=== PATIENT | female | born 1950 | race Caucasian/White ===

== ENCOUNTER 2021-10-18 09:45 | Outpatient (CLI) | payer MEDICARE, SELFPAY ==
[2021-10-18 18:46] LABS: Hematocrit 49.3 % (37.0-47.0); Hemoglobin 15.7 g/dL (12.0-15.0); Mean Corpuscular HGB Conc 31.8 g/dl (32-36); Mean Corpuscular Hemoglobin 28.1 pg (26-34); Mean Corpuscular Volume 88.2 fl (80-100); Platelet Count Result 280 k/mm3 (150-375); Red Blood Count 5.59 M/mm3 (4.2-5.4); White Blood Count 8.3 K/mm3 (4.5-10.0)
[2021-10-18 19:07] LABS: Alanine Aminotransferase 21 U/L (4-35); Albumin Level 4.3 g/dL (3.5-5.1); Alkaline Phosphatase 125 U/L (38-126); Anion Gap 7 mmol/L (8-16); Aspartate Amino Transferase 25 U/L (14-36); Bilirubin,Total 0.5 mg/dL (0.2-1.3); Blood Urea Nitrogen 20 mg/dL (7-17); Calcium 9.4 mg/dL (8.4-10.2); Carbon Dioxide 28 mmol/L (22-30); Chloride 104 mmol/L (98-107); Estimated Glomerular Filt Rate 55; Glucose 184 mg/dL (65-110); HDL Direct 46 mg/dL; Potassium 4.6 mmol/L (3.4-5.0); Sodium 139 mmol/L (137-145); Triglycerides 316 mg/dL (<150)
[2021-10-18 19:08] LABS: LDL Cholesterol Direct 237 mg/dL
[2021-10-18 19:22] LABS: Cholesterol 364 mg/dL (0-200)
[2021-10-18 19:36] LABS: Creatinine Urine 86.5 mg/dL
[2021-10-18 19:41] LABS: MALB Creatinine Ratio 168.6 mg/g (0-30); Microalbumin Urine Random 145.8 mg/L (0-16.7)
[2021-10-18 20:33] LABS: Hemoglobin A1C 7.4 % (<5.7)
== END 2021-10-18 09:46 | disposition home or self-care (01) ==
PROVIDERS: PCP Family Medicine; Visit Provider Family Medicine
DX: E11.9 Type 2 diabetes mellitus without complications (principal); I82.90 Acute embolism and thrombosis of unspecified vein; I10 Essential (primary) hypertension
CPT/HCPCS: 36415; 80053; 80061; 82043; 83036; 85027

== ENCOUNTER 2021-10-23 12:20 | Outpatient (CLI) | payer MEDICARE, SELFPAY ==
[2021-10-23 19:10] LABS: Basophils Absolute Auto 0.1 K/mm3 (0.0-0.1); Basophils Percent Auto 0.9 % (0.2-1.2); Eosinophils Absolute Auto 0.1 K/mm3 (0-0.3); Eosinophils Percent Auto 1.1 % (0-4.4); Hematocrit 49.2 % (37.0-47.0); Hemoglobin 15.1 g/dL (12.0-15.0); Immature Granulocyte Absolute 0.04 K/mm3 (0.00-0.031); Immature Granulocyte Percent A 0.4 % (0-0.5); Lymphocytes Absolute Auto 2.83 K/mm3 (0.9-3.2); Lymphocytes Percent Auto 31.8 % (18.3-44.2); Mean Corpuscular HGB Conc 30.7 g/dl (32-36); Mean Corpuscular Hemoglobin 27.5 pg (26-34); Mean Corpuscular Volume 89.6 fl (80-100); Mean Platelet Volume 11.1 fl (7.4-10.4); Monocytes Absolute Auto 0.7 K/mm3 (0.1-0.6); Monocytes Percent Auto 7.9 % (2.6-8.5); Neutrophils Absolute Auto 5.2 K/mm3 (1.3-6.7); Neutrophils Percent Auto 57.9 % (45.5-73.1); Platelet Count Result 290 k/mm3 (150-375); Red Blood Count 5.49 M/mm3 (4.2-5.4); Red Cell Distribution Width 14.1 % (11.5-14.5); White Blood Count 8.9 K/mm3 (4.5-10.0)
[2021-10-26 14:52] LABS: Erythropoietin (EPO) 8.6 mIU/mL (2.6-18.5)
== END 2021-10-23 12:21 | disposition home or self-care (01) ==
PROVIDERS: PCP Family Medicine; Visit Provider Family Medicine
DX: E11.9 Type 2 diabetes mellitus without complications (principal); D75.1 Secondary polycythemia
CPT/HCPCS: 36415; 82668; 85025

== ENCOUNTER 2021-11-29 07:51 | Outpatient (CLI) | payer MEDICARE, SELFPAY ==
[2021-11-29 19:39] LABS: Hematocrit 47.6 % (37.0-47.0); Hemoglobin 14.3 g/dL (12.0-15.0); Mean Corpuscular Hemoglobin 27.4 pg (26-34); Mean Corpuscular Volume 91.4 fl (80-100); Platelet Count Result 280 k/mm3 (150-375); Red Blood Count 5.21 M/mm3 (4.2-5.4); Red Cell Distribution Width 14.8 % (11.5-14.5); White Blood Count 9.4 K/mm3 (4.5-10.0)
== END 2021-11-29 07:52 | disposition home or self-care (01) ==
PROVIDERS: PCP Family Medicine; Visit Provider Family Medicine
DX: D75.1 Secondary polycythemia (principal)
CPT/HCPCS: 36415; 85027

== ENCOUNTER 2021-12-12 15:40 | Outpatient (CLI) | payer MEDICARE, SELFPAY ==
--- NOTE | ~2021-12-12 | CT_ITS ---
EXAMINATION: CT brain wo con DATE: 12/12/2021 15:57 INDICATION: Headache. TECHNIQUE: Computed tomography (CT) of the head was performed without intravenous contrast. The mA wa s adjusted according to patient size. Iterative reconstruction technique was employed. The dose-lengt h product was 605.33 mGy-cm. COMPARISON: None FINDINGS: There are old infarcts in the bilateral basal ganglia. There are scattered areas of low att enuation in the cerebral white matter. There is no intracranial hemorrhage, acute infarction, or abno rmal intracranial mass lesion. The ventricles are normal in size. There is mild mucosal thickening in the paranasal sinuses. There are likely changes of ocular lens replacement surgeries. There is a rig ht otomastoid effusion. There is a left mastoid effusion. IMPRESSION: 1. Old infarcts in the bilateral basal ganglia. 2. Moderate nonspecific cerebral white matter disease, which likely represents chronic small vessel i schemic disease. Reviewed, dictated and finalized at location B. IMPRESSION: 1. Old infarcts in the bilateral basal ganglia. 2. Moderate nonspecific cerebral white matter disease, which likely represents chronic small vessel ischemic disease.
== END 2021-12-12 15:41 | disposition home or self-care (01) ==
PROVIDERS: PCP Family Medicine; Visit Provider Family Medicine
DX: R51.9 Headache, unspecified (principal); R90.82 White matter disease, unspecified; Z86.73 Personal history of transient ischemic attack (TIA), and cerebral infarction without residual deficits
CPT/HCPCS: 70450

== ENCOUNTER 2022-04-23 09:41 | Outpatient (CLI) | payer MEDICARE, SELFPAY ==
[2022-04-23 19:49] LABS: Basophils Absolute Auto 0.1 K/mm3 (0.0-0.1); Eosinophils Absolute Auto 0.1 K/mm3 (0-0.3); Eosinophils Percent Auto 1.5 % (0-4.4); Hematocrit 48.4 % (37.0-47.0); Hemoglobin 14.7 g/dL (12.0-15.0); Immature Granulocyte Absolute 0.03 K/mm3 (0.00-0.031); Immature Granulocyte Percent A 0.3 % (0-0.5); Lymphocytes Absolute Auto 3.01 K/mm3 (0.9-3.2); Lymphocytes Percent Auto 32.5 % (18.3-44.2); Mean Corpuscular HGB Conc 30.4 g/dl (32-36); Mean Corpuscular Hemoglobin 28.4 pg (26-34); Mean Corpuscular Volume 93.6 fl (80-100); Mean Platelet Volume 10.9 fl (7.4-10.4); Monocytes Absolute Auto 0.7 K/mm3 (0.1-0.6); Monocytes Percent Auto 7.8 % (2.6-8.5); Neutrophils Absolute Auto 5.3 K/mm3 (1.3-6.7); Neutrophils Percent Auto 56.9 % (45.5-73.1); Platelet Count Result 306 k/mm3 (150-375); Red Blood Count 5.17 M/mm3 (4.2-5.4); Red Cell Distribution Width 13.5 % (11.5-14.5); White Blood Count 9.3 K/mm3 (4.5-10.0)
[2022-04-23 19:59] LABS: Alanine Aminotransferase 16 U/L (6-35); Albumin Level 4.4 g/dL (3.5-5.1); Alkaline Phosphatase 123 U/L (38-126); Anion Gap 14 mmol/L (8-16); Aspartate Amino Transferase 24 U/L (14-36); Bilirubin,Total 0.7 mg/dL (0.2-1.3); Blood Urea Nitrogen 19 mg/dL (7-17); Calcium 9.7 mg/dL (8.4-10.2); Carbon Dioxide 29 mmol/L (22-30); Chloride 102 mmol/L (98-107); Cholesterol 209 mg/dL (0-200); Estimated Glomerular Filt Rate 49; Glucose 133 mg/dL (65-110); HDL Direct 42 mg/dL; Potassium 4.2 mmol/L (3.4-5.0); Sodium 145 mmol/L (137-145); Triglycerides 191 mg/dL (<150)
[2022-04-23 20:10] LABS: LDL Cholesterol Direct 131 mg/dL
[2022-04-23 21:07] LABS: Creatinine Urine 89.9 mg/dL
[2022-04-23 21:11] LABS: Microalbumin Urine Random 148.3 mg/L (0-16.7)
== END 2022-04-23 09:42 | disposition home or self-care (01) ==
LOC: ANHBWCLAB 09:42
PROVIDERS: PCP Family Medicine; Visit Provider Family Medicine
DX: E78.5 Hyperlipidemia, unspecified (principal); Z78.0 Asymptomatic menopausal state; I10 Essential (primary) hypertension; G47.33 Obstructive sleep apnea (adult) (pediatric); D75.1 Secondary polycythemia; E11.9 Type 2 diabetes mellitus without complications
CPT/HCPCS: 36415; 80053; 80061; 82043; 83036; 85025

== ENCOUNTER 2022-07-30 07:39 | Outpatient (CLI) | payer MEDICARE, SELFPAY ==
--- NOTE | ~2022-07-30 | XR_ITS ---
EXAMINATION: XR finger 4th RT min 2V DATE: 07/30/2022 08:02 INDICATION: Right fourth digit trigger finger TECHNIQUE: Dorsal palmar, lateral and 2 oblique views of the right fourth digit were obtained COMPARISON: None FINDINGS: Bone alignment is normal. There is an ossicle at the dorsal aspect of the fourth distal interphalange al joint along the dorsal base of the distal phalanx where there is an indistinct cortical margin in this could represent either an enthesopathic ossicle at the distal extensor digiti longus tendon paty cent to an erosion versus minimally distracted avulsion fracture of a dorsal osteophyte. Polyarticula r osteoarthritis, severe at the fourth distal interphalangeal joint, moderate severity at the remaini ng interphalangeal joints of the third-fifth digits and mild at multiple additional joints at the rig ht wrist and carpus. There are chronic appearing erosions with sclerotic margins at the fourth distal interphalangeal joint and at the ulnar styloid process. Some prominent lucency with sclerotic margin s at the lunate which could represent erosion or degenerative subchondral cyst. IMPRESSION: 1. Enthesopathic ossicle of the distal extensor digitorum longus tendon of the fourth digit versus av ulsion fracture of osteophyte at the dorsal base of the fourth distal phalanx. Correlate with clinica l history and for point tenderness. 2. 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 Differential would include erosive osteoarthritis, crystalline arthropathy such as gout or other inflammatory art hritis. Reviewed, dictated and finalized at location D. RAFT SKIN BURNISHER IMPRESSION: 1. Enthesopathic ossicle of the distal extensor digitorum longus tendon of the fourth digit versus avulsion fracture of osteophyte at the dorsal base of the f ourth distal phalanx. Correlate with clinical history and for point tenderness. 2. Polyarticular osteoarthritis, severe at the fourth distal interphalangeal emelyn int where there are some periarticular erosions with additional possible erosio n at the ulnar styloid process. Differential would include erosive osteoarthrit is, crystalline arthropathy such as gout or other inflammatory arthritis.
[2022-07-30 19:37] LABS: Alanine Aminotransferase 22 U/L (6-35); Albumin Level 4.1 g/dL (3.5-5.1); Alkaline Phosphatase 123 U/L (38-126); Anion Gap 7 mmol/L (8-16); Aspartate Amino Transferase 25 U/L (14-36); Bilirubin,Total 0.5 mg/dL (0.2-1.3); Blood Urea Nitrogen 15 mg/dL (7-17); Calcium 9.5 mg/dL (8.4-10.2); Carbon Dioxide 29 mmol/L (22-30); Chloride 106 mmol/L (98-107); Estimated Glomerular Filt Rate 54; Glucose 156 mg/dL (65-110); Potassium 4.5 mmol/L (3.4-5.0); Sodium 142 mmol/L (137-145)
[2022-07-30 20:21] LABS: Creatinine Urine 74.5 mg/dL
[2022-07-30 20:47] LABS: Hemoglobin A1C 6.9 % (<5.7)
[2022-07-30 20:49] LABS: MALB Creatinine Ratio 304.8 mg/g (0-30); Microalbumin Urine Random 227.1 mg/L (0-16.7)
== END 2022-07-30 07:40 | disposition home or self-care (01) ==
PROVIDERS: PCP Family Medicine; Visit Provider Family Medicine
DX: M65.30 Trigger finger, unspecified finger (principal); E11.9 Type 2 diabetes mellitus without complications; M19.041 Primary osteoarthritis, right hand
CPT/HCPCS: 36415; 73140; 80053; 82043; 83036

== ENCOUNTER 2022-10-29 10:44 | Outpatient (CLI) | payer MEDICARE, SELFPAY ==
[2022-10-29 19:30] LABS: Basophils Absolute Auto 0.1 K/mm3 (0.0-0.1); Basophils Percent Auto 0.9 % (0.2-1.2); Eosinophils Absolute Auto 0.1 K/mm3 (0-0.3); Eosinophils Percent Auto 1.3 % (0-4.4); Hematocrit 48.1 % (37.0-47.0); Hemoglobin 14.3 g/dL (12.0-15.0); Immature Granulocyte Absolute 0.02 K/mm3 (0.00-0.031); Immature Granulocyte Percent A 0.2 % (0-0.5); Lymphocytes Absolute Auto 3.81 K/mm3 (0.9-3.2); Lymphocytes Percent Auto 41.5 % (18.3-44.2); Mean Corpuscular HGB Conc 29.7 g/dl (32-36); Mean Corpuscular Volume 90.8 fl (80-100); Monocytes Absolute Auto 0.6 K/mm3 (0.1-0.6); Monocytes Percent Auto 6.9 % (2.6-8.5); Neutrophils Absolute Auto 4.5 K/mm3 (1.3-6.7); Neutrophils Percent Auto 49.2 % (45.5-73.1); Platelet Count Result 292 k/mm3 (150-375); Red Cell Distribution Width 14.4 % (11.5-14.5); White Blood Count 9.2 K/mm3 (4.5-10.0)
[2022-10-29 19:50] LABS: Hemoglobin A1C 7.7 % (<5.7)
[2022-10-29 20:21] LABS: Ovalocytes 1+ (NORMAL); Platelet Estimate Adequate (Adequate); Schistocytes None Seen (NORMAL)
[2022-10-29 21:16] LABS: Creatinine Urine 65.9 mg/dL
[2022-10-29 21:19] LABS: MALB Creatinine Ratio 23.1 mg/g (0-30); Microalbumin Urine Random 15.2 mg/L (0-16.7)
== END 2022-10-29 10:45 | disposition home or self-care (01) ==
PROVIDERS: PCP Family Medicine; Visit Provider Family Medicine
DX: E11.9 Type 2 diabetes mellitus without complications (principal); M65.30 Trigger finger, unspecified finger
CPT/HCPCS: 36415; 82043; 83036; 85025

== ENCOUNTER 2023-05-12 07:46 | Outpatient (CLI) | payer MEDICARE, SELFPAY ==
[2023-05-12 19:39] LABS: Alanine Aminotransferase 21 U/L (6-35); Albumin Level 4.3 g/dL (3.5-5.1); Alkaline Phosphatase 95 U/L (38-126); Anion Gap 13 mmol/L (8-16); Aspartate Amino Transferase 33 U/L (14-36); Bilirubin,Total 0.7 mg/dL (0.2-1.3); Blood Urea Nitrogen 22 mg/dL (7-17); Calcium 10.1 mg/dL (8.4-10.2); Carbon Dioxide 28 mmol/L (22-30); Chloride 104 mmol/L (98-107); Estimated Glomerular Filt Rate 26; Glucose 115 mg/dL (65-110); Potassium 4.3 mmol/L (3.4-5.0); Sodium 145 mmol/L (137-145)
[2023-05-12 19:57] LABS: Creatinine Urine 28.5 mg/dL
[2023-05-12 20:02] LABS: MALB Creatinine Ratio 353.3 mg/g (0-30); Microalbumin Urine Random 100.7 mg/L (0-16.7)
[2023-05-12 20:57] LABS: Hemoglobin A1C 6.6 % (<5.7)
== END 2023-05-12 07:47 | disposition home or self-care (01) ==
PROVIDERS: PCP Family Medicine; Visit Provider Family Medicine
DX: E11.9 Type 2 diabetes mellitus without complications (principal)
CPT/HCPCS: 36415; 80053; 82043; 83036

== ENCOUNTER 2023-06-05 08:39 | Outpatient (CLI) | payer MEDICARE, SELFPAY ==
[2023-06-05 21:01] LABS: Albumin Level 4.2 g/dL (3.5-5.1); Anion Gap 7 mmol/L (8-16); Blood Urea Nitrogen 18 mg/dL (7-17); Calcium 9.7 mg/dL (8.4-10.2); Carbon Dioxide 29 mmol/L (22-30); Chloride 104 mmol/L (98-107); Estimated Glomerular Filt Rate 37; Glucose 140 mg/dL (65-110); Phosphorus 3.3 mg/dL (2.5-4.5); Potassium 3.3 mmol/L (3.4-5.0); Sodium 140 mmol/L (137-145)
[2023-06-05 21:07] LABS: Appearance Urine Clear (Clear); Bacteria Urine None Seen /hpf; Bilirubin Urine Negative (Negative); Blood Urine Trace (Negative); Color Urine Yellow (Yellow); Glucose Urine UA Negative (Negative); Ketones Urine Negative (Negative); Leukocyte Esterase Ur Negative LEU/UL (NEGATIVE); Nitrate Urine Negative (Negative); Protein Urine 1+ mg/dL (Negative); RBC Urine 0-2 /hpf (0-2); Specific Grav Ur 1.009 (1.001-1.035); Squamous Epithelial Cell Urine None seen /hpf (Few); Urobilinogen Urine 0.2 mg/dL (<2.0); WBC Urine 0-5 /hpf (0-3)
[2023-06-05 21:14] LABS: Add Urine Microscopic? YES
== END 2023-06-05 08:40 | disposition home or self-care (01) ==
PROVIDERS: PCP Family Medicine; Visit Provider Family Medicine
DX: N18.9 Chronic kidney disease, unspecified (principal)
CPT/HCPCS: 36415; 80069; 81001

== ENCOUNTER 2023-07-10 09:12 | Outpatient (CLI) | payer MEDICARE, SELFPAY ==
[2023-07-10 19:00] LABS: Hemoglobin 11.7 g/dL (12.0-15.0); Mean Corpuscular HGB Conc 27.9 g/dl (32-36); Mean Corpuscular Hemoglobin 24.7 pg (26-34); Mean Corpuscular Volume 88.6 fl (80-100); Mean Platelet Volume 10.8 fl (7.4-10.4); Platelet Count Result 323 k/mm3 (150-375); Red Blood Count 4.74 M/mm3 (4.2-5.4); Red Cell Distribution Width 16.3 % (11.5-14.5); White Blood Count 8.6 K/mm3 (4.5-10.0)
[2023-07-10 19:20] LABS: Parathyroid Intact 45.5 pg/mL (7.5-53.5)
[2023-07-10 19:37] LABS: Creatinine Urine 153.5 mg/dL
[2023-07-10 19:38] LABS: Albumin Level 3.9 g/dL (3.5-5.1); Anion Gap 7 mmol/L (8-16); Blood Urea Nitrogen 20 mg/dL (7-17); Calcium 9.7 mg/dL (8.4-10.2); Carbon Dioxide 33 mmol/L (22-30); Chloride 102 mmol/L (98-107); Complement C3 152 mg/dL (88-165); Creatine Kinase 58 U/L (30-135); Estimated Glomerular Filt Rate 37; Glucose 108 mg/dL (65-110); Phosphorus 2.9 mg/dL (2.5-4.5); Potassium 3.2 mmol/L (3.4-5.0); Sodium 142 mmol/L (137-145)
[2023-07-10 20:04] LABS: Total Protein Urine Random 344 mg/dL; Ur Ttl Prot Creatinine Ratio 2.24 mg/mg (0-0.20)
[2023-07-10 20:47] LABS: Add Urine Microscopic? YES
[2023-07-10 20:48] LABS: Appearance Urine Clear (Clear); Color Urine Yellow (Yellow); Protein Urine 3+ mg/dL (Negative); Specific Grav Ur >= 1.030 (1.001-1.035); pH Urine 6.5 (5.0-9.0)
[2023-07-10 20:49] LABS: Bilirubin Urine Negative (Negative); Blood Urine Trace-Intact (Negative); Glucose Urine UA Negative (Negative); Ketones Urine Trace mg/dL (Negative); Leukocyte Esterase Ur Negative LEU/UL (NEGATIVE); Nitrate Urine Negative (Negative); Urobilinogen Urine 0.2 mg/dL (<2.0)
[2023-07-10 20:50] LABS: Hyaline Casts Urine 0-2 /lpf; Squamous Epithelial Cell Urine Occasional /hpf (Few); WBC Urine 0-3 /hpf (0-3)
[2023-07-12 21:10] LABS: Kappa\\Lambda Light Chains 2.77 (0.26-1.65); Lambda Light Chain 44.5 mg/L (5.7-26.3)
[2023-07-15 18:49] LABS: Complement Total CH50 60 U/mL (31-60)
== END 2023-07-10 09:13 | disposition home or self-care (01) ==
LOC: ANHBWCLAB 09:15
PROVIDERS: PCP Family Medicine; Visit Provider Internal Medicine Nephrology
DX: E78.5 Hyperlipidemia, unspecified (principal); N18.31 Chronic kidney disease, stage 3a
CPT/HCPCS: 36415; 80069; 81001; 82550; 82570; 83883; 83970; 84156; 85027; 86038; 86039; 86160; 86162; 86334

== ENCOUNTER 2023-07-15 12:35 | Outpatient (CLI) | payer MEDICARE, SELFPAY ==
[2023-07-15 19:29] LABS: Total Volume 24 Hour Urine 1500 ml
[2023-07-21 18:09] LABS: Albumin 28 %; Pro/Creat Ratio 3227 mg/g creat (<150); Pro/Creat Ratio mg/mg 3.227 (<0.150); Protein,total, 24 Hr Ur 2895 mg/24 h (<150)
== END 2023-07-15 12:36 | disposition home or self-care (01) ==
PROVIDERS: PCP Family Medicine; Visit Provider Internal Medicine Nephrology
DX: N18.31 Chronic kidney disease, stage 3a (principal)
CPT/HCPCS: 81050; 84540; 86335

== ENCOUNTER 2023-08-11 09:21 | Outpatient (CLI) | payer MEDICARE, SELFPAY ==
[2023-08-11 19:23] LABS: Erythrocyte Sedimentation Rate 19 mm/hr (0-20)
[2023-08-11 20:38] LABS: Rheumatoid Factor < 12.0 IU/ML (<12)
[2023-08-11 21:25] LABS: Albumin Level 4.1 g/dL (3.5-5.1); Anion Gap 8 mmol/L (8-16); Blood Urea Nitrogen 22 mg/dL (7-17); Calcium 10.2 mg/dL (8.4-10.2); Carbon Dioxide 26 mmol/L (22-30); Chloride 106 mmol/L (98-107); Estimated Glomerular Filt Rate 28; Glucose 135 mg/dL (65-110); Phosphorus 3.1 mg/dL (2.5-4.5); Potassium 3.7 mmol/L (3.4-5.0); Sodium 140 mmol/L (137-145)
[2023-08-14 03:57] LABS: Anti Glomerular Basement Memb <1.0 AI (<1.0)
[2023-08-14 10:40] LABS: SM Antibody <1.0; SM/RNP Antibody <1.0
[2023-08-14 10:41] LABS: SS-A <1.0; SS-B <1.0
[2023-08-14 23:00] LABS: ANCA Screen Negative (Negative)
[2023-08-16 14:51] LABS: Anti Nuclear Antibody Titer 1:40 (Negative)
[2023-08-17 22:32] LABS: Cryoglobulin, QL Negative (Negative)
== END 2023-08-11 09:22 | disposition home or self-care (01) ==
PROVIDERS: PCP Family Medicine; Visit Provider Internal Medicine Nephrology
DX: R76.0 Raised antibody titer (principal); N18.31 Chronic kidney disease, stage 3a
CPT/HCPCS: 36415; 80069; 82595; 83520; 85652; 86036; 86038; 86039; 86225; 86235; 86430

== ENCOUNTER 2023-08-13 08:14 | Outpatient (CLI) | payer MEDICARE, SELFPAY ==
[2023-08-13 18:26] LABS: Hemoglobin A1C 7.7 % (<5.7)
[2023-08-13 18:52] LABS: Cholesterol 188 mg/dL (0-200); HDL Direct 35 mg/dL; Triglycerides 262 mg/dL (<150)
[2023-08-13 19:03] LABS: LDL Cholesterol Direct 94 mg/dL
[2023-08-13 19:07] LABS: Creatinine Urine 17.4 mg/dL
[2023-08-13 19:17] LABS: MALB Creatinine Ratio 467.8 mg/g (0-30); Microalbumin Urine Random 81.4 mg/L (0-16.7)
== END 2023-08-13 08:15 | disposition home or self-care (01) ==
PROVIDERS: PCP Nurse Practitioner Adult Health; Visit Provider Nurse Practitioner Adult Health
DX: E11.9 Type 2 diabetes mellitus without complications (principal)
CPT/HCPCS: 36415; 80061; 82043; 83036

== ENCOUNTER 2023-11-04 09:24 | Outpatient (CLI) | payer MEDICARE, SELFPAY ==
[2023-11-04 19:25] LABS: Erythrocyte Sedimentation Rate 29 mm/hr (0-20)
[2023-11-04 19:45] LABS: Rheumatoid Factor < 12.0 IU/ML (<12)
[2023-11-04 19:45] LABS: Parathyroid Intact 29.9 pg/mL (7.5-53.5)
[2023-11-04 19:52] LABS: Creatinine Urine 116.3 mg/dL
[2023-11-04 20:02] LABS: Albumin Level 4.6 g/dL (3.5-5.1); Anion Gap 9 mmol/L (4-12); Blood Urea Nitrogen 20 mg/dL (7-17); Calcium 10.5 mg/dL (8.4-10.2); Carbon Dioxide 25 mmol/L (22-30); Chloride 106 mmol/L (98-107); Estimated Glomerular Filt Rate 26; Glucose 120 mg/dL (65-110); Phosphorus 3.6 mg/dL (2.5-4.5); Potassium 3.9 mmol/L (3.4-5.0); Sodium 140 mmol/L (137-145)
[2023-11-04 20:42] LABS: Total Protein Urine Random 319 mg/dL; Ur Ttl Prot Creatinine Ratio 2.74 mg/mg (0-0.20)
[2023-11-05 14:54] LABS: SM Antibody <1.0 NEG AI (<1.0 NEG); SM/RNP Antibody <1.0 NEG AI (<1.0 NEG); SS-A <1.0 NEG AI (<1.0 NEG); SS-B <1.0 NEG AI (<1.0 NEG)
[2023-11-07 14:08] LABS: Anti Glomerular Basement Memb <1.0 AI
[2023-11-08 04:54] LABS: ANCA Screen NEGATIVE (NEGATIVE)
[2023-11-11 11:09] LABS: Cryoglobulin, QL Negative (Negative)
== END 2023-11-04 09:25 | disposition home or self-care (01) ==
PROVIDERS: PCP Family Medicine; Visit Provider Internal Medicine Nephrology
DX: R76.0 Raised antibody titer (principal); N18.31 Chronic kidney disease, stage 3a
CPT/HCPCS: 36415; 80069; 82570; 82595; 83520; 83970; 84156; 85652; 86036; 86038; 86225; 86235; 86430

== ENCOUNTER 2024-02-11 07:39 | Outpatient (CLI) | payer MEDICARE, SELFPAY ==
[2024-02-11 19:02] LABS: Hemoglobin 13.2 g/dL (12.0-15.0); Mean Corpuscular HGB Conc 29.3 g/dl (32-36); Mean Corpuscular Hemoglobin 26.6 pg (26-34); Mean Corpuscular Volume 90.5 fl (80-100); Mean Platelet Volume 11.1 fl (7.4-10.4); Platelet Count Result 320 k/mm3 (150-375); Red Blood Count 4.97 M/mm3 (4.2-5.4); Red Cell Distribution Width 15.9 % (11.5-14.5); White Blood Count 10.9 K/mm3 (4.5-10.0)
[2024-02-11 20:20] LABS: Creatinine Urine 39.5 mg/dL; Creatinine Urine 40.1 mg/dL; Parathyroid Intact 26.3 pg/mL (7.5-53.5); Total Protein Urine Random 92 mg/dL; Ur Ttl Prot Creatinine Ratio 2.33 mg/mg (0-0.20)
[2024-02-11 20:25] LABS: MALB Creatinine Ratio 274.1 mg/g (0-30); Microalbumin Urine Random 109.9 mg/L (0-16.7)
[2024-02-11 20:29] LABS: Cholesterol 170 mg/dL (0-200); Estimated Glomerular Filt Rate 23; HDL Direct 41 mg/dL; Triglycerides 187 mg/dL (<150)
[2024-02-11 20:32] LABS: Add Urine Microscopic? YES; Appearance Urine Clear (Clear); Bacteria Urine Rare /hpf; Bilirubin Urine Negative (Negative); Blood Urine Trace (Negative); Color Urine Yellow (Yellow); Glucose Urine UA Negative (Negative); Hyaline Casts Urine Present /lpf; Ketones Urine Negative (Negative); Leukocyte Esterase Ur Trace LEU/UL (Negative); Need Manual Microscopic Reviewed; Nitrate Urine Negative (Negative); Protein Urine 1+ mg/dL (Negative); RBC Urine 0-2 /hpf (0-2); Squamous Epithelial Cell Urine Occasional /hpf (Few); Urobilinogen Urine 0.2 mg/dL (<2.0); WBC Urine 0-5 /hpf (0-3)
[2024-02-11 20:40] LABS: LDL Cholesterol Direct 94 mg/dL
[2024-02-11 20:54] LABS: Albumin Level 4.2 g/dL (3.5-5.1); Anion Gap 10 mmol/L (4-12); Blood Urea Nitrogen 20 mg/dL (7-17); Calcium 10.3 mg/dL (8.4-10.2); Carbon Dioxide 26 mmol/L (22-30); Chloride 106 mmol/L (98-107); Estimated Glomerular Filt Rate 22; Glucose 92 mg/dL (65-110); Phosphorus 3.4 mg/dL (2.5-4.5); Potassium 4.6 mmol/L (3.4-5.0); Sodium 142 mmol/L (137-145)
== END 2024-02-11 07:40 | disposition home or self-care (01) ==
LOC: ANHBWCLAB 07:40
PROVIDERS: Internal Medicine Nephrology; PCP Nurse Practitioner Adult Health; Visit Provider Nurse Practitioner Adult Health
DX: E11.22 Type 2 diabetes mellitus with diabetic chronic kidney disease (principal); N18.31 Chronic kidney disease, stage 3a; E78.5 Hyperlipidemia, unspecified; R20.2 Paresthesia of skin
CPT/HCPCS: 36415; 80061; 80069; 81001; 82043; 82565; 82570; 82607; 82746; 83036; 83970; 84156; 85027

== ENCOUNTER 2024-04-12 10:44 | Outpatient (CLI) | payer MEDICARE, SELFPAY ==
--- NOTE | ~2024-04-12 | US_ITS ---
Renal-Bladder ultrasound Clinical History: Chronic kidney disease Technique: Real-time sonographic imaging of the kidneys and urinary bladder was performed. Findings: The right kidney measures 11.8 cm in length and the left kidney measures 9.4 cm. There is n o hydronephrosis or renal calculus identified. Renal cortical echogenicity is mildly increased. No re nal mass lesion is identified. The urinary bladder is collapsed, limiting evaluation. Impression: Mildly echogenic kidneys, suggestive of chronic medical renal disease. Reviewed, dictated and finalized at location M. Impression: Mildly echogenic kidneys, suggestive of chronic medical renal disease.
== END 2024-04-12 10:45 | disposition home or self-care (01) ==
LOC: GOSHIMG 10:44
PROVIDERS: PCP Nurse Practitioner Adult Health; Visit Provider Internal Medicine Nephrology
DX: R93.429 Abnormal radiologic findings on diagnostic imaging of unspecified kidney (principal); N18.31 Chronic kidney disease, stage 3a
CPT/HCPCS: 76775

== ENCOUNTER 2024-04-19 08:18 | Outpatient (CLI) | payer MEDICARE, SELFPAY ==
[2024-04-19 18:59] LABS: Hematocrit 42.6 % (37.0-47.0); Hemoglobin 12.6 g/dL (12.0-15.0); Mean Corpuscular HGB Conc 29.6 g/dl (32-36); Mean Corpuscular Volume 91.2 fl (80-100); Mean Platelet Volume 10.8 fl (7.4-10.4); Platelet Count Result 286 k/mm3 (150-375); Red Blood Count 4.67 M/mm3 (4.2-5.4); Red Cell Distribution Width 15.9 % (11.5-14.5); White Blood Count 10.7 K/mm3 (4.5-10.0)
[2024-04-19 19:26] LABS: Albumin Level 4.3 g/dL (3.5-5.1); Anion Gap 10 mmol/L (4-12); Blood Urea Nitrogen 28 mg/dL (7-17); Carbon Dioxide 27 mmol/L (22-30); Chloride 103 mmol/L (98-107); Estimated Glomerular Filt Rate 22; Glucose 105 mg/dL (65-110); Phosphorus 4.2 mg/dL (2.5-4.5); Potassium 4.2 mmol/L (3.4-5.0); Sodium 140 mmol/L (137-145)
[2024-04-19 19:31] LABS: Creatinine Urine 51.2 mg/dL; Total Protein Urine Random 136 mg/dL; Ur Ttl Prot Creatinine Ratio 2.66 mg/mg (0-0.20)
[2024-04-19 21:18] LABS: Parathyroid Intact < 14.5 pg/mL (14.5-75.2)
== END 2024-04-19 08:19 | disposition home or self-care (01) ==
PROVIDERS: PCP Nurse Practitioner Adult Health; Visit Provider Internal Medicine Nephrology
DX: E78.5 Hyperlipidemia, unspecified (principal); N18.31 Chronic kidney disease, stage 3a
CPT/HCPCS: 36415; 80069; 82570; 83970; 84156; 85027

== ENCOUNTER 2024-06-03 09:10 | Outpatient (CLI) | payer MEDICARE, SELFPAY ==
[2024-06-03 20:12] LABS: Cholesterol 189 mg/dL (0-200); HDL Direct 39 mg/dL; Triglycerides 213 mg/dL (<150)
[2024-06-03 20:23] LABS: LDL Cholesterol Direct 98 mg/dL
[2024-06-03 21:06] LABS: Creatinine Urine 41.2 mg/dL; Total Protein Urine Random 132 mg/dL
[2024-06-03 21:17] LABS: Hemoglobin A1C 6.7 % (<5.7)
== END 2024-06-03 09:11 | disposition home or self-care (01) ==
PROVIDERS: PCP Nurse Practitioner Adult Health; Visit Provider Internal Medicine Nephrology
DX: E11.22 Type 2 diabetes mellitus with diabetic chronic kidney disease (principal); N18.31 Chronic kidney disease, stage 3a; E78.5 Hyperlipidemia, unspecified
CPT/HCPCS: 36415; 80061; 82570; 83036; 84156

== ENCOUNTER 2024-08-25 07:19 | Outpatient (CLI) | payer MEDICARE, SELFPAY ==
--- OUTSIDE RECORDS SUMMARY | 2024-08-25 07:24 | XMS_ITS | CONTINUITY OF CARE DOCUMENT ---
Author Name be lr Address Unknown Organization [facility] Address [address] [place] [address] [address] [place] [address] Phone [phone] Care Team Providers Care Speech Correction Consultant Name Role Phone Choco Linda MD Unavailable [phone]
--- OUTSIDE RECORDS SUMMARY | 2024-08-25 07:24 | XMS_ITS | Encounter Summary ---
Author Organization [facility] Address [address] [place] [address] Phone Care Team Providers Care Warehouse Coordinator Name Role Phone Valerie Grimaldo MD Primary Care Provider + [phone] Cody Polk MD Unavailable [phone] Wen Nelson MD Unavailable José Miguel Alva MD Unavailable +[phone] Drew Martínez MD Unavailable [phone] Lopez Nunez DO Unavailable [phone] Autumn Chapman OD Unavailable [phone] Alcon Camacho MD Unavailable [phone] Tess Brennan MD Unavailable [phone] Tee Moura MD Unavailable [phone] Michel Linda MD Unavailable Verena Crespo MD Unavailable [phone] Unknown, Notinfile Primary Care Provider Unavail able Julian Encarnacion MD Primary Care Provider Encounter Details Date Type Department Care Team (Late st Contact Info) Description 11/07/2017 Orders Only [facility] Provider, MD Tayler [address] [place] [address] Social History Tobacco Use Types Packs/Day Years Used Date Smoking Tobacco: Never Smokeless Tobacco: Never Alcohol Use Standard Drinks/Week Comments No 0 (1 standard drink = 0.6 oz pur e alcohol) Comments No Sex and Gender Information Value Date Recorded Sex Assigned at Not on file 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 Historical Provider LAB BLOOD ORDERABLES Soledad l Result documented in this encounter Visit Diagnoses Not on filedocumented in this encounter Care Teams Warehouse Coordinator Relationship Specialty Start Date End Date Valerie Grimaldo MD PCP - General 09/27/16 03/16/20 Unknown, Notinfile PCP - General 03/17/20 11/21/20 Julian Encarnacion MD [address] [address] [place] [address] PCP - General Family Medicine 11/22/20 [place] [address] [facility] [address] [place] [address] Pulmonary Disease 02/27/17 Wen Nelson MD [address] [address] Obstetrics and Gynecology 02/27/17 José Miguel Alva MD [address] [facility] [address] [place], [place] [id number] Gynecologic Oncology 02/27/17 Drew Martínez MD [address] [place] [address] Orthopedic Surgery 02/27/17 Lopez Nunez DO [address] [place] [address] Consulting Physician Gastroenterology 04/25/17 Autumn Chapman OD [address] [place] [address] Optometry 04/28/17 [place] [address] [address] [facility] [address] [place] [address] Consulting Physician Cardiology 09/07/17 Tess Brennan MD [address] [address] Referring Physician Gastroenterology 09/25/17 Tee Moura MD [address] [address] Referring Physician Surgery 11/29/17 Michel Linda MD [address] [address] Referring Physician General Surgery 03/11/19 Verena Crespo MD [address] [address] Consulting Physician Nephrology 03/13/19 documented as of this encounter
--- OUTSIDE RECORDS SUMMARY | 2024-08-25 07:24 | XMS_ITS | Encounter Summary ---
Author Organization [facility] Address [address] [place] [address] Phone Care Team Providers Care Oracle Identity Management Consultant Name Role Phone Valerie Grimaldo MD Primary Care Provider + [phone] Cody Polk MD Unavailable [phone] Wen Nelson MD Unavailable José Miguel Alva MD Unavailable +[phone] Drew Martínez MD Unavailable [phone] Lopez Nunez DO Unavailable [phone] Autumn Chapman OD Unavailable [phone] Alcon Camacho MD Unavailable [phone] Tess Brennan MD Unavailable [phone] Tee Moura MD Unavailable [phone] Michel Linda MD Unavailable Verena Crespo MD Unavailable [phone] Unknown, Notinfile Primary Care Provider Unavail able Julian Encarnacion MD Primary Care Provider Encounter Details Date Type Department Care Team (Late st Contact Info) Description 10/20/2017 Orders Only [facility] Provider, MD Tayler [address] [place] [address] Social History Tobacco Use Types Packs/Day Years Used Date Smoking Tobacco: Never Smokeless Tobacco: Never Alcohol Use Standard Drinks/Week Comments No 0 (1 standard drink = 0.6 oz pur e alcohol) Comments No Sex and Gender Information Value Date Recorded Sex Assigned at Not on file 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 Historical Provider LAB BLOOD ORDERABLES Soledad l Result documented in this encounter Visit Diagnoses Not on filedocumented in this encounter Care Teams Oracle Identity Management Consultant Relationship Specialty Start Date End Date Valerie Grimaldo MD PCP - General 09/27/16 03/16/20 Unknown, Notinfile PCP - General 03/17/20 11/21/20 Julian Encarnacion MD [address] [address] [place] [address] PCP - General Family Medicine 11/22/20 [place] [address] [facility] [address] [place] [address] Pulmonary Disease 02/27/17 Wen Nelson MD [address] [address] Obstetrics and Gynecology 02/27/17 José Miguel Alva MD [address] [facility] [address] [place], [place] [phone] Gynecologic Oncology 02/27/17 Drew Martínez MD [address] [place] [address] Orthopedic Surgery 02/27/17 Lopez Nunez DO [address] [place] [address] Consulting Physician Gastroenterology 04/25/17 Autumn Chapman OD [address] [place] [address] Optometry 04/28/17 [place] [address] [address] [facility] [address] [place] [address] Consulting Physician Cardiology 09/07/17 Tess Brennan MD [address] [address] Referring Physician Gastroenterology 09/25/17 Tee Moura MD [address] [address] Referring Physician Surgery 11/29/17 Michel Linda MD [address] [address] Referring Physician General Surgery 03/11/19 Verena Crespo MD [address] [address] Consulting Physician Nephrology 03/13/19 documented as of this encounter
--- OUTSIDE RECORDS SUMMARY | 2024-08-25 07:24 | XMS_ITS | Encounter Summary ---
Author Organization [facility] Address [address] [place] [address] Phone Care Team Providers Care Baccarat Dealer Name Role Phone Valerie Grimaldo MD Primary Care Provider + [phone] Cody Polk MD Unavailable [phone] Wen Nelson MD Unavailable [phone] José Miguel Alva MD Unavailable [phone] Drew Martínez MD Unavailable [phone] Lopez Nunez DO Unavailable [phone] Autumn Chapman OD Unavailable [phone] Alcon Camacho MD Unavailable [phone] Tess Brennan MD Unavailable [phone] Tee Moura MD Unavailable [phone] Michel Linda MD Unavailable Verena Crespo MD Unavailable [phone] Unknown, Notinfile Primary Care Provider Unavail able Julian Encarnacion MD Primary Care Provider Encounter Details Date Type Department Care Team (Late st Contact Info) Description 11/26/2017 Orders Only [facility] Provider, MD Tayler [address] [place] [address] Social History Tobacco Use Types Packs/Day Years Used Date Smoking Tobacco: Never Smokeless Tobacco: Never Alcohol Use Standard Drinks/Week Comments No 0 (1 standard drink = 0.6 oz pur e alcohol) Comments No Sex and Gender Information Value Date Recorded Sex Assigned at Not on file 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 Historical Provider LAB BLOOD ORDERABLES Soledad l Result documented in this encounter Visit Diagnoses Not on filedocumented in this encounter Care Teams Baccarat Dealer Relationship Specialty Start Date End Date Valerie Grimaldo MD PCP - General 09/27/16 03/16/20 Unknown, Notinfile PCP - General 03/17/20 11/21/20 Julian Encarnacion MD [address] [address] [place] [address] PCP - General Family Medicine 11/22/20 [place] [address] [facility] [address] [place] [address] Pulmonary Disease 02/27/17 Wen Nelson MD [address] [address] Obstetrics and Gynecology 02/27/17 José Miguel Alva MD [address] [facility] [address] [place], [place] [id number] Gynecologic Oncology 02/27/17 Drew Martínez MD [address] [place] [address] Orthopedic Surgery 02/27/17 Lopez Nunez DO [address] [place] [address] Consulting Physician Gastroenterology 04/25/17 Autumn Chapman OD [address] [place] [address] Optometry 04/28/17 [place] [address] [address] [facility] [address] [place] [address] Consulting Physician Cardiology 09/07/17 Tess Brennan MD [address] [address] Referring Physician Gastroenterology 09/25/17 Tee Moura MD [address] [address] Referring Physician Surgery 11/29/17 Michel Linda MD [address] [address] Referring Physician General Surgery 03/11/19 Verena Crespo MD [address] [address] Consulting Physician Nephrology 03/13/19 documented as of this encounter
--- OUTSIDE RECORDS SUMMARY | 2024-08-25 07:24 | XMS_ITS | Encounter Summary ---
Author Organization [facility] Address [address] [place] [address] Phone Care Team Providers Care Circulator Name Role Phone Valerie Grimaldo MD Primary Care Provider + [phone] Cody Polk MD Unavailable [phone] Wen Nelson MD Unavailable [phone] José Miguel Alva MD Unavailable [phone] Drew Martínez MD Unavailable [phone] Lopez Nunez DO Unavailable [phone] Autumn Chapman OD Unavailable [phone] Alcon Camacho MD Unavailable [phone] Tess Brennan MD Unavailable [phone] Tee Moura MD Unavailable [phone] Michel Linda MD Unavailable Verena Crespo MD Unavailable [phone] Unknown, Notinfile Primary Care Provider Unavail able Julian Encarnacion MD Primary Care Provider [phone] Encounter Details Date Type Department Care Team (Late st Contact Info) Description 10/27/2017 Orders Only [facility] Provider, MD Tayler [address] [place] [address] Social History Tobacco Use Types Packs/Day Years Used Date Smoking Tobacco: Never Smokeless Tobacco: Never Alcohol Use Standard Drinks/Week Comments No 0 (1 standard drink = 0.6 oz pur e alcohol) Comments No Sex and Gender Information Value Date Recorded Sex Assigned at Not on file 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 Historical Provider LAB BLOOD ORDERABLES Soledad l Result documented in this encounter Visit Diagnoses Not on filedocumented in this encounter Care Teams Circulator Relationship Specialty Start Date End Date Valerie Grimaldo MD PCP - General 09/27/16 03/16/20 Unknown, Notinfile PCP - General 03/17/20 11/21/20 Julian Encarnacion MD [address] [address] [place] [address] PCP - General Family Medicine 11/22/20 [place] [address] [facility] [address] [place] [address] Pulmonary Disease 02/27/17 Wen Nelson MD [address] [address] Obstetrics and Gynecology 02/27/17 José Miguel Alva MD [address] [facility] [address] [place], [place] [id number] Gynecologic Oncology 02/27/17 Drew Martínez MD [address] [place] [address] Orthopedic Surgery 02/27/17 Lopez Nunez DO [address] [place] [address] Consulting Physician Gastroenterology 04/25/17 Autumn Chapman OD [address] [place] [address] Optometry 04/28/17 [place] [address] [address] [facility] [address] [place] [address] Consulting Physician Cardiology 09/07/17 Tess Brennan MD [address] [address] Referring Physician Gastroenterology 09/25/17 Tee Moura MD [address] [address] Referring Physician Surgery 11/29/17 Michel Linda MD [address] [address] Referring Physician General Surgery 03/11/19 Verena Crespo MD [address] [address] Consulting Physician Nephrology 03/13/19 documented as of this encounter
--- OUTSIDE RECORDS SUMMARY | 2024-08-25 07:24 | XMS_ITS | Encounter Summary ---
Author Organization [facility] Address [address] [place] [address] Phone Care Team Providers Care Lead Python Developer Name Role Phone Valerie Grimaldo MD Primary Care Provider + [phone] Cody Polk MD Unavailable [phone] Wen Nelson MD Unavailable José Miguel Alva MD Unavailable [phone] Drew Martínez MD Unavailable [phone] Lopez Nunez DO Unavailable [phone] Autumn Chapman OD Unavailable [phone] Alcon Camacho MD Unavailable [phone] Tess Brennan MD Unavailable [phone] Tee Moura MD Unavailable [phone] Michel Linda MD Unavailable Verena Crespo MD Unavailable [phone] Unknown, Notinfile Primary Care Provider Unavail able Julian Encarnacion MD Primary Care Provider Encounter Details Date Type Department Care Team (Late st Contact Info) Description 10/10/2017 Orders Only [facility] Provider, MD [place] [address] [place] [id number] Social History Tobacco Use Types Packs/Day Years Used Date Smoking Tobacco: Never Smokeless Tobacco: Never Alcohol Use Standard Drinks/Week Comments No 0 (1 standard drink = 0.6 oz pur e alcohol) Comments No Sex and Gender Information Value Date Recorded Sex Assigned at Not on file 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 Historical Provider LAB BLOOD ORDERABLES Soledad l Result documented in this encounter Visit Diagnoses Not on filedocumented in this encounter Care Teams Lead Python Developer Relationship Specialty Start Date End Date Valerie Grimaldo MD PCP - General 09/27/16 03/16/20 Unknown, Notinfile PCP - General 03/17/20 11/21/20 Julian Encarnacion MD [address] [address] [place] [address] PCP - General Family Medicine 11/22/[address] [place] [address] [facility] [address] [place] [address] Pulmonary Disease 02/27/17 Wen Nelson MD [address] [address] Obstetrics and Gynecology 02/27/17 José Miguel Alva MD [address] [facility] [address] [place], [place] [id number] Gynecologic Oncology 02/27/17 Drew Martínez MD [address] [place] [address] Orthopedic Surgery 02/27/17 Lopez Nunez DO [address] [place] [address] Consulting Physician Gastroenterology 04/25/17 Autumn Chapman OD [address] [place] [address] Optometry 04/28/17 [place] [address] [facility] [address] [place] [address] Consulting Physician Cardiology 09/07/17 Tess Brennan MD [address] [address] Referring Physician Gastroenterology 09/25/17 Tee Moura MD [address] [address] Referring Physician Surgery 11/29/17 Michel Linda MD [address] [address] Referring Physician General Surgery 03/11/19 Verena Crespo MD [address] [address] Consulting Physician Nephrology 03/13/19 documented as of this encounter
--- OUTSIDE RECORDS SUMMARY | 2024-08-25 07:25 | XMS_ITS | Clinical Summary ---
Author Organization [facility] Address [address] [place] [address] Care Team Providers Care Bridal Gown Fitter Name Role Phone Cody Polk MD Unavailable [phone] Wen Nelson MD Unavailable [phone] José Miguel Alva MD Unavailable [phone] Drew Martínez MD Unavailable [phone] Lopez Nunez DO Unavailable [phone] Autumn Chapman OD Unavailable [phone] Alcon Camacho MD Unavailable [phone] Tess Brennan MD Unavailable [phone] Tee Moura MD Unavailable [phone] Michel Linda MD Unavailable Verena Crespo MD Unavailable [phone] Julian Encarnacion MD Primary Care Provider Allergies Active Allergy Reactions Criticality Noted Date Comments Enoxaparin Other (See comments) Low 04/17/2018 hemorrhage after taking Inositol Unknown Low Metformin Diarrhea Low Reaction: Diarrhea, Can take extended release Metformin Reaction: Diarrhea, Niacin Rash Medium 07/05/2014 Penicillins Itching Low 07/05/2014 Medications aspirin 81 mg tabletIndications: ASVD (arteriosclerotic vascular disease) Take 81 mg by mouth daily. Active blood-glucose meter kitIndications:Typ e 2 diabetes mellitus with other diabetic kidney complication, without long-term current use of insulin ([facility]) Use with glucose strips - monitor glucose checks 2 times daily. 1 each 8 Active cyanocobalamin (Vitamin B-12) 1,000 mcg tabletIndications: Type 2 diabetes mellitus with other diabetic kidney complication, without long-term current use of insulin ([facility]) Take 1 tablet (1,000 mcg total) by mouth daily 90 tablet 3 9 Active pen needle, diabetic 32 gauge x 11/12 needleIndications: Type 2 diabetes mellitus with other diabetic kidney complication, without long-term current use of insulin ([facility]) 1 Dose daily 100 each 11 9 Active blood glucose diagnostic (ACCU-CHEK CECILIA PLUS TEST STRP) stripIndications:t ype 2 diabetes mellitus Use to test blood sugar twice daily. 200 each 1 9 Active allopurinol (ZYLOPRIM) 300 mg tabletIndications: Gouty arthritis Take 1 tablet (300 mg total) by mouth daily 90 tablet 1 9 Active omeprazole (PriLOSEC) 20 mg capsuleIndications :Gastric ulcer with hemorrhage, unspecified chronicity Take 1 capsule (20 mg total) by mouth daily 90 capsule 1 9 Active metFORMIN (GLUMETZA) 500 mg 24 hr tabletIndications: Type 2 diabetes mellitus with stage 4 chronic kidney disease, with long-term current use of insulin ([facility]) Take 500 mg by mouth daily with breakfast Active warfarin (COUMADIN) 1 mg tabletIndications: Recurrent pulmonary embolism (CMS/HCC) ([facility]) Take 1 -3 tablets by mouth daily as directed by MD per INR results. 270 tablet 1 9 Active rosuvastatin (CRESTOR) 40 mg tabletIndications: Ischemic heart disease due to coronary artery obstruction (CMS/HCC) ([facility]),Multiple-typ e hyperlipidemia TAKE 1 TABLET BY MOUTH DAILY 90 tablet 1 0 Active acetaminophen-code ine (TYLENOL with CODEINE #3) 300-30 mg per tabletIndications: Arthritis TAKE 1 TABLET BY MOUTH TWICE DAILY NEEDED FOR PAIN 60 tablet 2 0 Active dulaglutide (TRULICITY) 0.75 mg/0.5 mL pen injectorIndication s:type 2 diabetes mellitus Inject 0.5 mL (0.75 mg total) under the skin once a week 4 pen 3 0 Active warfarin (COUMADIN) 4 mg tabletIndications: Recurrent pulmonary embolism (CMS/HCC) (HCC) Take 1 tablet by mouth once daily or as directed by MD per INR results. 90 tablet 0 Active furosemide (LASIX) 40 mg tabletIndications: Hypertension complicating diabetes (HCC),Chronic diastolic heart failure (HCC) Take 1 tablet (40 mg total) by mouth daily 90 tablet 0 Active metoprolol (LOPRESSOR) 100 mg tabletIndications: Hypertension complicating diabetes (HCC),Ischemic heart disease due to coronary artery obstruction (CMS/HCC) (HCC) Take 1 tablet (100 mg total) by mouth 2 (two) times a day 180 tablet 0 Active insulin NPH (HumuLIN N, NovoLIN N) 100 unit/mL (3 mL) insulin penIndications:Typ e 2 diabetes mellitus with stage 4 chronic kidney disease, with long-term current use of insulin ([facility]) Inject 30 Units under the skin 2 (two) times a day before breakfast and dinner 5 pen 2 0 Active Active Problems Problem Noted Date Diagnosed Date Abnormal mammogram 10/19/2019 Overview (10/19/2019): Dr. Moura evaluation October 18, 2019 documented BI-RADS 3 and plan for six- month repeat diagnostic mammogram and no surgery now Arthritis 12/01/2018 Gouty tophus 09/21/2018 Chronic pain disorder 11/29/2017 Left breast mass 11/29/2017 Overview (11/29/2017): Images from the original note were not included. Dr. Moura to perform biopsy left breast November 2017 Breast sonogram and mammogram (+) Anemia due to GI blood loss 10/07/2017 Pulmonary hypertension 10/05/2017 Overview (10/05/2017): Conditions secondary to obesity, recurrent pulmonary emboli, obstructive sleep apnea ECHO AUGUST 2017 (+) PULMONARY HYPERTENSION DR. MAIER [facility] Valves in general are poorly visualized. Normal left ventricular size, thickness and hyperdynamic systolic function, estimated ejection of >70%. E/A reversal on transmitral doppler suggesting mild diastolic dysfunction. The mitral valve leaflets show non specific thickening with no stenosis or prolapse.Aortic valve appears tri-leaflet with mild sclerosis and without significant stenosis or regurgitation.The tricuspid valve is normal in structure with Mild tricuspid regurgitation. The RVSP is 57 mmhg consistent with Moderate pulmonary hypertension. Left atrium is moderately enlarged. No evidence of pericardial effusion. 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 Corrales Chronic diastolic heart failure 04/25/2017 Overview (03/13/2019): Echocardiogram after coronary stent August 2017 LVEF 70% with severe pulmonary hypertension with PA pressures = 59 and associated diastolic dysfunction persisting Dr. Maier History of endometrial cancer 04/25/2017 Gastric ulcer with hemorrhage 04/25/2017 Overview (01/11/2018): Upper GI bleed secondary to Bleeding gastric ulcers with visible vessel required clips x7 09/25/2017 [facility] TESS Persaud EGD biopsies (-) Dr. Sauceda July 2017 and again January 06, 2018 Stomach ulcer biopsies upper GI bleed July 2017 Stomach, random endoscopic biopsy: 1. Oxyntic gland type mucosa 2. Lymphoid aggregate Stomach, ulcers , endoscopic biopsy ulcer follow-up December 2017: 1. Ulcerated gastric antral type mucosa 2. Acute and chronic inflammation, mild to moderate 3. Reactive epithelial changes 4. Atrophy, mild 5. Negative for Helicobacter-like organisms Chronic rhinitis 02/27/2017 Hyperlipidemia associated with type 2 diabetes m ellitus 02/27/2017 Hypertension complicating diabetes 07/09/2012 Overview (10/02/2016): Hypertension Type 2 diabetes mellitus wit h kidney complication, with long-term current use of insulin 07/09/2012 Overview (03/13/2019): Requested referral to Dr. Linda 03/19/2019 after hospitalization, discussed an office visit and she declined a referral Diabetes type 2, controlled Assessment & Plan (08/10/2019 11:00 AM SCRUBBING MACHINE OPERATOR): Patient with improvement in HgbA1C from 10.4 to 8.1. She is currently taking trulicity, metformin and NPH. She has been decreasing her NPH dose to 30 units BID as she reports symptomatic low blood sugars. She however, did not bring her monitor or log with her to her visit today. She reports fasting sugars are remaining below 120. Discussed with patient that that is the goal and if she is having elevated sugars we can begin increasing her NPH again by 5 units weekly as she was supposed to be on 60 units BID per our records. She is to follow up in 3 months at which time we will do a repeat HgbA1C. She was instructed that she must bring her glucometer and blood sugar log with her to her next visit. Severe obstructive sleep apnea 07/09/2012 Overview (03/12/2019): Intolerant to the mask for the BiPAP declined care for this problem On BiPAP followed by Dr. Villavicencio, then Dr. Bardales initial 2011 sleep studyIMPRESSION The above polysomnogram documents evidence of 1. Extremely poor sleep efficiency. 2. Poor tolerance to positive pressure therapy. 3. No pressure was found to be optimal. Clinical correlation is recommended AXIS A: Obstructive sleep apnea syndrome, 327.23. AXIS B: Polysomnography, 60700. Ischemic heart disease due t o coronary artery obstruction ([facility]) 06/17/2012 Overview (04/24/2018): Images from the original note were not included. Coronary stent March [address] Maier 04/24/[address] Maier NSTEMI during hospitalization for 2nd pulmonary embolism August 2017. Morbid obesity with BMI of 50.0-59.9, adult 08/28 Overview (10/02/2016): Morbid obesity Insomnia 09/16/2011 Overview (10/03/2016): Insomnia Resolved Problems Problem Noted Date Diagnosed Date Resolved Date Gouty arthritis 12/01/2018 03/12/2019 NSTEMI (non-ST elevated myoc ardial infarction) (CMS/HCC) 09/07/2017 09/07/2017 Acute saddle pulmonary embol ism with acute cor pulmonale 09/07/2017 09/07/2017 History of inferior vena cav al filter placement 04/25/2017 04/28/2017 History of pulmonary embolism 02/27/2017 04/28/2017 Overview (02/27/2017): Treated for 6 months with warfarin after endometrial cancer surgery postoperative Pe. 03/2014 through 09/2014 Encounters Date Type Department Care Team Description 07/19/2024 9:11 PM SCRUBBING MACHINE OPERATOR - 07/19/2024 11:59 PM SCRUBBING MACHINE OPERATOR Hospital Encounter [facility] Emergency, Room R Discharge Disposition: Discharge to home or self care from Last 3 Months Immunizations Immunization Administration Dates Next Due Influenza, Quadrivalent, Rec ombinant, Egg Free, Preservative Free, Intramuscular 05/12/2023 Influenza, Quadrivalent, Spl it, Intramuscular 07/01/2016 Influenza, Quadrivalent, Spl it, Preservative Free, Intramuscular 03/23/2020,04/21/2018 Influenza, Trivalent, High D ose, Split, Preservative Free, Intramuscular 05/25/2019,04/19/2017,07/01/2016,04/05 Influenza, Trivalent, IM (MDV) 04/26/2015,2008 Influenza, Trivalent, Preser vative Free, Intramuscular 04/21/2014 Influenza, Trivalent, Recomb inant, Egg Free, Preservative Free, Antibiotic Free, IM (FLUBLOK) 05/17/2024 Pneumococcal Conjugate PCV 13 03/17/2015 Pneumococcal Polysaccharide PPV23 03/07/2014 RSV Vaccine, Pref, Recombina nt, Subunit, Adjuvanted, PF, IM (Arexvy) 08/14/2023 Td, adsorbed 09/23/2008 Tdap 06/24/2011 ZOSTER Recombinant 03/23/2024,08/14/2023 Surgical History Surgery Date Site/Laterality Comments KNEE ARTHROPLASTY 06/30/1997 - 06/29/1998 knee replacement OTHER SURGICAL HISTORY 06/30/2005 - 06/29/2006 Lap Band surg. MYRINGOTOMY W/TYMPANOSTOMY TUBE INSERTION 06/30/2008 - 06/29/2009 myringotomy OTHER SURGICAL HISTORY 06/30/1999 - 06/29/2000 ganglion cyst exc. lt. middle finger OTHER SURGICAL HISTORY 06/30/2000 - 06/29/2001 ganglion cysts exc. rt. finger OTHER SURGICAL HISTORY 06/30/2003 - 06/29/2004 nerve release rt. wrist OTHER SURGICAL HISTORY 06/30/1997 - 06/29/1998 nerve release top lt. foot OTHER SURGICAL HISTORY 06/30/1996 - 06/29/1997 surg. / bone spur lt. foot TONSILLECTOMY 06/30/1958 - 06/29/1959 Tonsillectomy OTHER SURGICAL HISTORY 06/30/1998 - 06/29/1999 bunionectomy lt. foot KNEE ARTHROPLASTY 06/30/2003 - 06/29/2004 Knee replacement KNEE ARTHROPLASTY Knee replacement OTHER SURGICAL HISTORY 06/30/2004 - 06/29/2005 End stage arthropathy right knee: Right total knee replacement (non-cemented) OTHER SURGICAL HISTORY 06/30/2003 - 06/29/2004 Septic right knee: Right knee arthroscopic debridement/obtainment of cultures/establishment of bi-directional antibiotic irrigation OTHER SURGICAL HISTORY 06/30/2003 - 06/29/2004 Torn right medial meniscus/progressive medial compartment arthropathy: Right knee arthroscopy with medial meniscectomy/medial femoral chondroplasty OTHER SURGICAL HISTORY Tonsillectomy 1958 OTHER SURGICAL HISTORY Finger surgery 1994 OTHER SURGICAL HISTORY Ganglion cyst surgery 1993 OTHER SURGICAL HISTORY Foot surgery 1995 OTHER SURGICAL HISTORY bunion surgery 1998 OTHER SURGICAL HISTORY Knee replacement 1997 (left) OTHER SURGICAL HISTORY Coronary artery stent February 2002 OTHER SURGICAL HISTORY Obesity: Laparoscopic lap band procedure BREAST BIOPSY 06/30/2008 - 06/29/2009 (-) doctor Collins Pleitez CORONARY ANGIOPLASTY WITH STENT PLACEMENT 06/30/2001 - 06/29/2002 percutaneous transluminal balloon angioplasty with insertion of stent into coronary artery HYSTERECTOMY 06/30/2014 - 06/29/2015 [facility], staging - IA G1 uterine adenocarcinoma. Dr. Alva. ESOPHAGOSCOPY / EGD 09/24/2017 GI bleed with gastric ulcer with visible vessel, bleeding developed after starting Eliquis for PE BREAST SURGERY 12/28/2017 - 01/27/2018 Left BENIGN GROWTH REMOVED CORONARY ANGIOPLASTY WITH STENT PLACEMENT 04/23/2018 Medical History Medical History Date Comments Hypertension Hypertension Cardiovascular disease Coronary artery disease Gastroesophageal reflux disease GERD Diabetes mellitus (HCC) Diabetes Hyperlipidemia Hyperlipidemia Hx Other Medical End stage arthr opathy right knee Hx Other Medical Septic right kn ee Hx Other Medical Torn right medi al meniscus/progressive medial comp Hx Other Medical Obesity; Commen ts: RED 05/20/2014 - STELLA (obstructive sleep apnea) ASHD (arteriosclerotic heart disease) PE (pulmonary thromboembolis m) ([facility]) ([facility]) 03/2014 Uterine cancer ([facility]) ([facility]) Dental disease PUD (peptic ulcer disease) 2 para 2 NSTEMI (non-ST elevated myoc ardial infarction) ([facility]) ([facility]) 09/07/2017 Acute saddle pulmonary embol ism with acute cor pulmonale ([facility]) 09/07/2017 Family History Medical History Relation Name Comments Diabetes Brother 2 Diabetes mellit us; Diabetes Father Diabetes mellit us; Hypertension Father Hypertension; / Hypertension; Stroke Father Stroke; /Stroke ; Cause of : Stroke Heart failure Mother Congestive hea rt failure; Cause of : Congestive heart failure Hypertension Mother Hypertension; / Hypertension; Migraines Mother Migraine; Coronary artery disease Other 1 Fami ly history of Coronary artery disease; Diabetes Other 2 Family history of Diabetes mellitus; Hypertension Other 3 Family history of Hypertension; Other Other 4 No family histo ry of ovarian or uterine cancer; Relation Name Status Comments Brother 1 Alive Brother 2 Father Alive Mother Alive Other 1 Other 2 Other 3 Other 4 Social History Tobacco Use Types Packs/Day Years Used Date Smoking Tobacco: Never Smokeless Tobacco: Never Alcohol Use Standard Drinks/Week Comments No 0 (1 standard drink = 0.6 oz pur e alcohol) PHQ-2 Answer Date Recorded PHQ-2 Score 0 02/18/2019 Comments No Sex and Gender Information Value Date Recorded Sex Assigned at Not on file Legal Sex Female 11:50 PM SCRUBBING MACHINE OPERATOR Gender Identity Not on file Sexual Orientation Not on file Occupation Industry Job Start Date Job End Date Retired Not on file Not on file Not on file Obstetrics History Para Term AB IAB SAB Ectopic Multiple Livin g Live Births 2 2 2 0 0 2 Date Outcome GA Total Labor Labor/2nd/3rd Weight Sex Type Anes PTL [place] A1 A5 Name Clin Term Term Last Filed Vital Signs Vital Sign Reading Time Taken Comments Blood Pressure 110/60 08/10/2019 9:44 AM SCRUBBING MACHINE OPERATOR Pulse 68 08/10/2019 9:44 AM SCRUBBING MACHINE OPERATOR Temperature 36.1 C (97 F) 05/25/2019 7:56 AM SCRUBBING MACHINE OPERATOR Respiratory Rate 12 08/10/2019 9:44 AM SCRUBBING MACHINE OPERATOR Oxygen Saturation 97% 08/10/2019 9:44 AM SCRUBBING MACHINE OPERATOR Inhaled Oxygen Concentration - - Weight 113.4 kg (250 lb) 08/10/2019 9:44 AM SCRUBBING MACHINE OPERATOR Height 157.5 cm (5' 2 ) 01/26/2019 9:45 AM CDT Body Mass Index 45.73 01/26/2019 9:45 AM CDT Plan of Treatment Health Maintenance Due Date Last Done Comments Colon Cancer Screening-Colonoscopy 1950 Dilated Eye Exam 1950 Hepatitis B Screening 1967 Lipid Panel 01/06/2019 01/06/2018, 07/01, 01/26/2016, Additional history exists Depression Screening 05/01/2019 05/01/2018 Fall Risk Assessment 05/01/2019 05/01/2018 Well Visit 65+ 10/06/2019 10/05/2018, 07/2017, 09/15/2017, Additional history exists Foot Exam 01/27/2020 01/26/2019 Osteoporosis Screening-Bone Density Scan 04/30/2020 04/30/2018 Hemoglobin A1C 05/25/2020 11/23/2019, 01/2020, 05/03/2019, Additional history exists Albumin Creatinine Ratio, Urine 08/07/2020 08/07/2019, 07/27/2018, 01/19/2016 eGFR 08/07/2020 08/07/2019, 09/2018, 02/18/2019, Additional history exists DTaP/Tdap/Td Vaccine (2 - Td or Tdap) 06/24/2021 06/24/2011, 09/23/2008 Covid-19 Vaccine (3 - 2023-2 5 season) 2024 10/25/2020, 09/26/2020 Pneumococcal vaccine 65+ Completed 03/17/2015, 01/2014 Hepatitis C Screening Completed 09/05/2017 Breast Cancer Screening-Mammogram Discontinued 018 Zoster Vaccine Completed 03/23/2024, 08/14/2023 Influenza Vaccine Completed 05/17/2024, , 03/23/2020, Additional history exists Procedures Procedure Name Priority Date/Time Associated Diagnosis Comments HEMOGLOBIN A1C Routine 11/23/2019 9:21 AM CDT Type 2 diabetes mellitus with stage 4 chronic kidney disease, with long-term current use of insulin (CMS/HCC) COMPREHENSIVE METABOLIC PANEL Routine 08/07/2019 9:31 AM SCRUBBING MACHINE OPERATOR Type 2 diabetes mellitus with stage 4 chronic kidney disease, with long-term current use of insulin (CMS/HCC) Hypertension complicating diabetes (CMS/HCC) ALBUMIN CREATININE RATIO, URINE Routine 08/07/2019 9:31 AM SCRUBBING MACHINE OPERATOR Type 2 diabetes mellitus with stage 4 chronic kidney disease, with long-term current use of insulin (CMS/HCC) Hypertension complicating diabetes (CMS/HCC) SCREENING MAMMOGRAM 2D BILATERAL Schedule Routine, Read Routine (OP Routine) 10/27/2017 10:50 AM CDT Encounter for screening mammogram for malignant neoplasm of breast HEPATITIS C ANTIBODY Routine 09/05/2017 1:37 PM SCRUBBING MACHINE OPERATOR SERUM LIPID PANEL Routine 07/24/2016 9:0 5 AM SCRUBBING MACHINE OPERATOR from Last 3 Months or Most Recently Relevant to Health Maintenance Results * (ABNORMAL) Hemoglobin A1c (11/23/2019 9:21 AM CDT) Hgb A1C 8.4(H) <5.7 % of total Hgb [facility] Comment: For someone without known diabetes, a hemoglobin A1c value of 6.5% or greater indicates that they may have diabetes and this should be confirmed with a follow-up test. For someone with known diabetes, a value <7% indicates that their diabetes is well controlled and a value greater than or equal to 7% indicates suboptimal control. A1c targets should be individualized based on duration of diabetes, age, comorbid conditions, and other considerations. Currently, no consensus exists regarding use of hemoglobin A1c for diagnosis of diabetes for children. Blood specimen (specimen) 11/23/2019 9:21 AM CDT 11/23/2019 9:23 AM CDT Valerie Grimaldo MD LAB BLOOD ORDERABLES Final Result Performing Organization Address [facility] [employer] Phone Number ASIYA Garzaa [address] [place] [address] * (ABNORMAL) Albumin Creatinine Ratio, Urine (08/07/2019 9:31 AM SCRUBBING MACHINE OPERATOR) Creatinine, ur 142 20 - 275 mg/dL [facility] - [place] Microalbumin, ur 17.3 See Note: mg/dL [facility] [place] Comment: Reference Range: Reference Range Not established Microalbumin/creat ratio 122(H) <30 mcg/mg creat [facility] [place] Comment: The ADA defines abnormalities in albumin excretion as follows: Category Result (mcg/mg creatinine) Normal <30 Microalbuminuria 30-299 Clinical albuminuria > OR = 300 The ADA recommends that at least two of three specimens collected within a 3-6 month period be abnormal before considering a patient to be within a diagnostic category. Urine 08/07/2019 9:31 AM SCRUBBING MACHINE OPERATOR 08/07/2019 9:31 AM SCRUBBING MACHINE OPERATOR Narrative Resulting Agency Comment Performing Organization Information: Site ID: [place] Name: [facility] Address: [address] [place] [address] Director: Cody Castro D.O., MPH Valerie Grimaldo MD LAB URINE ORDERABLES Final Result Performing Organization Address [facility] de Phone Number ASIYA [facility] [place] * (ABNORMAL) Comprehensive metabolic panel (08/07/2019 9:31 AM SCRUBBING MACHINE OPERATOR) Glucose 148(H) 65 - 99 mg/dL [facility] - [place] Comment: Fasting reference interval For someone without known diabetes, a glucose value >125 mg/dL indicates that they may have diabetes and this should be confirmed with a follow-up test. BUN 29(H) 7 - 25 mg/dL [facility] [place] Creatinine 1.72(H) 0.60 - 0.93 mg/dL [facility] [place] Comment: For patients >49 years of age, the reference limit for Creatinine is approximately 13% higher for people identified as -[place]. eGFR NON-AFR. [place] 30(L) > OR = 60 mL/min/1. 73m2 [facility] [place] EGFR 34(L) > OR = 60 mL/min/1. 73m2 [facility] [place] BUN/creat ratio 17 6 - 22 (calc) [facility] [place] Sodium 141 135 - 146 mmol/L [facility] [place] Potassium, pl 4.3 3.5 - 5.3 mmol/L [facility] [place] Chloride 102 98 - 110 mmol/L [facility] [place] CO2 26 20 - 32 mmol/L [facility] [place] Calcium 9.7 8.6 - 10.4 mg/dL [facility] [place] Protein, sr 7.1 6.1 - 8.1 g/dL [facility] [place] Albumin 4.1 3.6 - 5.1 g/dL [facility] [place] GLOBULIN 3.0 1.9 - 3.7 g/dL (calc) [facility] [place] Alb/glob ratio 1.4 1.0 - 2.5 (calc) [facility] [place] Bilirubin, total 0.6 0.2 - 1.2 mg/dL [facility] [place] Alk phos 123 37 - 153 U/L [facility] [place] AST 10 10 - 35 U/L [facility] [place] ALT (SGPT) 8 6 - 29 U/L [facility] [place] Blood specimen (specimen) 08/07/2019 9:31 AM SCRUBBING MACHINE OPERATOR 08/07/2019 9:31 AM SCRUBBING MACHINE OPERATOR Narrative Resulting Agency Comment Performing Organization Information: Site ID: [id number] Name: Asiya Knight Address: [address] [place] [address] [place] [id number] Director: Cody Castro D.O., MPH us Valerie Grimaldo MD LAB BLOOD ORDERABLES Final Result [facility] [place] * Screening Mammogram 2D Bilateral (10/27/2017 10:50 AM CDT) Anatomical Region Laterality Modality Breast Bilateral Mammography Impressions 10/28/2017 2:28 PM CDT Finding in the left breast requires additional evaluation. Magnification mammography is recommended. Spot compression is recommended. Additional projections are recommended. The patient will be recalled for additional views of this area and a supplemental report generated when these are obtained. An ultrasound exam is recommended. 1. New density of the deep left breast. 2. There may be suspicious microcalcifications of the left upper outer breast. BI-RADS Category 0: Incomplete: Need Additional Imaging Evaluation BI-RADS Category 1: Negative Narrative 10/28/2017 2:28 PM CDT Screening. BILATERAL DIGITAL MAMMOGRAPHY The present examination has been compared to prior imaging studies dated 01/03/2016 and 10/19/2014. Mammogram Findings CAD (computer-aided detection) software was utilized. There are scattered fibroglandular densities that could obscure a lesion on mammography. Standard views of the breasts as well as XCCL views were obtained. There is a new density of the deep left central breast. There are suspicious microcalcifications of the left upper outer breast. Additional compression views of the left breast and a true lateral image of the left breast is requested. Magnification views of the calcifications is also requested. Ultrasound is also requested. In the right breast, no masses, significant calcifications or other abnormalities are seen. Wen Nelson MD IMG MAMMO PROCEDURES Final Result * Hepatitis C antibody (09/05/2017 1:37 PM SCRUBBING MACHINE OPERATOR) Pathologist [facility] Hep C Ab Negative Negative [facility] Blood specimen (specimen) 09/05/2017 1:37 PM SCRUBBING MACHINE OPERATOR 09/05/2017 8:35 PM SCRUBBING MACHINE OPERATOR Narrative [facility] - 09/05/2017 9:21 PM SCRUBBING MACHINE OPERATOR Valerie Grimaldo MD LAB MICROBIOLOGY - GENERAL ORDERABLES Edited Result - Final [facility] [address] Department [place] [address] * (ABNORMAL) Serum lipid panel (07/24/2016 9:05 AM SCRUBBING MACHINE OPERATOR) Cholesterol 222(H) 100 - 200 mg/dl CDR HISTORICAL RESULTS Comment: Interpretive Data Desirable: <200 mg/dL Borderline high: 200-239 mg/dL High: >240 mg/dL Current interpretive data was last revised on 2016. Triglycerides 351(H) 10 - 150 mg/dl CDR HISTORICAL RESULTS Comment: Interpretive Data Desirable: < 150 mg/dL Borderline High: 150 - 199 mg/dL High: 200 - 499 mg/dL Very High: > or = 499 mg/dL Current interpretive data was last revised on 2016. HDL 33(L) 40 - 59 mg/dl CDR HISTORICAL RESULTS Comment: Interpretive Data Less than 40 mg/dL - Low; A major risk factor for heart disease. Greater than or equal to 60 mg/dL - High; Considered protective of heart disease. Current interpretive data was last revised on 2016. LDL 119 60 - 129 mg/dl CDR HISTORICAL RESULTS Comment: Interpretive Data Optimal: < 100 mg/dL Near Optimal: 100 - 129 mg/dL Borderline High: 130 - 159 mg/dL High: > 160 mg/dL Current interpretive data was last revised on 2016. Non-HDL cholesterol, calculated 189 mg/dl CDR HISTORICAL RESULTS Comment: Interpretive Data When triglycerides are >200 mg/dL, non-HDL C is a secondary target of therapy, with a goal 30 mg/dL higher than the identified LDL-C goal. Current interpretive data was last revised 2016. 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 Valerie Grimaldo MD LAB BLOOD ORDERABLES Final Result Performing Organization Address City/State/RUST Co de Phone Number CDR HISTORICAL RESULTS from Last 3 Months or Most Recently Relevant to Health Maintenance Insurance [facility]CR HMO REF [facility]F MEDICARE [facility] ADV [facility] H[facility] REF Advance Directives For more information, please contact: [phone] Documents on File Type Date Recorded Patient Knuckler Expl anation ADVANCE DIRECTIVE 05/01/2018 2:42 PM POWER OF HAND DECORATOR ADVANCE DIRECTIVE 05/01/2018 2:42 PM Care Teams 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 Gown 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 Relationship Specialty Start Date End Date Julian Encarnacion MD [address] [facility] [address] [place] [address] PCP - General Family Medicine 11/22/20 [place] [address] [facility] [address] [place] [address] Pulmonary Disease 02/27/17 Wen Nelson MD [address] [place] [address] Obstetrics and Gynecology 02/27/17 José Miguel Alva MD [address] [facility] [address] [place] [address] Gynecologic Oncology 02/27/17 Drew Martínez MD [address] [place] [address] Orthopedic Surgery 02/27/17 Lopez Nunez DO [address] [place] [address] Consulting Physician Gastroenterology 04/25/17 Autumn Chapman OD [address] [place] [address] Optometry 04/28/17 [place] [address] [facility] [address] [place] [address] Consulting Physician Cardiology 09/07/17 Tess Brennan MD [facility] [address] [address] Referring Physician Gastroenterology 09/25/17 Tee Moura MD [address] [address] Referring Physician Surgery 11/29/17 Michel Linda MD [address] [address] Referring Physician General Surgery 03/11/19 Verean Crespo MD [address] [address] Consulting Physician Nephrology 03/13/19
--- OUTSIDE RECORDS SUMMARY | 2024-08-25 07:25 | XMS_ITS | Clinical Summary ---
Author Organization [facility] Address [address] [place], [address] [address] Phone Care Team Providers Care Manager Revenue Name Role Phone Travis Torrez MD Primary Care Provider [phone] Carolee Tay APRN, CAREER SPECIALIST Unavailable Allergies Active Allergy Reactions Criticality Noted Date Comments Enoxaparin Other (see Comments) 04/17/2018 hemorrhage after taking Metformin Diarrhea Low Reaction: Diarrhea, Can take extended release Metformin Niacin Rash 08/31/2017 Penicillins Itching 08/31/2017 No reaction to cephalexin for 5 days on 02/26/19 Medications Insulin Pen Needle 29G X 12.7MM Misc 1 Device by Does not apply route 3 times daily. 100 Each 6 0 Active Blood Glucose Monitoring Suppl (D-Care Glucometer) w/Device Kit 1 Device by Does not apply route 2 times daily. 1 Kit 1 Active metFORMIN (GLUCOPHAGE-XR) 500 MG TABLET SR 24 HR TAKE 1 TABLET BY MOUTH 3 TIMES DAILY. THIS RX IS FOR METFORMIN SR. 90 Tablet 3 1 Active Additional Information Patient taking differently: Oral 3 TIMES DAILY, Reported on 08/19/2024 acetaminophen-c odeine (TYLENOL #3) 300-30 MG TabletIndicatio ns:Arthralgia, unspecified joint TAKE 1 TABLET BY MOUTH 2 TIMES DAILY NEEDED FOR MODERATE OR MORE SEVERE PAIN. 30 Tablet 1 Active Lancets Misc Use as directed 500 Lancet 2 2 Active Glucose Blood (OneTouch Ultra) Strip USE 1 STRIP TO TEST BLOOD SUGAR 1-2 TIMES A DAY 100 Strip 3 2 Active aspirin 81 MG Chewable Tablet Take 1 Tablet by mouth daily. 30 Tablet 3 Active metoprolol Succinate (TOPROL-XL) 50 MG TABLET SR 24 HR Take 1 Tablet by mouth daily. 90 Tablet 3 Active ondansetron (ZOFRAN-ODT) 4 MG TABLET DISPERSIBLE Take 1 Tablet by mouth every 6 hours as needed for Nausea - 1st line. 10 Tablet 3 Active doxycycline hyclate (VIBRA-TABS) 100 MG Tablet Take 100 mg by mouth daily. Has 2 more doses 5 Active gabapentin (NEURONTIN) 100 MG Capsule Take 100 mg by mouth nightly. 5 Active Soliqua 100-33 UNT-MCG/ML Solution Pen-injector 35 Units by Subcutaneous route daily. 5 Active irbesartan (AVAPRO) 300 MG Tablet Take 300 mg by mouth daily. 4 Active omeprazole (PriLOSEC) 40 MG CAPSULE DELAYED RELEASE Take 40 mg by mouth daily. 4 Active potassium chloride CR (KLORCON) 10 MEQ Tablet Controlled Release Take 1 Tablet by mouth daily. 5 Active traZODone (DESYREL) 50 MG Tablet Take 50 mg by mouth nightly as needed. 4 Active furosemide (LASIX) 20 MG Tablet Take 20 mg by mouth every morning. 4 Active rosuvastatin (CRESTOR) 10 MG Tablet Take 2 Tablets by mouth nightly for 90 days. 30 Tablet 5 10/19/19 25 Active isosorbide mononitrate (IMDUR) 30 MG TABLET SR 24 HR Take 1 Tablet by mouth every morning for 90 days. 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 05/04/2020 Acute renal failure superimposed on chronic kidn ey disease 02/24/2019 Urinary retention 02/24/2019 NSTEMI (non-ST elevated myocardial infarction) 1 Pneumonia 04/19/2018 NSTEMI (non-ST elevated myocardial infarction) 1 Sepsis, unspecified organism 04/19/2018 Hematoma 01/20/2018 History of pulmonary embolism 09/23/2017 Acute blood loss anemia 09/23/2017 Pulmonary hypertension 09/01/2017 Chronic diastolic heart failure 09/01/2017 Elevated troponin 08/31/2017 Acute respiratory failure with hypoxia 8 Leukocytosis 08/31/2017 Lactic acidosis 08/31/2017 Suspected CHF (congestive heart failure) 018 Hypomagnesemia 08/31/2017 Type 2 diabetes mellitus wit h hyperglycemia, without long-term current use of insulin 08/31/2017 Coronary artery disease 08/31/2017 Morbid obesity with BMI of 45.0-49.9, adult 09/2017 Diabetes mellitus 06/30/1997 Resolved Problems Problem Noted Date Diagnosed Date Resolved Date Acute kidney injury superimp osed on chronic kidney disease 07/20/2024 07/20/2024 Breast mass, left 11/14/2017 01/13/2018 Acute saddle pulmonary embolism 08/31/2017 12/20/2020 Chest pain 08/31/2017 07/20/2024 Encounters Date Type Department Care Team Description 08/19/2024 3:00 PM [facility] [employer] [facility] [address] [place] [address] Carolee Tay, SUPERVISOR PRESS ROOM, CAREER SPECIALIST Coronary artery disease with angina pectoris, unspecified vessel or lesion type, unspecified whether craig or transplanted heart (HCC) (Primary Dx); Hyperlipidemia, unspecified hyperlipidemia type; Chronic diastolic heart failure (HCC); Hypertension, unspecified type; Type 2 diabetes mellitus with hyperglycemia, without long-term current use of insulin ([facility]) Discharge Disposition: Discharged to home or Selfcare 08/19/2024 Travel 07/22/2024 [facility] [address] [place] [address] Tabitha Strauss RN 07/19/2024 9:33 PM [employer] [employer] [facility] - 07/20/2024 5:50 PM [facility] [employer] [facility] Emergency [facility] [address] [address] Oswaldo Sue MD Patel, Satyen V, MD Chest pain Discharge Disposition: Discharged to home or Selfcare 07/19/2024 Travel from Last 3 Months Immunizations Immunization Administration Dates Next Due Covid-19, Mrna, Lnp-s, PF, 1 00 mcg/0.5 mL Dose (Moderna) 10/25/2020,09/26/2020 Influenza Seasonal, Intrader mal, Preservative Free 04/26/2015,04/21/2014,04/05/2009 Influenza Vaccine 05/25/2019, 7,07/01/2016,2014,04/21/2014 Influenza Vaccine, Quadrivalent, PF 03/23/2020,1 Influenza, Injectable, Quadrivalent 07/01/2016 Influenza, Intradermal, Quad rivalent, Preservative Free 04/21/2018 Influenza, high-dose, trivalent, PF 11/2 11/2018,04/19/2017,07/01/2016,2014 Pneumococcal Vaccine - 13 Valent 03/17/2015 Pneumococcal Vaccine Adult - 23 Valent 03/07/2014 TD VACCINE 09/23/2008 TDAP Vaccine 06/24/2011 Td, Adsorbed, Preservative F ree, Adult Use, Lf Unspecified 09/23/2008 Family History Medical History Relation Name Comments Diabetes Brother Heart Disease Brother Diabetes Father Heart Disease Father Alzheimer's Disease Mother Heart Disease Mother Other-comment Mother afib Relation Name Status Comments Brother Father Mother Social History Tobacco Use Types Packs/Day Years Used Date Smoking Tobacco: Never Smokeless Tobacco: Never Tobacco Cessation:Counseling Given: Not Answered Alcohol Use Standard Drinks/Week Comments No 0 (1 standard drink = 0.6 oz pur e alcohol) [facility] Utilities Answer Date Recorded In the past 12 months has th e electric, gas, oil, or water company threatened to shut off services in your home? No 07/20/2024 Social Connection and Isolation Panel [NHANES] A nswer Date Recorded In a typical week, how many times do you talk on the phone with family, friends, or neighbors? Patient declined 07/20/2024 How often do you get togethe r with friends or relatives? Patient declined 07/20/2024 How often do you attend baptism or taoism serv ices? Patient declined 07/20/2024 Do you belong to any clubs o r organizations such as baptism groups, unions, fraternal or athletic groups, or school groups? Patient declined 07/20/2024 How often do you attend meet ings of the clubs or organizations you belong to? Patient declined 07/20/2024 Are you , , di vorced, , never , or living with a partner? 07/20/2024 AUDIT-C Answer Date Recorded Q1: How often do you have a drink containing alcohol? Never 07/20/2024 Q2: How many drinks containi ng alcohol do you have on a typical day when you are drinking? Patient does not drink Q3: How often do you have si x or more drinks on one occasion? Never 07/20/2024 Overall Financial Resource Strain (CARDIA) Answe r Date Recorded How hard is it for you to pa y for the very basics like food, housing, medical care, and heating? Not very hard 07/20/2024 PHQ-2 Answer Date Recorded Total Score - Questions 1-9 0 03/31 [facility] - Occupational Stress Questionnaire Answer Date Recorded Do you feel stress - tense, restless, nervous, or anxious, or unable to sleep at night because your mind is troubled all the time - these days? Not at all 07/20/2024 Exercise Vital Sign Answer Date Recorde d On average, how many days pe r week do you engage in moderate to strenuous exercise (like a brisk walk)? Patient declined On average, how many minutes do you engage in exercise at this level? Patient declined 07/20/2024 Hunger Vital Sign Answer Date Recorded Within the past 12 months, y ou worried that your food would run out before you got the money to buy more. Never true 07/20/19 25 Within the past 12 months, t he food you bought just didn't last and you didn't have money to get more. Never true 07/20/2024 PRAPARE - Transportation Answer Date Re corded In the past 12 months, has l ack of transportation kept you from medical appointments or from getting medications? No 07/01 In the past 12 months, has l ack of transportation kept you from meetings, work, or from getting things needed for daily living? No 07/20/2024 Housing Stability Vital Sign Answer Jose Juan e Recorded In the last 12 months, was t here a time when you were not able to pay the mortgage or rent on time? No 07/20/2024 In the past 12 months, how m any times have you moved where you were living? 0 07/20/2024 At any time in the past 12 m onths, were you homeless or living in a fdc (including now)? No 07/20/2024 Comments No Sex and Gender Information Value Date Recorded Sex Assigned at Not on file Legal Sex Female 7:37 PM CDT Gender Identity Not on file Sexual Orientation Not on file Last Filed Vital Signs Vital Sign Reading Time Taken Comments Blood Pressure 126/62 08/19/2024 3:01 PM [employer] Pulse 81 08/19/2024 3:01 PM [employer] Temperature 36.3 C (97.3 F) 08/19/2024 3:01 PM [employer] Respiratory Rate 16 08/19/2024 3:01 PM [employer] Oxygen Saturation 97% 08/19/2024 3:01 PM [employer] Inhaled Oxygen Concentration - - Weight 105.2 kg (232 lb) 08/19/2024 3:01 PM [employer] Height 157.5 cm (5' 2 ) 08/19/2024 3:01 PM [employer] Body Mass Index 42.43 08/19/2024 3:01 PM [employer] Plan of Treatment Upcoming Encounters Date Type Department Care Team (Late st Contact Info) Description 08/15/2025 10:00 AM [employer] Office Visit [facility] - [place] [address] [place] [address] Carolee Tay APRN, CAREER SPECIALIST [address] [place] [phone] Health Maintenance Due Date Last Done Comments Diabetes: Eye Exam 1950 Diabetes: Foot Exam 1950 Colonoscopy 1994 Cologuard 1999 Colorectal Cancer Screening 05/01/2020 Immunochemical Fecal Occult Blood 04/30/2021 04/30/2020, 09/23/2017 Td Immunization Every 10 Years (Adults With 1 Tdap) 06/24/2021 06/24/2011, 09/23/2008 SARS-COV-2 Immunization ( season) 2024 10/25/2020, 09/26/2020 DEXA Bone Density 08/06/2024 08/06/2022, 04/30/2018 Diabetes: Hemoglobin A1c 01/17/2025 025, 04/29/2023, 10/18/2020, Additional history exists Diabetes: Nephropathy Screening 07/19/2025 07/19/2024, 04/29/2023, 10/18/2020, Additional history exists DTaP/Tdap/Td Immunization Discontinued 06/24/2011, Pneumococcal Immunization (50+ years) Completed 03/17/2015, 03/07/2014 Pneumococcal Immunization Combined Discontinued 03/17/2015, 03/07/2014 Hepatitis C Virus (HCV) Screening Completed 02/25/2019 Mammogram Discontinued 08/06/2022, 03/01, 03/08/2019, Additional history exists Respiratory Syncytial Virus (RSV) Immunization (Adult) Completed 08/14/2023 Zoster Immunization Completed 03/23/2024, Influenza Immunization Completed , 05/12/2023, 03/23/2020, Additional history exists Hepatitis B Immunization Aged Out No longer eligible based on patient's age to complete this topic Meningococcal Immunization (ACWY) Aged Out No longer eligible based on patient's age to complete this topic Rotavirus Immunization Aged Out No lo nger eligible based on patient's age to complete this topic Medical Devices Implanted Type Area Groundman/Lineman Device Identifier Shelf Expiration Date Model / Serial / Lot Stent Coronary Leta Xience Everolimus Eluting [id number] - [id number] Implanted:Qty: 1 on 04/23/2018 by Joan Avalos MD at [facility] IMPLANT N/A: Coronary [employer] 02/17/2019 [id number] Stent Coronary Leta Xience Everolimus Eluting [id number] - [id number] Implanted:Qty: 1 on 04/23/2018 by Joan Avalos MD at [facility] IMPLANT N/A: Coronary [employer] 01/15/2019 [id number] Procedures Procedure Name Priority Date/Time Associated Diagnosis Comments POCT GLUCOSE Routine 07/20/2024 2:00 PM [employer] ADULT TRANS THORACIC ECHO 2D COMPLT W CONT Routine 07/20/2024 1:06 PM [employer] NM CARD MULTI SPECT WITH WALL MOTION AND EJECTION FRACTION Routine 07/20/2024 12:19 PM [employer] ADULT CV STRESS PHARMACOLOGIC W NUC MED Routine 07/20/2024 12:07 PM [employer] POCT GLUCOSE Routine 07/20/2024 7:41 AM [employer] CBC WITH AUTO DIFFERENTIAL STAT 07/20/2024 5:18 AM [employer] LIPID PANEL Routine 07/20/2024 5:18 AM [employer] B-TYPE NATRIURETIC PEPTIDE (BNP) Routine 07/20/2024 5:18 AM [employer] THYROID STIMULATING HORMONE (TSH) STAT 07/20/2024 5:18 AM [employer] TROPONIN I, HIGH SENSITIVITY (HSTRP) STAT 07/20/2024 5:18 AM [employer] HEMOGLOBIN A1C W/ ESTIMATED GLUCOSE STAT 07/20/2024 5:18 AM [employer] COMPLETE BLOOD COUNT (CBC) WITH DIFF STAT 07/20/2024 5:18 AM [employer] BASIC METABOLIC PANEL W/ CALCIUM TOTAL STAT 07/20/2024 5:18 AM [employer] PROCALCITONIN STAT 07/20/2024 5:18 AM [employer] RSV,SARS-COV-2,INFLUEN ZA A&B BY PCR STAT 07/20/2024 2:06 AM [employer] RHYTHM STRIP 07/20/2024 12:00 AM [employer] RHYTHM STRIP 07/20/2024 12:00 AM [employer] RHYTHM STRIP 07/20/2024 12:00 AM [employer] TROPONIN I, HIGH SENSITIVITY (HSTRP) STAT 07/19/2024 11:52 PM [employer] XR CHEST SINGLE VIEW PORTABLE STAT 07/19/2024 9:53 PM [employer] GOLD TOP TUBE STAT 07/19/2024 9:48 PM [employer] BLUE TOP TUBE STAT 07/19/2024 9:48 PM [employer] CBC WITH AUTO DIFFERENTIAL STAT 07/19/2024 9:48 PM [employer] EXTRA TUBES STAT 07/19/2024 9:48 PM [employer] TROPONIN I, HIGH SENSITIVITY (HSTRP) STAT 07/19/2024 9:48 PM [employer] CMP (COMPREHENSIVE METABOLIC PANEL) STAT 07/19/2024 9:48 PM [employer] COMPLETE BLOOD COUNT (CBC) WITH DIFF STAT 07/19/2024 9:48 PM [employer] EKG 12 LEAD STAT 07/19/2024 9:37 PM [employer] RHYTHM STRIP 07/19/2024 12:00 AM [employer] EKG SCAN 07/19/2024 12:00 AM [employer] DYU SCREENING BILATERAL DIGITAL W CAD W HARLEEN Routine 08/06/2022 3:00 PM [employer] Encounter for screening mammogram for malignant neoplasm of breast Asymptomatic menopausal state DUY BONE DENSITOMETRY AXIAL SKELETON Routine 08/06/2022 2:30 PM [employer] Encounter for screening mammogram for malignant neoplasm of breast Asymptomatic menopausal state STOOL, OCCULT BLOOD, DIAGNOSTIC, VIA GUAIAC STAT 04/30/2020 11:15 AM [employer] HEPATITIS PANEL ACUTE (AHP) Routine 02/25/2019 3:42 AM CDT from Last 3 Months or Most Recently Relevant to Health Maintenance Results * POCT Glucose (07/20/2024 2:00 PM [employer]) Only the most recent of2 resultswithin the time period is included. [facility] GLUCOSE,BEDSIDE POCT 88 70 - 99 mg/dL 07/20/2024 2:13 PM [employer] [facility] Blood 07/20/2024 2:00 PM [employer] 07/20/2024 2:13 PM [employer] us None Provider POINT OF CARE TESTING Final Resu lt [facility] [address] [place] [address] * ADULT TRANS THORACIC ECHO 2D COMPLT W CONT (07/20/2024 1:06 PM [employer]) [facility] AV Peak Grad mmHg 9.86 mmHg RESULTING AGENCY Mean Aortic Valve Gradient (MAVG) 5 mmHg RESULTING AGENCY LV end geovany diam cm 4.1 cm RESULTING AGENCY LV end sys diam cm 2.6 cm RESULTING AGENCY Aortic Root Diam cm 2.8 cm RESULTING AGENCY LA vol index ml/m2 17 ml/m2 RESULTING AGENCY LVOT Peak Austen m/sec 1.1 m/sec RESULTING AGENCY AV Peak Austen m/sec 1.57 m/sec RESULTING AGENCY MV Mean Grad mmHg 2 mmHg RESULTING AGENCY E/A Ratio 0.73 RESULTING AGENCY E/E' 11.7 RESULTING AGENCY AV Area (VTI) cm2 2.23 cm2 RESULTING AGENCY SEPTUM DIASTOLIC CM 1.3 cm RESULTING AGENCY PW DIASTOLIC CM 1.3 cm RESU LTING AGENCY LA VOLUME 35.6 ml RESULTING AGENCY LV EF(estimated)% 63 RESULTING AGENCY Anatomical Region Laterality Modality CARDIO N/A Ultrasound Narrative 07/20/2024 1:34 PM [facility] Transthoracic Echocardiography Report (TTE) Patient name ART De Leon 1950 Patient ID (UPI) [id number] Indications: Chest pain, Hypertension, Congestive heart failure and Coronary artery disease. Study Date07/20/2024 Technical quality: Poor visualization Limitation Reason: Body Habitus - Endomorphic (Overweight) Type of Study: TTE procedure: Adult Trans Thoracic Echo 2D Complete. Priority:RoutineHR: 55 bpmBP: 121/59 mmHg Contrast Medium: Lumason. Amount - 3 ml Conclusions Summary The left ventricle is normal in size. Moderate concentric left ventricular hypertrophy is present. LV function is normal. There are no regional wall motion abnormalities. LV EF of 60-65%. Grade I diastolic dysfunction. Findings Mitral Valve Severe mitral annular calcification is present. There is no evidence of mitral stenosis. There is no significant mitral regurgitation. Aortic Valve The aortic valve is trileaflet with normal leaflet excursion. Thickened aortic valve. There is no evidence of aortic valve stenosis. There is no significant aortic valve insufficiency. Tricuspid Valve The tricuspid valve is normal. There is no evidence of tricuspid stenosis. Trace tricuspid valve regurgitation. Insufficient TR jet to estimate PASP. Pulmonic Valve Not well visualized, no evidence by Doppler interrogation for significant stenosis or regurgitation. Left Atrium The left atrium size is normal. Left Ventricle The left ventricle is normal in size. Moderate concentric left ventricular hypertrophy is present. LV function is normal. There are no regional wall motion abnormalities. LV EF of 60-65%. Grade I diastolic dysfunction. Right Atrium The right atrium size is normal. Right Ventricle Normal right ventricular cavity size and normal systolic function. Pericardial Effusion The pericardium is normal. There is no pericardial effusion visualized. Miscellaneous Aortic root and proximal ascending aorta are normal in size. Atrial septum appears intact. IVC is normal in size and respiratory response. Valves Mitral Valve Peak E-Wave: 0.86 m/s Area (continuity): 1.99 cm^2 Peak A-Wave: 1.18 m/s Mean Velocity: 0.63 m/s Peak Gradient: 2.99 mmHg Mean Gradient: 2 mmHg Deceleration Time: 310 msec Tissue Doppler E' Velocity: 0.05 m/s E/E':11.7 E/A Ratio: 0.73 E/Lat E': 11.7 E/Med E':14.5 Aortic Valve Area (continuity): 2.23 cm^2 Mean Velocity: 1.05 m/s Area (VTI):2.23 cm^2 Mean Gradient: 5 mmHg Peak Velocity: 1.57 m/s AV VTI: 36.5 cm Peak Gradient: 9.86 mmHg Tricuspid Valve Peak E-Wave: 0.53 m/s Peak Gradient: 1.14 mmHg Pulmonic Valve Peak Velocity: 1.18 m/s Mean Velocity: 0.78 m/s Peak Gradient: 5.57 mmHg Mean Gradient: 3 mmHg LVOT Peak Velocity: 1.1 m/s Mean Velocity: 0.73 m/s Peak Gradient: 5 mmHg Mean Gradient: 3 mmHg LVOT Diameter: 2 cm LVOT VTI: 25.9 cm Stroke Volume: 81 ml Stroke Volume Index: 39.71 ml/m^2 Structures Left Ventricle Diastolic Dimension: 4.1 cm Systolic Dimension: 2.6 cm Septum Diastolic: 1.3 cm PW Diastolic: 1.3 cm Systolic Length: 14.3 cm Diastolic Length: 25.1 cm CI: 2.19 l/min*m^2 EF Calculated: 69.06% CO: 4.47 l/min RWT: 0.63 LV EDV: 83.4 ml LV EDV Index: 41 m^2 FS: 36.59 % LV ESV: 25.8 ml LV Length: 7.43 cm LV ESV Index: 13 m^2 LVOT Diameter: 2 cm Right Ventricle RVOT (PLAX) diameter:3.3 cm Tissue Doppler RV S': 10.7 TAPSE: 2.09 cm Left Atrium LA Systolic Pressure: 16.61 mmHg LA Area: 12.9 cm^2 LA Volume: 35.6 ml LA Index: 17ml/m^2 Right Atrium RA Area: 8.76 cm^2 Great Vessels Aorta Ascending Aorta: 2.9 cm Aorta Root:2.8 cm Ascending Aorta Index:1.42 cm/m^2 Contractility Score LV regional wall motion: (0-Not visualized 1-Normal 1'-Hyperkinesis 2-Hypokinesis 3-Akinesis 4-Dyskinesis 5-Aneurysm) Demographics Age 74 Gender Female Race Height 62.01 in. Weight 233.2 lbs. 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 Study Date07/20/2024 Technical quality: Poor visualization Limitation Reason: Body Habitus - Endomorphic (Overweight) Type of Study: TTE procedure: Adult Trans Thoracic Echo 2D Complete. Priority:RoutineHR: 55 bpmBP: 121/59 mmHg Contrast Medium: Lumason. Amount - 3 ml Conclusions Summary The left ventricle is normal in size. Moderate concentric left ventricular hypertrophy is present. LV function is normal. There are no regional wall motion abnormalities. LV EF of 60-65%. Grade I diastolic dysfunction. Findings Mitral Valve Severe mitral annular calcification is present. There is no evidence of mitral stenosis. There is no significant mitral regurgitation. Aortic Valve The aortic valve is trileaflet with normal leaflet excursion. Thickened aortic valve. There is no evidence of aortic valve stenosis. There is no significant aortic valve insufficiency. Tricuspid Valve The tricuspid valve is normal. There is no evidence of tricuspid stenosis. Trace tricuspid valve regurgitation. Insufficient TR jet to estimate PASP. Pulmonic Valve Not well visualized, no evidence by Doppler interrogation for significant stenosis or regurgitation. Left Atrium The left atrium size is normal. Left Ventricle The left ventricle is normal in size. Moderate concentric left ventricular hypertrophy is present. LV function is normal. There are no regional wall motion abnormalities. LV EF of 60-65%. Grade I diastolic dysfunction. Right Atrium The right atrium size is normal. Right Ventricle Normal right ventricular cavity size and normal systolic function. Pericardial Effusion The pericardium is normal. There is no pericardial effusion visualized. Miscellaneous Aortic root and proximal ascending aorta are normal in size. Atrial septum appears intact. IVC is normal in size and respiratory response. Valves Mitral Valve Peak E-Wave: 0.86 m/s Area (continuity): 1.99 cm^2 Peak A-Wave: 1.18 m/s Mean Velocity: 0.63 m/s Peak Gradient: 2.99 mmHg Mean Gradient: 2 mmHg Deceleration Time: 310 msec Tissue Doppler E' Velocity: 0.05 m/s E/E':11.7 E/A Ratio: 0.73 E/Lat E': 11.7 E/Med E':14.5 Aortic Valve Area (continuity): 2.23 cm^2 Mean Velocity: 1.05 m/s Area (VTI):2.23 cm^2 Mean Gradient: 5 mmHg Peak Velocity: 1.57 m/s AV VTI: 36.5 cm Peak Gradient: 9.86 mmHg Tricuspid Valve Peak E-Wave: 0.53 m/s Peak Gradient: 1.14 mmHg Pulmonic Valve Peak Velocity: 1.18 m/s Mean Velocity: 0.78 m/s Peak Gradient: 5.57 mmHg Mean Gradient: 3 mmHg LVOT Peak Velocity: 1.1 m/s Mean Velocity: 0.73 m/s Peak Gradient: 5 mmHg Mean Gradient: 3 mmHg LVOT Diameter: 2 cm LVOT VTI: 25.9 cm Stroke Volume: 81 ml Stroke Volume Index: 39.71 ml/m^2 Structures Left Ventricle Diastolic Dimension: 4.1 cm Systolic Dimension: 2.6 cm Septum Diastolic: 1.3 cm PW Diastolic: 1.3 cm Systolic Length: 14.3 cm Diastolic Length: 25.1 cm CI: 2.19 l/min*m^2 EF Calculated: 69.06% CO: 4.47 l/min RWT: 0.63 LV EDV: 83.4 ml LV EDV Index: 41 m^2 FS: 36.59 % LV ESV: 25.8 ml LV Length: 7.43 cm LV ESV Index: 13 m^2 LVOT Diameter: 2 cm Right Ventricle RVOT (PLAX) diameter:3.3 cm Tissue Doppler RV S': 10.7 TAPSE: 2.09 cm Left Atrium LA Systolic Pressure: 16.61 mmHg LA Area: 12.9 cm^2 LA Volume: 35.6 ml LA Index: 17ml/m^2 Right Atrium RA Area: 8.76 cm^2 Great Vessels Aorta Ascending Aorta: 2.9 cm Aorta Root:2.8 cm Ascending Aorta Index:1.42 cm/m^2 Contractility Score LV regional wall motion: (0-Not visualized 1-Normal 1'-Hyperkinesis 2-Hypokinesis 3-Akinesis 4-Dyskinesis 5-Aneurysm) Demographics Age 74 Gender Female Race Height 62.01 in. Weight 233.2 lbs. 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 [facility] Room 229 Interpreting Delacruz Referring Physician Vijay Physician us Carolee Tay APRN, KMI IMG ECHO ORDER ELOINA Edited Result - Final * NM CARD MULTI SPECT WITH WALL MOTION AND EJECTION FRACTION (07/20/2024 12:19 PM [employer] [employer]) Anatomical Region Laterality Modality CARDIO N/A Nuclear Medicine 07/20/2024 2:13 PM [facility] [employer] [facility] Addenda Addendum by Viviane Martinez MD on 07/20/2024 2:51 PM [employer] [employer] [facility] ADDENDUM REPORT: ADDENDUM: This addendum report supersedes the original report dated 07/20/2024 Correction to voice recognition error in the impression as below: IMPRESSION: Large fixed perfusion defect in the inferior wall consistent with MYOCARDIAL INFARCT. No reversible perfusion defect to suggest myocardial ischemia. Normal left ventricular size and systolic function. END OF ADDENDUM REPORT EXAM DESCRIPTION: AL CARD MULTI SPECT WITH WALL MOTION AND EJECTION FRACTION RADIOPHARMACEUTICAL: Rest: 10.9 mCi Tc-99m sestamibi via a left antecubital IV site Pharmacologic Stress: 33.8 mCi Tc-99m tetrofosmin via a left antecubital IV site REASON FOR STUDY: CP pressure- center into left side and SOB x1 day, Hx stent x2 2002 2017, HTN, HLD, DM, CAD TECHNIQUE: Standard myocardial perfusion SPECT images were obtained after resting tracer injection. Subsequently, an intravenous infusion of regadenoson was performed. Standard myocardial perfusion images were obtained after tracer injection at the peak effect of the drug. COMPARISON: None FINDINGS: There is decreased perfusion to the inferior wall during stress. Images at rest are not significantly changed. Findings are consistent with myocardial infarct. No reversible perfusion defect to suggest myocardial ischemia. Gated post-stress images demonstrate normal left ventricular wall thickening. The left ventricular volume is normal and the left ventricular ejection fraction is 72% (normal >45%). IMPRESSION: Large fixed perfusion defect in the inferior wall consistent with myocardial ischemia. No reversible perfusion defect to suggest myocardial ischemia. Normal left ventricular size and systolic function. THIS IS AN ELECTRONICALLY VERIFIED FINAL REPORT 07/20/2024 2:13 PM - Electronically signed by Viviane Mccann M.D. FT: FT Report ID: [id number] Reading Location: [id number] THIS IS AN ELECTRONICALLY VERIFIED FINAL REPORT 07/20/2024 2:49 PM Addendum Electronically signed by Viviane Mccann M.D. FT: FT Report ID: [id number] Reading Location: [id number] Impressions 07/20/2024 2:16 PM [employer] IMPRESSION: Large fixed perfusion defect in the inferior wall consistent with myocardial ischemia. No reversible perfusion defect to suggest myocardial ischemia. Normal left ventricular size and systolic function. Narrative 07/20/2024 2:16 PM [employer] EXAM DESCRIPTION: NM CARD MULTI SPECT WITH WALL MOTION AND EJECTION FRACTION RADIOPHARMACEUTICAL: Rest: 10.9 mCi Tc-99m sestamibi via a left antecubital IV site Pharmacologic Stress: 33.8 mCi Tc-99m tetrofosmin via a left antecubital IV site REASON FOR STUDY: CP pressure- center into left side and SOB x1 day, Hx stent x2 2002 2017, HTN, HLD, DM, CAD TECHNIQUE: Standard myocardial perfusion SPECT images were obtained after resting tracer injection. Subsequently, an intravenous infusion of regadenoson was performed. Standard myocardial perfusion images were obtained after tracer injection at the peak effect of the drug. COMPARISON: None FINDINGS: There is decreased perfusion to the inferior wall during stress. Images at rest are not significantly changed. Findings are consistent with myocardial infarct. No reversible perfusion defect to suggest myocardial ischemia. Gated post-stress images demonstrate normal left ventricular wall thickening. The left ventricular volume is normal and the left ventricular ejection fraction is 72% (normal >45%). THIS IS AN ELECTRONICALLY VERIFIED FINAL REPORT 07/20/2024 2:13 PM - Electronically signed by Viviane Mccann M.D. FT: FT Report ID: [id number] Reading Location: [id number] Procedure Note Viviane Martinez MD - 07/20/2024 EXAM DESCRIPTION: NM CARD MULTI SPECT WITH WALL MOTION AND EJECTION FRACTION RADIOPHARMACEUTICAL: Rest: 10.9 mCi Tc-99m sestamibi via a left antecubital IV site Pharmacologic Stress: 33.8 mCi Tc-99m tetrofosmin via a left antecubital IV site REASON FOR STUDY: CP pressure- center into left side and SOB x1 day, Hx stent x2 2002 2017, HTN, HLD, DM, CAD TECHNIQUE: Standard myocardial perfusion SPECT images were obtained after resting tracer injection. Subsequently, an intravenous infusion of regadenoson was performed. Standard myocardial perfusion images were obtained after tracer injection at the peak effect of the drug. COMPARISON: None FINDINGS: There is decreased perfusion to the inferior wall during stress. Images at rest are not significantly changed. Findings are consistent with myocardial infarct. No reversible perfusion defect to suggest myocardial ischemia. Gated post-stress images demonstrate normal left ventricular wall thickening. The left ventricular volume is normal and the left ventricular ejection fraction is 72% (normal >45%). THIS IS AN ELECTRONICALLY VERIFIED FINAL REPORT 07/20/2024 2:13 PM - Electronically signed by Viviane Mccann M.D. FT: FT Report ID: [id number] Reading Location: [id number] IMPRESSION: Large fixed perfusion defect in the inferior wall consistent with myocardial ischemia. No reversible perfusion defect to suggest myocardial ischemia. Normal left ventricular size and systolic function. Carolee Tay APRN, CNP IMG AL CARDIAC NI ORDERABLES Edited Result - Final * ADULT CV STRESS PHARMACOLOGIC W NUC MED (07/20/2024 12:07 PM [employer] [employer]) Anatomical Region Laterality Modality CARDIO N/A Electrocardiogra phy Narrative 07/20/2024 1:37 PM [employer] [employer] Non-Imaging Stress Test Patient Name ART BORJA Sergey Trivedi 1950 Patient ID (UPI) [id number] Indications: Chest pain. Study Date07/20/2024 Type of Study: Non-Imaging Stress Test: Pharmacological. Conclusions Summary - No stress induced ischemia as per EKG criteria. - Nuclear images are reported separately. Rest ECG Normal sinus rhythm. PVCs. Normal ST segment response without evidence of ischemia. Standing HR:57 bpmStanding BP:130/45 mmHg Results ECG Normal sinus rhythm. PVCs. Normal ST segment response without evidence of ischemia. Symptoms Shortness of breath. No chest pain. Stress Stress Type - Protocol:Pharmacologic - Lexiscan Protocol Peak HR: 73 bpm [id number] Peak BP: 116/50 mmHg Predicted HR: 145 bpm % of predicted HR: 50 Test Duration: 13:46 min Reason for Termination: Completed Stress Protocol:Pharmacologic - Lexiscan Protocol +-----+---------+-----+------+-----+ +------+--------+--+--------+----+ ----- -+ !Stage!Stage !Time !Dosage!Heart!Other !Dosage!Blood !CP!Pain !Pain!Pain ! !# !Name ! ! !Rate !Medication! !Pressure! !Location!Type!Action! +-----+---------+-----+------+-----+ +------+--------+--+--------+----+ ----- -+ !0.0 !PREINFSN !13:46! !56 ! ! !130/45 ! ! ! ! ! ! !SUPINE ! ! ! ! ! ! ! ! ! ! ! +-----+---------+-----+------+-----+ +------+--------+--+--------+----+ ----- -+ !1.0 !INFUSION !02:10! !64 ! ! !116/50 ! ! ! ! ! ! !DOSE 1 ! ! ! ! ! ! ! ! ! ! ! +-----+---------+-----+------+-----+ +------+--------+--+--------+----+ ----- -+ !2.0 !POSTINFSN!03:21! !63 ! ! !117/46 ! ! ! ! ! +-----+---------+-----+------+-----+ +------+--------+--+--------+----+ ----- -+ Demographics Age 74 Gender Female Race Height 62.01 in. Weight 233.2 lbs. BMI 42.64 kg/m^2 Stress Data Processing Clerk Room 229 Nurse Chris Delacruz Referring Physician Vijay Physician Procedure Note Vijay Delacruz MD - 07/20/2024 Non-Imaging Stress Test Patient Name ART BORJA Sergey Trivedi 1950 Patient ID (UPI) [id number] Indications: Chest pain. Study Date07/20/2024 Type of Study: Non-Imaging Stress Test: Pharmacological. Conclusions Summary - No stress induced ischemia as per EKG criteria. - Nuclear images are reported separately. Rest ECG Normal sinus rhythm. PVCs. Normal ST segment response without evidence of ischemia. Standing HR:57 bpmStanding BP:130/45 mmHg Results ECG Normal sinus rhythm. PVCs. Normal ST segment response without evidence of ischemia. Symptoms Shortness of breath. No chest pain. Stress Stress Type - Protocol:Pharmacologic - Lexiscan Protocol Peak HR: 73 bpm [id number] Peak BP: 116/50 mmHg Predicted HR: 145 bpm % of predicted HR: 50 Test Duration: 13:46 min Reason for Termination: Completed Stress Protocol:Pharmacologic - Lexiscan Protocol +-----+---------+-----+------+-----+ +------+--------+--+--------+----+ ----- -+ !Stage!Stage !Time !Dosage!Heart!Other !Dosage!Blood !CP!Pain!Pain!Pain ! !# !Name ! ! !Rate !Medication! !Pressure!!Location!Type!Action! +-----+---------+-----+------+-----+ +------+--------+--+--------+----+ ----- -+ !0.0 !PREINFSN !13:46! !56 ! ! !130/45 ! !! ! ! ! !SUPINE ! ! ! ! ! ! ! !! ! ! +-----+---------+-----+------+-----+ +------+--------+--+--------+----+ ----- -+ !1.0 !INFUSION !02:10! !64 ! ! !116/50 ! !! ! ! ! !DOSE 1 ! ! ! ! ! ! ! !! ! ! +-----+---------+-----+------+-----+ +------+--------+--+--------+----+ ----- -+ !2.0 !POSTINFSN!03:21! !63 ! ! !117/46 ! !! ! ! +-----+---------+-----+------+-----+ +------+--------+--+--------+----+ ----- -+ Demographics Age 74 Gender Female Race Height 62.01 in. Weight 233.2 lbs. BMI 42.64 kg/m^2 Stress Data Processing Clerk Room 229 Nurse Chris Delacruz Referring Physician [facility] Physician Carolee Tay APRN, CAREER SPECIALIST IMG STRESS Final Result * Procalcitonin (07/20/2024 5:18 AM [facility] [facility]) PROCALCITONIN 0.08 <=0.25 ng/mL 07/20/2024 6:23 AM [facility] [employer] Blood Venipuncture / Unknown 07/20/2024 5:18 AM [facility] [employer] 07/20/2024 5:36 AM [employer] [employer] [facility] Narrative [facility] - 07/20/2024 6:23 AM [employer] [employer] If the differential diagnosis is systemic bacterial infection, sepsis, or septic shock use these guidelines: <=0.25 ng/mL: Low risk for systemic bacterial infection, sepsis, or septic shock. Localized bacterial infection possible: Suggest re-testing in 24 hours >=0.50 ng/mL: Systemic bacterial infection, sepsis, or septic shock are possible: suggest re-testing in approximately 24 hours. If the differential diagnosis is suspected lower respiratory tract infection (LRTI) or there is confirmed LRTI: < 0.1 ng/mL: Suggests absence of bacterial infection. Antibiotic therapy strongly discouraged. 0.1-0.25 ng/mL: Suggests bacterial infection is unlikely. Antibiotic therapy discouraged. 0.26-0.5 ng/mL: Suggests possible bacterial infection. Antibiotic therapy encouraged. > 0.5 ng/mL: Suggests bacterial infection. Antibiotic therapy strongly encouraged us Elsa Nevarez SUPERVISOR PRESS ROOM, CAREER SPECIALIST IMMUNOLOGY ORDERABLES Final Result [facility] [place] [address] * (ABNORMAL) Hemoglobin A1C w/ Estimated Glucose (07/20/2024 5:18 AM [facility] [employer]) HGB-A1C 6.3(H) 4.0 - 6.0 % 07/20/2024 5:57 AM [employer] Est Average Glucose 134.1 mg/dL 07/20/2024 5:57 AM [employer] [facility] Blood Venipuncture / Unknown 07/20/2024 5:18 AM [employer] 07/20/2024 5:37 AM [employer] Narrative [facility] - 07/20/2024 5:57 AM [facility] HEMOGLOBIN A1C: DIABETIC PATIENTS: WELL-CONTROLLED: 6.2 - 7.0 INTERMEDIATE WELL-CONTROLLED: 7.0 - 9.0 POORLY-CONTROLLED: >9.0 Specimens containing greater than 5% of Hemoglobin F may result in lower than expected % HbA1C results. Elsa Nevarez APRN, CNP CHEMISTRY ORDERABLES Final Result Performing Organization Address [facility] de Phone Number [facility] [place] [address] * TROPONIN I, HIGH SENSITIVITY (HSTRP) (07/20/2024 5:18 AM [employer] [employer]) Only the most recent of3 resultswithin the time period is included. [facility] TROPONIN I, HIGH SENSITIVITY- [facility] 6 <=14 ng/L 07/20/2024 6:23 AM [facility] [employer] Comment: High-sensitivity troponin I results are reported in ng/L making the result appear to be 1,000 times higher than the contemporary troponin I value which is reported in ng/ml. Results from [facility]. Blood Venipuncture / Unknown 07/20/2024 5:18 AM [employer] 07/20/2024 5:36 AM [employer] Elsa Nevarez APRN, CNP CHEMISTRY ORDERABLES Final Result Performing Organization Address [facility] de Phone Number [facility] [place] [address] * (ABNORMAL) CBC with Auto Differential (07/20/2024 5:18 AM [employer]) Only the most recent of2 resultswithin the time period is included. [facility] WBC 9.99 4.00 - 12.00 10(3)/mcL 07/20/2024 5:44 AM [employer] RBC 4.48 3.80 - 5.30 10(6)/mcL 07/20/2024 5:44 AM [facility] HEMOGLOBIN (HGB) 12.5 12.0 - 15.8 g/dL 07/20/2024 5:44 AM [facility] HEMATOCRIT (HCT) 39.7 36.0 - 47.0 % 07/20/2024 5:44 AM [facility] MCV 88.6 82.0 - 96.0 fL 07/20/2024 5:44 AM [facility] MCH 27.9 26.0 - 34.0 pg 07/20/2024 5:44 AM [facility] MCHC 31.5 31.0 - 36.0 g/dL 07/20/2024 5:44 AM [facility] PLATELET COUNT 254 140 - 440 10(3)/mcL 07/20/2024 5:44 AM [facility] RDW 13.7 11.8 - 15.5 % 07/20/2024 5:44 AM [facility] MPV 10.5 9.7 - 12.4 fL 07/20/2024 5:44 AM [facility] NEUTROPHILS 55.7 47.0 - 73.0 % 07/20/2024 5:44 AM [facility] LYMPHOCYTES 36.3 18.0 - 42.0 % 07/20/2024 5:44 AM [facility] MONOCYTES 7.2 4.0 - 12.0 % 07/20/2024 5:44 AM [facility] EOSINOPHILS 0.3 0.0 - 5.0 % 07/20/2024 5:44 AM [facility] BASOPHILS 0.5 0.0 - 1.0 % 07/20/2024 5:44 AM [facility] ABSOLUTE NEUTROPHILS 5.56 1.60 - 7.70 10(3)/mcL 07/20/2024 5:44 AM [facility] ABSOLUTE LYMPHOCYTES 3.63(H) 1.30 - 3.20 10(3)/mcL 07/20/2024 5:44 AM [facility] ABSOLUTE MONOCYTES 0.72 0.20 - 1.00 10(3)/mcL 07/20/2024 5:44 AM [employer] [facility] ABSOLUTE EOSINOPHIL 0.03 0.00 - 0.40 10(3)/mcL 07/20/2024 5:44 AM [employer] ABSOLUTE BASOPHILS 0.05 0.00 - 0.10 10(3)/mcL 07/20/2024 5:44 AM [employer] [facility] NRBC PER 100 WBC 0 07/20/19 5:44 AM [employer] [facility] Blood Venipuncture / Unknown 07/20/2024 5:18 AM [employer] 07/20/2024 5:36 AM [employer] Elsa Nevarez APRN, KIM HEMATOLOGY ORDERABLES Final Result Performing Organization Address City/[facility]/ZIP Co de Phone Number [facility] [place] [address] * Thyroid Stimulating Hormone (TSH) (07/20/2024 5:18 AM [employer] [employer]) Pathologist [facility] TSH 2.375 0.300 - 5.000 mIU/L 07/20/2024 6:23 AM [employer] [facility] Blood Venipuncture / Unknown 07/20/2024 5:18 AM [employer] 07/20/2024 5:36 AM [employer] Elsa Nevarez APRN, KIM CHEMISTRY ORDERABLES Final Result [facility] [place] [address] * (ABNORMAL) Lipid Panel (07/20/2024 5:18 AM [employer]) CHOLESTEROL 172 <200 mg/dL 07/20/2024 9:54 AM [employer] TRIGLYCERIDES 188(H) <150 mg/dL 07/20/2024 9:54 AM [employer] [facility] HDL CHOLESTEROL 40(L) >40 mg/dL 9:54 AM [facility] LDL 94 <130 mg/dL 07/20/2024 9:54 AM [facility] VLDL 38 10 - 50 mg/dL 07/20/2024 9:54 AM [facility] CHOL/HDL RATIO 4.3 0.0 - 4.4 07/20/2024 9:54 AM [facility] NON-HDL CHOLESTEROL 132(H) <130 mg/dL 07/20/2024 9:54 AM [facility] Blood Venipuncture / Unknown 07/20/2024 5:18 AM [employer] 07/20/2024 5:36 AM [facility] Carolee Tay APRN, KIM CHEMISTRY SOL ORTIZ Final Result [facility] [place] [address] * (ABNORMAL) BMP with Ca, Total (07/20/2024 5:18 AM [employer]) SODIUM 141 136 - 145 mmol/L 07/20/2024 6:06 AM [facility] POTASSIUM 4.1 3.5 - 5.1 mmol/L 07/20/2024 6:06 AM [facility] CHLORIDE 108(H) 98 - 107 mmol/L 07/20/2024 6:06 AM [facility] CO2, VENOUS 26 22 - 30 mmol/L 07/20/2024 6:06 AM [facility] ANION GAP 11.1 <18.0 mmol/L 07/20/2024 6:06 AM [facility] GLUCOSE 107(H) 70 - 99 mg/dL 07/20/2024 6:06 AM [facility] BUN 28(H) 10 - 20 mg/dL 07/20/2024 6:06 AM [employer] [employer] CREATININE, BLOOD 2.22(H) 0.60 - 1.00 mg/dL 07/20/2024 6:06 AM [facility] BUN/CREATININE RATIO 13 12 - 20 ratio 07/20/2024 6:06 AM [facility] CALCIUM 9.9 8.7 - 10.5 mg/dL 07/20/2024 6:06 AM [employer] GFR, ESTIMATED 23(L) >=60 07/20/2024 6:06 AM [facility] Comment: Creatinine Clearance is the preferred criteria for selecting drug dose adjustments in renally impaired patients. The GFR is provided as additional pertinent clinical information. GFR is reported in mL/min/1.73 sq m. Calculation based on the Chronic Kidney Disease Epidemiology Collaboration (CKD- EPI) equation refit without adjustment for race. GFR, EST. 26(L) >=60 025 6:06 AM [employer] GFR, EST. NONAFRICAN 22(L) >=60 07/20/2024 6:06 AM [employer] [facility] Blood Venipuncture / Unknown 07/20/2024 5:18 AM [employer] 07/20/2024 5:36 AM [employer] us Elsa Nevarez SUPERVISOR PRESS ROOM, CAREER SPECIALIST CHEMISTRY ORDERABLES Final Result [facility] [place] [address] * B-Type Natriuretic Peptide (BNP) (07/20/2024 5:18 AM [employer]) B TYPE NATRIURETIC PEPTIDE 95 <100 pg/mL 07/20/2024 8:21 AM [employer] [facility] Blood Venipuncture / Unknown 07/20/2024 5:18 AM [employer] 07/20/2024 5:37 AM [employer] Carolee Tay SUPERVISOR PRESS ROOM, CAREER SPECIALIST CHEMISTRY ORDE RABLES Final Result Performing Organization Address City/[facility]/ZIP Co de Phone Number [facility] [place] [address] * RSV,SARS-COV-2,INFLUENZA A&B BY PCR (07/20/2024 2:06 AM [employer]) FLU A Negative Negative, Error 07/20/2024 3:10 AM [employer] [facility] FLU B Negative Negative 07/20/2024 3:10 AM [employer] [facility] RESP SYNC VIRUS Negative Negative 3:10 AM [employer] [facility] SARSCOV2 NOT DETECTED (Reference Range for this test is Not Detected) 07/20/2024 3:10 AM [employer] [facility] Comment:This test was perfor med by a Reverse Custom Miller PCR Method. Swab NASOPHARYNGEAL SWAB / Unknown Non-Phlebotomy Collection / Unknown 07/20/2024 2:06 AM [employer] 07/20/2024 2:17 AM [employer] Narrative [facility] - 07/20/2024 3:10 AM [employer] This test has not been FDA cleared or approved; the test has been authorized by FDA under an Emergency Use Authorization (EUA) for use by laboratories certified under the CLIA that meet the requirements to perform moderate, high or waived complexity tests. Authorized Fact Sheets about this test for providers and patients are available at: https://www.fda.gov/medical-devices/mfsdjhlkx-ryxemxofbd-ezcrsrd-devices/emergen -us e-authorizations us Elsa Nevarez APRN, CNP MICROBIOLOGY - GENERA L ORDERABLES Final Result Performing Organization Address City/[facility]/ZIP Co de Phone Number [facility] [place] [address] * RHYTHM STRIP (07/20/2024 12:00 AM [employer]) Only the most recent of4 resultswithin the time period is included. 07/20/2024 us Provider Scan IMG ECG ORDERABLES Final Result RESULTING AGENCY * XR CHEST SINGLE VIEW PORTABLE (07/19/2024 9:53 PM [employer]) Anatomical Region Laterality Modality Chest N/A Computed Radiogr aphy 07/19/2024 10:3 4 PM [employer] Impressions 07/19/2024 10:36 PM [employer] IMPRESSION: Hypoventilatory chest with bibasilar atelectasis. Underlying infection in the left lung base cannot entirely be excluded. Narrative 07/19/2024 10:36 PM [employer] EXAM DESCRIPTION: XR CHEST SINGLE VIEW PORTABLE REASON FOR STUDY: Chest pain. TECHNIQUE: Single radiographic view of the chest. COMPARISON: Multiple previous studies, the most recent chest x-ray dated April 30, 2020. FINDINGS: LUNGS/PLEURA: Lungs are hypoventilatory with crowding of the vascular markings and bibasilar opacity, greater on the left than the right. HEART/MEDIASTINUM: Cardiac silhouette is within normal limits for AP hypoventilatory view. There is atherosclerosis of the aorta. Remaining mediastinal silhouettes are unremarkable. HARDWARE/LINES/TUBES: EKG leads overlie the film. BONES: No acute findings. THIS IS AN ELECTRONICALLY VERIFIED FINAL REPORT 07/19/2024 10:34 PM - Electronically signed by Tabby Figueroa M.D. SN: Report ID: [id number] Reading Location: [id number] Procedure Note Tabby Figueroa MD - 07/19/2024 EXAM DESCRIPTION: XR CHEST SINGLE VIEW PORTABLE REASON FOR STUDY: Chest pain. TECHNIQUE: Single radiographic view of the chest. COMPARISON: Multiple previous studies, the most recent chest x-ray dated April 30, 2020. FINDINGS: LUNGS/PLEURA: Lungs are hypoventilatory with crowding of the vascular markings and bibasilar opacity, greater on the left than the right. HEART/MEDIASTINUM: Cardiac silhouette is within normal limits for AP hypoventilatory view. There is atherosclerosis of the aorta. Remaining mediastinal silhouettes are unremarkable. HARDWARE/LINES/TUBES: EKG leads overlie the film. BONES: No acute findings. THIS IS AN ELECTRONICALLY VERIFIED FINAL REPORT 07/19/2024 10:34 PM - Electronically signed by Tabby Figueroa M.D. SN: SN Report ID: [id number] Reading Location: [id number] IMPRESSION: Hypoventilatory chest with bibasilar atelectasis. Underlying infection in the left lung base cannot entirely be excluded. us Oswaldo Sue MD IMG DIAGNOSTIC ORDER ELOINA Final Result * Gold Top Tube (07/19/2024 9:48 PM [employer]) Blood No Phlebotomy Charged / Unknown 07/19/2024 9:48 PM [employer] 07/19/2024 10:07 PM [employer] Oswaldo Sue MD CHEMISTRY ORDERABLES Final Result Performing Organization Address [facility]/ZIP Co de Phone Number [facility] [place] [address] * Blue Top Tube (07/19/2024 9:48 PM [employer]) Blood No Phlebotomy Charged / Unknown 07/19/2024 9:48 PM [employer] 07/19/2024 10:07 PM [employer] Oswaldo Sue MD HEMATOLOGY ORDERABLE S Final Result Performing Organization Address [facility]/ZIP Co de Phone Number [facility] [place] [address] * (ABNORMAL) CMP (Comprehensive Metabolic Panel) (07/19/2024 9:48 PM [employer]) SODIUM 140 136 - 145 mmol/L 07/19/2024 10:34 PM [employer] POTASSIUM 4.3 3.5 - 5.1 mmol/L 07/19/2024 10:34 PM [facility] CHLORIDE 108(H) 98 - 107 mmol/L 07/19/2024 10:34 PM [facility] CO2, VENOUS 23 22 - 30 mmol/L 07/19/2024 10:34 PM [facility] ANION GAP 13.3 <18.0 mmol/L 07/19/2024 10:34 PM [facility] [facility] GLUCOSE 188(H) 70 - 99 mg/dL 07/19/2024 10:34 PM [facility] BUN 28(H) 10 - 20 mg/dL 07/19/2024 10:34 PM [facility] CREATININE, BLOOD 2.17(H) 0.60 - 1.00 mg/dL 07/19/2024 10:34 PM [facility] BUN/CREATININE RATIO 13 12 - 20 ratio 07/19/2024 10:34 PM [facility] TOTAL PROTEIN 7.3 6.0 - 8.0 g/dL 07/19/2024 10:34 PM [facility] ALBUMIN 3.7 3.5 - 5.0 g/dL 07/19/2024 10:34 PM [facility] A/G RATIO 1.0 1.0 - 2.2 07/19/2024 10:34 PM [facility] CALCIUM 10.1 8.7 - 10.5 mg/dL 07/19/2024 10:34 PM [facility] T BILI 0.5 0.2 - 1.2 mg/dL 07/19/2024 10:34 PM [facility] SGOT (AST) 17 6 - 42 U/L 07/19/2024 10:34 PM [facility] SGPT (ALT) 7 6 - 55 U/L 07/19/2024 10:34 PM [facility] ALKALINE PHOSPHATASE 93 40 - 150 U/L 07/19/2024 10:34 PM [facility] GFR, ESTIMATED 23(L) >=60 07/19/2024 10:34 PM [facility] Comment: Creatinine Clearance is the preferred criteria for selecting drug dose adjustments in renally impaired patients. The GFR is provided as additional pertinent clinical information. GFR is reported in mL/min/1.73 sq m. Calculation based on the Chronic Kidney Disease Epidemiology Collaboration (CKD- EPI) equation refit without adjustment for race. GFR, EST. 27(L) >=60 025 10:34 PM [facility] GFR, EST. NONAFRICAN 22(L) >=60 07/19/2024 10:34 PM [facility] Blood Venipuncture / Unknown 07/19/2024 9:48 PM [facility] 07/19/2024 10:08 PM [facility] us Oswaldo Sue MD CHEMISTRY ORDERABLES Final Result [facility] [address] [place] [address] * EKG 12 LEAD (07/19/2024 9:37 PM [facility]) Ventricular Rate 57 BPM EXTERNAL EKG QRS Duration 92 ms EXTERNAL EKG Q-T Duration 440 ms EXTERNAL EKG QTC CALCULATION 428 ms EXTERNAL EKG R [place] 6 degrees EXTERNAL EKG T [place] -36 degrees EXTERNAL EKG 07/19/2024 9:37 PM [facility] Impressions EXTERNAL EKG - 07/21/2024 1:17 PM [facility] Normal sinus rhythm Low voltage QRS Nonspecific ST and T wave abnormality Inferior infarct, age undetermined Abnormal ECG When compared with ECG of 29-APR-2023 12:51, No significant change was found ~ Confirmed by Marcelino Perez ([id number]) on 07/21/2024 1:17:52 PM Narrative Procedure Note Marcelino Perez MD - 07/21/2024 IMPRESSION: Normal sinus rhythm Low voltage QRS Nonspecific ST and T wave abnormality Inferior infarct, age undetermined Abnormal ECG When compared with ECG of 29-APR-2023 12:51, No significant change was found ~ Confirmed by Marcelino Perez ([id number]) on 07/21/2024 1:17:52 PM us Oswaldo Sue MD IMG ECG ORDERABLES F inal Result EXTERNAL EKG * EKG SCAN (07/19/2024 12:00 AM [facility]) 07/19/2024 us Provider Scan IMG ECG ORDERABLES Final Result RESULTING AGENCY * DUY SCREENING BILATERAL DIGITAL W CAD W HARLEEN (08/06/2022 3:00 PM [facility]) Anatomical Region Laterality Modality breast Bilateral Mammography 08/06/2022 3:12 PM [facility] Narrative 08/07/2022 3:59 PM [facility] - DUY SCREENING BILATERAL DIGITAL W CAD W HARLEEN BILATERAL DIGITAL SCREENING MAMMOGRAM 3D/2D WITH CAD WITH MEDIOLATERAL OBLIQUE CRANIOCAUDAL: 08/06/2022 The study was acquired using digital technology and interpreted from soft copy. Current study was also evaluated with ICAD version 7.2. 2D digital mammographic views, as well as 3D digital tomosynthesis were performed in the CC and MLO projections. CLINICAL: Routine screening. Patient has no complaints. Personal history of uterine cancer. Maternal cousin had breast cancer. COMPARISONS: Comparison is made to exams dated: 03/28/2020, 09/02/2019, 03/08/2019, 01/01/2018 [facility], 10/30/2017, and 10/27/2017 [facility]. BREAST TISSUE:There are scattered fibroglandular densities in both breasts. FINDINGS: There are benign scattered calcifications in the left breast. There also are benign vascular calcifications in the left breast. Additionally, there are benign post operative findings in the left breast. No significant masses, calcifications, or other findings are seen in either breast. There has been no significant interval change. IMPRESSION: BI-RAD 2 BENIGN There is no mammographic evidence of malignancy. A 1 year screening mammogram is recommended. A letter will be sent to the patient with these results. The patient will be entered into a reminder system with a target due date of 1 year for her next screening exam. Electronically signed by: Dafne urena/penrad:08/07/2022 11:22:27 Material Assistant(s): SONI Lao)(M), [facility] letter sent: Normal Exam Reading location: [facility] BI-RADS: 2 Benign Procedure Note Dafne Cordero MD - 08/07/2022 - DUY SCREENING BILATERAL DIGITAL W CAD W HARLEEN BILATERAL DIGITAL SCREENING MAMMOGRAM 3D/2D WITH CAD WITH MEDIOLATERAL OBLIQUE CRANIOCAUDAL: 08/06/2022 The study was acquired using digital technology and interpreted from soft copy. Current study was also evaluated with ICAD version 7.2. 2D digital mammographic views, as well as 3D digital tomosynthesis were performed in the CC and MLO projections. CLINICAL: Routine screening. Patient has no complaints. Personal history of uterine cancer. Maternal cousin had breast cancer. COMPARISONS: Comparison is made to exams dated: 03/28/2020, 09/02/2019, 03/08/2019, 01/01/2018 [facility], 10/30/2017, and 10/27/2017 [facility]. BREAST TISSUE:There are scattered fibroglandular densities in both breasts. FINDINGS: There are benign scattered calcifications in the left breast. There also are benign vascular calcifications in the left breast. Additionally, there are benign post operative findings in the left breast. No significant masses, calcifications, or other findings are seen in either breast. There has been no significant interval change. IMPRESSION: BI-RAD 2 BENIGN There is no mammographic evidence of malignancy. A 1 year screening mammogram is recommended. A letter will be sent to the patient with these results. The patient will be entered into a reminder system with a target due date of 1 year for her next screening exam. Electronically signed by: Dafne urena/penrad:08/07/2022 11:22:27 Material Assistant(s): SONI Lao)(M), [facility] letter sent: Normal Exam Reading location: [facility] BI-RADS: 2 Benign us Travis Torrez MD IMG MAMMO ORDERABLES Final Resu lt * [facility] BONE DENSITOMETRY AXIAL SKELETON (08/06/2022 2:30 PM [facility]) Anatomical Region Laterality Modality BODY N/A Computed Radiogr aphy 08/07/2022 6:48 AM [facility] Impressions 08/07/2022 6:51 AM [facility] IMPRESSION: Low bone mass REFERENCE: Bone mineral density: Normal (T-score above or = -1.0) Low bone mass (T-score between -1.0 and -2.5) replaces the previously used term osteopenia Osteoporosis (T-score = or below -2.5) Medical evaluation for secondary causes of low bone mineral density may be appropriate. FRAX is a World Health Organization validated fracture risk assessment tool that calculates a person's 10 year probability of a major osteoporosis related fracture and hip fracture. According to the National Osteoporosis Foundation guidelines, postmenopausal women and men age 50 or older with low bone mass and a 10 year probability of a major osteoporosis related fracture = or greater than 20% or a 10 year probability of a hip fracture = or greater than 3% should be considered for treatment. For further information, including treatment recommendations, please refer to the 2013 ISCD Official Positions (http://www.iscd.org) and the NOF's Clinician's Guide to Prevention and Treatment of Osteoporosis (http://www.nof.org/professionals/clinical-guidelines) Narrative 08/07/2022 6:51 AM [facility] EXAM DESCRIPTION: [facility] BONE DENSITOMETRY AXIAL SKELETON REASON FOR STUDY: 72 y/o year old F with given history of screening. Groundman/Lineman/Model: Clearleap (S/N [id number]) CLINICAL INFORMATION: Current height: 62 inches Maximum height: 62 inches Weight: 254.7 pounds Risk factors: Secondary osteoporosis. COMPARISON: 04/30/2018 FINDINGS: AP LUMBAR SPINE L1-L4: Total BMD is 1.321 g/cm2 T-score is 1.0 Most recent prior BMD was 1.338 g/cm2 There has been a 1.3% decrease in BMD which is not statistically significant. LEFT HIP: Current Total BMD is 0.855 g/cm2 T-score is -1.2 Most recent prior Total BMD was 0.902 g/cm2 There has been a 5.2% decrease in BMD which is statistically significant. Current femoral neck BMD is 0.901 g/cm2 T-score is -1.0 FRAX: 10 year risk for a major osteoporotic fracture is 7.9 %, 10 year risk for a hip fracture is 0.9 % THIS IS AN ELECTRONICALLY VERIFIED FINAL REPORT 08/07/2022 6:48 AM - Electronically signed by Brinda Neal M.D. TW: TW Report ID: [id number] Reading Location: [id number] Procedure Note Brinda Neal MD - 08/07/2022 EXAM DESCRIPTION: [facility]Y BONE DENSITOMETRY AXIAL SKELETON REASON FOR STUDY: 72 y/o year old F with given history of screening. Groundman/Lineman/Model: Clearleap (S/N [id number]) CLINICAL INFORMATION: Current height: 62 inches Maximum height: 62 inches Weight: 254.7 pounds Risk factors: Secondary osteoporosis. COMPARISON: 04/30/2018 FINDINGS: AP LUMBAR SPINE L1-L4: Total BMD is 1.321 g/cm2 T-score is 1.0 Most recent prior BMD was 1.338 g/cm2 There has been a 1.3% decrease in BMD which is not statistically significant. LEFT HIP: Current Total BMD is 0.855 g/cm2 T-score is -1.2 Most recent prior Total BMD was 0.902 g/cm2 There has been a 5.2% decrease in BMD which is statistically significant. Current femoral neck BMD is 0.901 g/cm2 T-score is -1.0 FRAX: 10 year risk for a major osteoporotic fracture is 7.9 %, 10 year risk for a hip fracture is 0.9 % THIS IS AN ELECTRONICALLY VERIFIED FINAL REPORT 08/07/2022 6:48 AM - Electronically signed by Brinda Neal M.D. TW: TW Report ID: [id number] Reading Location: [id number] IMPRESSION: Low bone mass REFERENCE: Bone mineral density: Normal (T-score above or = -1.0) Low bone mass (T-score between -1.0 and -2.5) replaces the previously used term osteopenia Osteoporosis (T-score = or below -2.5) Medical evaluation for secondary causes of low bone mineral density may be appropriate. FRAX is a World Health Organization validated fracture risk assessment tool that calculates a person's 10 year probability of a major osteoporosis related fracture and hip fracture. According to the National Osteoporosis Foundation guidelines, postmenopausal women and men age 50 or older with low bone mass and a 10 year probability of a major osteoporosis related fracture = or greater than 20% or a 10 year probability of a hip fracture = or greater than 3% should be considered for treatment. For further information, including treatment recommendations, please refer to the 2013 ISCD Official Positions (http://www.iscd.org) and the NOF's Clinician's Guide to Prevention and Treatment of Osteoporosis (http://www.nof.org/professionals/clinical-guidelines) us Travis Torrez MD IMG DEXA ORDERABLES Final Resul t * (ABNORMAL) Stool Occult Blood - Diagnostic (04/30/2020 11:15 AM [facility]) [facility] OCCULT BLOOD DIAG, GI BLEED Positive(A ) Negative 04/30/2020 11:53 AM [facility] Stool Non-Phlebotomy Collection / Unknown 04/30/2020 11:15 AM [facility] 04/30/2020 11:41 AM [facility] us Leland Rowan MD BODY FLUIDS & STOOLS ORDERABLES Final Result [facility] [address] [place] [address] * Hepatitis Panel Acute (AHP)-BELÉN (02/25/2019 3:42 AM CDT) [facility] HEPATITIS A IGM ANTIBODY NON DETECTED NON DETECTED 02/25/2019 3:20 PM CDT [facility] Comment: IGM Antibodies to HAV not detected. Does not exclude early acute or recovered HAV infection. HEP B CORE AB (IGM) NON DETECTED NON DETECTED 02/25/2019 3:20 PM CDT [facility] Comment: IGM anti-HBC not detected. Does not exclude the possibility of exposure to or infection with HBV. HEPATITIS B SURFACE ANTIGEN NON DETECTED NON DETECTED 02/25/2019 3:20 PM CDT [facility] Comment: A nonreactive test result does not exclude the possibility of exposure to or infection with Hepatitis B virus. A nonreactive test result in individuals with prior exposure to hepatitis B may be due to antigen levels below the detection limit of this assay or lack of antigen reactivity to the antibodies in this assay. hepatitis C antibody 0.12 <1 S/CO 02/25/2019 3:20 PM CDT [facility] Comment: Signal/Cutoff ratio < 0.79 is Nondetected Signal/Cutoff ratio 0.80-0.99 is Grayzone Signal/Cutoff ratio > 0.99 is Detected Supplemental assays are recommended if signal/cutoff ratio is >/=1.00. Signal/cutoff ratio result >/= 5.00 is 97% predictive of positivity for recombinant immunoblot assay (RIBA) and will be reported to the [place] Department of Public Health as required. Blood specimen (specimen) Butterfly Puncture / Unknown 02/25/2019 3:42 AM CDT 02/25/2019 3:42 AM CDT us Verena Crespo MD HEMATOLOGY ORDERABLES F inal Result [facility] [address] [place] [address], from Last 3 Months or Most Recently Relevant to Health Maintenance Insurance [facility]IC[facility] Advance Directives Documents on File Type Date Recorded Patient Caser Up Expl anation Advance Care Planning Discussion 05/10/2020 9:59 AM ACP Discussion Recor d 05/10/20 * Full Code (Latest Code Status on File) Date Activated Date Inactivated Comments 07/20/2024 1:03 AM CPR-Full Treat ment: FULL ARREST: Attempt Resuscitation/CPR wit intubation and mechanical ventilation. PRE-ARREST: Use entire range of life support measures to stabilize the patient. * Full Code Date Activated Date Inactivated Comments 04/29/2023 8:37 PM 05/01/2023 2:37 PM CPR-Full Tr eatment: FULL ARREST: Attempt Resuscitation/CPR wit intubation and mechanical ventilation. PRE-ARREST: Use entire range of life support measures to stabilize the patient. * No CPR-Selective Treatment Date Activated Date Inactivated Comments 04/30/2020 7:01 PM 05/04/2020 2:34 PM No CPR - Mackenzie ective Treatment: FULL ARREST: Do Not Attempt Resuscitation. PRE-ARREST: DO NOT USE INTUBATION OR MECHANICAL VENTILATION, but may use basic medical treatment like CPAP or BiPAP, antibiotics, IV fluids, oxygen, etc. Avoid care in ICU setting. Question Answer Comments Physician documentation made in notes? Yes * No CPR-Comfort Focused Treatment Date Activated Date Inactivated Comments 04/30/2020 6:44 PM 04/30/2020 7:01 PM No CPR - Com fort-Focused Treatment: FULL ARREST: Do Not Attempt Resuscitation. PRE-ARREST: Goal is to maximize comfort through symptom management and allow for a natural . Hospitalization is not preferred unless comfort can't be established elsewhere. Question Answer Comments Physician documentation made in notes? Yes * Full Code Date Activated Date Inactivated Comments 02/23/2019 9:45 PM 03/03/2019 6:30 PM CPR-Full Haylie tment: FULL ARREST: Attempt Resuscitation/CPR wit intubation and mechanical ventilation. PRE-ARREST: Use entire range of life support measures to stabilize the patient. Care Teams Manager Revenue Relationship Specialty Start Date End Date Travis Torrez MD [address] [id number] PCP - General Family Medicine 05/21/22 Carolee Tay APRN, CAREER SPECIALIST [address] [place] [phone] Nurse Practitioner Certified Nurse Practitioner 08/20/24
--- OUTSIDE RECORDS SUMMARY | 2024-08-25 07:25 | XMS_ITS | Continuity of Care Document ---
Author Organization [facility] Address [address] [place] [address] Phone Care Team Providers Care Cad Application Support Specialist Name Role Phone Aline FRIEDMAN, Julian Unavailable Unavailable Procedures Procedure Date Work/medical disability examination I Moises Herman Record Review X-ray exam of knee, 3 views Advance Directives Directive Yes / No Effective Date File Name No Information Encounters Encounter Description Practice Location Reason(s) For Visit Diagnoses Date Provider Providers Copied on Encounter Work/medical disability examination I Moises Herman [facility], [address], [id number], [place] tel:[phone] [facility] No Information [address]. [address] [address], [place], [place], [id number] , . tel:[phone] Family History Family Member Type Diagnosis Age At Onset No Information Payers Payer name Insurance type Covered green party ID Authoriza tiarmani(s) [facility] [id number] Social History Type Description Quantity Date Captured [...]
--- OUTSIDE RECORDS SUMMARY | 2024-08-25 07:25 | XMS_ITS | Encounter Summary ---
Author Organization [facility] Address [address] [place] [address] Phone Care Team Providers Care Electrician Helper Name Role Phone Julian Encarnacion MD Primary Care Provider [phone] Travis Torrez MD Primary Care Provider [phone] Carolee Tay APRN, TRAFFIC WAREHOUSE SUPERVISOR Unavailable Reason for Visit * Reason Comments Medication Refill Encounter Details Date Type Department Care Team (Late st Contact Info) Description 05/17/2021 Refill [facility] - Family Medicine [facility] [address] [place] [address] Julian Encarnacion MD [address] [address] Medication Refill Social History Tobacco Use Types Packs/Day Years Used Date Smoking Tobacco: Never Smokeless Tobacco: Never Alcohol Use Standard Drinks/Week Comments No 0 (1 standard drink = 0.6 oz pur e alcohol) PHQ-2 Answer Date Recorded Total Score - Questions 1-9 0 03/31 Comments No Sex and Gender Information Value Date Recorded Sex Assigned at Not on file Legal Sex Female 7:37 PM CDT Gender Identity Not on file Sexual Orientation Not on file documented as of this encounter Miscellaneous Notes * Telephone Encounter - Julian Encarnacion MD - 05/17/2021 10:12 AM CST Prescription pending signature ER SPRINKLER * Telephone Encounter - Dominique Conway RN - 05/17/2021 10:10 AM CST Last Rx/fill 04/05/21 Medication failed the protocol, provider to review and approve the medication order if appropriate. Requested Prescriptions Pending Prescriptions Disp Refills acetaminophen-codeine (TYLENOL #3) 300-30 MG Tablet [Pharmacy Med Name: ACETAMINOPHEN/CODEINE 300-30MG TABLET] 30 Tablet 0 Sig: TAKE 1 TABLET BY MOUTH 2 TIMES DAILY NEEDED FOR MODERATE OR MORE SEVERE PAIN. [email or web address] Not Delegated - Analgesics: Opioid Agonist Combinations Failed - 05/17/2021 10:10 AM Failed - This refill cannot be delegated Passed - Valid encounter within last 6 months Past Office Visits Recent Outpatient Visits 2 months ago Arthralgia, unspecified joint [facility] - Julian Hines MD 7 months ago Type 2 diabetes mellitus without complication, with long-term current use of insulin ([facility]) [facility] Julian Graham MD 10 months ago Type 2 diabetes mellitus without complication, with long-term current use of insulin ([facility]) [facility] Julian Graham MD 11 months ago Hematemesis, presence of nausea not specified [facility] Julian Graham MD 1 year ago Hematemesis, presence of nausea not specified [facility] Julian Graham MD Upcoming Appointments [employer]ID [employer]E [employer]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 - Recent and Past Visits Recent Visits Date Type Provider Dept 02/21/21 Office Visit Julian Encarnacion MD [facility] 10/18/20 Office Visit Julian Encarnacion MD [facility] 07/20/20 Office Visit Julian Encarnacion MD [facility] 06/08/20 Office Visit Julian Encarnacion MD [facility] 05/10/20 Office Visit Julian Encarnacion MD [facility] 03/23/20 Office Visit Julian Encarnacion MD [facility] 02/18/20 Office Visit Aletha Anand PAC [facility] [place] Showing recent visits within past 460 days with a meds authorizing provider and meeting all other requirements Future Appointments No visits were found meeting these conditions. Showing future appointments within next 90 days with a meds authorizing provider and meeting all other requirements ER SPRINKLER documented in this encounter Plan of Treatment Upcoming Encounters Date Type Department Care Team (Late st Contact Info) Description 08/15/2025 10:00 AM [facility]BER SPRINKLER Office Visit [facility] - Cardiology [facility] [address] [place] [address] Carolee Tay APRN, TRAFFIC WAREHOUSE SUPERVISOR [address] [place] [address] documented as of this encounter Visit Diagnoses Diagnosis Arthralgia, unspecified joint documented in this encounter Additional Health Concerns Infection Onset Date Last Indicated Resolved Time COVID - 19 07/20/2024 07/20/2024 07/20/2024 3:10 AM TIMBER SPRINKLER Assessment Noted Time PHQ-9 Depression Total Score: 0 04/24/20 20 10:39 AM CDT documented as of this encounter Care Teams Electrician Helper Relationship Specialty Start Date End Date Julian Encarnacion MD [address] [address] PCP - General Family Medicine 03/28/20 04/23/22 Travis Torrez MD [address] [place] [address] PCP - General Family Medicine 05/21/22 Carolee Tay APRN, TRAFFIC WAREHOUSE SUPERVISOR [address] [place] [address] Nurse Practitioner Certified Nurse Practitioner 08/20/24 documented as of this encounter
--- OUTSIDE RECORDS SUMMARY | 2024-08-25 07:25 | XMS_ITS | Referral Summary ---
Author Organization [facility] Address [address] [place] [address] Care Team Providers Care Software Project Engineer Name Role Phone Cody Polk MD Unavailable [phone] Wen Nelson MD Unavailable José Miguel Alva MD Unavailable [phone] Drew Martínez MD Unavailable [phone] Lopez Nunez DO Unavailable [phone] Autumn Chapman OD Unavailable [phone] Alcon Camacho MD Unavailable [phone] Tess Brennan MD Unavailable [phone] Tee Moura MD Unavailable [phone] Michel Linda MD Unavailable Verena Crespo MD Unavailable [phone] Julian Encarnacion MD Primary Care Provider [phone] Encounters Date Type Department Care Team Description 07/19/2024 9:11 PM BINDERY WORKER - 07/19/2024 11:59 PM BINDERY WORKER Hospital Encounter [facility] Emergency, Room R Discharge Disposition: Discharge to home or self care from Last 3 Months Allergies Active Allergy Reactions Criticality Noted Date [...] complication, without long-term current use of insulin ([facility]) Use with glucose strips - monitor glucose checks 2 times daily. 1 each 8 Active cyanocobalamin (Vitamin B-12) 1,000 mcg tabletIndications: Type 2 diabetes mellitus with other diabetic kidney complication, without long-term current use of insulin ([facility]) Take 1 tablet (1,000 mcg total) by mouth daily 90 tablet 3 9 Active pen needle, diabetic 32 gauge x 11/12 needleIndications: Type 2 diabetes mellitus with other diabetic kidney complication, without long-term current use of insulin ([facility]) 1 Dose daily 100 each 9 Active blood glucose diagnostic (ACCU-CHEK CECILIA [...] disease, with long-term current use of insulin ([facility]) Take 500 mg by mouth daily with breakfast Active warfarin (COUMADIN) 1 mg tabletIndications: Recurrent pulmonary embolism (CMS/HCC) ([facility]) Take 1 -3 tablets by mouth daily as directed by MD per INR results. 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 AXIS B: Polysomnography, 457[address]. Ischemic heart disease due t o coronary artery obstruction ([facility]) 06/17/2012 Overview (04/24/2018): Images from the original [...] 03/12/2019 NSTEMI (non-ST elevated myoc ardial infarction) ([facility]) 09/07/2017 09/07/2017 Acute saddle pulmonary embol ism with acute cor pulmonale 09/07/2017 09/07/2017 History of inferior vena cav al filter placement 04/25/2017 04/28/2017 History of pulmonary embolism 02/27/2017 04/28/2017 Overview (02/27/2017): Treated for 6 months with warfarin after endometrial cancer surgery postoperative Pe. 03/2014 through 09/2014 Immunizations Immunization Administration Dates Next Due Influenza, [...] adsorbed 09/23/2008 Tdap 06/24/2011 ZOSTER Recombinant 03/23/2024,08/14/2023 Social History Tobacco Use Types Packs/Day Years Used Date Smoking Tobacco: Never Smokeless Tobacco: Never Alcohol Use Standard Drinks/Week Comments No 0 (1 standard drink = 0.6 oz pur e alcohol) PHQ-2 Answer Date Recorded PHQ-2 Score 0 02/18/2019 Comments No Sex and Gender Information Value Date Recorded Sex Assigned at Not on file Legal Sex Female 11:50 PM BINDERY WORKER Gender Identity Not on file Sexual Orientation Not on file Occupation Industry Job Start Date Job End Date Retired Not on file Not on file Not on file Last Filed Vital Signs Vital Sign Reading Time Taken Comments Blood Pressure 110/60 08/10/2019 9:44 AM BINDERY WORKER Pulse 68 08/10/2019 9:44 AM BINDERY WORKER Temperature 36.1 C (97 F) 05/25/2019 7:56 AM BINDERY WORKER Respiratory Rate 12 08/10/2019 9:44 AM BINDERY WORKER Oxygen Saturation 97% 08/10/2019 9:44 AM BINDERY WORKER Inhaled Oxygen Concentration - - Weight 113.4 kg (250 lb) 08/10/2019 9:44 AM BINDERY WORKER Height 157.5 cm (5' 2 ) 01/26/2019 9:45 AM CDT Body Mass Index 45.73 01/26/2019 9:45 AM CDT Plan of Treatment Not on file Procedures Procedure Name Priority Date/Time Associated Diagnosis Comments HEMOGLOBIN A1C Routine 11/23/2019 9:21 AM CDT Type 2 diabetes mellitus with stage 4 chronic kidney disease, with long-term current use of insulin (CMS/HCC) COMPREHENSIVE METABOLIC PANEL Routine 08/07/2019 9:31 AM BINDERY WORKER Type 2 diabetes mellitus with stage 4 chronic kidney disease, with long-term current use of insulin (CMS/HCC) Hypertension complicating diabetes (CMS/HCC) ALBUMIN CREATININE RATIO, URINE Routine 08/07/2019 9:31 AM BINDERY WORKER Type 2 diabetes mellitus with stage 4 chronic kidney disease, with long-term current use of insulin (CMS/HCC) Hypertension complicating diabetes (CMS/HCC) SCREENING MAMMOGRAM 2D BILATERAL Schedule Routine, Read Routine (OP Routine) 10/27/2017 10:50 AM CDT Encounter for screening mammogram for malignant neoplasm of breast HEPATITIS C ANTIBODY Routine 09/05/2017 1:37 PM BINDERY WORKER SERUM LIPID PANEL Routine 07/24/2016 9:0 5 AM BINDERY WORKER from Last 3 Months or Most Recently [...] MD LAB BLOOD ORDERABLES Final Result [facility] [employer] [address] [facility] [place] [address] * (ABNORMAL) Albumin Creatinine Ratio, Urine (08/07/2019 9:31 AM BINDERY WORKER) Creatinine, ur 142 20 - 275 mg/dL [facility] [place] Microalbumin, ur 17.3 See Note: mg/dL [facility] [place] Comment: Reference Range: Reference Range Not established Microalbumin/creat ratio 122(H) <30 mcg/mg creat [facility] [place] Comment: The ADA defines abnormalities in albumin excretion as follows: Category Result (mcg/mg creatinine) Normal <30 Microalbuminuria 30-299 Clinical albuminuria > OR = 300 The ADA recommends that at least two of three specimens collected within a 3-6 month period be abnormal before considering a patient to be within a diagnostic category. Urine 08/07/2019 9:31 AM BINDERY WORKER 08/07/2019 9:31 AM BINDERY WORKER Narrative Resulting Agency Comment Performing Organization Information: Site ID: ID Name: [email or web address] Address: [address] [place] [address] [place] [address] Director: Cody Castro D.O., MPH us Valerie Grimaldo MD LAB URINE ORDERABLES Final Result [facility] [place] JERSON Up * (ABNORMAL) Comprehensive metabolic panel (08/07/2019 9:31 AM BINDERY WORKER) Glucose 148(H) 65 - 99 mg/dL [facility] [place] Comment: Fasting reference interval For someone without known diabetes, a glucose value >125 mg/dL indicates that they may have diabetes and this should be confirmed with a follow-up test. BUN 29(H) 7 - 25 mg/dL [facility] [place] Creatinine 1.72(H) 0.60 - 0.93 mg/dL [facility] [place] Comment: For patients >49 years of age, the reference limit for Creatinine is approximately 13% higher for people identified as -Nauruan. eGFR NON-AFR. [place]OU[place]ORE[place] 30(L) > OR = 60 mL/min/1. 73m2 [...] [place] AST 10 10 - 35 U/L [facility] [place] ALT (SGPT) 8 6 - 29 U/L [facility] [place] Blood specimen (specimen) 08/07/2019 9:31 AM BINDERY WORKER 08/07/2019 9:31 AM BINDERY WORKER Narrative Resulting Agency Comment Performing Organization Information: Site ID: [id number] Name: [facility] Address: [address] [address] Director: Cody Castro D.O., MPH us Valerie Grimaldo MD LAB BLOOD ORDERABLES Final Result [facility] Gale * Screening Mammogram 2D [...] significant calcifications or other abnormalities are seen. us Wen Nelson MD IMG MAMMO PROCEDURES Final Result * Hepatitis C antibody (09/05/2017 1:37 PM BINDERY WORKER) Hep C Ab Negative Negative NATASHA Blood specimen (specimen) 09/05/2017 1:37 PM BINDERY WORKER 09/05/2017 8:35 PM BINDERY WORKER Narrative NATASHA SON - 09/05/2017 9:21 PM BINDERY WORKER us Valerie Grimaldo MD LAB MICROBIOLOGY - GENERAL ORDERABLES Edited Result - Final NATASHA [address] [address] [place] [address] * (ABNORMAL) Serum lipid panel (07/24/2016 9:05 AM BINDERY WORKER) Cholesterol 222(H) 100 - 200 mg/dl CDR [...] last revised 2016. Serum 07/24/2016 9:05 AM BINDERY WORKER us Valerie Grimaldo MD LAB BLOOD ORDERABLES Final Result CDR HISTORICAL RESULTS from Last 3 Months or Most Recently Relevant to Health Maintenance [facility] HMO REF MEDICARE [facility] MEDICARE ADV [facility] MDCR HMO REF [facility] Address: [address] [address] [place] [address] Advance Directives For more information, please contact: [phone] Documents on File Type Date Recorded Patient Superannuation Funds Manager Expl anation ADVANCE DIRECTIVE 05/01/2018 2:42 PM POWER OF HARDBOARD SUPERVISOR ADVANCE DIRECTIVE 05/01/2018 2:42 PM Care Teams Software Project Engineer Relationship Specialty Start Date End Date Julian Encarnacion MD [address] [address] PCP - General Family Medicine 11/22/[address] [place] [address] [facility] [address] [place] [address] Pulmonary Disease 02/27/17 Wen Nelson MD [address] [place] [address] Obstetrics and Gynecology 02/27/17 José Miguel Alva MD [address] [facility] [address] [place] [address] Gynecologic Oncology 02/27/17 Drew Martínez MD [address] [place] [address] Orthopedic Surgery 02/27/17 Lopez Nunez DO [address] [place] [address] Consulting Physician Gastroenterology 04/25/17 Autumn Chapman OD [address] [place] [address] Optometry 04/28/[address] [place] [address] [facility] [address] [place] [address] Consulting Physician Cardiology 09/07/17 Tess Brennan MD [address] [address] Referring Physician Gastroenterology 09/25/17 Tee Moura MD 2 [facility] [address] [place] [address] Referring Physician Surgery 11/29/17 Michel Linda MD [address] [facility] [address] [place] [address] Referring Physician General Surgery 03/11/19 Verena Crespo MD [address] [facility] [address] [place] [address] Consulting Physician Nephrology 03/13/19
--- OUTSIDE RECORDS SUMMARY | 2024-08-25 07:26 | XMS_ITS | Encounter Summary ---
Author Organization [facility] Address [address] [place] [address] Phone Care Team Providers Care Child Adolescent Psychiatrist Name Role Phone Julian Encarnacion MD Primary Care Provider [phone] Travis Torrez MD Primary Care Provider [phone] Carolee Tay APRN, MEDICAL AFFAIRS DIRECTOR Unavailable Reason for Visit * Reason Comments Medication Refill Encounter Details Date Type Department Care Team (Late st Contact Info) Description 07/20/2021 Refill [facility] - Family Medicine [facility] [address] [place] [address] Julian Encarnacion MD #[address] [address] Medication Refill Social History Tobacco Use Types [...] encounter Miscellaneous Notes * Telephone Encounter - Dominique Conway RN - 07/20/2021 12:07 PM CST metFORMIN (GLUCOPHAGE-XR) 500 MG TABLET SR 24 HR 90 Tablet 3 11/15/2020 Sig: TAKE 1 TABLET BY MOUTH 3 TIMES DAILY. THIS RX IS FOR METFORMIN SR. Sent to pharmacy as: metFORMIN HCl ER 500 MG Oral Tablet Extended Release 24 Hour (GLUCOPHAGE-XR) Class: E Prescribe E-Prescribing Status: Receipt confirmed by pharmacy (11/15/2020 10:31 AM CDT) Order Questions ?? metFORMIN (GLUCOPHAGE-XR) 500 MG TABLET SR 24 HR [[id number]] 1031 Status: Active Ordering user: Julian Encarnacion MD 11/15/20 103 Authorized by: Julian Encarnacion MD Frequency: ??11/15/20 - Until Discontinued Released by: Julian Encarnacion MD 11/15/20 103 [facility]acy [id number] PREVENTION CAPTAIN documented in this encounter Plan of Treatment Upcoming Encounters Date Type Department Care Team (Late st Contact Info) Description 08/15/2025 10:00 AM FIRE PREVENTION CAPTAIN Office Visit [facility] - Cardiology - [place] [address] [place] [address] Carolee Tay APRN, MEDICAL AFFAIRS DIRECTOR [address] [place] [address] documented as of this encounter Visit Diagnoses Not on filedocumented in this encounter Additional Health Concerns Infection Onset Date Last Indicated Resolved Time COVID - 19 07/20/2024 07/20/2024 07/20/2024 3:10 AM FIRE PREVENTION CAPTAIN Assessment Noted Time PHQ-9 Depression Total Score: 0 04/24/20 10:39 AM CDT documented as of this encounter Care Teams Child Adolescent Psychiatrist Relationship Specialty Start Date End Date Julian Encarnacion MD #[address] [address] PCP - General Family Medicine 03/28/20 04/23/22 Travis Torrez MD [address] [place] [address] PCP - General Family Medicine 05/21/22 Carolee Tay APRN, MEDICAL AFFAIRS DIRECTOR [address] [place] [address] Nurse Practitioner Certified Nurse Practitioner 08/20/24 documented as of this encounter
--- OUTSIDE RECORDS SUMMARY | 2024-08-25 07:26 | XMS_ITS | Encounter Summary ---
Author Organization [facility] Address [address] [place] [address] Phone Care Team Providers Care Roving Frame Tender Name Role Phone Julian Encarnacion MD Primary Care Provider Travis Torrez MD Primary Care Provider [phone] Carolee Tay APRN, WELT DRAWER Unavailable Reason for Visit * Reason Comments Medication Refill Encounter Details Date Type Department Care Team (Late st Contact Info) Description 12/08/2020 Refill [facility] - Anticoagulation [facility] [address] [place] [address] Julian Encarnacion MD [address] [address] Medication Refill Social History Tobacco Use Types [...] as of this encounter Plan of Treatment Upcoming Encounters Date Type Department Care Team (Late st Contact Info) Description 08/15/2025 10:00 AM COMBAT INFORMATION CENTER OFFICER Office Visit [facility] - Cardiology [facility] [address] [place] [address] Carolee Tay APRN, WELT DRAWER [address] [place] [address] documented as of this encounter Visit Diagnoses Not on filedocumented in this encounter Additional Health Concerns Infection Onset Date Last Indicated Resolved Time COVID - 19 07/20/2024 07/20/2024 07/20/2024 3:10 AM COMBAT INFORMATION CENTER OFFICER Assessment Noted Time PHQ-9 Depression Total Score: 0 04/24/20 10:39 AM CDT documented as of this encounter Care Teams Roving Frame Tender Relationship Specialty Start Date End Date Julian Encarnacion MD [address] [address] PCP - General Family Medicine 03/28/20 04/23/22 Travis Torrez MD [address] [place] [address] PCP - General Family Medicine 05/21/22 Carolee Tay APRN, KIM [address] [place] [address] Nurse Practitioner Certified Nurse Practitioner 08/20/24 documented as of this encounter
--- OUTSIDE RECORDS SUMMARY | 2024-08-25 07:26 | XMS_ITS | Encounter Summary ---
Author Organization [facility] Address [address] [place] [address] Phone Care Team Providers Care Gis Database Administrator Name Role Phone Valerie Grimaldo MD Primary Care Provider [phone] Cody Polk MD Unavailable [phone] Wen Nelson MD Unavailable José Miguel Alva MD Unavailable Drew Martínez MD Unavailable [phone] Lopez Nunez DO Unavailable [phone] Autumn Chapman OD Unavailable [phone] Alcon Camacho MD Unavailable [phone] Tess Brennan MD Unavailable [phone] Tee Moura MD Unavailable [phone] Michel Linda MD Unavailable Verena Crespo MD Unavailable [phone] Unknown, Notinfile Primary Care Provider Unavail able Julian Encarnacion MD Primary Care Provider Encounter Details Date Type Department Care Team (Late st Contact Info) Description 01/16/2017 Orders Only [facility] [address] [place] [address] Valerie Grimaldo MD [address] [place] [address] Diabetes mellitus without complication (CMS/HCC) (Primary Dx) Social History Tobacco Use Types Packs/Day Years Used Date Smoking Tobacco: Never Alcohol Use Standard Drinks/Week Comments No 0 (1 standard drink = 0.6 oz pur e alcohol) Comments Unknown Sex and Gender Information Value Date Recorded Sex Assigned at Not on file Legal Sex Female 11:50 PM SEVERITY OF ILLNESS COORDINATOR Gender Identity Not on file Sexual Orientation Not on file documented as of this encounter Plan of Treatment Scheduled Orders Name Type Priority Associated Diagnoses Orde r Schedule Hemoglobin A1c Lab Routine Diabetes mellitus without complication (CMS/HCC) Expected: 02/04/2017, Expires: 01/16/2018 Microalbumin / creatinine ratio, urine, random Lab Routine Diabetes mellitus without complication (CMS/HCC) Expected: 02/04/2017, Expires: 01/16/2018 Comprehensive metabolic panel Lab Routine Diabetes mellitus without complication (CMS/HCC) Expected: 02/04/2017, Expires: 01/16/2018 Cholesterol, LDL, direct Lab Routine Diabetes mellitus without complication (CMS/HCC) Expected: 02/04/2017, Expires: 01/16/2018 documented as of this encounter Visit Diagnoses Diagnosis Diabetes mellitus without complication (CMS/HCC) (HCC)- Primary Type II or unspecified type diabetes mellitus without mention of complication, not stated as uncontrolled documented in this encounter Care Teams Gis Database Administrator Relationship Specialty Start Date End Date Valerie Grimaldo MD PCP - General 09/27/16 03/16/20 Unknown, Notinfile PCP - General 03/17/20 11/21/20 Julian Encarnacion MD [address] [address] PCP - General Family Medicine 11/22/20 [place] [address] [facility] [address] [place] [address] Pulmonary Disease 02/27/17 Wen Nelson MD [address] [address] Obstetrics and Gynecology 02/27/17 José Miguel Alva MD [address] [facility] [address] [place], [place] [id number] Gynecologic Oncology 02/27/17 Drew Martínez MD [address] [place] [address] Orthopedic Surgery 02/27/17 Lopez Nunez DO [address] [place] [address] Consulting Physician Gastroenterology 04/25/17 Autumn Chapman OD [address] [place] [address] Optometry 04/28/17 [place] [address] [address] [facility] [address] [place], [place] [address] Consulting Physician Cardiology 09/07/17 Tess Brennan MD 2 [facility] [address] [facility] [address] [place] [address] Referring Physician Gastroenterology 09/25/17 Tee Moura MD [address] [facility] [address] [place] [address] Referring Physician Surgery 11/29/17 Michel Linda MD [address] [facility] [address] [place] [address] Referring Physician General Surgery 03/11/19 Verena Crespo MD [address] [facility] [address] [place] [address] Consulting Physician Nephrology 03/13/19 documented as of this encounter
--- OUTSIDE RECORDS SUMMARY | 2024-08-25 07:26 | XMS_ITS | Encounter Summary ---
Author Organization [facility] Address [address] [place] [address] Phone Care Team Providers Care Jewelry Salesperson Name Role Phone Julian Encarnacion MD Primary Care Provider [phone] Travis Torrez MD Primary Care Provider [phone] Carolee Tay APRN, CARPENTRY TEACHER Unavailable Reason for Visit * Reason Comments Medication Refill Encounter Details Date Type Department Care Team (Late st Contact Info) Description 04/05/2021 Refill [facility] - Family Medicine [facility] #2 [place] [address] Julian Encarnacion MD #[address] [address] Medication Refill Social History Tobacco Use Types [...] Telephone Encounter - Julian Encarnacion MD - 04/05/2021 2:11 PM CDT Prescription pending signature * Telephone Encounter - Tori Cameron RN - 04/05/2021 1:35 PM CDT Per [place] PDMP last fill date 02/19/21. Medication failed the protocol, provider to review and approve the medication order if appropriate. Requested Prescriptions Pending Prescriptions Disp Refills acetaminophen-codeine (TYLENOL #3) 300-30 MG Tablet [Pharmacy Med Name: ACETAMINOPHEN/CODEINE 300-30MG TABLET] 30 Tablet 0 Sig: TAKE 1 TABLET BY MOUTH 2 TIMES DAILY NEEDED FOR MODERATE OR MORE SEVERE PAIN. [email or web address] Not Delegated - Analgesics: Opioid Agonist Combinations Failed - 04/05/2021 1:35 PM Failed - This refill cannot be delegated Passed - Valid encounter within last 6 months Past Office Visits Recent Outpatient Visits 1 month ago Arthralgia, unspecified joint [facility] Julian Hines MD 5 months ago Type 2 diabetes mellitus without complication, with long-term current use of insulin ([facility]) [facility] Julian Graham MD 8 months ago Type 2 diabetes mellitus without complication, with long-term current use of insulin ([facility]) [facility] Julian Graham MD 10 months ago Hematemesis, presence of nausea not specified [facility] Julian Graham MD 11 months ago Hematemesis, presence of nausea not specified [facility] Julian Graham MD Upcoming Appointments MANAGER MOBILE - Recent and Past Visits Recent Visits Date Type Provider Dept 02/21/21 Office Visit Julian Encarnacion MD [facility] 10/18/20 Office Visit Julian Encarnacion MD [facility] 07/20/20 Office Visit Julian Encarnacion MD [facility] 06/08/20 Office Visit Julian Encarnacion MD [facility] 05/10/20 Office Visit Julian Encarnacion MD [facility] 03/23/20 Office Visit Julian Encarnacion MD [facility] 02/18/20 Office Visit Aletha Anand, PAC [facility] Showing recent visits within past 460 days with a meds authorizing provider and meeting all other requirements Future Appointments No visits were found meeting these conditions. Showing future appointments within next 90 days with a meds authorizing provider and meeting all other requirements documented in this encounter Plan of Treatment Upcoming Encounters Date Type Department Care Team (Late st Contact Info) Description 08/15/2025 10:00 AM SUPERVISOR INSPECTION Office Visit [facility] - Cardiology [facility] [address] [place] [address] Carolee Tay APRN, CARPENTRY TEACHER [address] [place] [address] documented as of this encounter Visit Diagnoses Diagnosis Arthralgia, unspecified joint documented in this encounter Additional Health Concerns Infection Onset Date Last Indicated Resolved Time COVID - 19 07/20/2024 07/20/2024 07/20/2024 3:10 AM SUPERVISOR INSPECTION Assessment Noted Time PHQ-9 Depression Total Score: 0 04/24/20 10:39 AM CDT documented as of this encounter Care Teams Jewelry Salesperson Relationship Specialty Start Date End Date Julian Encarnacion MD #[address] [address] PCP - General Family Medicine 03/28/20 04/23/22 Travis Torrez MD [address] [place] [address] PCP - General Family Medicine 05/21/22 Carolee Tay APRN, KIM [address] [place] [address] Nurse Practitioner Certified Nurse Practitioner 08/20/24 documented as of this encounter
--- OUTSIDE RECORDS SUMMARY | 2024-08-25 07:26 | XMS_ITS | Encounter Summary ---
Author Organization [facility] Address [address] [place] [address] Phone Care Team Providers Care Adobe Architect Name Role Phone Julian Encarnacion MD Primary Care Provider Travis Torrez MD Primary Care Provider [phone] Carolee Tay APRN, ACCESS REP Unavailable Reason for Visit * Reason Comments Medication Refill Encounter Details Date Type Department Care Team (Late st Contact Info) Description 02/15/2021 Refill [facility] #2 [place] [address] Julian Encarnacion MD [address] [address] Medication Refill Social History Tobacco Use Types [...] encounter Miscellaneous Notes * Telephone Encounter - Kenyetta Moran RMA - 02/19/2021 9:31 AM CDT Scheduled 02/21 , pt states she needs refills now. * Telephone Encounter - Dominique Conway RN - 02/15/2021 4:16 PM CDT Patient needs appointment with PCP * Telephone Encounter - Dominique Conway RN - 02/15/2021 3:47 PM CDT [place] 01/18/21 - last appt 10/18/20 Medication failed the protocol, provider to review and approve the medication order if appropriate. Requested Prescriptions Pending Prescriptions Disp Refills acetaminophen-codeine (TYLENOL #3) 300-30 MG Tablet [Pharmacy Med Name: ACETAMINOPHEN/CODEINE 300-30MG TABLET] 30 Tablet 0 Sig: TAKE 1 TABLET BY MOUTH 2 TIMES DAILY NEEDED FOR MODERATE OR MORE SEVERE PAIN. healthfinch Not Delegated - Analgesics: Opioid Agonist Combinations Failed - 02/15/2021 3:47 PM Failed - This refill cannot be delegated Passed - Valid encounter within last 6 months Past Office Visits Recent Outpatient Visits 4 months ago Type 2 diabetes mellitus without complication, with long-term current use of insulin (HCC) [facility] - Julian Hines MD 7 months ago Type 2 diabetes mellitus without complication, with long-term current use of insulin (HCC) [facility] Julian Graham MD 8 months ago Hematemesis, presence of nausea not specified [facility] Julian Graham MD 9 months ago Hematemesis, presence of nausea not specified [facility] Julian Graham MD 10 months ago Preop cardiovascular exam [facility] Julian Graham MD Upcoming Appointments Future Appointments In 1 week Cristina Garcia, BATTERY ASSEMBLER, ACCESS REP [facility] - Cancer Center Oncology Services, [facility] HAND THERMAL CUTTER - Recent and Past Visits Recent Visits Date Type Provider Dept 10/18/20 Office Visit [facility] 07/20/20 Office Visit Julian Encarnacion MD [facility] 06/08/20 Office Visit Julian Encarnacion MD [facility] 05/10/20 Office Visit Julian Encarnacion MD [facility] 03/23/20 Office Visit [facility] MD [facility] [place] 02/18/20 Office Visit Aletha Anand, CAITLIN [facility] Showing recent visits within past 460 days [...] st Contact Info) Description 08/15/2025 10:00 AM C WINFORMS DEVELOPER Office Visit [facility] - Cardiology [facility] #2 [place] [address] Carolee Tay APRN, ACCESS REP [address] [place] [address] documented as of this encounter Visit Diagnoses Not on filedocumented in this encounter Additional Health Concerns Infection Onset Date Last Indicated Resolved Time COVID - 19 07/20/2024 07/20/2024 07/20/2024 3:1 0 AM C WINFORMS DEVELOPER Assessment Noted Time PHQ-9 Depression Total Score: 0 04/24/20 10:39 AM CDT documented as of this encounter Care Teams Adobe Architect Relationship Specialty Start Date End Date Julian Encarnacion MD #[address] [address] PCP - General Family Medicine 03/28/20 04/23/22 Travis Torrez MD [address] [place] [address] PCP - General Family Medicine 05/21/22 Carolee Tay APRN, ACCESS REP [address] [place] [address] Nurse Practitioner Certified Nurse Practitioner 08/20/24 documented as of this encounter
--- OUTSIDE RECORDS SUMMARY | 2024-08-25 07:26 | XMS_ITS | Encounter Summary ---
Author Organization [facility] Address [address] [place] [address] Phone Care Team Providers Care Research Study Assistant Name Role Phone Julian Encarnacion MD Primary Care Provider [phone] Travis Torrez MD Primary Care Provider [phone] Carolee Tay APRN, ENGINE TESTING SUPERVISOR Unavailable Reason for Visit * Reason Comments Medication Refill Encounter Details Date Type Department Care Team (Late st Contact Info) Description 10/16/2020 Refill [facility] #2 [place] [address] Julian Encarnacion MD #[address] [address] Medication Refill Social History Tobacco Use Types [...] on file Sexual Orientation Not on file COVID-19 Exposure Response Date Recorded In the last month, have you been in contact with someone who was confirmed or suspected to have Coronavirus / COVID-19? No / Unsure 10/18/2020 9:00 AM CDT documented as of this encounter Miscellaneous Notes * Telephone Encounter - Julian Encarnacion MD - 10/17/2020 11:18 AM CDT Prescription pending signature * Telephone Encounter - Dominique Conway RN - 10/17/2020 11:01 AM CDT [place] 09/06/20 Medication failed the protocol, provider to review and approve the medication order if appropriate. Requested Prescriptions Pending Prescriptions Disp Refills acetaminophen-codeine (TYLENOL #3) 300-30 MG Tablet [Pharmacy Med Name: ACETAMINOPHEN/CODEINE 300-30MG TABLET] 30 Tablet 0 Sig: TAKE 1 TABLET BY MOUTH 2 TIMES DAILY NEEDED FOR MODERATE OR MORE SEVERE PAIN. healthfinch Not Delegated - Analgesics: Opioid Agonist Combinations Failed - 10/17/2020 11:00 AM Failed - This refill cannot be delegated Passed - Valid encounter within last 6 months Past Office Visits Recent Outpatient Visits 2 months ago Type 2 diabetes mellitus without complication, with long-term current use of insulin (HCC) [facility] Family [facility] - Julian Hines MD 4 months ago Hematemesis, presence of nausea not specified [facility] Julian Graham MD 5 months ago Hematemesis, presence of nausea not specified [facility] Julian Graham MD 6 months ago Preop cardiovascular exam [facility] Julian Graham MD 8 months ago Coronary artery disease with angina pectoris, unspecified vessel or lesion type, unspecified whether [place] or transplanted heart (HCC) [facility] - Aletha Benson, CAITLIN Upcoming Appointments Future Appointments Tomorrow Julian Encarnacion MD [facility] - [place], [facility] In 6 days Cristina Garcia APN, ENGINE TESTING SUPERVISOR [facility] - [facility] Center Oncology Services, [facility] In [address] [facility] Family [facility] - [facility] CAKE BATTER MIXER - Recent and Past Visits Recent Visits Date Type Provider Dept 07/20/20 Office Visit Julian Encarnacion MD [facility] [place] 06/08/20 Office Visit Julian Encarnacion MD [facility] 05/10/20 Office Visit Julian Encarnacion MD [facility] 03/23/20 Office Visit Julian Encarnacion MD [facility] 02/18/20 [facility] recent visits within past 460 days with a meds authorizing provider and meeting all other requirements Future Appointments Date Type Provider Dept 10/18/20 Appointment Julian Encarnacion MD [facility] Showing future appointments within next 90 days with a meds authorizing provider and meeting all other requirements documented in this encounter Plan of Treatment Upcoming Encounters Date Type Department Care Team (Late st Contact Info) Description 08/15/2025 10:00 AM PRIVATE TUTORS AND TEACHERS Office Visit [facility] - [place] [address] [place] [address] Carolee Tay APRN, ENGINE TESTING SUPERVISOR [address] [place] [address] documented as of this encounter Visit Diagnoses Not on filedocumented in this encounter Additional Health Concerns Infection Onset Date Last Indicated Resolved Time COVID - 19 07/20/2024 07/20/2024 07/20/2024 3:10 AM PRIVATE TUTORS [employer] TEACHERS Assessment Noted Time PHQ-9 Depression Total Score: 0 04/24/20 10:39 AM CDT documented as of this encounter Care Teams Research Study Assistant Relationship Specialty Start Date End Date Julian Encarnacion MD #[address] [address] PCP - General Family Medicine 03/28/20 04/23/22 Travis Torrez MD [address] [place] [address] PCP - General Family Medicine 05/21/22 Carolee aTy APRN, ENGINE TESTING SUPERVISOR [address] [place] [address] Nurse Practitioner Certified Nurse Practitioner 08/20/24 documented as of this encounter
--- OUTSIDE RECORDS SUMMARY | 2024-08-25 07:26 | XMS_ITS | Encounter Summary ---
Author Organization [facility] Address [address] [place] [address] Phone Care Team Providers Care Hair Machine Operator Name Role Phone Julian Encarnacion MD Primary Care Provider [phone] Travis Torrez MD Primary Care Provider [phone] Carolee Tay APRN, ENGINEERING RESEARCH MANAGER Unavailable Reason for Visit * Reason Comments Medication Refill Encounter Details Date Type Department Care Team (Late st Contact Info) Description 01/12/2021 Refill [facility] #2 [place] [address] Julian Encarnacion MD #[address] [address] Medication Refill Social History Tobacco Use Types [...] Telephone Encounter - Julian Encarnacion MD - 01/12/2021 3:34 PM CDT Prescription approved. Please call in * Telephone Encounter - Dominique Conway RN - 01/12/2021 2:21 PM CDT [place] T#3 12/05/20 - follow up 01/17/21 Medication failed the protocol, provider to review and approve the medication order if appropriate. Requested Prescriptions Pending Prescriptions Disp Refills traZODone (DESYREL) 50 MG Tablet [Pharmacy Med Name: TRAZODONE HYDROCHLORIDE 50MG TABLET] 90 Tablet0 Sig: TAKE 1 TABLET BY MOUTH NIGHTLY. Serotonin Modulators (6 Month Refill Only) Protocol Failed - 01/12/2021 2:21 PM Failed - Has an encounter in the past 6 months with a depression or anxiety visit diagnosis Failed - Patient has established therapy with Serotonin Modulators for at least 6 months Passed - Visit with relevant provider in past 6 months or upcoming 90 days Recent Visits Date Type Provider Dept 10/18/20 Office Visit Julian Encarnacion MD [facility] 07/20/20 Office Visit Julian Encarnacion MD [facility] Showing recent visits within past 182 days and meeting all other requirements Future Appointments Date Type Provider Dept 01/17/21 Appointment Julian Encarnacion MD [facility] Showing future appointments within next 90 days and meeting all other requirements Passed - No PRN Use for Trazodone acetaminophen-codeine (TYLENOL #3) 300-30 MG Tablet [Pharmacy Med Name: ACETAMINOPHEN/CODEINE 300-30MG TABLET] 30 Tablet 0 Sig: TAKE 1 TABLET BY MOUTH 2 TIMES DAILY NEEDED FOR MODERATE OR MORE SEVERE PAIN. healthfinch Not Delegated - Analgesics: Opioid Agonist Combinations Failed - 01/12/2021 2:21 PM Failed - This refill cannot be delegated Passed - Valid encounter within last 6 months Past Office Visits Recent Outpatient Visits 2 months ago Type 2 diabetes mellitus without complication, with long-term current use of insulin ([facility]) [facility] - Julian Hines MD 5 months ago Type 2 diabetes mellitus without complication, with long-term current use of insulin ([facility]) [facility] - Julian Hines MD 7 months ago Hematemesis, presence of nausea not specified [facility] Julian Hines MD 8 months ago Hematemesis, presence of nausea not specified [facility] Julian Hines MD 9 months ago Preop cardiovascular exam [facility] Family Medicine Julian Graham MD Upcoming Appointments Future Appointments In 5 days Julian Encarnacion MD [facility] Family [facility], [facility] In 1 month Cristina Garcia APN, KIM [facility] Oncology Services, [facility] ENGINEERING TECHNOLOGY INSTRUCTOR - Recent and Past Visits Recent Visits Date Type Provider Dept 10/18/20 Office Visit Julian Encarnacion MD [facility] [place] 07/20/20 Office Visit Julian Encarnacion MD [facility] [place] 06/08/20 Office Visit [facility] MD [facility] 05/10/20 Office Visit Julian Encarnacion MD [facility] 03/23/20 Office Visit Julian Encarnacion MD [facility] 02/18/20 Office Visit Aletha Anand PAC [facility] Show[facility] recent visits within past 460 days with a meds authorizing provider and meeting all other requirements Future Appointments Date Type Provider Dept 01/17/21 Appointment Julian Encarnacion MD [facility] Showing future appointments within next 90 days with a meds authorizing provider and meeting all other requirements documented in this encounter Plan of Treatment Upcoming Encounters Date Type Department Care Team (Late st Contact Info) Description 08/15/2025 10:00 AM FIRE MANAGEMENT SPECIALIST [facility] - Cardiology - [place] [address]2 [place] [address] Carolee Tay APRN, KIM [address]2 [facility] [place] [address] documented as of this encounter Visit Diagnoses Not on filedocumented in this encounter Additional Health Concerns Infection Onset Date Last Indicated Resolved Time COVID - 19 07/20/2024 07/20/2024 07/20/2024 3:10 AM FIRE MANAGEMENT SPECIALIST Assessment Noted Time PHQ-9 Depression Total Score: 0 04/24/20 10:39 AM CDT documented as of this encounter Care Teams Hair Machine Operator Relationship Specialty Start Date End Date Julian Encarnacion MD [address] [place] [address] [address] PCP - General Family Medicine 03/28/20 04/23/22 Travis Torrez MD [address] [place] [address] PCP - General Family Medicine 05/21/22 Carolee Tay APRN, KIM [address]2 [place] [address] Nurse Practitioner Certified Nurse Practitioner 08/20/24 documented as of this encounter
--- OUTSIDE RECORDS SUMMARY | 2024-08-25 07:26 | XMS_ITS | Encounter Summary ---
Author Organization [facility] Address [address] [place] [address] Phone Care Team Providers Care Game Developer Name Role Phone Valerie Grimaldo MD Primary Care Provider [phone] Cody Polk MD Unavailable [phone] Wen Nelson MD Unavailable [phone] José Miguel Alva MD Unavailable [phone] Drew Martínez MD Unavailable [phone] Lopez Nunez DO Unavailable [phone] Autumn Chapman OD Unavailable [phone] Alcon Camacho MD Unavailable [phone] Tess Brennan MD Unavailable [phone] Tee Moura MD Unavailable [phone] Michel Linda MD Unavailable Verena Crespo MD Unavailable [phone] Unknown, Notinfile Primary Care Provider Unavail able Julian Encarnacion MD Primary Care Provider Encounter Details Date Type Department Care Team (Late st Contact Info) Description 08/22/2017 Orders Only [facility] Provider, MD [place] [address] [place] [address] Social History Tobacco Use Types Packs/Day Years Used Date Smoking Tobacco: Never Smokeless Tobacco: Never Alcohol Use Standard Drinks/Week Comments No 0 (1 standard drink = 0.6 oz pur e alcohol) Comments Unknown Sex and Gender Information Value Date Recorded Sex Assigned at Not on file Legal Sex Female 11:50 PM BRICK AND BLOCKER AID LABOR Gender Identity Not on file Sexual Orientation Not on file documented as of this encounter Plan of Treatment Not on file documented as of this encounter Procedures Procedure Name Priority Date/Time Associated Diagnosis Comments DISCHARGE LABORATORY CUMULATIVE REPORT 08/22/2017 12:00 AM BRICK AND BLOCKER AID LABOR documented in this encounter Results * DISCHARGE LABORATORY CUMULATIVE REPORT (08/22/2017 12:00 AM BRICK AND BLOCKER AID LABOR) Narrative 08/22/2017 12:00 AM BRICK AND BLOCKER AID LABOR Ordered by an unspecified provider. us Historical Provider LAB BLOOD ORDERABLES Soledad l Result documented in this encounter Visit Diagnoses Not on filedocumented in this encounter Care Teams Game Developer Relationship Specialty Start Date End Date Valerie Grimaldo MD PCP - General 09/27/16 03/16/20 Unknown, Notinfile PCP - General 03/17/20 11/21/20 Julian Encarnacion MD 2 [facility] [address] [place] [address] PCP - General Family Medicine 11/22/20 [place] [address] [facility] [address] [place] [address] Pulmonary Disease 02/27/17 Wen Nelson MD [address] [place] [address] Obstetrics and Gynecology 02/27/17 José Miguel Alva MD [address] [facility] [address] [place] [address] Gynecologic Oncology 02/27/17 Drew Martínez MD [address] [facility] [address] [place] [address] Orthopedic Surgery 02/27/17 Lopez Nunez DO [address] [address] [place] [address] Consulting Physician Gastroenterology 04/25/17 Autumn Chapman OD [address] [place] [address] Optometry 04/28/17 [place] [address] [facility] [address] [place] [address] Consulting Physician Cardiology 09/07/17 Tess Brennan MD [address] [facility] [address] [address] Referring Physician Gastroenterology 09/25/17 Tee Moura MD [address] [facility] [address] [address] Referring Physician Surgery 11/29/17 Michel Linda MD [address] [facility] [address] [address] Referring Physician General Surgery 03/11/19 Verena Crespo MD [address] [facility] [address] [address] Consulting Physician Nephrology 03/13/19 documented as of this encounter
--- OUTSIDE RECORDS SUMMARY | 2024-08-25 07:26 | XMS_ITS | Encounter Summary ---
Author Organization [facility] Address [address] [place] [address] Phone Care Team Providers Care Slip Laster Name Role Phone Julian Encarnacion MD Primary Care Provider Travis Torrez MD Primary Care Provider Carolee Tay APRN, DIRECTOR ORANGE Unavailable Reason for Visit * Reason Comments Medication Refill Encounter Details Date Type Department Care Team (Late st Contact Info) Description 11/14/2020 Refill [facility] Family [facility] #2 [place] [address] Julian Encarnacion MD #[address] [address] Medication Refill Social History Tobacco Use Types [...] have Coronavirus / COVID-19? No / Unsure 10/25/2020 12:45 PM CDT documented as of this encounter Miscellaneous Notes * Telephone Encounter - Julian Encarnacion MD - 11/15/2020 10:31 AM CDT Prescription approved. Please call in * Telephone Encounter - Dominique Conway RN - 11/15/2020 10:15 AM CDT Medication failed the protocol, provider to review and approve the medication order if appropriate. Requested Prescriptions Pending Prescriptions Disp Refills metFORMIN (GLUCOPHAGE-XR) 500 MG TABLET SR 24 HR [Pharmacy Med Name: METFORMIN HYDROCHLORIDE ER 500MG ER TABLET ER 24HR] 90 Tablet 3 Sig: TAKE 1 TABLET BY MOUTH 3 TIMES DAILY. THIS RX IS FOR METFORMIN SR. Biguanides Protocol Failed - 11/14/2020 1:54 PM Failed - GFR in normal range Passed - Normal creatinine in past 6 months CREATININE - POCT Date Value Ref Range Status 08/04/2020 1.0 0.6 - 1.3 mg/dL Final Passed - Visit with relevant provider in past 6 months or upcoming 90 days Recent Visits Date Type Provider Dept 10/18/20 Office Visit Julian Encarnacion MD [facility] [place] 07/20/20 Office Visit [facility] [place] 06/08/20 Office Visit Julian Encarnacion MD [facility] [place] Showing recent visits within past 182 days and meeting all other requirements Future Appointments Date Type Provider Dept 01/17/21 Appointment Julian Encarnacion MD [facility] [place] Showing future appointments within next 90 days and meeting all other requirements Passed - HgA1C on record in past 6 months HGB-A1C Date Value Ref Range Status 10/18/2020 7.0 % Final documented in this encounter Plan of Treatment Upcoming Encounters Date Type Department Care Team (Late st Contact Info) Description 08/15/2025 10:00 AM HOT MILL SUPERVISOR Office Visit [facility] - Cardiology - [place] #2 [place] [address] Carolee Tay APRN, DIRECTOR [place] [address] [place] [address] documented as of this encounter Visit Diagnoses Not on filedocumented in this encounter Additional Health Concerns Infection Onset Date Last Indicated Resolved Time COVID - 19 07/20/2024 07/20/2024 07/20/2024 3:10 AM HOT MILL SUPERVISOR Assessment Noted Time PHQ-9 Depression Total Score: 0 04/24/20 20 10:39 AM CDT documented as of this encounter Care Teams Slip Laster Relationship Specialty Start Date End Date Julian Encarnacion MD #[address] [address] PCP - General Family Medicine 03/28/20 04/23/22 Travis Torrez MD [address] [place] [address] PCP - General Family Medicine 05/21/22 Carolee Tay APRN, DIRECTOR [place] [address] [place] [address] Nurse Practitioner Certified Nurse Practitioner 08/20/24 documented as of this encounter
--- OUTSIDE RECORDS SUMMARY | 2024-08-25 07:26 | XMS_ITS | Encounter Summary ---
Author Organization [facility] Address [address] [place] [address] Phone Care Team Providers Care Director Emergency Name Role Phone Julian Encarnacion MD Primary Care Provider Travis Torrez MD Primary Care Provider [phone] Carolee Tay APRN, DIGITAL MARKETING MANAGER Unavailable Reason for Visit * Reason Comments Medication Refill Encounter Details Date Type Department Care Team (Late st Contact Info) Description 06/20/2021 Refill [facility] #2 [place] [address] Julian Encarnacion MD #[address] [address] Medication Refill Social History Tobacco Use Types [...] Telephone Encounter - Kenyetta Moran RMA - 06/27/2021 10:55 AM PET HANDLER Left voicemail HANDLER * Telephone Encounter - Dominique Conway RN - 06/26/2021 10:52 AM CST Patient needs appointment HANDLER * Telephone Encounter - Carola Patiño MA - 06/25/2021 3:43 PM PET HANDLER Message left on Medication refill voice mail: Patient would like to know why the doctor has refusedher pain medication (Ty#3) ? See previous message from 06/21/21 . Please call patient @[phone] HANDLER * Telephone Encounter - Kenyetta Moran RMA - 06/21/2021 11:19 AM PET HANDLER Left voicemiail HANDLER * Telephone Encounter - Dominique Conway RN - 06/20/2021 3:56 PM CST PCP requests patient appointment HANDLER * Telephone Encounter - Dominique Conway RN - 06/20/2021 3:46 PM CST PDMP 05/17/21 Medication failed the protocol, provider to review and approve the medication order if appropriate. Requested Prescriptions Pending Prescriptions Disp Refills acetaminophen-codeine (TYLENOL #3) 300-30 MG Tablet [Pharmacy Med Name: ACETAMINOPHEN/CODEINE 300-30MG TABLET] 30 Tablet 0 Sig: TAKE 1 TABLET BY MOUTH 2 TIMES DAILY NEEDED FOR MODERATE OR MORE SEVERE PAIN. Not Delegated - Opioid Combinations Protocol Failed - 06/20/2021 3:46 PM Failed - This refill cannot be delegated Passed - Visit with relevant provider in past 12 months or upcoming 90 days Recent Visits Date Type Provider Dept 02/21/21 Office Visit Julian Encarnacion MD [facility] 10/18/20 [facility] 07/20/20 Office Visit Julian Encarnacion MD [facility] [place] Showing recent visits within past 365 days and meeting all other requirements Future Appointments No visits were found meeting these conditions. Showing future appointments within next 90 days and meeting all other requirements HANDLER documented in this encounter Plan of Treatment Upcoming Encounters Date Type Department Care Team (Late st Contact Info) Description 08/15/2025 10:00 AM PET HANDLER Office Visit [facility] - Cardiology - [place] #2 [place] [address] Carolee Tay APRN, DIGITAL MARKETING MANAGER [address]2 [place] [address] documented as of this encounter Visit Diagnoses Diagnosis Arthralgia, unspecified joint documented in this encounter Additional Health Concerns Infection Onset Date Last Indicated Resolved Time COVID - 19 07/20/2024 07/20/2024 07/20/2024 3:10 AM PET HANDLER Assessment Noted Time PHQ-9 Depression Total Score: 0 04/24/20 20 10:39 AM CDT documented as of this encounter Care Teams Director Emergency Relationship Specialty Start Date End Date Julian Encarnacion MD #[address] [address] PCP - General Family Medicine 03/28/20 04/23/22 Travis Torrez MD [address] [place] [address] PCP - General Family Medicine 05/21/22 Carolee Tay APRN, DIGITAL MARKETING MANAGER [address]2 [place] [address] Nurse Practitioner Certified Nurse Practitioner 08/20/24 documented as of this encounter
--- OUTSIDE RECORDS SUMMARY | 2024-08-25 07:26 | XMS_ITS | Encounter Summary ---
Author Organization [facility] Address [address] [place] [address] Phone Care Team Providers Care Information Technology Auditor Name Role Phone Valerie Grimaldo MD Primary Care Provider + [phone] Cody Polk MD Unavailable Wen Nelson MD Unavailable [phone] José Miguel Alva MD Unavailable Drew Martínez MD Unavailable [phone] Lopez Nunez DO Unavailable [phone] Autumn Chapman OD Unavailable [phone] Alcon Camacho MD Unavailable [phone] Tess Brennan MD Unavailable [phone] Tee Moura MD Unavailable [phone] Michel Linda MD Unavailable Verena Crespo MD Unavailable [phone] Unknown, Notinfile Primary Care Provider Unavail able Julian Encarnacion MD Primary Care Provider Encounter Details Date Type Department Care Team (Late st Contact Info) Description 12/20/2016 Orders Only [facility] [address] [place] [address] Lisa Romano LPN Social History Tobacco Use Types Packs/Day Years Used Date Smoking Tobacco: Never Alcohol Use Standard Drinks/Week Comments No 0 (1 standard drink = 0.6 oz pur e alcohol) Comments Unknown Sex and Gender Information Value Date Recorded Sex Assigned at Not on file Legal Sex Female 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 Gender Identity Not on file Sexual Orientation Not on file documented as of this encounter Plan of Treatment Not on file documented as of this encounter Visit Diagnoses Not on filedocumented in this encounter Care Teams Information Technology Auditor Relationship Specialty Start Date End Date Valerie Grimaldo MD PCP - General 09/27/16 03/16/20 Unknown, Notinfile PCP - General 03/17/20 11/21/20 Julian Encarnacion MD 2 [facility] [address] [place] [address] PCP - General Family Medicine 11/22/20 [place] [address] [facility] [address] [place] [address] Pulmonary Disease 02/27/17 Wen Nelson MD [address] [place] [address] Obstetrics and Gynecology 02/27/17 José Miguel Alva MD [address] [place] [address] Gynecologic Oncology 02/27/17 Drew Martínez MD [address] [place] [address] [place] [address] Orthopedic Surgery 02/27/17 Lopez Nunez DO [address] [address] Consulting Physician Gastroenterology 04/25/17 Autumn Chapman OD 406 [place] [address] Optometry 04/28/17 [place] [address] [facility] [address] [place] [address] Consulting Physician Cardiology 09/07/17 Tess Brennan MD [address] [facility] [address] [address] Referring Physician Gastroenterology 09/25/17 Tee Moura MD [address] [facility] [address] [address] Referring Physician Surgery 11/29/17 Michel Linda MD 2 [facility] [address] [address] Referring Physician General Surgery 03/11/19 Verena Crespo MD 2 [facility] [address] [address] Consulting Physician Nephrology 03/13/19 documented as of this encounter
--- OUTSIDE RECORDS SUMMARY | 2024-08-25 07:26 | XMS_ITS | Encounter Summary ---
Author Organization [facility] Address [address] [place] [address] Phone Care Team Providers Care Tie Presser Name Role Phone Travis Torrez MD Primary Care Provider [phone] Carolee Tay APRN, WELDER OPERATOR Unavailable Reason for Visit * Reason Comments Medication Refill Encounter Details Date Type Department Care Team (Late Contact Info) Description 03/06/2023 Refill [facility] - Family Medicine [facility] #2 [place] [address] Julian Encarnacion MD #[address] [address] Medication Refill Social History Tobacco Use Types [...] st Contact Info) Description 08/15/2025 10:00 AM MANAGER ENGLISH Office Visit [facility] - Cardiology [facility] #[address] [place] [address] Carolee Tay APRN, WELDER OPERATOR [address] [place] [address] documented as of this encounter Visit Diagnoses Not on filedocumented in this encounter Additional Health Concerns Infection Onset Date Last Indicated Resolved Time COVID - 19 07/20/2024 07/20/2024 07/20/2024 3:10 AM MANAGER ENGLISH Assessment Noted Time PHQ-9 Depression Total Score: 0 04/24/20 10:39 AM CDT documented as of this encounter Care Teams Tie Presser Relationship Specialty Start Date End Date Travis Torrez MD [address] [place] [address] PCP - General Family Medicine 05/21/22 Carolee Tay APRN, WELDER OPERATOR [address] [place] [address] Nurse Practitioner Certified Nurse Practitioner 08/20/24 documented as of this encounter
--- OUTSIDE RECORDS SUMMARY | 2024-08-25 07:26 | XMS_ITS | Encounter Summary ---
Author Organization [facility] Address [address] [place] [address] Phone Care Team Providers Care Logistics Research Engineer Name Role Phone Valerie Grimaldo MD Primary Care Provider + [phone] Cody Polk MD Unavailable [phone] Wen Nelson MD Unavailable José Miguel Alva MD Unavailable [phone] Drew Martínez MD Unavailable [phone] Lopez Nunez DO Unavailable [phone] Autumn Chapman OD Unavailable [phone] Alcon Camacho MD Unavailable [phone] Tess Brennan MD Unavailable [phone] Tee Moura MD Unavailable [phone] Michel Linda MD Unavailable Verena Crespo MD Unavailable [phone] Unknown, Notinfile Primary Care Provider Unavail able Julian Encarnacion MD Primary Care Provider Encounter Details Date Type Department Care Team (Late st Contact Info) Description 09/05/2017 Orders Only [facility] Provider, MD Tayler [address] [place] [address] Social History Tobacco Use Types Packs/Day Years Used Date Smoking Tobacco: Never Smokeless Tobacco: Never Alcohol Use Standard Drinks/Week Comments No 0 (1 standard drink = 0.6 oz pur e alcohol) Comments No Sex and Gender Information Value Date Recorded Sex Assigned at Not on file 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 us Historical Provider LAB BLOOD ORDERABLES Soledad l Result documented in this encounter Visit Diagnoses Not on filedocumented in this encounter Care Teams Logistics Research Engineer Relationship Specialty Start Date End Date Valerie Grimaldo MD PCP - General 09/27/16 03/16/20 Unknown, Notinfile PCP - General 03/17/20 11/21/20 Julian Encarnacion MD 2 [facility] [address] [place] [address] PCP - General Family Medicine 11/22/20 [place] [address] [facility] [address] [place] [address] Pulmonary Disease 02/27/17 Wen Nelson MD [address] [address] Obstetrics and Gynecology 02/27/17 José Miguel Alva MD [address] [facility] [address] [place] [address] Gynecologic Oncology 02/27/17 Drew Martínez MD [address] [facility] [address] [place] [address] Orthopedic Surgery 02/27/17 Lopez Nunez DO [address] [address] [place] [address] Consulting Physician Gastroenterology 04/25/17 Autumn Chapman OD [address] [place] [address] Optometry 04/28/17 [place] [address] [facility] [address] [place] [address] Consulting Physician Cardiology 09/07/17 Tess Brennan MD [address] [facility] [address] [address] Referring Physician Gastroenterology 09/25/17 Tee Moura MD [address] [facility] [address] [address] Referring Physician Surgery 11/29/17 Michel Linda MD [address] [facility] [address] [address] Referring Physician General Surgery 03/11/19 Verena Crespo MD [address] [facility] [address] [address] Consulting Physician Nephrology 03/13/19 documented as of this encounter
--- OUTSIDE RECORDS SUMMARY | 2024-08-25 07:26 | XMS_ITS | Encounter Summary ---
Author Organization [facility] Address [address] [place] [address] Phone Care Team Providers Care Executive Community Planning Name Role Phone Julian Encarnacion MD Primary Care Provider [phone] Travis Torrez MD Primary Care Provider [phone] Carolee Tay APRN, SALES & SERVICE ASSOCIATE Unavailable Reason for Visit * Reason Comments Medication Refill Encounter Details Date Type Department Care Team (Late st Contact Info) Description 12/04/2020 Refill [facility] - Family [facility] #2 [place] [address] Julian Encarnacion MD #[address] [address] Medication Refill Social History Tobacco Use Types [...] Telephone Encounter - Julian Encarnacion MD - 12/05/2020 11:21 AM CDT Prescription pending signature * Telephone Encounter - Dominique Conway RN - 12/05/2020 11:16 AM CDT [place] PDMP 10/17/20 Medication failed the protocol, provider to review and approve the medication order if appropriate. Requested Prescriptions Pending Prescriptions Disp Refills acetaminophen-codeine (TYLENOL #3) 300-30 MG Tablet [Pharmacy Med Name: ACETAMINOPHEN/CODEINE 300-30MG TABLET] 30 Tablet 0 Sig: TAKE 1 TABLET BY MOUTH 2 TIMES DAILY NEEDED FOR MODERATE OR MORE SEVERE PAIN. [facility] Not Delegated - Analgesics: Opioid Agonist Combinations Failed - 12/05/2020 11:16 AM Failed - This refill cannot be delegated Passed - Valid encounter within last 6 months Past Office Visits Recent Outpatient Visits 1 month ago Type 2 diabetes mellitus without complication, with long-term current use of insulin ([facility]) [facility] Julian Hines MD 4 months ago Type 2 diabetes mellitus without complication, with long-term current use of insulin ([facility]) [facility] Julian Graham MD 6 months ago Hematemesis, presence of nausea not specified [facility] Julian Graham MD 6 months ago Hematemesis, presence of nausea not specified [facility] Julian Graham MD 8 months ago Preop cardiovascular exam [facility] Julian Graham MD Upcoming Appointments Future Appointments In 1 month Julian Encarnacion MD [facility] In 2 months Cristina Garcia APN, SALES & SERVICE ASSOCIATE [facility] Oncology Services, [facility] DIRECTOR OF DIRECT MARKETING - Recent and Past Visits Recent Visits Date Type Provider Dept 10/18/20 Office Visit Julian Encarnacion MD [facility] 07/20/20 Office Visit Julian Encarnacion MD [facility] 06/08/20 Office Visit Julian Encarnacion MD [facility] 05/10/20 Office Visit Julian Encarnacion MD [facility] 03/23/20 Office Visit Julian Encarnacion MD [facility] [place] 02/18/20 Office Visit Aletha Anand PAC [facility] Showing recent visits within past 460 days with a meds authorizing provider and meeting all other requirements Future Appointments Date Type Provider Dept 01/17/21 Appointment Julian Encarnacion MD [facility] [place] Showing future appointments within next 90 days with a meds authorizing provider and meeting all other requirements documented in this encounter Plan of Treatment Upcoming Encounters Date Type Department Care Team (Late st Contact Info) Description 08/15/2025 10:00 AM RADIOTELEGRAPHER Office Visit [facility] - Cardiology - [place] #2 [place] [address] Carolee Tay APRN, SALES & SERVICE ASSOCIATE #2 [place] [address] documented as of this encounter Visit Diagnoses Not on filedocumented in this encounter Additional Health Concerns Infection Onset Date Last Indicated Resolved Time COVID - 19 07/20/2024 07/20/2024 07/20/2024 3:10 AM RADIOTELEGRAPHER Assessment Noted Time PHQ-9 Depression Total Score: 0 04/24/20 20 10:39 AM CDT documented as of this encounter Care Teams Executive Community Planning Relationship Specialty Start Date End Date Julian Encarnacion MD #[address] [address] PCP - General Family Medicine 03/28/20 04/23/22 Travis Torrez MD [address] [place] [address] PCP - General Family Medicine 05/21/22 Carolee Tay APRN, SALES & SERVICE ASSOCIATE [address] [place] [address] Nurse Practitioner Certified Nurse Practitioner 08/20/24 documented as of this encounter
--- OUTSIDE RECORDS SUMMARY | 2024-08-25 07:26 | XMS_ITS | Encounter Summary ---
Author Organization [facility] Address [address] [place] [address] Phone Care Team Providers Care Point Of Sale Associate Name Role Phone Julian Encarnacion MD Primary Care Provider Travis Torrez MD Primary Care Provider [phone] Carolee Tay APRN, POCKET OPERATOR Unavailable Reason for Visit * Reason Comments Medication Refill Encounter Details Date Type Department Care Team (Late st Contact Info) Description 08/06/2021 Refill [facility] - [facility] #2 [place] [address] Julian Encarnacion MD #[address] [address] Medication Refill Social History Tobacco Use Types [...] encounter Miscellaneous Notes * Telephone Encounter - Autumn Patino RN - 08/07/2021 2:23 PM GANG BOSS Patient is not wanting an appointment, just wanted enough medication until she could see her new Dr. BOSS * Telephone Encounter - Kenyetta Moran RMA - 08/07/2021 2:13 PM GANG BOSS Left voicemail BOSS * Telephone Encounter - Dominique Conway RN - 08/07/2021 10:38 AM CST Provider requests patient appointment BOSS * Telephone Encounter - Dominique Conway RN - 08/07/2021 10:12 AM CST Medication failed the protocol, provider to review and approve the medication order if appropriate. Requested Prescriptions Pending Prescriptions Disp Refills metFORMIN (GLUCOPHAGE-XR) 500 MG TABLET SR 24 HR [Pharmacy Med Name: METFORMIN HYDROCHLORIDE ER 500MG ER TABLET ER 24HR] 90 Tablet 3 Sig: TAKE 1 TABLET BY MOUTH 3 TIMES DAILY. THIS RX IS FOR METFORMIN SR. Biguanides Protocol Failed - 08/06/2021 9:34 AM Failed - HgA1C on record in past 6 months HGB-A1C Date Value Ref Range Status 10/18/2020 7.0 % Final Failed - GFR on record in past 6 months GFR, EST. NONAFRICAN Date Value Ref Range Status 05/04/2020 35 (L) >=60 Final Passed - Visit with relevant provider in past 6 months or upcoming 90 days Recent Visits Date Type Provider Dept 02/21/21 Office Visit Julian Encarnacion MD [facility] [place] Showing recent visits within past 182 days and meeting all other requirements Future Appointments No visits were found meeting these conditions. Showing future appointments within next 90 days and meeting all other requirements BOSS documented in this encounter Plan of Treatment Upcoming Encounters Date Type Department Care Team (Late st Contact Info) Description 08/15/2025 10:00 AM GANG BOSS Office Visit [facility] - Cardiology - [place] #2 [place] [address] Carolee Tay APRN, KIM [address] [place] [address] documented as of this encounter Visit Diagnoses Not on filedocumented in this encounter Additional Health Concerns Infection Onset Date Last Indicated Resolved Time COVID - 19 07/20/2024 07/20/2024 07/20/2024 3:10 AM GANG BOSS Assessment Noted Time PHQ-9 Depression Total Score: 0 04/24/20 10:39 AM CDT documented as of this encounter Care Teams Point Of Sale Associate Relationship Specialty Start Date End Date Julian Encarnacion MD #[address] [address] PCP - General Family Medicine 03/28/20 04/23/22 Travis Torrez MD [address] [place] [address] PCP - General Family Medicine 05/21/22 Carolee Tay APRN, KIM [address] [place] [address] Nurse Practitioner Certified Nurse Practitioner 08/20/24 documented as of this encounter
--- OUTSIDE RECORDS SUMMARY | 2024-08-25 07:26 | XMS_ITS | Encounter Summary ---
Author Organization [facility] Address [address] [place] [address] Phone Care Team Providers Care Senior Mechanical Project Engineer Name Role Phone Valerie Grimaldo MD Primary Care Provider + [phone] Cody Polk MD Unavailable Wen Nelson MD Unavailable José Miguel Alva MD Unavailable Drew Martínez MD Unavailable [phone] Lopez Nunez DO Unavailable [phone] Autumn Chapman OD Unavailable [phone] Alcon Camacho MD Unavailable [phone] Tess Brennan MD Unavailable [phone] Tee Moura MD Unavailable [phone] Michel Linda MD Unavailable Verena Crespo MD Unavailable [phone] Unknown, Notinfile Primary Care Provider Unavail able Julian Encarnacion MD Primary Care Provider Encounter Details Date Type Department Care Team (Late st Contact Info) Description 09/05/2017 Orders Only [facility] [address] [place] [address] Valerie Grimaldo MD [address] [place] [address] Social History Tobacco Use Types Packs/Day Years Used Date Smoking Tobacco: Never Smokeless Tobacco: Never Alcohol Use Standard Drinks/Week Comments No 0 (1 standard drink = 0.6 oz pur e alcohol) Comments No Sex and Gender Information Value Date Recorded Sex Assigned at Not on file Legal Sex Female 11:50 PM PLASTICS HEAT WELDER Gender Identity Not on file Sexual Orientation Not on file documented as of this encounter Plan of Treatment Not on file documented as of this encounter Procedures Procedure Name Priority Date/Time Associated Diagnosis Comments SCAN - RADIOLOGY/IMAGING 09/05/2017 10:47 AM PLASTICS HEAT WELDER documented in this encounter Results * SCAN - RADIOLOGY/IMAGING (09/05/2017 10:47 AM PLASTICS HEAT WELDER) Anatomical Region Laterality Modality Other Valerie Grimaldo MD Final Resu lt documented in this encounter Visit Diagnoses Not on filedocumented in this encounter Care Teams Senior Mechanical Project Engineer Relationship Specialty Start Date End Date Valerie Grimaldo MD PCP - General 09/27/16 03/16/20 Unknown, Notinfile PCP - General 03/17/20 11/21/20 Julian Encarnacion MD 2 [facility] [address] [place] [address] PCP - General Family Medicine 11/22/20 [place] [address] [facility] [address] [place] [address] Pulmonary Disease 02/27/17 Wen Nelson MD [address] [place] [address] Obstetrics and Gynecology 02/27/17 José Miguel Alva MD [address] [facility] [address] [place], [place] [address] Gynecologic Oncology 02/27/17 Drew Martínez MD [address] [address] [place] [address] Orthopedic Surgery 02/27/17 Lopez Nunez DO [address] [place] [address] Consulting Physician Gastroenterology 04/25/17 Autumn Chapman OD 406 [place] [address] Optometry 04/28/17 [place] [address] [facility] [address] [place] [address] Consulting Physician Cardiology 09/07/17 Tess Brennan MD [address] [facility] [place] [address] [address] Referring Physician Gastroenterology 09/25/17 Tee Moura MD [address] [facility] [address] [address] Referring Physician Surgery 11/29/17 Michel Linda MD 2 [facility] [place] [address] [address] Referring Physician General Surgery 03/11/19 Verena Crespo MD [address] [facility] [address] [address] Consulting Physician Nephrology 03/13/19 documented as of this encounter
--- OUTSIDE RECORDS SUMMARY | 2024-08-25 07:27 | XMS_ITS | Encounter Summary ---
Author Organization [facility] Address [address] [place] [address] Phone Care Team Providers Care Last Greaser Name Role Phone Valerie Grimaldo MD Primary Care Provider + [phone] Cody Polk MD Unavailable [phone] Wen Nelson MD Unavailable José Miguel Alva MD Unavailable +[phone] Drew Martínez MD Unavailable +[phone] Lopez Nunez DO Unavailable [phone] Autumn Chapman OD Unavailable [phone] Alcon Camacho MD Unavailable +[phone] Tess Brennan MD Unavailable [phone] Tee Moura MD Unavailable [phone] Michel Linda MD Unavailable Verena Crespo MD Unavailable [phone] Unknown, Notinfile Primary Care Provider Unavail able Julian Encarnacion MD Primary Care Provider [phone] Encounter Details Date Type Department Care Team (Late st Contact Info) Description 09/08/[address] [facility] Provider, MD Tayler [address] [place] [address] Social History Tobacco Use Types Packs/Day Years Used Date Smoking Tobacco: Never Smokeless Tobacco: Never Alcohol Use Standard Drinks/Week Comments No 0 (1 standard drink = 0.6 oz pur e alcohol) Comments No Sex and Gender Information Value Date Recorded Sex Assigned at Not on file Legal Sex Female 11:50 PM EDITORIAL CLERK Gender Identity Not on file Sexual Orientation Not on file documented as of this encounter Plan of Treatment Not on file documented as of this encounter Procedures Procedure Name Priority Date/Time Associated Diagnosis Comments DISCHARGE LABORATORY CUMULATIVE REPORT 09/08/2017 12:00 AM CDT documented in this encounter Results * DISCHARGE LABORATORY CUMULATIVE REPORT (09/08/2017 12:00 AM CDT) Narrative 09/08/2017 12:00 AM CDT Ordered by an unspecified provider. Historical Provider LAB BLOOD ORDERABLES Soledad l Result documented in this encounter Visit Diagnoses Not on filedocumented in this encounter Care Teams Last Greaser Relationship Specialty Start Date End Date Valerie Grimaldo MD PCP - General 09/27/16 03/16/20 Unknown, Notinfile PCP - General 03/17/20 11/21/20 Julian Encarnacion MD [address] [address] PCP - General Family Medicine 11/22/[address] [place] [address] [facility] [address] [place] [address] Pulmonary Disease 02/27/17 Wen Nelson MD [address] [place] [address] Obstetrics and Gynecology 02/27/17 José Miguel Alva MD [address] [facility] [address] [place] [address] Gynecologic Oncology 02/27/17 Drew Martínez MD [address] [place] [address] Orthopedic Surgery 02/27/17 Lopez Nunez DO [address] [place] [address] Consulting Physician Gastroenterology 04/25/17 Autumn Chapman OD [address] [place] [address] Optometry 04/28/[address] [place] [address] [facility] [address] [place] [address] Consulting Physician Cardiology 09/07/17 Tess Brennan MD [address] [facility] [address] [address] Referring Physician Gastroenterology 09/25/17 Tee Moura MD [address] [address] Referring Physician Surgery 11/29/17 Michel Linda MD 2 [facility] [address] [address] Referring Physician General Surgery 03/11/19 Verena Crespo MD [address] [place] [address] [address] Consulting Physician Nephrology 03/13/19 documented as of this encounter
--- OUTSIDE RECORDS SUMMARY | 2024-08-25 07:27 | XMS_ITS | Encounter Summary ---
Author Organization [facility] Address [address] [place] [address] Phone Care Team Providers Care Precision Instrument And Tool Maker Name Role Phone Valerie Grimaldo MD Primary Care Provider + [phone] Cody Polk MD Unavailable [phone] Wen Nelson MD Unavailable José Miguel Alva MD Unavailable +[phone] Drew Martínez MD Unavailable [phone] Lopez Nunez DO Unavailable [phone] Autumn Chapman OD Unavailable [phone] Alcon Camacho MD Unavailable [phone] Tess Brennan MD Unavailable [phone] Tee Moura MD Unavailable [phone] Michel Linda MD Unavailable Verena Crespo MD Unavailable [phone] Unknown, Notinfile Primary Care Provider Unavail able Julian Encarnacion MD Primary Care Provider Encounter Details Date Type Department Care Team (Late st Contact Info) Description 09/15/2017 Orders Only [facility] Provider, MD Tayler [address] [place] [address] Social History Tobacco Use Types Packs/Day Years Used Date Smoking Tobacco: Never Smokeless Tobacco: Never Alcohol Use Standard Drinks/Week Comments No 0 (1 standard drink = 0.6 oz pur e alcohol) Comments No Sex and Gender Information Value Date Recorded Sex Assigned at Not on file Legal Sex Female 11:50 PM MANAGER PROGRAM Gender Identity Not on file Sexual Orientation Not on file Occupation Industry Job Start Date Job End Date Retired Not on file Not on file Not on file documented as of this encounter Plan of Treatment Not on file documented as of this encounter Procedures Procedure Name Priority Date/Time Associated Diagnosis Comments DISCHARGE LABORATORY CUMULATIVE REPORT 09/15/2017 12:00 AM CDT CYTOLOGY 09/15/2017 12:00 AM CDT documented in this encounter Results * CYTOLOGY (09/15/2017 12:00 AM CDT) Narrative 09/15/2017 12:00 AM CDT Ordered by an unspecified provider. Historical Provider LAB CYTOLOGY ORDERABLES F inal Result * DISCHARGE LABORATORY CUMULATIVE REPORT (09/15/2017 12:00 AM CDT) Narrative 09/15/2017 12:00 AM CDT Ordered by an unspecified provider. Historical Provider MD LAB BLOOD ORDERABLES Soledad l Result documented in this encounter Visit Diagnoses Not on filedocumented in this encounter Care Teams Precision Instrument And Tool Maker Relationship Specialty Start Date End Date Valerie Grimaldo MD PCP - General 09/27/16 03/16/20 Unknown, Notinfile PCP - General 03/17/20 11/21/20 Julian Encarnacion MD [address] [address] PCP - General Family Medicine 11/22/20 [place] [address] [facility] [address] [place] [address] Pulmonary Disease 02/27/17 Wen Nelson MD [address] [place] [address] Obstetrics and Gynecology 02/27/17 José Miguel Alva MD [address] [facility] [address] [place] [address] Gynecologic Oncology 02/27/17 Drew Martínez MD [address] [place] [address] Orthopedic Surgery 02/27/17 Lopez Nunez DO [address] [place] [address] Consulting Physician Gastroenterology 04/25/17 Autumn Chapman OD [address] [place] [address] Optometry 04/28/17 [place] [address] [facility] [address] [place] [address] Consulting Physician Cardiology 09/07/17 Tess Brennan MD 2 [facility] [address] [place] [address] Referring Physician Gastroenterology 09/25/17 Tee Moura MD [address] [facility] [address] [address] Referring Physician Surgery 11/29/17 Michel Linda MD [address] [address] Referring Physician General Surgery 03/11/19 Verena Crespo MD 2 [facility] [address] [address] Consulting Physician Nephrology 03/13/19 documented as of this encounter
--- OUTSIDE RECORDS SUMMARY | 2024-08-25 07:27 | XMS_ITS | Encounter Summary ---
Author Organization [facility] Address [address] [place] [address] Phone Care Team Providers Care Sheet Mill Supervisor Name Role Phone Valerie Grimaldo MD Primary Care Provider + [phone] Cody Polk MD Unavailable [phone] Wen Nelson MD Unavailable José Miguel Alva MD Unavailable [phone] Drew Martínez MD Unavailable [phone] Lopez Nunez DO Unavailable [phone] Autumn Chapman OD Unavailable [phone] Alcon Camacho MD Unavailable [phone] Tess Brennan MD Unavailable [phone] Tee Moura MD Unavailable [phone] Michel Linda MD Unavailable Verena Crespo MD Unavailable [phone] Unknown, Notinfile Primary Care Provider Unavail able Julian Encarnacion MD Primary Care Provider Encounter Details Date Type Department Care Team (Late st Contact Info) Description 10/01/2017 Orders Only [facility] Provider, MD Tayler [address] [place] [address] Social History Tobacco Use Types Packs/Day Years Used Date Smoking Tobacco: Never Smokeless Tobacco: Never Alcohol Use Standard Drinks/Week Comments No 0 (1 standard drink = 0.6 oz pur e alcohol) Comments No Sex and Gender Information Value Date Recorded Sex Assigned at Not on file Legal Sex Female 11:50 PM ADMINISTRATIVE ASSISTANT DATA ENTRY Gender Identity Not on file Sexual Orientation Not on file Occupation Industry Job Start Date Job End Date Retired Not on file Not on file Not on file documented as of this encounter Plan of Treatment Not on file documented as of this encounter Procedures Procedure Name Priority Date/Time Associated Diagnosis Comments DISCHARGE LABORATORY CUMULATIVE REPORT 10/01/2017 12:00 AM CDT documented in this encounter Results * DISCHARGE LABORATORY CUMULATIVE REPORT (10/01/2017 12:00 AM CDT) Narrative 10/01/2017 12:00 AM CDT Ordered by an unspecified provider. Historical Provider LAB BLOOD ORDERABLES Soledad l Result documented in this encounter Visit Diagnoses Not on filedocumented in this encounter Care Teams Sheet Mill Supervisor Relationship Specialty Start Date End Date Valerie Grimaldo MD PCP - General 09/27/16 03/16/20 Unknown, Notinfile PCP - General 03/17/20 11/21/20 Julian Encarnacion MD [address] [address] [place] [address] PCP - General Family Medicine 11/22/20 [place] [address] [facility] [address] [place] [address] Pulmonary Disease 02/27/17 Wen Nelson MD [address] [address] Obstetrics and Gynecology 02/27/17 José Miguel Alva MD [address] [facility] [address] [place], [place] [id number] Gynecologic Oncology 02/27/17 Drew Martínez MD [address] [place] [address] Orthopedic Surgery 02/27/17 Lopez Nunez DO [address] [place] [address] Consulting Physician Gastroenterology 04/25/17 Autumn Chapman OD [address] [place] [address] Optometry 04/28/17 [place] [address] [facility] [address] [place] [address] Consulting Physician Cardiology 09/07/17 Tess Brennan MD [address] [facility] [address] [address] Referring Physician Gastroenterology 09/25/17 Tee Moura MD [address] [place] [address] [address] Referring Physician Surgery 11/29/17 Michel Linda MD [address] [place] [address] [address] Referring Physician General Surgery 03/11/19 Verena Crespo MD [address] [address] Consulting Physician Nephrology 03/13/19 documented as of this encounter
[2024-08-25 21:10] LABS: Vitamin D 25 Hydroxy 71.8 ng/mL
[2024-08-26 11:53] LABS: Calcium/Creatinine Ratio, Ur 261 mg/g creat (10-320); Urine Calcium, Random 13.3 mg/dL; Urine Creatinine, Random 51 mg/dL (20-275)
[2024-08-27 16:27] LABS: Angiotensin Converting Enzyme 46 U/L (9-67)
[2024-08-28 00:59] LABS: Vitamin A 71 mcg/dL (38-98)
[2024-08-31 02:13] LABS: Parathyroid Hormone Related Pr 16 pg/mL (11-20)
== END 2024-08-25 07:20 | disposition home or self-care (01) ==
LOC: ANHBWCLAB 07:20
PROVIDERS: PCP Family Medicine; Visit Provider Internal Medicine Nephrology
DX: E83.52 Hypercalcemia (principal); N18.31 Chronic kidney disease, stage 3a
CPT/HCPCS: 36415; 82164; 82306; 82310; 82570; 82652; 83519; 84590

== ENCOUNTER 2024-10-28 09:55 | Outpatient (CLI) | payer MEDICARE, SELFPAY ==
--- NOTE | ~2024-10-28 | NM_ITS ---
EXAMINATION: NM bone scan whole body DATE: 10/28/2024 13:38 INDICATION: Hypercalcemia TECHNIQUE: 24.7 mCi Tc-99m HDP was administered intravenously. Delayed whole-body scintigrams were o btained. COMPARISON: There are no relevant imaging studies at our institution. FINDINGS: A photopenic defects at both knees consistent with bilateral total knee arthroplasties with normal mi ld degree of uptake in the immediately adjacent bone. Likely degenerative joint centered uptake at th e bilateral shoulders, hands and wrists and feet. No other suspicious foci of abnormal bone uptake to suggest osseous metastatic disease. IMPRESSION: 1. Typical pattern of mild likely degenerative joint centered uptake at the bilateral shoulders, feet and hands and wrists. Reviewed, dictated and finalized at location B. IMPRESSION: 1. Typical pattern of mild likely degenerative joint centered uptake at the marko ateral shoulders, feet and hands and wrists.
--- OUTSIDE RECORDS SUMMARY | 2024-10-28 10:43 | XMS_ITS | Clinical Summary ---
Author Organization [facility] Address [address], [address] [address] Phone Care Team Providers Care Gas Main And Line Fitter Name Role Phone Trvais Torrez MD Primary Care Provider [phone] Carolee Tay APRN, BUSINESS MANAGER Unavailable Allergies Active Allergy Reactions Criticality Noted [...] nightly for 90 days. 30 Tablet 5 025 isosorbide mononitrate (IMDUR) 30 MG TABLET SR 24 HR Take 1 Tablet by mouth every morning for 90 days. 90 Tablet 5 025 Active Problems Problem Noted Date Diagnosed Date [...] Department Care Team Description 08/19/2024 3:00 PM SHIP WORKER Office Visit [facility] - [facility] [address] [place] [address] Carolee Tay, LOADER TECHNICIAN, BUSINESS MANAGER Coronary artery disease with angina pectoris, unspecified vessel or lesion type, unspecified whether [place] or transplanted heart (HCC) (Primary Dx); Hyperlipidemia, unspecified hyperlipidemia type; Chronic diastolic heart failure (HCC); Hypertension, unspecified type; Type 2 diabetes mellitus with hyperglycemia, without long-term current use of insulin (HCC) Discharge Disposition: Discharged to home or Selfcare 08/19/2024 Travel from Last 3 Months Immunizations Immunization Administration Dates Next Due Covid-19, Mrna, Lnp-s, PF, 1 00 mcg/0.5 mL Dose (Moderna) 10/25/2020,09/26/2020 Influenza Seasonal, Intrader mal, Preservative Free 04/26/2015,04/21/2014,04/05/2009 Influenza Vaccine 05/25/2019, 7,07/01/2016,2014,04/21/2014 Influenza Vaccine, Quadrivalent, PF 03/23/2020,1 Influenza, Injectable, Quadrivalent 07/01/2016 Influenza, Intradermal, Quad rivalent, Preservative Free 04/21/2018 Influenza, high-dose, trivalent, PF 05/01,04/19/2017,07/01/2016,2014 Pneumococcal Vaccine - 13 Valent 03/17/2015 Pneumococcal [...] drink = 0.6 oz pur e alcohol) [facility] Utilities Answer Date Recorded In the past 12 months has [employer], oil, or water Memorop threatened to shut off services in your home? No 07/20/2024 Social Connection and Isolation Panel [NHANES] A nswer Date Recorded In a typical week, how many times do you talk on the phone with family, friends, or neighbors? Patient declined 07/20/2024 How often do you get togethe r with friends or relatives? Patient declined 07/20/2024 How often do you attend sikhism or jainism serv ices? Patient declined 07/20/2024 Do you belong to any clubs o r organizations such as sikhism groups, unions, fraternal or athletic groups, or [...] Total Score - Questions 1-9 0 03/31 [facility] of Occupat ional [facility] - Occupational Stress Questionnaire Answer Date Recorded [...] any time in the past 12 m [facility], were you homeless or living in a retirement (including now)? No 07/20/2024 Comments No Sex and Gender Information Value Date Recorded Sex Assigned at Not on file Legal Sex Female 7:37 PM CDT Gender Identity Not on file Sexual Orientation Not on file Last Filed Vital Signs Vital Sign Reading Time Taken Comments Blood Pressure 126/62 08/19/2024 3:01 PM SHIP WORKER Pulse 81 08/19/2024 3:01 PM SHIP WORKER Temperature 36.3 C (97.3 F) 08/19/2024 3:01 PM SHIP WORKER Respiratory Rate 16 08/19/2024 3:01 PM SHIP WORKER Oxygen Saturation 97% 08/19/2024 3:01 PM SHIP WORKER Inhaled Oxygen Concentration - - Weight 105.2 kg (232 lb) 08/19/2024 3:01 PM SHIP WORKER Height 157.5 cm (5' 2 ) 08/19/2024 3:01 PM SHIP WORKER Body Mass Index 42.43 08/19/2024 3:01 PM SHIP WORKER Plan of Treatment Upcoming Encounters Date Type Department Care Team (Late st Contact Info) Description 08/15/2025 10:00 AM SHIP WORKER Office Visit [facility] - [facility] [address] [place] [phone] Carolee Tay, LOADER TECHNICIAN, BUSINESS MANAGER [address] [place] [phone] Health Maintenance Due Date Last Done Comments [...] this topic Medical Devices Implanted Type Area Powerhouse Engineer Device Identifier Shelf Expiration Date Model / Serial / Lot Stent Coronary Leta Xience Everolimus Eluting [id number] - [id number] Implanted:Qty: 1 on 04/23/2018 [facility] IMPLANT N/A: Coronary [employer] 02/17/2019 [id number] Stent Coronary Leta Xience Everolimus Eluting [id number] - [id number] Implanted:Qty: 1 on 04/23/2018 by [facility] IMPLANT N/A: Coronary [employer] 01/15/2019 [id number] Procedures Procedure Name Priority Date/Time Associated Diagnosis Comments HEMOGLOBIN A1C W/ ESTIMATED GLUCOSE STAT 07/20/2024 5:18 AM SHIP WORKER CMP (COMPREHENSIVE METABOLIC PANEL) STAT 07/19/2024 9:48 PM SHIP WORKER [facility] SCREENING BILATERAL DIGITAL W CAD W HARLEEN Routine 08/06/2022 3:00 PM SHIP WORKER Encounter for screening mammogram for malignant neoplasm of breast Asymptomatic menopausal state [facility] BONE DENSITOMETRY AXIAL SKELETON Routine 08/06/2022 2:30 PM SHIP WORKER Encounter for screening mammogram for malignant neoplasm of breast Asymptomatic menopausal state STOOL, OCCULT BLOOD, DIAGNOSTIC, VIA GUAIAC STAT 04/30/2020 11:15 AM SHIP WORKER HEPATITIS PANEL ACUTE (AHP) Routine 02/25/2019 3:42 AM CDT from Last 3 Months or Most Recently Relevant to Health Maintenance Results * (ABNORMAL) Hemoglobin A1C w/ Estimated Glucose (07/20/2024 5:18 AM SHIP WORKER) HGB-A1C 6.3(H) 4.0 - 6.0 % 07/20/2024 5:57 AM SHIP WORKER [facility] Est Average Glucose 134.1 mg/dL 07/20/2024 5:57 AM SHIP WORKER [facility] Blood Venipuncture / Unknown 07/20/2024 5:18 AM SHIP WORKER 07/20/2024 5:37 AM SHIP WORKER Narrative [facility] - 07/20/2024 5:57 AM SHIP WORKER HEMOGLOBIN A1C: DIABETIC PATIENTS: WELL-CONTROLLED: 6.2 - 7.0 INTERMEDIATE WELL-CONTROLLED: 7.0 - 9.0 POORLY-CONTROLLED: >9.0 Specimens containing greater than 5% of Hemoglobin F may result in lower than expected % HbA1C results. us Elsa Nevarez LOADER TECHNICIAN, BUSINESS MANAGER CHEMISTRY ORDERABLES Final Result [facility] [address] [place] [address] * (ABNORMAL) CMP (Comprehensive Metabolic Panel) (07/19/2024 9:48 PM SHIP WORKER) SODIUM 140 136 - 145 mmol/L 07/19/2024 10:34 PM [facility] POTASSIUM 4.3 3.5 - 5.1 mmol/L 07/19/2024 10:34 PM [facility] CHLORIDE 108(H) 98 - 107 mmol/L 07/19/2024 10:34 PM [facility] CO2, VENOUS 23 22 - 30 mmol/L 07/19/2024 10:34 PM [facility] ANION GAP 13.3 <18.0 mmol/L 07/19/2024 10:34 PM [facility] GLUCOSE 188(H) 70 - 99 mg/dL 07/19/2024 10:34 PM [facility] BUN 28(H) 10 - 20 mg/dL 07/19/2024 10:34 PM [facility] CREATININE, BLOOD 2.17(H) 0.60 - 1.00 mg/dL 07/19/2024 10:34 PM [facility] BUN/CREATININE RATIO 13 12 - 20 ratio 07/19/2024 10:34 PM [facility] TOTAL PROTEIN 7.3 6.0 - 8.0 g/dL 07/19/2024 10:34 PM [facility] ALBUMIN 3.7 3.5 - 5.0 g/dL 07/19/2024 10:34 PM [facility] A/G RATIO 1.0 1.0 - 2.2 07/19/2024 10:34 PM [facility] CALCIUM 10.1 8.7 - 10.5 mg/dL 07/19/2024 10:34 PM [facility] T BILI 0.5 0.2 - 1.2 mg/dL 07/19/2024 10:34 PM [facility] SGOT (AST) 17 6 - 42 U/L 07/19/2024 10:34 PM SHIP WORKER [facility] SGPT (ALT) 7 6 - 55 U/L 07/19/2024 10:34 PM SHIP WORKER [facility] ALKALINE PHOSPHATASE 93 40 - 150 U/L 07/19/2024 10:34 PM SHIP WORKER [facility] GFR, ESTIMATED 23(L) >=60 07/19/2024 10:34 PM SHIP WORKER [facility] Comment: Creatinine Clearance is the preferred criteria for selecting drug dose adjustments in renally impaired patients. The GFR is provided as additional pertinent clinical information. GFR is reported in mL/min/1.73 sq m. Calculation based on the Chronic Kidney Disease Epidemiology Collaboration (CKD- EPI) equation refit without adjustment for race. GFR, EST. 27(L) >=60 025 10:34 PM SHIP WORKER [facility] GFR, EST. NONAFRICAN 22(L) >=60 07/19/2024 10:34 PM SHIP WORKER [facility] Blood Venipuncture / Unknown 07/19/2024 9:48 PM SHIP WORKER 07/19/2024 10:08 PM SHIP WORKER us Oswaldo Sue MD CHEMISTRY ORDERABLES Final Result [facility] [address] [place] [address] * [facility] SCREENING BILATERAL DIGITAL W CAD W HARLEEN (08/06/2022 3:00 PM SHIP WORKER) Anatomical Region Laterality Modality breast Bilateral Mammography 08/06/2022 3:12 PM SHIP WORKER Narrative 08/07/2022 3:59 PM SHIP WORKER - DUY SCREENING BILATERAL DIGITAL W CAD [...] to exams dated: 03/28/2020, 09/02/2019, 03/08/2019, 01/01/2018 [facility], 10/30/2017, and 10/27/2017 [facility] [employer]. BREAST TISSUE:There are scattered fibroglandular densities [...] next screening exam. Electronically signed by: Dafne urena/radha:08/07/2022 11:22:27 Warehouse Forklift Operator(s): RT Shilo(R)(M), [facility] letter sent: Normal Exam Reading location: [facility] BI-RADS: 2 Benign Procedure Note Dafne Cordero [...] to exams dated: 03/28/2020, 09/02/2019, 03/08/2019, 01/01/2018 [facility], 10/30/2017, and 10/27/2017 [facility] [employer]. BREAST TISSUE:There are scattered fibroglandular densities [...] next screening exam. Electronically signed by: Dafne urena/radha:08/07/2022 11:22:27 Warehouse Forklift Operator(s): RT Shilo(R)(M), [facility] letter sent: Normal Exam Reading location: [facility] BI-RADS: 2 Benign us Travis Torrez MD IMG MAMMO ORDERABLES Final Resu lt * DUY BONE DENSITOMETRY AXIAL SKELETON (08/06/2022 2:30 PM SHIP WORKER) Anatomical Region Laterality Modality BODY N/A Computed Radiogr aphy 08/07/2022 6:48 AM SHIP WORKER Impressions 08/07/2022 6:51 AM SHIP WORKER IMPRESSION: Low bone mass REFERENCE: Bone mineral [...] of Osteoporosis (http://www.nof.org/professionals/clinical-guidelines) Narrative 08/07/2022 6:51 AM SHIP WORKER EXAM DESCRIPTION: [facility] BONE DENSITOMETRY AXIAL SKELETON REASON FOR STUDY: 72 y/o year old F with given history of screening. Powerhouse Engineer/Model: Ecast (S/N [id number]) CLINICAL INFORMATION: Current height: 62 inches Maximum [...] Brinda Neal M.D. TW: TW Report ID: [id number] Reading Location: [id number] Procedure Note Brinda Neal MD - 08/07/2022 EXAM DESCRIPTION: [facility] BONE DENSITOMETRY AXIAL SKELETON REASON FOR STUDY: 72 y/o year old F with given history of screening. Powerhouse Engineer/Model: Ecast (S/N [id number]) CLINICAL INFORMATION: Current height: 62 inches Maximum [...] Brinda Neal M.D. TW: TW Report ID: [id number] Reading Location: [place] [address] IMPRESSION: Low bone mass REFERENCE: Bone mineral [...] Occult Blood - Diagnostic (04/30/2020 11:15 AM SHIP WORKER) [facility] Signature OCCULT BLOOD DIAG, GI BLEED Positive(A ) Negative 04/30/2020 11:53 AM SHIP WORKER [facility] Stool Non-Phlebotomy Collection / Unknown 04/30/2020 11:15 AM SHIP WORKER 04/30/2020 11:41 AM SHIP WORKER Leland Rowan MD BODY FLUIDS & STOOLS ORDERABLES Final Result [facility] [address] [place] [address] * Hepatitis Panel Acute (AHP)-BELÉN (02/25/2019 3:42 AM CDT) HEPATITIS A IGM ANTIBODY NON DETECTED NON DETECTED 02/25/2019 3:20 PM CDT [facility] Comment: IGM Antibodies to HAV not detected. Does not exclude early acute or recovered HAV infection. HEP B CORE AB (IGM) NON DETECTED NON DETECTED 02/25/2019 3:20 PM CDT [facility] Comment: IGM anti-HBC not detected. Does not exclude the possibility of exposure to or infection with HBV. HEPATITIS B SURFACE ANTIGEN NON DETECTED NON DETECTED 02/25/2019 3:20 PM CDT [facility] Comment: A nonreactive test result does not [...] 0.12 <1 S/CO 02/25/2019 3:20 PM CDT [facility] Comment: Signal/Cutoff ratio < 0.79 is Nondetected Signal/Cutoff ratio 0.80-0.99 is Grayzone Signal/Cutoff ratio > 0.99 is Detected Supplemental assays are recommended if signal/cutoff ratio is >/=1.00. Signal/cutoff ratio result >/= 5.00 is 97% predictive of positivity for recombinant immunoblot assay (RIBA) and will be reported to the [place] Department of Public Health as required. Blood specimen (specimen) Butterfly Puncture / Unknown 02/25/2019 3:42 AM CDT 02/25/2019 3:42 AM CDT us Verena Crespo MD HEMATOLOGY ORDERABLES F inal Result [facility] [address] [place] [address], from Last 3 Months or Most Recently Relevant to Health Maintenance Insurance [facility]IC[facility] Advance Directives Documents on File Type Date Recorded Patient Bottler Expl anation Advance Care Planning Discussion 05/10/2020 [...] measures to stabilize the patient. Care Teams Gas Main And Line Fitter Relationship Specialty Start Date End Date Travis Torrez MD [address] [place] [id number] PCP - General Family Medicine 05/21/22 Carolee Tay APRN, BUSINESS MANAGER [address] [place] [address] Nurse Practitioner Certified Nurse Practitioner 08/20/24
--- OUTSIDE RECORDS SUMMARY | 2024-10-28 10:43 | XMS_ITS | Encounter Summary ---
Author Organization [facility] Address [address] [place] [address] Phone Care Team Providers Care Yarrow Gatherer Name Role Phone Valerie Grimaldo MD Primary Care Provider + [phone] Cody Polk MD Unavailable [phone] Wen Nelson MD Unavailable José Miguel Alva MD Unavailable [phone] Drew Martínez MD Unavailable [phone] Lopez Nunez DO Unavailable [phone] Autumn Chapman OD Unavailable [phone] Alcon Camacho MD Unavailable [phone] Tess Brennan MD Unavailable [phone] Tee Moura MD Unavailable [phone] Michel Linda MD Unavailable Verena Crespo MD Unavailable [phone] Unknown, Notinfile Primary Care Provider Unavail able Julian Encarnacion MD Primary Care Provider Encounter Details Date Type Department Care Team (Late st Contact Info) Description 10/27/2017 Orders Only [facility] Provider, MD Tayler [address] [place] [id number] Social History Tobacco Use Types Packs/Day Years Used Date Smoking Tobacco: Never Smokeless Tobacco: Never Alcohol Use Standard Drinks/Week Comments No 0 (1 standard drink = 0.6 oz pur e alcohol) Comments No Sex and Gender Information Value Date Recorded Sex Assigned at Not on file Legal Sex Female 11:50 PM NEGATIVE NOTCHER Gender Identity Not on file Sexual Orientation [...] on filedocumented in this encounter Care Teams Yarrow Gatherer Relationship Specialty Start Date End Date Valerie Grimaldo MD PCP - General 09/27/16 03/16/20 Unknown, Notinfile PCP - General 03/17/20 11/21/20 Julian Encarnacion MD [address] [place] [address] [place] [address] PCP - General Family Medicine 11/22/20 [place] [address] [facility] [address] [place] [address] Pulmonary Disease 02/27/17 Wen Nelson MD [address] [address] Obstetrics and Gynecology 02/27/17 José Miguel Alva MD [address] [facility] [address] [place], [place] [id number] Gynecologic Oncology 02/27/17 Drew Martínez MD [address] [place] [address] Orthopedic Surgery 02/27/17 Lopez Nunez DO [address] [place] [address] Consulting Physician Gastroenterology 04/25/17 Autumn Chapman OD [address] [place] [address] Optometry 04/28/17 [place] [address] [address] [facility] [address] [place] [address] Consulting Physician Cardiology 09/07/17 Tess Brennan MD [address] [address] Referring Physician Gastroenterology 09/25/17 Tee Moura MD [address] [address] Referring Physician Surgery 11/29/17 Michel Linda MD [address] [address] Referring Physician General Surgery 03/11/19 Verena Crespo MD [address] [address] Consulting Physician Nephrology 03/13/19 documented as of this encounter
--- OUTSIDE RECORDS SUMMARY | 2024-10-28 10:43 | XMS_ITS | Continuity of Care Document ---
Author Organization [facility] Address [address] [place] [address] Phone Care Team Providers Care Gmat Instructor Name Role Phone Aline FRIEMDAN, Julian Unavailable Unavailable Procedures Procedure Date Work/medical disability examination I Moises Herman Record Review X-ray exam of knee, 3 views Advance Directives Directive Yes / No Effective Date File Name No Information Encounters Encounter Description Practice Location Reason(s) For Visit Diagnoses Date Provider Providers Copied on Encounter Work/medical disability examination I Moises Herman [facility], [address], [id number], [place] tel:[phone] [facility] [place] [facility] No Information [address] Aline Jordan. [address] [facility], [place] [address], [place], [place], [id number] , . tel:[phone] Family History Family Member Type Diagnosis Age At Onset No Information Payers Payer name Insurance type Covered democrat ID Authoriza tiarmani(s) [facility] [id number] Social History Type Description Quantity Date Captured [...]
--- OUTSIDE RECORDS SUMMARY | 2024-10-28 10:43 | XMS_ITS | Clinical Summary ---
Author Organization [facility] Address [address] [place] [address] Care Team Providers Care Analytics Leader Name Role Phone Cody Polk MD Unavailable [phone] Wen Nelson MD Unavailable [phone] José Miguel Alva MD Unavailable [phone] Drew Martínez MD Unavailable [phone] Lopez Nunez DO Unavailable [phone] Autumn Chapman OD Unavailable [phone] Alcon Camacho MD Unavailable [phone] Tess Brennan MD Unavailable [phone] Tee Moura MD Unavailable [phone] Michel Linda MD Unavailable Verena Crespo MD Unavailable [phone] Julian Encarnacion MD Primary Care Provider Allergies [...] complication, without long-term current use of insulin ([facility]) Use with glucose strips - monitor glucose checks 2 times daily. 1 each 8 Active cyanocobalamin (Vitamin B-12) 1,000 mcg tabletIndications: Type 2 diabetes mellitus with other diabetic kidney complication, without long-term current use of insulin ([facility]) Take 1 tablet (1,000 mcg total) by mouth daily 90 tablet 3 9 Active pen needle, diabetic 32 gauge x 11/12 needleIndications: Type 2 diabetes mellitus with other diabetic kidney complication, without long-term current use of insulin ([facility]) 1 Dose daily 100 each 11 9 [...] disease, with long-term current use of insulin ([facility]) Take 500 mg by mouth daily with breakfast Active warfarin (COUMADIN) 1 mg tabletIndications: Recurrent pulmonary embolism ([facility]) Take 1 -3 tablets by mouth daily as directed by MD per INR results. 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 AXIS B: Polysomnography, 11265. Ischemic heart disease due to coronary artery ob struction 06/17/2012 Overview (04/24/2018): Images from the original [...] 03/12/2019 NSTEMI (non-ST elevated myoc ardial infarction) 09/07/2017 09/07/2017 Acute saddle pulmonary embol ism [...] into coronary artery HYSTERECTOMY 06/30/2014 - 06/29/2015 [facility], staging - IA G1 uterine adenocarcinoma. [...] apnea) ASHD (arteriosclerotic heart disease) PE (pulmonary thromboembolism) (HCC) 03/2014 Uterine cancer (HCC) Dental disease PUD (peptic ulcer disease) 2 para 2 NSTEMI (non-ST elevated myoc ardial infarction) ([facility]) 09/07/2017 Acute saddle pulmonary embol ism with acute cor pulmonale ([facility]) 09/07/2017 Family History Medical History Relation Name [...] on file Legal Sex Female 11:50 PM CASH SURRENDER CALCULATOR Gender Identity Not on file Sexual Orientation [...] Comments Blood Pressure 110/60 08/10/2019 9:44 AM CASH SURRENDER CALCULATOR Pulse 68 08/10/2019 9:44 AM CASH SURRENDER CALCULATOR Temperature 36.1 C (97 F) 05/25/2019 7:56 AM CASH SURRENDER CALCULATOR Respiratory Rate 12 08/10/2019 9:44 AM CASH SURRENDER CALCULATOR Oxygen Saturation 97% 08/10/2019 9:44 AM CASH SURRENDER CALCULATOR Inhaled Oxygen Concentration - - Weight 113.4 kg (250 lb) 08/10/2019 9:44 AM CASH SURRENDER CALCULATOR Height 157.5 cm (5' 2 ) 01/26/2019 [...] with long-term current use of insulin (HCC) COMPREHENSIVE METABOLIC PANEL Routine 08/07/2019 9:31 AM CASH SURRENDER CALCULATOR Type 2 diabetes mellitus with stage 4 chronic kidney disease, with long-term current use of insulin (HCC) Hypertension complicating diabetes (HCC) ALBUMIN CREATININE RATIO, URINE Routine 08/07/2019 9:31 AM CASH SURRENDER CALCULATOR Type 2 diabetes mellitus with stage 4 chronic kidney disease, with long-term current use of insulin (HCC) Hypertension complicating diabetes (HCC) SCREENING MAMMOGRAM 2D BILATERAL Schedule Routine, Read Routine (OP Routine) 10/27/2017 10:50 AM CDT Encounter for screening mammogram for malignant neoplasm of breast HEPATITIS C ANTIBODY Routine 09/05/2017 1:37 PM CASH SURRENDER CALCULATOR SERUM LIPID PANEL Routine 07/24/2016 9:0 5 AM CASH SURRENDER CALCULATOR from Last 3 Months or Most Recently [...] 9:21 AM CDT 11/23/2019 9:23 AM CDT us Valerie Grimaldo MD LAB BLOOD ORDERABLES Final Result [facility] [address] [address] * (ABNORMAL) Albumin Creatinine Ratio, Urine (08/07/2019 9:31 AM CASH SURRENDER CALCULATOR) Creatinine, ur 142 20 - 275 mg/dL [facility] [place] Microalbumin, ur 17.3 See Note: mg/dL [facility] [place] Comment: Reference Range: Reference Range Not established Microalbumin/creat ratio 122(H) <30 mcg/mg creat [facility] [place] Comment: The ADA defines abnormalities in albumin excretion as follows: Category Result (mcg/mg creatinine) Normal <30 Microalbuminuria 30-299 Clinical albuminuria > OR = 300 The ADA recommends that at least two of three specimens collected within a 3-6 month period be abnormal before considering a patient to be within a diagnostic category. Urine 08/07/2019 9:31 AM CASH SURRENDER CALCULATOR 08/07/2019 9:31 AM CASH SURRENDER CALCULATOR Narrative Resulting Agency Comment Performing Organization Information: Site ID: [place] Name: [email or web address] Address: [address] [address] Director: Cody Castro D.O. MPH us Valerie Grimaldo MD LAB URINE ORDERABLES Final Result [facility] [place], [place] * (ABNORMAL) Comprehensive metabolic panel (08/07/2019 9:31 AM CASH SURRENDER CALCULATOR) Glucose 148(H) 65 - 99 mg/dL [facility] [place] Comment: Fasting reference interval For someone without known diabetes, a glucose value >125 mg/dL indicates that they may have diabetes and this should be confirmed with a follow-up test. BUN 29(H) 7 - 25 mg/dL [facility] [place] Creatinine 1.72(H) 0.60 - 0.93 mg/dL [facility] [place] Comment: For patients >49 years of age, the reference limit for Creatinine is approximately 13% higher for people identified as -[place]. eGFR NON-AFR. MONTENEGRIN 30(L) > OR = 60 mL/min/1. 73m2 [...] Protein, sr 7.1 6.1 - 8.1 g/dL [facility] [place] Albumin 4.1 3.6 - 5.1 g/dL [facility] [place] GLOBULIN 3.0 1.9 - 3.7 g/dL (calc) [facility] [place] Alb/glob ratio 1.4 1.0 - 2.5 (calc) [facility] [place] Bilirubin, total 0.6 0.2 - 1.2 mg/dL [facility] [place] Alk phos 123 37 - 153 U/L [facility] [place] AST 10 10 - 35 U/L [facility] [place] ALT (SGPT) 8 6 - 29 U/L [facility] [place] Blood specimen (specimen) 08/07/2019 9:31 AM CASH SURRENDER CALCULATOR 08/07/2019 9:31 AM CASH SURRENDER CALCULATOR Narrative Resulting Agency Comment Performing Organization Information: Site ID: [id number] Name: [facility] Address: [address] [place] [address] [place] [address] Director: Cody Castro D.O., MPH us Valerie Grimaldo MD LAB BLOOD ORDERABLES Final Result [facility] * Screening Mammogram 2D Bilateral (10/27/2017 10:50 [...] * Hepatitis C antibody (09/05/2017 1:37 PM CASH SURRENDER CALCULATOR) Hep C Ab Negative Negative [facility] Blood specimen (specimen) 09/05/2017 1:37 PM CASH SURRENDER CALCULATOR 09/05/2017 8:35 PM CASH SURRENDER CALCULATOR Narrative [facility] - 09/05/2017 9:21 PM CASH SURRENDER CALCULATOR Valerie Grimaldo MD LAB MICROBIOLOGY - GENERAL ORDERABLES Edited Result - Final [facility] [address] [address] Department of Laboratories [place] [id number] * (ABNORMAL) Serum lipid panel (07/24/2016 9:05 AM CASH SURRENDER CALCULATOR) Cholesterol 222(H) 100 - 200 mg/dl CDR [...] last revised 2016. Serum 07/24/2016 9:05 AM CASH SURRENDER CALCULATOR Valerie Grimaldo MD LAB BLOOD ORDERABLES Final Result [facility] HISTORICAL RESULTS from Last 3 Months or Most Recently Relevant to Health Maintenance Insurance [facility] Address: [facility] [address] [place] [address] [facility] HMO [facility] Address: [address] [address] [place] [address] MEDICARE FORMERLY [facility] MEDICARE ADV [facility] MDCR HMO [facility] Address: [address] [address] [place] [address] Advance Directives For more information, please contact: [phone] Documents on File Type Date Recorded Patient Baby Stroller Rental Clerk Expl anation ADVANCE DIRECTIVE 05/01/2018 2:42 PM POWER OF INCIDENT RESPONSE ANALYST ADVANCE DIRECTIVE 05/01/2018 2:42 PM Care Teams Analytics Leader Relationship Specialty Start Date End Date Julian Encarnacion MD [address] [facility] [address] [place] [address] PCP - General Family Medicine 11/22/20 [place] [address] [facility] [address] [place], [place] [id number] Pulmonary Disease 02/27/17 Wen Nelson MD [address] [place] [address] Obstetrics and Gynecology 02/27/17 José Miguel Alva MD [address] [facility] [address] [place] [address] Gynecologic Oncology 02/27/17 Drew Martínez MD [address] [place] [address] Orthopedic Surgery 02/27/17 Lopez Nunez DO [address] [place] [address] Consulting Physician Gastroenterology 04/25/17 Autumn Chapman OD [address] [facility] [place] [address] Optometry 04/28/17 [place] [address] [address] Consulting Physician Cardiology 09/07/17 Tess Brennan MD [address] [address] Referring Physician Gastroenterology 09/25/17 Tee Moura MD [address] [facility] [address] [address] Referring Physician Surgery 11/29/17 Michel Linda MD [address] [facility] [address] [address] Referring Physician General Surgery 03/11/19 Verena Crespo MD [address] [facility] [address] [address] Consulting Physician Nephrology 03/13/19
--- OUTSIDE RECORDS SUMMARY | 2024-10-28 10:43 | XMS_ITS | Encounter Summary ---
Author Organization [facility] Address [address] [place] [address] Phone Care Team Providers Care Level Vial Setter Name Role Phone Valerie Grimaldo MD Primary Care Provider + [phone] Cody Polk MD Unavailable [phone] Wen Nelson MD Unavailable José Miguel Alva MD Unavailable +[phone] Drew Martínez MD Unavailable +[phone] Lopez Nunez DO Unavailable [phone] Autumn Chapman OD Unavailable [phone] Alcon Camacho MD Unavailable +[phone] Tess Brennan MD Unavailable +[phone] Tee Moura MD Unavailable [phone] Michel Linda MD Unavailable Verena Crespo MD Unavailable [phone] Unknown, Notinfile Primary Care Provider Unavail able Julian Encarnacion MD Primary Care Provider Encounter Details Date Type Department Care Team (Late st Contact Info) Description 10/10/2017 Orders Only [facility] Provider, MD Tayler [address] [place] [address] Social History Tobacco Use Types Packs/Day Years Used Date Smoking Tobacco: Never Smokeless Tobacco: Never Alcohol Use Standard Drinks/Week Comments No 0 (1 standard drink = 0.6 oz pur e alcohol) Comments No Sex and Gender Information Value Date Recorded Sex Assigned at Not on file Legal Sex Female 11:50 PM POLICE MANAGER Gender Identity Not on file Sexual Orientation [...] on filedocumented in this encounter Care Teams Level Vial Setter Relationship Specialty Start Date End Date Valerie Grimaldo MD PCP - General 09/27/16 03/16/20 Unknown, Notinfile PCP - General 03/17/20 11/21/20 Julian Encarnacion MD [address] [address] [place] [address] PCP - General Family Medicine 11/22/20 [place] [address] [facility] [address] [place] [address] Pulmonary Disease 02/27/17 Wen Nelson MD [address] [address] Obstetrics and Gynecology 02/27/17 José Miguel Alva MD [address] [facility] [address] [place], [place] [id number] Gynecologic Oncology 02/27/17 Drew Martínez MD [address] [place] [address] Orthopedic Surgery 02/27/17 Lopez Nunez DO [address] [place] [address] Consulting Physician Gastroenterology 04/25/17 Autumn Chapman OD [address] [place] [address] Optometry 04/28/17 [place] [address] [address] [facility] [address] [place] [address] Consulting Physician Cardiology 09/07/17 Tess Brennan MD [address] [address] Referring Physician Gastroenterology 09/25/17 Tee Moura MD [address] [address] Referring Physician Surgery 11/29/17 Michel Linda MD [address] [address] Referring Physician General Surgery 03/11/19 Verena Crespo MD [address] [address] Consulting Physician Nephrology 03/13/19 documented as of this encounter
--- OUTSIDE RECORDS SUMMARY | 2024-10-28 10:43 | XMS_ITS | Encounter Summary ---
Author Organization [facility] Address [address] [place] [address] Phone Care Team Providers Care Director Of Safety And Security Name Role Phone Valerie Grimaldo MD Primary Care Provider + [phone] Cody Polk MD Unavailable [phone] Wen Nelson MD Unavailable [phone] José Miguel Alva MD Unavailable +[phone] Drew Martínez MD Unavailable [phone] Lopez Nunez DO Unavailable [phone] Autumn Chapman OD Unavailable [phone] Alcon Camacho MD Unavailable [phone] Tess Brennan MD Unavailable [phone] Tee Moura MD Unavailable [phone] Michel Linda MD Unavailable Verena Crespo MD Unavailable [phone] Unknown, Notinfile Primary Care Provider Unavail able Julian Encarnacion MD Primary Care Provider Encounter Details Date Type Department Care Team (Late st Contact Info) Description 10/20/2017 Orders Only [facility] Provider, MD Tayler [address] [place] [address] Social History Tobacco Use Types Packs/Day Years Used Date Smoking Tobacco: Never Smokeless Tobacco: Never Alcohol Use Standard Drinks/Week Comments No 0 (1 standard drink = 0.6 oz pur e alcohol) Comments No Sex and Gender Information Value Date Recorded Sex Assigned at Not on file Legal Sex Female 11:50 PM SEARCH ENGINE OPTIMIZATION CONSULTANT Gender Identity Not on file Sexual Orientation [...] on filedocumented in this encounter Care Teams Director Of Safety And Security Relationship Specialty Start Date End Date Valerie Grimaldo MD PCP - General 09/27/16 03/16/20 Unknown, Notinfile PCP - General 03/17/20 11/21/20 Julian Encarnacion MD [address] [address] [place] [address] PCP - General Family Medicine 11/22/20 [place] [address] [facility] [address] [place] [address] Pulmonary Disease 02/27/17 Wen Nelson MD [address] [address] Obstetrics and Gynecology 02/27/17 José Miguel Alva MD [address] [facility] [address] [place], [place] [id number] Gynecologic Oncology 02/27/17 Drew Martínez MD [address] [place] [address] Orthopedic Surgery 02/27/17 Lopez Nunez DO [address] [place] [address] Consulting Physician Gastroenterology 04/25/17 Autumn Chapman OD [address] [place] [address] Optometry 04/28/17 [place] [address] [address] [facility] [address] [place] [address] Consulting Physician Cardiology 09/07/17 Tess Brennan MD [address] [address] Referring Physician Gastroenterology 09/25/17 Tee Moura MD [address] [address] Referring Physician Surgery 11/29/17 Michel Linda MD [address] [address] Referring Physician General Surgery 03/11/19 Verena Crespo MD [address] [address] Consulting Physician Nephrology 03/13/19 documented as of this encounter
--- OUTSIDE RECORDS SUMMARY | 2024-10-28 10:43 | XMS_ITS | Encounter Summary ---
Author Organization [facility] Address [address] [place] [address] Phone Care Team Providers Care Telephone Triage Nurse Name Role Phone Valerie Grimaldo MD Primary Care Provider + [phone] Cody Polk MD Unavailable [phone] Wen Nelson MD Unavailable José Miguel Alva MD Unavailable +[phone] Drew Martínez MD Unavailable [phone] Lopez Nunez DO Unavailable [phone] Autumn Chapman OD Unavailable [phone] Alcon Camacho MD Unavailable +[phone] Tess Brennan MD Unavailable [phone] Tee Moura MD Unavailable [phone] Michel Linda MD Unavailable Verena Crespo MD Unavailable [phone] Unknown, Notinfile Primary Care Provider Unavail able Julian Encarnacion MD Primary Care Provider Encounter Details Date Type Department Care Team (Late st Contact Info) Description 11/07/2017 Orders Only 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 [address] [place] [address] Pulmonary Disease 02/27/17 Wen Nelson MD [address] [address] Obstetrics and Gynecology 02/27/17 José Miguel Alva MD [address] [facility] [address] [place], [place] [address] Gynecologic Oncology 02/27/17 Drew Martínez MD [address] [place] [address] Orthopedic Surgery 02/27/17 Lopez Nunez DO [address] [place] [address] Consulting Physician Gastroenterology 04/25/17 Autumn Chapman OD [address] [place] [address] Optometry 04/28/17 [place] [address] [address] [facility] [address] [place] [address] Consulting Physician Cardiology 09/07/17 Tess Brennan MD [address] [address] Referring Physician Gastroenterology 09/25/17 Tee Moura MD [address] [address] Referring Physician Surgery 11/29/17 Michel Linda MD [address] [address] Referring Physician General Surgery 03/11/19 Verena Crespo MD [address] [address] Consulting Physician Nephrology 03/13/19 documented as of this encounter
--- OUTSIDE RECORDS SUMMARY | 2024-10-28 10:43 | XMS_ITS | CONTINUITY OF CARE DOCUMENT ---
Author Name be lr Address Unknown Organization [facility] Address [address] [place] [address] [address] [place] [address] Phone [phone] Care Team Providers Care Single Pass Soil Stabilizer Operator Name Role Phone Choco Linda MD Unavailable [phone]
--- OUTSIDE RECORDS SUMMARY | 2024-10-28 10:43 | XMS_ITS | Encounter Summary ---
Author Organization [facility] Address [address] [place] [address] Phone Care Team Providers Care Ophthalmic Assistant Name Role Phone Valerie Grimaldo MD Primary Care Provider + [phone] Cody Polk MD Unavailable [phone] Wen Nelson MD Unavailable José Miguel Alva MD Unavailable +[phone] Drew Martínez MD Unavailable [phone] Lopez Nunez DO Unavailable [phone] Autumn Chapman OD Unavailable [phone] Alcon Camacho MD Unavailable +[phone] Tess Brennan MD Unavailable [phone] Tee Moura MD Unavailable [phone] Michel Linda MD Unavailable Verena Crespo MD Unavailable [phone] Unknown, Notinfile Primary Care Provider Unavail able Julian Encarnacion MD Primary Care Provider Encounter Details Date Type Department Care Team (Late st Contact Info) Description 11/26/2017 Orders Only [facility] Provider, MD Tayler [address] [place] [address] Social History Tobacco Use Types Packs/Day Years Used Date Smoking Tobacco: Never Smokeless Tobacco: Never Alcohol Use Standard Drinks/Week Comments No 0 (1 standard drink = 0.6 oz pur e alcohol) Comments No Sex and Gender Information Value Date Recorded Sex Assigned at Not on file 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 Gender Identity Not on file Sexual Orientation [...] on filedocumented in this encounter Care Teams Ophthalmic Assistant Relationship Specialty Start Date End Date Valerie Grimaldo MD PCP - General 09/27/16 03/16/20 Unknown, Notinfile PCP - General 03/17/20 11/21/20 Julian Encarnacion MD [address] [address] [place] [address] PCP - General Family Medicine 11/22/20 [place] [address] [facility] [address] [place] [address] Pulmonary Disease 02/27/17 Wen Nelson MD [address] [address] Obstetrics and Gynecology 02/27/17 José Miguel Alva MD [address] [facility] [address] [place], [place] [id number] Gynecologic Oncology 02/27/17 Drew Martínez MD [address] [place] [address] Orthopedic Surgery 02/27/17 Lopez Nunez DO [address] [place] [address] Consulting Physician Gastroenterology 04/25/17 Autumn Chapman OD [address] [place] [address] Optometry 04/28/17 [place] [address] [address] [facility] [address] [place] [address] Consulting Physician Cardiology 09/07/17 Tess Brennan MD [address] [address] Referring Physician Gastroenterology 09/25/17 Tee Moura MD [address] [address] Referring Physician Surgery 11/29/17 Michel Linda MD [address] [address] Referring Physician General Surgery 03/11/19 Verena Crespo MD [address] [address] Consulting Physician Nephrology 03/13/19 documented as of this encounter
--- OUTSIDE RECORDS SUMMARY | 2024-10-28 10:44 | XMS_ITS | Encounter Summary ---
Author Organization [facility] Address [address] [place] [address] Phone Care Team Providers Care Mix Chemist Name Role Phone Julian Encarnacion MD Primary Care Provider [phone] Travis Torrez MD Primary Care Provider [phone] Carolee Tay APRN, PIZZA DELIVERY DRIVER Unavailable Reason for Visit * Reason Comments Medication Refill Encounter Details Date Type Department Care Team (Late st Contact Info) Description 11/14/2020 Refill [facility] #2 [place] [address] Julian Encarnacion MD #[address] [address] Medication Refill Social History Tobacco Use Types [...] Dept 10/18/20 Office Visit Julian Encarnacion MD [facility] [place] 07/20/20 Office Visit Julian Encarnacion MD [facility] [place] 06/08/20 Office Visit Julian Encarnacion MD [facility] [place] Showing recent visits within past 182 days and meeting all other requirements Future Appointments Date Type Provider Dept 01/17/21 Appointment Julian Encarnacion MD [facility] [place] Showing future appointments within next 90 days and meeting all other requirements Passed - HgA1C on record in past 6 months HGB-A1C Date Value Ref Range Status 10/18/2020 7.0 % Final documented in this encounter Plan of Treatment Upcoming Encounters Date Type Department Care Team (Late st Contact Info) Description 08/15/2025 10:00 AM ADHESION TESTER Office Visit [facility] - Cardiology - [place] #2 [place] [address] Carolee Tay APRN, PIZZA DELIVERY DRIVER [address]2 [place] [phone] documented as of this encounter Visit Diagnoses Not on filedocumented in this encounter Additional Health Concerns Infection Onset Date Last Indicated Resolved Time COVID - 19 07/20/2024 07/20/2024 07/20/2024 3:10 AM ADHESION TESTER Assessment Noted Time PHQ-9 Depression Total Score: 0 04/24/20 20 10:39 AM CDT documented as of this encounter Care Teams Mix Chemist Relationship Specialty Start Date End Date Julian Encarnacion MD [address] [address] PCP - General Family Medicine 03/28/20 04/23/22 Travis Torrez MD [address] [place] [address] PCP - General Family Medicine 05/21/22 Carolee Tay APRN, PIZZA DELIVERY DRIVER [address]2 [place] [address] Nurse Practitioner Certified Nurse Practitioner 08/20/24 documented as of this encounter
--- OUTSIDE RECORDS SUMMARY | 2024-10-28 10:44 | XMS_ITS | Encounter Summary ---
Author Organization [facility] Address [address] [place] [address] Phone Care Team Providers Care Head Of History Name Role Phone Julian Encarnacion MD Primary Care Provider [phone] Travis Torrez MD Primary Care Provider [phone] Carolee Tay APRN, FLAT SCREEN WORKER Unavailable Reason for Visit * Reason Comments Medication Refill Encounter Details Date Type Department Care Team (Late st Contact Info) Description 10/16/2020 Refill [facility] #2 [place] [address] Julian Encarnacion MD #[address] [address] Medication Refill Social History Tobacco Use Types [...] with long-term current use of insulin (HCC) [facility] - Julian Hines MD 4 months ago Hematemesis, presence of nausea not specified [facility] Julian Graham MD 5 months ago Hematemesis, presence of nausea not specified [facility] Julian Graham MD 6 months ago Preop cardiovascular exam [facility] Julian Graham MD 8 months ago Coronary artery disease with angina pectoris, unspecified vessel or lesion type, unspecified whether [place] or transplanted heart (HCC) [facility] - Aletha Benson, CAITLIN Upcoming Appointments Future Appointments Tomorrow Julian Encarnacion MD [facility] [place], [facility] In 6 days Cristina Garcia APN, FLAT SCREEN WORKER [facility] - [facility] Center Oncology Services, [facility] In [address] VACCINE CLINIC [facility] - [facility] CONSTRUCTION RECRUITER - Recent and Past Visits Recent Visits Date Type Provider Dept 07/20/20 Office Visit Julian Encarnacion MD [facility] [place] 06/08/20 Office Visit Julian Encarnacion MD [facility] 05/10/20 Office Visit Julian Encarnacion MD [facility] 03/23/20 Office Visit Julian Encarnacion MD [facility] 02/18/20 [facility] Show[facility] visits within past 460 days with a meds authorizing provider and meeting all other requirements Future Appointments Date Type Provider Dept 10/18/20 Appointment Julian Encarnacion MD [facility] Showing future appointments within next 90 days with a meds authorizing provider and meeting all other requirements documented in this encounter Plan of Treatment Upcoming Encounters Date Type Department Care Team (Late st Contact Info) Description 08/15/2025 10:00 AM UTILITY GELATIN MAKER Office Visit [facility] - [facility]iology - [place] #2 [place] [address] Carolee Tay APRN, FLAT SCREEN WORKER [address]2 [place] [address] documented as of this encounter Visit Diagnoses Not on filedocumented in this encounter Additional Health Concerns Infection Onset Date Last Indicated Resolved Time COVID - 19 07/20/2024 07/20/2024 07/20/2024 3:10 AM UTILITY GELATIN MAKER Assessment Noted Time PHQ-9 Depression Total Score: 0 04/24/20 10:39 AM CDT documented as of this encounter Care Teams Head Of History Relationship Specialty Start Date End Date Julian Encarnacion MD #[address] [address] PCP - General Family Medicine 03/28/20 04/23/22 Travis Torrez MD [address] [place] [address] PCP - General Family Medicine 05/21/22 Carolee Tay APRN, FLAT SCREEN WORKER [address]2 [place] [address] Nurse Practitioner Certified Nurse Practitioner 08/20/24 documented as of this encounter
--- OUTSIDE RECORDS SUMMARY | 2024-10-28 10:44 | XMS_ITS | Referral Summary ---
Author Organization [facility] Address [address] [place] [address] Care Team Providers Care Readiness Paraprofessional Name Role Phone Cody Plok MD Unavailable [phone] Wen Nelson MD Unavailable José Miguel Alva MD Unavailable [phone] Drew Martínez MD Unavailable [phone] Lopez Nunez DO Unavailable [phone] Autumn Chapman OD Unavailable [phone] Alcon Camacho MD Unavailable [phone] Tess Brennan MD Unavailable [phone] Tee Moura MD Unavailable [phone] Michel Linda MD Unavailable Verena Crespo MD Unavailable [phone] Julian Encarnacion MD Primary Care Provider [phone] Allergies Active Allergy Reactions Criticality Noted Date [...] complication, without long-term current use of insulin ([facility]) Use with glucose strips - monitor glucose checks 2 times daily. 1 each 8 Active cyanocobalamin (Vitamin B-12) 1,000 mcg tabletIndications: Type 2 diabetes mellitus with other diabetic kidney complication, without long-term current use of insulin ([facility]) Take 1 tablet (1,000 mcg total) by mouth daily 90 tablet 3 9 Active pen needle, diabetic 32 gauge x 11/12 needleIndications: Type 2 diabetes mellitus with other diabetic kidney complication, without long-term current use of insulin ([facility]) 1 Dose daily 100 each 11 9 [...] disease, with long-term current use of insulin ([facility]) Take 500 mg by mouth daily with breakfast Active warfarin (COUMADIN) 1 mg tabletIndications: Recurrent pulmonary embolism ([facility]) Take 1 -3 tablets by mouth daily [...] controlled Assessment & Plan (08/10/2019 11:00 AM ACADEMIC RECORDS SPECIALIST): Patient with improvement in HgbA1C from 10.4 [...] sleep apnea syndrome, 327.23. AXIS B: Polysomnography, [address]. Ischemic heart disease due to coronary artery [...] on file Legal Sex Female 11:50 PM ACADEMIC RECORDS SPECIALIST Gender Identity Not on file Sexual Orientation Not on file Occupation Industry Job Start Date Job End Date Retired Not on file Not on file Not on file Last Filed Vital Signs Vital Sign Reading Time Taken Comments Blood Pressure 110/60 08/10/2019 9:44 AM ACADEMIC RECORDS SPECIALIST Pulse 68 08/10/2019 9:44 AM ACADEMIC RECORDS SPECIALIST Temperature 36.1 C (97 F) 05/25/2019 7:56 AM ACADEMIC RECORDS SPECIALIST Respiratory Rate 12 08/10/2019 9:44 AM ACADEMIC RECORDS SPECIALIST Oxygen Saturation 97% 08/10/2019 9:44 AM ACADEMIC RECORDS SPECIALIST Inhaled Oxygen Concentration - - Weight 113.4 kg (250 lb) 08/10/2019 9:44 AM ACADEMIC RECORDS SPECIALIST Height 157.5 cm (5' 2 ) 01/26/2019 9:45 AM CDT Body Mass Index 45.73 01/26/2019 9:45 AM CDT Plan of Treatment Not on file Procedures Procedure Name Priority Date/Time Associated Diagnosis Comments HEMOGLOBIN A1C Routine 11/23/2019 9:21 AM CDT Type 2 diabetes mellitus with stage 4 chronic kidney disease, with long-term current use of insulin (HCC) COMPREHENSIVE METABOLIC PANEL Routine 08/07/2019 9:31 AM ACADEMIC RECORDS SPECIALIST Type 2 diabetes mellitus with stage 4 chronic kidney disease, with long-term current use of insulin (HCC) Hypertension complicating diabetes (HCC) ALBUMIN CREATININE RATIO, URINE Routine 08/07/2019 9:31 AM ACADEMIC RECORDS SPECIALIST Type 2 diabetes mellitus with stage 4 chronic kidney disease, with long-term current use of insulin (HCC) Hypertension complicating diabetes (HCC) SCREENING MAMMOGRAM 2D BILATERAL Schedule Routine, Read Routine (OP Routine) 10/27/2017 10:50 AM CDT Encounter for screening mammogram for malignant neoplasm of breast HEPATITIS C ANTIBODY Routine 09/05/2017 1:37 PM ACADEMIC RECORDS SPECIALIST SERUM LIPID PANEL Routine 07/24/2016 9:0 5 AM ACADEMIC RECORDS SPECIALIST from Last 3 Months or Most Recently [...] BLOOD ORDERABLES Final Result Performing Organization Address [facility] Co de Phone Number ASIYA Knight [address] [facility] [place] [address] * (ABNORMAL) Albumin Creatinine Ratio, Urine (08/07/2019 9:31 AM ACADEMIC RECORDS SPECIALIST) Creatinine, ur 142 20 - 275 mg/dL [facility] [place] Microalbumin, ur 17.3 See Note: mg/dL [facility] [place] Comment: Reference Range: Reference Range Not established Microalbumin/creat ratio 122(H) <30 mcg/mg creat [facility] [place] Comment: The ADA defines abnormalities in albumin excretion as follows: Category Result (mcg/mg creatinine) Normal <30 Microalbuminuria 30-299 Clinical albuminuria > OR = 300 The ADA recommends that at least two of three specimens collected within a 3-6 month period be abnormal before considering a patient to be within a diagnostic category. Urine 08/07/2019 9:31 AM ACADEMIC RECORDS SPECIALIST 08/07/2019 9:31 AM ACADEMIC RECORDS SPECIALIST Narrative Resulting Agency Comment Performing Organization Information: Site ID: [facility] Name: [facility] Address: [address] [place] [address] Director: Cody Castro D.O., MPH us Valerie Grimaldo MD LAB URINE ORDERABLES Final Result Performing Organization Address [facility] Co de Phone Number ASIYA Stootie [place] * (ABNORMAL) Comprehensive metabolic panel (08/07/2019 9:31 AM ACADEMIC RECORDS SPECIALIST) Glucose 148(H) 65 - 99 mg/dL [facility] [place] Comment: Fasting reference interval For someone without known diabetes, a glucose value >125 mg/dL indicates that they may have diabetes and this should be confirmed with a follow-up test. BUN 29(H) 7 - 25 mg/dL [facility] [place] Creatinine 1.72(H) 0.60 - 0.93 mg/dL [facility] [place] Comment: For patients >49 years of age, the reference limit for Creatinine is approximately 13% higher for people identified as -[place]. eGFR NON-AFR. WELSH 30(L) > OR = 60 mL/min/1. 73m2 [facility] [place] EGFR 34(L) > OR = 60 mL/min/1. 73m2 [facility] [place] BUN/creat ratio 17 6 - 22 (calc) [facility] [place] Sodium 141 135 - 146 mmol/L [facility] [place] Potassium, pl 4.3 3.5 - 5.3 mmol/L [facility] [place] Chloride 102 98 - 110 mmol/L [facility] [place] CO2 26 20 - 32 mmol/L [facility] [place] Calcium 9.7 8.6 - 10.4 mg/dL [facility] [place] Protein, sr 7.1 6.1 - 8.1 g/dL [facility] [place] Albumin 4.1 3.6 - 5.1 g/dL [facility] [place] GLOBULIN 3.0 1.9 - 3.7 g/dL (calc) [facility] [place] Alb/glob ratio 1.4 1.0 - 2.5 (calc) [facility] [place] Bilirubin, total 0.6 0.2 - 1.2 mg/dL [facility] [place] Alk phos 123 37 - 153 U/L [facility] [place] AST 10 10 - 35 U/L [facility] [place] ALT (SGPT) 8 6 - 29 U/L [facility] [place] Blood specimen (specimen) 08/07/2019 9:31 AM ACADEMIC RECORDS SPECIALIST 08/07/2019 9:31 AM ACADEMIC RECORDS SPECIALIST Narrative Resulting Agency Comment Performing Organization Information: Site ID: [place] Name: Asiya Knight Address: [address] [address] Director: Cody Castro D.O., MPH Valerie Grimaldo MD LAB BLOOD ORDERABLES Final Result [facility] [place] * Screening Mammogram 2D Bilateral (10/27/2017 10:50 [...] * Hepatitis C antibody (09/05/2017 1:37 PM ACADEMIC RECORDS SPECIALIST) Hep C Ab Negative Negative [facility] Blood specimen (specimen) 09/05/2017 1:37 PM ACADEMIC RECORDS SPECIALIST 09/05/2017 8:35 PM ACADEMIC RECORDS SPECIALIST Narrative [facility] - 09/05/2017 9:21 PM ACADEMIC RECORDS SPECIALIST Valerie Grimaldo MD LAB MICROBIOLOGY - GENERAL ORDERABLES Edited Result - Final NATASHA [address] [address] Department [place] [address] * (ABNORMAL) Serum lipid panel (07/24/2016 9:05 AM ACADEMIC RECORDS SPECIALIST) Cholesterol 222(H) 100 - 200 mg/dl CDR [...] last revised 2016. Serum 07/24/2016 9:05 AM ACADEMIC RECORDS SPECIALIST us Valerie Grimaldo MD LAB BLOOD ORDERABLES Final Result CDR HISTORICAL RESULTS from Last 3 Months or Most Recently Relevant to Health Maintenance Insurance [facility] HMO REF [place] [id number] [facility] HMO REF [place] [id number] MEDICARE CIGNA MEDICARE ADV [facility] MDCR HMO REF Advance Directives For more information, please contact: [phone] Documents on File Type Date Recorded Patient Ict Account Manager Expl anation ADVANCE DIRECTIVE 05/01/2018 2:42 PM POWER OF SUEDING MACHINE OPERATOR ADVANCE DIRECTIVE 05/01/2018 2:42 PM Care Teams Readiness Paraprofessional Relationship Specialty Start Date End Date Julian Encarnacion MD 2 [facility] [address] [place] [address] PCP - General Family Medicine 11/22/20 [place] [address] [facility] [address] [place] [address] Pulmonary Disease 02/27/17 Wen Nelson MD [address] [place] [address] Obstetrics and Gynecology 02/27/17 José Miugel Alva MD [address] [place] [address] Gynecologic Oncology 02/27/17 Drew Martínez MD [address] [place] [address] Orthopedic Surgery 02/27/17 Lopez Nunez DO [address] [place] [address] Consulting Physician Gastroenterology 04/25/17 Autumn Chapman OD [address] [place] [address] Optometry 04/28/17 [place] [address] [facility] [address] [place] [address] Consulting Physician Cardiology 09/07/17 Tess Brennan MD [address] [facility] [address] [address] Referring Physician Gastroenterology 09/25/17 Tee Moura MD [address] [facility] [facility] [address] [address] Referring Physician Surgery 11/29/17 Michel Linda MD [address] [facility] [facility] [address] [address] Referring Physician General Surgery 03/11/19 Verena Crespo MD [address] [address] Consulting Physician Nephrology 03/13/19
--- OUTSIDE RECORDS SUMMARY | 2024-10-28 10:44 | XMS_ITS | Encounter Summary ---
Author Organization [facility] Address [address] [place] [address] Phone Care Team Providers Care Skin Care Specialist Name Role Phone Valerie Grimaldo MD Primary Care Provider [phone] Cody Polk MD Unavailable [phone] Wen Nelson MD Unavailable José Miguel Alva MD Unavailable [phone] Drew Martínez MD Unavailable [phone] Lopez Nunez DO Unavailable [phone] Autumn Chapman OD Unavailable [phone] Alcon Camacho MD Unavailable [phone] Tess Brennan MD Unavailable [phone] Tee Moura MD Unavailable [phone] Michel Linda MD Unavailable Verena Cresop MD Unavailable [phone] Unknown, Notinfile Primary Care Provider Unavail able Julian Encarnacion MD Primary Care Provider Encounter Details Date Type Department Care Team (Late st Contact Info) Description 09/05/2017 Orders Only [facility] Provider, MD [place] [address] [place] [address] Social History Tobacco Use Types Packs/Day Years Used Date Smoking Tobacco: Never Smokeless Tobacco: Never Alcohol Use Standard Drinks/Week Comments No 0 (1 standard drink = 0.6 oz pur e alcohol) Comments No Sex and Gender Information Value Date Recorded Sex Assigned at Not on file Legal Sex Female 11:50 PM MISSILE AND MISSILE CHECKOUT TECHNICIAN Gender Identity Not on file Sexual Orientation Not on file documented as of this encounter Plan of Treatment Not on file documented as of this encounter Procedures Procedure Name Priority Date/Time Associated Diagnosis Comments DISCHARGE LABORATORY CUMULATIVE REPORT 09/05/2017 12:00 AM MISSILE AND MISSILE CHECKOUT TECHNICIAN documented in this encounter Results * DISCHARGE LABORATORY CUMULATIVE REPORT (09/05/2017 12:00 AM MISSILE AND MISSILE CHECKOUT TECHNICIAN) Narrative 09/05/2017 12:00 AM MISSILE AND MISSILE CHECKOUT TECHNICIAN Ordered by an unspecified provider. us Historical Provider LAB BLOOD ORDERABLES Soledad l Result documented in this encounter Visit Diagnoses Not on filedocumented in this encounter Care Teams Skin Care Specialist Relationship Specialty Start Date End Date Valerie Grimaldo MD PCP - General 09/27/16 03/16/20 Unknown, Notinfile PCP - General 03/17/20 11/21/20 Julian Encarnacion MD 2 [facility] [address] [place] [address] PCP - General Family Medicine 11/22/[address] [place] [address] [facility] [address] [place] [address] Pulmonary Disease 02/27/17 Wen Nelson MD [address] [place] [address] Obstetrics and Gynecology 02/27/17 José Miguel Alva MD [address] [facility] [address] [place] [address] Gynecologic Oncology 02/27/17 Drew Martínez MD [address] [facility] [address] [place] [address] Orthopedic Surgery 02/27/17 Lopez Nunez DO [address] [place] [address] Consulting Physician Gastroenterology 04/25/17 Autumn Chapman OD [address] [place] [address] Optometry 04/28/[address] [place] [address] [facility] [address] [place] [address] Consulting Physician Cardiology 09/07/17 Tess Brennan MD [address] [facility] [address] [address] Referring Physician Gastroenterology 09/25/17 Tee Moura MD [address] [facility] [facility] [address] [address] Referring Physician Surgery 11/29/17 Michel Linda MD [address] [facility] [address] [address] Referring Physician General Surgery 03/11/19 Verena Crespo MD [address] [facility] [address] [address] Consulting Physician Nephrology 03/13/19 documented as of this encounter
--- OUTSIDE RECORDS SUMMARY | 2024-10-28 10:44 | XMS_ITS | Encounter Summary ---
Author Organization [facility] Address [address] [place] [address] Phone Care Team Providers Care Pinball Machine Repairer Name Role Phone Julian Encarnacion MD Primary Care Provider Travis Torrez MD Primary Care Provider [phone] Carolee Tay APRN, BINDER CUTTER Unavailable Reason for Visit * Reason Comments Medication Refill Encounter Details Date Type Department Care Team (Late st Contact Info) Description 12/04/2020 Refill [facility] #2 [place] [address] Julian Encarnacion MD #[address] [address] Medication Refill Social History Tobacco Use Types [...] complication, with long-term current use of insulin ([facility]) [facility] Julian Hines MD 4 months ago Type 2 diabetes mellitus without complication, with long-term current use of insulin ([facility]) [facility] Julian Graham MD 6 months ago Hematemesis, presence of nausea not specified [facility] Julian Graham MD 6 months ago Hematemesis, presence of nausea not specified [facility] Julian Graham MD 8 months ago Preop cardiovascular exam [facility] Julian Graham MD Upcoming Appointments Future Appointments In 1 month Julian Encarnacion MD [facility] [place] [facility] In 2 months Cristina Garcia APN, BINDER CUTTER [facility] - Cancer Center Oncology Services, [facility] WAFER CLEANER - Recent and Past Visits Recent Visits Date Type Provider Dept 10/18/20 Office Visit Julian Encarnacion MD [facility] 07/20/20 Office Visit Julian Encarnacion MD [facility] 06/08/20 Office Visit Julian Encarnacion MD [facility] 05/10/20 Office Visit Julian Encarnacion MD [facility] 03/23/20 Office Visit Julian Encarnacion MD [facility] [place] 02/18/20 Office Visit Aletha Anand PAC [facility] Showing recent visits within past 460 days with a meds authorizing provider and meeting all other requirements Future Appointments Date Type Provider Dept 01/17/21 Appointment Julian Encarnacion MD [facility] [place] Showing future appointments within next 90 days with a meds authorizing provider and meeting all other requirements documented in this encounter Plan of Treatment Upcoming Encounters Date Type Department Care Team (Late st Contact Info) Description 08/15/2025 10:00 AM PIPING DRAFTER [facility] [place] #2 [place] [address] Carolee Tay APRN, BINDER CUTTER [address] [place] [address] documented as of this encounter Visit Diagnoses Not on filedocumented in this encounter Additional Health Concerns Infection Onset Date Last Indicated Resolved Time COVID - 19 07/20/2024 07/20/2024 07/20/2024 3:10 AM PIPING DRAFTER Assessment Noted Time PHQ-9 Depression Total Score: 0 04/24/20 20 10:39 AM CDT documented as of this encounter Care Teams Pinball Machine Repairer Relationship Specialty Start Date End Date Julian Encarnacion MD #[address] [address] PCP - General Family Medicine 03/28/20 04/23/22 Travis Torrez MD [address] [place] [address] PCP - General Family Medicine 05/21/22 Carolee Tay APRN, BINDER CUTTER [address] [place] [address] Nurse Practitioner Certified Nurse Practitioner 08/20/24 documented as of this encounter
--- OUTSIDE RECORDS SUMMARY | 2024-10-28 10:44 | XMS_ITS | Encounter Summary ---
Author Organization [facility] Address [address] [place] [address] Phone Care Team Providers Care Melter Loader Name Role Phone Julian Encarnacion MD Primary Care Provider [phone] Travis Torrez MD Primary Care Provider [phone] Carolee Tay APRN, ROLLER SKATES ASSEMBLER Unavailable Reason for Visit * Reason Comments Medication Refill Encounter Details Date Type Department Care Team (Late st Contact Info) Description 08/06/2021 [facility]ill [facility] - Family [facility] #2 [place] [address] Julian Encarnacion MD #[address] [address] Medication Refill Social History Tobacco Use Types [...] Autumn Patino RN - 08/07/2021 2:23 PM SUPERVISOR SECURITIES VAULT Patient is not wanting an appointment, just wanted enough medication until she could see her new Dr. RVISOR SECURITIES VAULT * Telephone Encounter - Kenyetta Moran RMA - 08/07/2021 2:13 PM SUPERVISOR SECURITIES VAULT Left voicemail RVISOR SECURITIES VAULT * Telephone Encounter - Dominique Conway RN - 08/07/2021 10:38 AM CST Provider requests patient appointment RVISOR SECURITIES VAULT * Telephone Encounter - Dominique Conway RN [...] Dept 02/21/21 Office Visit Julian Encarnacion MD [facility] [place] Showing recent visits within past 182 days and meeting all other requirements Future Appointments No visits were found meeting these conditions. Showing future appointments within next 90 days and meeting all other requirements RVISOR SECURITIES VAULT documented in this encounter Plan of Treatment Upcoming Encounters Date Type Department Care Team (Late st Contact Info) Description 08/15/2025 10:00 AM SUPERVISOR SECURITIES VAULT Office Visit [facility] - Cardiology - [place] [address]2 [place] [address] Carolee Tay APRN, KIM [address] [place] [address] documented as of this encounter Visit Diagnoses Not on filedocumented in this encounter Additional Health Concerns Infection Onset Date Last Indicated Resolved Time COVID - 19 07/20/2024 07/20/2024 07/20/2024 3:10 AM SUPERVISOR SECURITIES VAULT Assessment Noted Time PHQ-9 Depression Total Score: 0 04/24/20 10:39 AM CDT documented as of this encounter Care Teams Melter Loader Relationship Specialty Start Date End Date Julian Encarnacion MD [address] [address] PCP - General Family Medicine 03/28/20 04/23/22 Travis Torrez MD [address] [place] [address] PCP - General Family Medicine 05/21/22 Carolee Tay APRN, KIM [address] [place] [address] Nurse Practitioner Certified Nurse Practitioner 08/20/24 documented as of this encounter
--- OUTSIDE RECORDS SUMMARY | 2024-10-28 10:44 | XMS_ITS | Encounter Summary ---
Author Organization [facility] Address [address] [place] [address] Phone Care Team Providers Care Bull Rider Name Role Phone Valerie Grimaldo MD Primary Care Provider + [phone] Cody Polk MD Unavailable [phone] Wen Nelson MD Unavailable José Miguel Alva MD Unavailable +[phone] Drew Martínez MD Unavailable +[phone] Lopez Nunez DO Unavailable [phone] Autumn Chapman OD Unavailable +[phone] Alcon Camacho MD Unavailable +[phone] Tess Brennan MD Unavailable +[phone] Tee Moura MD Unavailable [phone] Michel Linda MD Unavailable Verena Crespo MD Unavailable +[phone] Unknown, Notinfile Primary Care Provider Unavail able Julian Encarnacion MD Primary Care Provider Encounter Details Date Type Department Care Team (Late st Contact Info) Description 08/22/2017 Orders Only [facility] Provider, MD Tayler [address] [place] [address] Social History Tobacco Use Types Packs/Day Years Used Date Smoking Tobacco: Never Smokeless Tobacco: Never Alcohol Use Standard Drinks/Week Comments No 0 (1 standard drink = 0.6 oz pur e alcohol) Comments Unknown Sex and Gender Information Value Date Recorded Sex Assigned at Not on file Legal Sex Female 11:50 PM CREEL SELECTOR Gender Identity Not on file Sexual Orientation Not on file documented as of this encounter Plan of Treatment Not on file documented as of this encounter Procedures Procedure Name Priority Date/Time Associated Diagnosis Comments DISCHARGE LABORATORY CUMULATIVE REPORT 08/22/2017 12:00 AM CREEL SELECTOR documented in this encounter Results * DISCHARGE LABORATORY CUMULATIVE REPORT (08/22/2017 12:00 AM CREEL SELECTOR) Narrative 08/22/2017 12:00 AM CREEL SELECTOR Ordered by an unspecified provider. us Historical Provider LAB BLOOD ORDERABLES Soledad l Result documented in this encounter Visit Diagnoses Not on filedocumented in this encounter Care Teams Bull Rider Relationship Specialty Start Date End Date Valerie Grimaldo MD PCP - General 09/27/16 03/16/20 Unknown, Notinfile PCP - General 03/17/20 11/21/20 Julian Encarnacion MD 2 [facility] [address] [place] [address] PCP - General Family Medicine 11/22/20 [place] [address] [facility] H23[address] [place] [address] Pulmonary Disease 02/27/17 Wen Nelson MD [address] [place] [address] Obstetrics and Gynecology 02/27/17 José Miguel Alva MD [address] [facility] [address] [place] [address] Gynecologic Oncology 02/27/17 Drew Martínez MD [address] [facility] [address] [place] [address] Orthopedic Surgery 02/27/17 Lopez Nunez DO [address] [place] [address] [place] [address] Consulting Physician Gastroenterology 04/25/17 Autumn Chapman OD [address] [place] [address] Optometry 04/28/17 [place] [address] [facility] [address] [place] [address] Consulting Physician Cardiology 09/07/17 Tess Brennan MD [address] [facility] [address] [address] Referring Physician Gastroenterology 09/25/17 Tee Moura MD [address] [facility] [address] [address] Referring Physician Surgery 11/29/17 Michel Linda MD [address] [facility] [address] [address] Referring Physician General Surgery 03/11/19 Verena Crespo MD 2 [facility] [address] [address] Consulting Physician Nephrology 03/13/19 documented as of this encounter
--- OUTSIDE RECORDS SUMMARY | 2024-10-28 10:44 | XMS_ITS | Encounter Summary ---
Author Organization [facility] Address [address] [place] [address] Phone Care Team Providers Care Medical Laboratory Technicians Name Role Phone Julian Encarnacion MD Primary Care Provider Travis Torrez MD Primary Care Provider [phone] Carolee Tay APRN, RECEPTION CENTRE MANAGER Unavailable Reason for Visit * Reason Comments Medication Refill Encounter Details Date Type Department Care Team (Late st Contact Info) Description 06/20/2021 Refill [facility] - Family Medicine [facility] #2 [place] [address] Julian Encarnacion MD #[address] [address] Medication Refill Social History Tobacco Use Types [...] Kenyetta Moran RMA - 06/27/2021 10:55 AM GALLEY COOK Left voicemail EY COOK * Telephone Encounter - Dominique Conway RN - 06/26/2021 10:52 AM CST Patient needs appointment EY COOK * Telephone Encounter - Carola Patiño MA - 06/25/2021 3:43 PM GALLEY COOK Message left on Medication refill voice mail: Patient would like to know why the doctor has refusedher pain medication (Ty#3) ? See previous message from 06/21/21 . Please call patient @[phone] EY COOK * Telephone Encounter - Kenyetta Moran RMA - 06/21/2021 11:19 AM GALLEY COOK Left voicemiail EY COOK * Telephone Encounter - Dominique Conway RN - 06/20/2021 3:56 PM CST PCP requests patient appointment EY COOK * Telephone Encounter - Dominique Conway RN [...] Dept 02/21/21 Office Visit Julian Encarnacion MD [facility] [address] [place] 10/18/20 Office Visit [facility] [place] 07/20/20 Office Visit Julian Encarnacion MD [facility] [address] [place] Showing recent visits within past 365 days and meeting all other requirements Future Appointments No visits were found meeting these conditions. Showing future appointments within next 90 days and meeting all other requirements EY COOK documented in this encounter Plan of Treatment Upcoming Encounters Date Type Department Care Team (Late st Contact Info) Description 08/15/2025 10:00 AM GALLEY COOK Office Visit [facility] - Cardiology - [place] #2 [place] [address] Carolee Tay APRN, RECEPTION CENTRE MANAGER #2 [place] [address] documented as of this encounter Visit Diagnoses Diagnosis Arthralgia, unspecified joint documented in this encounter Additional Health Concerns Infection Onset Date Last Indicated Resolved Time COVID - 19 07/20/2024 07/20/2024 07/20/2024 3:10 AM GALLEY COOK Assessment Noted Time PHQ-9 Depression Total Score: 0 04/24/20 20 10:39 AM CDT documented as of this encounter Care Teams Medical Laboratory Technicians Relationship Specialty Start Date End Date Julian Encarnacion MD #[address] [address] PCP - General Family Medicine 03/28/20 04/23/22 Travis Torrez MD [address] [place] [address] PCP - General Family Medicine 05/21/22 Carolee Tay APRN, RECEPTION CENTRE MANAGER #2 [place] [address] Nurse Practitioner Certified Nurse Practitioner 08/20/24 documented as of this encounter
--- OUTSIDE RECORDS SUMMARY | 2024-10-28 10:44 | XMS_ITS | Encounter Summary ---
Author Organization [facility] Address [address] [place] [address] Phone Care Team Providers Care Director Of Human Resources Name Role Phone Valerie Grimaldo MD Primary Care Provider + [phone] Cody Polk MD Unavailable [phone] Wen Nelson MD Unavailable José Miguel Alva MD Unavailable +[phone] Drew Martínez MD Unavailable +[phone] Lopez Nunez DO Unavailable [phone] Autumn Chapman OD Unavailable [phone] Alcon Camacho MD Unavailable +[phone] Tess Brennan MD Unavailable [phone] Tee Moura MD Unavailable [phone] Michel Linda MD Unavailable Verena Crespo MD Unavailable [phone] Unknown, Notinfile Primary Care Provider Unavail able Julian Encarnacion MD Primary Care Provider Encounter Details Date Type Department Care Team (Late st Contact Info) Description 09/08/2017 Orders Only [facility] Provider, MD Tayler [address] [place] [address] Social History Tobacco Use Types Packs/Day Years Used Date Smoking Tobacco: Never Smokeless Tobacco: Never Alcohol Use Standard Drinks/Week Comments No 0 (1 standard drink = 0.6 oz pur e alcohol) Comments No Sex and Gender Information Value Date Recorded Sex Assigned at Not on file Legal Sex Female 11:50 PM DEVELOPMENT ENGINEER Gender Identity Not on file Sexual [...] in this encounter Care Teams Director Of Human Resources Relationship Specialty Start Date End Date Valerie Grimaldo MD PCP - General 09/27/16 03/16/20 Unknown, Notinfile PCP - General 03/17/20 11/21/20 Julian Encarnacion MD [address] [address] PCP - General Family Medicine 11/22/20 [place] [address] [facility] H23[address] [place] [address] Pulmonary Disease 02/27/17 Wen Nelson MD [address] [place] [address] Obstetrics and Gynecology 02/27/17 José Miguel Alva MD [address] [facility] [address] [place] [address] Gynecologic Oncology 02/27/17 Drew Martínez MD [address] [place] [address] [place] [address] Orthopedic Surgery 02/27/17 Lopez Nunez DO [address] [facility] [address] [place] [address] Consulting Physician Gastroenterology 04/25/17 Autumn Chapman OD [address] [place] [address] Optometry 04/28/17 [place] [address] [facility] [address] [place] [address] Consulting Physician Cardiology 09/07/17 Tess Brennan MD [address] [facility] [address] [address] Referring Physician Gastroenterology 09/25/17 Tee Moura MD [address] [facility] [address] Referring Physician Surgery 11/29/17 Michel Linda MD 2 [facility] [place] [address] Referring Physician General Surgery 03/11/19 Verena Crespo MD [address] [place] [address] [address] Consulting Physician Nephrology 03/13/19 documented as of this encounter
--- OUTSIDE RECORDS SUMMARY | 2024-10-28 10:44 | XMS_ITS | Encounter Summary ---
Author Organization [facility] Address [address] [place] [address] Phone Care Team Providers Care Cardiology Clinical Consultant Name Role Phone Julian Encarnacion MD Primary Care Provider Travis Torrez MD Primary Care Provider Carolee Tay APRN, SILVER LAP MACHINE TENDER Unavailable Reason for Visit * Reason Comments Medication Refill Encounter Details Date Type Department Care Team (Late st Contact Info) Description 05/17/2021 Refill [facility] - Family Medicine [facility] #2 [place] [address] Julian Encarnacion MD #[address] [address] Medication Refill Social History Tobacco Use Types [...] 05/17/2021 10:12 AM CST Prescription pending signature ITECTURAL DRAFTER * Telephone Encounter - Dominique Conway RN [...] Visits 2 months ago Arthralgia, unspecified joint [facility] - Julian Hines MD 7 months ago Type 2 diabetes mellitus without complication, with long-term current use of insulin ([facility]) [facility] Julian Graham MD 10 months ago Type 2 diabetes mellitus without complication, with long-term current use of insulin ([facility]) [facility] Julian Graham MD 11 months ago Hematemesis, presence of nausea not specified [facility] Julian Graham MD 1 year ago Hematemesis, presence of nausea not specified [facility] Julian Graham MD Upcoming Appointments YARN INSPECTOR - Recent and Past Visits Recent Visits [...] [place] 02/18/20 Office Visit Aletha Anand PAC [facility] [place] Showing recent visits within past 460 days with a meds authorizing provider and meeting all other requirements Future Appointments No visits were found meeting these conditions. Showing future appointments within next 90 days with a meds authorizing provider and meeting all other requirements ITECTURAL DRAFTER documented in this encounter Plan of Treatment Upcoming Encounters Date Type Department Care Team (Late st Contact Info) Description 08/15/2025 10:00 AM ARCHITECTURAL DRAFTER Office Visit [facility] - Cardiology [facility] #2 [place] [address] Carolee Tay APRN, SILVER LAP MACHINE TENDER [address] [place] [address] documented as of this encounter Visit Diagnoses Diagnosis Arthralgia, unspecified joint documented in this encounter Additional Health Concerns Infection Onset Date Last Indicated Resolved Time COVID - 19 07/20/2024 07/20/2024 07/20/2024 3:10 AM ARCHITECTURAL DRAFTER Assessment Noted Time PHQ-9 Depression Total Score: 0 04/24/20 20 10:39 AM CDT documented as of this encounter Care Teams Cardiology Clinical Consultant Relationship Specialty Start Date End Date Julian Encarnacion MD #[address] [address] PCP - General Family Medicine 03/28/20 04/23/22 Travis Torrez MD [address] [place] [address] PCP - General Family Medicine 05/21/22 Carolee Tay APRN, SILVER LAP MACHINE TENDER [address] [place] [address] Nurse Practitioner Certified Nurse Practitioner 08/20/24 documented as of this encounter
--- OUTSIDE RECORDS SUMMARY | 2024-10-28 10:44 | XMS_ITS | Encounter Summary ---
Author Organization [facility] Address [address] [place] [address] Phone Care Team Providers Care Lookback Coordinator Name Role Phone Valerie Grimaldo MD Primary Care Provider + [phone] Cody Polk MD Unavailable Wen Nelson MD Unavailable José Miguel Alva MD Unavailable Drew Martínez MD Unavailable [phone] Lopez Nunez DO Unavailable [phone] Autumn Chapman OD Unavailable [phone] Alcon Camacho MD Unavailable [phone] Tess Brennan MD Unavailable [phone] Tee Moura MD Unavailable [phone] Michel Linda MD Unavailable Verena Crespo MD Unavailable [phone] Unknown, Notinfile Primary Care Provider Unavail able Julian Encarnacion MD Primary Care Provider Encounter Details Date Type Department Care Team (Late st Contact Info) Description 01/16/2017 Orders Only [facility] [address] [place] [address] Valerie Grimaldo MD [address] [place] [address] Diabetes mellitus without complication (HCC) (Primary Dx) Social History Tobacco Use Types Packs/Day Years Used Date Smoking Tobacco: Never Alcohol Use Standard Drinks/Week Comments No 0 (1 standard drink = 0.6 oz pur e alcohol) Comments Unknown Sex and Gender Information Value Date Recorded Sex Assigned at Not on file Legal Sex Female 11:50 PM OPEN DIE INSPECTOR Gender Identity Not on file Sexual Orientation Not on file documented as of this encounter Plan of Treatment Scheduled Orders Name Type Priority Associated Diagnoses Orde r Schedule Hemoglobin A1c Lab Routine Diabetes mellitus without complication (HCC) Expected: 02/04/2017, Expires: 01/16/2018 Microalbumin / creatinine ratio, urine, random Lab Routine Diabetes mellitus without complication (HCC) Expected: 02/04/2017, Expires: 01/16/2018 Comprehensive metabolic panel Lab Routine Diabetes mellitus without complication (HCC) Expected: 02/04/2017, Expires: 01/16/2018 Cholesterol, LDL, direct Lab Routine Diabetes mellitus without complication (HCC) Expected: 02/04/2017, Expires: 01/16/2018 documented as of this encounter Visit Diagnoses Diagnosis Diabetes mellitus without complication (HCC)- Primary Type II or unspecified type diabetes mellitus without mention of complication, not stated as uncontrolled documented in this encounter Care Teams Lookback Coordinator Relationship Specialty Start Date End Date Valerie Grimaldo MD PCP - General 09/27/16 03/16/20 Unknown, Notinfile PCP - General 03/17/20 11/21/20 Julian Encarnacion MD 2 [facility] [address] [place] [address] PCP - General Family Medicine 11/22/20 [place] [address] [facility] [address] [place] [address] Pulmonary Disease 02/27/17 Wen Nelson MD [address] [place] [address] Obstetrics and Gynecology 02/27/17 José Miguel Alva MD [address] [email or web address] [address] [place] [address] Gynecologic Oncology 02/27/17 Drew Martínez MD [address] [facility] [address] [place] [address] Orthopedic Surgery 02/27/17 Lopez Nunez DO [address] [place] [address] Consulting Physician Gastroenterology 04/25/17 Autumn Chapman OD [address] [place] [address] Optometry 04/28/17 [place] [address] [facility] [address] [place] [address] Consulting Physician Cardiology 09/07/17 Tess Brennan MD [address] [address] Referring Physician Gastroenterology 09/25/17 Tee Moura MD [address] [address] Referring Physician Surgery 11/29/17 Michel Linda MD [address] [address] Referring Physician General Surgery 03/11/19 Verena Crespo MD 2 [facility] [address] [address] Consulting Physician Nephrology 03/13/19 documented as of this encounter
--- OUTSIDE RECORDS SUMMARY | 2024-10-28 10:44 | XMS_ITS | Encounter Summary ---
Author Organization [facility] Address [address] [place] [address] Phone Care Team Providers Care Retail Office Associate Name Role Phone Travis Torrez MD Primary Care Provider [phone] Carolee Tay APRN, CHUTE TAPPER Unavailable Reason for Visit * Reason Comments Medication Refill Encounter Details Date Type Department Care Team (Late Contact Info) Description 03/06/2023 Refill [facility] - Family Medicine [facility] #2 [place] [address] Julian Encarnacion MD #[address] [address] Medication Refill Social History Tobacco Use Types [...] st Contact Info) Description 08/15/2025 10:00 AM CARBONIZER TESTER Office Visit [facility] - Cardiology [facility] #2 [place] [address] Carolee Tay APRN, CHUTE TAPPER #2 [place] [address] documented as of this encounter Visit Diagnoses Not on filedocumented in this encounter Additional Health Concerns Infection Onset Date Last Indicated Resolved Time COVID - 19 07/20/2024 07/20/2024 07/20/2024 3:10 AM CARBONIZER TESTER Assessment Noted Time PHQ-9 Depression Total Score: 0 04/24/20 10:39 AM CDT documented as of this encounter Care Teams Retail Office Associate Relationship Specialty Start Date End Date Travis Torrez MD [address] [place] [address] PCP - General Family Medicine 05/21/22 Carolee Tay APRN, CHUTE TAPPER #2 [place] [address] Nurse Practitioner Certified Nurse Practitioner 08/20/24 documented as of this encounter
--- OUTSIDE RECORDS SUMMARY | 2024-10-28 10:44 | XMS_ITS | Encounter Summary ---
Author Organization [facility] Address [address] [place] [address] Phone Care Team Providers Care Gas Engineer Name Role Phone Valerie Grimaldo MD Primary Care Provider + [phone] Cody Polk MD Unavailable Wen Nelson MD Unavailable José Miguel Alva MD Unavailable [phone] Drew Martínez MD Unavailable +[phone] Lopez Nunez DO Unavailable [phone] Autumn Chapman OD Unavailable [phone] Alcon Camacho MD Unavailable [phone] Tess Brennan MD Unavailable [phone] Tee Moura MD Unavailable [phone] Michel Linda MD Unavailable Verena Crespo MD Unavailable [phone] Unknown, Notinfile Primary Care Provider Unavail able Julian Encarnacion MD Primary Care Provider Encounter Details Date Type Department Care Team (Late st Contact Info) Description 12/20/2016 Orders Only [facility] [address] [place] [address] Lisa Romano LPN Social History Tobacco Use Types Packs/Day Years Used Date Smoking Tobacco: Never Alcohol Use Standard Drinks/Week Comments No 0 (1 standard drink = 0.6 oz pur e alcohol) Comments Unknown Sex and Gender Information Value Date Recorded Sex Assigned at Not on file Legal Sex Female 11:50 PM CLEAN UP PERSON Gender Identity Not on file Sexual Orientation Not on file documented as of this encounter Plan of Treatment Not on file documented as of this encounter Visit Diagnoses Not on filedocumented in this encounter Care Teams Gas Engineer Relationship Specialty Start Date End Date Valerie Grimaldo MD PCP - General 09/27/16 03/16/20 Unknown, Notinfile PCP - General 03/17/20 11/21/20 Julian Encarnacion MD 2 [facility] [address] [place] [address] PCP - General Family Medicine 11/22/20 [place] [address] [facility] [address] [place] [address] Pulmonary Disease 02/27/17 Wen Nelson MD [address] [place] [address] Obstetrics and Gynecology 02/27/17 José Miguel Alva MD [address] [place] [address] Gynecologic Oncology 02/27/17 Drew Martínez MD [address] [place] [address] [place] [address] Orthopedic Surgery 02/27/17 Lopez Nunez DO [address] [address] Consulting Physician Gastroenterology 04/25/17 Autumn Chapman OD [address] [place] [address] Optometry 04/28/17 [place] [address] [facility] [address] [place] [address] Consulting Physician Cardiology 09/07/17 Tess Brennan MD [address] [facility] [address] [address] Referring Physician Gastroenterology 09/25/17 Tee Moura MD [address] [facility] [address] [address] Referring Physician Surgery 11/29/17 Michel Linda MD 2 [facility] [address] [address] Referring Physician General Surgery 03/11/19 Verena Crespo MD 2 [facility] [address] [address] Consulting Physician Nephrology 03/13/19 documented as of this encounter
--- OUTSIDE RECORDS SUMMARY | 2024-10-28 10:44 | XMS_ITS | Encounter Summary ---
Author Organization [facility] Address [address] [place] [address] Phone Care Team Providers Care Mirror Maker Name Role Phone Valerie Grimaldo MD Primary Care Provider + [phone] Cody Polk MD Unavailable [phone] Wen Nelson MD Unavailable José Miguel Alva MD Unavailable +[phone] Drew Martínez MD Unavailable +[phone] Lopez Nunez DO Unavailable [phone] Autumn Chapman OD Unavailable +[phone] Alcon Camacho MD Unavailable [phone] Tess Brennan MD Unavailable [phone] Tee Moura MD Unavailable [phone] Michel Linda MD Unavailable Verena Crespo MD Unavailable +[phone] Unknown, Notinfile Primary Care Provider Unavail able Julian Encarnacion MD Primary Care Provider Encounter Details Date Type Department Care Team (Late st Contact Info) Description 10/01/2017 Orders Only [facility] Provider, MD Tayler [address] [place] [address] Social History Tobacco Use Types Packs/Day Years Used Date Smoking Tobacco: Never Smokeless Tobacco: Never Alcohol Use Standard Drinks/Week Comments No 0 (1 standard drink = 0.6 oz pur e alcohol) Comments No Sex and Gender Information Value Date Recorded Sex Assigned at Not on file Legal Sex Female 11:50 PM SAWMILL MOULDER OPERATOR Gender Identity Not on file Sexual [...] on filedocumented in this encounter Care Teams Mirror Maker Relationship Specialty Start Date End Date Valerie Grimaldo MD PCP - General 09/27/16 03/16/20 Unknown, Notinfile PCP - General 03/17/20 11/21/20 Julian Encarnacion MD [address] [address] [place] [address] PCP - General Family Medicine 11/22/20 [place] [address] [facility] H2335 [place] [address] Pulmonary Disease 02/27/17 Wen Nelson MD [address] [address] Obstetrics and Gynecology 02/27/17 José Miguel Alva MD [address] [facility] [address] [place], [place] [id number] Gynecologic Oncology 02/27/17 Drew Martínez MD [address] [place] [address] Orthopedic Surgery 02/27/17 Lopez Nunez DO [address] [place] [address] Consulting Physician Gastroenterology 04/25/17 Autumn Chapman OD [address] [place] [address] Optometry 04/28/17 [place] [address] [facility] [address] [place] [address] Consulting Physician Cardiology 09/07/17 Tess Brennan MD [address] [facility] [facility] [address] [address] Referring Physician Gastroenterology 09/25/17 Tee Moura MD [address] [address] Referring Physician Surgery 11/29/17 Michel Linda MD [address] [address] [address] Referring Physician General Surgery 03/11/19 Verena Crespo MD [address] [address] Consulting Physician Nephrology 03/13/19 documented as of this encounter
--- OUTSIDE RECORDS SUMMARY | 2024-10-28 10:44 | XMS_ITS | Encounter Summary ---
Author Organization [facility] Address [address] [place] [address] Phone Care Team Providers Care Stock Order Lister Name Role Phone Julian Encarnacion MD Primary Care Provider [phone] Travis Torrez MD Primary Care Provider [phone] Carolee Tay APRN, MANAGER DISCOVERY Unavailable Reason for Visit * Reason Comments Medication Refill Encounter Details Date Type Department Care Team (Late st Contact Info) Description 01/12/2021 Refill [facility] #2 [place] [address] Julian Encarnacion MD #[address] [address] Medication Refill Social History Tobacco Use Types [...] current use of insulin ([facility]) [facility] - Julian Hines MD 5 months ago Type 2 diabetes mellitus without complication, with long-term current use of insulin ([facility]) [facility] - Julian Hines MD 7 months ago Hematemesis, presence of nausea not specified [facility] Medical [facility] Julian Hines MD 8 months ago Hematemesis, presence of nausea not specified [facility] Julian Hines MD 9 months ago Preop cardiovascular exam [facility] Family Medicine Julian Graham MD Upcoming Appointments Future Appointments In 5 days Julian Encarnacion MD [facility] Family [facility], [facility] In 1 month Cristina Garcia APN, KIM [facility] Oncology Services, [facility] [address] PUBLIC WORKS COMMISSIONER - Recent and Past Visits Recent Visits Date Type Provider Dept 10/18/20 Office Visit [facility] 07/20/20 Office Visit Julian Encarnacion MD [facility] 06/08/20 Office Visit [facility] 05/10/20 Office Visit Julian Encarnacion MD [facility] 03/23/20 Office Visit Julian Encarnacion MD [facility] 02/18/20 Office Visit Aletha Anand PAC [facility] Showing recent visits within past 460 days with a meds authorizing provider and meeting all other requirements Future Appointments Date Type Provider Dept 01/17/21 Appointment Julian Encarnacion MD [facility] Showing future appointments within next 90 days with a meds authorizing provider and meeting all other requirements documented in this encounter Plan of Treatment Upcoming Encounters Date Type Department Care Team (Late st Contact Info) Description 08/15/2025 10:00 AM CLINICAL TRIAL HEAD Office Visit [facility] Medical [facility] - [facility] - [place] #2 [place] [address] Carolee Tay APRN, KIM #2 [place] [address] documented as of this encounter Visit Diagnoses Not on filedocumented in this encounter Additional Health Concerns Infection Onset Date Last Indicated Resolved Time COVID - 19 07/20/2024 07/20/2024 07/20/2024 3:10 AM CLINICAL TRIAL HEAD Assessment Noted Time PHQ-9 Depression Total Score: 0 04/24/20 10:39 AM CDT documented as of this encounter Care Teams Stock Order Lister Relationship Specialty Start Date End Date Julian Encarnacion MD [address] [address] PCP - General Family Medicine 03/28/20 04/23/22 Travis Torrez MD [address] [place] [address] PCP - General Family Medicine 05/21/22 Carolee Tay APRN, KIM [address] [place] [address] Nurse Practitioner Certified Nurse Practitioner 08/20/24 documented as of this encounter
--- OUTSIDE RECORDS SUMMARY | 2024-10-28 10:44 | XMS_ITS | Encounter Summary ---
Author Organization [facility] Address [address] [place] [address] Phone Care Team Providers Care Paper Bundler Name Role Phone Julian Encarnacion MD Primary Care Provider Travis Torrez MD Primary Care Provider [phone] Carolee Tay APRN, CODER Unavailable Reason for Visit * Reason Comments Medication Refill Encounter Details Date Type Department Care Team (Late st Contact Info) Description 02/15/2021 Refill [facility] Medicine [facility] #2 [place] [address] Julian Encarnacion MD #[address] [address] Medication Refill Social History Tobacco Use Types [...] with long-term current use of insulin (HCC) [facility] - Julian Hines MD 7 months ago Type 2 diabetes mellitus without complication, with long-term current use of insulin (HCC) [facility] Julian Graham MD 8 months ago Hematemesis, presence of nausea not specified [facility] Julian Graham MD 9 months ago Hematemesis, presence of nausea not specified [facility] Julian Graham MD 10 months ago Preop cardiovascular exam [facility] Julian Graham MD Upcoming Appointments Future Appointments In 1 week Cristina Garcia, OSCILLOGRAPH TECHNICIAN, CODER [facility] Oncology Services, [facility] BIOLOGICAL SCIENCES INSTRUCTOR - Recent and Past Visits Recent Visits Date Type Provider Dept 10/18/20 Office Visit [facility] 07/20/20 Office Visit [facility]acion MD [facility] 06/08/20 Office Visit Julian Encarnacion MD [facility] 05/10/20 Office Visit Julian Encarnacion MD [facility] 03/23/20 Office Visit [facility]acion MD [facility] 02/18/20 Office Visit Aletha Anand, CAITLIN [facility] Showing recent visits within past 460 days [...] st Contact Info) Description 08/15/2025 10:00 AM SEARCH ENGINE OPTIMIZER Office Visit [facility] - Cardiology [facility] #2 [place] [address] Carolee Tay APRN, CODER #2 [place] [address] documented as of this encounter Visit Diagnoses Not on filedocumented in this encounter Additional Health Concerns Infection Onset Date Last Indicated Resolved Time COVID - 19 07/20/2024 07/20/2024 07/20/2024 3:10 AM SEARCH ENGINE OPTIMIZER Assessment Noted Time PHQ-9 Depression Total Score: 0 04/24/20 10:39 AM CDT documented as of this encounter Care Teams Paper Bundler Relationship Specialty Start Date End Date Julian Encarnacion MD #[address] [address] PCP - General Family Medicine 03/28/20 04/23/22 Travis Torrez MD [address] [place] [address] PCP - General Family Medicine 05/21/22 Carolee Tay APRN, CODER #2 [place] [address] Nurse Practitioner Certified Nurse Practitioner 08/20/24 documented as of this encounter
--- OUTSIDE RECORDS SUMMARY | 2024-10-28 10:44 | XMS_ITS | Encounter Summary ---
Author Organization [facility] Address [address] [place] [address] Phone Care Team Providers Care Dynamite Reclaimer Name Role Phone Valerie Grimaldo MD Primary Care Provider + [phone] Cody Polk MD Unavailable Wen Nelson MD Unavailable José Miguel Alva MD Unavailable [phone] Drew Martínez MD Unavailable [phone] Lopez Nunez DO Unavailable [phone] Autumn Chapman OD Unavailable [phone] Alcon Camacho MD Unavailable [phone] Tess Brennan MD Unavailable [phone] Tee Moura MD Unavailable [phone] Michel Linda MD Unavailable Verena Crespo MD Unavailable [phone] Unknown, Notinfile Primary Care Provider Unavail able Julian Encarnacion MD Primary Care Provider Encounter Details Date Type Department Care Team (Late st Contact Info) Description 09/05/2017 Orders Only [facility] [address] [place] [address] Valerie Grimaldo MD [address] [place] [address] Social History Tobacco Use Types Packs/Day Years Used Date Smoking Tobacco: Never Smokeless Tobacco: Never Alcohol Use Standard Drinks/Week Comments No 0 (1 standard drink = 0.6 oz pur e alcohol) Comments No Sex and Gender Information Value Date Recorded Sex Assigned at Not on file Legal Sex Female 11:50 PM DIVING JUDGE Gender Identity Not on file Sexual Orientation Not on file documented as of this encounter Plan of Treatment Not on file documented as of this encounter Procedures Procedure Name Priority Date/Time Associated Diagnosis Comments SCAN - RADIOLOGY/IMAGING 09/05/2017 10:47 AM DIVING JUDGE documented in this encounter Results * SCAN - RADIOLOGY/IMAGING (09/05/2017 10:47 AM DIVING JUDGE) Anatomical Region Laterality Modality Other Valerie Grimaldo MD Final Resu lt documented in this encounter Visit Diagnoses Not on filedocumented in this encounter Care Teams Dynamite Reclaimer Relationship Specialty Start Date End Date Valerie Grimaldo MD PCP - General 09/27/16 03/16/20 Unknown, Notinfile PCP - General 03/17/20 11/21/20 Julian Encarnacion MD 2 [facility] [address] [place] [address] PCP - General Family Medicine 11/22/20 [place] [address] [facility] H[address] [place] [address] Pulmonary Disease 02/27/17 Wen Nelson MD [address] [place] [address] Obstetrics and Gynecology 02/27/17 Joés Miguel Alva MD [address] [facility] [address] [place], [place] [address] Gynecologic Oncology 02/27/17 Drew Martínez MD [address] [place] [address] Orthopedic Surgery 02/27/17 Lopez Nunez DO [address] [place] [address] Consulting Physician Gastroenterology 04/25/17 Autumn Chapman OD [address] [place] [address] Optometry 04/28/17 [place] [address] [address] [facility] [address] [place] [address] Consulting Physician Cardiology 09/07/17 Tess Brennan MD [address] [address] Referring Physician Gastroenterology 09/25/17 Tee Moura MD [address] [facility] [address] [address] Referring Physician Surgery 11/29/17 Michel Linda MD [address] [facility] [address] [address] Referring Physician General Surgery 03/11/19 Verena Crespo MD [address] [facility] [address] [address] Consulting Physician Nephrology 03/13/19 documented as of this encounter
--- OUTSIDE RECORDS SUMMARY | 2024-10-28 10:44 | XMS_ITS | Encounter Summary ---
Author Organization [facility] Address [address] [place] [address] Phone Care Team Providers Care Fabrication Department Supervisor Name Role Phone Julian Encarnacion MD Primary Care Provider [phone] Travis Torrez MD Primary Care Provider Carolee Tay APRN, MANAGER CT Unavailable Reason for Visit * Reason Comments Medication Refill Encounter Details Date Type Department Care Team (Late st Contact Info) Description 04/05/2021 Refill [facility] Family [facility] #2 [place] [address] Julian Encarnacion MD #[address] [address] Medication Refill Social History Tobacco Use Types [...] RN - 04/05/2021 1:35 PM CDT Per [place] PDMP last fill date 02/19/21. Medication failed [...] Visits 1 month ago Arthralgia, unspecified joint [facility] Julian Hines MD 5 months ago Type 2 diabetes mellitus without complication, with long-term current use of insulin ([facility]) [facility] Julian Graham MD 8 months ago Type 2 diabetes mellitus without complication, with long-term current use of insulin ([facility]) [facility] Julian Graham MD 10 months ago Hematemesis, presence of nausea not specified [facility] Julian Graham MD 11 months ago Hematemesis, presence of nausea not specified [facility] Julian Graham MD Upcoming Appointments GRINDING MACHINE OPERATOR - Recent and Past Visits Recent Visits Date Type Provider Dept 02/21/21 Office Visit Julian Encarnacion MD [facility] 10/18/20 Office Visit Julian Encarnacion MD [facility] 07/20/20 Office Visit Julian Encarnacion MD [facility] 06/08/20 Office Visit Julian Encarnacion MD [facility] 05/10/20 Office Visit Julian Encarnacion MD [facility] 03/23/20 Office Visit Julian Encarnacion MD [facility] 02/18/20 Office Visit Aletha Anand, PAC [facility] Showing recent visits within past 460 [...] st Contact Info) Description 08/15/2025 10:00 AM OUTPATIENT ADMITTING CLERK Office Visit [facility] - Cardiology [facility] #2 [place] [address] Carolee Tay APRN, MANAGER CT [address]2 [place] [address] documented as of this encounter Visit Diagnoses Diagnosis Arthralgia, unspecified joint documented in this encounter Additional Health Concerns Infection Onset Date Last Indicated Resolved Time COVID - 19 07/20/2024 07/20/2024 07/20/2024 3:10 AM OUTPATIENT ADMITTING CLERK Assessment Noted Time PHQ-9 Depression Total Score: 0 04/24/20 10:39 AM CDT documented as of this encounter Care Teams Fabrication Department Supervisor Relationship Specialty Start Date End Date Julian Encarnacion MD #[address] [address] PCP - General Family Medicine 03/28/20 04/23/22 Travis Torrez MD [address] [place] [address] PCP - General Family Medicine 05/21/22 Carolee Tay APRN, KIM #[address] [place] [address] Nurse Practitioner Certified Nurse Practitioner 08/20/24 documented as of this encounter
--- OUTSIDE RECORDS SUMMARY | 2024-10-28 10:44 | XMS_ITS | Encounter Summary ---
Author Organization [facility] Address [address] [place] [address] Phone Care Team Providers Care Hotel Clerk Name Role Phone Valerie Grimaldo MD Primary Care Provider + [phone] Cody Polk MD Unavailable [phone] Wen Nelson MD Unavailable José Miguel Alva MD Unavailable [phone] Drew Martínez MD Unavailable [phone] Lopez Nunez DO Unavailable [phone] Autumn Chapman OD Unavailable [phone] Alcon Camacho MD Unavailable [phone] Tess Brennan MD Unavailable [phone] Tee Moura MD Unavailable [phone] Michel Linda MD Unavailable Verena Crespo MD Unavailable [phone] Unknown, Notinfile Primary Care Provider Unavail able Julian Encarnacion MD Primary Care Provider Encounter Details Date Type Department Care Team (Late st Contact Info) Description 09/15/2017 Orders Only [facility] Provider, MD Tayler [address] [place] [address] Social History Tobacco Use Types Packs/Day Years Used Date Smoking Tobacco: Never Smokeless Tobacco: Never Alcohol Use Standard Drinks/Week Comments No 0 (1 standard drink = 0.6 oz pur e alcohol) Comments No Sex and Gender Information Value Date Recorded Sex Assigned at Not on file Legal Sex Female 11:50 PM SEAT JOINER Gender Identity Not on file Sexual Orientation [...] on filedocumented in this encounter Care Teams Hotel Clerk Relationship Specialty Start Date End Date Valerie Grimaldo MD PCP - General 09/27/16 03/16/20 Unknown, Notinfile PCP - General 03/17/20 11/21/20 Julian Encarnacion MD [address] [address] PCP - General Family Medicine 11/22/20 [place] [address] [facility] H[address] [place] [address] Pulmonary Disease 02/27/17 Wen Nelson MD [address] [place] [address] Obstetrics and Gynecology 02/27/17 José Miguel Alva MD [address] [facility] [address] [place] [address] Gynecologic Oncology 02/27/17 Drew Martínez MD [address] [place] [address] Orthopedic Surgery 02/27/17 Lopez Nunez DO [address] [place] [address] Consulting Physician Gastroenterology 04/25/17 Autumn Chapman OD 406 [place] [address] Optometry 04/28/17 [place] [address] [facility] 204 [place] [address] Consulting Physician Cardiology 09/07/17 Tess Brennan MD 2 [facility] [address] [place] [address] Referring Physician Gastroenterology 09/25/17 Tee Moura MD [address] [facility] [address] [address] Referring Physician Surgery 11/29/17 Michel Linda MD [address] [address] Referring Physician General Surgery 03/11/19 Verena Crespo MD 2 [facility] [address] [address] Consulting Physician Nephrology 03/13/19 documented as of this encounter
--- OUTSIDE RECORDS SUMMARY | 2024-10-28 10:44 | XMS_ITS | Encounter Summary ---
Author Organization [facility] Address [address] [place] [address] Phone Care Team Providers Care Marble Setter Helper Name Role Phone Julian Encarnacion MD Primary Care Provider Travis Torrez MD Primary Care Provider [phone] Carolee Tay APRN, HOOK TENDER Unavailable Reason for Visit * Reason Comments Medication Refill Encounter Details Date Type Department Care Team (Late st Contact Info) Description 07/20/2021 Refill [facility] Family [facility] #2 [place] [address] Julian Encarnacion MD #[address] [address] Medication Refill Social History Tobacco Use Types [...] (GLUCOPHAGE-XR) 500 MG TABLET SR 24 HR [[id number]] 1031 Status: Active Ordering user: Julian Encarnacion MD 11/15/20 103 Authorized by: Julian Encarnacion MD Frequency: ??11/15/20 - Until Discontinued Released by: Julian Encarnacion MD 11/15/20 103 [id number] RATIONS MANAGER documented in this encounter Plan of Treatment Upcoming Encounters Date Type Department Care Team (Late st Contact Info) Description 08/15/2025 10:00 AM ALTERATIONS MANAGER Office Visit [facility] - Cardiology - [place] #2 [place] [address] Carolee Tay APRN, HOOK TENDER #2 [place] [address] documented as of this encounter Visit Diagnoses Not on filedocumented in this encounter Additional Health Concerns Infection Onset Date Last Indicated Resolved Time COVID - 19 07/20/2024 07/20/2024 07/20/2024 3:10 AM ALTERATIONS MANAGER Assessment Noted Time PHQ-9 Depression Total Score: 0 04/24/20 10:39 AM CDT documented as of this encounter Care Teams Marble Setter Helper Relationship Specialty Start Date End Date Julian Encarnacion MD #[address] [address] PCP - General Family Medicine 03/28/20 04/23/22 Travis Torrez MD [address] [place] [address] PCP - General Family Medicine 05/21/22 Carolee Tay APRN, HOOK TENDER #2 [place] [address] Nurse Practitioner Certified Nurse Practitioner 08/20/24 documented as of this encounter
--- OUTSIDE RECORDS SUMMARY | 2024-10-28 10:44 | XMS_ITS | Encounter Summary ---
Author Organization [facility] Address [address] [place] [address] Phone Care Team Providers Care Director Of Cath Lab Name Role Phone Julian Encarnacion MD Primary Care Provider [phone] Travis Torrez MD Primary Care Provider Carolee Tay APRN, PROFILE SAW SETUP OPERATOR Unavailable Reason for Visit * Reason Comments Medication Refill Encounter Details Date Type Department Care Team (Late st Contact Info) Description 12/08/2020 Refill [facility] - [facility] #2 [place] [address] Julian Encarnacion MD #[address] [address] Medication Refill Social History Tobacco Use Types [...] st Contact Info) Description 08/15/2025 10:00 AM MECHANICS SUPERVISOR Office Visit [facility] - [facility] #2 [place] [address] Carolee Tay APRN, PROFILE SAW SETUP OPERATOR #2 [place] [address] documented as of this encounter Visit Diagnoses Not on filedocumented in this encounter Additional Health Concerns Infection Onset Date Last Indicated Resolved Time COVID - 19 07/20/2024 07/20/2024 07/20/2024 3:10 AM MECHANICS SUPERVISOR Assessment Noted Time PHQ-9 Depression Total Score: 0 04/24/20 10:39 AM CDT documented as of this encounter Care Teams Director Of Cath Lab Relationship Specialty Start Date End Date Julian Encarnacion MD #[address] [address] PCP - General Family Medicine 03/28/20 04/23/22 Travis Torrez MD [address] [place] [address] PCP - General Family Medicine 05/21/22 Carolee Tay APRN, KIM #[address] [place] [address] Nurse Practitioner Certified Nurse Practitioner 08/20/24 documented as of this encounter
== END 2024-10-28 09:56 | disposition home or self-care (01) ==
PROVIDERS: PCP Family Medicine; Visit Provider Internal Medicine Nephrology
DX: E83.52 Hypercalcemia (principal)
CPT/HCPCS: 78306; A9503

== ENCOUNTER 2024-10-28 14:29 | Outpatient (CLI) | payer MEDICARE, SELFPAY ==
--- NOTE | ~2024-10-28 | DEXA_ITS ---
Bone Density Report Name: HUONG CORDOVA Age: 74 Sex: Female Ethnicity: White Date of : 1950 Indication: postmenopausal; screening for osteoporosis; height loss; cancer; hysterectomy; Referring Provider: ISABEL MCCABE Study: Bone densitometry was performed. Exam Date: October 28, 2024 Accession number: [id number] Bone Density: Region BMD T-score Z-score Classification AP Spine(L1-L4) 1.028 -0.2 2.3 Normal Femoral Neck (Left) 0.828 -0.2 1.9 Normal Total Hip (Left) 0.925 -0.1 1.7 Normal Femoral Neck (Right) 0.807 -0.4 1.7 Normal Total Hip (Right) 0.981 0.3 2.1 Normal Total Hip Mean 0.953 0.1 1.9 Normal World Health Organization criteria for BMD impression classify patients as: Normal (T-score at or above -1.0), Osteopenia (T-score between -1.0 and -2.5), or Osteoporosis (T-score at or below -2.5). 10-year Fracture Risk: FRAX not reported because: All T-scores for Spine Total, Hip Total, Femoral Neck at or above -1.0 Clinical Information Provided by Patient: Has the following medical conditions: Cancer, Hysterectomy Patient maximum height was 63 Menopause Age: 50 No regular weight bearing exercise Does not regularly consume dairy products Drinks caffeinated beverages Onset of menses at age 9 Number of children 2 Impression: The patient has normal bone mass. Discussion: BONE DENSITY IS ABOVE THE MINIMUM DESIRABLE LEVEL AT ALL SKELETAL SITES TESTED. This patient?s bone mineral density is above the minimum desirable level (T-score -1.0 or better) at all sites measured. The patient should follow a healthful lifestyle (good nutrition with adequate calcium and vitamin D, and appropriate weight-bearing exercise). Follow-Up: Consider repeating this study in 5 years or sooner if there is some new clinical indication. Reported by: MYLES on 10/28/2024 3:06:00 PM. Reviewed, dictated and finalized at location ANasir JOHN
--- OUTSIDE RECORDS SUMMARY | 2024-10-28 15:13 | XMS_ITS | Encounter Summary ---
Author Organization [facility] Address [address] [place] [address] Phone Care Team Providers Care Sales Communications Manager Name Role Phone Valerie Grimaldo MD Primary Care Provider + [phone] Cody Polk MD Unavailable [phone] Wen Nelson MD Unavailable José Miguel Alva MD Unavailable [phone] Drew Martínez MD Unavailable [phone] Lopez Nunez DO Unavailable [phone] Atuumn Chapman OD Unavailable [phone] Alcon Camacho MD Unavailable [phone] Tess Brennan MD Unavailable [phone] Tee Moura MD Unavailable [phone] Michel Linda MD Unavailable Verena Crespo MD Unavailable [phone] Unknown, Notinfile Primary Care Provider Unavail able Julian Encarnacion MD Primary Care Provider Encounter Details Date Type Department Care Team (Late st Contact Info) Description 10/27/2017 Orders Only [facility] Provider, MD Tayler [address] [place] [address] Social History Tobacco Use Types Packs/Day Years Used Date Smoking Tobacco: Never Smokeless Tobacco: Never Alcohol Use Standard Drinks/Week Comments No 0 (1 standard drink = 0.6 oz pur e alcohol) Comments No Sex and Gender Information Value Date Recorded Sex Assigned at Not on file Legal Sex Female 11:50 PM VMWARE ARCHITECT Gender Identity Not on file Sexual Orientation [...] on filedocumented in this encounter Care Teams Sales Communications Manager Relationship Specialty Start Date End Date Valerie Grimaldo MD PCP - General 09/27/16 03/16/20 Unknown, Notinfile PCP - General 03/17/20 11/21/20 Julian Encarnacion MD [address] [address] [place] [address] PCP - General Family Medicine 11/22/20 [place] [address] [facility] [address] [place] [address] Pulmonary Disease 02/27/17 Wen [place] MD [address] [address] Obstetrics and Gynecology 02/27/17 José Miguel Alva MD [address] [facility] [address] [place], [place] [id number] Gynecologic Oncology 02/27/17 Drew Martínez MD [address] [place] [address] Orthopedic Surgery 02/27/17 Lopez Nunez DO [address] [place] [address] Consulting Physician Gastroenterology 04/25/17 Autumn Chapman OD [address] [place] [address] Optometry 04/28/17 [place] [address] [address] [facility] [address] [place] [address] Consulting Physician Cardiology 09/07/17 Tess Brennan MD [address] [address] [address] Referring Physician Gastroenterology 09/25/17 Tee Moura MD [address] [place] [address] [address] Referring Physician Surgery 11/29/17 Michel Linda MD [address] [place] [address] [address] Referring Physician General Surgery 03/11/19 Verena Crespo MD [address] [address] Consulting Physician Nephrology 03/13/19 documented as of this encounter
--- OUTSIDE RECORDS SUMMARY | 2024-10-28 15:13 | XMS_ITS | CONTINUITY OF CARE DOCUMENT ---
Author Name be lr Address Unknown Organization [facility] Address [address] [place] [address] [address] [place] [address] Phone [phone] Care Team Providers Care Loop Drier Operator Name Role Phone Choco Linda MD Unavailable
--- OUTSIDE RECORDS SUMMARY | 2024-10-28 15:13 | XMS_ITS | Continuity of Care Document ---
Author Organization [facility] Address [address] [place] [address] Phone Care Team Providers Care Rope Walker Name Role Phone Aline FRIEDMAN, Julian Unavailable Unavailable Procedures Procedure Date Work/medical disability examination I Moises Herman Record Review X-ray exam of knee, 3 views Advance Directives Directive Yes / No Effective Date File Name No Information Encounters Encounter Description Practice Location Reason(s) For Visit Diagnoses Date Provider Providers Copied on Encounter Work/medical disability examination I Moises Herman [facility], [address], [id number], [place] tel:[phone] [facility] No Information [address] Jordan. [address] [facility] [address] [place] [address], [place], [place], [id number] , . tel:[phone] Family History Family Member Type Diagnosis Age At Onset No Information Payers Payer name Insurance type Covered constitution party ID Authoriza tiarmani(s) [facility] [id number] Social History Type Description Quantity Date Captured [...]
--- OUTSIDE RECORDS SUMMARY | 2024-10-28 15:13 | XMS_ITS | Clinical Summary ---
Author Organization [facility] Address [address] [place] [address] Care Team Providers Care Equipment Operation Instructor Name Role Phone Cody Polk MD Unavailable [phone] Wen Nelson MD Unavailable José Miguel Alva MD Unavailable [phone] Drew Martínez MD Unavailable [phone] Lopez Nunez DO Unavailable [phone] Autumn Chapman OD Unavailable [phone] Alcon Camacho MD Unavailable [phone] Tess Brennan MD Unavailable [phone] Tee Moura MD Unavailable [phone] Michel Linda MD Unavailable Verena Crespo MD Unavailable [phone] Julian Encarnacion MD Primary Care Provider [phone] Allergies Active Allergy Reactions Criticality Noted Date [...] long-term current use of insulin ([facility]) Use with glucose strips - monitor glucose checks 2 times daily. 1 each 8 Active cyanocobalamin (Vitamin B-12) 1,000 mcg tabletIndications: Type 2 diabetes mellitus with other diabetic kidney complication, without long-term current use of insulin ([facility]) Take 1 tablet (1,000 mcg total) by mouth daily 90 tablet 3 9 Active pen needle, diabetic 32 gauge x 11/12 needleIndications: Type 2 diabetes mellitus with other diabetic kidney complication, without long-term current use of insulin ([facility]) 1 Dose daily 100 each 11 [...] long-term current use of insulin ([facility]) Take 500 mg by mouth daily with breakfast Active warfarin (COUMADIN) 1 mg tabletIndications: Recurrent pulmonary embolism ([facility]) Take 1 -3 tablets by mouth [...] 58 and associated diastolic dysfunction persisting Dr. aMier History of endometrial cancer 04/25/2017 Gastric ulcer [...] controlled Assessment & Plan (08/10/2019 11:00 AM COAL PICKER): Patient with improvement in HgbA1C from 10.4 [...] sleep apnea syndrome, 327.23. AXIS B: Polysomnography, [address]. 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 Dr. [...] (non-ST elevated myoc ardial infarction) ([facility]) 09/07/2017 Acute saddle pulmonary embol ism with acute cor pulmonale ([facility]) 09/07/2017 Family History Medical History Relation [...] on file Legal Sex Female 11:50 PM COAL PICKER Gender Identity Not on file Sexual Orientation Not on file Occupation Industry Job Start Date Job End Date Retired Not on file Not on file Not on file Obstetrics History Para Term AB IAB SAB Ectopic Multiple Livin g Live Births 2 2 2 0 0 2 Date Outcome GA Total Labor Labor/2nd/3rd Weight Sex Type Anes PTL Endi A1 A5 Name Clin Term Term Last Filed Vital Signs Vital Sign Reading Time Taken Comments Blood Pressure 110/60 08/10/2019 9:44 AM COAL PICKER Pulse 68 08/10/2019 9:44 AM COAL PICKER Temperature 36.1 C (97 F) 05/25/2019 7:56 AM COAL PICKER Respiratory Rate 12 08/10/2019 9:44 AM COAL PICKER Oxygen Saturation 97% 08/10/2019 9:44 AM COAL PICKER Inhaled Oxygen Concentration - - Weight 113.4 kg (250 lb) 08/10/2019 9:44 AM COAL PICKER Height 157.5 cm (5' 2 ) 01/26/2019 [...] COMPREHENSIVE METABOLIC PANEL Routine 08/07/2019 9:31 AM COAL PICKER Type 2 diabetes mellitus with stage 4 chronic kidney disease, with long-term current use of insulin (HCC) Hypertension complicating diabetes (HCC) ALBUMIN CREATININE RATIO, URINE Routine 08/07/2019 9:31 AM COAL PICKER Type 2 diabetes mellitus with stage 4 chronic kidney disease, with long-term current use of insulin (HCC) Hypertension complicating diabetes (HCC) SCREENING MAMMOGRAM 2D BILATERAL Schedule Routine, Read Routine (OP Routine) 10/27/2017 10:50 AM CDT Encounter for screening mammogram for malignant neoplasm of breast HEPATITIS C ANTIBODY Routine 09/05/2017 1:37 PM COAL PICKER SERUM LIPID PANEL Routine 07/24/2016 9:0 5 AM COAL PICKER from Last 3 Months or Most Recently [...] MD LAB BLOOD ORDERABLES Final Result [facility] [address] [address] * (ABNORMAL) Albumin Creatinine Ratio, Urine (08/07/2019 9:31 AM COAL PICKER) Creatinine, ur 142 20 - 275 mg/dL [facility] [place] Microalbumin, ur 17.3 See Note: mg/dL [facility] [place] Comment: Reference Range: Reference Range Not established Microalbumin/creat ratio 122(H) <30 mcg/mg creat [facility] - [place] Comment: The ADA defines abnormalities in albumin excretion as follows: Category Result (mcg/mg creatinine) Normal <30 Microalbuminuria 30-299 Clinical albuminuria > OR = 300 The ADA recommends that at least two of three specimens collected within a 3-6 month period be abnormal before considering a patient to be within a diagnostic category. Urine 08/07/2019 9:31 AM COAL PICKER 08/07/2019 9:31 AM COAL PICKER Narrative Resulting Agency Comment Performing Organization Information: Site ID: [place] Name: [facility] Address: [address] [address] Director: Cody Castro D.O. MPH us Valerie Grimaldo MD LAB URINE ORDERABLES Final Result [facility] - [place], [place] * (ABNORMAL) Comprehensive metabolic panel (08/07/2019 9:31 AM COAL PICKER) Glucose 148(H) 65 - 99 mg/dL [facility] [place] Comment: Fasting reference interval For someone without known diabetes, a glucose value >125 mg/dL indicates that they may have diabetes and this should be confirmed with a follow-up test. BUN 29(H) 7 - 25 mg/dL [facility] [place] Creatinine 1.72(H) 0.60 - 0.93 mg/dL [facility] [place] Comment: For patients >49 years of age, the reference limit for Creatinine is approximately 13% higher for people identified as -[place]. eGFR NON-AFR. TANZANIAN 30(L) > OR = 60 mL/min/1. 73m2 [...] [place] Blood specimen (specimen) 08/07/2019 9:31 AM COAL PICKER 08/07/2019 9:31 AM COAL PICKER Narrative Resulting Agency Comment Performing Organization Information: Site ID: [id number] Name: [facility] Address: [address] [place] [address] [place] [address] Director: Cody Castro D.O., MPH us Valerie [...] * Hepatitis C antibody (09/05/2017 1:37 PM COAL PICKER) Hep C Ab Negative Negative [facility] Blood specimen (specimen) 09/05/2017 1:37 PM COAL PICKER 09/05/2017 8:35 PM COAL PICKER Narrative [facility] - 09/05/2017 9:21 PM COAL PICKER Valerie Grimaldo MD LAB MICROBIOLOGY - GENERAL ORDERABLES Edited Result - Final [facility] [address] [address] Department of Laboratories [place] [id number] * (ABNORMAL) Serum lipid panel (07/24/2016 9:05 AM COAL PICKER) Cholesterol 222(H) 100 - 200 mg/dl CDR [...] last revised 2016. Serum 07/24/2016 9:05 AM COAL PICKER Valerie Grimaldo MD LAB BLOOD ORDERABLES Final Result [facility] HISTORICAL RESULTS from Last 3 Months or Most Recently Relevant to Health Maintenance [facility] HMO REF MEDICARE [facility] MEDICARE ADV [facility] HMO REF Advance Directives For more information, please contact: [phone] Documents on File Type Date Recorded Patient Cable Driller Expl anation ADVANCE DIRECTIVE 05/01/2018 2:42 PM POWER OF WATCH TRAIN ASSEMBLER ADVANCE DIRECTIVE 05/01/2018 2:42 PM Care Teams Equipment Operation Instructor Relationship Specialty Start Date End Date Julian Encarnacion MD [address] [facility] [address] [place] [address] PCP - General Family Medicine 11/22/20 [place] [address] [address] [facility] [address] [place], [place] [id number] Pulmonary Disease 02/27/17 Wen Nelson MD [address] [place] [address] Obstetrics and Gynecology 02/27/17 José Miguel Alva MD [address] [facility] [address] [place] [address] Gynecologic Oncology 02/27/17 Drew Martínez MD [address] [place] [address] Orthopedic Surgery 02/27/17 Lopez Nunez DO [address] [place] [address] Consulting Physician Gastroenterology 04/25/17 Autumn Chapman OD [address] [facility] [place] [address] Optometry 04/28/17 [place] [address] [address] Consulting Physician Cardiology 09/07/17 Tess Brennan MD [address] [place] [address] [address] Referring Physician Gastroenterology 09/25/17 Tee Moura MD 2 [facility] [id number] [address] Referring Physician Surgery 11/29/17 Michel Linda MD 2 [facility] [id number] [address] Referring Physician General Surgery 03/11/19 Verena Crespo MD 2 [facility] [address] [address] Consulting Physician Nephrology 03/13/19
--- OUTSIDE RECORDS SUMMARY | 2024-10-28 15:13 | XMS_ITS | Encounter Summary ---
Author Organization [facility] Address [address] [place] [address] Phone Care Team Providers Care Warehouse Freight Handler Name Role Phone Valerie Grimaldo MD Primary Care Provider + [phone] Cody Polk MD Unavailable [phone] Wen Nelson MD Unavailable José Miguel Alva MD Unavailable [phone] Drew Martínez MD Unavailable [phone] Lopez Nunez DO Unavailable [phone] Autumn Chapman OD Unavailable [phone] Alcon Camacho MD Unavailable [phone] Tess Brennan MD Unavailable [phone] Tee Moura MD Unavailable [phone] Michel Linda MD Unavailable Verena Crespo MD Unavailable [phone] Unknown, Notinfile Primary Care Provider Unavail able Julian Encarnacion MD Primary Care Provider Encounter Details Date Type Department Care Team (Late st Contact Info) Description 10/10/2017 Orders Only [facility] Provider, MD Tayler [address] [place] [address] Social History Tobacco Use Types Packs/Day Years Used Date Smoking Tobacco: Never Smokeless Tobacco: Never Alcohol Use Standard Drinks/Week Comments No 0 (1 standard drink = 0.6 oz pur e alcohol) Comments No Sex and Gender Information Value Date Recorded Sex Assigned at Not on file Legal Sex Female 11:50 PM PASSENGER BOOKING CLERK Gender Identity Not on file Sexual [...] filedocumented in this encounter Care Teams Warehouse Freight Handler Relationship Specialty Start Date End Date Valerie Grimaldo MD PCP - General 09/27/16 03/16/20 Unknown, Notinfile PCP - General 03/17/20 11/21/20 Julian Encarnacion MD [address] [address] [place] [address] PCP - General Family Medicine 11/22/20 [place] [address] [facility] [address] [place] [address] Pulmonary Disease 02/27/17 Wen Nelson MD [address] [address] Obstetrics and Gynecology 02/27/17 José Miguel Alva MD [address] [facility] [address] [place], [place] [address] Gynecologic Oncology 02/27/17 Drew Martínez MD [address] [place] [address] Orthopedic Surgery 02/27/17 Lopez Nunez DO [address] [place] [address] Consulting Physician Gastroenterology 04/25/17 Autumn Chapman OD [address] [place] [address] Optometry 04/28/17 [place] [address] [address] [facility] [address] [place] [address] Consulting Physician Cardiology 09/07/17 Tess Brennan MD [address] [address] Referring Physician Gastroenterology 09/25/17 Tee Moura MD [address] [address] Referring Physician Surgery 11/29/17 Michel Linda MD [address] [address] Referring Physician General Surgery 03/11/19 Verena Crespo MD [address] [address] Consulting Physician Nephrology 03/13/19 documented as of this encounter
--- OUTSIDE RECORDS SUMMARY | 2024-10-28 15:13 | XMS_ITS | Clinical Summary ---
Author Organization [facility] Address [address], [address] [address] Phone Care Team Providers Care Cyber Security Systems Engineer Name Role Phone Travis Torrez MD Primary Care Provider [phone] Carolee Tay APRN, CLUB ATTENDANT Unavailable Allergies Active Allergy Reactions Criticality Noted [...] Department Care Team Description 08/19/2024 3:00 PM NITRATING ACID MIXER Office Visit [facility] - [facility] [address] [place] [address] Carolee Tay, BLOOD BANK ATTENDANT, CLUB ATTENDANT Coronary artery disease with angina pectoris, unspecified vessel or lesion type, unspecified whether [place] or transplanted heart (HCC) (Primary Dx); Hyperlipidemia, [...] drink = 0.6 oz pur e alcohol) [facility] Utilities Answer Date Recorded In the past 12 months has [place], oil, or water [employer] threatened to shut off services in your home? No 07/20/2024 Social Connection and Isolation Panel [NHANES] A nswer Date Recorded In a typical week, how many times do you talk on the phone with family, friends, or neighbors? Patient declined 07/20/2024 How often do you get togethe r with friends or relatives? Patient declined 07/20/2024 How often do you attend confucianist or cheondoism serv ices? Patient declined 07/20/2024 Do you belong to any clubs o r organizations such as confucianist groups, unions, fraternal or athletic groups, or [...] Total Score - Questions 1-9 0 03/31 [facility] - Occupational Stress Questionnaire Answer Date [...] any time in the past 12 m [facility], were you homeless or living in a care home (including now)? No 07/20/2024 Comments No Sex and Gender Information Value Date Recorded Sex Assigned at Not on file Legal Sex Female 7:37 PM CDT Gender Identity Not on file Sexual Orientation Not on file Last Filed Vital Signs Vital Sign Reading Time Taken Comments Blood Pressure 126/62 08/19/2024 3:01 PM NITRATING ACID MIXER Pulse 81 08/19/2024 3:01 PM NITRATING ACID MIXER Temperature 36.3 C (97.3 F) 08/19/2024 3:01 PM NITRATING ACID MIXER Respiratory Rate 16 08/19/2024 3:01 PM NITRATING ACID MIXER Oxygen Saturation 97% 08/19/2024 3:01 PM NITRATING ACID MIXER Inhaled Oxygen Concentration - - Weight 105.2 kg (232 lb) 08/19/2024 3:01 PM NITRATING ACID MIXER Height 157.5 cm (5' 2 ) 08/19/2024 3:01 PM NITRATING ACID MIXER Body Mass Index 42.43 08/19/2024 3:01 PM NITRATING ACID MIXER Plan of Treatment Upcoming Encounters Date Type Department Care Team (Late st Contact Info) Description 08/15/2025 10:00 AM NITRATING ACID MIXER Office Visit [facility] - [facility] [address] [place] [phone] Carolee Tay, BLOOD BANK ATTENDANT, CLUB ATTENDANT [address] [place] [id number] Health Maintenance Due Date Last Done Comments [...] this topic Medical Devices Implanted Type Area Oil Well Perforator Operator Device Identifier Shelf Expiration Date Model / Serial / Lot Stent Coronary Leta Xience Everolimus Eluting [id number] - [id number] Implanted:Qty: 1 on 04/23/2018 by Joan Avalos MD at [facility] IMPLANT N/A: Coronary [employer] 02/17/2019 [id number] Stent Coronary Leta Xience Everolimus Eluting [id number] - [id number] Implanted:Qty: 1 on 04/23/2018 by Joan Avalos MD at [facility] IMPLANT N/A: Coronary [employer] 01/15/2019 [id number] Procedures Procedure Name Priority Date/Time Associated Diagnosis Comments HEMOGLOBIN A1C W/ ESTIMATED GLUCOSE STAT 07/20/2024 5:18 AM NITRATING ACID MIXER CMP (COMPREHENSIVE METABOLIC PANEL) STAT 07/19/2024 9:48 PM NITRATING ACID MIXER [facility] SCREENING BILATERAL DIGITAL W CAD W HARLEEN Routine 08/06/2022 3:00 PM NITRATING ACID MIXER Encounter for screening mammogram for malignant neoplasm of breast Asymptomatic menopausal state [facility] BONE DENSITOMETRY AXIAL SKELETON Routine 08/06/2022 2:30 PM NITRATING ACID MIXER Encounter for screening mammogram for malignant neoplasm of breast Asymptomatic menopausal state STOOL, OCCULT BLOOD, DIAGNOSTIC, VIA GUAIAC STAT 04/30/2020 11:15 AM NITRATING ACID MIXER HEPATITIS PANEL ACUTE (AHP) Routine 02/25/2019 3:42 AM CDT from Last 3 Months or Most Recently Relevant to Health Maintenance Results * (ABNORMAL) Hemoglobin A1C w/ Estimated Glucose (07/20/2024 5:18 AM NITRATING ACID MIXER) HGB-A1C 6.3(H) 4.0 - 6.0 % 07/20/2024 5:57 AM NITRATING ACID MIXER [facility] Est Average Glucose 134.1 mg/dL 07/20/2024 5:57 AM NITRATING ACID MIXER [facility] Blood Venipuncture / Unknown 07/20/2024 5:18 AM NITRATING ACID MIXER 07/20/2024 5:37 AM NITRATING ACID MIXER Narrative [facility] - 07/20/2024 5:57 AM NITRATING ACID MIXER HEMOGLOBIN A1C: DIABETIC PATIENTS: WELL-CONTROLLED: 6.2 - 7.0 INTERMEDIATE WELL-CONTROLLED: 7.0 - 9.0 POORLY-CONTROLLED: >9.0 Specimens containing greater than 5% of Hemoglobin F may result in lower than expected % HbA1C results. us Elsa Nevarez BLOOD BANK ATTENDANT, CLUB ATTENDANT CHEMISTRY ORDERABLES Final Result [facility] [address] [place] [address] * (ABNORMAL) CMP (Comprehensive Metabolic Panel) (07/19/2024 9:48 PM NITRATING ACID MIXER) SODIUM 140 136 - 145 mmol/L 07/19/2024 10:34 PM [facility] POTASSIUM 4.3 3.5 - 5.1 mmol/L 07/19/2024 10:34 PM [facility] CHLORIDE 108(H) 98 - 107 mmol/L 07/19/2024 10:34 PM [facility] CO2, VENOUS 23 22 - 30 mmol/L 07/19/2024 10:34 PM [facility] ANION GAP 13.3 <18.0 mmol/L 07/19/2024 10:34 PM [facility] GLUCOSE 188(H) 70 - 99 mg/dL 07/19/2024 10:34 PM [facility] BUN 28(H) 10 - 20 mg/dL 07/19/2024 10:34 PM [facility] CREATININE, BLOOD 2.17(H) 0.60 - 1.00 mg/dL 07/19/2024 10:34 PM [facility] BUN/CREATININE RATIO 13 12 - 20 ratio 07/19/2024 10:34 PM [facility] TOTAL PROTEIN 7.3 6.0 - 8.0 g/dL 07/19/2024 10:34 PM [facility] ALBUMIN 3.7 3.5 - 5.0 g/dL 07/19/2024 10:34 PM [facility] A/G RATIO 1.0 1.0 - 2.2 07/19/2024 10:34 PM [facility] CALCIUM 10.1 8.7 - 10.5 mg/dL 07/19/2024 10:34 PM [facility] T BILI 0.5 0.2 - 1.2 mg/dL 07/19/2024 10:34 PM [facility] SGOT (AST) 17 6 - 42 U/L 07/19/2024 10:34 PM NITRATING ACID MIXER [facility] SGPT (ALT) 7 6 - 55 U/L 07/19/2024 10:34 PM NITRATING ACID MIXER [facility] ALKALINE PHOSPHATASE 93 40 - 150 U/L 07/19/2024 10:34 PM NITRATING ACID MIXER [facility] GFR, ESTIMATED 23(L) >=60 07/19/2024 10:34 PM NITRATING ACID MIXER [facility] Comment: Creatinine Clearance is the preferred criteria for selecting drug dose adjustments in renally impaired patients. The GFR is provided as additional pertinent clinical information. GFR is reported in mL/min/1.73 sq m. Calculation based on the Chronic Kidney Disease Epidemiology Collaboration (CKD- EPI) equation refit without adjustment for race. GFR, EST. 27(L) >=60 025 10:34 PM NITRATING ACID MIXER [facility] GFR, EST. NONAFRICAN 22(L) >=60 07/19/2024 10:34 PM NITRATING ACID MIXER [facility] Blood Venipuncture / Unknown 07/19/2024 9:48 PM NITRATING ACID MIXER 07/19/2024 10:08 PM NITRATING ACID MIXER us Oswaldo Sue MD CHEMISTRY ORDERABLES Final Result [facility] [address] [place] [address] * [facility] SCREENING BILATERAL DIGITAL W CAD W HARLEEN (08/06/2022 3:00 PM NITRATING ACID MIXER) Anatomical Region Laterality Modality breast Bilateral Mammography 08/06/2022 3:12 PM NITRATING ACID MIXER Narrative 08/07/2022 3:59 PM NITRATING ACID MIXER - DUY SCREENING BILATERAL DIGITAL W CAD [...] to exams dated: 03/28/2020, 09/02/2019, 03/08/2019, 01/01/2018 [facility], 10/30/2017, and 10/27/2017 [facility]. BREAST TISSUE:There are scattered fibroglandular densities [...] exam. Electronically signed by: Dafne urena/radha:08/07/2022 11:22:27 [employer] Punch Press Operator(s): RT Shilo(R)(M), [facility] letter sent: Normal Exam Reading location: [facility] BI-RADS: 2 Benign Procedure Note Dafne Cordero [...] to exams dated: 03/28/2020, 09/02/2019, 03/08/2019, 01/01/2018 [facility], 10/30/2017, and 10/27/2017 [facility]. BREAST TISSUE:There are scattered fibroglandular densities [...] exam. Electronically signed by: Dafne urena/radha:08/07/2022 11:22:27 [employer] Punch Press Operator(s): RT Shilo(R)(M), [facility] letter sent: Normal Exam Reading location: [facility] BI-RADS: 2 Benign us Travis Torrez MD IMG MAMMO ORDERABLES Final Resu lt * [facility] BONE DENSITOMETRY AXIAL SKELETON (08/06/2022 2:30 PM NITRATING ACID MIXER) Anatomical Region Laterality Modality BODY N/A Computed Radiogr aphy 08/07/2022 6:48 AM NITRATING ACID MIXER Impressions 08/07/2022 6:51 AM NITRATING ACID MIXER IMPRESSION: Low bone mass REFERENCE: Bone mineral [...] of Osteoporosis (http://www.nof.org/professionals/clinical-guidelines) Narrative 08/07/2022 6:51 AM NITRATING ACID MIXER EXAM DESCRIPTION: [facility] BONE DENSITOMETRY AXIAL SKELETON REASON FOR STUDY: 72 y/o year old F with given history of screening. Oil Well Perforator Operator/Model: [employer] ([id number]/N [id number]) CLINICAL INFORMATION: Current height: 62 inches Maximum [...] Brinda Neal M.D. TW: TW Report ID: [id number] Reading Location: [id number] Procedure Note Brinda Neal MD - 08/07/2022 EXAM DESCRIPTION: [facility] BONE DENSITOMETRY AXIAL SKELETON REASON FOR STUDY: 72 y/o year old F with given history of screening. Oil Well Perforator Operator/Model: [employer] ([id number]/N [id number]) CLINICAL INFORMATION: Current height: 62 inches Maximum [...] Brinda Neal M.D. TW: TW Report ID: [id number] Reading Location: [place] [address] IMPRESSION: Low bone mass REFERENCE: Bone mineral [...] Occult Blood - Diagnostic (04/30/2020 11:15 AM NITRATING ACID MIXER) [facility] Signature OCCULT BLOOD DIAG, GI BLEED Positive(A ) Negative 04/30/2020 11:53 AM NITRATING ACID MIXER [facility] Stool Non-Phlebotomy Collection / Unknown 04/30/2020 11:15 AM NITRATING ACID MIXER 04/30/2020 11:41 AM NITRATING ACID MIXER Leland Rowan MD BODY FLUIDS & STOOLS ORDERABLES Final Result [facility] [address] [place] [address] * Hepatitis Panel Acute (AHP)-BELÉN (02/25/2019 3:42 AM CDT) HEPATITIS A IGM ANTIBODY NON DETECTED NON DETECTED 02/25/2019 3:20 PM CDT [facility] Comment: IGM Antibodies to HAV not detected. Does not exclude early acute or recovered HAV infection. HEP B CORE AB (IGM) NON DETECTED NON DETECTED 02/25/2019 3:20 PM CDT [facility] Comment: IGM anti-HBC not detected. Does not exclude the possibility of exposure to or infection with HBV. HEPATITIS B SURFACE ANTIGEN NON DETECTED NON DETECTED 02/25/2019 3:20 PM CDT [facility] Comment: A nonreactive test result [...] 0.12 <1 S/CO 02/25/2019 3:20 PM CDT [facility] Comment: Signal/Cutoff ratio < 0.79 is Nondetected Signal/Cutoff ratio 0.80-0.99 is Grayzone Signal/Cutoff ratio > 0.99 is Detected Supplemental assays are recommended if signal/cutoff ratio is >/=1.00. Signal/cutoff ratio result >/= 5.00 is 97% predictive of positivity for recombinant immunoblot assay (RIBA) and will be reported to the [place] [facility] Public [facility] as required. Blood specimen (specimen) Butterfly Puncture / Unknown 02/25/2019 3:42 AM CDT 02/25/2019 3:42 AM CDT us Verena Crespo MD HEMATOLOGY ORDERABLES F inal Result [facility] [address] [place] [address], from Last 3 Months or Most Recently Relevant to Health Maintenance Insurance MEDICARE C [employer] [facility] Advance Directives Documents on File Type Date Recorded Patient Safety Inspector Expl anation Advance Care Planning Discussion 05/10/2020 [...] measures to stabilize the patient. Care Teams Cyber Security Systems Engineer Relationship Specialty Start Date End Date Travis Torrez MD [address] [place] [address] PCP - General Family Medicine 05/21/22 Carolee Tay APRN, CLUB ATTENDANT [address] [place] [address] Nurse Practitioner Certified Nurse Practitioner 08/20/24
--- OUTSIDE RECORDS SUMMARY | 2024-10-28 15:13 | XMS_ITS | Encounter Summary ---
Author Organization [facility] Address [address] [place] [address] Phone Care Team Providers Care Boil Off Machine Operator Cloth Name Role Phone Valerie Grimaldo MD Primary Care Provider + [phone] Cody Polk MD Unavailable [phone] Wen Nelson MD Unavailable José Miguel Alva MD Unavailable [phone] Drew Martínez MD Unavailable [phone] Lopez Nunez DO Unavailable [phone] Autumn Chapman OD Unavailable [phone] Alcon Camacho MD Unavailable [phone] Tess Brennan MD Unavailable [phone] Tee Moura MD Unavailable [phone] Michel Linda MD Unavailable Verena Crespo MD Unavailable [phone] Unknown, Notinfile Primary Care Provider Unavail able Julian Encarnacion MD Primary Care Provider Encounter Details Date Type Department Care Team (Late st Contact Info) Description 11/26/2017 Orders Only [facility] Provider, MD Tayler [address] [place] [address] Social History Tobacco Use Types Packs/Day Years Used Date Smoking Tobacco: Never Smokeless Tobacco: Never Alcohol Use Standard Drinks/Week Comments No 0 (1 standard drink = 0.6 oz pur e alcohol) Comments No Sex and Gender Information Value Date Recorded Sex Assigned at Not on file Legal Sex Female 11:50 PM GARAGE DOOR SERVICE TECHNICIAN Gender Identity Not on file Sexual [...] on filedocumented in this encounter Care Teams Boil Off Machine Operator Cloth Relationship Specialty Start Date End Date Valerie Grimaldo MD PCP - General 09/27/16 03/16/20 Unknown, Notinfile PCP - General 03/17/20 11/21/20 Julian Encarnacion MD [address] [address] [place] [address] PCP - General Family Medicine 11/22/20 [place] [address] [facility] [address] [place] [address] Pulmonary Disease 02/27/17 Wen Nelson MD [address] [address] Obstetrics and Gynecology 02/27/17 José Miguel Alva MD [address] [facility] [address] [place], [place] [id number] Gynecologic Oncology 02/27/17 Drew Martínez MD [address] [place] [address] Orthopedic Surgery 02/27/17 Lopez Nunez DO [address] [place] [address] Consulting Physician Gastroenterology 04/25/17 Autumn Chapman OD [address] [place] [address] Optometry 04/28/17 [place] [address] [facility] [address] [place] [address] Consulting Physician Cardiology 09/07/17 Tess Brennan MD [address] [facility] [address] [address] Referring Physician Gastroenterology 09/25/17 Tee Moura MD [address] [address] Referring Physician Surgery 11/29/17 Michel Linda MD [address] [address] Referring Physician General Surgery 03/11/19 Verena Crespo MD [address] [address] Consulting Physician Nephrology 03/13/19 documented as of this encounter
--- OUTSIDE RECORDS SUMMARY | 2024-10-28 15:13 | XMS_ITS | Encounter Summary ---
Author Organization [facility] Address [address] [place] [address] Phone Care Team Providers Care Property Maintenance Technician Name Role Phone Valerie Grimaldo MD Primary Care Provider + [phone] Cody Polk MD Unavailable [phone] Wen Nelson MD Unavailable [phone] José Miguel Alva MD Unavailable [phone] Drew Martínez MD Unavailable [phone] Lopez Nunez DO Unavailable [phone] Autumn Chapman OD Unavailable [phone] Alcon Camacho MD Unavailable [phone] Tess Brennan MD Unavailable [phone] Tee Moura MD Unavailable [phone] Michel Linda MD Unavailable Verena Crespo MD Unavailable [phone] Unknown, Notinfile Primary Care Provider Unavail able Julian Encarnacion MD Primary Care Provider Encounter Details Date Type Department Care Team (Late st Contact Info) Description 11/07/2017 Orders Only [facility] Provider, MD Tayler [address] [place] [address] Social History Tobacco Use Types Packs/Day Years Used Date Smoking Tobacco: Never Smokeless Tobacco: Never Alcohol Use Standard Drinks/Week Comments No 0 (1 standard drink = 0.6 oz pur e alcohol) Comments No Sex and Gender Information Value Date Recorded Sex Assigned at Not on file Legal Sex Female 11:50 PM BSS SOLUTION ARCHITECT Gender Identity Not on file Sexual [...] on filedocumented in this encounter Care Teams Property Maintenance Technician Relationship Specialty Start Date End Date Valerie Grimaldo MD PCP - General 09/27/16 03/16/20 Unknown, Notinfile PCP - General 03/17/20 11/21/20 Julian Encarnacion MD [address] [address] [place] [address] PCP - General Family Medicine 11/22/20 [place] [address] [facility] [address] [place] [address] Pulmonary Disease 02/27/17 Wen Nelson MD [address] [address] Obstetrics and Gynecology 02/27/17 José Miguel Alva MD [address] [facility] [address] [place], [place] [id number] Gynecologic Oncology 02/27/17 Drew Martínez MD [address] [place] [address] Orthopedic Surgery 02/27/17 Lopez Nunez DO [address] [place] [address] Consulting Physician Gastroenterology 04/25/17 Autumn Chapman OD [address] [place] [address] Optometry 04/28/17 [place] [address] [facility] [facility] [address] [place] [address] Consulting Physician Cardiology 09/07/17 Tess Brennan MD [address] [facility] [address] [address] Referring Physician Gastroenterology 09/25/17 Tee Moura MD [address] [address] Referring Physician Surgery 11/29/17 Michel Linda MD [address] [address] Referring Physician General Surgery 03/11/19 Verena Crespo MD [address] [address] Consulting Physician Nephrology 03/13/19 documented as of this encounter
--- OUTSIDE RECORDS SUMMARY | 2024-10-28 15:13 | XMS_ITS | Referral Summary ---
Author Organization [facility] Address [address] [place] [address] Care Team Providers Care Vacuum Technician Name Role Phone Cody Polk MD Unavailable [phone] Wen Nelson MD Unavailable José Miguel Alva MD Unavailable [phone] Drew Martínez MD Unavailable [phone] Lopez Nunez DO Unavailable [phone] Autumn Chapman OD Unavailable [phone] Alcon Camacho MD Unavailable [phone] Tess Brennan MD Unavailable [phone] Tee Moura MD Unavailable [phone] Michel Linda MD Unavailable Verena Crespo MD Unavailable [phone] Julian Encarnacion MD Primary Care Provider Allergies [...] controlled Assessment & Plan (08/10/2019 11:00 AM SOLUTION ADVISOR): Patient with improvement in HgbA1C from 10.4 [...] sleep apnea syndrome, 327.23. AXIS B: Polysomnography, [address]. Ischemic heart disease due to coronary artery [...] on file Legal Sex Female 11:50 PM SOLUTION ADVISOR Gender Identity Not on file Sexual Orientation Not on file Occupation Industry Job Start Date Job End Date Retired Not on file Not on file Not on file Last Filed Vital Signs Vital Sign Reading Time Taken Comments Blood Pressure 110/60 08/10/2019 9:44 AM SOLUTION ADVISOR Pulse 68 08/10/2019 9:44 AM SOLUTION ADVISOR Temperature 36.1 C (97 F) 05/25/2019 7:56 AM SOLUTION ADVISOR Respiratory Rate 12 08/10/2019 9:44 AM SOLUTION ADVISOR Oxygen Saturation 97% 08/10/2019 9:44 AM SOLUTION ADVISOR Inhaled Oxygen Concentration - - Weight 113.4 kg (250 lb) 08/10/2019 9:44 AM SOLUTION ADVISOR Height 157.5 cm (5' 2 ) 01/26/2019 9:45 AM CDT Body Mass Index 45.73 01/26/2019 9:45 AM CDT Plan of Treatment Not on file Procedures Procedure Name Priority Date/Time Associated Diagnosis Comments HEMOGLOBIN A1C Routine 11/23/2019 9:21 AM CDT Type 2 diabetes mellitus with stage 4 chronic kidney disease, with long-term current use of insulin (HCC) COMPREHENSIVE METABOLIC PANEL Routine 08/07/2019 9:31 AM SOLUTION ADVISOR Type 2 diabetes mellitus with stage 4 chronic kidney disease, with long-term current use of insulin (HCC) Hypertension complicating diabetes (HCC) ALBUMIN CREATININE RATIO, URINE Routine 08/07/2019 9:31 AM SOLUTION ADVISOR Type 2 diabetes mellitus with stage 4 chronic kidney disease, with long-term current use of insulin (HCC) Hypertension complicating diabetes (HCC) SCREENING MAMMOGRAM 2D BILATERAL Schedule Routine, Read Routine (OP Routine) 10/27/2017 10:50 AM CDT Encounter for screening mammogram for malignant neoplasm of breast HEPATITIS C ANTIBODY Routine 09/05/2017 1:37 PM SOLUTION ADVISOR SERUM LIPID PANEL Routine 07/24/2016 9:0 5 AM SOLUTION ADVISOR from Last 3 Months or Most Recently [...] Final Result Performing Organization Address [facility] Co de Phone Number ASIYA Knight [address] [facility] [place] [address] * (ABNORMAL) Albumin Creatinine Ratio, Urine (08/07/2019 9:31 AM SOLUTION ADVISOR) Creatinine, ur 142 20 - 275 mg/dL [facility] [place] Microalbumin, ur 17.3 See Note: mg/dL [facility] [place] Comment: Reference Range: Reference Range Not established Microalbumin/creat ratio 122(H) <30 mcg/mg creat [facility] [place] Comment: The ADA defines abnormalities in albumin excretion as follows: Category Result (mcg/mg creatinine) Normal <30 Microalbuminuria 30-299 Clinical albuminuria > OR = 300 The ADA recommends that at least two of three specimens collected within a 3-6 month period be abnormal before considering a patient to be within a diagnostic category. Urine 08/07/2019 9:31 AM SOLUTION ADVISOR 08/07/2019 9:31 AM SOLUTION ADVISOR Narrative Resulting Agency Comment Performing Organization Information: Site ID: [facility]ERSON Name: [facility] Address: [address] [place] [address] Director: Cody Castro D.O., MPH us Valerie Grimaldo MD LAB URINE ORDERABLES Final Result Performing Organization Address [facility] Co de Phone Number ASIYA ACSIAN [facility] * (ABNORMAL) Comprehensive metabolic panel (08/07/2019 9:31 AM SOLUTION ADVISOR) Glucose 148(H) 65 - 99 mg/dL [facility] [place] Comment: Fasting reference interval For someone without known diabetes, a glucose value >125 mg/dL indicates that they may have diabetes and this should be confirmed with a follow-up test. BUN 29(H) 7 - 25 mg/dL [facility] [place] Creatinine 1.72(H) 0.60 - 0.93 mg/dL [facility] [place] Comment: For patients >49 years of age, the reference limit for Creatinine is approximately 13% higher for people identified as -Guine[place]. eGFR NON-AFR. SWAZI 30(L) > OR = 60 mL/min/1. 73m2 [facility] [place] EGFR 34(L) > OR = 60 mL/min/1. 73m2 [facility] [place] BUN/creat ratio 17 6 - 22 (calc) [facility] [place] Sodium 141 135 - 146 mmol/L [facility] [place] Potassium, pl 4.3 3.5 - 5.3 mmol/L [facility] [place] Chloride 102 98 - 110 mmol/L [facility] [place] CO2 26 20 - 32 mmol/L [facility] [place] Calcium 9.7 8.6 - 10.4 mg/dL [facility] [place] Protein, sr 7.1 6.1 - 8.1 g/dL [facility] [place] Albumin 4.1 3.6 - 5.1 g/dL [facility] [place] GLOBULIN 3.0 1.9 - 3.7 g/dL (calc) [facility] [place] Alb/glob ratio 1.4 1.0 - 2.5 (calc) [facility] [place] Bilirubin, total 0.6 0.2 - 1.2 mg/dL [facility] [place] Alk phos 123 37 - 153 U/L [facility] [place] AST 10 10 - 35 U/L [facility] [place] ALT (SGPT) 8 6 - 29 U/L [facility] [place] Blood specimen (specimen) 08/07/2019 9:31 AM SOLUTION ADVISOR 08/07/2019 9:31 AM SOLUTION ADVISOR Narrative Resulting Agency Comment Performing Organization Information: Site ID: [place] Name: Asiya Knight Address: [address] [address] Director: Cody Castro D.O., MPH Valerie Grimaldo MD LAB BLOOD ORDERABLES Final Result [facility] [place] * Screening Mammogram 2D Bilateral (10/27/2017 10:50 [...] * Hepatitis C antibody (09/05/2017 1:37 PM SOLUTION ADVISOR) Hep C Ab Negative Negative [facility] Blood specimen (specimen) 09/05/2017 1:37 PM SOLUTION ADVISOR 09/05/2017 8:35 PM SOLUTION ADVISOR Narrative [facility] - 09/05/2017 9:21 PM SOLUTION ADVISOR Valerie Grimaldo MD LAB MICROBIOLOGY - GENERAL ORDERABLES Edited Result - Final NATASHA [address] [address] [place] [address] * (ABNORMAL) Serum lipid panel (07/24/2016 9:05 AM SOLUTION ADVISOR) Cholesterol 222(H) 100 - 200 mg/dl CDR [...] last revised 2016. Serum 07/24/2016 9:05 AM SOLUTION ADVISOR us Valerie Grimaldo MD LAB BLOOD ORDERABLES Final Result CDR HISTORICAL RESULTS from Last 3 Months or Most Recently Relevant to Health Maintenance Insurance [facility] HMO REF [place] [id number] [facility] HMO REF [place] [id number] MEDICARE CIGNA MEDICARE ADV [facility] MDCR HMO REF Advance Directives For more information, please contact: [phone] Documents on File Type Date Recorded Patient Funder Expl anation ADVANCE DIRECTIVE 05/01/2018 2:42 PM POWER OF PRIVACY DIRECTOR ADVANCE DIRECTIVE 05/01/2018 2:42 PM Care Teams Vacuum Technician Relationship Specialty Start Date End Date Julian Encarnacion MD [facility] [address] [place] [address] PCP - General Family Medicine 11/22/20 [place] [address] [facility] [address] [place] [address] Pulmonary Disease 02/27/17 Wen Nelson MD [address] [place] [address] Obstetrics and Gynecology 02/27/17 José Miguel Alva MD [address] [place] [address] Gynecologic Oncology 02/27/17 Drew Martínez MD [address] [place] [address] Orthopedic Surgery 02/27/17 Lopez Nunez DO [address] [place] [address] Consulting Physician Gastroenterology 04/25/17 Autumn Chapman OD [address] [place] [address] Optometry 04/28/17 [place] [address] [facility] [address] [place] [address] Consulting Physician Cardiology 09/07/17 Tess Brennan MD [address] [facility] [address] [address] Referring Physician Gastroenterology 09/25/17 Tee Moura MD [address] [address] Referring Physician Surgery 11/29/17 Michel Linda MD [address] [address] Referring Physician General Surgery 03/11/19 Verena Crespo MD [address] [address] Consulting Physician Nephrology 03/13/19
--- OUTSIDE RECORDS SUMMARY | 2024-10-28 15:13 | XMS_ITS | Encounter Summary ---
Author Organization [facility] Address [address] [place] [address] Phone Care Team Providers Care Edge Inker Heels Name Role Phone Valerie Grimaldo MD Primary Care Provider + [phone] Cody Polk MD Unavailable [phone] Wen Nelson MD Unavailable José Miguel Alva MD Unavailable [phone] Drew Martínez MD Unavailable [phone] Lopez Nunez DO Unavailable [phone] Autumn Chapman OD Unavailable [phone] Alcon Camacho MD Unavailable [phone] Tess Brennan MD Unavailable [phone] Tee Moura MD Unavailable [phone] Michel Linda MD Unavailable Verena Crespo MD Unavailable [phone] Unknown, Notinfile Primary Care Provider Unavail able Julian Encarnacion MD Primary Care Provider Encounter Details Date Type Department Care Team (Late st Contact Info) Description 10/20/2017 Orders Only [facility] Provider, MD Tayler [address] [place] [address] Social History Tobacco Use Types Packs/Day Years Used Date Smoking Tobacco: Never Smokeless Tobacco: Never Alcohol Use Standard Drinks/Week Comments No 0 (1 standard drink = 0.6 oz pur e alcohol) Comments No Sex and Gender Information Value Date Recorded Sex Assigned at Not on file Legal Sex Female 11:50 PM LEGAL SUMMER INTERN Gender Identity Not on file Sexual Orientation [...] on filedocumented in this encounter Care Teams Edge Inker Heels Relationship Specialty Start Date End Date Valerie Grimaldo MD PCP - General 09/27/16 03/16/20 Unknown, Notinfile PCP - General 03/17/20 11/21/20 Julian Encarnacion MD [address] [address] [place] [address] PCP - General Family Medicine 11/22/20 [place] [address] [facility] [address] [place] [address] Pulmonary Disease 02/27/17 eWn Nelson MD [address] [address] Obstetrics and Gynecology 02/27/17 José Miguel Alva MD [address] [facility] [address] [place], [place] [id number] Gynecologic Oncology 02/27/17 Drew Martínez MD [address] [place] [address] Orthopedic Surgery 02/27/17 Lopez Nunez DO [address] [place] [address] Consulting Physician Gastroenterology 04/25/17 Autumn Chapman OD [address] [place] [address] Optometry 04/28/17 [place] [address] [facility] [address] [place] [address] Consulting Physician Cardiology 09/07/17 Tess Brennan MD [address] [address] Referring Physician Gastroenterology 09/25/17 Tee Moura MD [address] [address] Referring Physician Surgery 11/29/17 Michel Linda MD [address] [address] Referring Physician General Surgery 03/11/19 Verena Crespo MD [address] [address] Consulting Physician Nephrology 03/13/19 documented as of this encounter
--- OUTSIDE RECORDS SUMMARY | 2024-10-28 15:14 | XMS_ITS | Encounter Summary ---
Author Organization [facility] Address [address] [place] [address] Phone Care Team Providers Care Supervisor Central Supply Name Role Phone Julian Encarnacion MD Primary Care Provider [phone] Travis Torrez MD Primary Care Provider [phone] Carolee Tay APRN, SOLUTION LEAD Unavailable Reason for Visit * Reason Comments Medication Refill Encounter Details Date Type Department Care Team (Late st Contact Info) Description 10/16/2020 Refill [facility] - Family Medicine [facility] [address] [place] [address] Julian Encarnacion MD [address] [address] Medication Refill Social History Tobacco Use Types [...] with long-term current use of insulin (HCC) [facility] - Julian Hines MD 4 months ago Hematemesis, presence of nausea not specified [facility] Julian Graham MD 5 months ago Hematemesis, presence of nausea not specified [facility] Julian Graham MD 6 months ago Preop cardiovascular exam [facility] Julian Graham MD 8 months ago Coronary artery disease with angina pectoris, unspecified vessel or lesion type, unspecified whether [place] or transplanted heart (HCC) [facility] - Aletha Benson, CAITLIN Upcoming Appointments Future Appointments Tomorrow Julian Encarnacion MD [facility] [place], [facility] In 6 days Cristina Garcia APN, SOLUTION LEAD [facility] Oncology Services, [facility] In [address] VACCINE CLINIC [facility] - [facility] WIND TURBINE PERFORMANCE ENGINEER - Recent and Past Visits Recent Visits Date Type Provider Dept 07/20/20 Office Visit Julian Encarnacion MD [facility] [place] 06/08/20 Office Visit Julian Encarnacion MD [facility] 05/10/20 Office Visit Julian Encarnacion MD [facility] 03/23/20 Office Visit Julian Encarnacion MD [facility] 02/18/20 Office Visit Aletha Anand [facility] Showing recent visits within past 460 days with a meds authorizing provider and meeting all other requirements Future Appointments Date Type Provider Dept 10/18/20 Appointment Julian Encarnacion MD [facility] Showing future appointments within next 90 days with a meds authorizing provider and meeting all other requirements documented in this encounter Plan of Treatment Upcoming Encounters Date Type Department Care Team (Late st Contact Info) Description 08/15/2025 10:00 AM HUB LEAD Office Visit [facility] - [facility] - [place] [address] [place] [address] Carolee Tay APRN, SOLUTION LEAD [address] [place] [address] documented as of this encounter Visit Diagnoses Not on filedocumented in this encounter Additional Health Concerns Infection Onset Date Last Indicated Resolved Time COVID - 19 07/20/2024 07/20/2024 07/20/2024 3:10 AM HUB LEAD Assessment Noted Time PHQ-9 Depression Total Score: 0 04/24/20 10:39 AM CDT documented as of this encounter Care Teams Supervisor Central Supply Relationship Specialty Start Date End Date Julian Encarnacion MD [address] [address] PCP - General Family Medicine 03/28/20 04/23/22 Travis Torrez MD [address] [place] [address] PCP - General Family Medicine 05/21/22 Carolee Tay APRN, SOLUTION LEAD [address] [place] [address] Nurse Practitioner Certified Nurse Practitioner 08/20/24 documented as of this encounter
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
--- OUTSIDE RECORDS SUMMARY | 2024-10-28 15:14 | XMS_ITS | Encounter Summary ---
Author Organization [facility] Address [address] [place] [address] Phone Care Team Providers Care Upholstery Instructor Name Role Phone Valerie Grimaldo MD Primary Care Provider + [phone] Cody Polk MD Unavailable [phone] Wen Nelson MD Unavailable [phone] José Miguel Alva MD Unavailable [phone] Drew Martínez MD Unavailable [phone] Lopez Nunez DO Unavailable [phone] Autumn Chapman OD Unavailable [phone] Alcon Camacho MD Unavailable [phone] Tess Brennan MD Unavailable [phone] Tee Moura MD Unavailable [phone] Michel Linda MD Unavailable Verena Crespo MD Unavailable [phone] Unknown, Notinfile Primary Care Provider Unavail able Julian Encarnacion MD Primary Care Provider Encounter Details Date Type Department Care Team (Late st Contact Info) Description 09/05/2017 Orders Only [facility] Provider, MD Tayler [address] [place] [address] Social History Tobacco Use Types Packs/Day Years Used Date Smoking Tobacco: Never Smokeless Tobacco: Never Alcohol Use Standard Drinks/Week Comments No 0 (1 standard drink = 0.6 oz pur e alcohol) Comments No Sex and Gender Information Value Date Recorded Sex Assigned at Not on file Legal Sex Female 11:50 PM CARPORT ERECTOR Gender Identity Not on file Sexual Orientation Not on file documented as of this encounter Plan of Treatment Not on file documented as of this encounter Procedures Procedure Name Priority Date/Time Associated Diagnosis Comments DISCHARGE LABORATORY CUMULATIVE REPORT 09/05/2017 12:00 AM CARPORT ERECTOR documented in this encounter Results * DISCHARGE LABORATORY CUMULATIVE REPORT (09/05/2017 12:00 AM CARPORT ERECTOR) Narrative 09/05/2017 12:00 AM CARPORT ERECTOR Ordered by an unspecified provider. us Historical Provider LAB BLOOD ORDERABLES Soledad l Result documented in this encounter Visit Diagnoses Not on filedocumented in this encounter Care Teams Upholstery Instructor Relationship Specialty Start Date End Date Valerie Grimaldo MD PCP - General 09/27/16 03/16/20 Unknown, Notinfile PCP - General 03/17/20 11/21/20 Julian Encarnacion MD 2 [facility] [address] [place] [address] PCP - General Family Medicine 11/22/20 [place] [address] [facility] [address] [place] [address] Pulmonary Disease 02/27/17 Wen Nelson MD [address] [place] [address] Obstetrics and Gynecology 02/27/17 José Miguel Alva MD [address] [facility] [address] [place] [address] Gynecologic Oncology 02/27/17 Drew Martínez MD [address] [facility] [address] [place] [address] Orthopedic Surgery 02/27/17 Lopez Nunez DO [address] [place] [address] Consulting Physician Gastroenterology 04/25/17 Autumn Chapman OD [address] [place] [address] Optometry 04/28/17 [place] [address] [facility] [address] [place] [address] Consulting Physician Cardiology 09/07/17 Tess Brennan MD [address] [address] Referring Physician Gastroenterology 09/25/17 Tee Moura MD [address] [address] Referring Physician Surgery 11/29/17 Michel Linda MD [address] [address] Referring Physician General Surgery 03/11/19 Verena Crespo MD [address] [address] Consulting Physician Nephrology 03/13/19 documented as of this encounter
--- OUTSIDE RECORDS SUMMARY | 2024-10-28 15:14 | XMS_ITS | Encounter Summary ---
Author Organization [facility] Address [address] [place] [address] Phone Care Team Providers Care Dermatology Teacher Name Role Phone Julian Encarnacion MD Primary Care Provider [phone] Travis Torrez MD Primary Care Provider [phone] Carolee Tay APRN, ASTRONOMY INSTRUCTOR Unavailable Reason for Visit * Reason Comments Medication Refill Encounter Details Date Type Department Care Team (Late st Contact Info) Description 01/12/2021 Refill [facility] #2 [place] [address] Julian Encarnacion MD #[address] [address] Medication Refill Social History Tobacco Use Types [...] complication, with long-term current use of insulin ([facility]) [facility] Julian Hines MD 5 months ago Type 2 diabetes mellitus without complication, with long-term current use of insulin ([facility]) [facility] Julian Hines MD 7 months ago Hematemesis, presence of nausea not specified [facility] Medical [facility] Julian Hines MD 8 months ago Hematemesis, presence of nausea not specified [facility] Julian Hines MD 9 months ago Preop cardiovascular exam [facility] Julian Graham MD Upcoming Appointments Future Appointments In 5 days Julian Encarnacion MD [facility], [facility] In 1 month Cristina Garcia APN, KIM [facility], [facility] HEEL COVERER - Recent and Past Visits Recent Visits Date Type Provider Dept 10/18/20 Office Visit Julian Encarnacion MD [facility] [place] 07/20/20 Office Visit Julian Encarnacion MD [facility] [place] 06/08/20 [facility]/10[facility]20 Office Visit Julian Encarnacion MD [facility] 03/23/20 Office Visit Julian Encarnacion MD [facility] 02/18/20 Office Visit Aletha Anand PAC [facility] Showing recent visits within past 460 days with a meds authorizing provider and meeting all other requirements Future Appointments Date Type Provider Dept 01/17/21 Appointment Julian Encarnacion MD [facility] Showing future appointments within next 90 days with a meds authorizing provider and meeting all other requirements documented in this encounter Plan of Treatment Upcoming Encounters Date Type Department Care Team (Late st Contact Info) Description 08/15/2025 10:00 AM SPLITTER HAND Office Visit [facility] Medical [facility] - Cardiology - [place] [address]2 [place] [address] Carolee Tay APRN, KIM [address]2 [place] [address] documented as of this encounter Visit Diagnoses Not on filedocumented in this encounter Additional Health Concerns Infection Onset Date Last Indicated Resolved Time COVID - 19 07/20/2024 07/20/2024 07/20/2024 3:10 AM SPLITTER HAND Assessment Noted Time PHQ-9 Depression Total Score: 0 04/24/20 10:39 AM CDT documented as of this encounter Care Teams Dermatology Teacher Relationship Specialty Start Date End Date Julian Encarnacion MD [address] [address] PCP - General Family Medicine 03/28/20 04/23/22 Travis Torrez MD [address] [place] [address] PCP - General Family Medicine 05/21/22 Carolee Tay APRN, KIM [address] [place] [address] Nurse Practitioner Certified Nurse Practitioner 08/20/24 documented as of this encounter
--- OUTSIDE RECORDS SUMMARY | 2024-10-28 15:14 | XMS_ITS | Encounter Summary ---
Author Organization [facility] Address [address] [place] [address] Phone Care Team Providers Care Feature Writer Name Role Phone Julian Encarnacion MD Primary Care Provider [phone] Travis Torrez MD Primary Care Provider Carolee Tay APRN, BUILDINGS AND GROUNDS COORDINATOR Unavailable Reason for Visit * Reason Comments Medication Refill Encounter Details Date Type Department Care Team (Late st Contact Info) Description 07/20/2021 Refill [facility] #2 [place] [address] Julian Encarnacion MD #[address] [address] Medication Refill Social History Tobacco Use Types [...] (GLUCOPHAGE-XR) 500 MG TABLET SR 24 HR [[id number]] 1031 Status: Active Ordering user: Julian Encarnacion MD 11/15/20 103 Authorized by: Julian Encarnacion MD Frequency: ??11/15/20 - Until Discontinued Released by: Julian Encarnacion MD 11/15/20 103 [id number] [employer] documented in this encounter Plan of Treatment Upcoming Encounters Date Type Department Care Team (Late st Contact Info) Description 08/15/2025 10:00 AM SUPERVISING AIRPLANE PILOT Office Visit [facility] - Cardiology - [place] #2 [place] [address] Carolee Tay APRN, BUILDINGS AND GROUNDS COORDINATOR #2 [place] [address] documented as of this encounter Visit Diagnoses Not on filedocumented in this encounter Additional Health Concerns Infection Onset Date Last Indicated Resolved Time COVID - 19 07/20/2024 07/20/2024 07/20/2024 3:10 AM SUPERVISING AIRPLANE PILOT Assessment Noted Time PHQ-9 Depression Total Score: 0 04/24/20 10:39 AM CDT documented as of this encounter Care Teams Feature Writer Relationship Specialty Start Date End Date Julian Encarnacion MD #[address] [address] PCP - General Family Medicine 03/28/20 04/23/22 Travis Torrez MD [address] [place] [address] PCP - General Family Medicine 05/21/22 Carolee Tay APRN, BUILDINGS AND GROUNDS COORDINATOR #2 [place] [address] Nurse Practitioner Certified Nurse Practitioner 08/20/24 documented as of this encounter
--- OUTSIDE RECORDS SUMMARY | 2024-10-28 15:14 | XMS_ITS | Encounter Summary ---
Author Organization [facility] Address [address] [place] [address] Phone Care Team Providers Care Propulsion Systems Engineer Name Role Phone Valerie Grimaldo MD Primary Care Provider + [phone] Cody Polk MD Unavailable Wen Nelson MD Unavailable José Miguel Alva MD Unavailable Drew Martínez MD Unavailable [phone] Lopez Nunez DO Unavailable [phone] Autumn Chapman OD Unavailable [phone] Alcon Camacho MD Unavailable [phone] Tess Brennan MD Unavailable [phone] Tee Moura MD Unavailable [phone] Michel Linda MD Unavailable Verena Crespo MD Unavailable [phone] Unknown, Notinfile Primary Care Provider Unavail able Julian Encarnacion MD Primary Care Provider Encounter Details Date Type Department Care Team (Late st Contact Info) Description 09/05/2017 Orders Only [facility] [address] [place] [address] Valerie Grimaldo MD [address] [place] [address] Social History Tobacco Use Types Packs/Day Years Used Date Smoking Tobacco: Never Smokeless Tobacco: Never Alcohol Use Standard Drinks/Week Comments No 0 (1 standard drink = 0.6 oz pur e alcohol) Comments No Sex and Gender Information Value Date Recorded Sex Assigned at Not on file Legal Sex Female 11:50 PM NANOTECHNICIAN Gender Identity Not on file Sexual Orientation Not on file documented as of this encounter Plan of Treatment Not on file documented as of this encounter Procedures Procedure Name Priority Date/Time Associated Diagnosis Comments SCAN - RADIOLOGY/IMAGING 09/05/2017 10:47 AM NANOTECHNICIAN documented in this encounter Results * SCAN - RADIOLOGY/IMAGING (09/05/2017 10:47 AM NANOTECHNICIAN) Anatomical Region Laterality Modality Other Valerie Grimaldo MD Final Resu lt documented in this encounter Visit Diagnoses Not on filedocumented in this encounter Care Teams Propulsion Systems Engineer Relationship Specialty Start Date End Date Valerie Grimaldo MD PCP - General 09/27/16 03/16/20 Unknown, Notinfile PCP - General 03/17/20 11/21/20 Julian Encarnacion MD 2 [facility] [address] [place] [address] PCP - General Family Medicine 11/22/20 [place] [address] [facility] [address] [place] [address] Pulmonary Disease 02/27/17 Wen Nelson MD [address] [place] [address] Obstetrics and Gynecology 02/27/17 José Miguel Alva MD [address] [facility] [address] [place], [place] [id number] Gynecologic Oncology 02/27/17 Drew Martínez MD [address] [place] [address] Orthopedic Surgery 02/27/17 Lopez Nunez DO [address] [place] [address] Consulting Physician Gastroenterology 04/25/17 Autumn Chapman OD [address] [place] [address] Optometry 04/28/17 [place] [address] [address] [facility] [address] [place] [address] Consulting Physician Cardiology 09/07/17 Tess Brennan MD [address] [address] Referring Physician Gastroenterology 09/25/17 Tee Moura MD [address] [facility] [address] [address] Referring Physician Surgery 11/29/17 Michel iLnda MD [address] [facility] [address] [address] Referring Physician General Surgery 03/11/19 Verena Crespo MD [address] [facility] [address] [address] Consulting Physician Nephrology 03/13/19 documented as of this encounter
--- OUTSIDE RECORDS SUMMARY | 2024-10-28 15:14 | XMS_ITS | Encounter Summary ---
Author Organization [facility] Address [address] [place] [address] Phone Care Team Providers Care Structural Fitter Name Role Phone Valerie Grimaldo MD Primary Care Provider + [phone] Cody Polk MD Unavailable [phone] Wen Nelson MD Unavailable José Miguel Alva MD Unavailable [phone] Drew Martínez MD Unavailable [phone] Lopez Nunez DO Unavailable [phone] Autumn Chapman OD Unavailable [phone] Alcon Camacho MD Unavailable [phone] Tess Brennan MD Unavailable [phone] Tee Moura MD Unavailable [phone] Michel Linda MD Unavailable Verena Crespo MD Unavailable [phone] Unknown, Notinfile Primary Care Provider Unavail able Julian Encarnacion MD Primary Care Provider Encounter Details Date Type Department Care Team (Late st Contact Info) Description 09/15/2017 Orders Only [facility] Provider, MD [place] [address] [place] [address] Social History Tobacco Use Types Packs/Day Years Used Date Smoking Tobacco: Never Smokeless Tobacco: Never Alcohol Use Standard Drinks/Week Comments No 0 (1 standard drink = 0.6 oz pur e alcohol) Comments No Sex and Gender Information Value Date Recorded Sex Assigned at Not on file Legal Sex Female 11:50 PM RETAIL BUSINESS DEVELOPMENT MANAGER Gender Identity Not on file Sexual [...] on filedocumented in this encounter Care Teams Structural Fitter Relationship Specialty Start Date End Date Valerie Grimaldo MD PCP - General 09/27/16 03/16/20 Unknown, Notinfile PCP - General 03/17/20 11/21/20 Julian Encarnacion MD [address] [address] PCP - General Family Medicine 11/22/20 [place] [address] [facility] [address] [place] [address] Pulmonary Disease 02/27/17 Wen Nelson MD [address] [address] Obstetrics and Gynecology 02/27/17 José Miguel Alva MD [address] [address] [place] [address] Gynecologic Oncology 02/27/17 Drew Martínez MD [address] [place] [address] Orthopedic Surgery 02/27/17 Lopez Nunez DO [address] [place] [address] Consulting Physician Gastroenterology 04/25/17 Autumn Chapman OD 406 [place] [address] Optometry 04/28/17 [place] [address] [facility] [address] [place] [address] Consulting Physician Cardiology 09/07/17 Tess Brennan MD 2 [facility] [address] [place] [address] Referring Physician Gastroenterology 09/25/17 Tee Moura MD [address] [facility] [address] [address] Referring Physician Surgery 11/29/17 Michel Linda MD [address] [address] Referring Physician General Surgery 03/11/19 Verena Crespo MD 2 [facility] [address] [address] Consulting Physician Nephrology 03/13/19 documented as of this encounter
--- OUTSIDE RECORDS SUMMARY | 2024-10-28 15:14 | XMS_ITS | Encounter Summary ---
Author Organization [facility] Address [address] [place] [address] Phone Care Team Providers Care Mica Paster Name Role Phone Julian Encarnacion MD Primary Care Provider [phone] Travis Torrez MD Primary Care Provider [phone] Carolee Tay APRN, VENEER PATCHER Unavailable Reason for Visit * Reason Comments Medication Refill Encounter Details Date Type Department Care Team (Late st Contact Info) Description 08/06/2021 Refill [facility] - Family [facility] #2 [place] [address] Julian Encarnacion MD #[address] [address] Medication Refill Social History Tobacco Use Types [...] Autumn Patino RN - 08/07/2021 2:23 PM SHOWCASE TRIMMER Patient is not wanting an appointment, just wanted enough medication until she could see her new Dr. CASE TRIMMER * Telephone Encounter - Kenyetta Moran RMA - 08/07/2021 2:13 PM SHOWCASE TRIMMER Left voicemail CASE TRIMMER * Telephone Encounter - Dominique Conway RN - 08/07/2021 10:38 AM CST Provider requests patient appointment CASE TRIMMER * Telephone Encounter - Dominique Conway RN [...] Dept 02/21/21 Office Visit Julian Encarnacion MD [facility] Showing recent visits within past 182 days and meeting all other requirements Future Appointments No visits were found meeting these conditions. Showing future appointments within next 90 days and meeting all other requirements CASE TRIMMER documented in this encounter Plan of Treatment Upcoming Encounters Date Type Department Care Team (Late st Contact Info) Description 08/15/2025 10:00 AM SHOWCASE TRIMMER Office Visit [facility] - Cardiology - [place] [address] [place] [address] Carolee Tay APRN, KIM [address] [place] [address] documented as of this encounter Visit Diagnoses Not on filedocumented in this encounter Additional Health Concerns Infection Onset Date Last Indicated Resolved Time COVID - 19 07/20/2024 07/20/2024 07/20/2024 3:10 AM SHOWCASE TRIMMER Assessment Noted Time PHQ-9 Depression Total Score: 0 04/24/20 10:39 AM CDT documented as of this encounter Care Teams Mica Paster Relationship Specialty Start Date End Date Julian Encarnacion MD #[address] [address] PCP - General Family Medicine 03/28/20 04/23/22 Travis Torrez MD [address] [place] [address] PCP - General Family Medicine 05/21/22 Carolee Tay APRN, KIM [address] [place] [address] Nurse Practitioner Certified Nurse Practitioner 08/20/24 documented as of this encounter
--- OUTSIDE RECORDS SUMMARY | 2024-10-28 15:14 | XMS_ITS | Encounter Summary ---
Author Organization [facility] Address [address] [place] [address] Phone Care Team Providers Care Glass Crusher Name Role Phone Julian Encarnacion MD Primary Care Provider [phone] Travis Torrez MD Primary Care Provider [phone] Carolee Tay APRN, ELECTRICAL LOGGER Unavailable Reason for Visit * Reason Comments Medication Refill Encounter Details Date Type Department Care Team (Late st Contact Info) Description 12/08/2020 Refill [facility] - [facility] #2 [place] [address] Julian Encarnacion MD #[address] [address] Medication Refill Social History Tobacco Use Types [...] st Contact Info) Description 08/15/2025 10:00 AM ORTHOPEDIC DESIGNER Office Visit [facility] - Cardiology [facility] #2 [place] [address] Carolee Tay APRN, ELECTRICAL LOGGER [address] [place] [address] documented as of this encounter Visit Diagnoses Not on filedocumented in this encounter Additional Health Concerns Infection Onset Date Last Indicated Resolved Time COVID - 19 07/20/2024 07/20/2024 07/20/2024 3:10 AM ORTHOPEDIC DESIGNER Assessment Noted Time PHQ-9 Depression Total Score: 0 04/24/20 10:39 AM CDT documented as of this encounter Care Teams Glass Crusher Relationship Specialty Start Date End Date Julian Encarnacion MD [address] [address] PCP - General Family Medicine 03/28/20 04/23/22 Travis Torrez MD [address] [place] [address] PCP - General Family Medicine 05/21/22 Carolee Tay APRN, KIM [address] [place] [address] Nurse Practitioner Certified Nurse Practitioner 08/20/24 documented as of this encounter
--- OUTSIDE RECORDS SUMMARY | 2024-10-28 15:14 | XMS_ITS | Encounter Summary ---
Author Organization [facility] Address [address] [place] [address] Phone Care Team Providers Care Job Estimator Name Role Phone Julian Encarnacion MD Primary Care Provider Travis Torrez MD Primary Care Provider Carolee Tay APRN, BREWERY PUMPER Unavailable Reason for Visit * Reason Comments Medication Refill Encounter Details Date Type Department Care Team (Late st Contact Info) Description 04/05/2021 Refill [facility] - Family Medicine [facility] #2 [place] [address] Julian Encarnacion MD #[address] [address] Medication Refill Social History Tobacco Use Types [...] RN - 04/05/2021 1:35 PM CDT Per [place] PDMP last fill date 02/19/21. Medication failed [...] Visits 1 month ago Arthralgia, unspecified joint [facility] Julian Hines MD 5 months ago Type 2 diabetes mellitus without complication, with long-term current use of insulin ([facility]) [facility] Julian Graham MD 8 months ago Type 2 diabetes mellitus without complication, with long-term current use of insulin ([facility]) [facility] Julian Graham MD 10 months ago Hematemesis, presence of nausea not specified [facility] Julian Graham MD 11 months ago Hematemesis, presence of nausea not specified [facility] Julian Graham MD Upcoming Appointments PARTS CONTROL CLERK - Recent and Past Visits Recent Visits [...] [place] 02/18/20 Office Visit Aletha Anand, PAC [facility] Showing recent visits within past 460 [...] st Contact Info) Description 08/15/2025 10:00 AM EDITOR PRODUCER Office Visit [facility] - Cardiology [facility] #2 [place] [address] Carolee Tay APRN, BREWERY PUMPER [address]2 [place] [address] documented as of this encounter Visit Diagnoses Diagnosis Arthralgia, unspecified joint documented in this encounter Additional Health Concerns Infection Onset Date Last Indicated Resolved Time COVID - 19 07/20/2024 07/20/2024 07/20/2024 3:10 AM EDITOR PRODUCER Assessment Noted Time PHQ-9 Depression Total Score: 0 04/24/20 10:39 AM CDT documented as of this encounter Care Teams Job Estimator Relationship Specialty Start Date End Date Julian Encarnacion MD #[address] [address] PCP - General Family Medicine 03/28/20 04/23/22 Travis Torrez MD [address] [place] [address] PCP - General Family Medicine 05/21/22 Carolee Tay APRN, KIM #2 [place] [address] Nurse Practitioner Certified Nurse Practitioner 08/20/24 documented as of this encounter
--- OUTSIDE RECORDS SUMMARY | 2024-10-28 15:14 | XMS_ITS | Encounter Summary ---
Author Organization [facility] Address [address] [place] [address] Phone Care Team Providers Care Director Of Knowledge Management Name Role Phone Julian Encarnacion MD Primary Care Provider Travis Torrez MD Primary Care Provider [phone] Carolee Tay APRN, PERSONAL FINANCE INSTRUCTOR Unavailable Reason for Visit * Reason Comments Medication Refill Encounter Details Date Type Department Care Team (Late st Contact Info) Description 11/14/2020 Refill [facility] - Family [facility] #2 [place] [address] Julian Encarnacion MD #[address] [address] Medication Refill Social History Tobacco Use Types [...] Dept 10/18/20 Office Visit Julian Encarnacion MD [facility] 07/20/20 Office Visit Julian Encarnacion MD [facility] [place] 06/08/20 Office Visit Julian Encarnacion MD [facility] [place] Showing recent visits within past 182 days and meeting all other requirements Future Appointments Date Type Provider Dept 01/17/21 Appointment Julian Encarnacion MD [facility] [place] Showing future appointments within next 90 days and meeting all other requirements Passed - HgA1C on record in past 6 months HGB-A1C Date Value Ref Range Status 10/18/2020 7.0 % Final documented in this encounter Plan of Treatment Upcoming Encounters Date Type Department Care Team (Late st Contact Info) Description 08/15/2025 10:00 AM CROP NUTRITION SCIENTIST Office Visit [facility] - Cardiology - [place] #2 [place] [address] Carolee Tay APRN, PERSONAL FINANCE INSTRUCTOR #2 [place] [address] documented as of this encounter Visit Diagnoses Not on filedocumented in this encounter Additional Health Concerns Infection Onset Date Last Indicated Resolved Time COVID - 19 07/20/2024 07/20/2024 07/20/2024 3:10 AM CROP NUTRITION SCIENTIST Assessment Noted Time PHQ-9 Depression Total Score: 0 04/24/20 20 10:39 AM CDT documented as of this encounter Care Teams Director Of Knowledge Management Relationship Specialty Start Date End Date Julian Encarnacion MD #[address] [address] PCP - General Family Medicine 03/28/20 04/23/22 Travis Torrez MD [address] [place] [address] PCP - General Family Medicine 05/21/22 Carolee Tay APRN, PERSONAL FINANCE INSTRUCTOR #2 [place] [address] Nurse Practitioner Certified Nurse Practitioner 08/20/24 documented as of this encounter
--- OUTSIDE RECORDS SUMMARY | 2024-10-28 15:14 | XMS_ITS | Encounter Summary ---
Author Organization [facility] Address [address] [place] [address] Phone Care Team Providers Care Preparation Plant Supervisor Name Role Phone Julian Encarnacion MD Primary Care Provider [phone] Travis oTrrez MD Primary Care Provider [phone] Carolee Tay APRN, RESIDENTIAL PROPERTY MANAGER Unavailable Reason for Visit * Reason Comments Medication Refill Encounter Details Date Type Department Care Team (Late st Contact Info) Description 06/20/2021 [facility]ill [facility] #2 [place] [address] Julian Encarnacion MD #[address] [address] Medication Refill Social History Tobacco Use Types [...] Kenyetta Moran RMA - 06/27/2021 10:55 AM FAN ENGINE ENGINEER Left voicemail ENGINE ENGINEER * Telephone Encounter - Dominique Conway RN - 06/26/2021 10:52 AM CST Patient needs appointment ENGINE ENGINEER * Telephone Encounter - Carola Patiño MA - 06/25/2021 3:43 PM FAN ENGINE ENGINEER Message left on Medication refill voice mail: Patient would like to know why the doctor has refusedher pain medication (Ty#3) ? See previous message from 06/21/21 . Please call patient @[phone] ENGINE ENGINEER * Telephone Encounter - Kenyetta Moran RMA - 06/21/2021 11:19 AM FAN ENGINE ENGINEER Left voicemiail ENGINE ENGINEER * Telephone Encounter - Dominique Conway RN - 06/20/2021 3:56 PM CST PCP requests patient appointment ENGINE ENGINEER * Telephone Encounter - Dominique Conway RN [...] Dept 02/21/21 Office Visit Julian Encarnacion MD [facility] [place] 10/18/20 [facility]/20[facility]20 Office Visit Julian Encarnacion MD [facility] [place] Showing recent visits within past 365 days and meeting all other requirements Future Appointments No visits were found meeting these conditions. Showing future appointments within next 90 days and meeting all other requirements ENGINE ENGINEER documented in this encounter Plan of Treatment Upcoming Encounters Date Type Department Care Team (Late st Contact Info) Description 08/15/2025 10:00 AM FAN ENGINE ENGINEER Office Visit [facility] - Cardiology - [place] #2 [place] [address] Carolee Tay APRN, RESIDENTIAL PROPERTY MANAGER #2 [place] [address] documented as of this encounter Visit Diagnoses Diagnosis Arthralgia, unspecified joint documented in this encounter Additional Health Concerns Infection Onset Date Last Indicated Resolved Time COVID - 19 07/20/2024 07/20/2024 07/20/2024 3:10 AM FAN ENGINE ENGINEER Assessment Noted Time PHQ-9 Depression Total Score: 0 04/24/20 20 10:39 AM CDT documented as of this encounter Care Teams Preparation Plant Supervisor Relationship Specialty Start Date End Date Julian Encarnacion MD #[address] [address] PCP - General Family Medicine 03/28/20 04/23/22 Travis Torrez MD [address] [place] [address] PCP - General Family Medicine 05/21/22 Carolee Tay APRN, RESIDENTIAL PROPERTY MANAGER #2 [place] [address] Nurse Practitioner Certified Nurse Practitioner 08/20/24 documented as of this encounter
--- OUTSIDE RECORDS SUMMARY | 2024-10-28 15:14 | XMS_ITS | Encounter Summary ---
Author Organization [facility] Address [address] [place] [address] Phone Care Team Providers Care Black Belt Name Role Phone Valerie Grimaldo MD Primary Care Provider + [phone] Cody Polk MD Unavailable [phone] Wen Nelson MD Unavailable José Miguel Alva MD Unavailable [phone] Drew Martínez MD Unavailable +[phone] Lopez Nunez DO Unavailable [phone] Autumn Chapman OD Unavailable +[phone] Alcon Camacho MD Unavailable +[phone] Tess Brennan MD Unavailable +[phone] Tee Moura MD Unavailable [phone] Michel Linda MD Unavailable Verena Crespo MD Unavailable [phone] Unknown, Notinfile Primary Care Provider Unavail able Julian Encarnacion MD Primary Care Provider [phone] Encounter Details Date Type Department Care Team (Late st Contact Info) Description 09/08/2017 Orders Only [facility] Provider, MD Tayler [address] [place] [address] Social History Tobacco Use Types Packs/Day Years Used Date Smoking Tobacco: Never Smokeless Tobacco: Never Alcohol Use Standard Drinks/Week Comments No 0 (1 standard drink = 0.6 oz pur e alcohol) Comments No Sex and Gender Information Value Date Recorded Sex Assigned at Not on file Legal Sex Female 11:50 PM MID LEVEL BUSINESS ANALYST Gender Identity Not on file Sexual Orientation [...] on filedocumented in this encounter Care Teams Black Belt Relationship Specialty Start Date End Date Valerie Grimaldo MD PCP - General 09/27/16 03/16/20 Unknown, Notinfile PCP - General 03/17/20 11/21/20 Julian Encarnacoin MD [address] [address] PCP - General Family Medicine 11/22/20 [place] [address] [facility] H23[address] [place] [address] Pulmonary Disease 02/27/17 Wen Nelson MD [address] [place] [address] Obstetrics and Gynecology 02/27/17 José Miguel Alva MD [address] [facility] [address] [place] [address] Gynecologic Oncology 02/27/17 Drew Martínez MD [address] [place] [address] Orthopedic Surgery 02/27/17 Lopez Nunez DO [address] [place] [address] Consulting Physician Gastroenterology 04/25/17 Autumn Chapman OD [address] [place] [address] Optometry 04/28/17 [place] [address] [facility] [address] [place] [address] Consulting Physician Cardiology 09/07/17 Tess Brennan MD [address] [facility] [address] [address] Referring Physician Gastroenterology 09/25/17 Tee Moura MD [address] [address] Referring Physician Surgery 11/29/17 Michel Linda MD 2 [facility] [address] [address] Referring Physician General Surgery 03/11/19 Verena Crespo MD [address] [address] [address] Consulting Physician Nephrology 03/13/19 documented as of this encounter
--- OUTSIDE RECORDS SUMMARY | 2024-10-28 15:14 | XMS_ITS | Encounter Summary ---
Author Organization [facility] Address [address] [place] [address] Phone Care Team Providers Care Business Development Associate Name Role Phone Travis Torrez MD Primary Care Provider [phone] Carolee Tay APRN, DIVE SUPERINTENDENT Unavailable Reason for Visit * Reason Comments Medication Refill Encounter Details Date Type Department Care Team (Late Contact Info) Description 03/06/2023 Refill [facility] - [facility] Medicine [facility] #2 [place] [address] Julian Encarnacion MD #[address] [address] Medication Refill Social History Tobacco Use Types [...] st Contact Info) Description 08/15/2025 10:00 AM WINDOWS LAPTOP TECHNICIAN Office Visit [facility] - Cardiology [facility] #2 [place] [address] Carolee Tay APRN, DIVE SUPERINTENDENT [address]2 [place] [address] documented as of this encounter Visit Diagnoses Not on filedocumented in this encounter Additional Health Concerns Infection Onset Date Last Indicated Resolved Time COVID - 19 07/20/2024 07/20/2024 07/20/2024 3:10 AM WINDOWS LAPTOP TECHNICIAN Assessment Noted Time PHQ-9 Depression Total Score: 0 04/24/20 10:39 AM CDT documented as of this encounter Care Teams Business Development Associate Relationship Specialty Start Date End Date Travis Torrez MD [address] [place] [address] PCP - General Family Medicine 05/21/22 Carolee Tay APRN, DIVE SUPERINTENDENT [address] [place] [address] Nurse Practitioner Certified Nurse Practitioner 08/20/24 documented as of this encounter
--- OUTSIDE RECORDS SUMMARY | 2024-10-28 15:14 | XMS_ITS | Encounter Summary ---
Author Organization [facility] Address [address] [place] [address] Phone Care Team Providers Care Automotive Technology Instructor Name Role Phone Valerie Grimaldo MD Primary Care Provider + [phone] Cody Polk MD Unavailable +[phone] Wen Nelson MD Unavailable José Miguel Alva MD Unavailable +[phone] Drew Martínez MD Unavailable +[phone] Lopez Nunez DO Unavailable [phone] Autumn Chapman OD Unavailable +[phone] Alcon Camacho MD Unavailable [phone] Tess Brennan MD Unavailable [phone] Tee Moura MD Unavailable [phone] Michel Linda MD Unavailable Verena Crespo MD Unavailable [phone] Unknown, Notinfile Primary Care Provider Unavail able Julian Encarnacion MD Primary Care Provider Encounter Details Date Type Department Care Team (Late st Contact Info) Description 10/01/2017 Orders Only [facility] Provider, MD Tayler [address] [place] [address] Social History Tobacco Use Types Packs/Day Years Used Date Smoking Tobacco: Never Smokeless Tobacco: Never Alcohol Use Standard Drinks/Week Comments No 0 (1 standard drink = 0.6 oz pur e alcohol) Comments No Sex and Gender Information Value Date Recorded Sex Assigned at Not on file Legal Sex Female 11:50 PM BEHAVIORAL PEDIATRICIAN Gender Identity Not on file Sexual Orientation [...] on filedocumented in this encounter Care Teams Automotive Technology Instructor Relationship Specialty Start Date End Date Valerie Grimaldo MD PCP - General 09/27/16 03/16/20 Unknown, Notinfile PCP - General 03/17/20 11/21/20 Julian Encarnacion MD [address] [address] [place] [address] PCP - General Family Medicine 11/22/20 [place] [address] [facility] [address] [place] [address] Pulmonary Disease 02/27/17 Wen Nelson MD [address] [address] Obstetrics and Gynecology 02/27/17 José Miguel Alva MD [address] [facility] [address] [place], [place] [address] Gynecologic Oncology 02/27/17 Drew Martínez MD [address] [place] [address] Orthopedic Surgery 02/27/17 Lopez Nunez DO [address] [place] [address] Consulting Physician Gastroenterology 04/25/17 Autumn Chapman OD [address] [place] [address] Optometry 04/28/17 [place] [address] [address] [facility] [address] [place] [address] Consulting Physician Cardiology 09/07/17 Tess Brennan MD [address] [place] [address] [address] Referring Physician Gastroenterology 09/25/17 Tee Moura MD [address] [place] [address] [address] Referring Physician Surgery 11/29/17 Michel Linda MD [address] [place] [place] [address] [address] Referring Physician General Surgery 03/11/19 Verena Crespo MD [address] [address] Consulting Physician Nephrology 03/13/19 documented as of this encounter
--- OUTSIDE RECORDS SUMMARY | 2024-10-28 15:14 | XMS_ITS | Encounter Summary ---
Author Organization [facility] Address [address] [place] [address] Phone Care Team Providers Care Proposal Coordinator Name Role Phone Julian Encarnacion MD Primary Care Provider Travis Torrez MD Primary Care Provider [phone] Carolee Tya APRN, STATION MECHANIC HELPER Unavailable Reason for Visit * Reason Comments Medication Refill Encounter Details Date Type Department Care Team (Late st Contact Info) Description 12/04/2020 Refill [facility] - Family Medicine [facility] #2 [place] [address] Julian Encarnacion MD #[address] [address] Medication Refill Social History Tobacco Use Types [...] long-term current use of insulin ([facility]) [facility] Julian Hines MD 4 months ago Type 2 diabetes mellitus without complication, with long-term current use of insulin ([facility]) [facility] Julian Graham MD 6 months ago Hematemesis, presence of nausea not specified [facility] Julian Graham MD 6 months ago Hematemesis, presence of nausea not specified [facility] Julian Graham MD 8 months ago Preop cardiovascular exam [facility] Julian Graham MD Upcoming Appointments Future Appointments In 1 month Julian Encarnacion MD [facility] In 2 months Cristina Garcia APN, STATION MECHANIC HELPER [facility] Oncology Services, [facility] MILLED LUMBER GRADER - Recent and Past Visits Recent Visits Date Type Provider Dept 10/18/20 Office Visit Julian Encarnacion MD [facility] 07/20/20 Office Visit Julian Encarnacion MD [facility] [place] 06/08/20 Office Visit Julian Encarnacion MD [facility] [place] 05/10/20 Office Visit Julian Encarnacion MD [facility] 03/23/20 Office Visit Julian Encarnacion MD [facility] [place] 02/18/20 Office Visit Aletha Anand PAC [facility] Showing recent visits within past 460 days with a meds authorizing provider and meeting all other requirements Future Appointments Date Type Provider Dept 01/17/21 Appointment Julian Encarnacion MD [facility] [place] Showing future appointments within next 90 days with a meds authorizing provider and meeting all other requirements documented in this encounter Plan of Treatment Upcoming Encounters Date Type Department Care Team (Late st Contact Info) Description 08/15/2025 10:00 AM CAR WHACKER Office Visit [facility]iology - [place] #2 [place] [address] Carolee Tay APRN, STATION MECHANIC HELPER #2 [place] [address] documented as of this encounter Visit Diagnoses Not on filedocumented in this encounter Additional Health Concerns Infection Onset Date Last Indicated Resolved Time COVID - 19 07/20/2024 07/20/2024 07/20/2024 3:10 AM CAR WHACKER Assessment Noted Time PHQ-9 Depression Total Score: 0 04/24/20 20 10:39 AM CDT documented as of this encounter Care Teams Proposal Coordinator Relationship Specialty Start Date End Date Julian Encarnacion MD #[address] [address] PCP - General Family Medicine 03/28/20 04/23/22 Travis Torrez MD [address] [place] [address] PCP - General Family Medicine 05/21/22 Carolee Tay APRN, STATION MECHANIC HELPER #2 [place] [address] Nurse Practitioner Certified Nurse Practitioner 08/20/24 documented as of this encounter
--- OUTSIDE RECORDS SUMMARY | 2024-10-28 15:14 | XMS_ITS | Encounter Summary ---
Author Organization [facility] Address [address] [place] [address] Phone Care Team Providers Care Marketing Project Lead Name Role Phone Valerie Grimaldo MD Primary Care Provider + [phone] Cody Polk MD Unavailable [phone] Wen Nelson MD Unavailable José Miguel Alva MD Unavailable Drew Martínez MD Unavailable [phone] oLpez Nunez DO Unavailable [phone] Autumn Chapman OD Unavailable [phone] Alcon Camacho MD Unavailable [phone] Tess Brennan MD Unavailable [phone] Tee Moura MD Unavailable [phone] Michel Linda MD Unavailable Verena Crespo MD Unavailable [phone] Unknown, Notinfile Primary Care Provider Unavail able Julian Encarnacion MD Primary Care Provider Encounter Details Date Type Department Care Team (Late st Contact Info) Description 01/16/2017 Orders Only [facility] [address] [place] [address] Valerie Grimaldo MD [address] [place] [address] Diabetes mellitus without complication (HCC) (Primary Dx) Social History Tobacco Use Types Packs/Day Years Used Date Smoking Tobacco: Never Alcohol Use Standard Drinks/Week Comments No 0 (1 standard drink = 0.6 oz pur e alcohol) Comments Unknown Sex and Gender Information Value Date Recorded Sex Assigned at Not on file Legal Sex Female 11:50 PM DERMATOLOGY PROCEDURAL PHYSICIAN Gender Identity Not on file Sexual Orientation [...] uncontrolled documented in this encounter Care Teams Marketing Project Lead Relationship Specialty Start Date End Date Valerie Grimaldo MD PCP - General 09/27/16 03/16/20 Unknown, Notinfile PCP - General 03/17/20 11/21/20 Julian Encarnacion MD 2 [facility] [address] [place] [address] PCP - General Family Medicine 11/22/20 [place] [address] [facility] [address] [place] [address] Pulmonary Disease 02/27/17 Wen Nelson MD [address] [place] [address] Obstetrics and Gynecology 02/27/17 José Miguel Alva MD [address] [facility] [address] [place] [address] Gynecologic Oncology 02/27/17 Drew Martínez MD [address] [facility] [address] [place] [address] Orthopedic Surgery 02/27/17 Lopez Nunez DO [address] [place] [address] Consulting Physician Gastroenterology 04/25/17 Autumn Chapman OD [address] [place] [address] Optometry 04/28/17 [place] [address] [facility] [address] [place] [address] Consulting Physician Cardiology 09/07/17 Tess Brennan MD [address] [address] Referring Physician Gastroenterology 09/25/17 Tee Moura MD [address] [address] Referring Physician Surgery 11/29/17 Michel Linda MD [address] [address] Referring Physician General Surgery 03/11/19 Verena Crespo MD 2 [facility] [address] [address] Consulting Physician Nephrology 03/13/19 documented as of this encounter
--- OUTSIDE RECORDS SUMMARY | 2024-10-28 15:14 | XMS_ITS | Encounter Summary ---
Author Organization [facility] Address [address] [place] [address] Phone Care Team Providers Care Medical Corps Officer Name Role Phone Valerie Grimaldo MD Primary Care Provider + [phone] Cody Polk MD Unavailable Wen Nelson MD Unavailable José Miguel Alva MD Unavailable Drew Martínez MD Unavailable [phone] Lopez Nunez DO Unavailable [phone] Autumn Chapman OD Unavailable [phone] Alcon Camacho MD Unavailable [phone] Tess Brennan MD Unavailable [phone] Tee Moura MD Unavailable [phone] Michel Linda MD Unavailable Verena Crespo MD Unavailable [phone] Unknown, Notinfile Primary Care Provider Unavail able Julian Encarnacion MD Primary Care Provider [phone] Encounter Details Date Type Department Care Team (Late st Contact Info) Description 12/20/2016 Orders Only [facility] [address] [place] [address] Lisa Romano LPN Social History Tobacco Use Types Packs/Day Years Used Date Smoking Tobacco: Never Alcohol Use Standard Drinks/Week Comments No 0 (1 standard drink = 0.6 oz pur e alcohol) Comments Unknown Sex and Gender Information Value Date Recorded Sex Assigned at Not on file Legal Sex Female 11:[address]OR Gender Identity Not on file Sexual Orientation Not on file documented as of this encounter Plan of Treatment Not on file documented as of this encounter Visit Diagnoses Not on filedocumented in this encounter Care Teams Medical Corps Officer Relationship Specialty Start Date End Date Valerie Grimaldo MD PCP - General 09/27/16 03/16/20 Unknown, Notinfile PCP - General 03/17/20 11/21/20 Julian Encarnacion MD 2 [facility] [address] [place] [address] PCP - General Family Medicine 11/22/20 [place] [address] [facility] [address] [place] [address] Pulmonary Disease 02/27/17 Wen Nelson MD [address] [place] [address] Obstetrics and Gynecology 02/27/17 José Miguel Alva MD [address] [place] [address] Gynecologic Oncology 02/27/17 Drew Martínez MD [address] [place] [address] [place] [address] Orthopedic Surgery 02/27/17 Lopez Nunez DO [address] [address] Consulting Physician Gastroenterology 04/25/17 Autumn Chapman OD [address] [place] [address] Optometry 04/28/17 [place] [address] [facility] [address] [place] [address] Consulting Physician Cardiology 09/07/17 eTss Brennan MD [address] [facility] [address] [address] Referring Physician Gastroenterology 09/25/17 Tee Moura MD [address] [facility] [address] [address] Referring Physician Surgery 11/29/17 Michel Linda MD 2 [facility] [address] [address] Referring Physician General Surgery 03/11/19 Verena Crespo MD 2 [facility] [address] [address] Consulting Physician Nephrology 03/13/19 documented as of this encounter
--- OUTSIDE RECORDS SUMMARY | 2024-10-28 15:14 | XMS_ITS | Encounter Summary ---
Author Organization [facility] Address [address] [place] [address] Phone Care Team Providers Care Entry Level Manufacturing Engineer Name Role Phone Julian Encarnacion MD Primary Care Provider Travis Torrez MD Primary Care Provider [phone] Carolee Tay APRN, YARDER Unavailable Reason for Visit * Reason Comments Medication Refill Encounter Details Date Type Department Care Team (Late st Contact Info) Description 05/17/2021 Refill [facility] - Family Medicine [facility] #2 [place] [address] Julian Encarnacion MD #[address] [address] Medication Refill Social History Tobacco Use Types [...] 05/17/2021 10:12 AM CST Prescription pending signature ISSIONER CONSERVATION OF RESOURCES * Telephone Encounter - Dominique Conway RN [...] Visits 2 months ago Arthralgia, unspecified joint [facility] Julian Hines MD 7 months ago Type 2 diabetes mellitus without complication, with long-term current use of insulin ([facility]) [facility] Julian Graham MD 10 months ago Type 2 diabetes mellitus without complication, with long-term current use of insulin ([facility]) [facility] Julian Graham MD 11 months ago Hematemesis, presence of nausea not specified [facility] Julian Graham MD 1 year ago Hematemesis, presence of nausea not specified [facility] Julian Graham MD Upcoming Appointments METALWORKER - Recent and Past Visits Recent Visits [...] [place] 02/18/20 Office Visit Aletha Anand PAC [facility] Showing recent visits within past 460 days with a meds authorizing provider and meeting all other requirements Future Appointments No visits were found meeting these conditions. Showing future appointments within next 90 days with a meds authorizing provider and meeting all other requirements ISSIONER CONSERVATION OF RESOURCES documented in this encounter Plan of Treatment Upcoming Encounters Date Type Department Care Team (Late st Contact Info) Description 08/15/2025 10:00 AM COMMISSIONER CONSERVATION OF RESOURCES Office Visit [facility] - Cardiology [facility] #2 [place] [address] Carolee Tay APRN, YARDER #2 [place] [address] documented as of this encounter Visit Diagnoses Diagnosis Arthralgia, unspecified joint documented in this encounter Additional Health Concerns Infection Onset Date Last Indicated Resolved Time COVID - 19 07/20/2024 07/20/2024 07/20/2024 3:10 AM COMMISSIONER CONSERVATION OF RESOURCES Assessment Noted Time PHQ-9 Depression Total Score: 0 04/24/20 20 10:39 AM CDT documented as of this encounter Care Teams Entry Level Manufacturing Engineer Relationship Specialty Start Date End Date Julian Encarnacion MD #[address] [address] PCP - General Family Medicine 03/28/20 04/23/22 Travis Torrez MD [address] [place] [address] PCP - General Family Medicine 05/21/22 Carolee Tay APRN, YARDER #2 [place] [address] Nurse Practitioner Certified Nurse Practitioner 08/20/24 documented as of this encounter
--- OUTSIDE RECORDS SUMMARY | 2024-10-28 15:14 | XMS_ITS | Encounter Summary ---
Author Organization [facility] Address [address] [place] [address] Phone Care Team Providers Care Material Damage Adjuster Name Role Phone Valerie Grimaldo MD Primary Care Provider + [phone] Cody Polk MD Unavailable [phone] Wen Nelson MD Unavailable José Miguel Alva MD Unavailable +[phone] Drew Martínez MD Unavailable [phone] Lopez Nunez DO Unavailable [phone] Autumn Chapman OD Unavailable [phone] Alcon Camacho MD Unavailable [phone] Tess Brennan MD Unavailable [phone] Tee Moura MD Unavailable [phone] Michel Linda MD Unavailable Verena Crespo MD Unavailable +[phone] Unknown, Notinfile Primary Care Provider Unavail able Julian Encarnacion MD Primary Care Provider [phone] Encounter Details Date Type Department Care Team (Late st Contact Info) Description 08/22/2017 Orders Only [facility] Provider, MD Tayler [address] [place] [address] Social History Tobacco Use Types Packs/Day Years Used Date Smoking Tobacco: Never Smokeless Tobacco: Never Alcohol Use Standard Drinks/Week Comments No 0 (1 standard drink = 0.6 oz pur e alcohol) Comments Unknown Sex and Gender Information Value Date Recorded Sex Assigned at Not on file Legal Sex Female 11:[address] SHAFT AND STEERING POST REPAIRER Gender Identity Not on file Sexual Orientation Not on file documented as of this encounter Plan of Treatment Not on file documented as of this encounter Procedures Procedure Name Priority Date/Time Associated Diagnosis Comments DISCHARGE LABORATORY CUMULATIVE REPORT 08/22/2017 12:[address] SHAFT AND STEERING POST REPAIRER documented in this encounter Results * DISCHARGE LABORATORY CUMULATIVE REPORT (08/22/2017 12:[address] SHAFT AND STEERING POST REPAIRER) Narrative 08/22/2017 12:[address] SHAFT AND STEERING POST REPAIRER Ordered by an unspecified provider. us Historical Provider LAB BLOOD ORDERABLES Soledad l Result documented in this encounter Visit Diagnoses Not on filedocumented in this encounter Care Teams Material Damage Adjuster Relationship Specialty Start Date End Date Valerie Grimaldo MD PCP - General 09/27/16 03/16/20 Unknown, Notinfile PCP - General 03/17/20 11/21/20 Julian Encarnacion MD 2 [facility] [address] [place] [address] PCP - General Family Medicine 11/22/20 [place] [address] [facility] [address] [place] [address] Pulmonary Disease 02/27/17 Wen Nelson MD [address] [place] [address] Obstetrics and Gynecology 02/27/17 José Miguel Alva MD [address] [facility] [address] [place] [address] Gynecologic Oncology 02/27/17 Drew Martínez MD 1 [address] [facility] 120 [place] [address] Orthopedic Surgery 02/27/17 Lopez Nunez DO [address] [facility] [address] [place] [address] Consulting Physician Gastroenterology 04/25/17 Autumn Chapman OD [address] [place] [address] Optometry 04/28/17 [place] [address] [facility] [address] [place] [address] Consulting Physician Cardiology 09/07/17 Tess Brennan MD [address] [facility] [address] [address] Referring Physician Gastroenterology 09/25/17 Tee Moura MD [address] [facility] [address] [address] Referring Physician Surgery 11/29/17 Michel Linda MD [address] [facility] [address] [address] Referring Physician General Surgery 03/11/19 Verena Crespo MD [address] [facility] [address] [address] Consulting Physician Nephrology 03/13/19 documented as of this encounter
== END 2024-10-28 14:30 | disposition home or self-care (01) ==
PROVIDERS: PCP Family Medicine; Visit Provider Family Medicine
DX: Z78.0 Asymptomatic menopausal state (principal)
CPT/HCPCS: 77080

== ENCOUNTER 2025-01-31 08:11 | Outpatient (CLI) | payer MEDICARE, SELFPAY ==
--- OUTSIDE RECORDS SUMMARY | 2025-01-31 08:14 | XMS_ITS | Encounter Summary ---
Author Organization [facility] Address [address] [place] [address] Phone Care Team Providers Care General Machinist Name Role Phone Valerie Grimaldo MD Primary Care Provider + [phone] Cody Polk MD Unavailable [phone] Wen Nelson MD Unavailable José Miguel Alva MD Unavailable [phone] Drew Martínez MD Unavailable [phone] Lopez Nunez DO Unavailable [phone] Autumn Chapman OD Unavailable [phone] Alcon Camacho MD Unavailable [phone] Tess Brennan MD Unavailable [phone] Tee Moura MD Unavailable [phone] Michel Linda MD Unavailable Verena Crespo MD Unavailable [phone] Unknown, Notinfile Primary Care Provider Unavail able Julian Encarnacion MD Primary Care Provider [phone] Encounter Details Date Type Department Care Team (Late st Contact Info) Description 10/10/[address] 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 WEIGHER Gender Identity Not on file Sexual Orientation [...] on filedocumented in this encounter Care Teams General Machinist Relationship Specialty Start Date End Date Valerie Grimaldo MD PCP - General 09/27/16 03/16/20 Unknown, Notinfile PCP - General 03/17/20 11/21/20 Julian Encarnacion MD [address] [address] PCP - General Family Medicine 11/22/20 [place] [address] [facility] [address] [place] [address] Pulmonary Disease 02/27/17 Wen Nelson MD [address] [place] [address] Obstetrics and Gynecology 02/27/17 José Miguel Alva MD [address] [facility] [address] [place] [address] Gynecologic Oncology 02/27/17 Drew Martínez MD [address] [facility] [address] [place] [address] Orthopedic Surgery 02/27/17 Lopez Nunez DO [address] [facility] [address] [place] [address] Consulting Physician Gastroenterology 04/25/17 Autumn Chapman OD [address] [place] [address] Optometry 04/28/17 [place] [address] [facility] [address] [place] [address] Consulting Physician Cardiology 09/07/17 Tess Brennan MD [address] [facility] [address] Referring Physician Gastroenterology 09/25/17 Tee Moura MD [address] [facility] [facility] [address] Referring Physician Surgery 11/29/17 Michel Linda MD [address] [facility] [address] [address] Referring Physician General Surgery 03/11/19 Verena Crespo MD 2 [facility] [address] [place] [address] Consulting Physician Nephrology 03/13/19 documented as of this encounter
--- OUTSIDE RECORDS SUMMARY | 2025-01-31 08:14 | XMS_ITS | Encounter Summary ---
Author Organization [facility] Address [address] [place] [address] Phone Care Team Providers Care Rollout Manager Name Role Phone Valerie Grimaldo MD Primary Care Provider + [phone] Cody Polk MD Unavailable [phone] Wen Nelson MD Unavailable José Miguel Alva MD Unavailable [phone] Drew Martínez MD Unavailable [phone] Lopez Nunez DO Unavailable [phone] Autumn Chapman OD Unavailable [phone] Alcon Camacho MD Unavailable [phone] eTss Brennan MD Unavailable [phone] Tee Moura MD Unavailable [phone] Michel Linda MD Unavailable Verena Crespo MD Unavailable [phone] Unknown, Notinfile Primary Care Provider Unavail able Julian Encarnacion MD Primary Care Provider Encounter Details Date Type Department Care Team (Late st Contact Info) Description 08/22/2017 Orders Only [facility] Provider, MD Tayler [address] [place] [address] Social History Tobacco Use Types Packs/Day Years Used Date Smoking Tobacco: Never Smokeless Tobacco: Never Alcohol Use Standard Drinks/Week Comments No 0 (1 standard drink = 0.6 oz pur e alcohol) Comments Unknown Sex and Gender Information Value Date Recorded Sex Assigned at Not on file Legal Sex Female 11:50 PM GIN OPERATOR Gender Identity Not on file Sexual Orientation Not on file documented as of this encounter Plan of Treatment Not on file documented as of this encounter Procedures Procedure Name Priority Date/Time Associated Diagnosis Comments DISCHARGE LABORATORY CUMULATIVE REPORT 08/22/2017 12:00 AM GIN OPERATOR documented in this encounter Results * DISCHARGE LABORATORY CUMULATIVE REPORT (08/22/2017 12:00 AM GIN OPERATOR) Narrative 08/22/2017 12:00 AM GIN OPERATOR Ordered by an unspecified provider. us Historical Provider LAB BLOOD ORDERABLES Soledad l Result documented in this encounter Visit Diagnoses Not on filedocumented in this encounter Care Teams Rollout Manager Relationship Specialty Start Date End Date Valerie Grimaldo MD PCP - General 09/27/16 03/16/20 Unknown, Notinfile PCP - General 03/17/20 11/21/20 Julian Encarnacion MD 2 [facility] [address] [place] [address] PCP - General Family Medicine 11/22/20 [place] [address] [facility] [address] [place] [address] Pulmonary Disease 02/27/17 Wen Nelson MD [address] [address] Obstetrics and Gynecology 02/27/17 José Miguel Alva MD [address] [facility] [address] [place] [address] Gynecologic Oncology 02/27/17 Drew Martínez MD [address] [facility] [address] [place] [address] Orthopedic Surgery 02/27/17 Lopez Nunez DO [address] [facility] [address] [place] [address] Consulting Physician Gastroenterology 04/25/17 Autumn Chapman OD 406 [place] [address] Optometry 04/28/17 [place] [address] [facility] [address] [place] [address] Consulting Physician Cardiology 09/07/17 Tess Brennan MD [address] [facility] [address] [address] Referring Physician Gastroenterology 09/25/17 Tee Moura MD [address] [facility] [address] [address] Referring Physician Surgery 11/29/17 Michel Linda MD [address] [facility] [address] [address] Referring Physician General Surgery 03/11/19 Verena Crespo MD [address] [facility] [address] [address] Consulting Physician Nephrology 03/13/19 documented as of this encounter
--- OUTSIDE RECORDS SUMMARY | 2025-01-31 08:14 | XMS_ITS | Referral Summary ---
Author Organization [facility] Address [address] [place] [address] Care Team Providers Care Energy Trader Name Role Phone Cody Polk MD Unavailable [phone] Wen Nelson MD Unavailable Joés Miguel Alva MD Unavailable [phone] Drew Martínez MD Unavailable [phone] Lopez Nunez DO Unavailable [phone] Autumn Chapman OD Unavailable [phone] Alcon Camacho MD Unavailable [phone] Tess Brennan MD Unavailable [phone] Tee Moura MD Unavailable [phone] Michel Linda MD Unavailable Verena Crespo MD Unavailable [phone] Julian Encarnacion MD Primary Care Provider [phone] Allergies Active Allergy Reactions Criticality Noted Date [...] complication, without long-term current use of insulin Use with glucose strips - monitor glucose checks 2 times daily. 1 each 8 Active cyanocobalamin (Vitamin B-12) 1,000 mcg tabletIndications: Type 2 diabetes mellitus with other diabetic kidney complication, without long-term current use of insulin Take 1 tablet (1,000 mcg total) by mouth daily 90 tablet 3 9 Active pen needle, diabetic 32 gauge x 11/12 needleIndications: Type 2 diabetes mellitus with other diabetic kidney complication, without long-term current use of insulin 1 Dose daily 100 each 11 9 [...] with long-term current use of insulin (HCC) Take 500 mg by mouth daily with breakfast Active warfarin (COUMADIN) 1 mg tabletIndications: Recurrent pulmonary embolism (HCC) Take 1 -3 tablets by mouth daily [...] long-term current use of insulin ([facility]) Inject 30 Units under the skin 2 [...] gland type mucosa 2. Lymphoid aggregate Stomach, ulcers, endoscopic biopsy ulcer follow-up December 2017: 1. [...] controlled Assessment & Plan (08/10/2019 11:00 AM ELECTRIC POWER SUPERINTENDENT): Patient with improvement in HgbA1C from 10.4 [...] sleep apnea syndrome, 327.23. AXIS B: Polysomnography, [address]. Ischemic heart disease due to coronary artery [...] on file Legal Sex Female 11:50 PM ELECTRIC POWER SUPERINTENDENT Gender Identity Not on file Sexual Orientation Not on file Occupation Industry Job Start Date Job End Date Retired Not on file Not on file Not on file Last Filed Vital Signs Vital Sign Reading Time Taken Comments Blood Pressure 110/60 08/10/2019 9:44 AM ELECTRIC POWER SUPERINTENDENT Pulse 68 08/10/2019 9:44 AM ELECTRIC POWER SUPERINTENDENT Temperature 36.1 C (97 F) 05/25/2019 7:56 AM ELECTRIC POWER SUPERINTENDENT Respiratory Rate 12 08/10/2019 9:44 AM ELECTRIC POWER SUPERINTENDENT Oxygen Saturation 97% 08/10/2019 9:44 AM ELECTRIC POWER SUPERINTENDENT Inhaled Oxygen Concentration - - Weight 113.4 kg (250 lb) 08/10/2019 9:44 AM ELECTRIC POWER SUPERINTENDENT Height 157.5 cm (5' 2) 01/26/2019 9:45 AM CDT Body Mass Index 45.73 01/26/2019 9:45 AM CDT Plan of Treatment Not on file Procedures Procedure Name Priority Date/Time Associated Diagnosis Comments HEMOGLOBIN A1C Routine 11/23/2019 9:21 AM CDT Type 2 diabetes mellitus with stage 4 chronic kidney disease, with long-term current use of insulin (HCC) COMPREHENSIVE METABOLIC PANEL Routine 08/07/2019 9:31 AM ELECTRIC POWER SUPERINTENDENT Type 2 diabetes mellitus with stage 4 chronic kidney disease, with long-term current use of insulin (HCC) Hypertension complicating diabetes (HCC) ALBUMIN CREATININE RATIO, URINE Routine 08/07/2019 9:31 AM ELECTRIC POWER SUPERINTENDENT Type 2 diabetes mellitus with stage 4 chronic kidney disease, with long-term current use of insulin (HCC) Hypertension complicating diabetes (HCC) SCREENING MAMMOGRAM 2D BILATERAL Schedule Routine, Read Routine (OP Routine) 10/27/2017 10:50 AM CDT Encounter for screening mammogram for malignant neoplasm of breast HEPATITIS C ANTIBODY Routine 09/05/2017 1:37 PM ELECTRIC POWER SUPERINTENDENT SERUM LIPID PANEL Routine 07/24/2016 9:0 5 AM ELECTRIC POWER SUPERINTENDENT from Last 3 Months or Most Recently [...] BLOOD ORDERABLES Final Result Performing Organization Address [facility] Co de Phone Number ASIYA Knight [address] [place] [address] * (ABNORMAL) Albumin Creatinine Ratio, Urine (08/07/2019 9:31 AM ELECTRIC POWER SUPERINTENDENT) Creatinine, ur 142 20 - 275 mg/dL [facility] [place] Microalbumin, ur 17.3 See Note: mg/dL [facility] [place] Comment: Reference Range: Reference Range Not established Microalbumin/creat ratio 122(H) <30 mcg/mg creat [facility] [place] Comment: The ADA defines abnormalities in albumin excretion as follows: Category Result (mcg/mg creatinine) Normal <30 Microalbuminuria 30-299 Clinical albuminuria > OR = 300 The ADA recommends that at least two of three specimens collected within a 3-6 month period be abnormal before considering a patient to be within a diagnostic category. Urine 08/07/2019 9:31 AM ELECTRIC POWER SUPERINTENDENT 08/07/2019 9:31 AM ELECTRIC POWER SUPERINTENDENT Narrative Resulting Agency Comment Performing Organization Information: Site ID: [place] Name: Asiya Knight Address: [address] [place] [address] Director: Cody Castro D.O., MPH us Valerie Grimaldo MD LAB URINE ORDERABLES Final Result Performing Organization Address [facility] de Phone Number JERSON Sarha * (ABNORMAL) Comprehensive metabolic panel (08/07/2019 9:31 AM ELECTRIC POWER SUPERINTENDENT) Glucose 148(H) 65 - 99 mg/dL [facility] - [place] Comment: Fasting reference interval For someone without known diabetes, a glucose value >125 mg/dL indicates that they may have diabetes and this should be confirmed with a follow-up test. BUN 29(H) 7 - 25 mg/dL [facility] [place] Creatinine 1.72(H) 0.60 - 0.93 mg/dL [facility] [place] Comment: For patients >49 years of age, the reference limit for Creatinine is approximately 13% higher for people identified as -Thai. eGFR NON-AFR. GUYANESE 30(L) > OR = 60 mL/min/1. 73m2 [facility] [place] EGFR 34(L) > OR = 60 mL/min/1. 73m2 [facility] [place] BUN/creat ratio 17 6 - 22 (calc) [facility] [place] Sodium 141 135 - 146 mmol/L [facility] [place] Potassium, pl 4.3 3.5 - 5.3 mmol/L [facility] [place] Chloride 102 98 - 110 mmol/L [facility] [place] CO2 26 20 - 32 mmol/L [facility] [place] Calcium 9.7 8.6 - 10.4 mg/dL [facility] [place] Protein, sr 7.1 6.1 - 8.1 g/dL [facility] [place] Albumin 4.1 3.6 - 5.1 g/dL [facility] [place] GLOBULIN 3.0 1.9 - 3.7 g/dL (calc) [facility] [place] Alb/glob ratio 1.4 1.0 - 2.5 (calc) [facility] [place] Bilirubin, total 0.6 0.2 - 1.2 mg/dL [facility] [place] Alk phos 123 37 - 153 U/L [facility] [place] AST 10 10 - 35 U/L [facility] [place] ALT (SGPT) 8 6 - 29 U/L [facility] [place] Blood specimen (specimen) 08/07/2019 9:31 AM ELECTRIC POWER SUPERINTENDENT 08/07/2019 9:31 AM ELECTRIC POWER SUPERINTENDENT Narrative Resulting Agency Comment Performing Organization Information: Site ID: [place] Name: Asiya Knight Address: [address] [address] Director: Cody Castro D.O., MPH us Valerie Grimaldo MD LAB BLOOD ORDERABLES Final Result [facility] [place], [place] * Screening Mammogram 2D Bilateral (10/27/2017 10:50 [...] * Hepatitis C antibody (09/05/2017 1:37 PM ELECTRIC POWER SUPERINTENDENT) Hep C Ab Negative Negative NATASHA Blood specimen (specimen) 09/05/2017 1:37 PM ELECTRIC POWER SUPERINTENDENT 09/05/2017 8:35 PM ELECTRIC POWER SUPERINTENDENT Narrative NATASHA - 09/05/2017 9:21 PM ELECTRIC POWER SUPERINTENDENT Valerie Grimaldo MD LAB MICROBIOLOGY - GENERAL ORDERABLES Edited Result - Final NATASHA [address] Department [place] [address] * (ABNORMAL) Serum lipid panel (07/24/2016 9:05 AM ELECTRIC POWER SUPERINTENDENT) Cholesterol 222(H) 100 - 200 mg/dl CDR [...] last revised 2016. Serum 07/24/2016 9:05 AM ELECTRIC POWER SUPERINTENDENT us Valerie Grimaldo MD LAB BLOOD ORDERABLES Final Result CDR HISTORICAL RESULTS from Last 3 Months or Most Recently Relevant to Health Maintenance Insurance [facility] HMO REF [place] [id number] [facility] HMO REF [place] [id number] MEDICARE CIG[employer] MEDICARE ADV [facility] MDCR HMO REF Advance Directives For more information, please contact: [phone] Documents on File Type Date Recorded Patient Industrial Engineering Technician Expl anation ADVANCE DIRECTIVE 05/01/2018 2:42 PM POWER OF BOX TOE MAKER ADVANCE DIRECTIVE 05/01/2018 2:42 PM Care Teams Energy Trader Relationship Specialty Start Date End Date Julian Encarnacion MD 2 [facility] [address] [place] [address] PCP - General Family Medicine 11/22/20 [place] [address] [facility] [address] [place] [address] Pulmonary Disease 02/27/17 Wen Nelson MD [address] [place] [address] Obstetrics and Gynecology 02/27/17 José Miguel Alva MD [address] [facility] [address] [place] [address] Gynecologic Oncology 02/27/17 Drew Martínez MD [address] [facility] [address] [place] [address] Orthopedic Surgery 02/27/17 Lopez Nunez DO [address] [place] [address] Consulting Physician Gastroenterology 04/25/17 Autumn Chapman OD [address] [place] [address] Optometry 04/28/17 [place] [address] [facility] [address] [place] [address] Consulting Physician Cardiology 09/07/17 Tess Brennan MD 2 [facility] [address] [address] Referring Physician Gastroenterology 09/25/17 Tee Moura MD [address] [address] [address] Referring Physician Surgery 11/29/17 Michel Linda MD [address] [address] Referring Physician General Surgery 03/11/19 Verena Crespo MD [address] [facility] [address] Consulting Physician Nephrology 03/13/19
--- OUTSIDE RECORDS SUMMARY | 2025-01-31 08:14 | XMS_ITS | Encounter Summary ---
Author Organization [facility] Address [address] [place] [address] Phone Care Team Providers Care Director Emergency Name Role Phone Valerie Grimaldo MD Primary Care Provider + [phone] Cody Polk MD Unavailable Wen Nelson MD Unavailable José Miguel Alva MD Unavailable [phone] Drew Martínez MD Unavailable [phone] Lopez Nunez DO Unavailable [phone] Autumn Chapman OD Unavailable [phone] Alcon Camacho MD Unavailable [phone] Tess Brennan MD Unavailable [phone] Tee Moura MD Unavailable [phone] Michel Linda MD Unavailable Verena Crespo MD Unavailable [phone] Unknown, Notinfile Primary Care Provider Unavail able Julian Encarnacion MD Primary Care Provider [phone] Encounter Details Date Type Department Care Team (Late st Contact Info) Description 01/16/2017 Orders Only [facility] [address] [place] [address] Valerie Grimaldo MD [address] [place] [address] Diabetes mellitus without complication (HCC) (Primary Dx) Social History Tobacco Use Types Packs/Day Years Used Date Smoking Tobacco: Never Alcohol Use Standard Drinks/Week Comments No 0 (1 standard drink = 0.6 oz pur e alcohol) Comments Unknown Sex and Gender Information Value Date Recorded Sex Assigned at Not on file 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 Sex 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 Gender Identity Not on file Sexual [...] uncontrolled documented in this encounter Care Teams Director Emergency Relationship Specialty Start Date End Date Valerie Grimaldo MD PCP - General 09/27/16 03/16/20 Unknown, Notinfile PCP - General 03/17/20 11/21/20 Julian Encarnacion MD 2 [facility] [address] [place] [address] PCP - General Family Medicine 11/22/20 [place] [address] [facility] H[address] [place] [address] Pulmonary Disease 02/27/17 Wen Nelson MD [address] [place] [address] Obstetrics and Gynecology 02/27/17 José Miguel Alva MD [address] [facility] [address] [place] [address] Gynecologic Oncology 02/27/17 Drew Martínez MD [address] [facility] [address] [place] [address] Orthopedic Surgery 02/27/17 Lopez Nunez DO [address] [place] [address] Consulting Physician Gastroenterology 04/25/17 Autumn Chapman OD [address] [place] [address] Optometry 04/28/17 [place] [address] [facility] [address] [place] [address] Consulting Physician Cardiology 09/07/17 Tess Brennan MD 2 [facility] [address] [address] Referring Physician Gastroenterology 09/25/17 Tee Moura MD [address] [facility] [address] [address] Referring Physician Surgery 11/29/17 Michel Linda MD [address] [facility] [address] [address] Referring Physician General Surgery 03/11/19 Verena Crespo MD 2 [facility] [address] [address] Consulting Physician Nephrology 03/13/19 documented as of this encounter
--- OUTSIDE RECORDS SUMMARY | 2025-01-31 08:14 | XMS_ITS | Encounter Summary ---
Author Organization [facility] Address [address] [place] [address] Phone Care Team Providers Care Chick Sexer Name Role Phone Valerie Grimaldo MD Primary Care Provider + [phone] Cody Polk MD Unavailable [phone] Wen Nelson MD Unavailable José Miguel Alva MD Unavailable [phone] Drew Martínez MD Unavailable [phone] Lopez Nunez DO Unavailable [phone] Autumn Chapman OD Unavailable [phone] Alcon Camacho MD Unavailable [phone] Tess Brennan MD Unavailable [phone] Tee Moura MD Unavailable [phone] Michel Linda MD Unavailable Verena Crespo MD Unavailable [phone] Unknown, Notinfile Primary Care Provider Unavail able Julian Encarnacion MD Primary Care Provider Encounter Details Date Type Department Care Team (Late st Contact Info) Description 10/27/2017 Orders Only [facility] Provider, MD Tayler [address] [place] [address] Social History Tobacco Use Types Packs/Day Years Used Date Smoking Tobacco: Never Smokeless Tobacco: Never Alcohol Use Standard Drinks/Week Comments No 0 (1 standard drink = 0.6 oz pur e alcohol) Comments No Sex and Gender Information Value Date Recorded Sex Assigned at Not on file Legal Sex 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 H23[address] [place] [address] Pulmonary Disease 02/27/17 Wen Nelson MD [address] [place] [address] Obstetrics and Gynecology 02/27/17 José Miguel Alva MD [address] [place] [address] [place] [address] Gynecologic Oncology 02/27/17 Drew Martínez MD [address] [place] [address] [place] [address] Orthopedic Surgery 02/27/17 Lopez Nunez DO [address] [place] [address] [place] [address] Consulting Physician Gastroenterology 04/25/17 Autumn Chapman OD [address] [place] [address] Optometry 04/28/17 [place] [address] [facility] [address] [place] [address] Consulting Physician Cardiology 09/07/17 Tess Brennan MD [address] [facility] [facility] [address] Referring Physician Gastroenterology 09/25/17 Tee Moura MD [address] [facility] [facility] [address] Referring Physician Surgery 11/29/17 Michel Linda MD [address] [address] [address] Referring Physician General Surgery 03/11/19 Verena Crespo MD 2 [facility] [address] [place] [address] Consulting Physician Nephrology 03/13/19 documented as of this encounter
--- OUTSIDE RECORDS SUMMARY | 2025-01-31 08:14 | XMS_ITS | Encounter Summary ---
Author Organization [facility] Address [address] [place] [address] Phone Care Team Providers Care Turf Farmer Name Role Phone Julian Encarnacion MD Primary Care Provider [phone] Travis Torrez MD Primary Care Provider Carolee Tay APRN, CHEMICAL RESEARCH WORKER Unavailable Reason for Visit * Reason Comments Medication Refill Encounter Details Date Type Department Care Team (Late st Contact Info) Description 04/05/2021 Refill [facility] - Family Medicine [facility] #2 [place] [address] Julina Encarnacion MD #[address] [address] Medication Refill Social History Tobacco Use Types [...] RN - 04/05/2021 1:35 PM CDT Per [place] PDMP last fill date 02/19/21. Medication failed [...] Visits 1 month ago Arthralgia, unspecified joint [facility] Julian Hines MD 5 months ago Type 2 diabetes mellitus without complication, with long-term current use of insulin ([facility] Julian Graham MD 8 months ago Type 2 diabetes mellitus without complication, with long-term current use of insulin ([facility]) [facility] Julian Graham MD 10 months ago Hematemesis, presence of nausea not specified [facility] Julian Graham MD 11 months ago Hematemesis, presence of nausea not specified [facility] Julian Graham MD Upcoming Appointments AIR PURIFIER SERVICER - Recent and Past Visits Recent Visits [...] [place] 02/18/20 Office Visit Aletha Anand, PAC [facility] Showing recent visits within past 460 [...] st Contact Info) Description 08/15/2025 10:00 AM GENERAL UTILITY MAINTENANCE REPAIRER Office Visit [facility] - Cardiology [facility] #2 [place] [address] Carolee Tay APRN, CHEMICAL RESEARCH WORKER #[address] [place] [address] documented as of this encounter Visit Diagnoses Diagnosis Arthralgia, unspecified joint documented in this encounter Additional Health Concerns Infection Onset Date Last Indicated Resolved Time COVID - 19 07/20/2024 07/20/2024 07/20/2024 3:10 AM GENERAL UTILITY MAINTENANCE REPAIRER Assessment Noted Time PHQ-9 Depression Total Score: 0 04/24/20 10:39 AM CDT documented as of this encounter Care Teams Turf Farmer Relationship Specialty Start Date End Date Julian Encarnacion MD #[address] [address] PCP - General Family Medicine 03/28/20 04/23/22 Travis Torrez MD [address] [place] [address] PCP - General Family Medicine 05/21/22 Carolee Tay APRN, KIM [address] [place] [address] Nurse Practitioner Certified Nurse Practitioner 08/20/24 documented as of this encounter
--- OUTSIDE RECORDS SUMMARY | 2025-01-31 08:14 | XMS_ITS | Encounter Summary ---
Author Organization [facility] Address [address] [place] [address] Phone Care Team Providers Care Electric Truck Driver Name Role Phone Julian Encarnacion MD Primary Care Provider Travis Torrez MD Primary Care Provider Carolee Tay APRN, CERTIFIED PARALEGAL Unavailable Reason for Visit * Reason Comments Medication Refill Encounter Details Date Type Department Care Team (Late st Contact Info) Description 01/12/2021 Refill [facility] - Family Medicine [facility] #2 [place] [address] Julian Encarnacion MD #[address] [address] Medication Refill Social History Tobacco Use Types [...] insulin ([facility]) [facility] Family [facility] Julian Hines MD 5 months ago Type 2 diabetes mellitus without complication, with long-term current use of insulin ([facility]) [facility] Family [facility] - Julian Hines MD 7 months ago Hematemesis, presence of nausea not specified [facility] Julian Hines MD 8 months ago Hematemesis, presence of nausea not specified [facility] Julian Hines MD 9 months ago Preop cardiovascular exam [facility] Family Medicine Julian Graham MD Upcoming Appointments Future Appointments In 5 days Julian Encarnacion MD [facility] Family [facility], [facility] In 1 month Cristina Garcia APN, KIM [facility] Cancer Center Oncology Services, [facility] OIL WELL SERVICE OPERATOR - Recent and Past Visits Recent Visits Date Type Provider Dept 10/18/20 Office Visit Julian Encarnacion MD [facility] [place] 07/20/20 Office Visit Julian Encarnacion MD [facility] [place] 06/08/20 Office Visit [facility] [place] 05/10/20 Office Visit Julian Encarnacion MD [facility] [place] 03/23/20 Office Visit Julian Encarnacion MD [facility] [place] 02/18/20 Office Visit Aletha Anand PAC [facility] Showing recent visits within past 460 days with a meds authorizing provider and meeting all other requirements Future Appointments Date Type Provider Dept 01/17/21 Appointment Julian Encarnacion MD [facility] Showing future appointments within next 90 days with a meds authorizing provider and meeting all other requirements documented in this encounter Plan of Treatment Upcoming Encounters Date Type Department Care Team (Late st Contact Info) Description 08/15/2025 10:00 AM DULITE MACHINE BLUER Office Visit [facility] Medical [facility] - Cardiology - [place] #2 [place] [address] Carolee Tay APRN, KIM #2 [facility] [place] [address] documented as of this encounter Visit Diagnoses Not on filedocumented in this encounter Additional Health Concerns Infection Onset Date Last Indicated Resolved Time COVID - 19 07/20/2024 07/20/2024 07/20/2024 3:10 AM DULITE MACHINE BLUER Assessment Noted Time PHQ-9 Depression Total Score: 0 04/24/20 10:39 AM CDT documented as of this encounter Care Teams Electric Truck Driver Relationship Specialty Start Date End Date Julian Encarnacion MD [address] [address] [address] PCP - General Family Medicine 03/28/20 04/23/22 Travis Torrez MD [address] [place] [address] PCP - General Family Medicine 05/21/22 Carolee Tay APRN, CERTIFIED PARALEGAL [address] [place] [address] Nurse Practitioner Certified Nurse Practitioner 08/20/24 documented as of this encounter
--- OUTSIDE RECORDS SUMMARY | 2025-01-31 08:14 | XMS_ITS | Encounter Summary ---
Author Organization [facility] Address [address] [place] [address] Phone Care Team Providers Care Remote Broadcast Technician Name Role Phone Valerie Grimaldo MD Primary Care Provider + [phone] Cody Polk MD Unavailable [phone] Wen Nelson MD Unavailable José Miguel Alva MD Unavailable [phone] Drew Martínez MD Unavailable [phone] Lopez Nunez DO Unavailable [phone] Autumn Chapman OD Unavailable [phone] Alcon Camacho MD Unavailable [phone] Tess Brennan MD Unavailable [phone] Tee Moura MD Unavailable [phone] Michel Linda MD Unavailable Verena Crespo MD Unavailable [phone] Unknown, Notinfile Primary Care Provider Unavail able Julian Encarnacion MD Primary Care Provider Encounter Details Date Type Department Care Team (Late st Contact Info) Description 10/20/2017 Orders Only [facility] Provider, MD Tayler [address] [place] [address] Social History Tobacco Use Types Packs/Day Years Used Date Smoking Tobacco: Never Smokeless Tobacco: Never Alcohol Use Standard Drinks/Week Comments No 0 (1 standard drink = 0.6 oz pur e alcohol) Comments No Sex and Gender Information Value Date Recorded Sex Assigned at Not on file Legal Sex 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 [place] H[address] [place] [address] Pulmonary Disease 02/27/17 Wen Nelson MD [address] [place] [address] Obstetrics and Gynecology 02/27/17 José Miguel Alva MD [address] [facility] [address] [place] [address] Gynecologic Oncology 02/27/17 Drew Martínez MD [address] [place] [address] Orthopedic Surgery 02/27/17 Lopez Nunez DO [address] [place] [address] Consulting Physician Gastroenterology 04/25/17 Autumn Chapman OD [address] [place] [address] Optometry 04/28/17 [place] [address] [facility] [address] [place] [address] Consulting Physician Cardiology 09/07/17 Tess Brennan MD [address] [facility] [address] Referring Physician Gastroenterology 09/25/17 Tee Moura MD [address] [address] Referring Physician Surgery 11/29/17 Michel Linda MD [address] [address] Referring Physician General Surgery 03/11/19 Verena Crespo MD 2 [facility] [address] [place] [address] Consulting Physician Nephrology 03/13/19 documented as of this encounter
--- OUTSIDE RECORDS SUMMARY | 2025-01-31 08:14 | XMS_ITS | Encounter Summary ---
Author Organization [facility] Address [address] [place] [address] Phone Care Team Providers Care Environmental Health Safety Engineer Name Role Phone Julian Encarnacion MD Primary Care Provider Travis Torrez MD Primary Care Provider Carolee Tay APRN, ENGLISH INSTRUCTOR Unavailable Reason for Visit * Reason Comments Medication Refill Encounter Details Date Type Department Care Team (Late st Contact Info) Description 06/20/2021 Refill [facility] - Family Medicine [facility] #2 [place] [address] Julian Encarnacion MD #[address] [address] Medication Refill Social History Tobacco Use Types [...] Kenyetta Moran RMA - 06/27/2021 10:55 AM HOLISTIC NUTRITIONIST Left voicemail STIC NUTRITIONIST * Telephone Encounter - Dominique Conway RN - 06/26/2021 10:52 AM CST Patient needs appointment STIC NUTRITIONIST * Telephone Encounter - Carola Patiño MA - 06/25/2021 3:43 PM HOLISTIC NUTRITIONIST Message left on Medication refill voice mail: Patient would like to know why the doctor has refusedher pain medication (Ty#3) ? See previous message from 06/21/21 . Please call patient @[phone] STIC NUTRITIONIST * Telephone Encounter - Kenyetta Moran RMA - 06/21/2021 11:19 AM HOLISTIC NUTRITIONIST Left voicemiail STIC NUTRITIONIST * Telephone Encounter - Dominique Conway RN - 06/20/2021 3:56 PM CST PCP requests patient appointment STIC NUTRITIONIST * Telephone Encounter - Dominique Conway RN [...] Dept 02/21/21 Office Visit Julian Encarnacion MD [facility] [place] 10/18/20 Office Visit Julian Encarnacion MD [facility] [place] 07/20/20 Office Visit Julian Encarnacion MD [facility] [place] Showing recent visits within past 365 days and meeting all other requirements Future Appointments No visits were found meeting these conditions. Showing future appointments within next 90 days and meeting all other requirements STIC NUTRITIONIST documented in this encounter Plan of Treatment Upcoming Encounters Date Type Department Care Team (Late st Contact Info) Description 08/15/2025 10:00 AM HOLISTIC NUTRITIONIST Office Visit [facility] - Cardiology - [place] #2 [place] [address] Carolee Tay APRN, ENGLISH INSTRUCTOR [address]2 [place] [address] documented as of this encounter Visit Diagnoses Diagnosis Arthralgia, unspecified joint documented in this encounter Additional Health Concerns Infection Onset Date Last Indicated Resolved Time COVID - 19 07/20/2024 07/20/2024 07/20/2024 3:10 AM HOLISTIC NUTRITIONIST Assessment Noted Time PHQ-9 Depression Total Score: 0 04/24/20 20 10:39 AM CDT documented as of this encounter Care Teams Environmental Health Safety Engineer Relationship Specialty Start Date End Date Julian Encarnacion MD #[address] [address] PCP - General Family Medicine 03/28/20 04/23/22 Travis Torrez MD [address] [place] [address] PCP - General Family Medicine 05/21/22 Carolee Tay APRN, ENGLISH INSTRUCTOR #2 [place] [address] Nurse Practitioner Certified Nurse Practitioner 08/20/24 documented as of this encounter
--- OUTSIDE RECORDS SUMMARY | 2025-01-31 08:14 | XMS_ITS | Encounter Summary ---
Author Organization [facility] Address [address] [place] [address] Phone Care Team Providers Care Washer Engineer Helper Name Role Phone Travis Torrez MD Primary Care Provider [phone] Carolee Tay APRN, DAY HAUL OR FARM CHARTER BUS DRIVER Unavailable Reason for Visit * Reason Comments Medication Refill Encounter Details Date Type Department Care Team (Late Contact Info) Description 03/06/2023 Refill [facility] - Family Medicine [facility] #2 [place] [address] Julian Encarnacion MD #[address] [address] Medication Refill Social History Tobacco Use Types [...] st Contact Info) Description 08/15/2025 10:00 AM RESEARCH ENVIRONMENTAL ENGINEER Office Visit [facility] Medical [facility] - Cardiology [facility] #2 [place] [address] Carolee Tay APRN, DAY HAUL OR FARM CHARTER BUS DRIVER [address] [place] [address] documented as of this encounter Visit Diagnoses Not on filedocumented in this encounter Additional Health Concerns Infection Onset Date Last Indicated Resolved Time COVID - 19 07/20/2024 07/20/2024 07/20/2024 3:10 AM RESEARCH ENVIRONMENTAL ENGINEER Assessment Noted Time PHQ-9 Depression Total Score: 0 04/24/20 10:39 AM CDT documented as of this encounter Care Teams Washer Engineer Helper Relationship Specialty Start Date End Date Travis Torrez MD [address] [place] [address] PCP - General Family Medicine 05/21/22 Carolee Tay APRN, DAY HAUL OR FARM CHARTER BUS DRIVER [address]2 [place] [address] Nurse Practitioner Certified Nurse Practitioner 08/20/24 documented as of this encounter
--- OUTSIDE RECORDS SUMMARY | 2025-01-31 08:14 | XMS_ITS | Encounter Summary ---
Author Organization [facility] Address [address] [place] [address] Phone Care Team Providers Care State Game Protector Name Role Phone Julian Encarnacion MD Primary Care Provider [phone] Travis Torrez MD Primary Care Provider [phone] Carolee Tay APRN, MEDICAL COMMUNICATION SPECIALIST Unavailable Reason for Visit * Reason Comments Medication Refill Encounter Details Date Type Department Care Team (Late st Contact Info) Description 02/15/2021 Refill [facility] - Family Medicine [facility] #2 [place] [address] Julian Encarnacion MD #[address] [address] Medication Refill Social History Tobacco Use Types [...] with long-term current use of insulin (HCC) [facility] - Julian Hines MD 7 months ago Type 2 diabetes mellitus without complication, with long-term current use of insulin (HCC) [facility] Julian Graham MD 8 months ago Hematemesis, presence of nausea not specified [facility] Julian Graham MD 9 months ago Hematemesis, presence of nausea not specified [facility] Julian Graham MD 10 months ago Preop cardiovascular exam [facility] Julian Graham MD Upcoming Appointments Future Appointments In 1 week Cristina Garcia, HOT PLATE PLYWOOD PRESS LABORER, MEDICAL COMMUNICATION SPECIALIST [facility] - Cancer Center Oncology Services, [facility] SIGHT MOUNTER - Recent and Past Visits Recent Visits Date Type Provider Dept 10/18/20 Office [facility] 06/08/20 Office Visit [facility] 05/10/20 Office Visit [facility] 03/23/20 [facility] [place] 02/18/20 Office Visit Aletha Anand, CAITLIN [facility] Showing recent visits within past 460 days [...] st Contact Info) Description 08/15/2025 10:00 AM MICROELECTRONICS TECHNICIAN Office Visit [facility] - Cardiology [facility] #2 [place] [address] Carolee Tay APRN, MEDICAL COMMUNICATION SPECIALIST #2 [place] [address] documented as of this encounter Visit Diagnoses Not on filedocumented in this encounter Additional Health Concerns Infection Onset Date Last Indicated Resolved Time COVID - 19 07/20/2024 07/20/2024 07/20/2024 3:10 AM MICROELECTRONICS TECHNICIAN Assessment Noted Time PHQ-9 Depression Total Score: 0 04/24/20 10:39 AM CDT documented as of this encounter Care Teams State Game Protector Relationship Specialty Start Date End Date Julian Encarnacion MD #[address] [address] PCP - General Family Medicine 03/28/20 04/23/22 Travis Torrez MD [address] [place] [address] PCP - General Family Medicine 05/21/22 Carolee Tay APRN, MEDICAL COMMUNICATION SPECIALIST #2 [place] [address] Nurse Practitioner Certified Nurse Practitioner 08/20/24 documented as of this encounter
--- OUTSIDE RECORDS SUMMARY | 2025-01-31 08:14 | XMS_ITS | Encounter Summary ---
Author Organization [facility] Address [address] [place] [address] Phone Care Team Providers Care Apiarist Name Role Phone Julian Encarnacion MD Primary Care Provider [phone] Travis Torrez MD Primary Care Provider [phone] Carolee Tay APRN, PRINCIPAL QUALITY ENGINEER Unavailable Reason for Visit * Reason Comments Medication Refill Encounter Details Date Type Department Care Team (Late st Contact Info) Description 08/06/2021 Refill [facility] #2 [place] [address] Julian Encarnacion MD [address] [address] Medication Refill Social History Tobacco Use Types [...] Autumn Patino RN - 08/07/2021 2:23 PM CAR DELIVERER Patient is not wanting an appointment, just wanted enough medication until she could see her new Dr. DELIVERER * Telephone Encounter - Kenyetta Moran RMA - 08/07/2021 2:13 PM CAR DELIVERER Left voicemail DELIVERER * Telephone Encounter - Dominique Conway RN - 08/07/2021 10:38 AM CST Provider requests patient appointment DELIVERER * Telephone Encounter - Dominique Conway RN [...] Dept 02/21/21 Office Visit Julian Encarnacion MD [facility] [place] Showing recent visits within past 182 days and meeting all other requirements Future Appointments No visits were found meeting these conditions. Showing future appointments within next 90 days and meeting all other requirements DELIVERER documented in this encounter Plan of Treatment Upcoming Encounters Date Type Department Care Team (Late st Contact Info) Description 08/15/2025 10:00 AM CAR DELIVERER Office Visit [facility] - Cardiology - [facility] [address] [place] [address] Carolee Tay APRN, KIM [address] [place] [address] documented as of this encounter Visit Diagnoses Not on filedocumented in this encounter Additional Health Concerns Infection Onset Date Last Indicated Resolved Time COVID - 19 07/20/2024 07/20/2024 07/20/2024 3:10 AM CAR DELIVERER Assessment Noted Time PHQ-9 Depression Total Score: 0 04/24/20 10:39 AM CDT documented as of this encounter Care Teams Apiarist Relationship Specialty Start Date End Date Julian Encarnacion MD [address] [address] PCP - General Family Medicine 03/28/20 04/23/22 Travis Torrez MD [address] [place] [address] PCP - General Family Medicine 05/21/22 Carolee Tay APRN, KIM [address] [place] [address] Nurse Practitioner Certified Nurse Practitioner 08/20/24 documented as of this encounter
--- OUTSIDE RECORDS SUMMARY | 2025-01-31 08:14 | XMS_ITS | Encounter Summary ---
Author Organization [facility] Address [address] [place] [address] Phone Care Team Providers Care Yard Associate Name Role Phone Julian Encarnacion MD Primary Care Provider [phone] Travis Torrez MD Primary Care Provider Carolee Tay APRN, ELECTRICIAN APPRENTICE Unavailable Reason for Visit * Reason Comments Medication Refill Encounter Details Date Type Department Care Team (Late st Contact Info) Description 10/16/2020 Refill [facility] - Family Medicine [facility] #2 [place] [address] Julian Encarnacion MD #[address] [address] Medication Refill Social History Tobacco Use Types [...] with long-term current use of insulin (HCC) [facility] - Julian Hines MD 4 months ago Hematemesis, presence of nausea not specified [facility] Julian Graham MD 5 months ago Hematemesis, presence of nausea not specified [facility] Julian Graham MD 6 months ago Preop cardiovascular exam [facility] Julian Graham MD 8 months ago Coronary artery disease with angina pectoris, unspecified vessel or lesion type, unspecified whether picayune or transplanted heart (HCC) [facility] - Aletha Benson, CAITLIN Upcoming Appointments Future Appointments Tomorrow Julian Encarnacion MD [facility] - [place], [facility] In 6 days Cristina Garcia APN, ELECTRICIAN APPRENTICE [facility] On[facility], [facility] In [address] VACCINE CLINIC [facility] - [facility] COMPLIANCE VICE PRESIDENT - Recent and Past Visits Recent Visits Date Type Provider Dept 07/20/20 Office Visit Julian Encarnacion MD [facility] [place] 06/08/20 Office Visit Julian Encarnacion MD [facility] 05/10/20 Office Visit Julian Encarnacion MD [facility] 03/23/20 Office Visit Julian Encarnacion MD [facility] 02/18/20 Office Visit Aletha Anand PAC [facility] Showing recent visits within past 460 days with a meds authorizing provider and meeting all other requirements Future Appointments Date Type Provider Dept 10/18/20 Appointment Julian Encarnacion MD [facility] Showing future appointments within next 90 days with a meds authorizing provider and meeting all other requirements documented in this encounter Plan of Treatment Upcoming Encounters Date Type Department Care Team (Late st Contact Info) Description 08/15/2025 10:00 AM TRANSPORTATION MECHANIC Office Visit [facility] - Cardiology - [place] [address]2 [place] [address] Carolee Tay APRN, ELECTRICIAN APPRENTICE [address]2 [place] [address] documented as of this encounter Visit Diagnoses Not on filedocumented in this encounter Additional Health Concerns Infection Onset Date Last Indicated Resolved Time COVID - 19 07/20/2024 07/20/2024 07/20/2024 3:10 AM TRANSPORTATION MECHANIC Assessment Noted Time PHQ-9 Depression Total Score: 0 04/24/20 10:39 AM CDT documented as of this encounter Care Teams Yard Associate Relationship Specialty Start Date End Date Julian Encarnacion MD #[address] [address] PCP - General Family Medicine 03/28/20 04/23/22 Travis Torrez MD [address] [place] [address] PCP - General Family Medicine 05/21/22 Carolee Tay APRN, ELECTRICIAN APPRENTICE [address] [place] [address] Nurse Practitioner Certified Nurse Practitioner 08/20/24 documented as of this encounter
--- OUTSIDE RECORDS SUMMARY | 2025-01-31 08:14 | XMS_ITS | Clinical Summary ---
Author Organization [facility] Address [address] [place] [address] Care Team Providers Care Vp Marketing Services And Skin Name Role Phone Cody Polk MD Unavailable [phone] Wen Nelosn MD Unavailable José Miguel Alva MD Unavailable [phone] Drew Martínez MD Unavailable [phone] Lopez Nunez DO Unavailable [phone] Autumn Chapman OD Unavailable [phone] Alcon Camacho MD Unavailable [phone] Tess Brennan MD Unavailable [phone] Tee Moura MD Unavailable [phone] Michel Linda MD Unavailable Verena Crespo MD Unavailable [phone] Julian Encarnacion MD Primary Care Provider Allergies [...] disease, with long-term current use of insulin ([facility]) Inject 30 Units under the skin [...] controlled Assessment & Plan (08/10/2019 11:00 AM OIL BOILER): Patient with improvement in HgbA1C from 10.4 [...] sleep apnea syndrome, 327.23. AXIS B: Polysomnography, [address]. Ischemic heart disease due to coronary artery [...] into coronary artery HYSTERECTOMY 06/30/2014 - 06/29/2015 [facility], staging - IA G1 uterine adenocarcinoma. [...] ASHD (arteriosclerotic heart disease) PE (pulmonary thromboembolism) 03/2014 Uterine cancer (HCC) Dental disease PUD (peptic ulcer disease) 2 para 2 NSTEMI (non-ST elevated myoc ardial infarction) ([facility]) 09/07/2017 Acute saddle pulmonary embol ism with acute cor pulmonale (HCC) 09/07/2017 Family History Medical History Relation Name [...] on file Legal Sex Female 11:50 PM OIL BOILER Gender Identity Not on file Sexual Orientation [...] Comments Blood Pressure 110/60 08/10/2019 9:44 AM OIL BOILER Pulse 68 08/10/2019 9:44 AM OIL BOILER Temperature 36.1 C (97 F) 05/25/2019 7:56 AM OIL BOILER Respiratory Rate 12 08/10/2019 9:44 AM OIL BOILER Oxygen Saturation 97% 08/10/2019 9:44 AM OIL BOILER Inhaled Oxygen Concentration - - Weight 113.4 kg (250 lb) 08/10/2019 9:44 AM OIL BOILER Height 157.5 cm (5' 2) 01/26/2019 9:45 [...] - 2023-2 5 season) 2024 10/25/2020, 09/26/2020 Influenza Vaccine (#1) 2025 , 05/12/2023, 03/23/2020, Additional history exists Pneumococcal vaccine 65+ Completed 03/17/2015, 01/2014 Hepatitis C Screening Completed 09/05/2017 Breast Cancer Screening-Mammogram Discontinued 018 Zoster Vaccine Completed 03/23/2024, 08/14/2023 Procedures Procedure Name Priority Date/Time Associated Diagnosis Comments HEMOGLOBIN A1C Routine 11/23/2019 9:21 AM CDT Type 2 diabetes mellitus with stage 4 chronic kidney disease, with long-term current use of insulin (HCC) COMPREHENSIVE METABOLIC PANEL Routine 08/07/2019 9:31 AM OIL BOILER Type 2 diabetes mellitus with stage 4 chronic kidney disease, with long-term current use of insulin (HCC) Hypertension complicating diabetes (HCC) ALBUMIN CREATININE RATIO, URINE Routine 08/07/2019 9:31 AM OIL BOILER Type 2 diabetes mellitus with stage 4 chronic kidney disease, with long-term current use of insulin (HCC) Hypertension complicating diabetes (HCC) SCREENING MAMMOGRAM 2D BILATERAL Schedule Routine, Read Routine (OP Routine) 10/27/2017 10:50 AM CDT Encounter for screening mammogram for malignant neoplasm of breast HEPATITIS C ANTIBODY Routine 09/05/2017 1:37 PM OIL BOILER SERUM LIPID PANEL Routine 07/24/2016 9:0 5 AM OIL BOILER from Last 3 Months or Most Recently [...] MD LAB BLOOD ORDERABLES Final Result [facility] [address] [address] * (ABNORMAL) Albumin Creatinine Ratio, Urine (08/07/2019 9:31 AM OIL BOILER) Creatinine, ur 142 20 - 275 mg/dL [facility] [place] Microalbumin, ur 17.3 See Note: mg/dL [facility] [place] Comment: Reference Range: Reference Range Not established Microalbumin/creat ratio 122(H) <30 mcg/mg creat [facility] [place] Comment: The ADA defines abnormalities in albumin excretion as follows: Category Result (mcg/mg creatinine) Normal <30 Microalbuminuria 30-299 Clinical albuminuria > OR = 300 The ADA recommends that at least two of three specimens collected within a 3-6 month period be abnormal before considering a patient to be within a diagnostic category. Urine 08/07/2019 9:31 AM OIL BOILER 08/07/2019 9:31 AM OIL BOILER Narrative Resulting Agency Comment Performing Organization Information: Site ID: [place] Name: [email or web address] Address: [address] [address] Director: Cody Castro D.O., MPH us Valerie Grimaldo MD LAB URINE ORDERABLES Final Result [facility] [place], [place] * (ABNORMAL) Comprehensive metabolic panel (08/07/2019 9:31 AM OIL BOILER) Glucose 148(H) 65 - 99 mg/dL [facility] [place] Comment: Fasting reference interval [...] approximately 13% higher for people identified as -Surinamese. eGFR NON-AFR. CYPRIOT 30(L) > OR = 60 mL/min/1. 73m2 [...] [place] Blood specimen (specimen) 08/07/2019 9:31 AM OIL BOILER 08/07/2019 9:31 AM OIL BOILER Narrative Resulting Agency Comment Performing Organization Information: Site ID: [place] Name: [facility] Address: [address] [place] [address] [place] [address] Director: Cody Castro D.O., MPH us Valerie Grimaldo MD LAB BLOOD ORDERABLES Final Result [facility] [place] * Screening Mammogram 2D Bilateral (10/27/2017 10:50 [...] * Hepatitis C antibody (09/05/2017 1:37 PM OIL BOILER) Hep C Ab Negative Negative [facility] Blood specimen (specimen) 09/05/2017 1:37 PM OIL BOILER 09/05/2017 8:35 PM OIL BOILER Narrative [facility] - 09/05/2017 9:21 PM OIL BOILER Valerie Grimaldo MD LAB MICROBIOLOGY - GENERAL ORDERABLES Edited Result - Final [facility] [address] [address] Department of Laboratories [place] [id number] * (ABNORMAL) Serum lipid panel (07/24/2016 9:05 AM OIL BOILER) Cholesterol 222(H) 100 - 200 mg/dl CDR [...] last revised 2016. Serum 07/24/2016 9:05 AM OIL BOILER Valerie Grimaldo MD LAB BLOOD ORDERABLES Final Result [facility] HISTORICAL RESULTS from Last 3 Months or Most Recently Relevant to Health Maintenance [facility] REF [facility] HMO REF MEDICARE [facility] MEDICARE ADV [facility] MDCR HMO REF Advance Directives For more information, please contact: [phone] Documents on File Type Date Recorded Patient Catalogue Librarian Expl anation ADVANCE DIRECTIVE 05/01/2018 2:42 PM POWER OF CAN CAPPER ADVANCE DIRECTIVE 05/01/2018 2:42 PM Care Teams Vp Marketing Services And Skin Relationship Specialty Start Date End Date Julian Encarnacion MD [address] [facility] [address] [place] [address] PCP - General Family Medicine 11/22/20 [place] [address] [address] [facility] [address] [place], [place] [id number] Pulmonary Disease 02/27/17 Wen Nelson MD [address] [place] [address] Obstetrics and Gynecology 02/27/17 José Miguel Alva MD [address] [facility] [address] [place] [address] Gynecologic Oncology 02/27/17 Drew Martínez MD [address] [place] [address] Orthopedic Surgery 02/27/17 Lopez Nunez DO [address] [place] [address] Consulting Physician Gastroenterology 04/25/17 Autumn Chapman OD [address] [facility] [place] [address] Optometry 04/28/17 [place] [address] [address] [facility] [address] [place] [address] Consulting Physician Cardiology 09/07/17 Tess Brennan MD [address] [facility] [address] [address] Referring Physician Gastroenterology 09/25/17 Tee Moura MD [address] [address] Referring Physician Surgery 11/29/17 Michel Linda MD [address] [address] Referring Physician General Surgery 03/11/19 Verena Crespo MD [address] [address] Consulting Physician Nephrology 03/13/19
--- OUTSIDE RECORDS SUMMARY | 2025-01-31 08:14 | XMS_ITS | Encounter Summary ---
Author Organization [facility] Address [address] [place] [address] Phone Care Team Providers Care Customer Relations Specialist Name Role Phone Julian Encarnacion MD Primary Care Provider [phone] Travis Torrez MD Primary Care Provider [phone] Carolee Tya APRN, EMOTIONALLY IMPAIRED TEACHER Unavailable Reason for Visit * Reason Comments Medication Refill Encounter Details Date Type Department Care Team (Late st Contact Info) Description 07/20/2021 Refill [facility] #2 [place] [address] Julian Encarnacion MD #[address] [address] Medication Refill Social History Tobacco Use Types [...] (GLUCOPHAGE-XR) 500 MG TABLET SR 24 HR [[id number]] 1031 Status: Active Ordering user: Julian Encarnacion MD 11/15/20 103 Authorized by: Julian Encarnacion MD Frequency: ??11/15/20 - Until Discontinued Released by: Julian Encarnacion MD 11/15/20 103 [id number] MBLER TRUCK TRAILER documented in this encounter Plan of Treatment Upcoming Encounters Date Type Department Care Team (Late st Contact Info) Description 08/15/2025 10:00 AM ASSEMBLER TRUCK TRAILER Office Visit [facility] - Cardiology - [place] [address]2 [place] [address] Carolee Tay APRN, EMOTIONALLY IMPAIRED TEACHER [address] [place] [address] documented as of this encounter Visit Diagnoses Not on filedocumented in this encounter Additional Health Concerns Infection Onset Date Last Indicated Resolved Time COVID - 19 07/20/2024 07/20/2024 07/20/2024 3:10 AM ASSEMBLER TRUCK TRAILER Assessment Noted Time PHQ-9 Depression Total Score: 0 04/24/20 10:39 AM CDT documented as of this encounter Care Teams Customer Relations Specialist Relationship Specialty Start Date End Date Julian Encarnacion MD #[address] [address] PCP - General Family Medicine 03/28/20 04/23/22 Travis Torrez MD [address] [place] [address] PCP - General Family Medicine 05/21/22 Carolee Tay APRN, EMOTIONALLY IMPAIRED TEACHER #[address] [place] [address] Nurse Practitioner Certified Nurse Practitioner 08/20/24 documented as of this encounter
--- OUTSIDE RECORDS SUMMARY | 2025-01-31 08:14 | XMS_ITS | Encounter Summary ---
Author Organization [facility] Address [address] [place] [address] Phone Care Team Providers Care Boiler Installer Name Role Phone Valerie Grimaldo MD Primary Care Provider [phone] Cody Polk MD Unavailable Wen Nelson MD Unavailable José Miguel Alva MD Unavailable [phone] Drew Martínez MD Unavailable [phone] Lopez Nunez DO Unavailable [phone] Autumn Chapman OD Unavailable [phone] Alcon Camacho MD Unavailable [phone] Tess Brennan MD Unavailable [phone] Tee Moura MD Unavailable [phone] Michel Linda MD Unavailable Verena Crespo MD Unavailable [phone] Unknown, Notinfile Primary Care Provider Unavail able Julian Encarnacion MD Primary Care Provider Encounter Details Date Type Department Care Team (Late st Contact Info) Description 12/20/2016 Orders Only [facility] [address] [place] [address] Lisa Romano LPN Social History Tobacco Use Types Packs/Day Years Used Date Smoking Tobacco: Never Alcohol Use Standard Drinks/Week Comments No 0 (1 standard drink = 0.6 oz pur e alcohol) Comments Unknown Sex and Gender Information Value Date Recorded Sex Assigned at Not on file Legal Sex Female 11:50 PM DESIGN PROJECT MANAGER Gender Identity Not on file Sexual Orientation Not on file documented as of this encounter Plan of Treatment Not on file documented as of this encounter Visit Diagnoses Not on filedocumented in this encounter Care Teams Boiler Installer Relationship Specialty Start Date End Date Valerie Grimaldo MD PCP - General 09/27/16 03/16/20 Unknown, Notinfile PCP - General 03/17/20 11/21/20 Julian Encarnacion MD 2 [facility] [address] [place] [address] PCP - General Family Medicine 11/22/20 [place] [address] [facility] [address] [place] [address] Pulmonary Disease 02/27/17 Wen Nelson MD [address] [place] [address] Obstetrics and Gynecology 02/27/17 José Miguel Alva MD [address] [facility] [address] [place] [address] Gynecologic Oncology 02/27/17 Drew Martínez MD [address] [place] [address] Orthopedic Surgery 02/27/17 Lopez Nunez DO [address] [address] Consulting Physician Gastroenterology 04/25/17 Autumn Chapman OD [address] [place] [address] Optometry 04/28/17 [place] [address] [facility] [address] [place] [address] Consulting Physician Cardiology 09/07/17 Tess Brennan MD [address] [facility] [address] [address] Referring Physician Gastroenterology 09/25/17 Tee Moura MD [address] [address] Referring Physician Surgery 11/29/17 Michel Linda MD 2 [facility] [address] [address] Referring Physician General Surgery 03/11/19 Verena Crespo MD 2 [facility] [address] [address] Consulting Physician Nephrology 03/13/19 documented as of this encounter
--- OUTSIDE RECORDS SUMMARY | 2025-01-31 08:14 | XMS_ITS | Encounter Summary ---
Author Organization [facility] Address [address] [place] [address] Phone Care Team Providers Care Perforator Loader Name Role Phone Julian Encarnacion MD Primary Care Provider [phone] Travis Torrez MD Primary Care Provider [phone] Carolee Tay APRN, PLANER CHAIN OFFBEARER Unavailable Reason for Visit * Reason Comments Medication Refill Encounter Details Date Type Department Care Team (Late st Contact Info) Description 12/08/2020 Refill [facility] - [facility]tico[facility] #2 [place] [address] Julian Encarnacion MD #[address] [address] Medication Refill Social History Tobacco Use Types [...] st Contact Info) Description 08/15/2025 10:00 AM PUBLIC ADDRESS ANNOUNCER Office Visit [facility] - Cardiology [facility] [address] [place] [address] Carolee Tay APRN, PLANER CHAIN OFFBEARER [address] [place] [address] documented as of this encounter Visit Diagnoses Not on filedocumented in this encounter Additional Health Concerns Infection Onset Date Last Indicated Resolved Time COVID - 19 07/20/2024 07/20/2024 07/20/2024 3:10 AM PUBLIC ADDRESS ANNOUNCER Assessment Noted Time PHQ-9 Depression Total Score: 0 04/24/20 10:39 AM CDT documented as of this encounter Care Teams Perforator Loader Relationship Specialty Start Date End Date Julian Encarnacion MD [address] [address] PCP - General Family Medicine 03/28/20 04/23/22 Travis Torrez MD [address] [place] [address] PCP - General Family Medicine 05/21/22 Carolee Tay APRN, KIM [address] [place] [address] Nurse Practitioner Certified Nurse Practitioner 08/20/24 documented as of this encounter
--- OUTSIDE RECORDS SUMMARY | 2025-01-31 08:14 | XMS_ITS | Clinical Summary ---
Author Organization [facility] Address [address], [address] [address] Phone Care Team Providers Care Collar Folder Operator Name Role Phone Travis Torrez MD Primary Care Provider [phone] Carolee Tay APRN, MEDICAL STENOGRAPHER Unavailable Allergies Active Allergy Reactions Criticality Noted [...] mg by mouth every morning. 4 Active Active Problems Problem Noted Date Diagnosed [...] embolism 08/31/2017 12/20/2020 Chest pain 08/31/2017 07/20/2024 Immunizations Immunization Administration Dates Next Due Covid-19, Mrna, Lnp-s, PF, 1 00 mcg/0.5 mL Dose (Moderna) 10/25/2020,09/26/2020 Influenza Seasonal, Intrader mal, Preservative Free 04/26/2015,04/21/2014,04/05/2009 Influenza Vaccine 05/25/2019, 7,07/01/2016,2014,04/21/2014 Influenza Vaccine, Quadrivalent, PF 03/23/2020,1 Influenza, Injectable, Quadrivalent 07/01/2016 Influenza, Intradermal, Quad rivalent, Preservative Free 04/21/2018 Influenza, high-dose, trivalent, PF 11/11/2018,04/19/2017,07/01/2016,2014 Pneumococcal Vaccine - 13 Valent 03/17/2015 Pneumococcal [...] drink = 0.6 oz pur e alcohol) [facility] Utilities Answer Date Recorded In the past 12 months has e [employer], gas, oil, or water [employer] threatened to shut off services in your home? No 07/20/2024 Social Connection and Isolation Panel Answer Date Recorded In a typical week, how many times do you talk on the phone with family, friends, or neighbors? Patient declined 07/20/2024 How often do you get togethe r with friends or relatives? Patient declined 07/20/2024 How often do you attend synagogue or zoroastrianism serv ices? Patient declined 07/20/2024 Do you belong to any clubs o r organizations such as synagogue groups, unions, fraternal or athletic groups, or [...] Total Score - Questions 1-9 0 03/31 [facility] [place] of Occupat ional Health - Occupational Stress [...] any time in the past 12 [facility], were you homeless or living in a custodial (including now)? No 07/20/2024 Comments No Sex and Gender Information Value Date Recorded Sex Assigned at Not on file Legal Sex Female 7:37 PM CDT Gender Identity Not on file Sexual Orientation Not on file Last Filed Vital Signs Vital Sign Reading Time Taken Comments Blood Pressure 126/62 08/19/2024 3:01 PM RABIES INSPECTOR Pulse 81 08/19/2024 3:01 PM RABIES INSPECTOR Temperature 36.3 C (97.3 F) 08/19/2024 3:01 PM RABIES INSPECTOR Respiratory Rate 16 08/19/2024 3:01 PM RABIES INSPECTOR Oxygen Saturation 97% 08/19/2024 3:01 PM RABIES INSPECTOR Inhaled Oxygen Concentration - - Weight 105.2 kg (232 lb) 08/19/2024 3:01 PM RABIES INSPECTOR Height 157.5 cm (5' 2) 08/19/2024 3:01 PM RABIES INSPECTOR Body Mass Index 42.43 08/19/2024 3:01 PM RABIES INSPECTOR Plan of Treatment Upcoming Encounters Date Type Department Care Team (Late st Contact Info) Description 08/15/2025 10:00 AM RABIES INSPECTOR Office Visit [facility] - Cardiology - [place] [address] [place] [phone] Carolee Tay, SLIP CASTER, MEDICAL STENOGRAPHER [address] [place] [phone] Health Maintenance Due Date Last Done Comments Diabetes: Eye Exam 1950 Diabetes: Foot Exam 1950 Cologuard 1994 Colonoscopy 1994 Colorectal Cancer Screening 04/30/2021 Immunochemical Fecal Occult Blood 04/30/2021 04/30/2020, 09/23/2017 Td Immunization Every 10 Years (Adults With 1 Tdap) 06/24/2021 06/24/2011, 09/23/2008 SARS-COV-2 Immunization ( season) 2024 10/25/2020, 09/26/2020 DEXA Bone Density 08/06/2024 08/06/2022, 04/30/2018 Diabetes: Hemoglobin A1c 01/17/2025 025, 04/29/2023, 10/18/2020, Additional history exists Influenza Immunization (#1) 02/28/202504/30, 05/12/2023, 03/23/2020, Additional history exists Diabetes: Nephropathy Screening 07/19/2025 07/19/2024, 04/29/2023, 10/18/2020, Additional history exists DTaP/Tdap/Td Immunization Discontinued 06/24/2011, Pneumococcal Immunization (50+ years) Completed 03/17/2015, 03/07/2014 Pneumococcal Immunization Combined Discontinued 03/17/2015, 03/07/2014 Hepatitis C Virus (HCV) Screening Completed 02/25/2019 Mammogram Discontinued 08/06/2022, 03/01, 03/08/2019, Additional history exists Respiratory Syncytial Virus (RSV) Immunization (Adult) Completed 08/14/2023 Zoster Immunization Completed 03/23/2024, Hepatitis B Immunization Aged Out No longer eligible based on patient's age to complete this topic Human Papillomavirus (HPV) Immunization Aged Out No longer eligible based on patient's age to complete this topic Meningococcal Immunization (ACWY) Aged Out No longer eligible based on patient's age to complete this topic Rotavirus Immunization Aged Out No lo nger eligible based on patient's age to complete this topic Medical Devices Implanted Type Area Pneudraulic Systems Mechanic Device Identifier Shelf Expiration Date Model / Serial / Lot Stent Coronary Leta Xience Everolimus Eluting [id number] - [id number] Implanted:Qty: 1 on 04/23/2018 by [facility] IMPLANT N/A: Coronary [employer] 02/17/2019 [id number] / / [id number] Stent Coronary Leta Xience Everolimus Eluting [id number] - [id number] Implanted:Qty: 1 on 04/23/2018 by Joan Avalos MD at [facility] IMPLANT N/A: Coronary [employer] 01/15/2019 [id number] Procedures Procedure Name Priority Date/Time Associated Diagnosis Comments HEMOGLOBIN A1C W/ ESTIMATED GLUCOSE STAT 07/20/2024 5:18 AM RABIES INSPECTOR CMP (COMPREHENSIVE METABOLIC PANEL) STAT 07/19/2024 9:48 PM RABIES INSPECTOR DUY SCREENING BILATERAL DIGITAL W CAD W HARLEEN Routine 08/06/2022 3:00 PM RABIES INSPECTOR Encounter for screening mammogram for malignant neoplasm of breast Asymptomatic menopausal state DUY BONE DENSITOMETRY AXIAL SKELETON Routine 08/06/2022 2:30 PM RABIES INSPECTOR Encounter for screening mammogram for malignant neoplasm of breast Asymptomatic menopausal state STOOL, OCCULT BLOOD, DIAGNOSTIC, VIA GUAIAC STAT 04/30/2020 11:15 AM RABIES INSPECTOR HEPATITIS PANEL ACUTE (AHP) Routine 02/25/2019 3:42 AM CDT from Last 3 Months or Most Recently Relevant to Health Maintenance Results * (ABNORMAL) Hemoglobin A1C w/ Estimated Glucose (07/20/2024 5:18 AM RABIES INSPECTOR) HGB-A1C 6.3(H) 4.0 - 6.0 % 07/20/2024 5:57 AM RABIES INSPECTOR [facility] Est Average Glucose 134.1 mg/dL 07/20/2024 5:57 AM [facility] Blood Venipuncture / Unknown 07/20/2024 5:18 AM RABIES INSPECTOR 07/20/2024 5:37 AM RABIES INSPECTOR Narrative [facility] - 07/20/2024 5:57 AM RABIES INSPECTOR HEMOGLOBIN A1C: DIABETIC PATIENTS: WELL-CONTROLLED: 6.2 - 7.0 INTERMEDIATE WELL-CONTROLLED: 7.0 - 9.0 POORLY-CONTROLLED: >9.0 Specimens containing greater than 5% of Hemoglobin F may result in lower than expected % HbA1C results. us Elsa Nevarez SLIP CASTER, MEDICAL STENOGRAPHER CHEMISTRY ORDERABLES Final Result [facility] [address] [place] [address] * (ABNORMAL) CMP (Comprehensive Metabolic Panel) (07/19/2024 9:48 PM RABIES INSPECTOR) Pathologist [facility] SODIUM 140 136 - 145 mmol/L 07/19/2024 10:34 PM RABIES INSPECTOR [facility] POTASSIUM 4.3 3.5 - 5.1 mmol/L 07/19/2024 10:34 PM RABIES INSPECTOR [facility] CHLORIDE 108(H) 98 - 107 mmol/L 07/19/2024 10:34 PM [facility] CO2, VENOUS 23 22 - 30 mmol/L 07/19/2024 10:34 PM RABIES INSPECTOR [facility] ANION GAP 13.3 <18.0 mmol/L 07/19/2024 10:34 PM [facility] GLUCOSE 188(H) 70 - 99 mg/dL 07/19/2024 10:34 PM [facility] BUN 28(H) 10 - 20 mg/dL 07/19/2024 10:34 PM [facility] CREATININE, BLOOD 2.17(H) 0.60 - 1.00 mg/dL 07/19/2024 10:34 PM [facility] BUN/CREATININE RATIO 13 12 - 20 ratio 07/19/2024 10:34 PM [facility] TOTAL PROTEIN 7.3 6.0 - 8.0 g/dL 07/19/2024 10:34 PM [facility] ALBUMIN 3.7 3.5 - 5.0 g/dL 07/19/2024 10:34 PM [facility] A/G RATIO 1.0 1.0 - 2.2 07/19/2024 10:34 PM [facility] CALCIUM 10.1 8.7 - 10.5 mg/dL 07/19/2024 10:34 PM [facility] T BILI 0.5 0.2 - 1.2 mg/dL 07/19/2024 10:34 PM [facility] SGOT (AST) 17 6 - 42 U/L 07/19/2024 10:34 PM [facility] SGPT (ALT) 7 6 - 55 U/L 07/19/2024 10:34 PM [facility] ALKALINE PHOSPHATASE 93 40 - 150 U/L 07/19/2024 10:34 PM [facility] GFR, ESTIMATED 23(L) >=60 07/19/2024 10:34 PM [facility] Comment: Creatinine Clearance is the preferred criteria for selecting drug dose adjustments in renally impaired patients. The GFR is provided as additional pertinent clinical information. GFR is reported in mL/min/1.73 sq m. Calculation based on the Chronic Kidney Disease Epidemiology Collaboration (CKD- EPI) equation refit without adjustment for race. GFR, EST. 27(L) >=60 025 10:34 PM [facility] GFR, EST. NONAFRICAN 22(L) >=60 07/19/2024 10:34 PM RABIES INSPECTOR [facility] Blood Venipuncture / Unknown 07/19/2024 9:48 PM RABIES INSPECTOR 07/19/2024 10:08 PM RABIES INSPECTOR us Oswaldo Sue MD CHEMISTRY ORDERABLES Final Result [facility] [address] [place] [address] * DUY SCREENING BILATERAL DIGITAL W CAD W HALREEN (08/06/2022 3:00 PM RABIES INSPECTOR) Anatomical Region Laterality Modality breast Bilateral Mammography 08/06/2022 3:12 PM RABIES INSPECTOR Narrative 08/07/2022 3:59 PM RABIES INSPECTOR - DUY SCREENING BILATERAL DIGITAL W CAD [...] to exams dated: 03/28/2020, 09/02/2019, 03/08/2019, 01/01/2018 [facility], 10/30/2017, and 10/27/2017 [facility]. BREAST TISSUE:There are scattered fibroglandular densities [...] exam. Electronically signed by: Dafne urena/penrad:08/07/2022 11:22:27 Mold Machine Operator(s): SONI Lao)(Sergey), [facility] letter sent: Normal Exam Reading location: [place] BI-RADS: 2 Benign Procedure Note Dafne Cordero [...] to exams dated: 03/28/2020, 09/02/2019, 03/08/2019, 01/01/2018 [facility], 10/30/2017, and 10/27/2017 [facility]. BREAST TISSUE:There are scattered fibroglandular densities [...] exam. Electronically signed by: Dafne urena/penrad:08/07/2022 11:22:27 Mold Machine Operator(s): SONI Lao)(M), [facility] letter sent: Normal Exam Reading location: [place] BI-RADS: 2 Benign us Travis Torrez MD IMG MAMMO ORDERABLES Final Resu lt * [facility] BONE DENSITOMETRY AXIAL SKELETON (08/06/2022 2:30 PM RABIES INSPECTOR) Anatomical Region Laterality Modality BODY N/A Computed Radiogr aphy 08/07/2022 6:48 AM RABIES INSPECTOR Impressions 08/07/2022 6:51 AM RABIES INSPECTOR IMPRESSION: Low bone mass REFERENCE: Bone mineral [...] of Osteoporosis (http://www.nof.org/professionals/clinical-guidelines) Narrative 08/07/2022 6:51 AM RABIES INSPECTOR EXAM DESCRIPTION: [facility] BONE DENSITOMETRY AXIAL SKELETON REASON FOR STUDY: 72 y/o year old F with given history of screening. Pneudraulic Systems Mechanic/Model: [employer] (S/N [id number]) CLINICAL INFORMATION: Current height: 62 inches Maximum [...] Brinda Neal M.D. TW: TW Report ID: [id number] Reading Location: [id number] Procedure Note Brinda Neal MD - 08/07/2022 EXAM DESCRIPTION: DUY BONE DENSITOMETRY AXIAL SKELETON REASON FOR STUDY: 72 y/o year old F with given history of screening. Pneudraulic Systems Mechanic/Model: Appsfire (S/N [id number]) CLINICAL INFORMATION: Current height: 62 inches Maximum [...] Electronically signed by Brinda Neal M.D. TW: Report ID: [id number] Reading Location: [id number] IMPRESSION: Low bone mass REFERENCE: Bone mineral [...] Occult Blood - Diagnostic (04/30/2020 11:15 AM RABIES INSPECTOR) [facility] OCCULT BLOOD DIAG Positive(A ) Negative 04/30/2020 11:53 AM RABIES INSPECTOR [facility] Stool Non-Phlebotomy Collection / Unknown 04/30/2020 11:15 AM RABIES INSPECTOR 04/30/2020 11:41 AM RABIES INSPECTOR Leland Rowan MD BODY FLUIDS & STOOLS ORDERABLES Final Result [facility] [address] [place] [address] * Hepatitis Panel Acute (AHP)-BELÉN (02/25/2019 3:42 AM CDT) [facility] HEPATITIS A IGM ANTIBODY NON DETECTED NON DETECTED 02/25/2019 3:20 PM CDT [facility] Comment: IGM Antibodies to HAV not detected. Does not exclude early acute or recovered HAV infection. HEP B CORE AB (IGM) NON DETECTED NON DETECTED 02/25/2019 3:20 PM CDT [facility] Comment: IGM anti-HBC not detected. Does not exclude the possibility of exposure to or infection with HBV. HEPATITIS B SURFACE ANTIGEN NON DETECTED NON DETECTED 02/25/2019 3:20 PM CDT [facility] Comment: A nonreactive test result does [...] 0.12 <1 S/CO 02/25/2019 3:20 PM CDT [facility] Comment: Signal/Cutoff ratio < 0.79 is Nondetected Signal/Cutoff ratio 0.80-0.99 is Grayzone Signal/Cutoff ratio > 0.99 is Detected Supplemental assays are recommended if signal/cutoff ratio is >/=1.00. Signal/cutoff ratio result >/= 5.00 is 97% predictive of positivity for recombinant immunoblot assay (RIBA) and will be reported to the [place] Department of Public Health as required. Blood specimen (specimen) Butterfly Puncture / Unknown 02/25/2019 3:42 AM CDT 02/25/2019 3:42 AM CDT us Verena Crespo MD HEMATOLOGY ORDERABLES F inal Result [facility] [address] [place] [address], from Last 3 Months or Most Recently Relevant to Health Maintenance Insurance [facility] Advance Directives Documents on File Type Date Recorded Patient Case Resolution Specialist Expl anation Advance Care Planning Discussion 05/10/2020 [...] measures to stabilize the patient. Care Teams Collar Folder Operator Relationship Specialty Start Date End Date Travis Torrez MD [address] [place] [address] PCP - General Family Medicine 05/21/22 Carolee Tay APRN, MEDICAL STENOGRAPHER [address] [place] [address] Nurse Practitioner Certified Nurse Practitioner 08/20/24
--- OUTSIDE RECORDS SUMMARY | 2025-01-31 08:14 | XMS_ITS | Encounter Summary ---
Author Organization [facility] Address [address] [place] [address] Phone Care Team Providers Care Zigzagger Name Role Phone Valerie Grimaldo MD Primary Care Provider + [phone] Cody Polk MD Unavailable Wen Nelson MD Unavailable [phone] José Miguel Alva MD Unavailable [phone] Drew Martínez MD Unavailable [phone] Lopez Nunez DO Unavailable [phone] Autumn Chapman OD Unavailable [phone] Alcon Camacho MD Unavailable [phone] Tess Brennan MD Unavailable [phone] Tee Moura MD Unavailable [phone] Michel Linda MD Unavailable Verena Crespo MD Unavailable [phone] Unknown, Notinfile Primary Care Provider Unavail able Julian Encarnacion MD Primary Care Provider Encounter Details Date Type Department Care Team (Late st Contact Info) Description 09/05/2017 Orders Only [facility] [address] [place] [address] Valerie Grimaldo MD [address] [place] [address] Social History Tobacco Use Types Packs/Day Years Used Date Smoking Tobacco: Never Smokeless Tobacco: Never Alcohol Use Standard Drinks/Week Comments No 0 (1 standard drink = 0.6 oz pur e alcohol) Comments No Sex and Gender Information Value Date Recorded Sex Assigned at Not on file Legal Sex Female 11:50 PM STAPLE SHEAR OPERATOR Gender Identity Not on file Sexual Orientation Not on file documented as of this encounter Plan of Treatment Not on file documented as of this encounter Procedures Procedure Name Priority Date/Time Associated Diagnosis Comments SCAN - RADIOLOGY/IMAGING 09/05/2017 10:47 AM STAPLE SHEAR OPERATOR documented in this encounter Results * SCAN - RADIOLOGY/IMAGING (09/05/2017 10:47 AM STAPLE SHEAR OPERATOR) Anatomical Region Laterality Modality Other Valerie Grimaldo MD Final Resu lt documented in this encounter Visit Diagnoses Not on filedocumented in this encounter Care Teams Zigzagger Relationship Specialty Start Date End Date Valerie Grimaldo MD PCP - General 09/27/16 03/16/20 Unknown, Notinfile PCP - General 03/17/20 11/21/20 Julian Encarnacion MD [address] [address] [place] [address] PCP - General Family Medicine 11/22/20 [place] [address] [facility] [address] [place] [address] Pulmonary Disease 02/27/17 Wen Nelson MD [address] [place] [address] Obstetrics and Gynecology 02/27/17 José Miguel Alva MD [address] [facility] [address] [place], [place] [id number] Gynecologic Oncology 02/27/17 Drew Martínez MD [address] [place] [address] Orthopedic Surgery 02/27/17 Lopez Nunez DO [address] [place] [address] Consulting Physician Gastroenterology 04/25/17 Autumn Chapman OD [address] [place] [address] Optometry 04/28/17 [place] [address] [facility] [address] [place] [address] Consulting Physician Cardiology 09/07/17 Tess Brennan MD [address] [facility] [address] [address] Referring Physician Gastroenterology 09/25/17 Tee Moura MD 2 [facility] [address] [address] Referring Physician Surgery 11/29/17 Michel Linda MD 2 [facility] [address] [address] Referring Physician General Surgery 03/11/19 Verena Crespo MD [address] [facility] [address] [address] Consulting Physician Nephrology 03/13/19 documented as of this encounter
--- OUTSIDE RECORDS SUMMARY | 2025-01-31 08:14 | XMS_ITS | Encounter Summary ---
Author Organization [facility] Address [address] [place] [address] Phone Care Team Providers Care Belt Glass Sander Name Role Phone Julian Encarnacion MD Primary Care Provider Travis Torrez MD Primary Care Provider [phone] Carolee Tay APRN, COAL WASHER Unavailable Reason for Visit * Reason Comments Medication Refill Encounter Details Date Type Department Care Team (Late st Contact Info) Description 11/14/2020 Refill [facility] [address] [place] [address] Julian Encarnacion MD [address] [address] Medication Refill Social History Tobacco Use Types [...] Dept 10/18/20 Office Visit Julian Encarnacion MD [facility] [place] 07/20/20 Office Visit [facility] [place] 06/08/20 Office Visit Julian Encarnacion MD [facility] [place] Showing recent visits within past 182 days and meeting all other requirements Future Appointments Date Type Provider Dept 01/17/21 Appointment Julian Encarnacion MD [facility] [place] Showing future appointments within next 90 days and meeting all other requirements Passed - HgA1C on record in past 6 months HGB-A1C Date Value Ref Range Status 10/18/2020 7.0 % Final documented in this encounter Plan of Treatment Upcoming Encounters Date Type Department Care Team (Late st Contact Info) Description 08/15/2025 10:00 AM FACILITY MAINTENANCE TECHNICIAN Office Visit [facility] - Cardiology - [place] [address] [place] [address] Carolee Tay APRN, COAL WASHER [address] [place] [address] documented as of this encounter Visit Diagnoses Not on filedocumented in this encounter Additional Health Concerns Infection Onset Date Last Indicated Resolved Time COVID - 19 07/20/2024 07/20/2024 07/20/2024 3:10 AM FACILITY MAINTENANCE TECHNICIAN Assessment Noted Time PHQ-9 Depression Total Score: 0 04/24/20 20 10:39 AM CDT documented as of this encounter Care Teams Belt Glass Sander Relationship Specialty Start Date End Date Julian Encarnacion MD [address] [address] PCP - General Family Medicine 03/28/20 04/23/22 Travis Torrez MD [address] [place] [address] PCP - General Family Medicine 05/21/22 Carolee Tay APRN, COAL WASHER [address] [place] [address] Nurse Practitioner Certified Nurse Practitioner 08/20/24 documented as of this encounter
--- OUTSIDE RECORDS SUMMARY | 2025-01-31 08:14 | XMS_ITS | Encounter Summary ---
Author Organization [facility] Address [address] [place] [address] Phone Care Team Providers Care International Controller Name Role Phone Julian Encarnacion MD Primary Care Provider [phone] Travis Torrez MD Primary Care Provider Carolee Tay APRN, EMPLOYMENT SERVICE SPECIALIST Unavailable Reason for Visit * Reason Comments Medication Refill Encounter Details Date Type Department Care Team (Late st Contact Info) Description 05/17/2021 Refill [facility] [address] [place] [address] Julian Encarnacion MD [address] [address] Medication Refill Social History Tobacco Use Types [...] 05/17/2021 10:12 AM CST Prescription pending signature FACER * Telephone Encounter - Dominique Conway RN [...] Visits 2 months ago Arthralgia, unspecified joint [facility] - Julian Hines MD 7 months ago Type 2 diabetes mellitus without complication, with long-term current use of insulin ([facility]) [facility] Julian Graham MD 10 months ago Type 2 diabetes mellitus without complication, with long-term current use of insulin ([facility]) [facility] Julian Graham MD 11 months ago Hematemesis, presence of nausea not specified [facility] Julian Graham MD 1 year ago Hematemesis, presence of nausea not specified [facility] Julian Graham MD Upcoming Appointments SERVICE TRAINER - Recent and Past Visits Recent Visits [...] [place] 02/18/20 Office Visit Aletha Anand PAC [facility] [place] Showing recent visits within past 460 days with a meds authorizing provider and meeting all other requirements Future Appointments No visits were found meeting these conditions. Showing future appointments within next 90 days with a meds authorizing provider and meeting all other requirements FACER documented in this encounter Plan of Treatment Upcoming Encounters Date Type Department Care Team (Late st Contact Info) Description 08/15/2025 10:00 AM BACK FACER [facility] Visit [facility] Card[facility] [address] [place] [address] Carolee Tay APRN, EMPLOYMENT SERVICE SPECIALIST [address] [place] [address] documented as of this encounter Visit Diagnoses Diagnosis Arthralgia, unspecified joint documented in this encounter Additional Health Concerns Infection Onset Date Last Indicated Resolved Time COVID - 19 07/20/2024 07/20/2024 07/20/2024 3:10 AM BACK FACER Assessment Noted Time PHQ-9 Depression Total Score: 0 04/24/20 20 10:39 AM CDT documented as of this encounter Care Teams International Controller Relationship Specialty Start Date End Date Julian Encarnacion MD [address] [address] PCP - General Family Medicine 03/28/20 04/23/22 Travis Torrez MD [address] [place] [address] PCP - General Family Medicine 05/21/22 Carolee Tay APRN, EMPLOYMENT SERVICE SPECIALIST [address] [place] [address] Nurse Practitioner Certified Nurse Practitioner 08/20/24 documented as of this encounter
--- OUTSIDE RECORDS SUMMARY | 2025-01-31 08:14 | XMS_ITS | Encounter Summary ---
Author Organization [facility] Address [address] [place] [address] Phone Care Team Providers Care Sales Agent Casualty Insurance Name Role Phone Valerie Grimaldo MD Primary Care Provider + [phone] Cody Polk MD Unavailable +[phone] Wen Nelson MD Unavailable José Miguel Alva MD Unavailable +[phone] Drew Martínez MD Unavailable +[phone] Lopez Nunez DO Unavailable [phone] Autumn Chapman OD Unavailable +[phone] Alcon Camacho MD Unavailable +[phone] Tess Brennan MD Unavailable +[phone] Tee Moura MD Unavailable +[phone] Michel Linda MD Unavailable Verena Crespo MD Unavailable +[phone] Unknown, Notinfile Primary Care Provider Unavail able Julian Encarnacion MD Primary Care Provider Encounter Details Date Type Department Care Team (Late st Contact Info) Description 11/07/2017 Orders Only [facility] Provider, MD Tayler [address] [place] [address] Social History Tobacco Use Types Packs/Day Years Used Date Smoking Tobacco: Never Smokeless Tobacco: Never Alcohol Use Standard Drinks/Week Comments No 0 (1 standard drink = 0.6 oz pur e alcohol) Comments No Sex and Gender Information Value Date Recorded Sex Assigned at Not on file Legal Sex Female 11:50 PM AVID EDITOR Gender Identity Not on file Sexual Orientation [...] filedocumented in this encounter Care Teams Sales Agent Casualty Insurance Relationship Specialty Start Date End Date Valerie Grimaldo MD PCP - General 09/27/16 03/16/20 Unknown, Notinfile PCP - General 03/17/20 11/21/20 Julian Encarnacion MD [address] [address] PCP - General Family Medicine 11/22/20 [place] [address] [facility] [address] [place] [address] Pulmonary Disease 02/27/17 Wen Nelson MD [address] [place] [address] Obstetrics and Gynecology 02/27/17 José Miguel Alva MD [address] [facility] [address] [place] [address] Gynecologic Oncology 02/27/17 Drew Martínez MD [address] [place] [address] Orthopedic Surgery 02/27/17 Lopez Nunez DO [address] [place] [address] Consulting Physician Gastroenterology 04/25/17 Autumn Chapman OD [address] [place] [address] Optometry 04/28/17 [place] [address] [facility] [address] [place] [address] Consulting Physician Cardiology 09/07/17 Tess Brennan MD [address] [address] Referring Physician Gastroenterology 09/25/17 Tee Moura MD [address] [address] Referring Physician Surgery 11/29/17 Michel Linda MD [address] [address] Referring Physician General Surgery 03/11/19 Verena Crespo MD 2 [facility] [address] [place] [address] Consulting Physician Nephrology 03/13/19 documented as of this encounter
--- OUTSIDE RECORDS SUMMARY | 2025-01-31 08:14 | XMS_ITS | Encounter Summary ---
Author Organization [facility] Address [address] [place] [address] Phone Care Team Providers Care Rn Telephone Triage Name Role Phone Valerie Grimaldo MD Primary Care Provider + [phone] Cody Polk MD Unavailable +[phone] Wen Nelson MD Unavailable José Miguel Alva MD Unavailable +[phone] Drew Martínez MD Unavailable +[phone] Lopez Nunez DO Unavailable [phone] Autumn Chapman OD Unavailable +[phone] Alcon Camacho MD Unavailable +[phone] Tess Brennan MD Unavailable +[phone] Tee Moura MD Unavailable +[phone] Michel Linda MD Unavailable Verena Crespo MD Unavailable +[phone] Unknown, Notinfile Primary Care Provider Unavail able Julian Encarnacion MD Primary Care Provider Encounter Details Date Type Department Care Team (Late st Contact Info) Description 09/05/2017 Orders Only [facility] Provider, MD Tayler [address] [place] [address] Social History Tobacco Use Types Packs/Day Years Used Date Smoking Tobacco: Never Smokeless Tobacco: Never Alcohol Use Standard Drinks/Week Comments No 0 (1 standard drink = 0.6 oz pur e alcohol) Comments No Sex and Gender Information Value Date Recorded Sex Assigned at Not on file Legal Sex Female 11:50 PM CENTRAL COMMUNICATIONS SPECIALIST Gender Identity Not on file Sexual Orientation Not on file documented as of this encounter Plan of Treatment Not on file documented as of this encounter Procedures Procedure Name Priority Date/Time Associated Diagnosis Comments DISCHARGE LABORATORY CUMULATIVE REPORT 09/05/2017 12:00 AM CENTRAL COMMUNICATIONS SPECIALIST documented in this encounter Results * DISCHARGE LABORATORY CUMULATIVE REPORT (09/05/2017 12:00 AM CENTRAL COMMUNICATIONS SPECIALIST) Narrative 09/05/2017 12:00 AM CENTRAL COMMUNICATIONS SPECIALIST Ordered by an unspecified provider. us Historical Provider LAB BLOOD ORDERABLES Soledad l Result documented in this encounter Visit Diagnoses Not on filedocumented in this encounter Care Teams Rn Telephone Triage Relationship Specialty Start Date End Date Valerie Grimaldo MD PCP - General 09/27/16 03/16/20 Unknown, Notinfile PCP - General 03/17/20 11/21/20 Julian Encarnacion MD 2 [facility] [address] [place] [address] PCP - General Family Medicine 11/22/20 [place] [address] [facility] [address] [place] [address] Pulmonary Disease 02/27/17 Wen Nelson MD [address] [place] [address] Obstetrics and Gynecology 02/27/17 José Miguel Alva MD [address] [facility] [address] [place] [address] Gynecologic Oncology 02/27/17 Drew Martínez MD [address] [facility] [address] [place] [address] Orthopedic Surgery 02/27/17 Lopez Nunez DO [address] [facility] [address] [place] [address] Consulting Physician Gastroenterology 04/25/17 Autumn Chapman OD [address] [place] [address] Optometry 04/28/17 [place] [address] [facility] [address] [place] [address] Consulting Physician Cardiology 09/07/17 Tess Brennan MD [address] [address] [address] Referring Physician Gastroenterology 09/25/17 Tee Moura MD [address] [address] [address] Referring Physician Surgery 11/29/17 Michel Linda MD [address] [address] [address] Referring Physician General Surgery 03/11/19 Verena Crespo MD [address] [address] [address] Consulting Physician Nephrology 03/13/19 documented as of this encounter
--- OUTSIDE RECORDS SUMMARY | 2025-01-31 08:14 | XMS_ITS | Encounter Summary ---
Author Organization [facility] Address [address] [place] [address] Phone Care Team Providers Care Search Consultant Name Role Phone Julian Encarnacion MD Primary Care Provider Travis Torrez MD Primary Care Provider [phone] Carolee Tay APRN, PROPERTY UTILIZATION OFFICER Unavailable Reason for Visit * Reason Comments Medication Refill Encounter Details Date Type Department Care Team (Late st Contact Info) Description 12/04/2020 Refill [facility] - [facility] [address] [place] [address] Julian Encarnacion MD #[address] [address] Medication Refill Social History Tobacco Use Types [...] long-term current use of insulin ([facility]) [facility] Julian Hines MD 4 months ago Type 2 diabetes mellitus without complication, with long-term current use of insulin ([facility]) [facility] Julian Graham MD 6 months ago Hematemesis, presence of nausea not specified [facility] Julian Graham MD 6 months ago Hematemesis, presence of nausea not specified [facility] Julian Graham MD 8 months ago Preop cardiovascular exam [facility] Julian Graham MD Upcoming Appointments Future Appointments In 1 month Julian Encarnacion MD [facility] [place] [facility] In 2 months Cristina Garcia APN, PROPERTY UTILIZATION OFFICER [facility] Oncology Services, [facility] PSYCH TECH - Recent and Past Visits Recent Visits Date Type Provider Dept 10/18/20 Office Visit Julian Encarnacion MD [facility] 07/20/20 Office Visit Julian Encarnacion MD [facility] 06/08/20 Office Visit Julian Encarnacion MD [facility] 05/10/20 Office Visit Julian Encarnacion MD [facility] 03/23/20 Office Visit Julian Encarnacion MD [facility] [place] 02/18/20 Office Visit [facility] Showing recent visits within past 460 days with a meds authorizing provider and meeting all other requirements Future Appointments Date Type Provider Dept 01/17/21 Appointment Julian Encarnacion MD [facility] [place] Showing future appointments within next 90 days with a meds authorizing provider and meeting all other requirements documented in this encounter Plan of Treatment Upcoming Encounters Date Type Department Care Team (Late st Contact Info) Description 08/15/2025 10:00 AM CHAIN FORMING MACHINE OPERATOR Office Visit [facility] - [facility]iology - [place] [address] [place] [address] Carolee Tay APRN, PROPERTY UTILIZATION OFFICER [address] [place] [address] documented as of this encounter Visit Diagnoses Not on filedocumented in this encounter Additional Health Concerns Infection Onset Date Last Indicated Resolved Time COVID - 19 07/20/2024 07/20/2024 07/20/2024 3:10 AM CHAIN FORMING MACHINE OPERATOR Assessment Noted Time PHQ-9 Depression Total Score: 0 04/24/20 20 10:39 AM CDT documented as of this encounter Care Teams Search Consultant Relationship Specialty Start Date End Date Julian Encarnacion MD #[address] [address] PCP - General Family Medicine 03/28/20 04/23/22 Travis Torrez MD [address] [place] [address] PCP - General Family Medicine 05/21/22 Carolee Tay APRN, PROPERTY UTILIZATION OFFICER [address] [place] [address] Nurse Practitioner Certified Nurse Practitioner 08/20/24 documented as of this encounter
--- OUTSIDE RECORDS SUMMARY | 2025-01-31 08:14 | XMS_ITS | Encounter Summary ---
Author Organization [facility] Address [address] [place] [address] Phone Care Team Providers Care Supervisor Publications Production Name Role Phone Valerie Grimaldo MD Primary Care Provider + [phone] Cody Polk MD Unavailable +[phone] Wen Nelson MD Unavailable José Miguel Alva MD Unavailable +[phone] Drew Martínez MD Unavailable +[phone] Lopez Nunez DO Unavailable [phone] Autumn Chapman OD Unavailable +[phone] Alcon Camacho MD Unavailable +[phone] Tess Brennan MD Unavailable [phone] Tee Moura MD Unavailable [phone] Michel Linda MD Unavailable Verena Crespo MD Unavailable [phone] Unknown, Notinfile Primary Care Provider Unavail able Julian Encarnacion MD Primary Care Provider Encounter Details Date Type Department Care Team (Late st Contact Info) Description 11/26/2017 Orders Only [facility] Provider, MD Tayler [address] [place] [address] Social History Tobacco Use Types Packs/Day Years Used Date Smoking Tobacco: Never Smokeless Tobacco: Never Alcohol Use Standard Drinks/Week Comments No 0 (1 standard drink = 0.6 oz pur e alcohol) Comments No Sex and Gender Information Value Date Recorded Sex Assigned at Not on file Legal Sex Female 11:50 PM AWNING SPREADER Gender Identity Not on file Sexual Orientation [...] on filedocumented in this encounter Care Teams Supervisor Publications Production Relationship Specialty Start Date End Date Valerie Grimaldo MD PCP - General 09/27/16 03/16/20 Unknown, Notinfile PCP - General 03/17/20 11/21/20 Jluian Encarnacion MD [address] [address] PCP - General Family Medicine 11/22/20 [place] [address] [facility] [address] [place] [address] Pulmonary Disease 02/27/17 Wen Nelson MD [address] [place] [address] Obstetrics and Gynecology 02/27/17 José Miguel Alva MD [address] [facility] [address] [place] [address] Gynecologic Oncology 02/27/17 Drew Martínez MD [address] [place] [address] Orthopedic Surgery 02/27/17 Lopez Nunez DO [address] [place] [address] Consulting Physician Gastroenterology 04/25/17 Autumn Chapman OD [address] [place] [address] Optometry 04/28/17 [place] [address] [facility] [address] [place] [address] Consulting Physician Cardiology 09/07/17 Tess Brennan MD [address] [address] Referring Physician Gastroenterology 09/25/17 Tee Moura MD [address] [address] Referring Physician Surgery 11/29/17 Michel Linda MD [address] [address] Referring Physician General Surgery 03/11/19 Veerna Crespo MD 2 [facility] [address] [place] [address] Consulting Physician Nephrology 03/13/19 documented as of this encounter
--- OUTSIDE RECORDS SUMMARY | 2025-01-31 08:15 | XMS_ITS | Encounter Summary ---
Author Organization [facility] Address [address] [place] [address] Phone Care Team Providers Care Communication Engineer Name Role Phone Valerie Grimaldo MD Primary Care Provider + [phone] Cody Polk MD Unavailable +[phone] Wen Nelson MD Unavailable José Miguel Alva MD Unavailable +[phone] Drew Martínez MD Unavailable +[phone] Lopez Nunez DO Unavailable [phone] Autumn Chapman OD Unavailable +[phone] Alcon Camacho MD Unavailable +[phone] Tess Brennan MD Unavailable +[phone] Tee Moura MD Unavailable [phone] Michel Linda MD Unavailable Verena Crespo MD Unavailable +[phone] Unknown, Notinfile Primary Care Provider Unavail able Julian Encarnacion MD Primary Care Provider [phone] Encounter Details Date Type Department Care Team (Late st Contact Info) Description 09/15/2017 Orders Only [facility] Provider, MD Tayler [address] [place] [address] Social History Tobacco Use Types Packs/Day Years Used Date Smoking Tobacco: Never Smokeless Tobacco: Never Alcohol Use Standard Drinks/Week Comments No 0 (1 standard drink = 0.6 oz pur e alcohol) Comments No Sex and Gender Information Value Date Recorded Sex Assigned at Not on file Legal Sex Female 11:50 PM CLOTH CALENDER Gender Identity Not on file Sexual Orientation [...] on filedocumented in this encounter Care Teams Communication Engineer Relationship Specialty Start Date End Date Valerie Grimaldo MD PCP - General 09/27/16 03/16/20 Unknown, Notinfile PCP - General 03/17/20 11/21/20 Julian Encarnacion MD [address] [address] PCP - General Family Medicine 11/22/20 [place] [address] [facility] [address] [place] [address] Pulmonary Disease 02/27/17 Wen Nelson MD [address] [place] [address] Obstetrics and Gynecology 02/27/17 José Miguel Alva MD [address] [facility] [address] [place] [address] Gynecologic Oncology 02/27/17 Drew Martínez MD [address] [place] [address] Orthopedic Surgery 02/27/17 Lopez Nunez DO [address] [place] [address] Consulting Physician Gastroenterology 04/25/17 Autumn Chapman OD [address] [place] [address] Optometry 04/28/17 [place] [address] [facility] [address] [place] [address] Consulting Physician Cardiology 09/07/17 Tess Brennan MD 2 [facility] [address] [place] [address] Referring Physician Gastroenterology 09/25/17 Tee Moura MD [address] [address] Referring Physician Surgery 11/29/17 Michel Linda MD [address] [facility] [address] [address] Referring Physician General Surgery 03/11/19 Verena Crespo MD [address] [address] [address] Consulting Physician Nephrology 03/13/19 documented as of this encounter
--- OUTSIDE RECORDS SUMMARY | 2025-01-31 08:15 | XMS_ITS | Encounter Summary ---
Author Organization [facility] Address [address] [place] [address] Phone Care Team Providers Care Casino Cage Manager Name Role Phone Valerie Grimaldo MD Primary Care Provider + [phone] Cody Polk MD Unavailable +[phone] Wen Nelson MD Unavailable [phone] José Miguel Alva MD Unavailable +[phone] Drew Martínez MD Unavailable +[phone] Lopez Nunez DO Unavailable [phone] Autumn Chapman OD Unavailable +[phone] Alcon Camacho MD Unavailable +[phone] Tess Brennan MD Unavailable +[phone] Tee Moura MD Unavailable +[phone] Michel Linda MD Unavailable Verena Crespo MD Unavailable +[phone] Unknown, Notinfile Primary Care Provider Unavail able Julian Encarnacion MD Primary Care Provider [phone] Encounter Details Date Type Department Care Team (Late st Contact Info) Description 09/08/2017 Orders Only [facility] Provider, MD Tayler [address] [place] [address] Social History Tobacco Use Types Packs/Day Years Used Date Smoking Tobacco: Never Smokeless Tobacco: Never Alcohol Use Standard Drinks/Week Comments No 0 (1 standard drink = 0.6 oz pur e alcohol) Comments No Sex and Gender Information Value Date Recorded Sex Assigned at Not on file Legal Sex Female 11:50 PM FILM BOOKER Gender Identity Not on file Sexual Orientation [...] on filedocumented in this encounter Care Teams Casino Cage Manager Relationship Specialty Start Date End Date Valerie Grimaldo MD PCP - General 09/27/16 03/16/20 Unknown, Notinfile PCP - General 03/17/20 11/21/20 Julian Encarnacion MD 2 [facility] [address] [place] [address] PCP - General Family Medicine 11/22/20 [place] [address] [facility] [address] [place] [address] Pulmonary Disease 02/27/17 Wen Nelson MD [address] [place] [address] Obstetrics and Gynecology 02/27/17 José Miguel Alva MD [address] [facility] [address] [place] [address] Gynecologic Oncology 02/27/17 Drew Martínez MD [address] [place] [address] Orthopedic Surgery 02/27/17 Lopez Nunez DO [address] [place] [address] Consulting Physician Gastroenterology 04/25/17 Autumn Chapman OD [address] [place] [address] Optometry 04/28/17 [place] [address] [facility] [address] [place] [address] Consulting Physician Cardiology 09/07/17 Tess Brennan MD [address] [address] [address] Referring Physician Gastroenterology 09/25/17 Tee Moura MD [address] [address] [address] Referring Physician Surgery 11/29/17 Michel Linda MD [address] [facility] [address] [address] Referring Physician General Surgery 03/11/19 Verena Crespo MD [address] [address] [address] Consulting Physician Nephrology 03/13/19 documented as of this encounter
--- OUTSIDE RECORDS SUMMARY | 2025-01-31 08:15 | XMS_ITS | Encounter Summary ---
Author Organization [facility] Address [address] [place] [address] Phone Care Team Providers Care Wash Rack Operator Name Role Phone Valerie Grimaldo MD Primary Care Provider + [phone] Cody Polk MD Unavailable +[phone] Wen Nelson MD Unavailable José Miguel Alva MD Unavailable +[phone] Drew Martínez MD Unavailable +[phone] Lopez Nunez DO Unavailable [phone] Autumn Chapman OD Unavailable +[phone] Alcon Camacho MD Unavailable +[phone] Tess Brennan MD Unavailable +[phone] Tee Moura MD Unavailable +[phone] Michel Linda MD Unavailable Verena Crespo MD Unavailable [phone] Unknown, Notinfile Primary Care Provider Unavail able Julian Encarnacion MD Primary Care Provider Encounter Details Date Type Department Care Team (Late st Contact Info) Description 10/01/[address] [facility] Provider, MD Tayler [address] [place] [address] Social History Tobacco Use Types Packs/Day Years Used Date Smoking Tobacco: Never Smokeless Tobacco: Never Alcohol Use Standard Drinks/Week Comments No 0 (1 standard drink = 0.6 oz pur e alcohol) Comments No Sex and Gender Information Value Date Recorded Sex Assigned at Not on file Legal Sex Female 11:50 PM MATERIAL RECLAIMER Gender Identity Not on file Sexual Orientation [...] on filedocumented in this encounter Care Teams Wash Rack Operator Relationship Specialty Start Date End Date Valerie Grimaldo MD PCP - General 09/27/16 03/16/20 Unknown, Notinfile PCP - General 03/17/20 11/21/20 Julian Encarnacion MD [address] [address] PCP - General Family Medicine 11/22/20 [place] [address] [facility] [address] [place] [address] Pulmonary Disease 02/27/17 Wen Nelson MD [address] [place] [address] Obstetrics and Gynecology 02/27/17 José Miguel Alva MD [address] [facility] [address] [place] [address] Gynecologic Oncology 02/27/17 Drew Martínez MD [address] [place] [address] Orthopedic Surgery 02/27/17 Lopez Nunez DO [address] [place] [address] Consulting Physician Gastroenterology 04/25/17 Autumn Chapman OD [address] [place] [address] Optometry 04/28/17 [place] [address] [facility] [address] [place] [address] Consulting Physician Cardiology 09/07/17 Tess Brennan MD [address] [address] Referring Physician Gastroenterology 09/25/17 Tee Moura MD [address] [address] Referring Physician Surgery 11/29/17 Michel Linda MD [address] [address] Referring Physician General Surgery 03/11/19 Verena Crespo MD [address] [facility] [address] [place] [address] Consulting Physician Nephrology 03/13/19 documented as of this encounter
[2025-01-31 19:09] LABS: Hematocrit 43.0 % (37.0-47.0); Hemoglobin 12.6 g/dL (12.0-15.0); Mean Corpuscular HGB Conc 29.3 g/dl (32-36); Mean Corpuscular Hemoglobin 26.5 pg (26-34); Mean Corpuscular Volume 90.5 fl (80-100); Platelet Count Result 279 k/mm3 (150-375); Red Blood Count 4.75 M/mm3 (4.2-5.4); White Blood Count 10.5 K/mm3 (4.5-10.0)
[2025-01-31 19:15] LABS: Albumin Level 3.8 g/dL (3.5-5.1); Anion Gap 6 mmol/L (4-12); Blood Urea Nitrogen 15 mg/dL (7-17); Calcium 10.1 mg/dL (8.4-10.2); Carbon Dioxide 28 mmol/L (22-30); Chloride 107 mmol/L (98-107); Estimated Glomerular Filt Rate 23; Glucose 94 mg/dL (65-110); Potassium 4.1 mmol/L (3.4-5.0); Sodium 141 mmol/L (137-145)
[2025-01-31 19:24] LABS: Total Protein Urine Random 177 mg/dL; Ur Ttl Prot Creatinine Ratio 2.97 mg/mg (0-0.20)
[2025-01-31 19:26] LABS: Parathyroid Intact 35.2 pg/mL (14.5-75.2)
== END 2025-01-31 08:12 | disposition home or self-care (01) ==
LOC: ANHBWCLAB 08:12
PROVIDERS: PCP Family Medicine; Visit Provider Internal Medicine Nephrology
DX: N18.31 Chronic kidney disease, stage 3a (principal); E83.52 Hypercalcemia
CPT/HCPCS: 36415; 80069; 82306; 82570; 83970; 84156; 85027

== ENCOUNTER 2025-02-16 10:59 | Outpatient (CLI) | payer MEDICARE, SELFPAY ==
--- OUTSIDE RECORDS SUMMARY | 2025-02-16 11:38 | XMS_ITS | Encounter Summary ---
Author Organization [facility] Address [address] [place] [address] Phone Care Team Providers Care Marriage And Family Teacher Name Role Phone Julian Encarnacion MD Primary Care Provider [phone] Travis Torrez MD Primary Care Provider [phone] Carolee Tay APRN, SYSTEM DEVELOPMENT MANAGER Unavailable Reason for Visit * Reason Comments Medication Refill Encounter Details Date Type Department Care Team (Late st Contact Info) Description 01/12/2021 Refill [facility] - [facility] [address] [place] [address] Julian Encarnacion MD #[address] [address] Medication Refill Social History Tobacco Use Types [...] complication, with long-term current use of insulin ([facility]) [facility] Family [facility] - Julian Hines MD 5 months ago Type 2 diabetes mellitus without complication, with long-term current use of insulin ([facility]) [facility] Family [facility] - Julian Hines MD 7 months ago Hematemesis, presence of nausea not specified [facility] Julian Hines MD 8 months ago Hematemesis, presence of nausea not specified [facility] Julian Hines MD 9 months ago Preop cardiovascular exam [facility] Family Medicine Julian Graham MD Upcoming Appointments Future Appointments In 5 days Julian Encarnacion MD [facility] Family [facility], [facility] In 1 month Cristina Garcia APN, KIM [facility] Oncology Services, [facility] ENGINE SERVICE REPAIRER - Recent and Past Visits Recent Visits Date Type Provider Dept 10/18/20 Office Visit Julian Encarnacion MD [facility] [place] 07/20/20 Office Visit Julian Encarnacion MD [facility] [place] 06/08/20 Office Visit [facility] 05/10/20 Office Visit Julian Encarnacion MD [facility] 03/23/20 Office Visit Julian Encarnacion MD [facility] 02/18/20 Office Visit [facility] Showing recent visits within past 460 days with a meds authorizing provider and meeting all other requirements Future Appointments Date Type Provider Dept 01/17/21 Appointment Julian Encarnacion MD [facility] Showing future appointments within next 90 days with a meds authorizing provider and meeting all other requirements documented in this encounter Plan of Treatment Upcoming Encounters Date Type Department Care Team (Late st Contact Info) Description 08/15/2025 10:00 AM ADJUSTMENT EXAMINER Office Visit [facility] - [facility]iology - [place] [address] [place] [address] Carolee Tay APRN, KIM [address] [place] [address] documented as of this encounter Visit Diagnoses Not on filedocumented in this encounter Additional Health Concerns Infection Onset Date Last Indicated Resolved Time COVID - 19 07/20/2024 07/20/2024 07/20/2024 3:10 AM ADJUSTMENT EXAMINER Assessment Noted Time PHQ-9 Depression Total Score: 0 04/24/20 10:39 AM CDT documented as of this encounter Care Teams Marriage And Family Teacher Relationship Specialty Start Date End Date Julian Encarnacion MD #[address] [address] PCP - General Family Medicine 03/28/20 04/23/22 Travis Torrez MD #[address] [address] PCP - General Family Medicine 05/21/22 Carolee Tay APRN, SYSTEM DEVELOPMENT MANAGER [address] [place] [address] Nurse Practitioner Certified Nurse Practitioner 08/20/24 documented as of this encounter
--- OUTSIDE RECORDS SUMMARY | 2025-02-16 11:38 | XMS_ITS | Encounter Summary ---
Author Organization [facility] Address [address] [place] [address] Phone Care Team Providers Care Software Engineer Advisor Name Role Phone Julian Encarnacion MD Primary Care Provider Travis Torrez MD Primary Care Provider Carolee Tay APRN, DRY MAN Unavailable Reason for Visit * Reason Comments Medication Refill Encounter Details Date Type Department Care Team (Late st Contact Info) Description 07/20/2021 Refill [facility] - [facility] Medicine [facility] [address]2 [place] [address] Julian Encarnacion MD #[address] [address] Medication Refill Social History Tobacco Use Types [...] (GLUCOPHAGE-XR) 500 MG TABLET SR 24 HR [[id number]] 1031 Status: Active Ordering user: Julian Encarnacion MD 11/15/20 103 Authorized by: Julian Encarnacion MD Frequency: ??11/15/20 - Until Discontinued Released by: Julian Encarnacion MD 11/15/20 103 [id number] L CONTAINER MAKER documented in this encounter Plan of Treatment Upcoming Encounters Date Type Department Care Team (Late st Contact Info) Description 08/15/2025 10:00 AM METAL CONTAINER MAKER Office Visit [facility] - Cardiology - [place] [address] [place] [address] Carolee Tay APRN, DRY MAN [address] [place] [address] documented as of this encounter Visit Diagnoses Not on filedocumented in this encounter Additional Health Concerns Infection Onset Date Last Indicated Resolved Time COVID - 19 07/20/2024 07/20/2024 07/20/2024 3:10 AM METAL CONTAINER MAKER Assessment Noted Time PHQ-9 Depression Total Score: 0 04/24/20 10:39 AM CDT documented as of this encounter Care Teams Software Engineer Advisor Relationship Specialty Start Date End Date Julian Encarnacion MD #[address] [address] PCP - General Family Medicine 03/28/20 04/23/22 Travis Torrez MD #[address] [address] PCP - General Family Medicine 05/21/22 Carolee aTy APRN, DRY MAN [address] [place] [address] Nurse Practitioner Certified Nurse Practitioner 08/20/24 documented as of this encounter
--- OUTSIDE RECORDS SUMMARY | 2025-02-16 11:38 | XMS_ITS | Encounter Summary ---
Author Organization [facility] Address [address] [place] [address] Phone Care Team Providers Care Clinical Manager Home Care Name Role Phone Julian Encarnacion MD Primary Care Provider Travis Torrez MD Primary Care Provider Carolee Tay APRN, RAILROAD CAR LETTERER Unavailable Reason for Visit * Reason Comments Medication Refill Encounter Details Date Type Department Care Team (Late st Contact Info) Description 04/05/2021 Refill [facility] - [facility] Medicine [facility] #2 [place] [address] Julian Encarnacion MD #[address] [address] Medication Refill Social History Tobacco Use Types [...] RN - 04/05/2021 1:35 PM CDT Per [place] PDMP last fill date 02/19/21. Medication failed [...] 1 month ago Arthralgia, unspecified joint [facility] Julian Hines MD 5 months ago Type 2 diabetes mellitus without complication, with long-term current use of insulin ([facility]) [facility] Julian Graham MD 8 months ago Type 2 diabetes mellitus without complication, with long-term current use of insulin ([facility]) [facility] Julian Graham MD 10 months ago Hematemesis, presence of nausea not specified [facility] Julian Graham MD 11 months ago Hematemesis, presence of nausea not specified [facility] Julian Graham MD Upcoming Appointments PVC MONITOR - Recent and Past Visits Recent Visits Date Type Provider Dept 02/21/21 Office Visit Julian Encarnacion MD [facility] 10/18/20 Office Visit Julian Encranacion MD [facility] 07/20/20 Office Visit Julian Encarnacion MD [facility] 06/08/20 Office Visit Julian Encarnacion MD [facility] 05/10/20 Office Visit Julian Encarnacion MD [facility] 03/23/20 Office Visit Julian Encarnacion MD [facility] 02/18/20 Office Visit Aletha Anand, PAC [facility] Showing recent visits within past 460 days [...] st Contact Info) Description 08/15/2025 10:00 AM COPPER TAPPER Office Visit [facility] - [facility]iology - [place] [address] [place] [address] Carolee Tay APRN, RAILROAD CAR LETTERER [address] [place] [address] documented as of this encounter Visit Diagnoses Diagnosis Arthralgia, unspecified joint documented in this encounter Additional Health Concerns Infection Onset Date Last Indicated Resolved Time COVID - 19 07/20/2024 07/20/2024 07/20/2024 3:10 AM COPPER TAPPER Assessment Noted Time PHQ-9 Depression Total Score: 0 04/24/20 10:39 AM CDT documented as of this encounter Care Teams Clinical Manager Home Care Relationship Specialty Start Date End Date Julian Encarnacion MD #2 [facility] [place] [address] PCP - General Family Medicine 03/28/20 04/23/22 Travis Torrez MD #2 [facility] [place] [address] PCP - General Family Medicine 05/21/22 Carolee Tay APRN, KIM [address] [place] [address] Nurse Practitioner Certified Nurse Practitioner 08/20/24 documented as of this encounter
--- OUTSIDE RECORDS SUMMARY | 2025-02-16 11:38 | XMS_ITS | Encounter Summary ---
Author Organization [facility] Address [address] [place] [address] Phone Care Team Providers Care Beer Merchant Name Role Phone Valreie Grimaldo MD Primary Care Provider + [phone] Cody Polk MD Unavailable [phone] Wen Nelson MD Unavailable José Miguel Alva MD Unavailable [phone] Drew Martínez MD Unavailable [phone] Lopez Nunez DO Unavailable [phone] Autumn Chapman OD Unavailable [phone] Alcon Camacho MD Unavailable [phone] Tess Brennan MD Unavailable [phone] Tee Moura MD Unavailable [phone] Michel Linda MD Unavailable Verena Crespo MD Unavailable [phone] Unknown, Notinfile Primary Care Provider Unavail able Julian Encarnacion MD Primary Care Provider Encounter Details Date Type Department Care Team (Late st Contact Info) Description 11/07/2017 Orders Only [facility] Provider, MD Tayler [address] [place] [address] Social History Tobacco Use Types Packs/Day Years Used Date Smoking Tobacco: Never Smokeless Tobacco: Never Alcohol Use Standard Drinks/Week Comments No 0 (1 standard drink = 0.6 oz pur e alcohol) Comments No Sex and Gender Information Value Date Recorded Sex Assigned at Not on file Legal Sex Female 11:50 PM FLOORPERSON Gender Identity Not on file Sexual Orientation [...] on filedocumented in this encounter Care Teams Beer Merchant Relationship Specialty Start Date End Date Valerie Grimaldo MD PCP - General 09/27/16 03/16/20 Unknown, Notinfile PCP - General 03/17/20 11/21/20 Julian Encarnacion MD [address] [address] PCP - General Family Medicine 11/22/20 [place] [address] [facility] [address] [place] [address] Pulmonary Disease 02/27/17 Wen Nelson MD [address] [place] [address] Obstetrics and Gynecology 02/27/17 José Miguel Alva MD [address] [facility] [address] [place] [address] Gynecologic Oncology 02/27/17 Drew Martínez MD [address] [place] [address] Orthopedic Surgery 02/27/17 Lopez Nunez DO [address] [place] [address] Consulting Physician Gastroenterology 04/25/17 Autumn Chapman OD [address] [place] [address] Optometry 04/28/17 [place] [address] [facility] [address] [place] [address] Consulting Physician Cardiology 09/07/17 Tess Brennan MD [address] [address] Referring Physician Gastroenterology 09/25/17 Tee Moura MD [address] [address] Referring Physician Surgery 11/29/17 Michel Linda MD [address] [address] Referring Physician General Surgery 03/11/19 Verena Crespo MD [address] [facility] [address] [place] [address] Consulting Physician Nephrology 03/13/19 documented as of this encounter
--- OUTSIDE RECORDS SUMMARY | 2025-02-16 11:38 | XMS_ITS | Clinical Summary ---
Author Organization [facility] Address [address], [address] [address] Phone Care Team Providers Care Testing Specialist Name Role Phone Travis Torrez MD Primary Care Provider [phone] Carolee Tay APRN, FORGING ENGINEER Unavailable Allergies Active Allergy Reactions Criticality Noted [...] drink = 0.6 oz pur e alcohol) [facility] Utilities Answer Date Recorded In the past 12 months has e [employer], gas, oil, or water [employer] threatened to shut off services in your home? No 07/20/2024 Social Connection and Isolation Panel Answer Date Recorded In a typical week, how many times do you talk on the phone with family, friends, or neighbors? Patient declined 07/20/2024 How often do you get togethe r with friends or relatives? Patient declined 07/20/2024 How often do you attend rastafarian or rastafari serv ices? Patient declined 07/20/2024 Do you belong to any clubs o r organizations such as rastafarian groups, unions, fraternal or athletic groups, or [...] Total Score - Questions 1-9 0 03/31 [facility] [place] of Occupat ional Health - Occupational Stress [...] any time in the past 12 m [facility], were you homeless or living in a jail (including now)? No 07/20/2024 Comments No Sex and Gender Information Value Date Recorded Sex Assigned at Not on file Legal Sex Female 7:37 PM CDT Gender Identity Not on file Sexual Orientation Not on file Last Filed Vital Signs Vital Sign Reading Time Taken Comments Blood Pressure 126/62 08/19/2024 3:01 PM NICU RN Pulse 81 08/19/2024 3:01 PM NICU RN Temperature 36.3 C (97.3 F) 08/19/2024 3:01 PM NICU RN Respiratory Rate 16 08/19/2024 3:01 PM NICU RN Oxygen Saturation 97% 08/19/2024 3:01 PM NICU RN Inhaled Oxygen Concentration - - Weight 105.2 kg (232 lb) 08/19/2024 3:01 PM NICU RN Height 157.5 cm (5' 2) 08/19/2024 3:01 PM NICU RN Body Mass Index 42.43 08/19/2024 3:01 PM NICU RN Plan of Treatment Upcoming Encounters Date Type Department Care Team (Late st Contact Info) Description 08/15/2025 10:00 AM NICU RN Office Visit [facility] - Cardiology - [place] [address] [place] [phone] Carolee Tay, BUILDING SERVICEMAN, FORGING ENGINEER [address] [place] [address] Health Maintenance Due Date Last Done Comments [...] this topic Medical Devices Implanted Type Area Paradi Operator Device Identifier Shelf Expiration Date Model / Serial / Lot Stent Coronary Leta Xience Everolimus Eluting [id number] - [id number] Implanted:Qty: 1 on 04/23/2018 [facility] IMPLANT N/A: Coronary [employer] 02/17/2019 [id number] / / [id number] Stent Coronary Leta Xience Everolimus Eluting [id number] - [id number] Implanted:Qty: 1 on 04/23/2018 by Joan Avalos MD at [facility] IMPLANT N/A: Coronary [employer] 01/15/2019 [id number] Procedures Procedure Name Priority Date/Time Associated Diagnosis Comments HEMOGLOBIN A1C W/ ESTIMATED GLUCOSE STAT 07/20/2024 5:18 AM NICU RN CMP (COMPREHENSIVE METABOLIC PANEL) STAT 07/19/2024 9:48 PM NICU RN DUY SCREENING BILATERAL DIGITAL W CAD W HARLEEN Routine 08/06/2022 3:00 PM NICU RN Encounter for screening mammogram for malignant neoplasm of breast Asymptomatic menopausal state DUY BONE DENSITOMETRY AXIAL SKELETON Routine 08/06/2022 2:30 PM NICU RN Encounter for screening mammogram for malignant neoplasm of breast Asymptomatic menopausal state STOOL, OCCULT BLOOD, DIAGNOSTIC, VIA GUAIAC STAT 04/30/2020 11:15 AM NICU RN HEPATITIS PANEL ACUTE (AHP) Routine 02/25/2019 3:42 AM CDT from Last 3 Months or Most Recently Relevant to Health Maintenance Results * (ABNORMAL) Hemoglobin A1C w/ Estimated Glucose (07/20/2024 5:18 AM NICU RN) HGB-A1C 6.3(H) 4.0 - 6.0 % 07/20/2024 5:57 AM NICU RN [facility] Est Average Glucose 134.1 mg/dL 07/20/2024 5:57 AM [facility] Blood Venipuncture / Unknown 07/20/2024 5:18 AM NICU RN 07/20/2024 5:37 AM NICU RN Narrative [facility] - 07/20/2024 5:57 AM NICU RN HEMOGLOBIN A1C: DIABETIC PATIENTS: WELL-CONTROLLED: 6.2 - 7.0 INTERMEDIATE WELL-CONTROLLED: 7.0 - 9.0 POORLY-CONTROLLED: >9.0 Specimens containing greater than 5% of Hemoglobin F may result in lower than expected % HbA1C results. us Elsa Nevarez BUILDING SERVICEMAN, FORGING ENGINEER CHEMISTRY ORDERABLES Final Result [facility] [address] [place] [address] * (ABNORMAL) CMP (Comprehensive Metabolic Panel) (07/19/2024 9:48 PM NICU RN) Pathologist [facility] SODIUM 140 136 - 145 mmol/L 07/19/2024 10:34 PM NICU RN [facility] POTASSIUM 4.3 3.5 - 5.1 mmol/L 07/19/2024 10:34 PM NICU RN [facility] CHLORIDE 108(H) 98 - 107 mmol/L 07/19/2024 10:34 PM [facility] CO2, VENOUS 23 22 - 30 mmol/L 07/19/2024 10:34 PM NICU RN [facility] ANION GAP 13.3 <18.0 mmol/L 07/19/2024 10:34 PM [facility] GLUCOSE 188(H) 70 - 99 mg/dL 07/19/2024 10:34 PM [facility] BUN 28(H) 10 - 20 mg/dL 07/19/2024 10:34 PM [facility] CREATININE, BLOOD 2.17(H) 0.60 - 1.00 mg/dL 07/19/2024 10:34 PM [facility] BUN/CREATININE RATIO 13 12 - 20 ratio 07/19/2024 10:34 PM [facility] TOTAL PROTEIN 7.3 6.0 - 8.0 g/dL 07/19/2024 10:34 PM [facility] ALBUMIN 3.7 3.5 - 5.0 g/dL 07/19/2024 10:34 PM [facility] A/G RATIO 1.0 1.0 - 2.2 07/19/2024 10:34 PM [facility] CALCIUM 10.1 8.7 - 10.5 mg/dL 07/19/2024 10:34 PM [facility] T BILI 0.5 0.2 - 1.2 mg/dL 07/19/2024 10:34 PM [facility] SGOT (AST) 17 6 - 42 U/L 07/19/2024 10:34 PM [facility] SGPT (ALT) 7 6 - 55 U/L 07/19/2024 10:34 PM [facility] ALKALINE PHOSPHATASE 93 40 - 150 U/L 07/19/2024 10:34 PM [facility] GFR, ESTIMATED 23(L) >=60 07/19/2024 10:34 PM [facility] Comment: Creatinine Clearance is the preferred criteria for selecting drug dose adjustments in renally impaired patients. The GFR is provided as additional pertinent clinical information. GFR is reported in mL/min/1.73 sq m. Calculation based on the Chronic Kidney Disease Epidemiology Collaboration (CKD- EPI) equation refit without adjustment for race. GFR, EST. 27(L) >=60 025 10:34 PM [facility] GFR, EST. NONAFRICAN 22(L) >=60 07/19/2024 10:34 PM NICU RN [facility] Blood Venipuncture / Unknown 07/19/2024 9:48 PM NICU RN 07/19/2024 10:08 PM NICU RN us Oswaldo Sue MD CHEMISTRY ORDERABLES Final Result [facility] [address] [place] [address] * DUY SCREENING BILATERAL DIGITAL W CAD W HARLEEN (08/06/2022 3:00 PM NICU RN) Anatomical Region Laterality Modality breast Bilateral Mammography 08/06/2022 3:12 PM NICU RN Narrative 08/07/2022 3:59 PM NICU RN - DUY SCREENING BILATERAL DIGITAL W CAD [...] to exams dated: 03/28/2020, 09/02/2019, 03/08/2019, 01/01/2018 [facility], 10/30/2017, and 10/27/2017 [facility]. BREAST TISSUE:There are scattered fibroglandular densities [...] exam. Electronically signed by: Dafne urena/penrad:08/07/2022 11:22:27 Special Services Supervisor(s): SONI Lao)(Sergey), [facility] letter sent: Normal Exam Reading [...] to exams dated: 03/28/2020, 09/02/2019, 03/08/2019, 01/01/2018 [facility], 10/30/2017, and 10/27/2017 [facility]. BREAST TISSUE:There are scattered fibroglandular densities [...] exam. Electronically signed by: Dafne urena/penrad:08/07/2022 11:22:27 Special Services Supervisor(s): SONI Lao)(M), [facility] letter sent: Normal Exam Reading location: [facility] BI-RADS: 2 Benign us Travis Torrez MD IMG MAMMO ORDERABLES Final Resu lt * [facility] BONE DENSITOMETRY AXIAL SKELETON (08/06/2022 2:30 PM NICU RN) Anatomical Region Laterality Modality BODY N/A Computed Radiogr aphy 08/07/2022 6:48 AM NICU RN Impressions 08/07/2022 6:51 AM NICU RN IMPRESSION: Low bone mass REFERENCE: Bone mineral [...] of Osteoporosis (http://www.nof.org/professionals/clinical-guidelines) Narrative 08/07/2022 6:51 AM NICU RN EXAM DESCRIPTION: [facility] BONE DENSITOMETRY AXIAL SKELETON REASON FOR STUDY: 72 y/o year old F with given history of screening. Paradi Operator/Model: [employer] (S/N [id number]) CLINICAL INFORMATION: Current height: 62 inches Maximum [...] Brinda Neal M.D. TW: TW Report ID: [id number] Reading Location: [id number] Procedure Note Brinda Neal MD - 08/07/2022 EXAM DESCRIPTION: DUY BONE DENSITOMETRY AXIAL SKELETON REASON FOR STUDY: 72 y/o year old F with given history of screening. Paradi Operator/Model: MakerCraft (S/N [id number]) CLINICAL INFORMATION: Current height: 62 inches Maximum [...] by Brinda Neal M.D. TW: Report ID: [id number] Reading Location: [id number] IMPRESSION: Low bone mass REFERENCE: Bone mineral [...] Occult Blood - Diagnostic (04/30/2020 11:15 AM NICU RN) [facility] OCCULT BLOOD DIAG Positive(A ) Negative 04/30/2020 11:53 AM NICU RN [facility] Stool Non-Phlebotomy Collection / Unknown 04/30/2020 11:15 AM NICU RN 04/30/2020 11:41 AM NICU RN Leland Rowan MD BODY FLUIDS & STOOLS ORDERABLES Final Result [facility] [address] [place] [address] * Hepatitis Panel Acute (AHP)-BELÉN (02/25/2019 3:42 AM CDT) [facility] HEPATITIS A IGM ANTIBODY NON DETECTED NON DETECTED 02/25/2019 3:20 PM CDT [facility] Comment: IGM Antibodies to HAV not detected. Does not exclude early acute or recovered HAV infection. HEP B CORE AB (IGM) NON DETECTED NON DETECTED 02/25/2019 3:20 PM CDT [facility] Comment: IGM anti-HBC not detected. Does not exclude the possibility of exposure to or infection with HBV. HEPATITIS B SURFACE ANTIGEN NON DETECTED NON DETECTED 02/25/2019 3:20 PM CDT [facility] Comment: A nonreactive test result does not [...] 0.12 <1 S/CO 02/25/2019 3:20 PM CDT [facility] Comment: Signal/Cutoff ratio < 0.79 is Nondetected [...] Crespo MD HEMATOLOGY ORDERABLES F inal Result [facility] [address] [facility] [place] [address], from Last 3 Months or Most Recently Relevant to Health Maintenance Insurance MEDIC[facility] Advance Directives Documents on File Type Date Recorded Patient Water Pump Installer Expl anation Advance Care Planning Discussion 05/10/2020 [...] measures to stabilize the patient. Care Teams Testing Specialist Relationship Specialty Start Date End Date Travis Torrez MD PCP - General Family Medicine 05/21/22 Carolee Tay APRN, FORGING ENGINEER [address] [place] [phone] Nurse Practitioner Certified Nurse Practitioner 08/20/24
--- OUTSIDE RECORDS SUMMARY | 2025-02-16 11:38 | XMS_ITS | Encounter Summary ---
Author Organization [facility] Address [address] [place] [address] Phone Care Team Providers Care Linux Systems Analyst Name Role Phone Julian Encarnacion MD Primary Care Provider [phone] Travis Torrez MD Primary Care Provider [phone] Carolee Tay APRN, CATERPILLAR OPERATOR Unavailable Reason for Visit * Reason Comments Medication Refill Encounter Details Date Type Department Care Team (Late st Contact Info) Description 11/14/2020 Refill [facility] #2 [place] [address] Julian Encarnacion MD #[address] [address] Medication Refill Social History Tobacco Use Types [...] Dept 10/18/20 Office Visit Julian Encarnacion MD [facility] [place] 07/20/20 Office Visit Julian Encarnacion MD [facility] [place] 06/08/20 Office Visit Julian Encarnacion MD [facility] [place] Showing recent visits within past 182 days and meeting all other requirements Future Appointments Date Type Provider Dept 01/17/21 Appointment Julian Encarnacion MD [facility] [place] Showing future appointments within next 90 days and meeting all other requirements Passed - HgA1C on record in past 6 months HGB-A1C Date Value Ref Range Status 10/18/2020 7.0 % Final documented in this encounter Plan of Treatment Upcoming Encounters Date Type Department Care Team (Late st Contact Info) Description 08/15/2025 10:00 AM WIND OPERATIONS SUPERVISOR Office Visit [facility] - Cardiology - [place] [address]2 [place] [address] Carolee Tay APRN, CATERPILLAR OPERATOR [address] [place] [address] documented as of this encounter Visit Diagnoses Not on filedocumented in this encounter Additional Health Concerns Infection Onset Date Last Indicated Resolved Time COVID - 19 07/20/2024 07/20/2024 07/20/2024 3:10 AM WIND OPERATIONS SUPERVISOR Assessment Noted Time PHQ-9 Depression Total Score: 0 04/24/20 20 10:39 AM CDT documented as of this encounter Care Teams Linux Systems Analyst Relationship Specialty Start Date End Date Julian Encarnacion MD [address] [address] PCP - General Family Medicine 03/28/20 04/23/22 Travis Torrez MD #[address] [address] PCP - General Family Medicine 05/21/22 Carolee Tay APRN, CATERPILLAR OPERATOR #[address] [place] [address] Nurse Practitioner Certified Nurse Practitioner 08/20/24 documented as of this encounter
--- OUTSIDE RECORDS SUMMARY | 2025-02-16 11:38 | XMS_ITS | Encounter Summary ---
Author Organization [facility] Address [address] [place] [address] Phone Care Team Providers Care Magnetic Tape Winder Name Role Phone Julian Encarnacion MD Primary Care Provider Travis Torrez MD Primary Care Provider [phone] Carolee Tay APRN, PEANUT SEPARATOR Unavailable Reason for Visit * Reason Comments Medication Refill Encounter Details Date Type Department Care Team (Late st Contact Info) Description 08/06/2021 Refill [facility] Family Medicine [facility] #2 [place] [address] Julian Encarnacion MD #[address] [address] Medication Refill Social History Tobacco Use Types [...] Autumn Patino RN - 08/07/2021 2:23 PM ASSISTANT FACILITY MANAGER Patient is not wanting an appointment, just wanted enough medication until she could see her new Dr. STANT FACILITY MANAGER * Telephone Encounter - Kenyetta Moran RMA - 08/07/2021 2:13 PM ASSISTANT FACILITY MANAGER Left voicemail STANT FACILITY MANAGER * Telephone Encounter - Dominique Conway RN - 08/07/2021 10:38 AM CST Provider requests patient appointment STANT FACILITY MANAGER * Telephone Encounter - Dominique Conway RN [...] Dept 02/21/21 Office Visit Julian Encarnacion MD [facility] [place] Showing recent visits within past 182 days and meeting all other requirements Future Appointments No visits were found meeting these conditions. Showing future appointments within next 90 days and meeting all other requirements STANT FACILITY MANAGER documented in this encounter Plan of Treatment Upcoming Encounters Date Type Department Care Team (Late st Contact Info) Description 08/15/2025 10:00 AM ASSISTANT FACILITY MANAGER Office Visit [facility] - Cardiology - [place] [address] [facility] [facility] [place] [address] Carolee Tay APRN, PEANUT SEPARATOR [address] [place] [address] documented as of this encounter Visit Diagnoses Not on filedocumented in this encounter Additional Health Concerns Infection Onset Date Last Indicated Resolved Time COVID - 19 07/20/2024 07/20/2024 07/20/2024 3:10 AM ASSISTANT FACILITY MANAGER Assessment Noted Time PHQ-9 Depression Total Score: 0 04/24/20 10:39 AM CDT documented as of this encounter Care Teams Magnetic Tape Winder Relationship Specialty Start Date End Date Julian Encarnacion MD #[address] [address] PCP - General Family Medicine 03/28/20 04/23/22 Travis Torrez MD #[address] [address] PCP - General Family Medicine 05/21/22 Carolee Tay APRN, KIM [address] [place] [address] Nurse Practitioner Certified Nurse Practitioner 08/20/24 documented as of this encounter
--- OUTSIDE RECORDS SUMMARY | 2025-02-16 11:38 | XMS_ITS | Encounter Summary ---
Author Organization [facility] Address [address] [place] [address] Phone Care Team Providers Care Documentation Nurse Name Role Phone Valerie Grimaldo MD Primary Care Provider + [phone] Cody Polk MD Unavailable Wen Nelson MD Unavailable José Miguel Alva MD Unavailable [phone] Drew Martínez MD Unavailable Lopez Nunez DO Unavailable [phone] Autumn Chapman OD Unavailable [phone] Alcon Camacho MD Unavailable [phone] Tess Brennan MD Unavailable [phone] Tee Moura MD Unavailable [phone] Michel Linda MD Unavailable Verena Crespo MD Unavailable [phone] Unknown, Notinfile Primary Care Provider Unavail able Julian Encarnacion MD Primary Care Provider Encounter Details Date Type Department Care Team (Late st Contact Info) Description 01/16/2017 Orders Only [facility] [address] [place] [address] Vaelrie Grimaldo MD [address] [place] [address] Diabetes mellitus without complication (HCC) (Primary Dx) Social History Tobacco Use Types Packs/Day Years Used Date Smoking Tobacco: Never Alcohol Use Standard Drinks/Week Comments No 0 (1 standard drink = 0.6 oz pur e alcohol) Comments Unknown Sex and Gender Information Value Date Recorded Sex Assigned at Not on file Legal Sex Female 11:50 PM DATABASE ARCHITECT Gender Identity Not on file Sexual [...] uncontrolled documented in this encounter Care Teams Documentation Nurse Relationship Specialty Start Date End Date Valerie Grimaldo MD PCP - General 09/27/16 03/16/20 Unknown, Notinfile PCP - General 03/17/20 11/21/20 Julian Encarnacion MD 2 [facility] [address] [place] [address] PCP - General Family Medicine 11/22/20 [place] [address] [facility] [address] [place] [address] Pulmonary Disease 02/27/17 Wen Nelson MD [address] [place] [address] Obstetrics and Gynecology 02/27/17 José Miguel Alva MD [address] [facility] [address] [place] [address] Gynecologic Oncology 02/27/17 Drew Martínez MD [address] [facility] [address] [place] [address] Orthopedic Surgery 02/27/17 Lopez Nunez DO [address] [place] [address] Consulting Physician Gastroenterology 04/25/17 Autumn Chapman OD [address] [place] [address] Optometry 04/28/17 [place] [address] [facility] [address] [place] [address] Consulting Physician Cardiology 09/07/17 Tess Brennan MD 2 [facility] [address] [address] Referring Physician Gastroenterology 09/25/17 Tee Moura MD [address] [facility] [address] [address] Referring Physician Surgery 11/29/17 Michel Linda MD [address] [facility] [address] [address] Referring Physician General Surgery 03/11/19 Verena Crespo MD 2 [facility] [place] [address] [address] Consulting Physician Nephrology 03/13/19 documented as of this encounter
--- OUTSIDE RECORDS SUMMARY | 2025-02-16 11:38 | XMS_ITS | Encounter Summary ---
Author Organization [facility] Address [address] [place] [address] Phone Care Team Providers Care Health Care Consultant Name Role Phone Travis Torrez MD Primary Care Provider [phone] Carolee Tay APRN, FISHING ROD TRIMMER Unavailable Reason for Visit * Reason Comments Medication Refill Encounter Details Date Type Department Care Team (Late Contact Info) Description 03/06/2023 Refill [facility] - Family Medicine [facility] #2 [place] [address] Julian Encarnacion MD #[address] [address] Medication Refill Social History Tobacco Use Types [...] st Contact Info) Description 08/15/2025 10:00 AM MEDIA DEVELOPER Office Visit [facility] - Cardiology [facility] #2 [place] [address] Carolee Tay APRN, FISHING ROD TRIMMER #[address] [place] [address] documented as of this encounter Visit Diagnoses Not on filedocumented in this encounter Additional Health Concerns Infection Onset Date Last Indicated Resolved Time COVID - 19 07/20/2024 07/20/2024 07/20/2024 3:10 AM MEDIA DEVELOPER Assessment Noted Time PHQ-9 Depression Total Score: 0 04/24/20 10:39 AM CDT documented as of this encounter Care Teams Health Care Consultant Relationship Specialty Start Date End Date Travis Torrez MD PCP - General Family Medicine 05/21/22 Carolee Tay APRN, FISHING ROD TRIMMER [address] [place] [address] Nurse Practitioner Certified Nurse Practitioner 08/20/24 documented as of this encounter
--- OUTSIDE RECORDS SUMMARY | 2025-02-16 11:38 | XMS_ITS | Encounter Summary ---
Author Organization [facility] Address [address] [place] [address] Phone Care Team Providers Care Uppers Edge Burnisher Name Role Phone Valerie Grimaldo MD Primary Care Provider + [phone] Cody Polk MD Unavailable [phone] Wen Nelson MD Unavailable José Miguel Alva MD Unavailable [phone] Drew Martínez MD Unavailable [phone] Lopez Nunez DO Unavailable [phone] Autumn Chapman OD Unavailable [phone] Alcon Camacho MD Unavailable [phone] Tess Brennan MD Unavailable [phone] Tee Moura MD Unavailable [phone] Michel Linda MD Unavailable Verena Crespo MD Unavailable [phone] Unknown, Notinfile Primary Care Provider Unavail able Julian Encarnacion MD Primary Care Provider Encounter Details Date Type Department Care Team (Late st Contact Info) Description 10/10/2017 Orders Only [facility] Provider, MD Tayler [address] [place] [address] Social History Tobacco Use Types Packs/Day Years Used Date Smoking Tobacco: Never Smokeless Tobacco: Never Alcohol Use Standard Drinks/Week Comments No 0 (1 standard drink = 0.6 oz pur e alcohol) Comments No Sex and Gender Information Value Date Recorded Sex Assigned at Not on file 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 Gender Identity Not on file Sexual [...] on filedocumented in this encounter Care Teams Uppers Edge Burnisher Relationship Specialty Start Date End Date Valerie Grimaldo MD PCP - General 09/27/16 03/16/20 Unknown, Notinfile PCP - General 03/17/20 11/21/20 Julian Encarnacion MD [address] [address] PCP - General Family Medicine 11/22/20 [place] [address] [facility] [address] [place] [address] Pulmonary Disease 02/27/17 Wen Nelson MD [address] [place] [address] Obstetrics and Gynecology 02/27/17 José Miguel Alva MD [address] [facility] [address] [place] [address] Gynecologic Oncology 02/27/17 Drew Martínez MD [address] [place] [address] [place] [address] Orthopedic Surgery 02/27/17 Lopez Nunez DO [address] [place] [address] [place] [address] Consulting Physician Gastroenterology 04/25/17 Autumn Chapman OD [address] [place] [address] Optometry 04/28/17 [place] [address] [facility] [address] [place] [address] Consulting Physician Cardiology 09/07/17 Tess Brennan MD [address] [facility] [address] Referring Physician Gastroenterology 09/25/17 Tee Moura MD [address] [facility] [address] Referring Physician Surgery 11/29/17 Michel Linda MD [address] [address] Referring Physician General Surgery 03/11/19 Verena Crespo MD [address] [facility] [address] [place] [address] Consulting Physician Nephrology 03/13/19 documented as of this encounter
--- OUTSIDE RECORDS SUMMARY | 2025-02-16 11:38 | XMS_ITS | Encounter Summary ---
Author Organization [facility] Address [address] [place] [address] Phone Care Team Providers Care Surgical Supervisor Name Role Phone Valerie Grimaldo MD Primary Care Provider + [phone] Cody Polk MD Unavailable [phone] Wen Nelson MD Unavailable [phone] José Miguel Alva MD Unavailable [phone] Drew Martínez MD Unavailable [phone] Lopez Nunez DO Unavailable [phone] Autumn Chapman OD Unavailable [phone] Alcon Camacho MD Unavailable [phone] Tess Brennan MD Unavailable [phone] Tee Moura MD Unavailable [phone] Michel Linda MD Unavailable Verena Crespo MD Unavailable [phone] Unknown, Notinfile Primary Care Provider Unavail able Julian Encarnacion MD Primary Care Provider [phone] Encounter Details Date Type Department Care Team (Late st Contact Info) Description 10/27/2017 Orders Only [facility] Provider, MD Tay[place] [address] [place] [address] Social History Tobacco Use Types Packs/Day Years Used Date Smoking Tobacco: Never Smokeless Tobacco: Never Alcohol Use Standard Drinks/Week Comments No 0 (1 standard drink = 0.6 oz pur e alcohol) Comments No Sex and Gender Information Value Date Recorded Sex Assigned at Not on file 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 Gender Identity Not on file Sexual [...] on filedocumented in this encounter Care Teams Surgical Supervisor Relationship Specialty Start Date End Date Valerie Grimaldo MD PCP - General 09/27/16 03/16/20 Unknown, Notinfile PCP - General 03/17/20 11/21/20 Julian Encarnacion MD [address] [address] PCP - General Family Medicine 11/22/20 [place] [address] [facility] [address] [place] [address] Pulmonary Disease 02/27/17 Wen Nelson MD [address] [place] [address] Obstetrics and Gynecology 02/27/17 José Miguel Alva MD [address] [facility] [address] [place] [address] Gynecologic Oncology 02/27/17 Drew Martínez MD [address] [place] [address] [place] [address] Orthopedic Surgery 02/27/17 Lopez Nunez DO [address] [place] [address] [place] [address] Consulting Physician Gastroenterology 04/25/17 Autumn Chapman OD [address] [place] [address] Optometry 04/28/17 [place] [address] [facility] [facility] [address] [place] [address] Consulting Physician Cardiology 09/07/17 Tess Brennan MD [address] [address] Referring Physician Gastroenterology 09/25/17 Tee Moura MD [address] [address] Referring Physician Surgery 11/29/17 Michel Linda MD [address] [address] Referring Physician General Surgery 03/11/19 Verena Crespo MD [address] [facility] [address] [place] [address] Consulting Physician Nephrology 03/13/19 documented as of this encounter
--- OUTSIDE RECORDS SUMMARY | 2025-02-16 11:38 | XMS_ITS | Encounter Summary ---
Author Organization [facility] Address [address] [place] [address] Phone Care Team Providers Care Statistical Secretary Name Role Phone Julian Encarnacion MD Primary Care Provider Travis Torrez MD Primary Care Provider Carolee Tay APRN, NAVY AIRSPACE OFFICER Unavailable Reason for Visit * Reason Comments Medication Refill Encounter Details Date Type Department Care Team (Late st Contact Info) Description 12/08/2020 Refill [facility] #2 [place] [address] Julian Encarnacion MD #[address] [address] Medication Refill Social History Tobacco Use Types [...] st Contact Info) Description 08/15/2025 10:00 AM 911 TELECOMMUNICATOR Office Visit [facility] - Cardiology [facility] #2 [place] [address] Carolee Tay APRN, NAVY AIRSPACE OFFICER [address] [place] [address] documented as of this encounter Visit Diagnoses Not on filedocumented in this encounter Additional Health Concerns Infection Onset Date Last Indicated Resolved Time COVID - 19 07/20/2024 07/20/2024 07/20/2024 3:10 AM 911 TELECOMMUNICATOR Assessment Noted Time PHQ-9 Depression Total Score: 0 04/24/20 10:39 AM CDT documented as of this encounter Care Teams Statistical Secretary Relationship Specialty Start Date End Date Julian Encarnacion MD #[id number] [address] PCP - General Family Medicine 03/28/20 04/23/22 Travis Torrez MD #[address] [address] PCP - General Family Medicine 05/21/22 Carolee Tay APRN, KIM #[address] [place] [address] Nurse Practitioner Certified Nurse Practitioner 08/20/24 documented as of this encounter
--- OUTSIDE RECORDS SUMMARY | 2025-02-16 11:38 | XMS_ITS | Encounter Summary ---
Author Organization [facility] Address [address] [place] [address] Phone Care Team Providers Care Councilor Name Role Phone Julian Encarnacion MD Primary Care Provider Travis Torrez MD Primary Care Provider Carolee Tay APRN, MICROSOFT SOLUTIONS ARCHITECT Unavailable Reason for Visit * Reason Comments Medication Refill Encounter Details Date Type Department Care Team (Late st Contact Info) Description 12/04/2020 Refill [facility] - Family [facility] #2 [place] [address] Julian Encarnacion MD #[address] [address] Medication Refill Social History Tobacco Use Types [...] insulin ([facility]) [facility] Julian Hines MD 4 months ago Type 2 diabetes mellitus without complication, with long-term current use of insulin ([facility]) [facility] Julian Graham MD 6 months ago Hematemesis, presence of nausea not specified [facility] Julian Graham MD 6 months ago Hematemesis, presence of nausea not specified [facility] Julian Graham MD 8 months ago Preop cardiovascular exam [facility] Julian Graham MD Upcoming Appointments Future Appointments In 1 month Julian Encarnacion MD [facility] [place] [facility] In 2 months Cristina Garcia APN, MICROSOFT SOLUTIONS ARCHITECT [facility] Oncology Services, [facility] ADVANCED DEVELOPER - Recent and Past Visits Recent Visits Date Type Provider Dept 10/18/20 Office Visit Julian Encarnacion MD [facility] 07/20/20 Office Visit Julian Encarnacion MD [facility] 06/08/20 Office Visit Julian Encarnacion MD [facility] 05/10/20 Office Visit Julian Encarnacion MD [facility] 03/23/20 Office Visit Julian Encarnacion MD [facility] [place] 02/18/20 Office Visit Aletha Anand PAC [facility] Showing recent visits within past 460 days with a meds authorizing provider and meeting all other requirements Future Appointments Date Type Provider Dept 01/17/21 Appointment Julian Encarnacion MD [facility] [place] Showing future appointments within next 90 days with a meds authorizing provider and meeting all other requirements documented in this encounter Plan of Treatment Upcoming Encounters Date Type Department Care Team (Late st Contact Info) Description 08/15/2025 10:00 AM TURF FARM WORKER Office Visit [facility] - Cardiology - [place] #2 [place] [address] Carolee Tay APRN, MICROSOFT SOLUTIONS ARCHITECT #2 [place] [address] documented as of this encounter Visit Diagnoses Not on filedocumented in this encounter Additional Health Concerns Infection Onset Date Last Indicated Resolved Time COVID - 19 07/20/2024 07/20/2024 07/20/2024 3:10 AM TURF FARM WORKER Assessment Noted Time PHQ-9 Depression Total Score: 0 04/24/20 20 10:39 AM CDT documented as of this encounter Care Teams Councilor Relationship Specialty Start Date End Date Julian Encarnacion MD #[address] [address] PCP - General Family Medicine 03/28/20 04/23/22 Travis Torrez MD #[address] [address] PCP - General Family Medicine 05/21/22 Carolee Tay APRN, MICROSOFT SOLUTIONS ARCHITECT #2 [place] [address] Nurse Practitioner Certified Nurse Practitioner 08/20/24 documented as of this encounter
--- OUTSIDE RECORDS SUMMARY | 2025-02-16 11:38 | XMS_ITS | Encounter Summary ---
Author Organization [facility] Address [address] [place] [address] Phone Care Team Providers Care Environmental Science Program Director Name Role Phone Valerie Grimaldo MD Primary Care Provider + [phone] Cody Polk MD Unavailable +[phone] Wen Nelson MD Unavailable José Miguel Alva MD Unavailable +[phone] Drew Martínez MD Unavailable +[phone] Lopez Nunez DO Unavailable [phone] Autumn Chapman OD Unavailable +[phone] Alcon Camacho MD Unavailable +[phone] Tess Brennan MD Unavailable +[phone] Tee Moura MD Unavailable +[phone] Michel Linda MD Unavailable Verena Crespo MD Unavailable +[phone] Unknown, Notinfile Primary Care Provider Unavail able Julian Encarnacion MD Primary Care Provider Encounter Details Date Type Department Care Team (Late st Contact Info) Description 11/26/2017 Orders Only [facility] Provider, MD Tayler [address] [place] [address] Social History Tobacco Use Types Packs/Day Years Used Date Smoking Tobacco: Never Smokeless Tobacco: Never Alcohol Use Standard Drinks/Week Comments No 0 (1 standard drink = 0.6 oz pur e alcohol) Comments No Sex and Gender Information Value Date Recorded Sex Assigned at Not on file 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 [address] [place] [address] Gynecologic Oncology 02/27/17 Drew Martínez MD [address] [place] [address] Orthopedic Surgery 02/27/17 Lopez Nunez DO [address] [place] [address] Consulting Physician Gastroenterology 04/25/17 Autumn Chapman OD [address] [place] [address] Optometry 04/28/17 [place] [address] [facility] [address] [place] [address] Consulting Physician Cardiology 09/07/17 Tess Brennan MD [address] [address] Referring Physician Gastroenterology 09/25/17 Tee Moura MD [address] [address] Referring Physician Surgery 11/29/17 Michel Linda MD [address] [address] Referring Physician General Surgery 03/11/19 Verena Crespo MD [address] [place] [address] [place] [address] Consulting Physician Nephrology 03/13/19 documented as of this encounter
--- OUTSIDE RECORDS SUMMARY | 2025-02-16 11:38 | XMS_ITS | Encounter Summary ---
Author Organization [facility] Address [address] [place] [address] Phone Care Team Providers Care Trouble Shooting Mechanic Name Role Phone Julian Encarnacion MD Primary Care Provider Travis Torrez MD Primary Care Provider [phone] Carolee Tay APRN, FLOAT NURSE Unavailable Reason for Visit * Reason Comments Medication Refill Encounter Details Date Type Department Care Team (Late st Contact Info) Description 02/15/2021 Refill [facility] - Family Medicine [facility] [address] [place] [address] Julian Encarnacion MD [address] [address] Medication Refill Social History Tobacco Use Types [...] with long-term current use of insulin (HCC) [facility] - Julian Hines MD 7 months ago Type 2 diabetes mellitus without complication, with long-term current use of insulin (HCC) [facility] Julian Graham MD 8 months ago Hematemesis, presence of nausea not specified [facility] Julian Graham MD 9 months ago Hematemesis, presence of nausea not specified [facility] Julian Graham MD 10 months ago Preop cardiovascular exam [facility] Julian Graham MD Upcoming Appointments Future Appointments In 1 week Cristina Garcia, CREATIVE ARTS THERAPIST, FLOAT NURSE [facility] Oncology Services, [facility] PHOTOGRAPHIC TECHNICIAN - Recent and Past Visits Recent Visits Date Type Provider Dept 10/18/20 Office Visit [facility] 07/20/20 Office Visit [facility] 06/08/20 Office Visit Julian Encarnacion MD [facility] 05/10/20 Office Visit Julian Encarnacion MD [facility] 03/23/20 Office Visit Julian Encarnacion MD [facility] [place] 02/18/20 Office Visit Aletha Anand, CAITLIN [facility] Showing recent visits within past 460 [...] st Contact Info) Description 08/15/2025 10:00 AM PRICK STITCHER Office Visit [facility] - Cardiology [facility] [address] [place] [address] Carolee Tay APRN, FLOAT NURSE [address] [place] [address] documented as of this encounter Visit Diagnoses Not on filedocumented in this encounter Additional Health Concerns Infection Onset Date Last Indicated Resolved Time COVID - 19 07/20/2024 07/20/2024 07/20/2024 3:10 AM PRICK STITCHER Assessment Noted Time PHQ-9 Depression Total Score: 0 04/24/20 10:39 AM CDT documented as of this encounter Care Teams Trouble Shooting Mechanic Relationship Specialty Start Date End Date Julian Encarnacion MD #[address] [address] PCP - General Family Medicine 03/28/20 04/23/22 Travis Torrez MD #[address] [address] PCP - General Family Medicine 05/21/22 Carolee Tay APRN, FLOAT NURSE [address] [place] [address] Nurse Practitioner Certified Nurse Practitioner 08/20/24 documented as of this encounter
--- OUTSIDE RECORDS SUMMARY | 2025-02-16 11:38 | XMS_ITS | Encounter Summary ---
Author Organization [facility] Address [address] [place] [address] Phone Care Team Providers Care Flue Cleaner Name Role Phone Julian Encarnacion MD Primary Care Provider [phone] Travis Torrez MD Primary Care Provider Carolee Tay APRN, CERTIFIED CODER Unavailable Reason for Visit * Reason Comments Medication Refill Encounter Details Date Type Department Care Team (Late st Contact Info) Description 05/17/2021 Refill [facility] - Family Medicine [facility] [address] [place] [address] Julian Encarnacion MD #[address] [address] Medication Refill Social History Tobacco Use Types [...] 05/17/2021 10:12 AM CST Prescription pending signature CIATE MEDICAL DIRECTOR * Telephone Encounter - Dominique Conway RN [...] Visits 2 months ago Arthralgia, unspecified joint [facility] - Julian Hines MD 7 months ago Type 2 diabetes mellitus without complication, with long-term current use of insulin ([facility] Julian Graham MD 10 months ago Type 2 diabetes mellitus without complication, with long-term current use of insulin ([facility]) [facility] Julian Graham MD 11 months ago Hematemesis, presence of nausea not specified [facility] Julian Graham MD 1 year ago Hematemesis, presence of nausea not specified [facility] Julian Graham MD Upcoming Appointments COLLEGE PHYSICS INSTRUCTOR - Recent and Past Visits Recent [...] [place] 02/18/20 Office Visit Aletha Anand PAC [facility] [place] Showing recent visits within past 460 days with a meds authorizing provider and meeting all other requirements Future Appointments No visits were found meeting these conditions. Showing future appointments within next 90 days with a meds authorizing provider and meeting all other requirements CIATE MEDICAL DIRECTOR documented in this encounter Plan of Treatment Upcoming Encounters Date Type Department Care Team (Late st Contact Info) Description 08/15/2025 10:00 AM ASSOCIATE MEDICAL DIRECTOR Office Visit [facility] - Cardiology - [place] [address] [place] [address] Carolee Tay APRN, CERTIFIED CODER [address] [place] [address] documented as of this encounter Visit Diagnoses Diagnosis Arthralgia, unspecified joint documented in this encounter Additional Health Concerns Infection Onset Date Last Indicated Resolved Time COVID - 19 07/20/2024 07/20/2024 07/20/2024 3:10 AM ASSOCIATE MEDICAL DIRECTOR Assessment Noted Time PHQ-9 Depression Total Score: 0 04/24/20 20 10:39 AM CDT documented as of this encounter Care Teams Flue Cleaner Relationship Specialty Start Date End Date Julian Encarnacion MD #[address] [address] PCP - General Family Medicine 03/28/20 04/23/22 Travis Torrez MD #[address] [address] PCP - General Family Medicine 05/21/22 Carolee Tay APRN, KIM [address] [place] [address] Nurse Practitioner Certified Nurse Practitioner 08/20/24 documented as of this encounter
--- OUTSIDE RECORDS SUMMARY | 2025-02-16 11:38 | XMS_ITS | Encounter Summary ---
Author Organization [facility] Address [address] [place] [address] Phone Care Team Providers Care Topper Packer Name Role Phone Valerie Grimaldo MD Primary Care Provider + [phone] Cody Polk MD Unavailable [phone] Wen Nelson MD Unavailable [phone] José Miguel Alva MD Unavailable [phone] Drew Martínez MD Unavailable [phone] Lopez Nunez DO Unavailable [phone] Autumn Chapman OD Unavailable [phone] Alcon Camacho MD Unavailable [phone] Tess Brennan MD Unavailable [phone] Tee Moura MD Unavailable [phone] Michel Linda MD Unavailable Verena Crespo MD Unavailable [phone] Unknown, Notinfile Primary Care Provider Unavail able Julian Encarnacion MD Primary Care Provider Encounter Details Date Type Department Care Team (Late st Contact Info) Description 10/20/2017 Orders Only [facility] Provider, MD Tayler [address] [place] [address] Social History Tobacco Use Types Packs/Day Years Used Date Smoking Tobacco: Never Smokeless Tobacco: Never Alcohol Use Standard Drinks/Week Comments No 0 (1 standard drink = 0.6 oz pur e alcohol) Comments No Sex and Gender Information Value Date Recorded Sex Assigned at Not on file 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 Gender Identity Not on file Sexual Orientation [...] on filedocumented in this encounter Care Teams Topper Packer Relationship Specialty Start Date End Date Valerie Grimaldo MD PCP - General 09/27/16 03/16/20 Unknown, Notinfile PCP - General 03/17/20 11/21/20 Julian Encarnacion MD [address] [address] PCP - General Family Medicine 11/22/20 [place] [address] [facility] [address] [place] [address] Pulmonary Disease 02/27/17 Wen Nelson MD [address] [place] [address] Obstetrics and Gynecology 02/27/17 José Miguel Alva MD [address] [facility] [address] [place] [address] Gynecologic Oncology 02/27/17 Drew Martínez MD [address] [place] [address] Orthopedic Surgery 02/27/17 Lopez Nunez DO [address] [place] [address] Consulting Physician Gastroenterology 04/25/17 Autumn Chapman OD [address] [place] [address] Optometry 04/28/17 [place] [address] [facility] [facility] [address] [place] [address] Consulting Physician Cardiology 09/07/17 Tess Brennan MD [address] [address] Referring Physician Gastroenterology 09/25/17 Tee Moura MD [address] [address] Referring Physician Surgery 11/29/17 Michel Linda MD [address] [address] Referring Physician General Surgery 03/11/19 Verena Crespo MD [address] [place] [address] [place] [address] Consulting Physician Nephrology 03/13/19 documented as of this encounter
--- OUTSIDE RECORDS SUMMARY | 2025-02-16 11:38 | XMS_ITS | Encounter Summary ---
Author Organization [facility] Address [address] [employer] [place] [address] Phone Care Team Providers Care Bed Manager Name Role Phone Valerie Grimaldo MD Primary Care Provider + [phone] Cody Polk MD Unavailable Wen Nelson MD Unavailable José Miguel Alva MD Unavailable Drew Martínez MD Unavailable [phone] Lopez Nunez DO Unavailable [phone] Autumn Chapman OD Unavailable +[phone] Alcon Camacho MD Unavailable [phone] Tess Brennan MD Unavailable [phone] eTe Moura MD Unavailable [phone] Michel Linda MD Unavailable Verena Crespo MD Unavailable [phone] Unknown, Notinfile Primary Care Provider Unavail able Julian Encarnacion MD Primary Care Provider [phone] Encounter Details Date Type Department Care Team (Late st Contact Info) Description 12/20/2016 Orders Only [facility] [address] [employer] [place] [address] Lisa Romano LPN Social History Tobacco Use Types Packs/Day Years Used Date Smoking Tobacco: Never Alcohol Use Standard Drinks/Week Comments No 0 (1 standard drink = 0.6 oz pur e alcohol) Comments Unknown Sex and Gender Information Value Date Recorded Sex Assigned at Not on file Legal Sex Female 11:50 PM RN HOME CARE Gender Identity Not on file Sexual Orientation Not on file documented as of this encounter Plan of Treatment Not on file documented as of this encounter Visit Diagnoses Not on filedocumented in this encounter Care Teams Bed Manager Relationship Specialty Start Date End Date Valerie Grimaldo MD PCP - General 09/27/16 03/16/20 Unknown, Notinfile PCP - General 03/17/20 11/21/20 Julian Encarnacion MD 2 [facility] [address] [place] [address] PCP - General Family Medicine 11/22/20 [place] [address] [facility] [address] [place] [address] Pulmonary Disease 02/27/17 Wen Nelson MD [address] [place] [address] Obstetrics and Gynecology 02/27/17 José Miguel Alva MD [address] [facility] [address] [place] [address] Gynecologic Oncology 02/27/17 Drew Martínez MD [address] [place] [address] Orthopedic Surgery 02/27/17 Lopez Nunez DO [address] [address] Consulting Physician Gastroenterology 04/25/17 Autumn Chapman OD [address] [place] [address] Optometry 04/28/17 [place] [address] [facility] [address] [place] [address] Consulting Physician Cardiology 09/07/17 Tess Brennan MD [address] [address] [address] Referring Physician Gastroenterology 09/25/17 Tee Moura MD [address] [address] [address] Referring Physician Surgery 11/29/17 Michel Linda MD 2 [facility] [address] [address] Referring Physician General Surgery 03/11/19 Verena Crespo MD 2 [facility] [address] [address] Consulting Physician Nephrology 03/13/19 documented as of this encounter
--- OUTSIDE RECORDS SUMMARY | 2025-02-16 11:38 | XMS_ITS | Encounter Summary ---
Author Organization [facility] Address [address] [place] [address] Phone Care Team Providers Care Custom Garment Designer Name Role Phone Julian Encarnacion MD Primary Care Provider Travis Torrez MD Primary Care Provider Carolee Tay APRN, SANDFILL OPERATOR Unavailable Reason for Visit * Reason Comments Medication Refill Encounter Details Date Type Department Care Team (Late st Contact Info) Description 06/20/2021 Refill [facility] - Family Medicine [facility] [address] [place] [address] Julian Encarnacion MD #[address] [address] Medication Refill Social History Tobacco Use Types [...] Kenyetta Moran RMA - 06/27/2021 10:55 AM HARP REGULATOR Left voicemail REGULATOR * Telephone Encounter - Dominique Conway RN - 06/26/2021 10:52 AM CST Patient needs appointment REGULATOR * Telephone Encounter - Carola Patiño MA - 06/25/2021 3:43 PM HARP REGULATOR Message left on Medication refill voice mail: Patient would like to know why the doctor has refusedher pain medication (Ty#3) ? See previous message from 06/21/21 . Please call patient @[phone] REGULATOR * Telephone Encounter - Kenyetta Moran RMA - 06/21/2021 11:19 AM HARP REGULATOR Left voicemiail REGULATOR * Telephone Encounter - Dominique Conway RN - 06/20/2021 3:56 PM CST PCP requests patient appointment REGULATOR * Telephone Encounter - Dominique Conway RN [...] Julian Encarnacion MD [facility] [place] 10/18/20 Office [facility] 07/20/20 Office Visit Julian Encarnacion MD [facility] [place] Showing recent visits within past 365 days and meeting all other requirements Future Appointments No visits were found meeting these conditions. Showing future appointments within next 90 days and meeting all other requirements REGULATOR documented in this encounter Plan of Treatment Upcoming Encounters Date Type Department Care Team (Late st Contact Info) Description 08/15/2025 10:00 AM HARP REGULATOR Office Visit [facility] - Cardiology - [place] [address] [place] [address] Carolee Tay APRN, SANDFILL OPERATOR [address] [place] [address] documented as of this encounter Visit Diagnoses Diagnosis Arthralgia, unspecified joint documented in this encounter Additional Health Concerns Infection Onset Date Last Indicated Resolved Time COVID - 19 07/20/2024 07/20/2024 07/20/2024 3:10 AM HARP REGULATOR Assessment Noted Time PHQ-9 Depression Total Score: 0 04/24/20 20 10:39 AM CDT documented as of this encounter Care Teams Custom Garment Designer Relationship Specialty Start Date End Date Julian Encarnacion MD #[address] [address] PCP - General Family Medicine 03/28/20 04/23/22 Travis Torrez MD #[address] [address] PCP - General Family Medicine 05/21/22 Carolee Tay APRN, SANDFILL OPERATOR [address] [place] [address] Nurse Practitioner Certified Nurse Practitioner 08/20/24 documented as of this encounter
--- OUTSIDE RECORDS SUMMARY | 2025-02-16 11:38 | XMS_ITS | Clinical Summary ---
Author Organization [facility] Address [address] [place] [address] Care Team Providers Care Inside Sales Agent Name Role Phone Cody Polk MD Unavailable [phone] Wen Nelson MD Unavailable José Miguel Alva MD Unavailable [phone] Drew Martínez MD Unavailable [phone] Lopez Nunez DO Unavailable [phone] Autumn Chapman OD Unavailable [phone] Alcon Camacho MD Unavailable [phone] Tess Brennan MD Unavailable +[phone] Tee Moura MD Unavailable [phone] Michel Linda MD Unavailable Verena Crespo MD Unavailable [phone] Julian Encarnacion MD Primary Care Provider Allergies [...] long-term current use of insulin ([facility]) Inject 30 Units under the skin 2 [...] controlled Assessment & Plan (08/10/2019 11:00 AM IDENTIFICATION AND RECORDS COMMANDER): Patient with improvement in HgbA1C from 10.4 [...] sleep apnea syndrome, 327.23. AXIS B: Polysomnography, 72969. 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 [...] 2 NSTEMI (non-ST elevated myoc ardial infarction) ([facility]) 09/07/2017 Acute saddle pulmonary embol ism with [...] on file Legal Sex Female 11:50 PM IDENTIFICATION AND RECORDS COMMANDER Gender Identity Not on file Sexual Orientation [...] Comments Blood Pressure 110/60 08/10/2019 9:44 AM IDENTIFICATION AND RECORDS COMMANDER Pulse 68 08/10/2019 9:44 AM IDENTIFICATION AND RECORDS COMMANDER Temperature 36.1 C (97 F) 05/25/2019 7:56 AM IDENTIFICATION AND RECORDS COMMANDER Respiratory Rate 12 08/10/2019 9:44 AM IDENTIFICATION AND RECORDS COMMANDER Oxygen Saturation 97% 08/10/2019 9:44 AM IDENTIFICATION AND RECORDS COMMANDER Inhaled Oxygen Concentration - - Weight 113.4 kg (250 lb) 08/10/2019 9:44 AM IDENTIFICATION AND RECORDS COMMANDER Height 157.5 cm (5' 2) 01/26/2019 9:45 [...] COMPREHENSIVE METABOLIC PANEL Routine 08/07/2019 9:31 AM IDENTIFICATION AND RECORDS COMMANDER Type 2 diabetes mellitus with stage 4 chronic kidney disease, with long-term current use of insulin (HCC) Hypertension complicating diabetes (HCC) ALBUMIN CREATININE RATIO, URINE Routine 08/07/2019 9:31 AM IDENTIFICATION AND RECORDS COMMANDER Type 2 diabetes mellitus with stage 4 chronic kidney disease, with long-term current use of insulin (HCC) Hypertension complicating diabetes (HCC) SCREENING MAMMOGRAM 2D BILATERAL Schedule Routine, Read Routine (OP Routine) 10/27/2017 10:50 AM CDT Encounter for screening mammogram for malignant neoplasm of breast HEPATITIS C ANTIBODY Routine 09/05/2017 1:37 PM IDENTIFICATION AND RECORDS COMMANDER SERUM LIPID PANEL Routine 07/24/2016 9:0 5 AM IDENTIFICATION AND RECORDS COMMANDER from Last 3 Months or Most Recently [...] MD LAB BLOOD ORDERABLES Final Result [facility] [address] [address] * (ABNORMAL) Albumin Creatinine Ratio, Urine (08/07/2019 9:31 AM IDENTIFICATION AND RECORDS COMMANDER) Creatinine, ur 142 20 - 275 mg/dL [facility] [place] Microalbumin, ur 17.3 See Note: mg/dL [facility] [place] Comment: Reference Range: Reference Range Not established Microalbumin/creat ratio 122(H) <30 mcg/mg creat [facility] [place] Comment: The ADA defines abnormalities in albumin excretion as follows: Category Result (mcg/mg creatinine) Normal <30 Microalbuminuria 30-299 Clinical albuminuria > OR = 300 The ADA recommends that at least two of three specimens collected within a 3-6 month period be abnormal before considering a patient to be within a diagnostic category. Urine 08/07/2019 9:31 AM IDENTIFICATION AND RECORDS COMMANDER 08/07/2019 9:31 AM IDENTIFICATION AND RECORDS COMMANDER Narrative Resulting Agency Comment Performing Organization Information: Site ID: [place] Name: [facility] Address: [address] [address] Director: Cody Castro D.O., MPH us Valerie Grimaldo MD LAB URINE ORDERABLES Final Result [facility] - [place], [place] * (ABNORMAL) Comprehensive metabolic panel (08/07/2019 9:31 AM IDENTIFICATION AND RECORDS COMMANDER) Glucose 148(H) 65 - 99 mg/dL [facility] [place] Comment: Fasting reference interval [...] approximately 13% higher for people identified as -Trinidadian. eGFR NON-AFR. BRITISH 30(L) > OR = 60 mL/min/1. 73m2 [...] [place] Blood specimen (specimen) 08/07/2019 9:31 AM IDENTIFICATION AND RECORDS COMMANDER 08/07/2019 9:31 AM IDENTIFICATION AND RECORDS COMMANDER Narrative Resulting Agency Comment Performing Organization Information: Site ID: [place] Name: [facility] Address: [address] [place] [address] [place] [address] Director: Cody Castro D.O., MPH us Valerie [...] * Hepatitis C antibody (09/05/2017 1:37 PM IDENTIFICATION AND RECORDS COMMANDER) Hep C Ab Negative Negative [facility] Blood specimen (specimen) 09/05/2017 1:37 PM IDENTIFICATION AND RECORDS COMMANDER 09/05/2017 8:35 PM IDENTIFICATION AND RECORDS COMMANDER Narrative [facility] - 09/05/2017 9:21 PM IDENTIFICATION AND RECORDS COMMANDER Valerie Grimaldo MD LAB MICROBIOLOGY - GENERAL ORDERABLES Edited Result - Final [facility] [id number] [address] Department of Laboratories [place] [id number] * (ABNORMAL) Serum lipid panel (07/24/2016 9:05 AM IDENTIFICATION AND RECORDS COMMANDER) Cholesterol 222(H) 100 - 200 mg/dl CDR [...] last revised 2016. Serum 07/24/2016 9:05 AM IDENTIFICATION AND RECORDS COMMANDER Valerie Grimaldo MD LAB BLOOD ORDERABLES Final Result [facility] HISTORICAL RESULTS from Last 3 Months or Most Recently Relevant to Health Maintenance Insurance [facility] REF [facility] HMO REF MEDICARE FORMERLY [facility] MEDICARE ADV [facility] MDCR HMO REF Advance Directives For more information, please contact: [phone] Documents on File Type Date Recorded Patient Mechanical Equipment Sales Engineer Expl anation ADVANCE DIRECTIVE 05/01/2018 2:42 PM POWER OF RAIL TRANSIT OPERATOR ADVANCE DIRECTIVE 05/01/2018 2:42 PM Care Teams Inside Sales Agent Relationship Specialty Start Date End Date Julian Encarnacion MD [address] [facility] [address] [place] [address] PCP - General Family Medicine 11/22/20 [place] [address] [address] [facility] [address] [place], [place] [id number] Pulmonary Disease 02/27/17 Wen Nelson MD [address] [place] [address] Obstetrics and Gynecology 02/27/17 José Miguel Alva MD [address] [facility] [address] [place] [address] Gynecologic Oncology 02/27/17 Drew Martínez MD [address] [place] [address] Orthopedic Surgery 02/27/17 Lopez Nunez DO [address] [place] [address] Consulting Physician Gastroenterology 04/25/17 Autumn Chapman OD [address] [facility] [place] [address] Optometry 04/28/17 [place] [address] [address] [facility] [address] [place] [address] Consulting Physician Cardiology 09/07/17 Tess Brennan MD [address] [facility] [address] [address] Referring Physician Gastroenterology 09/25/17 Tee Moura MD [address] [address] Referring Physician Surgery 11/29/17 Michel Linda MD [address] [address] Referring Physician General Surgery 03/11/19 Verena Crespo MD [address] [address] Consulting Physician Nephrology 03/13/19
--- OUTSIDE RECORDS SUMMARY | 2025-02-16 11:38 | XMS_ITS | Encounter Summary ---
Author Organization [facility] Address [address] [place] [address] Phone Care Team Providers Care Floatlight Loading Supervisor Name Role Phone Julian Encarnacion MD Primary Care Provider [phone] Travis Torrez MD Primary Care Provider Carolee Tay APRN, PCAT INSTRUCTOR Unavailable Reason for Visit * Reason Comments Medication Refill Encounter Details Date Type Department Care Team (Late st Contact Info) Description 10/16/2020 Refill [facility] - Family Medicine [facility] [address] [place] [address] Julian Encarnacion MD [address] [address] Medication Refill Social History Tobacco Use Types [...] with long-term current use of insulin (HCC) [facility] - Julian Hines MD 4 months ago Hematemesis, presence of nausea not specified [facility] Julian Graham MD 5 months ago Hematemesis, presence of nausea not specified [facility] Julian Graham MD 6 months ago Preop cardiovascular exam [facility] Julian Graham MD 8 months ago Coronary artery disease with angina pectoris, unspecified vessel or lesion type, unspecified whether iliamna or transplanted heart (HCC) [facility] - Aletha Benson, CAITLIN Upcoming Appointments Future Appointments Tomorrow Julian Encarnacion MD [facility] - [place], [facility] In 6 days Cristina Garcia APN, PCAT INSTRUCTOR [facility] Oncology Services, [facility] In [address] VACCINE [facility]IC [facility] - [facility] TIMBER SIZER OPERATOR - Recent and Past Visits Recent Visits Date Type Provider Dept 07/20/20 Office Visit Julian Encarnacion MD [facility] [place] 06/08/20 Office Visit Julian Encarnacino MD [facility] 05/10/20 Office Visit Julian Encarnacion MD [facility] 03/23/20 Office Visit Julian Encarnacion MD [facility] 02/18/20 [facility] Showing recent visits within past 460 days with a meds authorizing provider and meeting all other requirements Future Appointments Date Type Provider Dept 10/18/20 Appointment [facility] MD [facility] Showing future appointments within next 90 days with a meds authorizing provider and meeting all other requirements documented in this encounter Plan of Treatment Upcoming Encounters Date Type Department Care Team (Late st Contact Info) Description 08/15/2025 10:00 AM CHANNEL MACHINE OPERATOR Office Visit [facility] - Cardiology - [place] [address] [place] [address] Carolee Tay APRN, PCAT INSTRUCTOR [address] [facility] [place] [address] documented as of this encounter Visit Diagnoses Not on filedocumented in this encounter Additional Health Concerns Infection Onset Date Last Indicated Resolved Time COVID - 19 07/20/2024 07/20/2024 07/20/2024 3:10 AM CHANNEL MACHINE OPERATOR Assessment Noted Time PHQ-9 Depression Total Score: 0 04/24/20 10:39 AM CDT documented as of this encounter Care Teams Floatlight Loading Supervisor Relationship Specialty Start Date End Date Julian Encarnacion MD #[address] [place] [address] PCP - General Family Medicine 03/28/20 04/23/22 Travis Torrez MD #[address] [place] [address] PCP - General Family Medicine 05/21/22 Carolee Tay APRN, PCAT INSTRUCTOR [address] [place] [address] Nurse Practitioner Certified Nurse Practitioner 08/20/24 documented as of this encounter
--- OUTSIDE RECORDS SUMMARY | 2025-02-16 11:38 | XMS_ITS | Encounter Summary ---
Author Organization [facility] Address [address] [place] [address] Phone Care Team Providers Care Narrow Fabrics Weaver Name Role Phone Valerie Grimaldo MD Primary Care Provider + [phone] Cody Polk MD Unavailable [phone] Wen Nelson MD Unavailable José Miguel Alva MD Unavailable +[phone] Drew Martínez MD Unavailable [phone] Lopez Nunez DO Unavailable [phone] Autumn Chapman OD Unavailable [phone] Alcon Camacho MD Unavailable [phone] Tess Brennan MD Unavailable [phone] Tee Moura MD Unavailable [phone] Michel Linda MD Unavailable Verena Crespo MD Unavailable [phone] Unknown, Notinfile Primary Care Provider Unavail able Julian Encarnacion MD Primary Care Provider Encounter Details Date Type Department Care Team (Late st Contact Info) Description 09/05/2017 Orders Only [facility] Provider, MD Tayler [address] [place] [address] Social History Tobacco Use Types Packs/Day Years Used Date Smoking Tobacco: Never Smokeless Tobacco: Never Alcohol Use Standard Drinks/Week Comments No 0 (1 standard drink = 0.6 oz pur e alcohol) Comments No Sex and Gender Information Value Date Recorded Sex Assigned at Not on file Legal Sex Female 11:50 PM OIL FURNACE INSTALLER Gender Identity Not on file Sexual Orientation Not on file documented as of this encounter Plan of Treatment Not on file documented as of this encounter Procedures Procedure Name Priority Date/Time Associated Diagnosis Comments DISCHARGE LABORATORY CUMULATIVE REPORT 09/05/2017 12:00 AM OIL FURNACE INSTALLER documented in this encounter Results * DISCHARGE LABORATORY CUMULATIVE REPORT (09/05/2017 12:00 AM OIL FURNACE INSTALLER) Narrative 09/05/2017 12:00 AM OIL FURNACE INSTALLER Ordered by an unspecified provider. us Historical Provider LAB BLOOD ORDERABLES Soledad l Result documented in this encounter Visit Diagnoses Not on filedocumented in this encounter Care Teams Narrow Fabrics Weaver Relationship Specialty Start Date End Date Valerie Grimaldo MD PCP - General 09/27/16 03/16/20 Unknown, Notinfile PCP - General 03/17/20 11/21/20 Julian Encarnacion MD 2 [facility] [address] [place] [address] PCP - General Family Medicine 11/22/20 [place] [address] [facility] [address] [place] [address] Pulmonary Disease 02/27/17 Wen Nelson MD [address] [place] [address] Obstetrics and Gynecology 02/27/17 José Miguel Alva MD [address] [facility] [address] [place] [address] Gynecologic Oncology 02/27/17 Drew Martínez MD [address] [facility] [address] [place] [address] Orthopedic Surgery 02/27/17 Lopez Nunez DO [address] [facility] [address] [place] [address] Consulting Physician Gastroenterology 04/25/17 Autumn Chapman OD [address] [place] [address] Optometry 04/28/17 [place] [address] [facility] [address] [place] [address] Consulting Physician Cardiology 09/07/17 Tess Brennan MD [address] [facility] [facility] [address] [address] Referring Physician Gastroenterology 09/25/17 Tee Moura MD [address] [address] [address] Referring Physician Surgery 11/29/17 Michel Linda MD [address] [address] [address] Referring Physician General Surgery 03/11/19 Verena Crespo MD [address] [address] Consulting Physician Nephrology 03/13/19 documented as of this encounter
--- OUTSIDE RECORDS SUMMARY | 2025-02-16 11:39 | XMS_ITS | Encounter Summary ---
Author Organization [facility] Address [address] [place] [address] Phone Care Team Providers Care Appellate Court Clerk Name Role Phone Valerie Grimaldo MD Primary Care Provider + [phone] Cody Polk MD Unavailable [phone] Wen Nelson MD Unavailable José Miguel Alva MD Unavailable [phone] Drew Martínez MD Unavailable [phone] Lopez Nunez DO Unavailable [phone] Autumn Chapman OD Unavailable [phone] Alcon Camacho MD Unavailable [phone] Tess Brennan MD Unavailable [phone] Tee Moura MD Unavailable [phone] Michel Linda MD Unavailable Verena Crespo MD Unavailable [phone] Unknown, Notinfile Primary Care Provider Unavail able Julian Encarnacion MD Primary Care Provider [phone] Encounter Details Date Type Department Care Team (Late st Contact Info) Description 08/22/2017 Orders Only [facility] Provider, MD Tayler [address] [place] [address] Social History Tobacco Use Types Packs/Day Years Used Date Smoking Tobacco: Never Smokeless Tobacco: Never Alcohol Use Standard Drinks/Week Comments No 0 (1 standard drink = 0.6 oz pur e alcohol) Comments Unknown Sex and Gender Information Value Date Recorded Sex Assigned at Not on file Legal Sex Female 11:50 PM TERRAZZO MECHANIC HELPER Gender Identity Not on file Sexual Orientation Not on file documented as of this encounter Plan of Treatment Not on file documented as of this encounter Procedures Procedure Name Priority Date/Time Associated Diagnosis Comments DISCHARGE LABORATORY CUMULATIVE REPORT 08/22/2017 12:00 AM TERRAZZO MECHANIC HELPER documented in this encounter Results * DISCHARGE LABORATORY CUMULATIVE REPORT (08/22/2017 12:00 AM TERRAZZO MECHANIC HELPER) Narrative 08/22/2017 12:00 AM TERRAZZO MECHANIC HELPER Ordered by an unspecified provider. us Historical Provider LAB BLOOD ORDERABLES Soledad l Result documented in this encounter Visit Diagnoses Not on filedocumented in this encounter Care Teams Appellate Court Clerk Relationship Specialty Start Date End Date Valerie Grimaldo MD PCP - General 09/27/16 03/16/20 Unknown, Notinfile PCP - General 03/17/20 11/21/20 Julian Encarnacion MD 2 [facility] [address] [place] [address] PCP - General Family Medicine 11/22/20 [place] [address] [facility] [address] [place] [address] Pulmonary Disease 02/27/17 Wen Nelson MD [address] [address] Obstetrics and Gynecology 02/27/17 José Miguel Alva MD [address] [facility] [address] [place] [address] Gynecologic Oncology 02/27/17 Drew Martínez MD [address] [facility] [address] [place] [address] Orthopedic Surgery 02/27/17 Lopez Nunez DO [address] [facility] [address] [place] [address] Consulting Physician Gastroenterology 04/25/17 Autumn Chapman OD [address] [place] [address] Optometry 04/28/17 [place] [address] [facility] [address] [place] [address] Consulting Physician Cardiology 09/07/17 Tess Brennan MD [address] [facility] [facility] [address] [address] Referring Physician Gastroenterology 09/25/17 Tee Moura MD [address] [address] Referring Physician Surgery 11/29/17 Michel Linda MD [address] [address] Referring Physician General Surgery 03/11/19 Verena Crespo MD [address] [address] Consulting Physician Nephrology 03/13/19 documented as of this encounter
--- OUTSIDE RECORDS SUMMARY | 2025-02-16 11:39 | XMS_ITS | Encounter Summary ---
Author Organization [facility] Address [address] [place] [address] Phone Care Team Providers Care Mud Logger Name Role Phone Valerie Grimaldo MD Primary Care Provider + [phone] Cody Polk MD Unavailable [phone] Wen Nelson MD Unavailable José Miguel Alva MD Unavailable [phone] Drew Martínez MD Unavailable [phone] Lopez Nunez DO Unavailable [phone] Autumn Chapman OD Unavailable [phone] Alcon Camacho MD Unavailable [phone] Tess Brennan MD Unavailable [phone] Tee Moura MD Unavailable [phone] Michel Linda MD Unavailable Verena Crespo MD Unavailable [phone] Unknown, Notinfile Primary Care Provider Unavail able Julian Encarnacion MD Primary Care Provider [phone] Encounter Details Date Type Department Care Team (Late st Contact Info) Description 10/01/2017 Orders Only [facility] Provider, MD Tayler [address] [place] [address] Social History Tobacco Use Types Packs/Day Years Used Date Smoking Tobacco: Never Smokeless Tobacco: Never Alcohol Use Standard Drinks/Week Comments No 0 (1 standard drink = 0.6 oz pur e alcohol) Comments No Sex and Gender Information Value Date Recorded Sex Assigned at Not on file Legal Sex Female 11:50 PM CIRCULATION MAN Gender Identity Not on file Sexual Orientation [...] on filedocumented in this encounter Care Teams Mud Logger Relationship Specialty Start Date End Date Valerie Grimaldo MD PCP - General 09/27/16 03/16/20 Unknown, Notinfile PCP - General 03/17/20 11/21/20 Julian Encarnacion MD [address] [address] PCP - General Family Medicine 11/22/20 [place] [address] [facility] [address] [place] [address] Pulmonary Disease 02/27/17 Wen Nelson MD [address] [place] [address] Obstetrics and Gynecology 02/27/17 José Miguel Alva MD [address] [facility] [address] [place] [address] Gynecologic Oncology 02/27/17 Drew Martínez MD [address] [place] [address] Orthopedic Surgery 02/27/17 Lopez Nunez DO [address] [place] [address] Consulting Physician Gastroenterology 04/25/17 Autumn Chapman OD [address] [place] [address] Optometry 04/28/17 [place] [address] [facility] [address] [place] [address] Consulting Physician Cardiology 09/07/17 Tess Brennan MD [address] [address] Referring Physician Gastroenterology 09/25/17 Tee Moura MD [address] [address] Referring Physician Surgery 11/29/17 Michel Linda MD [address] [address] [address] Referring Physician General Surgery 03/11/19 Verena Crespo MD [address] [facility] [address] [place] [address] Consulting Physician Nephrology 03/13/19 documented as of this encounter
--- OUTSIDE RECORDS SUMMARY | 2025-02-16 11:39 | XMS_ITS | Encounter Summary ---
Author Organization [facility] Address [address] [place] [address] Phone Care Team Providers Care Hearing Dog Trainer Name Role Phone Valerie Grimaldo MD Primary Care Provider + [phone] Cody Polk MD Unavailable Wen Nelson MD Unavailable José Miguel Alva MD Unavailable Drew Martínez MD Unavailable +[phone] Lopez Nunez DO Unavailable [phone] Autumn Chapman OD Unavailable +[phone] Alcon Camacho MD Unavailable [phone] Tess Brennan MD Unavailable [phone] Tee Moura MD Unavailable [phone] Michel Linda MD Unavailable Verena Crespo MD Unavailable [phone] Unknown, Notinfile Primary Care Provider Unavail able Julian Encarnacion MD Primary Care Provider Encounter Details Date Type Department Care Team (Late st Contact Info) Description 09/05/2017 Orders Only [facility] [address] [place] [address] Valerie Grimaldo MD [address] [place] [address] Social History Tobacco Use Types Packs/Day Years Used Date Smoking Tobacco: Never Smokeless Tobacco: Never Alcohol Use Standard Drinks/Week Comments No 0 (1 standard drink = 0.6 oz pur e alcohol) Comments No Sex and Gender Information Value Date Recorded Sex Assigned at Not on file 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 Sex 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 Gender Identity Not on file Sexual Orientation Not on file documented as of this encounter Plan of Treatment Not on file documented as of this encounter Procedures Procedure Name Priority Date/Time Associated Diagnosis Comments SCAN - RADIOLOGY/IMAGING 09/05/2017 10:47 AM ASSISTANT FILM EDITOR documented in this encounter Results * SCAN - RADIOLOGY/IMAGING (09/05/2017 10:47 AM ASSISTANT FILM EDITOR) Anatomical Region Laterality Modality Other Valerie Grimaldo MD Final Resu lt documented in this encounter Visit Diagnoses Not on filedocumented in this encounter Care Teams Hearing Dog Trainer Relationship Specialty Start Date End Date Valerie Grimaldo MD PCP - General 09/27/16 03/16/20 Unknown, Notinfile PCP - General 03/17/20 11/21/20 Julian Encarnacion MD [address] [address] [place] [address] PCP - General Family Medicine 11/22/20 [place] [address] [facility] [address] [place] [address] Pulmonary Disease 02/27/17 Wen Nelson MD [address] [place] [address] Obstetrics and Gynecology 02/27/17 José Miguel Alva MD [address] [facility] [address] [place], [place] [id number] Gynecologic Oncology 02/27/17 Drew Martínez MD [address] [place] [address] Orthopedic Surgery 02/27/17 Lopez Nunez DO [address] [place] [address] Consulting Physician Gastroenterology 04/25/17 Autumn Chapman OD [address] [place] [address] Optometry 04/28/17 [place] [address] [facility] [address] [place] [address] Consulting Physician Cardiology 09/07/17 Tess Brennan MD [facility] [address] [address] Referring Physician Gastroenterology 09/25/17 Tee Moura MD [facility] [address] [address] Referring Physician Surgery 11/29/17 Michel Linda MD [facility] [address] [address] Referring Physician General Surgery 03/11/19 Verena Crespo MD [address] [facility] [address] [address] Consulting Physician Nephrology 03/13/19 documented as of this encounter
--- OUTSIDE RECORDS SUMMARY | 2025-02-16 11:39 | XMS_ITS | Encounter Summary ---
Author Organization [facility] Address [address] [place] [address] Phone Care Team Providers Care Jive Developer Name Role Phone Valerie Grimaldo MD Primary Care Provider + [phone] Cody Polk MD Unavailable [phone] Wen Nelson MD Unavailable [phone] José Miguel Alva MD Unavailable +[phone] Drew Martínez MD Unavailable [phone] Lopez Nunez DO Unavailable [phone] Autumn Chapman OD Unavailable [phone] Alcon Camacho MD Unavailable [phone] Tess Brennan MD Unavailable [phone] Tee Moura MD Unavailable [phone] Michel Linda MD Unavailable Verena Crespo MD Unavailable [phone] Unknown, Notinfile Primary Care Provider Unavail able Julian Encarnacion MD Primary Care Provider Encounter Details Date Type Department Care Team (Late st Contact Info) Description 09/15/2017 Orders Only [facility] Provider, MD [place] [address] [place] [address] Social History Tobacco Use Types Packs/Day Years Used Date Smoking Tobacco: Never Smokeless Tobacco: Never Alcohol Use Standard Drinks/Week Comments No 0 (1 standard drink = 0.6 oz pur e alcohol) Comments No Sex and Gender Information Value Date Recorded Sex Assigned at Not on file 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 Sex 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 Gender Identity Not on file Sexual Orientation [...] on filedocumented in this encounter Care Teams Jive Developer Relationship Specialty Start Date End Date Valerie Grimaldo MD PCP - General 09/27/16 03/16/20 Unknown, Notinfile PCP - General 03/17/20 11/21/20 Julian Encarnacion MD [address] [address] PCP - General Family Medicine 11/22/20 [place] [address] [facility] [address] [place] [address] Pulmonary Disease 02/27/17 Wen Nelson MD [address] [address] Obstetrics and Gynecology 02/27/17 José Miguel Alva MD [address] [facility] [address] [place] [address] Gynecologic Oncology 02/27/17 Drew Martínez MD [address] [place] [address] Orthopedic Surgery 02/27/17 Lopez Nunez DO [address] [place] [address] Consulting Physician Gastroenterology 04/25/17 Autumn Chapman OD [address] [place] [address] Optometry 04/28/17 [place] [address] [facility] [address] [place] [address] Consulting Physician Cardiology 09/07/17 Tess Brennan MD 2 [facility] [address] [place] [address] Referring Physician Gastroenterology 09/25/17 Tee Moura MD [address] [address] Referring Physician Surgery 11/29/17 Michel Linda MD [address] [facility] [address] [address] Referring Physician General Surgery 03/11/19 Verena Crespo MD [address] [facility] [address] [address] Consulting Physician Nephrology 03/13/19 documented as of this encounter
--- OUTSIDE RECORDS SUMMARY | 2025-02-16 11:39 | XMS_ITS | Encounter Summary ---
Author Organization [facility] Address [address] [place] [address] Phone Care Team Providers Care Microsoft Crm Developer Name Role Phone Valerei Grimaldo MD Primary Care Provider + [phone] Cody Polk MD Unavailable +[phone] Wen Nelson MD Unavailable José Miguel Alva MD Unavailable +[phone] Drew Martínez MD Unavailable +[phone] Lopez Nunez DO Unavailable [phone] Autumn Chapman OD Unavailable [phone] Alcon Camacho MD Unavailable +[phone] Tess Brennan MD Unavailable [phone] Tee Moura MD Unavailable [phone] Michel Linda MD Unavailable Verena Crespo MD Unavailable [phone] Unknown, Notinfile Primary Care Provider Unavail able Julian Encarnacion MD Primary Care Provider Encounter Details Date Type Department Care Team (Late st Contact Info) Description 09/08/2017 Orders Only [facility] Provider, MD [place] [address] [place] [address] Social History Tobacco Use Types Packs/Day Years Used Date Smoking Tobacco: Never Smokeless Tobacco: Never Alcohol Use Standard Drinks/Week Comments No 0 (1 standard drink = 0.6 oz pur e alcohol) Comments No Sex and Gender Information Value Date Recorded Sex Assigned at Not on file Legal Sex Female 11:50 PM FISCAL MANAGER Gender Identity Not on file Sexual [...] on filedocumented in this encounter Care Teams Microsoft Crm Developer Relationship Specialty Start Date End Date Valerie Grimaldo MD PCP - General 09/27/16 03/16/20 Unknown, Notinfile PCP - General 03/17/20 11/21/20 Julian Encarnacion MD 2 [facility] [address] [place] [address] PCP - General Family Medicine 11/22/20 [place] [address] [facility] [address] [place] [address] Pulmonary Disease 02/27/17 Wen Nelson MD [address] [place] [address] Obstetrics and Gynecology 02/27/17 José Miguel Alva MD [address] [facility] [address] [place] [address] Gynecologic Oncology 02/27/17 Drew Martínez MD [address] [place] [address] Orthopedic Surgery 02/27/17 Lopez Nunez DO [address] [place] [address] Consulting Physician Gastroenterology 04/25/17 Autumn Chapman OD [address] [place] [address] Optometry 04/28/17 [place] [address] [facility] [address] [place] [address] Consulting Physician Cardiology 09/07/17 Tess Brennan MD [address] [facility] [address] [address] Referring Physician Gastroenterology 09/25/17 Tee Moura MD [address] [facility] [address] [address] Referring Physician Surgery 11/29/17 Michel Linda MD [address] [facility] [address] [address] Referring Physician General Surgery 03/11/19 Verena Crespo MD [address] [facility] [address] [address] Consulting Physician Nephrology 03/13/19 documented as of this encounter
--- NOTE | 2025-03-09 10:05 | WPDSLEEPSTUD ---
Sleep Study Date of Study: 02/16/25 <Irlanda Wilson MD - Last Filed: 03/17/25 19:52> Ordering Provider: Travis Torrez MD <Irlanda Wilson MD - Last Filed: 03/17/25 19:52> Interpreting Physician: Irlanda Wilson MD <Irlanda Wilson MD - Last Filed: 03/17/25 19:52> Sleep Study Type: Split Polysomnogram <Irlanda Wilson MD - Last Filed: 03/17/25 19:52> Height: 1.6 m <Irlanda Wlison MD - Last Filed: 03/17/25 19:52> Weight: 99.79 kg <Irlanda Wilson MD - Last Filed: 03/17/25 19:52> Body Mass Index: 38.9 <Irlanda Wilson MD - Last Filed: 03/17/25 19:52> 38.9 <Hanna Shelley DO - Last Filed: 03/17/25 14:54> Neck Circumference (inches): 16.5 <Irlanda Wilson MD - Last Filed: 03/17/25 19:52> [place]: 6 <Irlanda Wilson MD - Last Filed: 03/17/25 19:52> PMFSH Past Medical History Medical History: Medical History STELLA (obstructive sleep apnea) <Irlanda Wilson MD - Last Filed: 03/17/25 19:52> Family History Family History: Family History Unknown Diabetes mellitus Hypertension Heart disease <Irlanda Wilson MD - Last Filed: 03/17/25 19:52> Social History Social History: Social History Social History: Caffeine-soda Smoking status: Never smoker Second hand tobacco smoke exposure: Yes Alcohol intake: current Alcohol use details: rarely Substance use: never Substance use type: does not use Do You Feel Safe in your Home?: Yes Lack of Transportation: No Lack of Food: Never True Current Housing: I Have Housing Concerned About Future Housing: No Difficulty Paying Gas/Electric Bills: No Difficulty Paying for Meds: No Currently Unemployed: No Education: High School Diploma/GED Difficulty w/ Childcare or Family Care: No Living arrangements: with family Occupation/Education: retired 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 Gender identity (if verbalized by the patient): Female Spiritual care concerns: No Agree to blood products: Yes <Irlanda Wilson MD - Last Filed: 03/17/25 19:52> Medications Home Medications: Home Medications ?Medication ?Instructions ?Recorded ?Confirmed ?Type aspirin 81 mg tablet,delayed 81 mg PO DAILY 10/18/21 02/14/25 History release gabapentin 100 mg capsule See Rx Instructions .Route 07/26/24 02/14/25 Rx .COMPLEX #90 caps amlodipine 5 mg tablet mg PO 09/15/24 02/14/25 History furosemide 20 mg tablet See Rx Instructions .Route 09/16/24 02/14/25 Rx .COMPLEX #90 tabs metformin 500 mg tablet,extended See Rx Instructions .Route 09/16/24 02/14/25 Rx release 24 hr .COMPLEX #270 tabs metoprolol succinate 50 mg See Rx Instructions .Route 09/16/24 02/14/25 Rx tablet,extended release 24 hr .COMPLEX #90 tabs omeprazole 40 mg capsule,delayed See Rx Instructions .Route 09/16/24 02/14/25 Rx release .COMPLEX #90 caps rosuvastatin 40 mg tablet See Rx Instructions .Route 09/16/24 02/14/25 Rx .COMPLEX #90 tabs potassium chloride 10 mEq See Rx Instructions .Route 11/25/24 02/14/25 Rx tablet,extended release .COMPLEX #30 tabs irbesartan 300 mg tablet 300 mg PO DAILY 02/01/25 02/14/25 History blood sugar diagnostic (Contour #100 ea 02/03/25 02/14/25 Rx Test Strips) blood-glucose meter (Contour Meter) #1 ea 02/03/25 02/14/25 Rx lancets 31 gauge #100 ea 02/03/25 02/14/25 Rx insulin glargine 100 See Rx Instructions .Route 03/15/25 Rx unit-lixisenatide 33 mcg/mL .COMPLEX #15 mL subcutaneous pen (Soliqua 100/33) trazodone 50 mg tablet See Rx Instructions .Route 03/16/25 Rx .COMPLEX #90 tabs <Irlanda Wilson MD - Last Filed: 03/17/25 19:52> Assessment and Plan Assessment and Plan (1) STELLA (obstructive sleep apnea): Code(s): G47.33 - Obstructive sleep apnea (adult) (pediatric) <Irlanda Wilson MD - Last Filed: 03/17/25 19:52> Status: Acute <Irlanda Wilson MD - Last Filed: 03/17/25 19:52> Data The data obtained during this sleep study is adequate for interpretation. <Irlanda Wilson MD - Last Filed: 03/17/25 19:52> Certification This sleep study has been reviewed by a board certified sleep medicine physician. <Irlanda Wilson MD - Last Filed: 03/17/25 19:52>
--- NOTE | 2025-03-17 14:54 | P.SLEEP_ITS ---
Sleep Study Date of Study: 02/16/25 Ordering Provider: Travis Torrez MD Interpreting Physician: Hanna Shelley DO Sleep Study Type: Split Polysomnogram Height: 1.6 m Weight: 99.79 kg Body Mass Index: 38.9 Neck Circumference (inches): 16.5 [place]: 6 Reason for Sleep Study Trouble falling and staying asleep Sleep History The patient is a 75-year-old female that had a sleep study ordered by her primary care physician for evaluation of sleep apnea. The patient was previously diagnosed with sleep apnea but unsure of current use. The patient denies awakening from sleep short of breath. She denies awakening at night with heartburn, belching or cough. She frequently snores and is frequently loud enough that others complain. She occasionally has trouble sleeping when she has a cold. She denies waking up gasping for air throughout the night. She rarely has breathing problems at night observed by herself or others. She rarely sweats excessively at night. She denies having heart palpitations or irregular heartbeats during the night. She frequently falls asleep during the day but never while driving. She denies sleep paralysis and cataplexy. She denies having trouble at school or work due to sleepiness. She rarely experiences vivid dreamlike scenes upon awakening or falling asleep. She denies feeling afraid of going to sleep. She rarely has nightmares. She rarely remembers her dreams. She rarely has thoughts racing through her mind. She denies feeling sad, depressed or anxious. She occasionally has muscular tension. She rarely notices parts of her body jerk. She occasionally kicks during the night. She rarely has crawling and aching feelings in her legs and rarely has leg pain during the night. She denies grinding her teeth during sleep but will rarely awakened with morning jaw pain. She is occasionally bothered by pain during the day but rarely awakened by pain during the night. She occasionally wakes up feeling stiff in the morning. She occasionally wakes up with sore or achy muscles. She occasionally wakes up with pain in the neck, spine and other joints. She goes to bed at 11:00 p.m.. It takes 2-3 hours for her to fall asleep. She wakes up 2-3 times throughout the night to urinate and he can take anywhere from 15-60 minutes to fall back asleep. She wakes up at 6:00 a.m.. He typically gets 4-5 hours of sleep per night. She will stay in bed for 10-15 minutes after waking up. She currently lives alone. She denies consuming any caffeinated beverages within 2 hours of bedtime. She denies engaging in physical exercise before bedtime. She will watch television before falling asleep. She will take naps in afternoon or the evening and they are refreshing. She consumes 2-3 caffeinated beverages per day. She denies tobacco, alcohol and recreational drug use. [facility] Past Medical History Medical History STELLA (obstructive sleep apnea) Family History Family History Unknown Diabetes mellitus Hypertension Heart disease Social History Social History Social History: Caffeine-soda Smoking status: Never smoker Second hand tobacco smoke exposure: Yes Alcohol intake: current Alcohol use details: rarely Substance use: never Substance use type: does not use Do You Feel Safe in your Home?: Yes Lack of Transportation: No Lack of Food: Never True Current Housing: I Have Housing Concerned About Future Housing: No Difficulty Paying Gas/Electric Bills: No Difficulty Paying for Meds: No Currently Unemployed: No Education: High School Diploma/GED Difficulty w/ Childcare or Family Care: No Living arrangements: with family Occupation/Education: retired 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 Gender identity (if verbalized by the patient): Female Spiritual care concerns: No Agree to blood products: Yes Medications Home Medications ?Medication ?Instructions ?Recorded ?Confirmed ?Type aspirin 81 mg tablet,delayed 81 mg PO DAILY 10/18/21 0 02/14/25 History release gabapentin 100 mg capsule See Rx Instructions .Route 0 07/26/24 02/14/25 Rx .COMPLEX #90 caps amlodipine 5 mg tablet mg PO 09/15/24 02/14/25 Hist ory furosemide 20 mg tablet See Rx Instructions .Route 0 09/16/24 02/14/25 Rx .COMPLEX #90 tabs metformin 500 mg tablet,extended See Rx Instructions . Route 09/16/24 02/14/25 Rx release 24 hr .COMPLEX #270 tabs metoprolol succinate 50 mg See Rx Instructions .Route 09/16/24 02/14/25 Rx tablet,extended release 24 hr .COMPLEX #90 tabs omeprazole 40 mg capsule,delayed See Rx Instructions . Route 09/16/24 02/14/25 Rx release .COMPLEX #90 caps rosuvastatin 40 mg tablet See Rx Instructions .Route 0 09/16/24 02/14/25 Rx .COMPLEX #90 tabs potassium chloride 10 mEq See Rx Instructions .Route 0 11/25/24 02/14/25 Rx tablet,extended release .COMPLEX #30 tabs irbesartan 300 mg tablet 300 mg PO DAILY 02/01/25 History blood sugar diagnostic (Contour #100 ea 02/03/2502/14 Rx Test Strips) blood-glucose meter (Contour Meter) #1 ea 02/03/25 Rx lancets 31 gauge #100 ea 02/03/25 02/14/25 Rx insulin glargine 100 See Rx Instructions .Route 0 03/15/25 Rx unit-lixisenatide 33 mcg/mL .COMPLEX #15 mL subcutaneous pen (Soliqua 100/33) trazodone 50 mg tablet See Rx Instructions .Route 0 03/16/25 Rx .COMPLEX #90 tabs Sleep Procedure A full night split study using the [employer] multi-channel system recorded the standard physiologic parameters including EEG, EOG, submentalis EMG, anterior tibialis EMG, EKG, body position, nasal and oral airflow using nasal pressure sensor and thermistor.? Respiratory parameters of chest and abdominal movements were recorded with Respiratory Inductance Plethysmography belts. Oxygen saturation was recorded by pulse oximetry. Video monitoring was also performed. Sleep stages, periodic limb movements, and EEG arousals were scored in 30 second epochs according to the criteria of the AASM Scoring Manual. The Apnea-Hypopnea Index was calculated using [facility] guidelines for definition of hypopnea with 4% O2 desaturations while scoring respiratory events. Sleep Architecture During the diagnostic portion of the study, the total recording time was 203.0 minutes. The total sleep time was 173.0 minutes. Sleep latency was 10.0 minutes.? REM sleep was not achieved during this portion of the study. Sleep Efficiency was 85.2%. The patient had 6 awakenings for an awakening index of 2.1. Wake after sleep onset time was 20.0 minutes. The patient spent 16.0 minutes, 9.2% of total sleep time in Stage N1. The patient spent 157.0 minutes, 90.8% in Stage N2. The patient spent 0.0 minutes, 0.0% in Stage N3. The patient spent 0.0 minutes, 0.0% in Stage REM sleep. At 01:43:20 AM the patient was placed on PAP treatment and was titrated at pres sures ranging from 5 cm H20 up to 7 cm H20. During the treatment portion of the study, the total recording time was 259.0 minutes.? The total sleep time was 226.5 minutes. Sleep latency was 6.0 minutes. REM latency was 65.0 minutes. Sleep Efficiency was 87.5%. Wake after Sleep Onset time was 26.0 minutes. The patient spent 18.5 minutes, 8.2% of total sleep time in Stage N1. The patient spent 150.0 minutes, 66.2% in Stage N2. The patient spent 0.0 minutes, 0.0% in Stage N3. The patient spent 58.0 minutes, 25.6% in Stage REM. Respiratory Analysis During the diagnostic portion of the study, the patient had 25 hypopneas and 1 obstructive apnea for an overall Apnea Hypopnea Index of 9.0 events per hour. The REM Apnea Hypopnea Index was 0. The NREM Apnea Hypopnea Index was 9.0. The patient had a Central Apnea Hypopnea Index of 0. There was no evidence of Moustapha-Lincoln Respirations. During the treatment portion of the study, the patient had 6 hypopneas and 1 central apnea for an overall Apnea Hypopnea Index of 1.9 events per hour. The REM Apnea Hypopnea Index was 4.1. The NREM Apnea Hypopnea Index was 1.1. The patient had a Central Apnea Hypopnea Index of 0.3. There was no evidence of Moustapha-Lincoln Respirations. The patient was started on CPAP 5 cm H2O and titrated to CPAP 7 cm H2O due to hypopneas. The patient was able to fall asleep starting on CPAP 5 cm H2O. The patient was able to achieve REM sleep starting on CPAP 5 cm H2O. The patient was able to achieve a residual AHI less than 5 on the first 2 pressure settings. On CPAP 5 cm H2O, the patient spent 79.5 minutes in NREM and 48.5 minutes in REM with 1 central apnea and 2 hypopneas, resulting in an AHI of 1.4. On CPAP 6 cm H2O, the patient spent 65 minutes in NREM with 1 hypopnea, resulting in an AHI of 0.9. The patient had a sleep efficiency of 91.1% on 5 cm H2O and 94.9% on 6 cm H2O. Arousals During the diagnostic portion of the study, there were a total of 35 arousals for an arousal index of 12.1.? There were 6 respiratory arousals for an index of 2.1. There were 4 periodic limb movement arousals for an index of 1.4.? There were 6 isolated limb movement arousals for an index of 2.1. There were 19 spontaneous arousals for an index of 6.6. During the treatment portion of the study, there were a total of 31 arousals for an index of 8.2.? There were 0 respiratory arousals for an index of 0. There were 3 periodic limb movement arousals for an index of 0.8.? There were 6 isolated limb movement arousals for an index of 1.6. There were 22 spontaneous arousals for an index of 5.8. Periodic Limb Movements During the diagnostic portion of the study, the patient had 10 isolated limb movements with an index of 3.5. The patient had 8 periodic limb movements with an index of 2.8. The patient had a total of 18 limb movements with a total limb movement index of 6.2. During the treatment portion of the study, the patient had 24 isolated limb movements with an index of 6.4. The patient had 34 periodic limb movements with an index of 9.0. The patient had a total of 58 limb movements with a total limb movement index of 15.4. Oximetry Data During the diagnostic portion of the study, the patient had an average oxygen saturation of 91.1% in wake with a minimum oxygen saturation of 85% and a maximum oxygen saturation of 96%. The patient had an average oxygen saturation of 88.4% in sleep with a minimum oxygen saturation of 82.0% and a maximum oxygen saturation of 94.0%. The patient had 32 oxygen desaturations resulting in an Oxygen Desaturation Index of 11.1. The patient spent 103 minutes, 52.2% of total sleep time with an oxygen saturation less than 88%. During the treatment portion of the study, the patient had an average oxygen saturation of 93.6% in wake with a minimum oxygen saturation of 87.0% and a maximum oxygen saturation of 97.0%. The patient had an average oxygen saturation of 92.5% in sleep with a minimum oxygen saturation of 86.0% and a maximum oxygen saturation of 97.0%. The patient had 10 oxygen desaturations resulting in an Oxygen Desaturation Index of 2.6. The patient spent 1.3 minutes, 0.5% of total sleep time with an oxygen saturation less than 88%. Snoring Profile Mild to moderate snoring was present in the baseline portion of the study. The snoring resolved once the patient was titrated to CPAP 7 cm H2O. Cardiac Profile The EKG lead showed normal sinus rhythm with frequent PVCs and bigeminy. During the diagnostic portion of the study, the average pulse rate was 58.1 bpm.? The minimum pulse rate was 46.0 bpm. The maximum pulse rate was 71.0 bpm. During the treatment portion of the study, the average pulse rate was 51.9 bpm.? The minimum pulse rate was 39.0 bpm. The maximum pulse rate was 66.0 bpm. EEG Profile No signs of seizure activity seen. Assessment and Plan Assessment and Plan (1) STELLA (obstructive sleep apnea): Code(s): G47.33 - Obstructive sleep apnea (adult) (pediatric) Status: Acute Assessment and Plan: In the baseline portion of the study, the patient had an overall AHI of 9.0 with desaturation down to 85%. This is consistent with mild sleep apnea. Due to the patient's diabetes, she qualifies for treatment. The patient was started on CPAP 5 cm H2O and titrated to CPAP 7 cm H2O due to hypopneas. I recommend that the patient be prescribed CPAP 6 cm H2O, size small ResMed AirFit N30 nasal mask, CPAP filters/tubing and heated humidity. This should be used with all episodes of sleep.? Compliance should be reviewed within 31-90 days of starting therapy for usage greater than 4 hours per night greater than 70% of the nights. The patient should be asked about symptoms such as?excessive daytime sleepiness, quality of sleep, decreased nocturia, increased?mental functioning such as memory, mood, and concentration. Data The data obtained during this sleep study is adequate for interpretation. Certification This sleep study has been reviewed by a board certified sleep medicine physician.
[2025-03-21 14:35] VITALS: BMI 38.9
== END 2025-02-17 07:24 | disposition home or self-care (01) ==
LOC: ANHCSM 11:03
PROVIDERS: PCP Otolaryngology; Visit Provider Family Medicine
DX: G47.33 Obstructive sleep apnea (adult) (pediatric) (principal)
CPT/HCPCS: 95811

== ENCOUNTER 2025-03-24 06:55 | Outpatient (CLI) | payer MEDICARE, SELFPAY ==
--- OUTSIDE RECORDS SUMMARY | 2007-03-09 05:04 | XMS_ITS | Continuity of Care Document ---
Author Organization [facility] Address [address] [place] [address] Phone Care Team Providers Care Senior Marketing Coordinator Name Role Phone Aline FRIEDMAN MD, Julian Unavailable Unavaila ble Procedures Procedure Date Work/medical disability examination I Moises Herman Record Review X-ray exam of knee, 3 views Advance Directives Directive Yes / No Effective Date File Name No Information Encounters Encounter Description Practice Location Reason(s) For Visit Diagnoses Date Provider Providers Copied on Encounter Work/medical disability examination I Moises Herman [facility], [address] [address], [place], [place], [id number], [place] tel:[phone] [facility] No Information 0200 7 Aline Jordan. [address] [facility] [address], [place], [place], [id number] , [place]. tel:[phone] Family History Family Member Type Diagnosis Age At Onset No Information Payers Payer name Insurance type Covered green party ID Authoriza tiarmani(s) [facility] [id number] Social History Type Description Quantity Date Captured Comments Sex Female Smoking Status No Information Chief Complaint And Reason For Visit No Information Reason For Referral Reason For Referral No Information History Of Present Illness Encounter Date Complaint History Of Prese nt Illness No Information Functional Status Date Functional Assessmen t No Information Instructions Date Instruction Additional Infor mation No Information Assessments Type Assessment Date No Information Patient Care Teams Name Effective Dates (start - stop) Status Members No Information
--- OUTSIDE RECORDS SUMMARY | 2025-03-24 06:58 | XMS_ITS | Encounter Summary ---
Author Organization [facility] Address [address] [place] [address] Phone Care Team Providers Care Catalyst Supervisor Name Role Phone Valerie Grimaldo MD Primary Care Provider + [phone] Cody Polk MD Unavailable [phone] Wen Nelson MD Unavailable [phone] José Miguel Alva MD Unavailable Drew Martínez MD Unavailable [phone] Lopez Nunez DO Unavailable [phone] Autumn Chapman OD Unavailable [phone] Alcon Camacho MD Unavailable [phone] Tess Brennan MD Unavailable [phone] Tee Moura MD Unavailable [phone] Michel Linda MD Unavailable Verena Crespo MD Unavailable [phone] Unknown, Notinfile Primary Care Provider Unavail able Julian Encarnacion MD Primary Care Provider Encounter Details Date Type Department Care Team (Late st Contact Info) Description 09/05/2017 Orders Only [facility] [address] [place] [address] Valerie Grimaldo MD [address] [place] [address] Social History Tobacco Use Types Packs/Day Years Used Date Smoking Tobacco: Never Smokeless Tobacco: Never Alcohol Use Standard Drinks/Week Comments No 0 (1 standard drink = 0.6 oz pur e alcohol) Comments No Sex and Gender Information Value Date Recorded Sex Assigned at Not on file Legal Sex Female 11:50 PM AURICULAR THERAPIST Gender Identity Not on file Sexual Orientation Not on file documented as of this encounter Plan of Treatment Not on file documented as of this encounter Procedures Procedure Name Priority Date/Time Associated Diagnosis Comments SCAN - RADIOLOGY/IMAGING 09/05/2017 10:47 AM AURICULAR THERAPIST documented in this encounter Results * SCAN - RADIOLOGY/IMAGING (09/05/2017 10:47 AM AURICULAR THERAPIST) Anatomical Region Laterality Modality Other Valerie Grimaldo MD Final Resu lt documented in this encounter Visit Diagnoses Not on filedocumented in this encounter Care Teams Catalyst Supervisor Relationship Specialty Start Date End Date Valerie Grimaldo MD PCP - General 09/27/16 03/16/20 Unknown, Notinfile PCP - General 03/17/20 11/21/20 Julian Encarnacion MD [address] [address] [place] [address] PCP - General Family Medicine 11/22/20 [place] [address] [facility] [address] [place] [address] Pulmonary Disease 02/27/17 Wen Nelson MD [address] [place] [address] Obstetrics and Gynecology 02/27/17 José Miguel Alva MD [address] [facility] [address] [place], [place] [id number] Gynecologic Oncology 02/27/17 Drew Martínez MD [address] [place] [address] Orthopedic Surgery 02/27/17 Lopez Nunez DO [address] [place] [address] Consulting Physician Gastroenterology 04/25/17 Autumn Chapman OD [address] [place] [address] Optometry 04/28/17 [place] [address] [facility] [address] [place] [address] Consulting Physician Cardiology 09/07/17 Tess Brennan MD 2 [facility] [address] Referring Physician Gastroenterology 09/25/17 Tee Moura MD 2 [facility] [address] Referring Physician Surgery 11/29/17 Michel Linda MD 2 [facility] [address] Referring Physician General Surgery 03/11/19 Verena Crespo MD [address] [facility] [address] [address] Consulting Physician Nephrology 03/13/19 documented as of this encounter
--- OUTSIDE RECORDS SUMMARY | 2025-03-24 06:58 | XMS_ITS | Encounter Summary ---
Author Organization [facility] Address [address] [place] [address] Phone Care Team Providers Care Manager Fund Name Role Phone Julian Encarnacion MD Primary Care Provider Travis Torrez MD Primary Care Provider Carolee Tay APRN, FOOD AND NUTRITION PROFESSOR Unavailable Reason for Visit * Reason Comments Medication Refill Encounter Details Date Type Department Care Team (Late st Contact Info) Description 07/20/2021 Refill [facility] - [facility] [address] [place] [address] Julian Encarnacion MD [address] [address] Medication Refill Social History Tobacco Use Types [...] (GLUCOPHAGE-XR) 500 MG TABLET SR 24 HR [[id number]] 1031 Status: Active Ordering user: Julian Encarnacion MD 11/15/20 103 Authorized by: Julian Encarnacion MD Frequency: ??11/15/20 - Until Discontinued Released by: Julian Encarnacion MD 11/15/20 103 [id number] INUOUS LINTER DRIER OPERATOR documented in this encounter Plan of Treatment Upcoming Encounters Date Type Department Care Team (Late st Contact Info) Description 08/15/2025 10:00 AM CONTINUOUS LINTER DRIER OPERATOR Office Visit [facility] - Cardiology - [place] [address] [place] [address] Carolee Tay APRN, FOOD AND NUTRITION PROFESSOR [address] [place] [address] documented as of this encounter Visit Diagnoses Not on filedocumented in this encounter Additional Health Concerns Infection Onset Date Last Indicated Resolved Time COVID - 19 07/20/2024 07/20/2024 07/20/2024 3:10 AM CONTINUOUS LINTER DRIER OPERATOR Assessment Noted Time PHQ-9 Depression Total Score: 0 04/24/20 10:39 AM CDT documented as of this encounter Care Teams Manager Fund Relationship Specialty Start Date End Date Julian Encarnacion MD [address] [address] PCP - General Family Medicine 03/28/20 04/23/22 Travis Torrez MD #[address] [address] PCP - General Family Medicine 05/21/22 Carolee Tay APRN, FOOD AND NUTRITION PROFESSOR [address] [place] [id number] Nurse Practitioner Certified Nurse Practitioner 08/20/24 documented as of this encounter
--- OUTSIDE RECORDS SUMMARY | 2025-03-24 06:58 | XMS_ITS | Encounter Summary ---
Author Organization [facility] Address [address] [place] [address] Phone Care Team Providers Care Style Advisor Name Role Phone Valerie Grimaldo MD Primary Care Provider + [phone] Cody Polk MD Unavailable Wen Nelson MD Unavailable [phone] José Miguel Alva MD Unavailable [phone] Drew Martínez MD Unavailable [phone] Lopez Nunez DO Unavailable [phone] Autumn Chapman OD Unavailable [phone] Alcon Camacho MD Unavailable [phone] Tess Brennan MD Unavailable [phone] Tee Moura MD Unavailable [phone] Mcihel Linda MD Unavailable Verena Crespo MD Unavailable [phone] Unknown, Notinfile Primary Care Provider Unavail able Julain Encarnacion MD Primary Care Provider Encounter Details Date Type Department Care Team (Late st Contact Info) Description 12/20/2016 Orders Only [facility] [address] [place] [address] Lisa Romano LPN Social History Tobacco Use Types Packs/Day Years Used Date Smoking Tobacco: Never Alcohol Use Standard Drinks/Week Comments No 0 (1 standard drink = 0.6 oz pur e alcohol) Comments Unknown Sex and Gender Information Value Date Recorded Sex Assigned at Not on file Legal Sex Female 11:50 PM FRONT LINE SUPERVISOR Gender Identity Not on file Sexual Orientation Not on file documented as of this encounter Plan of Treatment Not on file documented as of this encounter Visit Diagnoses Not on filedocumented in this encounter Care Teams Style Advisor Relationship Specialty Start Date End Date Valerie Grimaldo MD PCP - General 09/27/16 03/16/20 Unknown, Notinfile PCP - General 03/17/20 11/21/20 Julian Encarnacion MD 2 [facility] [address] [place] [address] PCP - General Family Medicine 11/22/20 [place] [address] [facility] [address] [place] [address] Pulmonary Disease 02/27/17 Wen Nelson MD [address] [place] [address] Obstetrics and Gynecology 02/27/17 José Miguel Alva MD [address] [facility] [address] [place] [address] Gynecologic Oncology 02/27/17 Drew Martínez MD [address] [place] [address] Orthopedic Surgery 02/27/17 Lopez Nunez DO [address] [address] Consulting Physician Gastroenterology 04/25/17 Autumn Chapman OD [address] [place] [address] Optometry 04/28/17 [place] [address] [facility] [address] [place] [address] Consulting Physician Cardiology 09/07/17 Tess Brennan MD [address] [facility] [address] [address] Referring Physician Gastroenterology 09/25/17 Tee Moura MD [address] [facility] [address] [address] Referring Physician Surgery 11/29/17 Michel Linda MD 2 [facility] [address] [address] Referring Physician General Surgery 03/11/19 Verena Crespo MD [address] [facility] [address] [address] Consulting Physician Nephrology 03/13/19 documented as of this encounter
--- OUTSIDE RECORDS SUMMARY | 2025-03-24 06:58 | XMS_ITS | Encounter Summary ---
Author Organization [facility] Address [address] [place] [address] Phone Care Team Providers Care Strike Operations Officer Name Role Phone Julian Encarnacion MD Primary Care Provider [phone] Travis Torrez MD Primary Care Provider Carolee Tay APRN, IRON PLASTIC BULLET MAKER Unavailable Reason for Visit * Reason Comments Medication Refill Encounter Details Date Type Department Care Team (Late st Contact Info) Description 08/06/2021 Refill [facility] - Family Medicine [facility] #2 [place] [address] Julian Encarnacion MD #[address] [address] Medication Refill Social History Tobacco Use Types [...] Autumn Patino RN - 08/07/2021 2:23 PM INDUSTRIAL ENGINEERING INTERN Patient is not wanting an appointment, just wanted enough medication until she could see her new Dr. STRIAL ENGINEERING INTERN * Telephone Encounter - Kenyetta Moran RMA - 08/07/2021 2:13 PM INDUSTRIAL ENGINEERING INTERN Left voicemail STRIAL ENGINEERING INTERN * Telephone Encounter - Dominique Conway RN - 08/07/2021 10:38 AM CST Provider requests patient appointment STRIAL ENGINEERING INTERN * Telephone Encounter - Dominique Conway RN [...] Dept 02/21/21 Office Visit Julian Encarnacion MD [facility] [place] Showing recent visits within past 182 days and meeting all other requirements Future Appointments No visits were found meeting these conditions. Showing future appointments within next 90 days and meeting all other requirements STRIAL ENGINEERING INTERN documented in this encounter Plan of Treatment Upcoming Encounters Date Type Department Care Team (Late st Contact Info) Description 08/15/2025 10:00 AM INDUSTRIAL ENGINEERING INTERN Office Visit [facility] - Cardiology - [place] [address] [place] [address] Carolee Tay APRN, IRON PLASTIC BULLET MAKER [address] [place] [address] documented as of this encounter Visit Diagnoses Not on filedocumented in this encounter Additional Health Concerns Infection Onset Date Last Indicated Resolved Time COVID - 19 07/20/2024 07/20/2024 07/20/2024 3:10 AM INDUSTRIAL ENGINEERING INTERN Assessment Noted Time PHQ-9 Depression Total Score: 0 04/24/20 10:39 AM CDT documented as of this encounter Care Teams Strike Operations Officer Relationship Specialty Start Date End Date Julian Encarnacion MD [address] [address] PCP - General Family Medicine 03/28/20 04/23/22 Travis Torrez MD [address] [address] PCP - General Family Medicine 05/21/22 Carolee Tay APRN, KIM [address] [place] [address] Nurse Practitioner Certified Nurse Practitioner 08/20/24 documented as of this encounter
--- OUTSIDE RECORDS SUMMARY | 2025-03-24 06:58 | XMS_ITS | Encounter Summary ---
Author Organization [facility] Address [address] [place] [address] Phone Care Team Providers Care Housing Director Name Role Phone Julian Encarnacion MD Primary Care Provider Travis Torrez MD Primary Care Provider [phone] Carolee Tay APRN, MEDICATION ADMINISTRATION PROFESSIONAL Unavailable Reason for Visit * Reason Comments Medication Refill Encounter Details Date Type Department Care Team (Late st Contact Info) Description 11/14/2020 Refill [facility] - [facility] Medicine [facility] #2 [place] [address] Julian Encarnacion MD #[address] [address] Medication Refill Social History Tobacco Use Types [...] Dept 10/18/20 Office Visit Julian Encarnacion MD [facility] [place] 07/20/20 Office Visit Julian Encarnacion MD [facility] [place] 06/08/20 Office Visit Julian Encarnacion MD [facility] [place] Showing recent visits within past 182 days and meeting all other requirements Future Appointments Date Type Provider Dept 01/17/21 Appointment Julian Encarnacion MD [facility] [place] Showing future appointments within next 90 days and meeting all other requirements Passed - HgA1C on record in past 6 months HGB-A1C Date Value Ref Range Status 10/18/2020 7.0 % Final documented in this encounter Plan of Treatment Upcoming Encounters Date Type Department Care Team (Late st Contact Info) Description 08/15/2025 10:00 AM SENIOR CARE PROVIDER Office Visit [facility] - Cardiology - [place] #2 [place] [address] Carolee aTy APRN, MEDICATION ADMINISTRATION PROFESSIONAL [address]2 [place] [address] documented as of this encounter Visit Diagnoses Not on filedocumented in this encounter Additional Health Concerns Infection Onset Date Last Indicated Resolved Time COVID - 19 07/20/2024 07/20/2024 07/20/2024 3:10 AM SENIOR CARE PROVIDER Assessment Noted Time PHQ-9 Depression Total Score: 0 04/24/20 20 10:39 AM CDT documented as of this encounter Care Teams Housing Director Relationship Specialty Start Date End Date Julian Encarnacion MD [address] [address] PCP - General Family Medicine 03/28/20 04/23/22 Travis Torrez MD #[address] [address] PCP - General Family Medicine 05/21/22 Carolee Tay APRN, MEDICATION ADMINISTRATION PROFESSIONAL [facility] [place] [address] Nurse Practitioner Certified Nurse Practitioner 08/20/24 documented as of this encounter
--- OUTSIDE RECORDS SUMMARY | 2025-03-24 06:58 | XMS_ITS | Encounter Summary ---
Author Organization [facility] Address [address] [place] [address] Phone Care Team Providers Care Upset Operator Name Role Phone Julian Encarnacion MD Primary Care Provider Travis Torrez MD Primary Care Provider Carolee Tay APRN, PAINT SPRAY INSPECTOR Unavailable Reason for Visit * Reason Comments Medication Refill Encounter Details Date Type Department Care Team (Late st Contact Info) Description 06/20/2021 Refill [facility] - Family Medicine [facility] #2 [place] [address] Julian Encarnacion MD #[address] [address] Medication Refill Social History Tobacco Use Types [...] Kenyetta Moran RMA - 06/27/2021 10:55 AM ELECTRONIC SERVICE TECHNICIAN Left voicemail TRONIC SERVICE TECHNICIAN * Telephone Encounter - Dominique Conway RN - 06/26/2021 10:52 AM CST Patient needs appointment TRONIC SERVICE TECHNICIAN * Telephone Encounter - Carola Patiño MA - 06/25/2021 3:43 PM ELECTRONIC SERVICE TECHNICIAN Message left on Medication refill voice mail: Patient would like to know why the doctor has refusedher pain medication (Ty#3) ? See previous message from 06/21/21 . Please call patient @[phone] TRONIC SERVICE TECHNICIAN * Telephone Encounter - Kenyetta Moran RMA - 06/21/2021 11:19 AM ELECTRONIC SERVICE TECHNICIAN Left voicemiail TRONIC SERVICE TECHNICIAN * Telephone Encounter - Dominique Conway RN - 06/20/2021 3:56 PM CST PCP requests patient appointment TRONIC SERVICE TECHNICIAN * Telephone Encounter - Dominique Conway RN [...] Dept 02/21/21 Office Visit Julian Encarnacion MD [facility] [place] 10/18/20 Office Visit [facility] MD [facility] [place] 07/20/20 Office Visit Julian Encarnacion MD [facility] [place] Showing recent visits within past 365 days and meeting all other requirements Future Appointments No visits were found meeting these conditions. Showing future appointments within next 90 days and meeting all other requirements TRONIC SERVICE TECHNICIAN documented in this encounter Plan of Treatment Upcoming Encounters Date Type Department Care Team (Late st Contact Info) Description 08/15/2025 10:00 AM ELECTRONIC SERVICE TECHNICIAN [facility] Visit [facility] - [facility] - [place] [address]2 [place] [address] Carolee Tay APRN, PAINT SPRAY INSPECTOR [address]2 [place] [address] documented as of this encounter Visit Diagnoses Diagnosis Arthralgia, unspecified joint documented in this encounter Additional Health Concerns Infection Onset Date Last Indicated Resolved Time COVID - 19 07/20/2024 07/20/2024 07/20/2024 3:10 AM ELECTRONIC SERVICE TECHNICIAN Assessment Noted Time PHQ-9 Depression Total Score: 0 04/24/20 20 10:39 AM CDT documented as of this encounter Care Teams Upset Operator Relationship Specialty Start Date End Date Julian Encarnacion MD #[address] [address] PCP - General Family Medicine 03/28/20 04/23/22 Travis Torrez MD #[address] [address] PCP - General Family Medicine 05/21/22 Carolee Tay APRN, PAINT SPRAY INSPECTOR #2 [place] [address] Nurse Practitioner Certified Nurse Practitioner 08/20/24 documented as of this encounter
--- OUTSIDE RECORDS SUMMARY | 2025-03-24 06:58 | XMS_ITS | Encounter Summary ---
Author Organization [facility] Address [address] [place] [address] Phone Care Team Providers Care Devops Engineer Name Role Phone Julian Encarnacion MD Primary Care Provider Travis Torrez MD Primary Care Provider Carolee Tay APRN, INDIRECT SALES EXEC Unavailable Reason for Visit * Reason Comments Medication Refill Encounter Details Date Type Department Care Team (Late st Contact Info) Description 05/17/2021 Refill [facility] - Family Medicine [facility] #2 [place] [address] Julian Encarnacion MD #[address] [address] Medication Refill Social History Tobacco Use Types [...] 05/17/2021 10:12 AM CST Prescription pending signature LLOFACIAL PROSTHETICS DENTIST * Telephone Encounter - Dominique Conway RN [...] Visits 2 months ago Arthralgia, unspecified joint [facility] - Julian Hines MD 7 months ago Type 2 diabetes mellitus without complication, with long-term current use of insulin ([facility] Julian Graham MD 10 months ago Type 2 diabetes mellitus without complication, with long-term current use of insulin ([facility]) [facility] Julian Graham MD 11 months ago Hematemesis, presence of nausea not specified [facility] Julian Graham MD 1 year ago Hematemesis, presence of nausea not specified [facility] Julian Graham MD Upcoming Appointments ESTIMATE CLERK - Recent and Past Visits Recent [...] [place] 02/18/20 Office Visit Aletha Anand PAC [facility] [place] Showing recent visits within past 460 days with a meds authorizing provider and meeting all other requirements Future Appointments No visits were found meeting these conditions. Showing future appointments within next 90 days with a meds authorizing provider and meeting all other requirements LLOFACIAL PROSTHETICS DENTIST documented in this encounter Plan of Treatment Upcoming Encounters Date Type Department Care Team (Late st Contact Info) Description 08/15/2025 10:00 AM MAXILLOFACIAL PROSTHETICS DENTIST Office Visit [facility] - [facility]iology - [place] #2 [place] [address] Carolee Tay APRN, INDIRECT SALES EXEC [address]2 [place] [address] documented as of this encounter Visit Diagnoses Diagnosis Arthralgia, unspecified joint documented in this encounter Additional Health Concerns Infection Onset Date Last Indicated Resolved Time COVID - 19 07/20/2024 07/20/2024 07/20/2024 3:10 AM MAXILLOFACIAL PROSTHETICS DENTIST Assessment Noted Time PHQ-9 Depression Total Score: 0 04/24/20 20 10:39 AM CDT documented as of this encounter Care Teams Devops Engineer Relationship Specialty Start Date End Date Julian Encarnacion MD #[address] [address] PCP - General Family Medicine 03/28/20 04/23/22 Travis Torrez MD #[address] [address] PCP - General Family Medicine 05/21/22 Carolee Tay APRN, KIM #2 [place] [address] Nurse Practitioner Certified Nurse Practitioner 08/20/24 documented as of this encounter
--- OUTSIDE RECORDS SUMMARY | 2025-03-24 06:58 | XMS_ITS | Encounter Summary ---
Author Organization [facility] Address [address] [place] [address] Phone Care Team Providers Care Jack Spooler Tender Name Role Phone Valerie Grimaldo MD Primary Care Provider + [phone] Cody Polk MD Unavailable [phone] Wen Nelson MD Unavailable José Miguel Alva MD Unavailable [phone] Drew Martínez MD Unavailable [phone] Lopez Nunez DO Unavailable [phone] Autumn Chapman OD Unavailable [phone] Alcon Camacho MD Unavailable [phone] Tess Brennan MD Unavailable [phone] Tee Moura MD Unavailable [phone] Michel Linda MD Unavailable Verena Crespo MD Unavailable [phone] Unknown, Notinfile Primary Care Provider Unavail able Julian Encarnacion MD Primary Care Provider Encounter Details Date Type Department Care Team (Late st Contact Info) Description 11/07/2017 Orders Only [facility] Provider, MD Tayler [address] [place] [address] Social History Tobacco Use Types Packs/Day Years Used Date Smoking Tobacco: Never Smokeless Tobacco: Never Alcohol Use Standard Drinks/Week Comments No 0 (1 standard drink = 0.6 oz pur e alcohol) Comments No Sex and Gender Information Value Date Recorded Sex Assigned at Not on file Legal Sex Female 11:50 PM TELEPHONE SALES AGENT Gender Identity Not on file Sexual Orientation [...] on filedocumented in this encounter Care Teams Jack Spooler Tender Relationship Specialty Start Date End Date Valerie Grimaldo MD PCP - General 09/27/16 03/16/20 Unknown, Notinfile PCP - General 03/17/20 11/21/20 Julian Encarnacion MD [address] [address] PCP - General Family Medicine 11/22/20 [place] [address] [facility] [address] [place] [address] Pulmonary Disease 02/27/17 Wen Nelson MD [address] [place] [address] Obstetrics and Gynecology 02/27/17 José Miguel Alva MD [address] [facility] [address] [place] [address] Gynecologic Oncology 02/27/17 Drew Martínez MD [address] [place] [address] Orthopedic Surgery 02/27/17 Lopez Nunez DO [address] [place] [address] Consulting Physician Gastroenterology 04/25/17 Autumn Chapman OD [address] [place] [address] Optometry 04/28/17 [place] [address] [facility] [address] [place] [address] Consulting Physician Cardiology 09/07/17 Tess Brennan MD [address] [address] Referring Physician Gastroenterology 09/25/17 Tee Moura MD [address] [address] Referring Physician Surgery 11/29/17 Michel Linda MD [address] [address] Referring Physician General Surgery 03/11/19 Verena Crespo MD [address] [facility] [place] [address] [place] [address] Consulting Physician Nephrology 03/13/19 documented as of this encounter
--- OUTSIDE RECORDS SUMMARY | 2025-03-24 06:58 | XMS_ITS | Encounter Summary ---
Author Organization [facility] Address [address] [place] [address] Phone Care Team Providers Care Fence Gate Assembler Name Role Phone Valerie Grimaldo MD Primary Care Provider + [phone] Cody Polk MD Unavailable [phone] Wen Nelson MD Unavailable José Miguel Alva MD Unavailable [phone] Drew Martínez MD Unavailable [phone] Lopez Nunez DO Unavailable [phone] Autumn Chapman OD Unavailable [phone] Alcon Camacho MD Unavailable [phone] Tess Brennan MD Unavailable [phone] Tee Moura MD Unavailable [phone] Michel Linda MD Unavailable Verena Crespo MD Unavailable [phone] Unknown, Notinfile Primary Care Provider Unavail able Julian Encarnacion MD Primary Care Provider [phone] Encounter Details Date Type Department Care Team (Late st Contact Info) Description 09/05/2017 Orders Only [facility] Provider, MD Tayler [address] [place] [address] Social History Tobacco Use Types Packs/Day Years Used Date Smoking Tobacco: Never Smokeless Tobacco: Never Alcohol Use Standard Drinks/Week Comments No 0 (1 standard drink = 0.6 oz pur e alcohol) Comments No Sex and Gender Information Value Date Recorded Sex Assigned at Not on file Legal Sex Female 11:50 PM OUTREACH ASSISTANT Gender Identity Not on file Sexual Orientation Not on file documented as of this encounter Plan of Treatment Not on file documented as of this encounter Procedures Procedure Name Priority Date/Time Associated Diagnosis Comments DISCHARGE LABORATORY CUMULATIVE REPORT 09/05/2017 12:00 AM OUTREACH ASSISTANT documented in this encounter Results * DISCHARGE LABORATORY CUMULATIVE REPORT (09/05/2017 12:00 AM OUTREACH ASSISTANT) Narrative 09/05/2017 12:00 AM OUTREACH ASSISTANT Ordered by an unspecified provider. us Historical Provider LAB BLOOD ORDERABLES Soledad l Result documented in this encounter Visit Diagnoses Not on filedocumented in this encounter Care Teams Fence Gate Assembler Relationship Specialty Start Date End Date Valerie Grimaldo MD PCP - General 09/27/16 03/16/20 Unknown, Notinfile PCP - General 03/17/20 11/21/20 Julian Encarnacion MD 2 [facility] [address] [place] [address] PCP - General Family Medicine 11/22/20 [place] [address] [facility] [address] [place] [address] Pulmonary Disease 02/27/17 Wen Nelson MD [address] [place] [address] Obstetrics and Gynecology 02/27/17 José Miguel Alva MD [address] [facility] [address] [place] [address] Gynecologic Oncology 02/27/17 Drew Martínez MD [address] [facility] [address] [place] [address] Orthopedic Surgery 02/27/17 Lopez Nunez DO [address] [facility] [address] [place] [address] Consulting Physician Gastroenterology 04/25/17 Autumn Chapman OD [address] [place] [address] Optometry 04/28/17 [place] [address] [facility] [address] [place] [address] Consulting Physician Cardiology 09/07/17 Tess Brennan MD [address] [address] [address] Referring Physician Gastroenterology 09/25/17 Tee Moura MD [address] [address] [address] Referring Physician Surgery 11/29/17 Michel Linda MD [address] [address] [address] Referring Physician General Surgery 03/11/19 Verena Crespo MD [address] [address] [address] Consulting Physician Nephrology 03/13/19 documented as of this encounter
--- OUTSIDE RECORDS SUMMARY | 2025-03-24 06:58 | XMS_ITS | Encounter Summary ---
Author Organization [facility] Address [address] [place] [address] Phone Care Team Providers Care Manager Database Administration Name Role Phone Julian Encarnacion MD Primary Care Provider Travis Torrez MD Primary Care Provider Carolee Tay APRN, NON PROFIT JOB TITLES Unavailable Reason for Visit * Reason Comments Medication Refill Encounter Details Date Type Department Care Team (Late st Contact Info) Description 01/12/2021 Refill [facility] - Family Medicine [facility] #2 [place] [address] Julian Encarnacion MD #[address] [address] Medication Refill Social History Tobacco Use Types [...] long-term current use of insulin ([facility]) [facility] - Julian Hines MD 5 months ago Type 2 diabetes mellitus without complication, with long-term current use of insulin ([facility]) [facility] - Julian Hines MD 7 months ago Hematemesis, presence of nausea not specified [facility] Medical [facility] Julian Hines MD 8 months ago Hematemesis, presence of nausea not specified [facility] Julian Hines MD 9 months ago Preop cardiovascular exam [facility] Julian Graham MD Upcoming Appointments Future Appointments In 5 days Julian Encarnacion MD [facility], [facility] In 1 month Cristina Garcia APN, KIM [facility] Oncology Services, [facility] MILK WAGON DRIVER - Recent and Past Visits Recent Visits Date Type Provider Dept 10/18/20 Office Visit Julian Encarnacion MD [facility] [place] 07/20/20 Office Visit Julian Encarnacion MD [facility] [place] 06/08/20 Office [facility] 05/10/20 Office Visit Julian Encarnacion MD [facility] 03/23/20 Office Visit Julian Encarnacion MD [facility] 02/18/20 [facility] Show[facility] recent visits within past 460 days with a meds authorizing provider and meeting all other requirements Future Appointments Date Type Provider Dept 01/17/21 Appointment [facility] Showing future appointments within next 90 days with a meds authorizing provider and meeting all other requirements documented in this encounter Plan of Treatment Upcoming Encounters Date Type Department Care Team (Late st Contact Info) Description 08/15/2025 10:00 AM NOTCHER Office Visit [facility] - Cardiology - [place] #2 [place] [address] Carolee Tay APRN, KIM #2 [place] [address] documented as of this encounter Visit Diagnoses Not on filedocumented in this encounter Additional Health Concerns Infection Onset Date Last Indicated Resolved Time COVID - 19 07/20/2024 07/20/2024 07/20/2024 3:10 AM NOTCHER Assessment Noted Time PHQ-9 Depression Total Score: 0 04/24/20 10:39 AM CDT documented as of this encounter Care Teams Manager Database Administration Relationship Specialty Start Date End Date Julian Encarnacion MD #[address] [address] PCP - General Family Medicine 03/28/20 04/23/22 Travis Torrez MD #[address] [address] PCP - General Family Medicine 05/21/22 Carolee Tay APRN, NON PROFIT JOB TITLES #2 [place] [address] Nurse Practitioner Certified Nurse Practitioner 08/20/24 documented as of this encounter
--- OUTSIDE RECORDS SUMMARY | 2025-03-24 06:58 | XMS_ITS | Encounter Summary ---
Author Organization [facility] Address [address] [place] [address] Phone Care Team Providers Care Retail Salesman Name Role Phone Travis Torrez MD Primary Care Provider [phone] Carolee Tay APRN, DIRECTOR ASSET Unavailable Reason for Visit * Reason Comments Medication Refill Encounter Details Date Type Department Care Team (Late Contact Info) Description 03/06/2023 Refill [facility] - Family Medicine [facility] #2 [place] [address] Julian Encarnacion MD #[address] [address] Medication Refill Social History Tobacco Use Types [...] st Contact Info) Description 08/15/2025 10:00 AM VENEER TRIMMER Office Visit [facility] Medical [facility] - Cardiology [facility] #2 [place] [address] Carolee Tay APRN, DIRECTOR ASSET #[address] [place] [address] documented as of this encounter Visit Diagnoses Not on filedocumented in this encounter Additional Health Concerns Infection Onset Date Last Indicated Resolved Time COVID - 19 07/20/2024 07/20/2024 07/20/2024 3:10 AM VENEER TRIMMER Assessment Noted Time PHQ-9 Depression Total Score: 0 04/24/20 10:39 AM CDT documented as of this encounter Care Teams Retail Salesman Relationship Specialty Start Date End Date Travis Torrez MD PCP - General Family Medicine 05/21/22 Carolee Tay APRN, DIRECTOR ASSET [address] [place] [address] Nurse Practitioner Certified Nurse Practitioner 08/20/24 documented as of this encounter
--- OUTSIDE RECORDS SUMMARY | 2025-03-24 06:58 | XMS_ITS | Encounter Summary ---
Author Organization [facility] Address [address] [place] [address] Phone Care Team Providers Care Merchandise Flow Team Member Name Role Phone Julian Encarnacion MD Primary Care Provider Travis Torrez MD Primary Care Provider [phone] Carolee Tay APRN, CLINICAL STAFF ANESTHESIOLOGIST Unavailable Reason for Visit * Reason Comments Medication Refill Encounter Details Date Type Department Care Team (Late st Contact Info) Description 10/16/2020 Refill [facility] - Family Medicine [facility] #2 [place] [address] Julian Encarnacion MD #[address] [address] Medication Refill Social History Tobacco Use Types [...] with long-term current use of insulin (HCC) [facility] Family [facility] - Julian Hines MD 4 months ago Hematemesis, presence of nausea not specified [facility] Julian Graham MD 5 months ago Hematemesis, presence of nausea not specified [facility] Julian Graham MD 6 months ago Preop cardiovascular exam [facility] Julian Graham MD 8 months ago Coronary artery disease with angina pectoris, unspecified vessel or lesion type, unspecified whether [place] or transplanted heart (HCC) [facility] Family [facility] - Aletha Benson, CAITLIN Upcoming Appointments Future Appointments Tomorrow Julian Encarnacion MD [facility] - [place], [facility] In 6 days Cristina Garcia APN, CLINICAL STAFF ANESTHESIOLOGIST [facility] - Cancer Center Oncology Services, [facility] In [address] VACCINE CL[facility]IC [facility] Family [facility] - [facility] VOLTMETER OPERATOR - Recent and Past Visits Recent Visits Date Type Provider Dept 07/20/20 Office Visit Julian Encarnacion MD [facility] [place] 06/08/20 Office Visit Julian Encarnacion MD [facility] 05/10/20 Office Visit Julian Encarnacion MD [facility] 03/23/20 Office Visit Julian Encarnacion MD [facility] 02/18/20 [facility] visits within past 460 days with a meds authorizing provider and meeting all other requirements Future Appointments Date Type Provider Dept 10/18/20 Appointment Julian Encarnacion MD [facility] Showing future appointments within next 90 days with a meds authorizing provider and meeting all other requirements documented in this encounter Plan of Treatment Upcoming Encounters Date Type Department Care Team (Late st Contact Info) Description 08/15/2025 10:00 AM BILL RECAPITULATION CLERK Office Visit [facility] - Cardiology - [place] #2 [place] [address] Carolee Tay APRN, CLINICAL STAFF ANESTHESIOLOGIST [address] [place] [address] documented as of this encounter Visit Diagnoses Not on filedocumented in this encounter Additional Health Concerns Infection Onset Date Last Indicated Resolved Time COVID - 19 07/20/2024 07/20/2024 07/20/2024 3:10 AM BILL RECAPITULATION CLERK Assessment Noted Time PHQ-9 Depression Total Score: 0 04/24/20 10:39 AM CDT documented as of this encounter Care Teams Merchandise Flow Team Member Relationship Specialty Start Date End Date Julian Encarnacion MD [address] [place] [address] PCP - General Family Medicine 03/28/20 04/23/22 Travis Torrez MD #[address] [place] [address] PCP - General Family Medicine 05/21/22 Carolee Tay APRN, CLINICAL STAFF ANESTHESIOLOGIST [address] [place] [address] Nurse Practitioner Certified Nurse Practitioner 08/20/24 documented as of this encounter
--- OUTSIDE RECORDS SUMMARY | 2025-03-24 06:58 | XMS_ITS | Encounter Summary ---
Author Organization [facility] Address [address] [place] [address] Phone Care Team Providers Care Mold Technician Name Role Phone Julian Encarnacion MD Primary Care Provider [phone] Travis Torrez MD Primary Care Provider [phone] Carolee Tay APRN, ASSEMBLER UTILITY BUILDINGS Unavailable Reason for Visit * Reason Comments Medication Refill Encounter Details Date Type Department Care Team (Late st Contact Info) Description 04/05/2021 Refill [facility] - Family Medicine [facility] #2 [place] [address] Julian Encarnacion MD #[address] [address] Medication Refill Social History Tobacco Use Types [...] Visits 1 month ago Arthralgia, unspecified joint [facility] Julian Hines MD 5 months ago Type 2 diabetes mellitus without complication, with long-term current use of insulin ([facility] Julian Graham MD 8 months ago Type 2 diabetes mellitus without complication, with long-term current use of insulin ([facility]) [facility] Julian Graham MD 10 months ago Hematemesis, presence of nausea not specified [facility] Julian Graham MD 11 months ago Hematemesis, presence of nausea not specified [facility] Julian Graham MD Upcoming Appointments CHILD PROTECTIVE INVESTIGATOR - Recent and Past Visits Recent Visits Date Type Provider Dept 02/21/21 Office Visit Julian Encarnacion MD [facility] 10/18/20 Office Visit Julian Encarnacion MD [facility] 07/20/20 Office Visit Julian Encarnacion MD [facility] 06/08/20 Office Visit Julian Encranacion MD [facility] 05/10/20 Office Visit Julian [...] st Contact Info) Description 08/15/2025 10:00 AM MECHANIC AND WELDER Office Visit [facility] - Cardiology - [place] [address]2 [place] [address] Carolee Tay APRN, ASSEMBLER UTILITY BUILDINGS [address] [place] [address] documented as of this encounter Visit Diagnoses Diagnosis Arthralgia, unspecified joint documented in this encounter Additional Health Concerns Infection Onset Date Last Indicated Resolved Time COVID - 19 07/20/2024 07/20/2024 07/20/2024 3:10 AM MECHANIC AND WELDER Assessment Noted Time PHQ-9 Depression Total Score: 0 04/24/20 10:39 AM CDT documented as of this encounter Care Teams Mold Technician Relationship Specialty Start Date End Date Julian Encarnacion MD #2 [facility] [place] [address] PCP - General Family Medicine 03/28/20 04/23/22 Travis Torrez MD #2 [facility] [place] [address] PCP - General Family Medicine 05/21/22 Carolee Tay APRN, KIM [address] [place] [address] Nurse Practitioner Certified Nurse Practitioner 08/20/24 documented as of this encounter
--- OUTSIDE RECORDS SUMMARY | 2025-03-24 06:58 | XMS_ITS | Encounter Summary ---
Author Organization [facility] Address [address] [place] [address] Phone Care Team Providers Care Chief Procurement Officer Name Role Phone Julian Encarnacion MD Primary Care Provider Trvais Torrez MD Primary Care Provider Carolee Tay APRN, QUALITY SPECIALIST Unavailable Reason for Visit * Reason Comments Medication Refill Encounter Details Date Type Department Care Team (Late st Contact Info) Description 12/08/2020 Refill [facility] - Anticoagulation Clinic [facility] #2 [place] [address] Julian Encarnacion MD #[address] [address] Medication Refill Social History Tobacco Use Types [...] st Contact Info) Description 08/15/2025 10:00 AM PRECISION LENS POLISHER Office Visit [facility] - Cardiology [facility] [address] [place] [address] Carolee Tay APRN, QUALITY SPECIALIST #[address] [place] [address] documented as of this encounter Visit Diagnoses Not on filedocumented in this encounter Additional Health Concerns Infection Onset Date Last Indicated Resolved Time COVID - 19 07/20/2024 07/20/2024 07/20/2024 3:10 AM PRECISION LENS POLISHER Assessment Noted Time PHQ-9 Depression Total Score: 0 04/24/20 10:39 AM CDT documented as of this encounter Care Teams Chief Procurement Officer Relationship Specialty Start Date End Date Julian Encarnacion MD [id number] [address] PCP - General Family Medicine 03/28/20 04/23/22 Travis Torrez MD #[address] [address] PCP - General Family Medicine 05/21/22 Carolee Tay APRN, KIM [address] [place] [address] Nurse Practitioner Certified Nurse Practitioner 08/20/24 documented as of this encounter
--- OUTSIDE RECORDS SUMMARY | 2025-03-24 06:58 | XMS_ITS | Encounter Summary ---
Author Organization [facility] Address [address] [place] [address] Phone Care Team Providers Care Hand Singer Name Role Phone Julian Encarnacion MD Primary Care Provider Travis Torrez MD Primary Care Provider Carolee Tay APRN, ENROLLMENT NURSE Unavailable Reason for Visit * Reason Comments Medication Refill Encounter Details Date Type Department Care Team (Late st Contact Info) Description 02/15/2021 Refill [facility] - Family Medicine [facility] #2 [place] [address] Julian Encarnacion MD #[address] [address] Medication Refill Social History Tobacco Use Types [...] with long-term current use of insulin (HCC) [facility] - Julian Hines MD 7 months ago Type 2 diabetes mellitus without complication, with long-term current use of insulin (HCC) [facility] Julian Graham MD 8 months ago Hematemesis, presence of nausea not specified [facility] Julian Graham MD 9 months ago Hematemesis, presence of nausea not specified [facility] Julian Graham MD 10 months ago Preop cardiovascular exam [facility] Julian Graham MD Upcoming Appointments Future Appointments In 1 week Cristina Garcia, TRY OUT PERSON, ENROLLMENT NURSE [facility] - Cancer Center Oncology Services, [facility] SWITCHBOARD OPERATOR RECEPTIONIST - Recent and Past Visits Recent Visits Date Type Provider Dept 10/18/20 Office Visit [facility] MD [facility] 07/20/20 Office Visit [facility] MD [facility] 06/08/20 Office Visit Julian Encarnacion MD [facility] 05/10/20 Office Visit Julian Encarnacion MD [facility] [place] 03/23/20 Office Visit Julian Encarnacion MD [facility] [place] 02/18/20 Office Visit Aletha Anand, CAITLIN [facility] Showing recent visits within past 460 days [...] st Contact Info) Description 08/15/2025 10:00 AM BONSAI TENDER Office Visit [facility] - Cardiology [facility] #2 [place] [address] Carolee Tay APRN, ENROLLMENT NURSE [address] [place] [address] documented as of this encounter Visit Diagnoses Not on filedocumented in this encounter Additional Health Concerns Infection Onset Date Last Indicated Resolved Time COVID - 19 07/20/2024 07/20/2024 07/20/2024 3:10 AM BONSAI TENDER Assessment Noted Time PHQ-9 Depression Total Score: 0 04/24/20 10:39 AM CDT documented as of this encounter Care Teams Hand Singer Relationship Specialty Start Date End Date Julian Encarnacion MD #[address] [address] PCP - General Family Medicine 03/28/20 04/23/22 Travis Torrez MD #[address] [address] PCP - General Family Medicine 05/21/22 Carolee Tay APRN, ENROLLMENT NURSE [address] [place] [address] Nurse Practitioner Certified Nurse Practitioner 08/20/24 documented as of this encounter
--- OUTSIDE RECORDS SUMMARY | 2025-03-24 06:58 | XMS_ITS | Encounter Summary ---
Author Organization [facility] Address [address] [place] [address] Phone Care Team Providers Care Energy Operations Vice President Name Role Phone Valerie Grimaldo MD Primary Care Provider [phone] Cody Polk MD Unavailable [phone] Wen Nelson MD Unavailable José Miguel Alva MD Unavailable [phone] Drew Martínez MD Unavailable [phone] Lopez Nunez DO Unavailable [phone] Autumn Chapman OD Unavailable [phone] Alcon Camacho MD Unavailable [phone] Tess Brennan MD Unavailable [phone] Tee Moura MD Unavailable [phone] Michel Linda MD Unavailable Verena Crespo MD Unavailable [phone] Unknown, Notinfile Primary Care Provider Unavail able Julian Encarnacion MD Primary Care Provider Encounter Details Date Type Department Care Team (Late st Contact Info) Description 10/20/2017 Orders Only [facility] Provider, MD Tay[place] [address] [place] [address] Social History Tobacco Use Types Packs/Day Years Used Date Smoking Tobacco: Never Smokeless Tobacco: Never Alcohol Use Standard Drinks/Week Comments No 0 (1 standard drink = 0.6 oz pur e alcohol) Comments No Sex and Gender Information Value Date Recorded Sex Assigned at Not on file Legal Sex Female 11:50 PM ORDER SELECTOR Gender Identity Not on file Sexual [...] on filedocumented in this encounter Care Teams Energy Operations Vice President Relationship Specialty Start Date End Date Valerie Grimaldo MD PCP - General 09/27/16 03/16/20 Unknown, Notinfile PCP - General 03/17/20 11/21/20 Julian Encarnacion MD [address] [address] PCP - General Family Medicine 11/22/20 [place] [address] [facility] [address] [place] [address] Pulmonary Disease 02/27/17 Wen Nelson MD [address] [place] [address] Obstetrics and Gynecology 02/27/17 José Miguel Alva MD [address] [place] [address] Gynecologic Oncology 02/27/17 Drew Martínez MD [address] [place] [address] Orthopedic Surgery 02/27/17 Lopez Nunez DO [address] [place] [address] Consulting Physician Gastroenterology 04/25/17 Autumn Chapman OD [address] [place] [address] Optometry 04/28/17 [place] [address] [facility] [address] [place] [address] Consulting Physician Cardiology 09/07/17 Tess Brennan MD [address] [address] Referring Physician Gastroenterology 09/25/17 Tee Moura MD [address] [address] Referring Physician Surgery 11/29/17 Michel Linda MD [address] [address] Referring Physician General Surgery 03/11/19 Verena Crespo MD [address] [facility] [address] [place] [address] Consulting Physician Nephrology 03/13/19 documented as of this encounter
--- OUTSIDE RECORDS SUMMARY | 2025-03-24 06:58 | XMS_ITS | Clinical Summary ---
Author Organization [facility] Address [address], [address] [address] Phone Care Team Providers Care First Assistant Name Role Phone Travis Torrez MD Primary Care Provider Carolee Tay APRN, SUPERVISOR ENROBING Unavailable Allergies Active Allergy Reactions Criticality Noted [...] drink = 0.6 oz pur e alcohol) [facility] Utilities Answer Date Recorded In the past 12 months has e [employer], gas, oil, or water [employer] threatened to shut off services in your home? No 07/20/2024 Social Connection and Isolation Panel Answer Date Recorded In a typical week, how many times do you talk on the phone with family, friends, or neighbors? Patient declined 07/20/2024 How often do you get togethe r with friends or relatives? Patient declined 07/20/2024 How often do you attend roman catholic or zoroastrian serv ices? Patient declined 07/20/2024 Do you belong to any clubs o r organizations such as roman catholic groups, unions, fraternal or athletic groups, or [...] Total Score - Questions 1-9 0 03/31 [facility] of Occupat ional Health - Occupational Stress [...] any time in the past 12 m [facility], were you homeless or living in a mcfp (including now)? No 07/20/2024 Comments No Sex and Gender Information Value Date Recorded Sex Assigned at Not on file Legal Sex Female 7:37 PM CDT Gender Identity Not on file Sexual Orientation Not on file Last Filed Vital Signs Vital Sign Reading Time Taken Comments Blood Pressure 126/62 08/19/2024 3:01 PM PERSONNEL ADMINISTRATOR Pulse 81 08/19/2024 3:01 PM PERSONNEL ADMINISTRATOR Temperature 36.3 C (97.3 F) 08/19/2024 3:01 PM PERSONNEL ADMINISTRATOR Respiratory Rate 16 08/19/2024 3:01 PM PERSONNEL ADMINISTRATOR Oxygen Saturation 97% 08/19/2024 3:01 PM PERSONNEL ADMINISTRATOR Inhaled Oxygen Concentration - - Weight 105.2 kg (232 lb) 08/19/2024 3:01 PM PERSONNEL ADMINISTRATOR Height 157.5 cm (5' 2) 08/19/2024 3:01 PM PERSONNEL ADMINISTRATOR Body Mass Index 42.43 08/19/2024 3:01 PM PERSONNEL ADMINISTRATOR Plan of Treatment Upcoming Encounters Date Type Department Care Team (Late st Contact Info) Description 08/15/2025 10:00 AM PERSONNEL ADMINISTRATOR Office Visit [facility] [place] [address] [place] [phone] Carolee Tay, FLIGHT CREW ORDNANCEMAN, SUPERVISOR ENROBING [address] [place] [phone] Health Maintenance Due Date Last Done Comments Diabetes: Eye Exam 1950 Diabetes: Foot Exam 1950 Td Immunization Every 10 Years (Adults With 1 Tdap) 06/24/2021 06/24/2011, 09/23/2008 DEXA Bone Density 08/06/2024 08/06/2022, 04/30/2018 Diabetes: Hemoglobin A1c 01/17/2025 025, 04/29/2023, 10/18/2020, Additional history exists Influenza Immunization (#1) 02/28/202504/30, 05/12/2023, 03/23/2020, Additional history exists SARS-COV-2 Immunization ( season) 2025 10/25/2020, 09/26/2020 Diabetes: Nephropathy Screening 07/19/2025 07/19/2024, 04/29/2023, 10/18/2020, Additional history exists DTaP/Tdap/Td Immunization Discontinued 06/24/2011, Pneumococcal Immunization (50+ years) Completed 03/17/2015, 03/07/2014 Pneumococcal Immunization Combined Discontinued 03/17/2015, 03/07/2014 Hepatitis C Virus (HCV) Screening Completed 02/25/2019 Colorectal Cancer Screening Discontinued Immunochemical Fecal Occult Blood Discontinued 04/30/2020, 09/23/2017 Mammogram Discontinued 08/06/2022, 03/01, 03/08/2019, Additional history exists Respiratory Syncytial Virus (RSV) Immunization (Adult) Completed 08/14/2023 Zoster Immunization Completed 03/23/2024, 4 Cologuard Discontinued Colonoscopy Discontinued Hepatitis B Immunization Aged Out No longer [...] this topic Medical Devices Implanted Type Area Importer Or Exporter Device Identifier Shelf Expiration Date Model / Serial / Lot Stent Coronary Leta Xience Everolimus Eluting [id number] - [id number] Implanted:Qty: 1 on 04/23/2018 by Joan Avalos MD at [facility] IMPLANT N/A: Coronary [employer] 02/17/2019 [id number] Stent Coronary Leta Xience Everolimus Eluting [id number] - [id number] Implanted:Qty: 1 on 04/23/2018 by Joan Avalos MD at [facility] IMPLANT N/A: Coronary [employer] 01/15/2019 [id number] Procedures Procedure Name Priority Date/Time Associated Diagnosis Comments HEMOGLOBIN A1C W/ ESTIMATED GLUCOSE STAT 07/20/2024 5:18 AM PERSONNEL ADMINISTRATOR CMP (COMPREHENSIVE METABOLIC PANEL) STAT 07/19/2024 9:48 PM PERSONNEL ADMINISTRATOR [facility] SCREENING BILATERAL DIGITAL W CAD W HARLEEN Routine 08/06/2022 3:00 PM PERSONNEL ADMINISTRATOR Encounter for screening mammogram for malignant neoplasm of breast Asymptomatic menopausal state [facility] BONE DENSITOMETRY AXIAL SKELETON Routine 08/06/2022 2:30 PM PERSONNEL ADMINISTRATOR Encounter for screening mammogram for malignant neoplasm of breast Asymptomatic menopausal state STOOL, OCCULT BLOOD, DIAGNOSTIC, VIA GUAIAC STAT 04/30/2020 11:15 AM PERSONNEL ADMINISTRATOR HEPATITIS PANEL ACUTE (AHP) Routine 02/25/2019 3:42 AM CDT from Last 3 Months or Most Recently Relevant to Health Maintenance Results * (ABNORMAL) Hemoglobin A1C w/ Estimated Glucose (07/20/2024 5:18 AM PERSONNEL ADMINISTRATOR) Pathologist [facility] HGB-A1C 6.3(H) 4.0 - 6.0 % 07/20/2024 5:57 AM PERSONNEL ADMINISTRATOR [facility] Est Average Glucose 134.1 mg/dL 07/20/2024 5:57 AM [facility] Blood Venipuncture / Unknown 07/20/2024 5:18 AM PERSONNEL ADMINISTRATOR 07/20/2024 5:37 AM PERSONNEL ADMINISTRATOR Narrative [facility] - 07/20/2024 5:57 AM PERSONNEL ADMINISTRATOR HEMOGLOBIN A1C: DIABETIC PATIENTS: WELL-CONTROLLED: 6.2 - 7.0 INTERMEDIATE WELL-CONTROLLED: 7.0 - 9.0 POORLY-CONTROLLED: >9.0 Specimens containing greater than 5% of Hemoglobin F may result in lower than expected % HbA1C results. Elsa Nevarez FLIGHT CREW ORDNANCEMAN, SUPERVISOR ENROBING CHEMISTRY ORDERABLES Final Result [facility] [address] [place] [address] * (ABNORMAL) CMP (Comprehensive Metabolic Panel) (07/19/2024 9:48 PM PERSONNEL ADMINISTRATOR) Pathologist [facility] SODIUM 140 136 - 145 mmol/L 07/19/2024 10:34 PM PERSONNEL ADMINISTRATOR [facility] POTASSIUM 4.3 3.5 - 5.1 mmol/L 07/19/2024 10:34 PM PERSONNEL ADMINISTRATOR [facility] CHLORIDE 108(H) 98 - 107 mmol/L 07/19/2024 10:34 PM [facility] CO2, VENOUS 23 22 - 30 mmol/L 07/19/2024 10:34 PM [facility] ANION GAP 13.3 <18.0 mmol/L 07/19/2024 10:34 PM [facility] GLUCOSE 188(H) 70 - 99 mg/dL 07/19/2024 10:34 PM [facility] BUN 28(H) 10 - 20 mg/dL 07/19/2024 10:34 PM [facility] CREATININE, BLOOD 2.17(H) 0.60 - 1.00 mg/dL 07/19/2024 10:34 PM [facility] BUN/CREATININE RATIO 13 12 - 20 ratio 07/19/2024 10:34 PM [facility] TOTAL PROTEIN 7.3 6.0 - 8.0 g/dL 07/19/2024 10:34 PM [facility] ALBUMIN 3.7 3.5 - 5.0 g/dL 07/19/2024 10:34 PM [facility] A/G RATIO 1.0 1.0 - 2.2 07/19/2024 10:34 PM [facility] CALCIUM 10.1 8.7 - 10.5 mg/dL 07/19/2024 10:34 PM [facility] T BILI 0.5 0.2 - 1.2 mg/dL 07/19/2024 10:34 PM [facility] SGOT (AST) 17 6 - 42 U/L 07/19/2024 10:34 PM [facility] SGPT (ALT) 7 6 - 55 U/L 07/19/2024 10:34 PM [facility] ALKALINE PHOSPHATASE 93 40 - 150 U/L 07/19/2024 10:34 PM [facility] GFR, ESTIMATED 23(L) >=60 07/19/2024 10:34 PM [facility] Comment: Creatinine Clearance is the preferred criteria for selecting drug dose adjustments in renally impaired patients. The GFR is provided as additional pertinent clinical information. GFR is reported in mL/min/1.73 sq m. Calculation based on the Chronic Kidney Disease Epidemiology Collaboration (CKD- EPI) equation refit without adjustment for race. GFR, EST. 27(L) >=60 025 10:34 PM [facility] GFR, EST. NONAFRICAN 22(L) >=60 07/19/2024 10:34 PM PERSONNEL ADMINISTRATOR [facility] Blood Venipuncture / Unknown 07/19/2024 9:48 PM PERSONNEL ADMINISTRATOR 07/19/2024 10:08 PM PERSONNEL ADMINISTRATOR us Oswaldo Sue MD CHEMISTRY ORDERABLES Final Result [facility] [address] [place] [address] * DUY SCREENING BILATERAL DIGITAL W CAD W HARLEEN (08/06/2022 3:00 PM PERSONNEL ADMINISTRATOR) Anatomical Region Laterality Modality breast Bilateral Mammography 08/06/2022 3:12 PM PERSONNEL ADMINISTRATOR Narrative 08/07/2022 3:59 PM PERSONNEL ADMINISTRATOR - DUY SCREENING BILATERAL DIGITAL W CAD [...] to exams dated: 03/28/2020, 09/02/2019, 03/08/2019, 01/01/2018 [facility], 10/30/2017, and 10/27/2017 [facility]. BREAST TISSUE:There are scattered fibroglandular densities [...] exam. Electronically signed by: Dafne urena/penrad:08/07/2022 11:22:27 Dobie Worker(s): SONI Lao)(Sergey), [facility] letter sent: Normal Exam Reading location: [place] BI-RADS: 2 Benign Procedure Note Dafne Cordero MD - 08/07/2022 - DUY SCREENING BILATERAL DIGITAL W CAD W HARLEEN BILATERAL DIGITAL SCREENING MAMMOGRAM 3D/2D WITH CAD WITH MEDIOLATERAL OBLIQUE CRANIOCAUDAL: 08/06/2022 The study was acquired using digital technology and interpreted from soft copy. Current study was also evaluated with [employer] version 7.2. 2D digital mammographic views, as well as 3D digital tomosynthesis were performed in the CC and MLO projections. CLINICAL: Routine screening. Patient has no complaints. Personal history of uterine cancer. Maternal cousin had breast cancer. COMPARISONS: Comparison is made to exams dated: 03/28/2020, 09/02/2019, 03/08/2019, 01/01/2018 [facility], 10/30/2017, and 10/27/2017 [facility]. BREAST TISSUE:There are scattered fibroglandular densities [...] exam. Electronically signed by: Dafne urena/penrad:08/07/2022 11:22:27 Dobie Worker(s): RT Shilo(R)(M), [facility] letter sent: Normal Exam Reading location: [place] BI-RADS: 2 Benign us Travis Torrez MD IMG MAMMO ORDERABLES Final Resu lt * [facility] BONE DENSITOMETRY AXIAL SKELETON (08/06/2022 2:30 PM PERSONNEL ADMINISTRATOR) Anatomical Region Laterality Modality BODY N/A Computed Radiogr aphy 08/07/2022 6:48 AM PERSONNEL ADMINISTRATOR Impressions 08/07/2022 6:51 AM PERSONNEL ADMINISTRATOR IMPRESSION: Low bone mass REFERENCE: Bone mineral [...] of Osteoporosis (http://www.nof.org/professionals/clinical-guidelines) Narrative 08/07/2022 6:51 AM PERSONNEL ADMINISTRATOR EXAM DESCRIPTION: [facility] BONE DENSITOMETRY AXIAL SKELETON REASON FOR STUDY: 72 y/o year old F with given history of screening. Importer Or Exporter/Model: Buck ([id number]/N [id number]) CLINICAL INFORMATION: Current height: 62 inches Maximum [...] by Brinda Neal M.D. TW: Report ID: [id number] Reading Location: [place] [address] Procedure Note Brinda Neal MD - 08/07/2022 EXAM DESCRIPTION: DUY BONE DENSITOMETRY AXIAL SKELETON REASON FOR STUDY: 72 y/o year old F with given history of screening. Importer Or Exporter/Model: Buck ([id number]/N [id number]) CLINICAL INFORMATION: Current height: 62 inches Maximum [...] by Brinda Neal M.D. TW: Report ID: [id number] Reading Location: [place] [address] IMPRESSION: Low bone mass REFERENCE: Bone mineral [...] Occult Blood - Diagnostic (04/30/2020 11:15 AM PERSONNEL ADMINISTRATOR) Pathologist [facility] OCCULT BLOOD DIAG Positive(A ) Negative 04/30/2020 11:53 AM PERSONNEL ADMINISTRATOR [facility] Stool Non-Phlebotomy Collection / Unknown 04/30/2020 11:15 AM PERSONNEL ADMINISTRATOR 04/30/2020 11:41 AM PERSONNEL ADMINISTRATOR Leland Rowan MD BODY FLUIDS & STOOLS ORDERABLES Final Result [facility] [address] [place] [address] * Hepatitis Panel Acute (AHP)-BELÉN (02/25/2019 3:42 AM CDT) [facility] HEPATITIS A IGM ANTIBODY NON DETECTED NON DETECTED 02/25/2019 3:20 PM CDT [facility] Comment: IGM Antibodies to HAV not detected. Does not exclude early acute or recovered HAV infection. HEP B CORE AB (IGM) NON DETECTED NON DETECTED 02/25/2019 3:20 PM CDT [facility] Comment: IGM anti-HBC not detected. Does not exclude the possibility of exposure to or infection with HBV. HEPATITIS B SURFACE ANTIGEN NON DETECTED NON DETECTED 02/25/2019 3:20 PM CDT [facility] Comment: A nonreactive test result [...] 0.12 <1 S/CO 02/25/2019 3:20 PM CDT [facility] Comment: Signal/Cutoff ratio < 0.79 is Nondetected Signal/Cutoff ratio 0.80-0.99 is Grayzone Signal/Cutoff ratio > 0.99 is Detected Supplemental assays are recommended if signal/cutoff ratio is >/=1.00. Signal/cutoff ratio result >/= 5.00 is 97% predictive of positivity for recombinant immunoblot assay (RIBA) and will be reported to the [place] Department of Public Health as required. Blood specimen (specimen) Butterfly Puncture / Unknown 02/25/2019 3:42 AM CDT 02/25/2019 3:42 AM CDT us Verena Crespo MD HEMATOLOGY ORDERABLES F inal Result [facility] [address] [place] [address], from Last 3 Months or Most Recently Relevant to Health Maintenance Insurance MEDICARE C [facility] Advance Directives Documents on File Type Date Recorded Patient Lay Midwife Expl anation Advance Care Planning Discussion 05/10/2020 [...] measures to stabilize the patient. Care Teams First Assistant Relationship Specialty Start Date End Date Travis Torrez MD PCP - General Family Medicine 05/21/22 Carolee Tay, FLIGHT CREW ORDNANCEMAN, SUPERVISOR ENROBING [address] [place] [address] Nurse Practitioner Certified Nurse Practitioner 08/20/24
--- OUTSIDE RECORDS SUMMARY | 2025-03-24 06:58 | XMS_ITS | Encounter Summary ---
Author Organization [facility] Address [address] [place] [address] Phone Care Team Providers Care Holiday Detector Operator Name Role Phone Julian Encarnacion MD Primary Care Provider [phone] Travis Torrez MD Primary Care Provider Carolee Tay APRN, TECHNICAL TRAINING INSTRUCTOR Unavailable Reason for Visit * Reason Comments Medication Refill Encounter Details Date Type Department Care Team (Late st Contact Info) Description 12/04/2020 [facility]ill [facility] [address] [place] [address] Julian Encarnacion MD [address] [address] Medication Refill Social History Tobacco Use Types [...] pending signature * Telephone Encounter - Dominique oCnway RN - 12/05/2020 11:16 AM CDT [place] [...] complication, with long-term current use of insulin ([facility]) [facility] Julian Hines MD 4 months ago Type 2 diabetes mellitus without complication, with long-term current use of insulin ([facility]) [facility] Julian Graham MD 6 months ago Hematemesis, presence of nausea not specified [facility] Julian Graham MD 6 months ago Hematemesis, presence of nausea not specified [facility] Julian Graham MD 8 months ago Preop cardiovascular exam [facility] Julian Graham MD Upcoming Appointments Future Appointments In 1 month Julian Encarnacion MD [facility] [place] In 2 months Cristina Garcia APN, TECHNICAL TRAINING INSTRUCTOR [facility] Oncology Services, [facility] ALUMINUM BOATS ASSEMBLER - Recent and Past Visits Recent Visits Date Type Provider Dept 10/18/20 Office Visit Julian Encarnacion MD [facility] 07/20/20 Office Visit Julian Encarnacion MD [facility] 06/08/20 Office Visit Julian Encarnacion MD [facility] 05/10/20 Office Visit Julian Encarnacion MD [facility] 03/23/20 Office Visit Julian Encarnacion MD [facility] [place] 02/18/20 Office Visit Aletha Anand PAC [facility] Showing recent visits within past 460 days with a meds authorizing provider and meeting all other requirements Future Appointments Date Type Provider Dept 01/17/21 Appointment Julian Encarnacion MD [facility] [place] Showing future appointments within next 90 days with a meds authorizing provider and meeting all other requirements documented in this encounter Plan of Treatment Upcoming Encounters Date Type Department Care Team (Late st Contact Info) Description 08/15/2025 10:00 AM AC/DC REWINDER [facility] Visit [facility] [place] [address] [place] [address] Carolee Tay APRN, TECHNICAL TRAINING INSTRUCTOR [address] [place] [address] documented as of this encounter Visit Diagnoses Not on filedocumented in this encounter Additional Health Concerns Infection Onset Date Last Indicated Resolved Time COVID - 19 07/20/2024 07/20/2024 07/20/2024 3:10 AM AC/DC REWINDER Assessment Noted Time PHQ-9 Depression Total Score: 0 04/24/20 20 10:39 AM CDT documented as of this encounter Care Teams Holiday Detector Operator Relationship Specialty Start Date End Date Julian Encarnacion MD [address] [address] PCP - General Family Medicine 03/28/20 04/23/22 Travis Torrez MD #[address] [address] PCP - General Family Medicine 05/21/22 Carolee Tay APRN, TECHNICAL TRAINING INSTRUCTOR [address] [place] [address] Nurse Practitioner Certified Nurse Practitioner 08/20/24 documented as of this encounter
--- OUTSIDE RECORDS SUMMARY | 2025-03-24 06:58 | XMS_ITS | Encounter Summary ---
Author Organization [facility] Address [address] [place] [address] Phone Care Team Providers Care Senior Power Scheduler Name Role Phone Valerie Grimaldo MD Primary Care Provider + [phone] Cody Polk MD Unavailable [phone] Wen Nelson MD Unavailable José Miguel Alva MD Unavailable [phone] Drew Martínez MD Unavailable [phone] Lopez Nunez DO Unavailable [phone] Autumn Chapman OD Unavailable [phone] Alcon Camacho MD Unavailable [phone] Tess Brennan MD Unavailable [phone] Tee Moura MD Unavailable [phone] Michel Linda MD Unavailable Verena Crespo MD Unavailable [phone] Unknown, Notinfile Primary Care Provider Unavail able Julian Encarnacion MD Primary Care Provider [phone] Encounter Details Date Type Department Care Team (Late st Contact Info) Description 10/27/2017 Orders Only [facility] Provider, MD [place] [address] [place] [address] Social History Tobacco Use Types Packs/Day Years Used Date Smoking Tobacco: Never Smokeless Tobacco: Never Alcohol Use Standard Drinks/Week Comments No 0 (1 standard drink = 0.6 oz pur e alcohol) Comments No Sex and Gender Information Value Date Recorded Sex Assigned at Not on file 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 Gender Identity Not on file Sexual Orientation [...] filedocumented in this encounter Care Teams Senior Power Scheduler Relationship Specialty Start Date End Date Valerie Grimaldo MD PCP - General 09/27/16 03/16/20 Unknown, Notinfile PCP - General 03/17/20 11/21/20 Julian Encarnacion MD [address] [address] PCP - General Family Medicine 11/22/20 [place] [address] [facility] [address] [place] [address] Pulmonary Disease 02/27/17 Wen Nelson MD [address] [place] [address] Obstetrics and Gynecology 02/27/17 José Miguel Alva MD [address] [facility] [address] [place] [address] Gynecologic Oncology 02/27/17 Drew Martínez MD [address] [place] [address] Orthopedic Surgery 02/27/17 Lopez Nunez DO [address] [place] [address] Consulting Physician Gastroenterology 04/25/17 Autumn Chapman OD [address] [place] [address] Optometry 04/28/17 [place] [address] [facility] [address] [place] [address] Consulting Physician Cardiology 09/07/17 Tess Brennan MD [address] [facility] [address] Referring Physician Gastroenterology 09/25/17 Tee Moura MD [address] [address] Referring Physician Surgery 11/29/17 Michel Linda MD [address] [address] [address] Referring Physician General Surgery 03/11/19 Verena Crespo MD [address] [facility] [address] [place] [address] Consulting Physician Nephrology 03/13/19 documented as of this encounter
--- OUTSIDE RECORDS SUMMARY | 2025-03-24 06:58 | XMS_ITS | Encounter Summary ---
Author Organization [facility] Address [address] [place] [address] Phone Care Team Providers Care Forest Fire Fighter Name Role Phone Valerie Grimaldo MD Primary Care Provider + [phone] Cody Polk MD Unavailable Wen Nelson MD Unavailable José Miguel Alva MD Unavailable [phone] Drew Martínez MD Unavailable [phone] Lopez Nunez DO Unavailable [phone] Autumn Chapman OD Unavailable [phone] Alcon Camacho MD Unavailable [phone] Tess Brennan MD Unavailable [phone] Tee Moura MD Unavailable [phone] Michel Linda MD Unavailable Verena Crespo MD Unavailable [phone] Unknown, Notinfile Primary Care Provider Unavail able Julian Encarnacion MD Primary Care Provider Encounter Details Date Type Department Care Team (Late st Contact Info) Description 01/16/2017 Orders Only [facility] [address] [place] [address] Valerie Grimaldo MD [address] [place] [address] Diabetes mellitus without complication (HCC) (Primary Dx) Social History Tobacco Use Types Packs/Day Years Used Date Smoking Tobacco: Never Alcohol Use Standard Drinks/Week Comments No 0 (1 standard drink = 0.6 oz pur e alcohol) Comments Unknown Sex and Gender Information Value Date Recorded Sex Assigned at Not on file Legal Sex Female 11:50 PM MANAGER TRAINING Gender Identity Not on file Sexual Orientation [...] uncontrolled documented in this encounter Care Teams Forest Fire Fighter Relationship Specialty Start Date End Date Valerie Grimaldo MD PCP - General 09/27/16 03/16/20 Unknown, Notinfile PCP - General 03/17/20 11/21/20 Julian Encarnacion MD 2 [facility] [address] [place] [address] PCP - General Family Medicine 11/22/[address] [place] [address] [facility] [address] [place] [address] Pulmonary Disease 02/27/17 Wen Nelson MD [address] [place] [address] Obstetrics and Gynecology 02/27/17 José Miguel Alva MD [address] [facility] [address] [place] [address] Gynecologic Oncology 02/27/17 Drew Martínez MD [address] [facility] [address] [place] [address] Orthopedic Surgery 02/27/17 Lopez Nunez DO [address] [place] [address] Consulting Physician Gastroenterology 04/25/17 Autumn Chapman OD [address] [place] [address] Optometry 04/28/[address] [place] [address] [facility] [address] [place] [address] Consulting Physician Cardiology 09/07/17 Tess Brennan MD 2 [facility] [address] [address] Referring Physician Gastroenterology 09/25/17 Tee Moura MD [address] [facility] [address] [address] Referring Physician Surgery 11/29/17 Michel Linda MD [address] [facility] [address] [address] Referring Physician General Surgery 03/11/19 Verena Crespo MD [address] [facility] [place] [address] [address] Consulting Physician Nephrology 03/13/19 documented as of this encounter
--- OUTSIDE RECORDS SUMMARY | 2025-03-24 06:58 | XMS_ITS | Encounter Summary ---
Author Organization [facility] Address [address] [place] [address] Phone Care Team Providers Care Cotton Weigher Name Role Phone Valerie Grimaldo MD Primary Care Provider + [phone] Cody Polk MD Unavailable +[phone] Wen Nelson MD Unavailable José Miguel Alva MD Unavailable +[phone] Drew Martínez MD Unavailable +[phone] Lopez Nunez DO Unavailable [phone] Autumn Chapman OD Unavailable +[phone] Alcon Camacho MD Unavailable +[phone] Tess Brennan MD Unavailable +[phone] Tee Moura MD Unavailable +[phone] Michel Linda MD Unavailable Verena Crespo MD Unavailable [phone] Unknown, Notinfile Primary Care Provider Unavail able Julian Encarnacion MD Primary Care Provider Encounter Details Date Type Department Care Team (Late st Contact Info) Description 10/10/2017 Orders Only [facility] Provider, MD Tayler [address] [place] [address] Social History Tobacco Use Types Packs/Day Years Used Date Smoking Tobacco: Never Smokeless Tobacco: Never Alcohol Use Standard Drinks/Week Comments No 0 (1 standard drink = 0.6 oz pur e alcohol) Comments No Sex and Gender Information Value Date Recorded Sex Assigned at Not on file Legal Sex Female 11:50 PM EXTENSION AGENT Gender Identity Not on file Sexual [...] on filedocumented in this encounter Care Teams Cotton Weigher Relationship Specialty Start Date End Date Valerie Grimaldo MD PCP - General 09/27/16 03/16/20 Unknown, Notinfile PCP - General 03/17/20 11/21/20 Julian Encarnacion MD [address] [address] PCP - General Family Medicine 11/22/20 [place] [address] [facility] [address] [place] [address] Pulmonary Disease 02/27/17 Wen Nelson MD [address] [place] [address] Obstetrics and Gynecology 02/27/17 José Miguel Alva MD [address] [facility] [address] [place] [address] Gynecologic Oncology 02/27/17 Drew Martínez MD [address] [place] [address] Orthopedic Surgery 02/27/17 Lopez Nunez DO [address] [place] [address] Consulting Physician Gastroenterology 04/25/17 Autumn Chapman OD [address] [place] [address] Optometry 04/28/17 [place] [address] [facility] [address] [place] [address] Consulting Physician Cardiology 09/07/17 Tess Brennan MD [address] [address] Referring Physician Gastroenterology 09/25/17 Tee Moura MD [address] [address] Referring Physician Surgery 11/29/17 Michel Linda MD [address] [address] Referring Physician General Surgery 03/11/19 Verena Crespo MD 2 [place] [address] [place] [address] Consulting Physician Nephrology 03/13/19 documented as of this encounter
--- OUTSIDE RECORDS SUMMARY | 2025-03-24 06:58 | XMS_ITS | Encounter Summary ---
Author Organization [facility] of [facility] Address [address] [place] [address] Phone Care Team Providers Care Condenser Tube Tender Name Role Phone Valerie Grimaldo MD Primary Care Provider + [phone] Cody Polk MD Unavailable +[phone] Wen Nelson MD Unavailable José Miguel Alva MD Unavailable +[phone] Drew Martínez MD Unavailable +[phone] Lopez Nunez DO Unavailable [phone] Autumn Chapman OD Unavailable +[phone] Alcon Camacho MD Unavailable +[phone] Tess Brennan MD Unavailable +[phone] Tee Moura MD Unavailable [phone] Michel Linda MD Unavailable Verena Crespo MD Unavailable +[phone] Unknown, Notinfile Primary Care Provider Unavail able Julian Encarnacion MD Primary Care Provider Encounter Details Date Type Department Care Team (Late st Contact Info) Description 11/26/[address] 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 [address] [place] [address] Pulmonary Disease 02/27/17 Wen Nelson MD [address] [place] [address] Obstetrics and Gynecology 02/27/17 José Miguel Alva MD [address] [facility] [address] [place] [address] Gynecologic Oncology 02/27/17 Drew Martínez MD [address] [place] [address] Orthopedic Surgery 02/27/17 Lopez Nunez DO [address] [place] [address] Consulting Physician Gastroenterology 04/25/17 Autumn Chapman OD [address] [place] [address] Optometry 04/28/17 [place] [address] [facility] [address] [place] [address] Consulting Physician Cardiology 09/07/17 Tess Brennan MD [address] [address] Referring Physician Gastroenterology 09/25/17 Tee Moura MD [address] [address] Referring Physician Surgery 11/29/17 Michel Linda MD [address] [address] Referring Physician General Surgery 03/11/19 Verena Crespo MD 2 [place] [address] [place] [address] Consulting Physician Nephrology 03/13/19 documented as of this encounter
--- OUTSIDE RECORDS SUMMARY | 2025-03-24 06:58 | XMS_ITS | Encounter Summary ---
Author Organization [facility] of [facility] Address [address] [place] [address] Phone Care Team Providers Care Box Brander Name Role Phone Valerie Grimaldo MD Primary Care Provider + [phone] Cody Polk MD Unavailable [phone] Wen Nelson MD Unavailable José Miguel Alva MD Unavailable +[phone] Drew Martínez MD Unavailable +[phone] Lopez Nunez DO Unavailable [phone] Autumn Chapman OD Unavailable +[phone] Alcon Camacho MD Unavailable +[phone] Tess Brennan MD Unavailable +[phone] Tee Moura MD Unavailable [phone] Michel Linda MD Unavailable Verena Crespo MD Unavailable [phone] Unknown, Notinfile Primary Care Provider Unavail able Julian Encarnacion MD Primary Care Provider Encounter Details Date Type Department Care Team (Late st Contact Info) Description 08/22/2017 Orders Only [facility] Provider, MD Tayler [address] [place] [address] Social History Tobacco Use Types Packs/Day Years Used Date Smoking Tobacco: Never Smokeless Tobacco: Never Alcohol Use Standard Drinks/Week Comments No 0 (1 standard drink = 0.6 oz pur e alcohol) Comments Unknown Sex and Gender Information Value Date Recorded Sex Assigned at Not on file Legal Sex Female 11:50 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 us Historical Provider LAB BLOOD ORDERABLES Soledad l Result documented in this encounter Visit Diagnoses Not on filedocumented in this encounter Care Teams Box Brander Relationship Specialty Start Date End Date Valerie Grimaldo MD PCP - General 09/27/16 03/16/20 Unknown, Notinfile PCP - General 03/17/20 11/21/20 Julian Encarnacion MD 2 [facility] [address] [place] [address] PCP - General Family Medicine 11/22/20 [place] [address] [facility] [address] [place] [address] Pulmonary Disease 02/27/17 Wen Nelson MD [address] [place] [address] Obstetrics and Gynecology 02/27/17 José Miguel Alva MD [address] [facility] [address] [place] [address] Gynecologic Oncology 02/27/17 Drew Martínez MD [address] [facility] [address] [place] [address] Orthopedic Surgery 02/27/17 Lopez Nunez DO [address] [facility] [address] [place] [address] Consulting Physician Gastroenterology 04/25/17 Autumn Chapman OD [address] [place] [address] Optometry 04/28/17 [place] [address] [facility] [address] [place] [address] Consulting Physician Cardiology 09/07/17 Tess Brennan MD [address] [place] [address] [address] Referring Physician Gastroenterology 09/25/17 Tee Moura MD [address] [place] [address] [address] Referring Physician Surgery 11/29/17 Michel Linda MD [address] [place] [address] [address] Referring Physician General Surgery 03/11/19 Verena Crespo MD [address] [place] [address] [address] Consulting Physician Nephrology 03/13/19 documented as of this encounter
--- OUTSIDE RECORDS SUMMARY | 2025-03-24 06:59 | XMS_ITS | Encounter Summary ---
Author Organization [facility] Address [address] [place] [address] Phone Care Team Providers Care Denture Finisher Name Role Phone Valerie Grimaldo MD Primary Care Provider + [phone] Cody Polk MD Unavailable +[phone] Wen Nelson MD Unavailable José Miguel Alva MD Unavailable +[phone] Drew Martínez MD Unavailable +[phone] Lopez Nunez DO Unavailable [phone] Autumn Chapman OD Unavailable [phone] Alcon Camacho MD Unavailable +[phone] Tess Brennan MD Unavailable [phone] Tee Moura MD Unavailable [phone] Michel Linda MD Unavailable Verena Crespo MD Unavailable [phone] Unknown, Notinfile Primary Care Provider Unavail able Julian Encarnacion MD Primary Care Provider Encounter Details Date Type Department Care Team (Late st Contact Info) Description 09/08/2017 Orders Only [facility] Provider, MD Tayler [address] [place] [address] Social History Tobacco Use Types Packs/Day Years Used Date Smoking Tobacco: Never Smokeless Tobacco: Never Alcohol Use Standard Drinks/Week Comments No 0 (1 standard drink = 0.6 oz pur e alcohol) Comments No Sex and Gender Information Value Date Recorded Sex Assigned at Not on file Legal Sex Female 11:50 PM WRITING CENTER DIRECTOR Gender Identity Not on file Sexual Orientation [...] on filedocumented in this encounter Care Teams Denture Finisher Relationship Specialty Start Date End Date Valerie Grimaldo MD PCP - General 09/27/16 03/16/20 Unknown, Notinfile PCP - General 03/17/20 11/21/20 Julian Encarnacion MD 2 [facility] [address] [place] [address] PCP - General Family Medicine 11/22/20 [place] [address] [facility] [address] [place] [address] Pulmonary Disease 02/27/17 Wen Nelson MD [address] [place] [address] Obstetrics and Gynecology 02/27/17 José Miguel Alva MD [address] [facility] [address] [place] [address] Gynecologic Oncology 02/27/17 Drew Martínez MD [address] [place] [address] Orthopedic Surgery 02/27/17 Lopez Nunez DO [address] [place] [address] Consulting Physician Gastroenterology 04/25/17 Autumn Chapman OD [address] [place] [address] Optometry 04/28/17 [place] [address] [facility] [address] [place] [address] Consulting Physician Cardiology 09/07/17 Tess Brennan MD [address] [place] [address] [address] Referring Physician Gastroenterology 09/25/17 Tee Moura MD [address] [place] [address] [address] Referring Physician Surgery 11/29/17 Michel Linda MD [address] [place] [address] [address] Referring Physician General Surgery 03/11/19 Verena Crespo MD [address] [address] [address] Consulting Physician Nephrology 03/13/19 documented as of this encounter
--- OUTSIDE RECORDS SUMMARY | 2025-03-24 06:59 | XMS_ITS | Encounter Summary ---
Author Organization [facility] Address [address] [place] [address] Phone Care Team Providers Care Brick Tester Name Role Phone Valerie Grimaldo MD Primary Care Provider + [phone] Cody Polk MD Unavailable [phone] Wen Nelson MD Unavailable [phone] José Miguel Alva MD Unavailable +[phone] Drew Martínez MD Unavailable [phone] Lopez Nunez DO Unavailable [phone] Autumn Chapman OD Unavailable +[phone] Alcon Camacho MD Unavailable +[phone] Tess Brennan MD Unavailable [phone] Tee Moura MD Unavailable +[phone] Michel Linda MD Unavailable Verena Crespo MD Unavailable +[phone] Unknown, Notinfile Primary Care Provider Unavail able Julian Encarnacion MD Primary Care Provider [phone] Encounter Details Date Type Department Care Team (Late st Contact Info) Description 09/15/2017 Orders Only [facility] Provider, MD Tayler [address] [place] [address] Social History Tobacco Use Types Packs/Day Years Used Date Smoking Tobacco: Never Smokeless Tobacco: Never Alcohol Use Standard Drinks/Week Comments No 0 (1 standard drink = 0.6 oz pur e alcohol) Comments No Sex and Gender Information Value Date Recorded Sex Assigned at Not on file Legal Sex Female 11:50 PM COPY HOLDER Gender Identity Not on file Sexual Orientation [...] on filedocumented in this encounter Care Teams Brick Tester Relationship Specialty Start Date End Date Valerie Grimaldo MD PCP - General 09/27/16 03/16/20 Unknown, Notinfile PCP - General 03/17/20 11/21/20 Julian Encarnacion MD [address] [address] PCP - General Family Medicine 11/22/20 [place] [address] [facility] [address] [place] [address] Pulmonary Disease 02/27/17 Wen Nelson MD [address] [place] [address] Obstetrics and Gynecology 02/27/17 José Miguel Alva MD [address] [facility] [address] [place] [address] Gynecologic Oncology 02/27/17 Drew Martínez MD [address] [place] [address] Orthopedic Surgery 02/27/17 Lopez Nunez DO [address] [place] [address] Consulting Physician Gastroenterology 04/25/17 Autumn Chapman OD [address] [place] [address] Optometry 04/28/17 [place] [address] [facility] [address] [place] [address] Consulting Physician Cardiology 09/07/17 Tess Brennan MD 2 [facility] [address] [place] [address] Referring Physician Gastroenterology 09/25/17 Tee Moura MD [address] [address] Referring Physician Surgery 11/29/17 Michel Linda MD [address] [place] [address] [address] Referring Physician General Surgery 03/11/19 Verena Crespo MD [address] [place] [address] [address] Consulting Physician Nephrology 03/13/19 documented as of this encounter
--- OUTSIDE RECORDS SUMMARY | 2025-03-24 06:59 | XMS_ITS | Encounter Summary ---
Author Organization [facility] Address [address] [place] [address] Phone Care Team Providers Care Licensed Pesticide Applicator Name Role Phone Valerie Grimaldo MD Primary Care Provider + [phone] Cody Polk MD Unavailable +[phone] Wen Nelson MD Unavailable José Miguel Alva MD Unavailable +[phone] Drew Martínez MD Unavailable +[phone] Lopez Nunez DO Unavailable [phone] Autumn Chapman OD Unavailable [phone] Alcon Camacho MD Unavailable +[phone] Tess Brennan MD Unavailable [phone] Tee Moura MD Unavailable [phone] Michel Linda MD Unavailable Verena Crespo MD Unavailable +[phone] Unknown, Notinfile Primary Care Provider Unavail able Julian Encarnacion MD Primary Care Provider Encounter Details Date Type Department Care Team (Late st Contact Info) Description 10/01/2017 Orders Only [facility] Provider, MD Tayler [address] [place] [address] Social History Tobacco Use Types Packs/Day Years Used Date Smoking Tobacco: Never Smokeless Tobacco: Never Alcohol Use Standard Drinks/Week Comments No 0 (1 standard drink = 0.6 oz pur e alcohol) Comments No Sex and Gender Information Value Date Recorded Sex Assigned at Not on file Legal Sex Female 11:50 PM PROFESSOR OF THEATER Gender Identity Not on file Sexual Orientation [...] on filedocumented in this encounter Care Teams Licensed Pesticide Applicator Relationship Specialty Start Date End Date Valerie Grimaldo MD PCP - General 09/27/16 03/16/20 Unknown, Notinfile PCP - General 03/17/20 11/21/20 Julian Encarnacion MD [address] [address] PCP - General Family Medicine 11/22/20 [place] [address] [facility] H[address] [place] [address] Pulmonary Disease 02/27/17 Wen Nelson MD [address] [place] [address] Obstetrics and Gynecology 02/27/17 José Miguel Alva MD [address] [facility] [address] [place] [address] Gynecologic Oncology 02/27/17 Drew Martínez MD [address] [place] [address] Orthopedic Surgery 02/27/17 Lopez Nunez DO [address] [place] [address] Consulting Physician Gastroenterology 04/25/17 Autumn Chapman OD [address] [place] [address] Optometry 04/28/17 [place] [address] [facility] [address] [place] [address] Consulting Physician Cardiology 09/07/17 Tess Brennan MD [address] [address] Referring Physician Gastroenterology 09/25/17 Tee Moura MD [address] [address] Referring Physician Surgery 11/29/17 Michel Linda MD [address] [address] Referring Physician General Surgery 03/11/19 Verena Crespo MD 2 [place] [address] [place] [address] Consulting Physician Nephrology 03/13/19 documented as of this encounter
[2025-03-24 18:28] LABS: Hematocrit 42.9 % (37.0-47.0); Hemoglobin 12.8 g/dL (12.0-15.0); Immature Granulocyte Percent A 0.1 % (0-0.5); Lymphocytes Absolute Auto 4.16 K/mm3 (0.9-3.2); Mean Corpuscular HGB Conc 29.8 g/dl (32-36); Mean Corpuscular Hemoglobin 27.2 pg (26-34); Mean Corpuscular Volume 91.1 fl (80-100); Nucleated Red Blood Cells Absolute Auto 0.000 K/mm3 (0.0-0.012); Nucleated Red Blood Cells Perc 0.0 % (0.0-0.2); Platelet Count Result 265 k/mm3 (150-375); Red Blood Count 4.71 M/mm3 (4.2-5.4); White Blood Count 9.4 K/mm3 (4.5-10.0)
[2025-03-24 18:52] LABS: Hemoglobin A1C 6.5 % (<5.7)
[2025-03-24 18:58] LABS: Burr Cells Occasional; Schistocytes None Seen
== END 2025-03-24 06:56 | disposition home or self-care (01) ==
PROVIDERS: PCP Family Medicine; Visit Provider Nurse Practitioner Family
DX: R22.1 Localized swelling, mass and lump, neck (principal); E11.9 Type 2 diabetes mellitus without complications; I25.10 Atherosclerotic heart disease of native coronary artery without angina pectoris; E78.5 Hyperlipidemia, unspecified; D75.1 Secondary polycythemia; G47.33 Obstructive sleep apnea (adult) (pediatric); G47.00 Insomnia, unspecified; I12.9 Hypertensive chronic kidney disease with stage 1 through stage 4 chronic kidney disease, or unspecified chronic kidney disease; N18.9 Chronic kidney disease, unspecified
CPT/HCPCS: 36415; 83036; 85025

== ENCOUNTER 2025-03-30 13:14 | Outpatient (CLI) | payer MEDICARE, SELFPAY ==
--- NOTE | ~2025-03-30 | US_ITS ---
Clinical history:Localized swelling, mass, lump, neck right lateral base of the neck. EXAM:Ultrasound soft tissue head and neck TECHNIQUE:Multiple static grayscale images and color Doppler images were obtained of the area of concern along the right lateral neck base Comparisons:None available FINDINGS: There is a 2.1 x 0.4 x 1.7 cm heterogeneous masslike structure in the area of concern along the right lateral neck base with adjacent skin thickening. There is a 0.6 cm linear echogenic focus within the mass. There is peripheral and internal Doppler flow. IMPRESSION: 1.There is a 2.1 x 0.4 x 1.7 cm heterogeneous masslike oval structure in the area of palpable concern along the right lateral neck base with adjacent nonspecific skin thickening. Differential includes heterogeneous mass versus complex fluid collection. An infectious process is possible. Other etiologies are possible. A CT of the soft tissues of the neck with contrast is recommended. 2. There is a 0.6 cm linear echogenic focus within the masslike structure. The finding is nonspecific. A radiopaque foreign body is possible. Other etiologies are possible. X-rays of the soft tissues of the neck is recommended. Reviewed, dictated and finalized at location Q. IMPRESSION: 1.There is a 2.1 x 0.4 x 1.7 cm heterogeneous masslike oval structure in the ar ea of palpable concern along the right lateral neck base with adjacent nonspeci fic skin thickening. Differential includes heterogeneous mass versus complex fl uid collection. An infectious process is possible. Other etiologies are possibl e. A CT of the soft tissues of the neck with contrast is recommended. 2. There is a 0.6 cm linear echogenic focus within the masslike structure. The finding is nonspecific. A radiopaque foreign body is possible. Other etiologies are possible. X-rays of the soft tissues of the neck is recommended.
== END 2025-03-30 13:15 | disposition home or self-care (01) ==
LOC: GOSHIMG 13:15
PROVIDERS: PCP Family Medicine; Visit Provider Nurse Practitioner Family
DX: R22.1 Localized swelling, mass and lump, neck (principal)
CPT/HCPCS: 76536

== ENCOUNTER 2025-05-07 11:01 | Outpatient (CLI) | payer MEDICARE, SELFPAY ==
--- NOTE | ~2025-05-07 | CT_ITS ---
EXAM/PROCEDURE: CT soft tissue neck wo con HISTORY: R22.1 - Localized swelling, mass and lump, neck COMPARISON: Ultrasound from March 302024 TECHNIQUE: Noncontrast soft tissue neck CT performed FINDINGS: Numerous nonpathologic sized lymph nodes are present throughout the jugulodigastric and the sternocleidomastoid as well as posterior triangle regions. The right parotid gland is mildly enlarged and has slightly increased strandy changes in the subcutaneous soft tissues when compared to the left parotid gland. The right parotid gland measures 6.5 x 5.1 cm, compared to 5.2 x 4.7 cm in the left parotid gland. No discrete parotid gland mass. No drainable fluid collection seen. The 2.1 x 1.7 cm mass or structure described on the recent ultrasound exam is not clearly identified on this exam. No acute process seen in the visualized portions of the upper chest or intracranial contents. Complete opacification of the right mastoid air cells noted and partial opacification of the right middle ear cavity. The left mastoid air cells and middle ear as well as paranasal sinuses are well aerated. Moderately extensive vascular calcification in the carotid arteries right worse than left. The thyroid gland is normal in size. IMPRESSION: 1. No discrete lesion or mass seen to correspond to sonographic findings. The right parotid gland appears slightly asymmetric, and larger compared to the left gland with mild infiltrative changes in the subcutaneous soft tissues. Findings could be associated with right-sided parotiditis. 2. If there is persistent concern for possible lesion or mass, repeat exam with contrast, or alternatively MRI may provide additional beneficial information. 3. Other incidental findings as above. Reviewed, dictated and finalized at location A. CH ASSOCIATE TELLER IMPRESSION: 1. No discrete lesion or mass seen to correspond to sonographic findings. The r ight parotid gland appears slightly asymmetric, and larger compared to the left gland with mild infiltrative changes in the subcutaneous soft tissues. Finding s could be associated with right-sided parotiditis. 2. If there is persistent concern for possible lesion or mass, repeat exam with contrast, or alternatively MRI may provide additional beneficial information. 3. Other incidental findings as above.
== END 2025-05-07 11:02 | disposition home or self-care (01) ==
PROVIDERS: PCP Family Medicine; Visit Provider Nurse Practitioner Family
DX: R22.1 Localized swelling, mass and lump, neck (principal)
CPT/HCPCS: 70490

== ENCOUNTER 2025-05-09 09:27 | Outpatient (CLI) | payer MEDICARE, SELFPAY ==
--- OUTSIDE RECORDS SUMMARY | 2025-05-09 10:04 | XMS_ITS | Clinical Summary ---
Author Organization [facility] Address [address] [place] [address] Care Team Providers Care Monotype Caster Name Role Phone Cody Polk MD Unavailable [phone] Wen Nelson MD Unavailable José Miguel Alva MD Unavailable [phone] Drew Martínez MD Unavailable [phone] Lopez Nunez DO Unavailable [phone] Autumn Chapman OD Unavailable [phone] Alcon Camacho MD Unavailable [phone] Tess Brennan MD Unavailable +[phone] Tee Moura MD Unavailable [phone] Michel Linda MD Unavailable Verena Crespo MD Unavailable [phone] Julian Encarnacion MD Primary Care Provider Allergies [...] Ischemic heart disease due to coronary artery obstruction,Multip le-type hyperlipidemia TAKE 1 TABLET BY MOUTH DAILY [...] heart disease due to coronary artery obstruction Take 1 tablet (100 mg total) by [...] controlled Assessment & Plan (08/10/2019 11:00 AM DIRECTOR DATA ANALYTICS): Patient with improvement in HgbA1C from 10.4 [...] sleep apnea syndrome, 327.23. AXIS B: Polysomnography, 6[address]. Ischemic heart disease due to coronary artery [...] into coronary artery HYSTERECTOMY 06/30/2014 - 06/29/2015 [facility], staging - IA G1 uterine adenocarcinoma. Dr. Alva. ESOPHAGOSCOPY / EGD 09/24/2017 GI bleed with gastric ulcer with visible vessel, bleeding developed after starting Eliquis for PE BREAST SURGERY 12/28/2017 - 01/27/2018 Left BENIGN GROWTH REMOVED CORONARY ANGIOPLASTY WITH STENT PLACEMENT 04/23/2018 Medical History Medical History Date Comments Hypertension Hypertension Cardiovascular disease Coronary artery disease Gastroesophageal reflux disease GERD Diabetes mellitus Diabetes Hyperlipidemia Hyperlipidemia Hx Other Medical End [...] 2 NSTEMI (non-ST elevated myoc ardial infarction) ([facility]) 09/07/2017 Acute saddle pulmonary embol ism with [...] on file Legal Sex Female 11:50 PM DIRECTOR DATA ANALYTICS Gender Identity Not on file Sexual Orientation [...] Comments Blood Pressure 110/60 08/10/2019 9:44 AM DIRECTOR DATA ANALYTICS Pulse 68 08/10/2019 9:44 AM DIRECTOR DATA ANALYTICS Temperature 36.1 C (97 F) 05/25/2019 7:56 AM DIRECTOR DATA ANALYTICS Respiratory Rate 12 08/10/2019 9:44 AM DIRECTOR DATA ANALYTICS Oxygen Saturation 97% 08/10/2019 9:44 AM DIRECTOR DATA ANALYTICS Inhaled Oxygen Concentration - - Weight 113.4 kg (250 lb) 08/10/2019 9:44 AM DIRECTOR DATA ANALYTICS Height 157.5 cm (5' 2) 01/26/2019 9:45 AM CDT Body Mass Index 45.73 01/26/2019 9:45 AM CDT Plan of Treatment Health Maintenance Due Date Last Done Comments Dilated Eye Exam 1950 Hepatitis B Screening [...] 06/24/2021 06/24/2011, 09/23/2008 Covid-19 Vaccine (3 - 2024-2 6 season) 2025 10/25/2020, 09/26/2020 Influenza Vaccine (#1) 2025 , [...] COMPREHENSIVE METABOLIC PANEL Routine 08/07/2019 9:31 AM DIRECTOR DATA ANALYTICS Type 2 diabetes mellitus with stage 4 chronic kidney disease, with long-term current use of insulin (HCC) Hypertension complicating diabetes (HCC) ALBUMIN CREATININE RATIO, URINE Routine 08/07/2019 9:31 AM DIRECTOR DATA ANALYTICS Type 2 diabetes mellitus with stage 4 chronic kidney disease, with long-term current use of insulin (HCC) Hypertension complicating diabetes (HCC) SCREENING MAMMOGRAM 2D BILATERAL Schedule Routine, Read Routine (OP Routine) 10/27/2017 10:50 AM CDT Encounter for screening mammogram for malignant neoplasm of breast HEPATITIS C ANTIBODY Routine 09/05/2017 1:37 PM DIRECTOR DATA ANALYTICS SERUM LIPID PANEL Routine 07/24/2016 9:0 5 AM DIRECTOR DATA ANALYTICS from Last 3 Months or Most Recently [...] MD LAB BLOOD ORDERABLES Final Result [facility] [address] [place] [address] * (ABNORMAL) Albumin Creatinine Ratio, Urine (08/07/2019 9:31 AM DIRECTOR DATA ANALYTICS) Creatinine, ur 142 20 - 275 mg/dL [...] a diagnostic category. Urine 08/07/2019 9:31 AM DIRECTOR DATA ANALYTICS 08/07/2019 9:31 AM DIRECTOR DATA ANALYTICS Narrative Resulting Agency Comment Performing Organization Information: Site ID: [place] Name: [facility] Address: [address] [address] Director: Cody Castro D.O., MPH us Valerie Grimaldo MD LAB URINE ORDERABLES Final Result [facility] [place] * (ABNORMAL) Comprehensive metabolic panel (08/07/2019 9:31 AM DIRECTOR DATA ANALYTICS) Glucose 148(H) 65 - 99 mg/dL [facility] [place] Comment: Fasting reference interval For someone without [...] approximately 13% higher for people identified as -Salvadorean. eGFR NON-AFR. [place] 30(L) > OR = 60 mL/min/1. 73m2 [...] GLOBULIN 3.0 1.9 - 3.7 g/dL (calc) [facility] [place] Alb/glob ratio 1.4 1.0 - 2.5 (calc) [facility] [place] Bilirubin, total 0.6 0.2 - 1.2 mg/dL [facility] [place] Alk phos 123 37 - 153 U/L [facility] [place] AST 10 10 - 35 U/L [facility] [place] ALT (SGPT) 8 6 - 29 U/L [facility] [place] Blood specimen (specimen) 08/07/2019 9:31 AM DIRECTOR DATA ANALYTICS 08/07/2019 9:31 AM DIRECTOR DATA ANALYTICS Narrative Resulting Agency Comment Performing Organization Information: Site ID: [id number] Name: [facility] Address: [address] [address] Director: Cody Castro D.O., MPH Valerie Grimaldo MD LAB BLOOD ORDERABLES Final Result Performing Organization Address City/State/[facility] Co de Phone Number [place] Sarah * Screening Mammogram 2D Bilateral [...] * Hepatitis C antibody (09/05/2017 1:37 PM DIRECTOR DATA ANALYTICS) Pathologist [facility] [place] Hep C Ab Negative Negative [facility] Blood specimen (specimen) 09/05/2017 1:37 PM DIRECTOR DATA ANALYTICS 09/05/2017 8:35 PM DIRECTOR DATA ANALYTICS Narrative [facility] - 09/05/2017 9:21 PM DIRECTOR DATA ANALYTICS Valerie Grimaldo MD LAB MICROBIOLOGY - GENERAL ORDERABLES Edited Result - Final [facility] [address] [facility] [place] [address] * (ABNORMAL) Serum lipid panel (07/24/2016 9:05 AM DIRECTOR DATA ANALYTICS) Pathologist [facility] Cholesterol 222(H) 100 - 200 mg/dl CDR [...] last revised 2016. Serum 07/24/2016 9:05 AM DIRECTOR DATA ANALYTICS Valerie Grimaldo MD LAB BLOOD ORDERABLES Final Result [facility] HISTORICAL RESULTS from Last 3 Months or Most Recently Relevant to Health Maintenance Insurance [facility] HMO REF [facility] H[facility] REF MEDICARE [facility] MEDICARE ADV [facility] HMO REF Advance Directives For more information, please contact: [phone] Documents on File Type Date Recorded Patient Fashion Supervisor Expl anation ADVANCE DIRECTIVE 05/01/2018 2:42 PM POWER OF CHRONOMETER ASSEMBLER AND ADJUSTER ADVANCE DIRECTIVE 05/01/2018 2:42 PM Care Teams Monotype Caster Relationship Specialty Start Date End Date Julian Encarnacion MD [address] [facility] [address] [place] [address] PCP - General Family Medicine 11/22/[address] [place] [address] [facility] [address] [place] [address] Pulmonary Disease 02/27/17 Wen Nelson MD [address] [place] [address] Obstetrics and Gynecology 02/27/17 José Miguel Alva MD [address] [facility] [address] [place], [place] [id number] Gynecologic Oncology 02/27/17 Drew Martínez MD [address] [place] [address] Orthopedic Surgery 02/27/17 Lopez Nunez DO [address] [place] [address] Consulting Physician Gastroenterology 04/25/17 Autumn Chapman OD [address] [place] [address] Optometry 04/28/17 [place] [address] [address] [facility] [address] [place] [address] Consulting Physician Cardiology 09/07/17 Tess Brennan MD [address] [place] [address] [address] [address] Referring Physician Gastroenterology 09/25/17 Tee Moura MD [address] [address] [address] Referring Physician Surgery 11/29/17 Michel Linda MD [address] [address] [address] Referring Physician General Surgery 03/11/19 Verena Crespo MD [address] [address] [address] Consulting Physician Nephrology 03/13/19
--- OUTSIDE RECORDS SUMMARY | 2025-05-09 10:05 | XMS_ITS | Encounter Summary ---
Author Organization [facility] Address [address] [place] [address] Phone Care Team Providers Care Night Clerk Auditor Name Role Phone Valerie Grimaldo MD Primary Care Provider + [phone] Cody Polk MD Unavailable [phone] Wen Nelson MD Unavailable José Miguel Alva MD Unavailable [phone] Drew Martínez MD Unavailable [phone] Lopez Nunez DO Unavailable [phone] Autumn Chapman OD Unavailable [phone] Alcon Camacho MD Unavailable [phone] Tess Brennan MD Unavailable [phone] Tee Moura MD Unavailable [phone] Michel Linda MD Unavailable Verena Crespo MD Unavailable [phone] Unknown, Notinfile Primary Care Provider Unavail able Julian Encarnacion MD Primary Care Provider [phone] Encounter Details Date Type Department Care Team (Late st Contact Info) Description 09/15/2017 Orders Only [facility] Provider, MD [place] [address] [place] [address] Social History Tobacco Use Types Packs/Day Years Used Date Smoking Tobacco: Never Smokeless Tobacco: Never Alcohol Use Standard Drinks/Week Comments No 0 (1 standard drink = 0.6 oz pur e alcohol) Comments No Sex and Gender Information Value Date Recorded Sex Assigned at Not on file Legal Sex Female 11:50 PM COUNCILPERSON Gender Identity Not on file Sexual Orientation Not on file Occupation Industry Job Start Date Job End Date Retired Not on file Not on file Not on file documented as of this encounter Functional Status documented as of this encounter Plan of [...] on filedocumented in this encounter Care Teams Night Clerk Auditor Relationship Specialty Start Date End Date Valerie Grimaldo MD PCP - General 09/27/16 03/16/20 Unknown, Notinfile PCP - General 03/17/20 11/21/20 Julian Encarnacion MD [address] [address] PCP - General Family Medicine 11/22/20 [place] [address] [facility] [address] [place] [address] Pulmonary Disease 02/27/17 Wen Nelson MD [address] [address] Obstetrics and Gynecology 02/27/17 José Miguel Alva MD [address] [facility] [address] [place] [address] Gynecologic Oncology 02/27/17 Drew Martínez MD [address] [place] [address] Orthopedic Surgery 02/27/17 Lopez Nunez DO [address] [place] [address] Consulting Physician Gastroenterology 04/25/17 Autumn Chapman OD [address] [place] [address] Optometry 04/28/17 [place] [address] [address] [facility] [address] [place] [address] Consulting Physician Cardiology 09/07/17 Tess Brennan MD [address] [address] Referring Physician Gastroenterology 09/25/17 Tee Moura MD [address] [address] Referring Physician Surgery 11/29/17 Michel Linda MD [address] [address] Referring Physician General Surgery 03/11/19 Verena Crespo MD 2 [facility] [address] [address] Consulting Physician Nephrology 03/13/19 documented as of this encounter
--- OUTSIDE RECORDS SUMMARY | 2025-05-09 10:05 | XMS_ITS | Encounter Summary ---
Author Organization [facility] Address [address] [place] [address] Phone Care Team Providers Care Sustainability Communicator Name Role Phone Julian Encarnacion MD Primary Care Provider [phone] Travis Torrez MD Primary Care Provider [phone] Carolee Tay APRN, MAINTENANCE PIPEFITTER Unavailable Reason for Visit * Reason Comments Medication Refill Encounter Details Date Type Department Care Team (Late st Contact Info) Description 01/12/2021 Refill [facility] - Family [facility] [address] [place] [address] Julian Encarnacion MD [address] [address] Medication Refill Social History Tobacco Use Types [...] [place] 07/20/20 Office Visit Julian Encarnacion MD [facility] Showing recent visits within past 182 days and meeting all other requirements Future Appointments Date Type Provider Dept 01/17/21 Appointment Julian Encarnacion MD [facility] Showing future appointments within next 90 days [...] complication, with long-term current use of insulin ([facility]) [facility] - Family [facility] - Julian Hines MD 5 months ago Type 2 diabetes mellitus without complication, with long-term current use of insulin ([facility]) [facility] - Julian Hines MD 7 months ago Hematemesis, presence of nausea not specified [facility] Medical [facility] Family [facility] - Julian Hines MD 8 months ago Hematemesis, presence of nausea not specified [facility] Julian Hines MD 9 months ago Preop cardiovascular exam [facility] Julian Graham MD Upcoming Appointments Future Appointments In 5 days Julian Encarnacion MD [facility], [facility] In 1 month Cristina Garcia APN, MAINTENANCE PIPEFITTER [facility] Oncology Services, [facility] MUSCULOSKELETAL PHYSIOTHERAPIST - Recent and Past Visits Recent Visits Date Type Provider Dept 10/18/20 Office Visit Julian Encarnacion MD [facility] [place] 07/20/20 Office Visit [facility] 06/08/20 Office Visit Julian Encarnacion MD [facility] 05/10/20 Office Visit Julian Encarnacion MD [facility] 03/23/20 Office Visit Julian Encarnacion MD [facility] 02/18/20 Office Visit Aletha Anand PAC [facility] Showing recent visits within past 460 days with a meds authorizing provider and meeting all other requirements Future Appointments Date Type Provider Dept 01/17/21 Appointment Julian Encarnacoin MD [facility] Showing future appointments within next 90 days with a meds authorizing provider and meeting all other requirements documented in this encounter Plan of Treatment Upcoming Encounters Date Type Department Care Team (Late st Contact Info) Description 08/15/2025 10:00 AM MILK POWDER GRINDER Office Visit [facility] Medical [facility] - Cardiology - [place] [address] [facility] [place] [address] Carolee Tay APRN, MAINTENANCE PIPEFITTER [address]2 [facility] [place] [address] documented as of this encounter Visit Diagnoses Not on filedocumented in this encounter Additional Health Concerns Infection Onset Date Last Indicated Resolved Time COVID - 19 07/20/2024 07/20/2024 07/20/2024 3:10 AM MILK POWDER GRINDER Assessment Noted Time PHQ-9 Depression Total Score: 0 04/24/20 10:39 AM CDT documented as of this encounter Care Teams Sustainability Communicator Relationship Specialty Start Date End Date Julian Encarnacion MD #[address] [address] PCP - General Family Medicine 03/28/20 04/23/22 Travis Torrez MD #[address] [address] PCP - General Family Medicine 05/21/22 Carolee Tay APRN, MAINTENANCE PIPEFITTER [address] [place] [address] Nurse Practitioner Certified Nurse Practitioner 08/20/24 documented as of this encounter
--- OUTSIDE RECORDS SUMMARY | 2025-05-09 10:05 | XMS_ITS | Encounter Summary ---
Author Organization [facility] Address [address] [place] [address] Phone Care Team Providers Care Auto Rental Clerk Name Role Phone Julian Encarnacion MD Primary Care Provider [phone] Travis Torrez MD Primary Care Provider [phone] Carolee Tay APRN, STONE CLEANER Unavailable Reason for Visit * Reason Comments Medication Refill Encounter Details Date Type Department Care Team (Late st Contact Info) Description 08/06/2021 Refill [facility] - Family Medicine [facility] #[address] [place] [address] Julian Encarnacion MD #[address] [address] Medication Refill Social History Tobacco Use Types [...] Autumn Patino RN - 08/07/2021 2:23 PM SALES PLANNING MANAGER Patient is not wanting an appointment, just wanted enough medication until she could see her new Dr. S PLANNING MANAGER * Telephone Encounter - Kenyetta Moran RMA - 08/07/2021 2:13 PM SALES PLANNING MANAGER Left voicemail S PLANNING MANAGER * Telephone Encounter - Dominique Conway RN - 08/07/2021 10:38 AM CST Provider requests patient appointment S PLANNING MANAGER * Telephone Encounter - Dominique Conway [...] Dept 02/21/21 Office Visit Julian Encarnacion MD [facility] [place] Showing recent visits within past 182 days and meeting all other requirements Future Appointments No visits were found meeting these conditions. Showing future appointments within next 90 days and meeting all other requirements S PLANNING MANAGER documented in this encounter Plan of Treatment Upcoming Encounters Date Type Department Care Team (Late st Contact Info) Description 08/15/2025 10:00 AM SALES PLANNING MANAGER Office Visit [facility] - Cardiology - [place] [address] [place] [address] Carolee Tay APRN, STONE CLEANER [address] [place] [address] documented as of this encounter Visit Diagnoses Not on filedocumented in this encounter Additional Health Concerns Infection Onset Date Last Indicated Resolved Time COVID - 19 07/20/2024 07/20/2024 07/20/2024 3:10 AM SALES PLANNING MANAGER Assessment Noted Time PHQ-9 Depression Total Score: 0 04/24/20 10:39 AM CDT documented as of this encounter Care Teams Auto Rental Clerk Relationship Specialty Start Date End Date Julian Encarnacion MD [address] [address] PCP - General Family Medicine 03/28/20 04/23/22 Travis Torrez MD [address] [address] PCP - General Family Medicine 05/21/22 Carolee Tay APRN, KIM [address] [place] [address] Nurse Practitioner Certified Nurse Practitioner 08/20/24 documented as of this encounter
--- OUTSIDE RECORDS SUMMARY | 2025-05-09 10:05 | XMS_ITS | Encounter Summary ---
Author Organization [facility] Address [address] [place] [address] Phone Care Team Providers Care Applications Systems Analyst Name Role Phone Valerie Grimaldo MD Primary Care Provider + [phone] Cody Polk MD Unavailable [phone] Wen Nelson MD Unavailable José Miguel Alva MD Unavailable [phone] Drew Martínez MD Unavailable [phone] Lopez Nunez DO Unavailable [phone] Autumn Chapman OD Unavailable [phone] Alcon Camacho MD Unavailable [phone] Tess Brennan MD Unavailable [phone] Tee Moura MD Unavailable [phone] Michel Linda MD Unavailable Verena Crespo MD Unavailable [phone] Unknown, Notinfile Primary Care Provider Unavail able Julian Encarnacion MD Primary Care Provider Encounter Details Date Type Department Care Team (Late st Contact Info) Description 11/26/2017 Orders Only [facility] Provider, MD [place] [address] [place] [address] Social History Tobacco Use Types Packs/Day Years Used Date Smoking Tobacco: Never Smokeless Tobacco: Never Alcohol Use Standard Drinks/Week Comments No 0 (1 standard drink = 0.6 oz pur e alcohol) Comments No Sex and Gender Information Value Date Recorded Sex Assigned at Not on file Legal Sex Female 11:50 PM MANAGER EXPORT Gender Identity Not on file Sexual Orientation Not on file Occupation Industry Job Start Date Job End Date Retired Not on file Not on file Not on file documented as of this encounter Functional Status * BP Location Answer Date of Assessment Author Left arm 11/28/2017 12:20 PM CDT Milly Prado MA * BP Location Answer Date of Assessment Author Left arm 11/28/2017 12:20 PM CDT Milly Prado MA documented as of this encounter Plan of [...] on filedocumented in this encounter Care Teams Applications Systems Analyst Relationship Specialty Start Date End Date Valerie Grimaldo MD PCP - General 09/27/16 03/16/20 Unknown, Notinfile PCP - General 03/17/20 11/21/20 Julian Encarnacion MD [address] [address] PCP - General Family Medicine 11/22/20 [place] [address] [place] [id number] [place] [address] Pulmonary Disease 02/27/17 Wen Nelson MD [address] [place] [address] Obstetrics and Gynecology 02/27/17 José Miguel Alva MD [address] [facility] [address] [place] [address] Gynecologic Oncology 02/27/17 Drew Martínez MD [address] [facility] [address] [place] [address] Orthopedic Surgery 02/27/17 Lopez Nunez DO [address] [place] [address] Consulting Physician Gastroenterology 04/25/17 Autumn Chapman OD [address] [place] [address] Optometry 04/28/17 [place] [address] [address] [facility] [address] [place] [address] Consulting Physician Cardiology 09/07/17 Tess Brennan MD [address] [facility] [address] [place] [address] Referring Physician Gastroenterology 09/25/17 Tee Moura MD [address] [facility] [address] [place] [address] Referring Physician Surgery 11/29/17 Michel Linda MD [address] [address] Referring Physician General Surgery 03/11/19 Verena Crespo MD [address] [address] Consulting Physician Nephrology 03/13/19 documented as of this encounter
--- OUTSIDE RECORDS SUMMARY | 2025-05-09 10:05 | XMS_ITS | Encounter Summary ---
Author Organization [facility] Address [address] [place] [address] Phone Care Team Providers Care Correction Officer Supervisor Name Role Phone Valerie Grimaldo MD Primary Care Provider + [phone] Cody Polk MD Unavailable [phone] Wen Nelson MD Unavailable José Miguel Alva MD Unavailable Drew Martínez MD Unavailable [phone] Lopez Nunez DO Unavailable [phone] Autumn Chapman OD Unavailable +[phone] Alcon Camacho MD Unavailable [phone] Tess Brennan MD Unavailable [phone] Tee Moura MD Unavailable [phone] Michel Linda MD Unavailable Verena Crespo MD Unavailable [phone] Unknown, Notinfile Primary Care Provider Unavail able Julian Encarnacion MD Primary Care Provider Encounter Details Date Type Department Care Team (Late st Contact Info) Description 09/05/2017 Orders Only [facility] [address] [place] [address] Valerie Grimaldo MD [address] [place] [address] Social History Tobacco Use Types Packs/Day Years Used Date Smoking Tobacco: Never Smokeless Tobacco: Never Alcohol Use Standard Drinks/Week Comments No 0 (1 standard drink = 0.6 oz pur e alcohol) Comments No Sex and Gender Information Value Date Recorded Sex Assigned at Not on file Legal Sex Female 11:50 PM CNC MACHINE SETTER Gender Identity Not on file Sexual Orientation Not on file documented as of this encounter Functional Status * BP Location Answer Date of Assessment Author Left arm 09/08/2017 1:03 PM CDT Jered Prado MA * BP Location Answer Date of Assessment Author Left arm 09/08/2017 1:03 PM CHASET Jered Prado MA documented as of this encounter Plan of Treatment Not on file documented as of this encounter Procedures Procedure Name Priority Date/Time Associated Diagnosis Comments SCAN - RADIOLOGY/IMAGING 09/05/2017 10:47 AM CNC MACHINE SETTER documented in this encounter Results * SCAN - RADIOLOGY/IMAGING (09/05/2017 10:47 AM CNC MACHINE SETTER) Anatomical Region Laterality Modality Other Valerie Grimaldo MD Final Resu lt documented in this encounter Visit Diagnoses Not on filedocumented in this encounter Care Teams Correction Officer Supervisor Relationship Specialty Start Date End Date Valerie Grimaldo MD PCP - General 09/27/16 03/16/20 Unknown, Notinfile PCP - General 03/17/20 11/21/20 Julian Encarnacion MD 2 [facility] [address] [place] [address] PCP - General Family Medicine 11/22/20 [place] [address] [facility] [address] [place] [address] Pulmonary Disease 02/27/17 Wen Nelosn MD [address] [place] [address] Obstetrics and Gynecology 02/27/17 José Miguel Alva MD [address] [facility] [address] [place], [place] [address] Gynecologic Oncology 02/27/17 Drew Martínez MD [address] [place] [address] Orthopedic Surgery 02/27/17 Lopez Nunez DO [address] [place] [address] Consulting Physician Gastroenterology 04/25/17 Autumn Chapman OD [address] [place] [address] Optometry 04/28/17 [place] [address] [facility] [address] [place] [address] Consulting Physician Cardiology 09/07/17 Tess Brennan MD [address] [facility] [facility] [address] [place] [address] Referring Physician Gastroenterology 09/25/17 Tee Moura MD [address] [facility] [facility] [address] [place] [address] Referring Physician Surgery 11/29/17 Michel Linda MD 2 [facility] [address] [place] [address] Referring Physician General Surgery 03/11/19 Verena Crespo MD 2 [facility] [address] [place] [address] Consulting Physician Nephrology 03/13/19 documented as of this encounter
--- OUTSIDE RECORDS SUMMARY | 2025-05-09 10:05 | XMS_ITS | Encounter Summary ---
Author Organization [facility] Address [address] [place] [address] Phone Care Team Providers Care Art Sales Consultant Name Role Phone Travis Torrez MD Primary Care Provider [phone] Carolee Tay APRN, BUS DRIVER SUPERVISOR Unavailable Reason for Visit * Reason Comments Medication Refill Encounter Details Date Type Department Care Team (Late Contact Info) Description 03/06/2023 Refill [facility] - Family Medicine [facility] [address] [place] [address] Julian Encarnacion MD #[address] [address] Medication Refill Social History Tobacco Use Types [...] Encounters Date Type Department Care Team (Late Contact Info) Description 08/15/2025 10:00 AM OVERLAY PLASTICIAN Office Visit [facility] Medical [facility] - Cardiology - [place] [address] [place] [address] Carolee Tay APRN, BUS DRIVER SUPERVISOR [address] [place] [address] documented as of this encounter Visit Diagnoses Not on filedocumented in this encounter Additional Health Concerns Infection Onset Date Last Indicated Resolved Time COVID - 19 07/20/2024 07/20/2024 07/20/2024 3:10 AM OVERLAY PLASTICIAN Assessment Noted Time PHQ-9 Depression Total Score: 0 04/24/20 20 10:39 AM CDT documented as of this encounter Care Teams Art Sales Consultant Relationship Specialty Start Date End Date Travis Torrez MD PCP - General Family Medicine 05/21/22 Carolee Tay APRN, BUS DRIVER SUPERVISOR [address] [place] [address] Nurse Practitioner Certified Nurse Practitioner 08/20/24 documented as of this encounter
--- OUTSIDE RECORDS SUMMARY | 2025-05-09 10:05 | XMS_ITS | Encounter Summary ---
Author Organization [facility] Address [address] [place] [address] Phone Care Team Providers Care Model Maker Firearms Name Role Phone Valerie Grimaldo MD Primary Care Provider + [phone] Cody Polk MD Unavailable [phone] Wen Nelson MD Unavailable José Miguel Alva MD Unavailable [phone] Drew Martínez MD Unavailable [phone] Lopez Nunez DO Unavailable [phone] Autumn Chapman OD Unavailable [phone] Alcon Camacho MD Unavailable [phone] Tess Brennan MD Unavailable [phone] Tee Moura MD Unavailable [phone] Michel Linda MD Unavailable Verena Crespo MD Unavailable [phone] Unknown, Notinfile Primary Care Provider Unavail able Julian Encarnacion MD Primary Care Provider Encounter Details Date Type Department Care Team (Late st Contact Info) Description 10/10/2017 Orders Only [facility] Provider, MD [place] [address] [place] [address] Social History Tobacco Use Types Packs/Day Years Used Date Smoking Tobacco: Never Smokeless Tobacco: Never Alcohol Use Standard Drinks/Week Comments No 0 (1 standard drink = 0.6 oz pur e alcohol) Comments No Sex and Gender Information Value Date Recorded Sex Assigned at Not on file Legal Sex Female 11:50 PM HOT ROLLER Gender Identity Not on file Sexual Orientation [...] on filedocumented in this encounter Care Teams Model Maker Firearms Relationship Specialty Start Date End Date Valerie Grimaldo MD PCP - General 09/27/16 03/16/20 Unknown, Notinfile PCP - General 03/17/20 11/21/20 Julian Encarnacion MD [address] [address] PCP - General Family Medicine 11/22/20 [place] [address] [facility] [address] [place] [address] Pulmonary Disease 02/27/17 Wen Nelson MD [address] [place] [address] Obstetrics and Gynecology 02/27/17 José Miguel Alva MD [address] [facility] [address] [place] [address] Gynecologic Oncology 02/27/17 Drew Martínez MD [address] [place] [address] Orthopedic Surgery 02/27/17 Lopez Nunez DO [address] [place] [address] Consulting Physician Gastroenterology 04/25/17 Autumn Chapman OD [address] [place] [address] Optometry 04/28/17 [place] [address] [facility] [address] [place] [address] Consulting Physician Cardiology 09/07/17 Tess Brennan MD [address] [address] Referring Physician Gastroenterology 09/25/17 Tee Moura MD [address] [address] Referring Physician Surgery 11/29/17 Michel Linda MD [address] [address] Referring Physician General Surgery 03/11/19 Verena Crespo MD [address] [facility] [address] [place] [address] Consulting Physician Nephrology 03/13/19 documented as of this encounter
--- OUTSIDE RECORDS SUMMARY | 2025-05-09 10:05 | XMS_ITS | Encounter Summary ---
Author Organization [facility] Address [address] [place] [address] Phone Care Team Providers Care Energy Efficiency Specialist Name Role Phone Julian Encarnacion MD Primary Care Provider [phone] Travis Torrez MD Primary Care Provider [phone] Carolee Tay APRN, MANAGEMENT PSYCHOLOGIST Unavailable Reason for Visit * Reason Comments Medication Refill Encounter Details Date Type Department Care Team (Late st Contact Info) Description 12/04/2020 Refill [facility] - Family Medicine [facility] #[address] [place] [address] Julian Encarnacion MD #[address] [address] Medication Refill Social History Tobacco Use Types [...] complication, with long-term current use of insulin ([facility]) [facility] Julian Hines MD 4 months ago Type 2 diabetes mellitus without complication, with long-term current use of insulin ([facility]) [facility] Julian Hines MD 6 months ago Hematemesis, presence of nausea not specified [facility] Julian Graham MD 6 months ago Hematemesis, presence of nausea not specified [facility] Julian Graham MD 8 months ago Preop cardiovascular exam [facility] Julian Graham MD Upcoming Appointments Future Appointments In 1 month Julian Encarnacion MD [facility] In 2 months Cristina Garcia, TRACKMOBILE OPERATOR, MANAGEMENT PSYCHOLOGIST [facility] Oncology Services, [facility] TAX MANAGER CPA - Recent and Past Visits Recent Visits Date Type Provider Dept 10/18/20 Office Visit Julian Encarnacion MD [facility] 07/20/20 Office Visit Julian Encarnacion MD [facility] 06/08/20 Office Visit Julian Encarnacion MD [facility] 05/10/20 Office Visit [facility] MD [facility] 03/23/20 Office Visit Julian Encarnacion MD [facility] [place] 02/18/20 Office Visit Aletha Anand [facility] Showing recent visits within past 460 days with a meds authorizing provider and meeting all other requirements Future Appointments Date Type Provider Dept 01/17/21 Appointment Julian Encarnacion MD [facility] [place] Showing future appointments within next 90 days with a meds authorizing provider and meeting all other requirements documented in this encounter Plan of Treatment Upcoming Encounters Date Type Department Care Team (Late st Contact Info) Description 08/15/2025 10:00 AM NUMERICAL CONTROL NESTING OPERATOR Office Visit [facility] - Cardiology - [place] [address] [place] [address] Carolee Tay APRN, MANAGEMENT PSYCHOLOGIST [address] [place] [address] documented as of this encounter Visit Diagnoses Not on filedocumented in this encounter Additional Health Concerns Infection Onset Date Last Indicated Resolved Time COVID - 19 07/20/2024 07/20/2024 07/20/2024 3:10 AM NUMERICAL CONTROL NESTING OPERATOR Assessment Noted Time PHQ-9 Depression Total Score: 0 04/24/20 20 10:39 AM CDT documented as of this encounter Care Teams Energy Efficiency Specialist Relationship Specialty Start Date End Date Julian Encarnacion MD #[address] [address] PCP - General Family Medicine 03/28/20 04/23/22 Travis Torrez MD #[address] [address] PCP - General Family Medicine 05/21/22 Carolee Tay APRN, MANAGEMENT PSYCHOLOGIST [address] [place] [address] Nurse Practitioner Certified Nurse Practitioner 08/20/24 documented as of this encounter
--- OUTSIDE RECORDS SUMMARY | 2025-05-09 10:05 | XMS_ITS | Encounter Summary ---
Author Organization [facility] Address [address] [place] [address] Phone Care Team Providers Care Interior Design Coordinator Name Role Phone Julian Encarnacion MD Primary Care Provider [phone] Travis Torrez MD Primary Care Provider [phone] Carolee Tay APRN, SCHOOL TRAFFIC SUPERVISOR Unavailable Reason for Visit * Reason Comments Medication Refill Encounter Details Date Type Department Care Team (Late st Contact Info) Description 05/17/2021 Refill [facility] - Family [facility] #2 [place] [address] Julian Encarnacion MD #[address] [address] Medication Refill Social History Tobacco Use Types [...] 05/17/2021 10:12 AM CST Prescription pending signature ETING DATABASE ANALYST * Telephone Encounter - Dominique Conway RN [...] Visits 2 months ago Arthralgia, unspecified joint [facility] Julian Hines MD 7 months ago Type 2 diabetes mellitus without complication, with long-term current use of insulin ([facility]) [facility] Julian Graham MD 10 months ago Type 2 diabetes mellitus without complication, with long-term current use of insulin ([facility]) [facility] Julian Graham MD 11 months ago Hematemesis, presence of nausea not specified [facility] Julian Graham MD 1 year ago Hematemesis, presence of nausea not specified [facility] Julian Graham MD Upcoming Appointments INSURANCE AGENT - Recent and Past Visits Recent Visits Date Type Provider Dept 02/21/21 Office Visit Julian Encarnacion MD [facility] 10/18/20 Office Visit Julian Encarnacion MD [facility] 07/20/20 Office Visit Julian Encarnacion MD [facility] 06/08/20 Office Visit Julian Encarnacion MD [facility] 05/10/20 Office Visit Julian Encarnacion MD [facility] 03/23/20 Office Visit Julian Encarnacion MD [facility] 02/18/20 Office Visit Aletha Anand [facility] [place] Showing recent visits within past 460 days with a meds authorizing provider and meeting all other requirements Future Appointments No visits were found meeting these conditions. Showing future appointments within next 90 days with a meds authorizing provider and meeting all other requirements ETING DATABASE ANALYST documented in this encounter Plan of Treatment Upcoming Encounters Date Type Department Care Team (Late st Contact Info) Description 08/15/2025 10:00 AM MARKETING DATABASE ANALYST Office Visit [facility] - Cardiology [facility] #[address] [place] [address] Carolee Tay APRN, SCHOOL TRAFFIC SUPERVISOR [address] [place] [address] documented as of this encounter Visit Diagnoses Diagnosis Arthralgia, unspecified joint documented in this encounter Additional Health Concerns Infection Onset Date Last Indicated Resolved Time COVID - 19 07/20/2024 07/20/2024 07/20/2024 3:10 AM MARKETING DATABASE ANALYST Assessment Noted Time PHQ-9 Depression Total Score: 0 04/24/20 20 10:39 AM CDT documented as of this encounter Care Teams Interior Design Coordinator Relationship Specialty Start Date End Date Julian Enacrnacion MD #[address] [address] PCP - General Family Medicine 03/28/20 04/23/22 Travis Torrez MD #[address] [address] PCP - General Family Medicine 05/21/22 Carolee Tay APRN, SCHOOL TRAFFIC SUPERVISOR [address] [place] [address] Nurse Practitioner Certified Nurse Practitioner 08/20/24 documented as of this encounter
--- OUTSIDE RECORDS SUMMARY | 2025-05-09 10:05 | XMS_ITS | Encounter Summary ---
Author Organization [facility] Address [address] [place] [address] Phone Care Team Providers Care Needle Felt Making Machine Operator Name Role Phone Julian Encarnacion MD Primary Care Provider [phone] Travis Torrez MD Primary Care Provider [phone] Carolee Tay APRN, SPA DIRECTOR/FINANCE Unavailable Reason for Visit * Reason Comments Medication Refill Encounter Details Date Type Department Care Team (Late st Contact Info) Description 02/15/2021 Refill [facility] - Family [facility] #[address] [place] [address] Julian Enacrnacion MD #[address] [address] Medication Refill Social History Tobacco Use Types [...] Notes * Telephone Encounter - Kenyetta Moran Caroline - 02/19/2021 9:31 AM CDT Scheduled 8/25 , pt states she needs refills now. [...] with long-term current use of insulin (HCC) [facility] Julian Graham MD 7 months ago Type 2 diabetes mellitus without complication, with long-term current use of insulin (HCC) [facility] Julian Graham MD 8 months ago Hematemesis, presence of nausea not specified [facility] Julian Graham MD 9 months ago Hematemesis, presence of nausea not specified [facility] Julian Graham MD 10 months ago Preop cardiovascular exam [facility] Julian Graham MD Upcoming Appointments Future Appointments In 1 week Cristina Garcia APN, SPA DIRECTOR/FINANCE [facility] Oncology Services, [facility] FOUNDRY SUPERINTENDANT - Recent and Past Visits Recent Visits Date Type Provider Dept 10/18/20 Office Visit [facility] 07/20/20 Office Visit Julian Encarnacion MD [facility] 06/08/20 Office Visit Julian Encarnacion MD [facility] 05/10/20 Office Visit Julian Encarnacion MD [facility] 03/23/20 Office Visit Julian [facility]acion MD [facility] 02/18/20 Office Visit Aletha Anand, [facility] Showing recent visits within past [...] st Contact Info) Description 08/15/2025 10:00 AM APPAREL FASHION DESIGNER Office Visit [facility] - Cardiology [facility] #[address] [place] [address] Carolee Tay APRN, SPA DIRECTOR/FINANCE [address] [place] [address] documented as of this encounter Visit Diagnoses Not on filedocumented in this encounter Additional Health Concerns Infection Onset Date Last Indicated Resolved Time COVID - 19 07/20/2024 07/20/2024 07/20/2024 3:10 AM APPAREL FASHION DESIGNER Assessment Noted Time PHQ-9 Depression Total Score: 0 04/24/20 20 10:39 AM CDT documented as of this encounter Care Teams Needle Felt Making Machine Operator Relationship Specialty Start Date End Date Julian Encarnacion MD #[address] [address] PCP - General Family Medicine 03/28/20 04/23/22 Travis Torrez MD #[address] [address] PCP - General Family Medicine 05/21/22 Carolee Tay APRN, SPA DIRECTOR/FINANCE [address] [place] [address] Nurse Practitioner Certified Nurse Practitioner 08/20/24 documented as of this encounter
--- OUTSIDE RECORDS SUMMARY | 2025-05-09 10:05 | XMS_ITS | Encounter Summary ---
Author Organization [facility] Address [address] [place] [address] Phone Care Team Providers Care Foreign Broadcast Specialist Name Role Phone Valerie Grimaldo MD Primary Care Provider + [phone] Cody Polk MD Unavailable Wen Nelson MD Unavailable José Miguel Alva MD Unavailable Drew Martínez MD Unavailable [phone] Lopez Nunez DO Unavailable [phone] Autumn Chapman OD Unavailable [phone] Alcon Camacho MD Unavailable [phone] Tess Brennan MD Unavailable [phone] Tee Moura MD Unavailable [phone] Michel Linda MD Unavailable Verena Crespo MD Unavailable [phone] Unknown, Notinfile Primary Care Provider Unavail able Julian Encarnacion MD Primary Care Provider Encounter Details Date Type Department Care Team (Late st Contact Info) Description 01/16/2017 Orders Only [facility] [address] [place] [address] Valerie Grimaldo MD [address] [place] [address] Diabetes mellitus without complication (HCC) (Primary Dx) Social History Tobacco Use Types Packs/Day Years Used Date Smoking Tobacco: Never Alcohol Use Standard Drinks/Week Comments No 0 (1 standard drink = 0.6 oz pur e alcohol) Comments Unknown Sex and Gender Information Value Date Recorded Sex Assigned at Not on file Legal Sex Female 11:50 PM DIRECTOR TRUST Gender Identity Not on file Sexual Orientation [...] uncontrolled documented in this encounter Care Teams Foreign Broadcast Specialist Relationship Specialty Start Date End Date Valerie Grimaldo MD PCP - General 09/27/16 03/16/20 Unknown, Notinfile PCP - General 03/17/20 11/21/20 Julian Encarnacion MD 2 [facility] [address] [place] [address] PCP - General Family Medicine 11/22/20 [place] [address] [facility] [place] [address] [place] [address] Pulmonary Disease 02/27/17 Wen Nelson MD [address] [place] [address] Obstetrics and Gynecology 02/27/17 José Miguel Alva MD [address] [facility] [address] [place] [address] Gynecologic Oncology 02/27/17 Drew Martínez MD [address] [facility] [address] [place] [address] Orthopedic Surgery 02/27/17 Lopez Nunez DO [address] [place] [address] Consulting Physician Gastroenterology 04/25/17 Autumn Chapman OD [address] [place] [address] Optometry 04/28/17 [place] [address] [facility] [facility] [place] [place] [address] [place] [address] Consulting Physician Cardiology 09/07/17 Tess Brennan MD 2 [facility] [address] [address] Referring Physician Gastroenterology 09/25/17 Tee Moura MD [address] [facility] [address] [address] Referring Physician Surgery 11/29/17 Michel Linda MD [address] [facility] [address] [address] Referring Physician General Surgery 03/11/19 Verena Crespo MD [address] [facility] [address] [address] Consulting Physician Nephrology 03/13/19 documented as of this encounter
--- OUTSIDE RECORDS SUMMARY | 2025-05-09 10:05 | XMS_ITS | Encounter Summary ---
Author Organization [facility] Address [address] [place] [address] Phone Care Team Providers Care Plant Sprayer Name Role Phone Valerie Grimaldo MD Primary Care Provider + [phone] Cody Polk MD Unavailable [phone] Wen Nelson MD Unavailable [phone] José Miguel Alva MD Unavailable [phone] Drew Martínez MD Unavailable [phone] Lopez Nunez DO Unavailable [phone] Autumn Chapman OD Unavailable +[phone] Alcon Camacho MD Unavailable [phone] Tess Brennan MD Unavailable [phone] Tee Moura MD Unavailable [phone] Michel Linda MD Unavailable Verena Crespo MD Unavailable [phone] Unknown, Notinfile Primary Care Provider Unavail able Julian Encarnacion MD Primary Care Provider Encounter Details Date Type Department Care Team (Late st Contact Info) Description 10/20/2017 Orders Only [facility] Provider, MD Tayler [address] [place] [address] Social History Tobacco Use Types Packs/Day Years Used Date Smoking Tobacco: Never Smokeless Tobacco: Never Alcohol Use Standard Drinks/Week Comments No 0 (1 standard drink = 0.6 oz pur e alcohol) Comments No Sex and Gender Information Value Date Recorded Sex Assigned at Not on file 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 Gender Identity Not on file Sexual Orientation [...] on filedocumented in this encounter Care Teams Plant Sprayer Relationship Specialty Start Date End Date Valerie Grimaldo MD PCP - General 09/27/16 03/16/20 Unknown, Notinfile PCP - General 03/17/20 11/21/20 Julian Encarnacion MD [address] [address] PCP - General Family Medicine 11/22/20 [place] [address] [facility] [address] [place] [address] Pulmonary Disease 02/27/17 Wen Nelson MD [address] [place] [address] Obstetrics and Gynecology 02/27/17 José Miguel Alva MD [address] [facility] [address] [place] [address] Gynecologic Oncology 02/27/17 Drew Martínez MD [address] [place] [address] Orthopedic Surgery 02/27/17 Lopez Nunez DO [address] [place] [address] Consulting Physician Gastroenterology 04/25/17 Autumn Chapman OD [address] [place] [address] Optometry 04/28/17 [place] [address] [facility] [address] [place] [address] Consulting Physician Cardiology 09/07/17 Tess Brennan MD [address] [address] Referring Physician Gastroenterology 09/25/17 Tee Moura MD [address] [address] Referring Physician Surgery 11/29/17 Michel Linda MD [address] [address] Referring Physician General Surgery 03/11/19 Verena Crespo MD 2 [facility] [address] [place] [address] Consulting Physician Nephrology 03/13/19 documented as of this encounter
--- OUTSIDE RECORDS SUMMARY | 2025-05-09 10:05 | XMS_ITS | Encounter Summary ---
Author Organization [facility] Address [address] [place] [address] Phone Care Team Providers Care Freight Sales Broker Name Role Phone Julian Encarnacion MD Primary Care Provider [phone] Travis Torrez MD Primary Care Provider [phone] Carolee Tay APRN, JUNIOR LINUX SYSTEMS ADMINISTRATOR Unavailable Reason for Visit * Reason Comments Medication Refill Encounter Details Date Type Department Care Team (Late st Contact Info) Description 07/20/2021 Refill [facility] #2 [place] [address] Julian Encarnacion MD #[address] [address] Medication Refill Social History Tobacco Use Types [...] (GLUCOPHAGE-XR) 500 MG TABLET SR 24 HR [[id number]] 103 Status: Active Ordering user: Julian Encarnacion MD 11/15/20 103 Authorized by: Julian Encarnacion MD Frequency: ??11/15/20 - Until Discontinued Released by: Julian Encarnacion MD 11/15/201030 [id number] TECHNOLOGIST documented in this encounter Plan of Treatment Upcoming Encounters Date Type Department Care Team (Late st Contact Info) Description 08/15/2025 10:00 AM ARRT TECHNOLOGIST Office Visit [facility] #2 [place] [address] Carolee Tay APRN, JUNIOR LINUX SYSTEMS ADMINISTRATOR #2 [place] [address] documented as of this encounter Visit Diagnoses Not on filedocumented in this encounter Additional Health Concerns Infection Onset Date Last Indicated Resolved Time COVID - 19 07/20/2024 07/20/2024 07/20/2024 3:10 AM ARRT TECHNOLOGIST Assessment Noted Time PHQ-9 Depression Total Score: 0 04/24/20 10:39 AM CDT documented as of this encounter Care Teams Freight Sales Broker Relationship Specialty Start Date End Date Julian Encarnacion MD #[address] [address] PCP - General Family Medicine 03/28/20 04/23/22 Travis Torrez MD #[address] [facility] [address] [address] PCP - General Family Medicine 05/21/22 Carolee Tay APRN, JUNIOR LINUX SYSTEMS ADMINISTRATOR #[address] [place] [address] Nurse Practitioner Certified Nurse Practitioner 08/20/24 documented as of this encounter
--- OUTSIDE RECORDS SUMMARY | 2025-05-09 10:05 | XMS_ITS | Encounter Summary ---
Author Organization [facility] Address [address] [place] [address] Phone Care Team Providers Care Boiler Coverer Helper Name Role Phone Julian Encarnacion MD Primary Care Provider [phone] Travis Torrez MD Primary Care Provider [phone] Carolee Tay APRN, PRINCIPAL RESEARCH ECONOMIST Unavailable Reason for Visit * Reason Comments Medication Refill Encounter Details Date Type Department Care Team (Late st Contact Info) Description 11/14/2020 Refill [facility] #2 [place] [address] Julian Encarnacion MD #[address] [address] Medication Refill Social History Tobacco Use Types [...] Dept 10/18/20 Office Visit Julian Encarnacion MD [facility] [place] 07/20/20 Office Visit Julian Encarnacion MD [facility] 06/08/20 Office Visit Julian Encarnacion MD [facility] [place] Showing recent visits within past 182 days and meeting all other requirements Future Appointments Date Type Provider Dept 01/17/21 Appointment Julian Encarnacion MD [facility] [place] Showing future appointments within next 90 days and meeting all other requirements Passed - HgA1C on record in past 6 months HGB-A1C Date Value Ref Range Status 10/18/2020 7.0 % Final documented in this encounter Plan of Treatment Upcoming Encounters Date Type Department Care Team (Late st Contact Info) Description 08/15/2025 10:00 AM TROLLEY OPERATOR Office Visit [facility] - [facility]iology - [place] #2 [place] [address] Carolee Tay APRN, PRINCIPAL RESEARCH ECONOMIST #2 [place] [address] documented as of this encounter Visit Diagnoses Not on filedocumented in this encounter Additional Health Concerns Infection Onset Date Last Indicated Resolved Time COVID - 19 07/20/2024 07/20/2024 07/20/2024 3:10 AM TROLLEY OPERATOR Assessment Noted Time PHQ-9 Depression Total Score: 0 04/24/20 10:39 AM CDT documented as of this encounter Care Teams Boiler Coverer Helper Relationship Specialty Start Date End Date Julian Encarnacion MD #[address] [address] PCP - General Family Medicine 03/28/20 04/23/22 Travis Torrez MD #[address] [address] PCP - General Family Medicine 05/21/22 Carolee Tay APRN, PRINCIPAL RESEARCH ECONOMIST #2 [place] [address] Nurse Practitioner Certified Nurse Practitioner 08/20/24 documented as of this encounter
--- OUTSIDE RECORDS SUMMARY | 2025-05-09 10:05 | XMS_ITS | Encounter Summary ---
Author Organization [facility] Address [address] [place] [address] Phone Care Team Providers Care Student Services Dean Name Role Phone Valerie Grimaldo MD Primary Care Provider + [phone] Cody Polk MD Unavailable [phone] Wen Nelson MD Unavailable José Miguel Alva MD Unavailable [phone] Drew Martínez MD Unavailable [phone] Lopez Nunez DO Unavailable [phone] Autumn Chapman OD Unavailable [phone] Alcon Camacho MD Unavailable [phone] Tess Brennan MD Unavailable [phone] Tee Moura MD Unavailable [phone] Michel Linda MD Unavailable Veerna Crespo MD Unavailable [phone] Unknown, Notinfile Primary Care Provider Unavail able Julian Encarnacion MD Primary Care Provider Encounter Details Date Type Department Care Team (Late st Contact Info) Description 09/08/2017 Orders Only [facility] Provider, MD Tayler [address] [place] [address] Social History Tobacco Use Types Packs/Day Years Used Date Smoking Tobacco: Never Smokeless Tobacco: Never Alcohol Use Standard Drinks/Week Comments No 0 (1 standard drink = 0.6 oz pur e alcohol) Comments No Sex and Gender Information Value Date Recorded Sex Assigned at Not on file 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 Gender Identity Not on file Sexual Orientation Not on file documented as of this encounter Functional Status * BP Location Answer Date of Assessment Author Left arm 09/08/2017 1:03 PM CDT Jered Prado MA * BP Location Answer Date of Assessment Author Left arm 09/08/2017 1:03 PM CDT Jered Prado MA documented as of this encounter Plan of Treatment Not on file documented as of this encounter Procedures Procedure Name Priority Date/Time Associated Diagnosis Comments DISCHARGE LABORATORY CUMULATIVE REPORT 09/08/2017 12:00 AM CDT documented in this encounter Results * DISCHARGE LABORATORY CUMULATIVE REPORT (09/08/2017 12:00 AM CDT) Narrative 09/08/2017 12:00 AM CDT Ordered by an unspecified provider. us Historical Provider LAB BLOOD ORDERABLES Soledad l Result documented in this encounter Visit Diagnoses Not on filedocumented in this encounter Care Teams Student Services Dean Relationship Specialty Start Date End Date Valerie Grimaldo MD PCP - General 09/27/16 03/16/20 Unknown, Notinfile PCP - General 03/17/20 11/21/20 Julian Encarnacion MD 2 [facility] [address] [place] [address] PCP - General Family Medicine 11/22/20 [place] [address] [facility] [address] [place] [address] Pulmonary Disease 02/27/17 Wen Nelson MD [address] [place] [address] Obstetrics and Gynecology 02/27/17 José Miguel Alva MD [facility] [address] [place], [place] [id number] Gynecologic Oncology 02/27/17 Drew Martínez MD [address] [place] [address] Orthopedic Surgery 02/27/17 Lopez Nunez DO [address] [place] [address] Consulting Physician Gastroenterology 04/25/17 Autumn Chapman OD [address] [place] [address] Optometry 04/28/17 [place] [address] [facility] [address] [place] [address] Consulting Physician Cardiology 09/07/17 Tess Brennan MD [address] [facility] [address] [address] Referring Physician Gastroenterology 09/25/17 Tee Moura MD [address] [address] [address] Referring Physician Surgery 11/29/17 Michel Linda MD [address] [place] [address] [address] Referring Physician General Surgery 03/11/19 Verena Crespo MD [address] [address] Consulting Physician Nephrology 03/13/19 documented as of this encounter
--- OUTSIDE RECORDS SUMMARY | 2025-05-09 10:05 | XMS_ITS | Encounter Summary ---
Author Organization [facility] Address [address] [place] [address] Phone Care Team Providers Care Programmer Developer Name Role Phone Julian Encarnacion MD Primary Care Provider [phone] Travis Torrez MD Primary Care Provider [phone] Carolee Tay APRN, DRYWALL APPLICATOR Unavailable Reason for Visit * Reason Comments Medication Refill Encounter Details Date Type Department Care Team (Late st Contact Info) Description 10/16/2020 Refill [facility] #2 [place] [address] Julian Encarnacion MD #[address] [address] Medication Refill Social History Tobacco Use Types [...] with long-term current use of insulin (HCC) [facility] - Julian Hines MD 4 months ago Hematemesis, presence of nausea not specified [facility] Family Medicine Julian Graham MD 5 months ago Hematemesis, presence of nausea not specified [facility] Julian Graham MD 6 months ago Preop cardiovascular exam [facility] Julian Graham MD 8 months ago Coronary artery disease with angina pectoris, unspecified vessel or lesion type, unspecified whether [place] or transplanted heart (HCC) [facility] Aletha Amaya, PAC Upcoming Appointments Future Appointments Tomorrow Julian Encarnacion MD [facility] [place], [facility] In 6 days Cristina Garcia APN, DRYWALL APPLICATOR [facility] On[facility], [facility] In [address] VACCINE CLINIC [facility] TRUCK MANAGER - Recent and Past Visits Recent Visits Date Type Provider Dept 07/20/20 Office Visit Julian Encarnacion MD [facility] [place] 06/08/20 Office Visit [facility] Office Visit [facility] 03/23/20 Office Visit Julian Encarnacion MD [facility] 02/18/20 Office Visit Aletha Anand PAC [facility] Showing recent visits within past 460 days with a meds authorizing provider and meeting all other requirements Future Appointments Date Type Provider Dept 10/18/20 Appointment Julian Encarnacion MD [facility] Showing future appointments within next 90 days with a meds authorizing provider and meeting all other requirements documented in this encounter Plan of Treatment Upcoming Encounters Date Type Department Care Team (Late st Contact Info) Description 08/15/2025 10:00 AM POWER AND RECOVERY SUPERVISOR Office Visit [facility] #2 [place] [address] Carolee Tay APRN, DRYWALL APPLICATOR #[address] [place] [address] documented as of this encounter Visit Diagnoses Not on filedocumented in this encounter Additional Health Concerns Infection Onset Date Last Indicated Resolved Time COVID - 19 07/20/2024 07/20/2024 07/20/2024 3:10 AM POWER AND RECOVERY SUPERVISOR Assessment Noted Time PHQ-9 Depression Total Score: 0 04/24/20 10:39 AM CDT documented as of this encounter Care Teams Programmer Developer Relationship Specialty Start Date End Date Julian Encarnacion MD #[address] [address] PCP - General Family Medicine 03/28/20 04/23/22 Travis Torrez MD #[address] [place] [address] PCP - General Family Medicine 05/21/22 Carolee Tay APRN, DRYWALL APPLICATOR #2 [place] [address] Nurse Practitioner Certified Nurse Practitioner 08/20/24 documented as of this encounter
--- OUTSIDE RECORDS SUMMARY | 2025-05-09 10:05 | XMS_ITS | Encounter Summary ---
Author Organization [facility] Address [address] [place] [address] Phone Care Team Providers Care Gambling Supervisor Name Role Phone Julian Encarnacion MD Primary Care Provider [phone] Travis Torrez MD Primary Care Provider [phone] Carolee Tay APRN, CUSTOMER ACQUISITION MANAGER Unavailable Reason for Visit * Reason Comments Medication Refill Encounter Details Date Type Department Care Team (Late st Contact Info) Description 06/20/2021 Refill [facility] #2 [place] [address] Julian Encarnacion MD #[address] [address] Medication Refill Social History Tobacco Use Types [...] Telephone Encounter - Kenyetta Moran Caroline - 06/27/2021 10:55 AM MANAGER GROUP HOME Left voicemail [facility] * Telephone Encounter - oDminique Conway RN - 06/26/2021 10:52 AM CST Patient needs appointment [facility] * Telephone Encounter - Carola Patiño MA - 06/25/2021 3:43 PM MANAGER GROUP HOME Message left on Medication refill voice mail: Patient would like to know why the doctor has refusedher pain medication (Ty#3) ? See previous message from 06/21/21 . Please call patient @[phone] [facility] * Telephone Encounter - Kenyetta Moran RMA - 06/21/2021 11:19 AM MANAGER GROUP HOME Left voicemiail [facility] * Telephone Encounter - Dominique Conway RN - 06/20/2021 3:56 PM CST PCP requests patient appointment [facility] * Telephone Encounter - Dominique Conway RN [...] Julian Encarnacion MD [facility] [place] 10/18/20 Office Visit [facility] Office Visit Julian Encarnacion MD [facility] Showing recent visits within past 365 days and meeting all other requirements Future Appointments No visits were found meeting these conditions. Showing future appointments within next 90 days and meeting all other requirements [facility] documented in this encounter Plan of Treatment Upcoming Encounters Date Type Department Care Team (Late st Contact Info) Description 08/15/2025 10:00 AM MANAGER GROUP HOME Office Visit [facility]2 [place] [address] Carolee Tay APRN, CUSTOMER ACQUISITION MANAGER #2 [place] [address] documented as of this encounter Visit Diagnoses Diagnosis Arthralgia, unspecified joint documented in this encounter Additional Health Concerns Infection Onset Date Last Indicated Resolved Time COVID - 19 07/20/2024 07/20/2024 07/20/2024 3:10 AM MANAGER GROUP HOME Assessment Noted Time PHQ-9 Depression Total Score: 0 04/24/20 20 10:39 AM CDT documented as of this encounter Care Teams Gambling Supervisor Relationship Specialty Start Date End Date Julian Encarnacion MD #[address] [address] PCP - General Family Medicine 03/28/20 04/23/22 Travis Torrez MD #[address] [address] PCP - General Family Medicine 05/21/22 Carolee Tay APRN, CUSTOMER ACQUISITION MANAGER #2 [place] [address] Nurse Practitioner Certified Nurse Practitioner 08/20/24 documented as of this encounter
--- OUTSIDE RECORDS SUMMARY | 2025-05-09 10:05 | XMS_ITS | Encounter Summary ---
Author Organization [facility] Address [address] [place] [address] Phone Care Team Providers Care Maintenance Mechanic Elevators Name Role Phone Valerie Grimaldo MD Primary Care Provider + [phone] Cody Polk MD Unavailable [phone] Wen Nelson MD Unavailable José Miguel Alva MD Unavailable [phone] Drew Martínez MD Unavailable [phone] Lopez Nunez DO Unavailable [phone] Autumn Chapman OD Unavailable [phone] Alcon Camacho MD Unavailable [phone] Tess Brennan MD Unavailable [phone] Tee Moura MD Unavailable [phone] Michel Linda MD Unavailable Verena Crespo MD Unavailable [phone] Unknown, Notinfile Primary Care Provider Unavail able Julian Encarnacion MD Primary Care Provider Encounter Details Date Type Department Care Team (Late st Contact Info) Description 10/01/2017 Orders Only [facility] Provider, MD Tayler [address] [place] [address] Social History Tobacco Use Types Packs/Day Years Used Date Smoking Tobacco: Never Smokeless Tobacco: Never Alcohol Use Standard Drinks/Week Comments No 0 (1 standard drink = 0.6 oz pur e alcohol) Comments No Sex and Gender Information Value Date Recorded Sex Assigned at Not on file Legal Sex Female 11:50 PM TOGGLE PRESS OPERATOR Gender Identity Not on file [...] on filedocumented in this encounter Care Teams Maintenance Mechanic Elevators Relationship Specialty Start Date End Date Valerie Grimaldo MD PCP - General 09/27/16 03/16/20 Unknown, Notinfile PCP - General 03/17/20 11/21/20 Julian Encarnacion MD [address] [address] PCP - General Family Medicine 11/22/20 [place] [address] [facility] [address] [place] [address] Pulmonary Disease 02/27/17 Wen Nelson MD [address] [place] [address] Obstetrics and Gynecology 02/27/17 José Miguel Alva MD [address] [facility] [address] [place] [address] Gynecologic Oncology 02/27/17 Drew Martínez MD [address] [place] [address] Orthopedic Surgery 02/27/17 Lopez Nunez DO [address] [place] [address] Consulting Physician Gastroenterology 04/25/17 Autumn Chapman OD [address] [place] [address] Optometry 04/28/17 [place] [address] [facility] [address] [place] [address] Consulting Physician Cardiology 09/07/17 Tess Brennan MD [address] [address] Referring Physician Gastroenterology 09/25/17 Tee Moura MD [address] [address] Referring Physician Surgery 11/29/17 Michel Linda MD [address] [address] Referring Physician General Surgery 03/11/19 Verena Crespo MD [address] [facility] [address] [place] [address] Consulting Physician Nephrology 03/13/19 documented as of this encounter
--- OUTSIDE RECORDS SUMMARY | 2025-05-09 10:05 | XMS_ITS | Encounter Summary ---
Author Organization [facility] Address [address] [place] [address] Phone Care Team Providers Care Changer Fixer Name Role Phone Julian Encarnacion MD Primary Care Provider [phone] Travis Torrez MD Primary Care Provider [phone] Carolee Tay APRN, CAFETERIA FOOD SERVER Unavailable Reason for Visit * Reason Comments Medication Refill Encounter Details Date Type Department Care Team (Late st Contact Info) Description 12/08/2020 Refill [facility] #[facility] [place] [address] Julian Encarnacion MD [address] [address] Medication Refill Social History Tobacco Use Types [...] st Contact Info) Description 08/15/2025 10:00 AM IMMUNOLOGY TEACHER Office Visit [facility] - [facility]iology - [place] #2 [place] [address] Carolee Tay APRN, CAFETERIA FOOD SERVER [address] [place] [address] documented as of this encounter Visit Diagnoses Not on filedocumented in this encounter Additional Health Concerns Infection Onset Date Last Indicated Resolved Time COVID - 19 07/20/2024 07/20/2024 07/20/2024 3:10 AM IMMUNOLOGY TEACHER Assessment Noted Time PHQ-9 Depression Total Score: 0 04/24/20 10:39 AM CDT documented as of this encounter Care Teams Changer Fixer Relationship Specialty Start Date End Date Julian Encarnacion MD #[address] [address] PCP - General Family Medicine 03/28/20 04/23/22 Travis Torrez MD #[address] [address] PCP - General Family Medicine 05/21/22 Carolee Tay APRN, KIM #2 [facility] [place] [address] Nurse Practitioner Certified Nurse Practitioner 08/20/24 documented as of this encounter
--- OUTSIDE RECORDS SUMMARY | 2025-05-09 10:05 | XMS_ITS | Encounter Summary ---
Author Organization [facility] Address [address] [place] [address] Phone Care Team Providers Care Ladies Suit Operator Name Role Phone Valerie Grimaldo MD Primary Care Provider + [phone] Cody Polk MD Unavailable Wen Nelson MD Unavailable José Miguel Alva MD Unavailable [phone] Drew Martínez MD Unavailable [phone] Lopez Nunez DO Unavailable [phone] Autumn Chapman OD Unavailable [phone] Alcon Camacho MD Unavailable [phone] Tess Brennan MD Unavailable [phone] Tee Moura MD Unavailable [phone] Michel Linda MD Unavailable Verena Crespo MD Unavailable [phone] Unknown, Notinfile Primary Care Provider Unavail able Julian Encarnacion MD Primary Care Provider [phone] Encounter Details Date Type Department Care Team (Late st Contact Info) Description 12/20/2016 Orders Only [facility] [address] [place] [address] Lisa Romano LPN Social History Tobacco Use Types Packs/Day Years Used Date Smoking Tobacco: Never Alcohol Use Standard Drinks/Week Comments No 0 (1 standard drink = 0.6 oz pur e alcohol) Comments Unknown Sex and Gender Information Value Date Recorded Sex Assigned at Not on file Legal Sex Female 11:50 PM VAMP SEAMER Gender Identity Not on file Sexual Orientation Not on file documented as of this encounter Plan of Treatment Not on file documented as of this encounter Visit Diagnoses Not on filedocumented in this encounter Care Teams Ladies Suit Operator Relationship Specialty Start Date End Date Valerie Grimaldo MD PCP - General 09/27/16 03/16/20 Unknown, Notinfile PCP - General 03/17/20 11/21/20 Julian Encarnacion MD 2 [facility] [address] [place] [address] PCP - General Family Medicine 11/22/20 [place] [address] [facility] [address] [place] [address] Pulmonary Disease 02/27/17 Wen Nelson MD [address] [place] [address] Obstetrics and Gynecology 02/27/17 José Miguel Alva MD [address] [facility] [address] [place] [address] Gynecologic Oncology 02/27/17 Drew Martínez MD [address] [place] [address] Orthopedic Surgery 02/27/17 Lopez Nunez DO [address] [address] Consulting Physician Gastroenterology 04/25/17 Autumn Chapman OD [address] [place] [address] Optometry 04/28/17 [place] [address] [facility] [address] [place] [address] Consulting Physician Cardiology 09/07/17 Tess Brennan MD [address] [facility] [address] [address] Referring Physician Gastroenterology 09/25/17 Tee Moura MD [address] [facility] [address] [address] Referring Physician Surgery 11/29/17 Michel Linda MD 2 [facility] [address] [address] Referring Physician General Surgery 03/11/19 Verena Crespo MD 2 [facility] [address] [address] Consulting Physician Nephrology 03/13/19 documented as of this encounter
--- OUTSIDE RECORDS SUMMARY | 2025-05-09 10:05 | XMS_ITS | Clinical Summary ---
Author Organization [facility] Address [address], [address] [address] Phone Care Team Providers Care Dental Appliance Fixer Name Role Phone Travis Torrez MD Primary Care Provider [phone] Carolee Tay APRN, DIRT BIKE RACER Unavailable Allergies Active Allergy Reactions Criticality Noted [...] drink = 0.6 oz pur e alcohol) [facility] Utilities Answer Date Recorded In the past 12 months has e [employer], gas, oil, or water [employer] threatened to shut off services in your home? No 07/20/2024 Social Connection and Isolation Panel Answer Date Recorded In a typical week, how many times do you talk on the phone with family, friends, or neighbors? Patient declined 07/20/2024 How often do you get togethe r with friends or relatives? Patient declined 07/20/2024 How often do you attend synagogue or confucianism serv ices? Patient declined 07/20/2024 Do you [...] Total Score - Questions 1-9 0 03/31 [facility] [place] of Occupat ional Health - Occupational Stress [...] any time in the past 12 m [facility], were you homeless or living in a residential (including now)? No 07/20/2024 Comments No Sex and Gender Information Value Date Recorded Sex Assigned at Not on file Legal Sex Female 7:37 PM CDT Gender Identity Not on file Sexual Orientation Not on file Last Filed Vital Signs Vital Sign Reading Time Taken Comments Blood Pressure 126/62 08/19/2024 3:01 PM [facility] Pulse 81 08/19/2024 3:01 PM [facility] Temperature 36.3 C (97.3 F) 08/19/2024 3:01 PM [facility] Respiratory Rate 16 08/19/2024 3:01 PM [facility] Oxygen Saturation 97% 08/19/2024 3:01 PM [facility] Inhaled Oxygen Concentration - - Weight 105.2 kg (232 lb) 08/19/2024 3:01 PM [facility] Height 157.5 cm (5' 2) 08/19/2024 3:01 PM [facility] Body Mass Index 42.43 08/19/2024 3:01 PM [facility] Plan of Treatment Upcoming Encounters Date Type Department Care Team (Late st Contact Info) Description 08/15/2025 10:00 AM [facility] Office Visit [facility] - [place] [address] [place] [id number] Carolee Tay, REAL ESTATE SALES ASSOCIATE, DIRT BIKE RACER [address] [place] [address] Health Maintenance Due Date Last Done Comments Diabetes: Eye Exam 1950 Diabetes: Foot Exam 1950 Medicare Initial AWV G0438 07/31/2017 Td Immunization Every 10 Years (Adults With [...] this topic Medical Devices Implanted Type Area Supervisor Newspaper Deliveries Device Identifier Shelf Expiration Date Model / Serial / Lot Stent Coronary Leta [employer]ience Everolimus Eluting [id number] - [id number] Implanted:Qty: 1 on 04/23/2018 by [facility] IMPLANT N/A: Coronary [employer] 02/17/2019 [id number] Stent Coronary Leta Xience Everolimus Eluting [id number] - [id number] Implanted:Qty: 1 on 04/23/2018 by Joan Avalos MD at [facility] IMPLANT N/A: Coronary [employer] 01/15/2019 [id number] Procedures Procedure Name Priority Date/Time Associated Diagnosis Comments HEMOGLOBIN A1C W/ ESTIMATED GLUCOSE STAT 07/20/2024 5:18 AM [facility] CMP (COMPREHENSIVE METABOLIC PANEL) STAT 07/19/2024 9:48 PM [facility] DUY SCREENING BILATERAL DIGITAL W CAD W HARLEEN Routine 08/06/2022 3:00 PM [facility] Encounter for screening mammogram for malignant neoplasm of breast Asymptomatic menopausal state DUY BONE DENSITOMETRY AXIAL SKELETON Routine 08/06/2022 2:30 PM [facility] Encounter for screening mammogram for malignant neoplasm of breast Asymptomatic menopausal state STOOL, OCCULT BLOOD, DIAGNOSTIC, VIA GUAIAC STAT 04/30/2020 11:15 AM [facility] HEPATITIS PANEL ACUTE (AHP) Routine 02/25/2019 3:42 AM CDT from Last 3 Months or Most Recently Relevant to Health Maintenance Results * (ABNORMAL) Hemoglobin A1C w/ Estimated Glucose (07/20/2024 5:18 AM [facility]) Pathologist [facility] HGB-A1C 6.3(H) 4.0 - 6.0 % 07/20/2024 5:57 AM [facility] Est Average Glucose 134.1 mg/dL 07/20/2024 5:57 AM [facility] Blood Venipuncture / Unknown 07/20/2024 5:18 AM [facility] 07/20/2024 5:37 AM [facility] Narrative [facility] - 07/20/2024 5:57 AM [facility] HEMOGLOBIN A1C: DIABETIC PATIENTS: WELL-CONTROLLED: 6.2 - 7.0 INTERMEDIATE WELL-CONTROLLED: 7.0 - 9.0 POORLY-CONTROLLED: >9.0 Specimens containing greater than 5% of Hemoglobin F may result in lower than expected % HbA1C results. Elsa Nevarez APRN, DIRT BIKE RACER CHEMISTRY ORDERABLES Final Result [facility] [address] [place] [address] * (ABNORMAL) CMP (Comprehensive Metabolic Panel) (07/19/2024 9:48 PM [facility]) Pathologist [facility] SODIUM 140 136 - 145 mmol/L 07/19/2024 10:34 PM [facility] POTASSIUM 4.3 3.5 - 5.1 mmol/L 07/19/2024 10:34 PM [facility] CHLORIDE 108(H) 98 - 107 mmol/L 07/19/2024 10:34 PM [facility] CO2, VENOUS 23 22 - 30 mmol/L 07/19/2024 10:34 PM [facility] ANION GAP 13.3 <18.0 mmol/L 07/19/2024 10:34 PM [facility] GLUCOSE 188(H) 70 - 99 mg/dL 07/19/2024 10:34 PM [facility] BUN 28(H) 10 - 20 mg/dL 07/19/2024 10:34 PM [facility] CREATININE, BLOOD 2.17(H) 0.60 - 1.00 mg/dL 07/19/2024 10:34 PM [facility] BUN/CREATININE RATIO 13 12 - 20 ratio 07/19/2024 10:34 PM [facility] TOTAL PROTEIN 7.3 6.0 - 8.0 g/dL 07/19/2024 10:34 PM [facility] ALBUMIN 3.7 3.5 - 5.0 g/dL 07/19/2024 10:34 PM [facility] A/G RATIO 1.0 1.0 - 2.2 07/19/2024 10:34 PM [facility] CALCIUM 10.1 8.7 - 10.5 mg/dL 07/19/2024 10:34 PM [facility] T BILI 0.5 0.2 - 1.2 mg/dL 07/19/2024 10:34 PM [facility] SGOT (AST) 17 6 - 42 U/L 07/19/2024 10:34 PM [facility] SGPT (ALT) 7 6 - 55 U/L 07/19/2024 10:34 PM [facility] ALKALINE PHOSPHATASE 93 40 - 150 U/L 07/19/2024 10:34 PM [facility] GFR, ESTIMATED 23(L) >=60 07/19/2024 10:34 PM [facility] Comment: Creatinine Clearance is the preferred criteria for selecting drug dose adjustments in renally impaired patients. The GFR is provided as additional pertinent clinical information. GFR is reported in mL/min/1.73 sq m. Calculation based on the Chronic Kidney Disease Epidemiology Collaboration (CKD- EPI) equation refit without adjustment for race. GFR, EST. 27(L) >=60 025 10:34 PM [facility] GFR, EST. NONAFRICAN 22(L) >=60 07/19/2024 10:34 PM [facility] Blood Venipuncture / Unknown 07/19/2024 9:48 PM [facility] 07/19/2024 10:08 PM [facility] us Oswaldo Sue MD CHEMISTRY ORDERABLES Final Result [facility] [address] [place] [address] * DUY SCREENING BILATERAL DIGITAL W CAD W HARLEEN (08/06/2022 3:00 PM [facility]) Anatomical Region Laterality Modality breast Bilateral Mammography 08/06/2022 3:12 PM [facility] Narrative 08/07/2022 3:59 PM [facility] - DUY SCREENING BILATERAL DIGITAL W CAD [...] to exams dated: 03/28/2020, 09/02/2019, 03/08/2019, 01/01/2018 [facility], 10/30/2017, and 10/27/2017 [facility]. BREAST TISSUE:There are scattered fibroglandular densities [...] exam. Electronically signed by: Dafne urena/penrad:08/07/2022 11:22:27 Qualitative Field Coordinator(s): SONI Lao)(Sergey), [facility] letter sent: Normal Exam Reading location: [...] to exams dated: 03/28/2020, 09/02/2019, 03/08/2019, 01/01/2018 [facility], 10/30/2017, and 10/27/2017 [facility]. BREAST TISSUE:There are scattered fibroglandular densities [...] exam. Electronically signed by: Dafne urena/penrad:08/07/2022 11:22:27 Qualitative Field Coordinator(s): SONI Lao)(M), [facility] letter sent: Normal Exam Reading location: [place] BI-RADS: 2 Benign us Travis Torrez MD IMSilvestre MAMMO ORDERABLES Final Resu lt * [facility] BONE DENSITOMETRY AXIAL SKELETON (08/06/2022 2:30 PM [facility]) Anatomical Region Laterality Modality BODY N/A Computed Radiogr aphy 08/07/2022 6:48 AM [facility] Impressions 08/07/2022 6:51 AM [facility] IMPRESSION: Low bone mass REFERENCE: Bone mineral [...] of Osteoporosis (http://www.nof.org/professionals/clinical-guidelines) Narrative 08/07/2022 6:51 AM [facility] EXAM DESCRIPTION: [facility] BONE DENSITOMETRY AXIAL SKELETON REASON FOR STUDY: 72 y/o year old F with given history of screening. 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 TW: Report ID: [id number] Reading Location: [place] [address] Procedure Note Brinda Neal MD - 08/07/2022 EXAM DESCRIPTION: [facility] BONE DENSITOMETRY AXIAL SKELETON REASON FOR STUDY: 72 y/o year old F with given history of screening. Supervisor Newspaper Deliveries/Model: [employer] (S/N [id number]) CLINICAL INFORMATION: Current height: 62 inches Maximum [...] by Brinda Neal M.D. TW: Report ID: [id number] Reading Location: [id number] IMPRESSION: Low bone mass REFERENCE: Bone mineral [...] Occult Blood - Diagnostic (04/30/2020 11:15 AM [facility]) [facility] OCCULT BLOOD DIAG Positive(A ) Negative 04/30/2020 11:53 AM [facility] Stool Non-Phlebotomy Collection / Unknown 04/30/2020 11:15 AM [facility] 04/30/2020 11:41 AM [facility] Leland Rowan MD BODY FLUIDS & STOOLS ORDERABLES Final Result [facility] [address] [place] [address] * Hepatitis Panel Acute (AHP)-BELÉN (02/25/2019 3:42 AM CDT) [facility] HEPATITIS A IGM ANTIBODY NON DETECTED NON DETECTED 02/25/2019 3:20 PM CDT [facility] Comment: IGM Antibodies to HAV not detected. Does not exclude early acute or recovered HAV infection. HEP B CORE AB (IGM) NON DETECTED NON DETECTED 02/25/2019 3:20 PM CDT [facility] Comment: IGM anti-HBC not detected. Does not exclude the possibility of exposure to or infection with HBV. HEPATITIS B SURFACE ANTIGEN NON DETECTED NON DETECTED 02/25/2019 3:20 PM CDT [facility] Comment: A nonreactive test result does [...] 0.12 <1 S/CO 02/25/2019 3:20 PM CDT [facility] Comment: Signal/Cutoff ratio < 0.79 is Nondetected Signal/Cutoff ratio 0.80-0.99 is Grayzone Signal/Cutoff ratio > 0.99 is Detected Supplemental assays are recommended if signal/cutoff ratio is >/=1.00. Signal/cutoff ratio result >/= 5.00 is 97% predictive of positivity for recombinant immunoblot assay (RIBA) and will be reported to the [place] Department of Public Health as required. 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 Care Teams Dental Appliance Fixer Relationship Specialty Start Date End Date Travis Torrez MD PCP - General Family Medicine 05/21/22 Carolee Tay APRN, DIRT BIKE RACER [address] [place] [address] Nurse Practitioner Certified Nurse Practitioner 08/20/24
--- OUTSIDE RECORDS SUMMARY | 2025-05-09 10:05 | XMS_ITS | Encounter Summary ---
Author Organization [facility] Address [address] [place] [address] Phone Care Team Providers Care Court Attendant Name Role Phone Julian Encarnacion MD Primary Care Provider [phone] Travis Torrez MD Primary Care Provider [phone] Carolee Tay APRN, ROOM ATTENDANT Unavailable Reason for Visit * Reason Comments Medication Refill Encounter Details Date Type Department Care Team (Late st Contact Info) Description 04/05/2021 Refill [facility] [address] [place] [address] Julian Encarnacion MD [address] [address] Medication Refill Social History Tobacco Use Types [...] RN - 04/05/2021 1:35 PM CDT Per [place] PDMP last fill date 02/19/21. Medication failed [...] Visits 1 month ago Arthralgia, unspecified joint [facility] - Julian Hines MD 5 months ago Type 2 diabetes mellitus without complication, with long-term current use of insulin ([facility]) [facility] Julian Graham MD 8 months ago Type 2 diabetes mellitus without complication, with long-term current use of insulin ([facility]) [facility] Julian Graham MD 10 months ago Hematemesis, presence of nausea not specified [facility] Julian Graham MD 11 months ago Hematemesis, presence of nausea not specified [facility] Julian Graham MD Upcoming Appointments PROPELLANT ASSEMBLER - Recent and Past Visits Recent [...] MD [facility] 02/18/20 Office Visit Aletha Anand, PAC [facility] Showing recent visits within past 460 [...] st Contact Info) Description 08/15/2025 10:00 AM OBSTETRICS TECH Office Visit [facility] - [facility]iology - [place] [address] [place] [address] Carolee Tay APRN, ROOM ATTENDANT [address] [place] [address] documented as of this encounter Visit Diagnoses Diagnosis Arthralgia, unspecified joint documented in this encounter Additional Health Concerns Infection Onset Date Last Indicated Resolved Time COVID - 19 07/20/2024 07/20/2024 07/20/2024 3:10 AM OBSTETRICS TECH Assessment Noted Time PHQ-9 Depression Total Score: 0 04/24/20 10:39 AM CDT documented as of this encounter Care Teams Court Attendant Relationship Specialty Start Date End Date Julian Encarnacion MD [address] [address] PCP - General Family Medicine 03/28/20 04/23/22 Travis Torrez MD [address] [address] PCP - General Family Medicine 05/21/22 Carolee Tay APRN, KIM [address] [place] [address] Nurse Practitioner Certified Nurse Practitioner 08/20/24 documented as of this encounter
--- OUTSIDE RECORDS SUMMARY | 2025-05-09 10:05 | XMS_ITS | Encounter Summary ---
Author Organization [facility] Address [address] [place] [address] Phone Care Team Providers Care Status Controller Name Role Phone Valerie Grimaldo MD Primary Care Provider + [phone] Cody Polk MD Unavailable [phone] Wen Nelson MD Unavailable José Miguel Alva MD Unavailable [phone] Drew Martínez MD Unavailable [phone] Lopez Nunez DO Unavailable [phone] Autumn Chapman OD Unavailable [phone] Alcon Camacho MD Unavailable [phone] Tess Brennan MD Unavailable [phone] Tee Moura MD Unavailable [phone] Michel Linda MD Unavailable Verena Crespo MD Unavailable [phone] Unknown, Notinfile Primary Care Provider Unavail able Julian Encarnacion MD Primary Care Provider Encounter Details Date Type Department Care Team (Late st Contact Info) Description 08/22/2017 Orders Only [facility] Provider, MD Tayler [address] [place] [address] Social History Tobacco Use Types Packs/Day Years Used Date Smoking Tobacco: Never Smokeless Tobacco: Never Alcohol Use Standard Drinks/Week Comments No 0 (1 standard drink = 0.6 oz pur e alcohol) Comments Unknown Sex and Gender Information Value Date Recorded Sex Assigned at Not on file Legal Sex Female 11:50 PM VP TREASURER Gender Identity Not on file Sexual Orientation Not on file documented as of this encounter Plan of Treatment Not on file documented as of this encounter Procedures Procedure Name Priority Date/Time Associated Diagnosis Comments DISCHARGE LABORATORY CUMULATIVE REPORT 08/22/2017 12:00 AM VP TREASURER documented in this encounter Results * DISCHARGE LABORATORY CUMULATIVE REPORT (08/22/2017 12:00 AM VP TREASURER) Narrative 08/22/2017 12:00 AM VP TREASURER Ordered by an unspecified provider. us Historical Provider LAB BLOOD ORDERABLES Soledad l Result documented in this encounter Visit Diagnoses Not on filedocumented in this encounter Care Teams Status Controller Relationship Specialty Start Date End Date Valerie Grimaldo MD PCP - General 09/27/16 03/16/20 Unknown, Notinfile PCP - General 03/17/20 11/21/20 Julain Encarnacion MD 2 [facility] [address] [place] [address] PCP - General Family Medicine 11/22/20 [place] [address] [facility] [address] [place] [address] Pulmonary Disease 02/27/17 Wen Nelson MD [address] [place] [address] Obstetrics and Gynecology 02/27/17 José Miguel Alva MD [address] [facility] [address] [place] [address] Gynecologic Oncology 02/27/17 Drew Martínez MD [address] [facility] [address] [place] [address] Orthopedic Surgery 02/27/17 Lopez Nunez DO [address] [facility] [address] [place] [address] Consulting Physician Gastroenterology 04/25/17 Autumn Chapman OD [address] [place] [address] Optometry 04/28/17 [place] [address] [facility] [address] [place] [address] Consulting Physician Cardiology 09/07/17 Tess Brennan MD [address] [facility] [address] [address] Referring Physician Gastroenterology 09/25/17 Tee Moura MD [address] [facility] [address] [address] Referring Physician Surgery 11/29/17 Michel Linda MD [address] [facility] [address] [address] Referring Physician General Surgery 03/11/19 Verena Crespo MD [address] [facility] [address] [address] Consulting Physician Nephrology 03/13/19 documented as of this encounter
--- OUTSIDE RECORDS SUMMARY | 2025-05-09 10:05 | XMS_ITS | Encounter Summary ---
Author Organization [facility] Address [address] [place] [address] Phone Care Team Providers Care Lathe Setup Operator Name Role Phone Valerie Grimaldo MD Primary Care Provider + [phone] Cody Polk MD Unavailable +[phone] Wen Nelson MD Unavailable José Miguel Alva MD Unavailable +[phone] Drew Martínez MD Unavailable [phone] Lopez Nunez DO Unavailable [phone] Autumn Chapman OD Unavailable [phone] Alcon Camacho MD Unavailable +[phone] Tess Brennan MD Unavailable [phone] Tee Moura MD Unavailable +[phone] Michel Linda MD Unavailable Verena Crespo MD Unavailable [phone] Unknown, Notinfile Primary Care Provider Unavail able Julian Encarnacion MD Primary Care Provider Encounter Details Date Type Department Care Team (Late st Contact Info) Description 11/07/2017 Orders Only [facility] Provider, MD Tayler [address] [place] [address] Social History Tobacco Use Types Packs/Day Years Used Date Smoking Tobacco: Never Smokeless Tobacco: Never Alcohol Use Standard Drinks/Week Comments No 0 (1 standard drink = 0.6 oz pur e alcohol) Comments No Sex and Gender Information Value Date Recorded Sex Assigned at Not on file Legal Sex Female 11:50 PM ROLLER CLEANER Gender Identity Not on file Sexual Orientation [...] on filedocumented in this encounter Care Teams Lathe Setup Operator Relationship Specialty Start Date End Date Valerie Grimaldo MD PCP - General 09/27/16 03/16/20 Unknown, Notinfile PCP - General 03/17/20 11/21/20 Julian Encarnacion MD [address] [address] PCP - General Family Medicine 11/22/20 [place] [address] [facility] [address] [place] [address] Pulmonary Disease 02/27/17 Wen Nelson MD [address] [place] [address] Obstetrics and Gynecology 02/27/17 José Miguel Alva MD [address] [facility] [address] [place] [address] Gynecologic Oncology 02/27/17 Drew Martínez MD [address] [place] [address] Orthopedic Surgery 02/27/17 Lopez Nunez DO [address] [place] [address] Consulting Physician Gastroenterology 04/25/17 Autumn Chapman OD [address] [place] [address] Optometry 04/28/17 [place] [address] [facility] [address] [place] [address] Consulting Physician Cardiology 09/07/17 Tess Brennan MD [address] [address] Referring Physician Gastroenterology 09/25/17 Tee Moura MD [address] [address] Referring Physician Surgery 11/29/17 Michel Linda MD [address] [address] Referring Physician General Surgery 03/11/19 Verena Crespo MD [address] [facility] [address] [place] [address] Consulting Physician Nephrology 03/13/19 documented as of this encounter
--- OUTSIDE RECORDS SUMMARY | 2025-05-09 10:05 | XMS_ITS | Encounter Summary ---
Author Organization [facility] Address [address] [place] [address] Phone Care Team Providers Care Pipe Washer Name Role Phone Valerie Grimaldo MD Primary Care Provider + [phone] Cody Polk MD Unavailable +[phone] Wen Nelson MD Unavailable José Miguel Alva MD Unavailable +[phone] Drew Martínez MD Unavailable +[phone] Lopez Nunez DO Unavailable [phone] Autumn Chapman OD Unavailable [phone] Alcon Camacho MD Unavailable [phone] Tess Brennan MD Unavailable +[phone] Tee Moura MD Unavailable [phone] Michel Linda MD Unavailable Verena Crespo MD Unavailable [phone] Unknown, Notinfile Primary Care Provider Unavail able Julian Encarnacion MD Primary Care Provider Encounter Details Date Type Department Care Team (Late st Contact Info) Description 09/05/2017 Orders Only [facility] Provider, MD Tayler [address] [place] [address] Social History Tobacco Use Types Packs/Day Years Used Date Smoking Tobacco: Never Smokeless Tobacco: Never Alcohol Use Standard Drinks/Week Comments No 0 (1 standard drink = 0.6 oz pur e alcohol) Comments No Sex and Gender Information Value Date Recorded Sex Assigned at Not on file Legal Sex Female 11:50 PM GORE INSERTER Gender Identity Not on file Sexual Orientation Not on file documented as of this encounter Functional Status * BP Location Answer Date of Assessment Author Left arm 09/08/2017 1:03 PM CHASET Jered Prado MA * BP Location Answer Date of Assessment Author Left arm 09/08/2017 1:03 PM CHASET Jered Prado MA documented as of this encounter Plan of Treatment Not on file documented as of this encounter Procedures Procedure Name Priority Date/Time Associated Diagnosis Comments DISCHARGE LABORATORY CUMULATIVE REPORT 09/05/2017 12:00 AM GORE INSERTER documented in this encounter Results * DISCHARGE LABORATORY CUMULATIVE REPORT (09/05/2017 12:00 AM GORE INSERTER) Narrative 09/05/2017 12:00 AM GORE INSERTER Ordered by an unspecified provider. us Historical Provider LAB BLOOD ORDERABLES Soledad l Result documented in this encounter Visit Diagnoses Not on filedocumented in this encounter Care Teams Pipe Washer Relationship Specialty Start Date End Date Valerie Grimaldo MD PCP - General 09/27/16 03/16/20 Unknown, Notinfile PCP - General 03/17/20 11/21/20 Julian Encarnacion MD 2 [facility] [address] [place] [address] PCP - General Family Medicine 11/22/20 [place] [address] [facility] [address] [place] [address] Pulmonary Disease 02/27/17 Wen Nelson MD [address] [place] [address] Obstetrics and Gynecology 02/27/17 José Miguel Alva MD [address] [facility] [address] [place], [place] [id number] Gynecologic Oncology 02/27/17 Drew Martínez MD [address] [address] Orthopedic Surgery 02/27/17 Lopez Nunez DO [address] [place] [address] Consulting Physician Gastroenterology 04/25/17 Autumn Chapman OD [address] [place] [address] Optometry 04/28/17 [place] [address] [facility] [address] [place] [address] Consulting Physician Cardiology 09/07/17 Tess Brennan MD [address] [facility] [address] [address] Referring Physician Gastroenterology 09/25/17 Tee Moura MD [address] [facility] [address] [address] Referring Physician Surgery 11/29/17 Michel Linda MD [address] [place] [address] [address] Referring Physician General Surgery 03/11/19 Verena Crespo MD [address] [address] Consulting Physician Nephrology 03/13/19 documented as of this encounter
--- OUTSIDE RECORDS SUMMARY | 2025-05-09 10:05 | XMS_ITS | Encounter Summary ---
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 Name Role Phone Valerie Grimaldo MD Primary Care Provider + [phone] Cody Polk MD Unavailable [phone] Wen Nelson MD Unavailable José Miguel Alva MD Unavailable +[phone] Drew Martínez MD Unavailable [phone] Lopez Nunez DO Unavailable [phone] Autumn Chapman OD Unavailable [phone] Alcon Camacho MD Unavailable [phone] Tess Brennan MD Unavailable [phone] Tee Moura MD Unavailable [phone] Michel Linda MD Unavailable Verena Crespo MD Unavailable [phone] Unknown, Notinfile Primary Care Provider Unavail able Julian Encarnacion MD Primary Care Provider Encounter Details Date Type Department Care Team (Late st Contact Info) Description 10/27/2017 Orders Only [facility] Provider, MD Tayler [address] [place] [address] Social History Tobacco Use Types Packs/Day Years Used Date Smoking Tobacco: Never Smokeless Tobacco: Never Alcohol Use Standard Drinks/Week Comments No 0 (1 standard drink = 0.6 oz pur e alcohol) Comments No Sex and Gender Information Value Date Recorded Sex Assigned at Not on file 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 Gender Identity Not on file Sexual [...] on filedocumented in this encounter Care Teams Turning Machine Operator Helper Relationship Specialty Start Date End Date Valerie Grimaldo MD PCP - General 09/27/16 03/16/20 Unknown, Notinfile PCP - General 03/17/20 11/21/20 Julian Encarnacion MD [address] [address] PCP - General Family Medicine 11/22/20 [place] [address] [facility] [address] [place] [address] Pulmonary Disease 02/27/17 Wen Nelson MD [address] [place] [address] Obstetrics and Gynecology 02/27/17 José Miguel Alva MD [address] [facility] [address] [place] [address] Gynecologic Oncology 02/27/17 Drew Martínez MD [address] [place] [address] Orthopedic Surgery 02/27/17 Lopez Nunez DO [address] [place] [address] Consulting Physician Gastroenterology 04/25/17 Autumn Chapman OD [address] [place] [address] Optometry 04/28/17 [place] [address] [facility] [address] [place] [address] Consulting Physician Cardiology 09/07/17 Tess Brennan MD [address] [address] Referring Physician Gastroenterology 09/25/17 Tee Moura MD [address] [address] Referring Physician Surgery 11/29/17 Michel Linda MD [address] [address] Referring Physician General Surgery 03/11/19 Verena Crespo MD [address] [facility] [address] [place] [address] Consulting Physician Nephrology 03/13/19 documented as of this encounter
[2025-05-09 18:46] LABS: Hematocrit 42.5 % (37.0-47.0); Hemoglobin 12.8 g/dL (12.0-15.0); Mean Corpuscular HGB Conc 30.1 g/dl (32-36); Mean Corpuscular Hemoglobin 27.0 pg (26-34); Mean Corpuscular Volume 89.7 fl (80-100); Platelet Count Result 260 k/mm3 (150-375); Red Blood Count 4.74 M/mm3 (4.2-5.4); White Blood Count 9.3 K/mm3 (4.5-10.0)
[2025-05-09 19:05] LABS: Albumin Level 4.0 g/dL (3.5-5.1); Anion Gap 9 mmol/L (4-12); Blood Urea Nitrogen 15 mg/dL (7-17); Calcium 10.0 mg/dL (8.4-10.2); Carbon Dioxide 28 mmol/L (22-30); Chloride 103 mmol/L (98-107); Estimated Glomerular Filt Rate 25; Glucose 88 mg/dL (65-110); Potassium 3.9 mmol/L (3.4-5.0); Sodium 140 mmol/L (137-145)
[2025-05-09 19:12] LABS: Parathyroid Intact 44.7 pg/mL (14.5-75.2)
[2025-05-09 19:35] LABS: Total Protein Urine Random 269 mg/dL; Ur Ttl Prot Creatinine Ratio 3.02 mg/mg (0-0.20)
== END 2025-05-09 09:28 | disposition home or self-care (01) ==
PROVIDERS: PCP Family Medicine; Visit Provider Internal Medicine Nephrology
DX: E78.5 Hyperlipidemia, unspecified (principal); N18.31 Chronic kidney disease, stage 3a
CPT/HCPCS: 36415; 80069; 82570; 83970; 84156; 85027